=== PATIENT | female | born 1945 | race African-American/Black ===

== ENCOUNTER 2016-07-04 15:44 | Observation (INO) | payer OTHER ==
[2016-07-04] MEDS ORDERED: ASPIRIN 81 MG CHEWABLE TABLETS PO ONE (16:09)
--- NOTE | 2016-07-04 16:09 | PDOC ---
History of Present Illness <Maria Teresa Gimenez - Last Filed: 07/04/16 18:14> - History of Present Illness Beta Marian Contraindications (Core Measure): Yes: Not Prescribed <Valarie Rocha - Last Filed: 07/04/16 19:57> - General Stated Complaint: Irregular Heart Beat Time Seen by Provider: 07/04/16 16:08 - History of Present Illness Initial Comments: 07/04/16 17:26 Patient is a 70 year old female with significant medical hx of early Parkinson s with resting tremor, factor VII blood deficiency, HTN, IDDM, hypothyroidism, chronic renal disease (not on dialysis) who is presenting to the ED with complaint of racing heart rate since yesterday. Patient was in [place] over the past three days and returned yesterday. Last night the patient began having palpitations and went to sleep. This morning the patient woke up and had a return of her symptoms around 11AM. She endorses some mild shortness of breath but denies any chest pain. Patient dialed 911 to come to the ED. Denies lightheadedness, dizziness, diaphoresis, chest pain, LOC, nausea, vomiting, or abdominal pain. The patient received a stress test one year ago that was WNL. Thread Winder: Leeroy Silvestre MD Surgical Hx: cholecystectomy, appendectomy, hernia surgery x4, hysterectomy Social Hx: Denies tobacco, alcohol, or recreational drug use. (Maria Teresa Gimenez) Past History <Maria Teresa Gimenez - Last Filed: 07/04/16 18:14> - Past Medical History Anemia: No Asthma: No Cancer: No Cardiac Disorders: Yes (RAPID HEART BEAT AT TIMES) CVA: No COPD: No CHF: No Dementia: No Diabetes: Yes GI Disorders: Yes (ACID REFLUX) Disorders: No HTN: Yes Hypercholesterolemia: Yes Liver Disease: (fatty liver) Seizures: No Thyroid Disease: Yes (HYPOACTIVE) - Surgical History Abdominal Surgery: Yes (ventral HERNIA 2009, 2013) Appendectomy: Yes (2006) Cardiac Surgery: No Cholecystectomy: Yes Lung Surgery: No Neurologic Surgery: No Orthopedic Surgery: No - Immunization History Immunization Up to Date: No - Psycho/Social/Smoking Cessation Hx Anxiety: No Suicidal Ideation: No Smoking Status: Yes Smoking History: Former smoker Have you smoked in the past 12 months: No Number of Cigarettes Smoked Daily: 0 If you are a former smoker, when did you quit?: 1982 Hx Alcohol Use: No Drug/Substance Use Hx: No Substance Use Type: Alcohol Hx Substance Use Treatment: No <Valarie Rocha - Last Filed: 07/04/16 19:57> - Past Medical History Allergies/Adverse Reactions: Allergies Allergy/AdvReac Type Severity Reaction Status Date / Time No Known Drug Allergies Allergy Verified 07/04/16 16:14 Home Medications: Ambulatory Orders Amlodipine Besylate [Norvasc -] 5 mg PO DAILY 07/26/15 Hydrochlorothiazide [Hctz -] 25 mg PO DAILY 07/26/15 Insulin Glargine,Hum.rec.anlog [Lantus (10mL VIAL) -] 50 units SQ HS 07/26/15 Insulin Lispro [Humalog] 20 unit SQ AC 07/26/15 Levothyroxine [Synthroid -] 75 mcg PO DAILY 07/26/15 Losartan Potassium 50 mg PO DAILY 07/26/15 Metoprolol Succinate [Toprol XL -] 50 mg PO DAILY 07/26/15 Omeprazole [Prilosec] 40 mg PO DAILY 07/26/15 Carbidopa/Levodopa [Carbidopa-Levodopa 25-100 Tab] 1 each PO DAILY 05/15/16 Hydralazine HCl 50 mg PO DAILY 05/15/16 Linagliptin [Tradjenta] 5 mg PO DAILY 05/15/16 Cardiac Specific PMH - Complaint Specific PMHX GERD: No Pacemaker: No <Valarie Rocha - Last Filed: 07/04/16 19:57> Review of Systems <Maria Teresa Gimenez - Last Filed: 07/04/16 18:14> <Valarie Rocha - Last Filed: 07/04/16 19:57> - Review of Systems Comments:: 07/04/16 17:38 CONSTITUTIONAL: Absent: fever, chills, diaphoresis, generalized weakness, malaise, loss of appetite HEENT: Absent: rhinorrhea, nasal congestion, throat pain, throat swelling, difficulty swallowing, mouth swelling, ear pain, eye pain, visual changes CARDIOVASCULAR: Present: irregular heart rate, palpitations Absent: chest pain, syncope, lightheadedness, peripheral edema RESPIRATORY: Present: shortness of breath Absent: cough, dyspnea with exertion, orthopnea, wheezing, stridor, hemoptysis GASTROINTESTINAL: Absent: abdominal pain, abdominal distension, nausea, vomiting, diarrhea, constipation, melena, hematochezia GENITOURINARY: Absent: dysuria, frequency, urgency, hesitancy, hematuria, flank pain, genital pain MUSCULOSKELETAL: Absent: myalgia, arthralgia, joint swelling SKIN: Absent: rash, itching, pallor HEMATOLOGIC/IMMUNOLOGIC: Absent: easy bleeding, easy bruising, lymphadenopathy, frequent infections ENDOCRINE: Absent: unexplained weight gain, unexplained weight loss, heat intolerance, cold intolerance NEUROLOGIC: Absent: headache, focal weakness or paresthesia, dizziness, unsteady gait, seizure, mental status changes, bladder or bowel incontinence. PSYCHIATRIC: Absent: anxiety, depression, suicidal or homicidal ideation, hallucinations (Maria Teresa Gimenez) *Physical Exam <Maria Teresa Gimenez - Last Filed: 07/04/16 18:14> <Valarie Rocha - Last Filed: 07/04/16 19:57> - Vital Signs Last Vital Signs Temp Pulse Resp BP Pulse Ox 97.9 F 71 18 162/69 99 07/04/16 16:10 07/04/16 18:15 07/04/16 18:15 07/04/16 16:10 07/04/16 18:15 - Physical Exam Comments: 07/04/16 17:38 GENERAL: Well developed, well nourished. Awake and alert. No acute distress. HEENT: Normocephalic, atraumatic. PERRLA, EOMI. No conjunctival pallor. Sclera are non- icteric. Moist mucous membranes. Oropharynx is clear. NECK: Supple. Full ROM. Mild JVD. Carotid pulses 2+ and symmetric, without bruits. No thyromegaly. No lymphadenopathy. CARDIOVASCULAR: Regular rate and rhythm. No bruits. No murmurs, rubs, or gallops. Distal pulses are 2+ and symmetric. PULMONARY: No evidence of respiratory distress. Lungs clear to auscultation bilaterally. No wheezing, rales or rhonchi. ABDOMINAL: Soft. Non-tender. Non-distended. No rebound or guarding. No organomegaly. Normoactive bowel sounds. MUSCULOSKELETAL: Normal range of motion at all joints. No bony deformities or tenderness. No CVA tenderness. EXTREMITIES: 2+ pitting edema lower extremities bilaterally. No cyanosis. No clubbing. No calf tenderness. SKIN: Warm and dry. Normal capillary refill. No rashes. No jaundice. NEUROLOGICAL: Alert, awake, appropriate. Cranial nerves 2-12 intact. Normal speech. Gait is normal without ataxia. PSYCHIATRIC: Cooperative. Good eye contact. Appropriate mood and affect. (Maria Teresa Gimenez) Heart Score/ECG Review <Maria Teresa Gimenez - Last Filed: 07/04/16 18:14> <Valarie Rocha - Last Filed: 07/04/16 19:57> #1 07/04/16 17:40 Normal sinus rhythm at 92 bpm Minimal voltage criteria for LVH, may be normal variant Nonspecific T wave abnormality Abnormal ECG (Maria Teresa Gimenez) ED Treatment Course - LABORATORY CBC & Chemistry Diagram: 07/04/16 16:32 07/04/16 16:17 <Maria Teresa Gimenez - Last Filed: 07/04/16 18:14> - LABORATORY CBC & Chemistry Diagram: 07/04/16 16:32 07/04/16 16:17 <Valarie Rocha - Last Filed: 07/04/16 19:57> - ADDITIONAL ORDERS Additional order review: Laboratory Results 07/04/16 07/04/16 07/04/16 16:32 16:32 16:17 INR 1.57 H Sodium 139 Potassium 4.4 Chloride 106 Carbon Dioxide 21 D Anion Gap 12 BUN 39 H Creatinine 2.1 H Creat Clearance w eGFR 23.35 Random Glucose 396 H* D Calcium 9.9 Magnesium 1.6 L Total Bilirubin 0.4 D AST 15 D ALT 11 L Alkaline Phosphatase 139 H Creatine Kinase 70 Troponin I < 0.02 B-Natriuretic Peptide 151.27 H Total Protein 7.3 Albumin 3.4 07/04/16 16:32 RBC 3.76 MCV 89.7 MCHC 32.1 RDW 14.0 MPV 9.2 D Neutrophils % 77.2 D Lymphocytes % 17.0 D Monocytes % 5.3 Eosinophils % 0.3 Basophils % 0.2 - RADIOLOGY Radiology Studies Ordered: Category Date Time Status CHEST X-RAY PORTABLE* [RAD] Stat Radiology 07/04/16 16:10 Completed Radiograph Interpretation: 07/04/16 18:14 Chest X-Ray Impression: No acute pathology or significant change since 05/15/2016. Reported By: Norberto Haney MD (Maria Teresa Gimenez) - Medications Given in the ED: ED Medications Discontinued Medications Generic Name Dose Route Start Last Admin Trade Name Samuel PRN Reason Stop Dose Admin Aspirin 162 mg 07/04/16 16:09 07/04/16 17:06 Asa - PO 07/04/16 16:10 Not Given ONCE ONE *DC/Admit/Observation/Transfer <Maria Teresa Gimenez - Last Filed: 07/04/16 18:14> - Discharge Dispostion Admit: Yes <Valarie Rocha - Last Filed: 07/04/16 19:57> Diagnosis at time of Disposition: Palpitations HTN (hypertension) Qualifiers: Hypertension type: essential hypertension Qualified Code(s): I10 - Essential ( primary) hypertension Chest pain Qualifiers: Chest pain type: other chest pain Qualified Code(s): R07.89 - Other chest pain ; R07.8 - Other chest pain DM2 (diabetes mellitus, type 2) Qualifiers: Diabetes mellitus complication status: with hyperglycemia 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 (Maria Teresa Gimenez)
[2016-07-04 16:14] VITALS: BMI 39.4
[2016-07-04] MEDS ORDERED: ASPIRIN 81 MG CHEWABLE TABLETS ONE (16:18)
[2016-07-04 17:01] LABS: EOSINOPHIL 0.3 % (0-4.5)
[2016-07-04 17:19] LABS: ALBUMIN 3.4 g/dl (3.4-5.0); ANION GAP 12 (8-16); BILIRUBIN,TOTAL 0.4 mg/dL (0.2-1.0); CALCIUM 9.9 mg/dL (8.5-10.1); CO2 21 mmol/L (21-32); CREATININE 2.1 mg/dL (0.55-1.02); MAGNESIUM 1.6 mg/dL (1.8-2.4); SGOT/AST 15 U/L (15-37); SGPT/ALT 11 U/L (12-78)
[2016-07-04 17:20] LABS: BASOPHIL 0.2 % (0-2.0); MCH 28.7 pg (25.7-33.7); MCHC 32.1 g/dl (32.0-36.0); MEAN CELL VOLUME 89.7 fl (80-96); MEAN PLT VOLUME 9.2 fl (7.5-11.1); NEUTROPHILS 77.2 % (42.8-82.8); PLATELET COUNT 208 K/MM3 (134-434); WHITE BLOOD COUNT 6.7 K/mm3 (4.0-10.0)
[2016-07-04 17:22] LABS: ALK PHOS 139 U/L (45-117); TOT PROT 7.3 g/dl (6.4-8.2); TROPONIN I < 0.02 ng/ml (0.00-0.05)
[2016-07-04 17:37] LABS: INR 1.57 (0.82-1.09); PROTHROMBIN TIME (PATIENT) 17.4 SEC (9.98-11.88)
[2016-07-04 18:01] LABS: GLUCOSE,RANDOM 396 mg/dL (74-106)
--- NOTE | 2016-07-04 20:03 | HP ---
CHIEF COMPLAINT: palpitations PCP: Isaac Murguia Cardio: Dr. Hernandez HISTORY OF PRESENT ILLNESS: 70 yr old woman with IDDM, HTN, hypothyroidism, GERD, CKD, BIBEMS for continuous palpitations and intemittent chest pain since 2pm this afternoon. She woke up feeling well, did not have breakfast, did not take her anti-htn meds in the morning, took omeprazole, thyroid and parkinson's meds. She was walking around when the palpitations began and did not resolve with rest or laying down so she called 911. She started feel better once she received an IV medication from the EMS, doesn't recall what it was. Chest pain is located lower mid-sternum, 2/10, nonradiating nonpositional, starting after the palpitations. Denies fever, sob, headache, n/v, hematochezia, visual changes, diarrhea, bug bites. full physical last year, no recent pcp visit, no changes in medications. Was evaluated by Dr. Hernandez with holter monitor last year, found not have arrhythmia. ER course was notable for: (1) ASA 162mg (2) EKG Recent Travel: [place] on Monday for outdoor wedding, drive with frequent rest stops. PAST MEDICAL HISTORY: GERD uncontrolled IDDM II HTN Hypothyroidism CKD stage 4 (GFR 23%) hx of SBO 07/2015 PAST SURGICAL HISTORY: Ventral hernia repairs 2009, 2013, 2016 Appendectomy 2007 Cholecystectomy 2004 Hysterectomy 2004 Social History: lives with sone Smoking: former, quit 1981, 1pk/day for 5 yrs Alcohol: rare Drugs: denies Family History: [place] Allergies No Known Drug Allergies Allergy (Verified 07/04/16 16:14) HOME MEDICATIONS: Home Medications Medication Instructions Recorded Amlodipine Besylate [Norvasc -] 5 mg PO DAILY 07/26/15 Hydrochlorothiazide [Hctz -] 25 mg PO DAILY 07/26/15 Insulin Glargine,Hum.rec.anlog 50 units SQ HS 07/26/15 [Lantus (10mL VIAL) -] Insulin Lispro [Humalog] 20 unit SQ AC 07/26/15 Levothyroxine [Synthroid -] 75 mcg PO DAILY 07/26/15 Losartan Potassium 50 mg PO DAILY 07/26/15 Metoprolol Succinate [Toprol XL -] 50 mg PO DAILY 07/26/15 Omeprazole [Prilosec] 40 mg PO DAILY 07/26/15 Carbidopa/Levodopa 1 each PO DAILY 05/15/16 [Carbidopa-Levodopa 25-100 Tab] Hydralazine HCl 50 mg PO DAILY 05/15/16 Linagliptin [Tradjenta] 5 mg PO DAILY 05/15/16 REVIEW OF SYSTEMS CONSTITUTIONAL: Absent: fever, chills, diaphoresis, generalized weakness, malaise, loss of appetite, weight change HEENT: Absent: rhinorrhea, nasal congestion, throat pain, throat swelling, difficulty swallowing, mouth swelling, ear pain, eye pain, visual changes CARDIOVASCULAR: Present: chest pain, palpitations Absent: syncope, irregular heart rate, lightheadedness, peripheral edema RESPIRATORY: Absent: cough, shortness of breath, dyspnea with exertion, orthopnea, wheezing, stridor, hemoptysis GASTROINTESTINAL: Present: occasional constipation Absent: abdominal pain, abdominal distension, nausea, vomiting, diarrhea, melena , hematochezia GENITOURINARY: Absent: dysuria, frequency, urgency, hesitancy, hematuria, flank pain, genital pain MUSCULOSKELETAL: Absent: myalgia, arthralgia, joint swelling, back pain, neck pain SKIN: Absent: rash, itching, pallor HEMATOLOGIC/IMMUNOLOGIC: Absent: easy bleeding, easy bruising, lymphadenopathy, frequent infections ENDOCRINE: Absent: unexplained weight gain, unexplained weight loss, heat intolerance, cold intolerance NEUROLOGIC: Absent: headache, focal weakness or paresthesias, dizziness, unsteady gait, seizure, mental status changes, bladder or bowel incontinence PHYSICAL EXAMINATION Vital Signs - 24 hr 07/04/16 07/04/16 16:10 18:15 Temperature 97.9 F Pulse Rate 105 H Pulse Rate [ 71 Radial] Respiratory 18 18 Rate Blood Pressure 162/69 O2 Sat by Pulse 99 99 Oximetry (%) GENERAL: Awake, alert, and fully oriented, in no acute distress. HEAD: Normal with no signs of trauma. EYES: Pupils equal, round and reactive to light, extraocular movements intact, sclera anicteric, conjunctiva clear. No lid lag. EARS, NOSE, THROAT: Ears normal, nares patent, oropharynx clear without exudates /lesions. Moist mucous membranes. NECK: Normal range of motion, supple without lymphadenopathy, JVD, or masses. no thyromegaly. LUNGS: Breath sounds equal, clear to auscultation bilaterally. No wheezes, and no crackles. No accessory muscle use. chest non-tender to palpation. HEART: Regular rate and rhythm, normal S1 and S2 without murmur, rub or gallop. ABDOMEN: Soft, obese, well healed scars, nontender, not distended, normoactive bowel sounds, no guarding, no rebound, no masses. MUSCULOSKELETAL: Normal range of motion at all joints. No bony deformities or tenderness. No CVA tenderness. UPPER EXTREMITIES: 2+ pulses, warm, well-perfused. No cyanosis. No clubbing. No peripheral edema. LOWER EXTREMITIES: 2+ pulses, warm, well-perfused. No calf tenderness. No peripheral edema. NEUROLOGICAL: Cranial nerves II-XII intact. Normal speech. facial symmetry PSYCHIATRIC: Cooperative. Good eye contact. Appropriate mood and affect. SKIN: Warm, dry, normal turgor, no rashes or lesions noted, normal capillary refill. Laboratory Results - last 24 hr 07/04/16 07/04/16 07/04/16 16:17 16:32 16:32 WBC 6.7 RBC 3.76 Hgb 10.8 Hct 33.7 MCV 89.7 MCHC 32.1 RDW 14.0 Plt Count 208 MPV 9.2 D Neutrophils % 77.2 D Lymphocytes % 17.0 D Monocytes % 5.3 Eosinophils % 0.3 Basophils % 0.2 INR 1.57 H Sodium 139 Potassium 4.4 Chloride 106 Carbon Dioxide 21 D Anion Gap 12 BUN 39 H Creatinine 2.1 H Creat Clearance w eGFR 23.35 Random Glucose 396 H* D Calcium 9.9 Magnesium 1.6 L Total Bilirubin 0.4 D AST 15 D ALT 11 L Alkaline Phosphatase 139 H Creatine Kinase 70 Troponin I < 0.02 B-Natriuretic Peptide Total Protein 7.3 Albumin 3.4 07/04/16 16:32 WBC RBC Hgb Hct MCV MCHC RDW Plt Count MPV Neutrophils % Lymphocytes % Monocytes % Eosinophils % Basophils % INR Sodium Potassium Chloride Carbon Dioxide Anion Gap BUN Creatinine Creat Clearance w eGFR Random Glucose Calcium Magnesium Total Bilirubin AST ALT Alkaline Phosphatase Creatine Kinase Troponin I B-Natriuretic Peptide 151.27 H Total Protein Albumin Home Medications Medication Instructions Recorded Amlodipine Besylate [Norvasc -] 5 mg PO DAILY 07/26/15 Hydrochlorothiazide [Hctz -] 25 mg PO DAILY 05/22/16 Insulin Glargine,Hum.rec.anlog 50 units SQ HS 07/26/15 [Lantus (10mL VIAL) -] Insulin Lispro [Humalog] 20 unit SQ AC 07/26/15 Levothyroxine [Synthroid -] 75 mcg PO DAILY 07/26/15 Losartan Potassium 50 mg PO DAILY 07/26/15 Metoprolol Succinate [Toprol XL -] 50 mg PO DAILY 07/26/15 Omeprazole [Prilosec] 40 mg PO DAILY 07/26/15 Carbidopa/Levodopa 1 each PO DAILY 05/15/16 [Carbidopa-Levodopa 25-100 Tab] Hydralazine HCl 50 mg PO DAILY 05/15/16 Linagliptin [Tradjenta] 5 mg PO DAILY 05/15/16 ASSESSMENT/PLAN: 70 yr old woman with HTN, IDDM II, presents with atypical chest pain and palpitations, found to have elevated BP placed in observation to r/o ID. - Pt did not have medication list with, will need to verify medication list with pharmacy in the morning. #Atypical chest pain/palpitations, Heart Score 5 - Trend troponins x3 - echo in the morning - continuous cardiac monitoring to r/o arrhythmia - last echo 06/2011 - normal, last stress test 06/2011 clear - tachycardia and elevated BP in setting of medication non-compliance and poor po intake, will re-start anti-htn's and hydrate, r/o exacerbation of thyroid dysfunction, tsh and t4 - consider cardiology evaluation or outpt referral for further assessment, pt not on statin. #Uncontrolled HTN - Norvasc 5mg po daily - Toprol XL 50mg po daily - Hydralazine 50mg po daily - hold hctz 25mg po daily, losartan 50mg po daily due to YASIR - outpatient f/u with PCP for medication optimization(pt on multiple medications likely leading to poor medication compliance) #YASIR on CKD stage 4 -- corrected Na 144 - suspicious for pre-renal due to poor po intake, hydrate IVF 1/2 NS bolus, encourage po intake - urine electrolytes, urine creatine for further evaluation; UrNa >40, FENa 1.5% , RFI 2.1%, likely component of CKD - hold diuretics, avoid nephrotoxic medications - repeat BMP in the AM #IDDM 2, uncontrolled - HbA1c pending - NISS, BGM ACHS - levemir 50subq HS - hold oral hypoglycemics - tradjenta 5mg po 1 tablet daily #Hypothyroidism - levothyroxine 75mcg po daily - TSH and T4 wnl #Parkinson's disease - Sinemet 1 tablet po daily #HypoMg - Mag oxide 800mg po #DVT - SCD's - anticipate short stay #GI - prolisec 40mg po daily #Diet - diabetic, low sodium Visit type - Emergency Visit Emergency Visit: Yes ED Registration Date: 07/04/16 Care time: The patient presented to the Emergency Department on the above date and was hospitalized for further evaluation of their emergent condition. - New Patient This patient is new to me today: Yes Date on this admission: 07/04/16 - Critical Care Critical Care patient: No
[2016-07-04] MEDS ORDERED: SODIUM CHLORIDE 0.45% 500 ML IV SCH (21:00)
--- NOTE | 2016-07-04 21:10 | PN ---
<Todd Colin - Last Filed: 07/04/16 21:10> Teaching Attending Note Name of Resident: Madiha Guaman <Sony Rosales - Last Filed: 07/04/16 21:43> Teaching Attending Note ATTENDING PHYSICIAN STATEMENT I saw and evaluated the patient. I reviewed the resident's note and discussed the case with the resident. I agree with the resident's findings and plan as documented. SUBJECTIVE: Chief Complaint: Palpitations x1 days 70 yof one day hx of palpitations associated with epigastric pain that was 2/10 in intensity and resolved after arrival to ed. She reports prev epi of pal and was monitored with home holter monitor however, no arrhythmias were identified. PMH HTN, diabetes, dyslipidemia, hypothyroidism Surg appendectomy , cholecystectomy, abdominal hernia, hysterectomy Allergies: None Social: No drugs, Quit smoking 1981, No alcohol Family history: Noncontributory OBJECTIVE: Vital Signs: Last Vital Signs Temp Pulse Resp BP Pulse Ox 97.9 F 71 18 162/69 99 07/04/16 16:10 07/04/16 18:15 07/04/16 18:15 07/04/16 16:10 07/04/16 18:15 Physical Exam: GENERAL: Awake, alert, and fully oriented, in no acute distress HEENT: Atraumatic. PERRLA, EOMI. Moist mucosa. No JVD LUNGS: No distress, speaks full sentences, clear to auscultation bilaterally HEART: Regular rate and rhythm, normal S1 and S2, no murmurs, rubs or gallops, peripheral pulses normal and equal bilaterally. ABDOMEN: Soft, nontender, normoactive bowel sounds. No guarding, no rebound. No masses EXTREMITIES: Normal inspection, Normal range of motion, no edema. No clubbing or cyanosis. NEUROLOGICAL: Cranial nerves II through XII grossly intact. Normal speech, normal gait, no focal sensorimotor deficits SKIN: Warm, Dry, normal turgor, no rashes or lesions noted. Labs: CBCD WBC 6.7 K/mm3 (4.0-10.0) 07/04/16 16:32 RBC 3.76 M/mm3 (3.60-5.2) 07/04/16 16:32 Hgb 10.8 GM/dL (10.7-15.3) 07/04/16 16:32 Hct 33.7 % (32.4-45.2) 07/04/16 16:32 MCV 89.7 fl (80-96) 07/04/16 16:32 MCHC 32.1 g/dl (32.0-36.0) 07/04/16 16:32 RDW 14.0 % (11.6-15.6) 07/04/16 16:32 Plt Count 208 K/MM3 (134-434) 07/04/16 16:32 MPV 9.2 fl (7.5-11.1) D 07/04/16 16:32 CMP Sodium 139 mmol/L (136-145) 07/04/16 16:17 Potassium 4.4 mmol/L (3.5-5.1) 07/04/16 16:17 Chloride 106 mmol/L (98-107) 07/04/16 16:17 Carbon Dioxide 21 mmol/L (21-32) D 07/04/16 16:17 Anion Gap 12 (8-16) 07/04/16 16:17 BUN 39 mg/dL (7-18) H 07/04/16 16:17 Creatinine 2.1 mg/dL (0.55-1.02) H 07/04/16 16:17 Creat Clearance w eGFR 23.35 (>60) 07/04/16 16:17 Calcium 9.9 mg/dL (8.5-10.1) 07/04/16 16:17 Total Bilirubin 0.4 mg/dL (0.2-1.0) D 07/04/16 16:17 AST 15 U/L (15-37) D 07/04/16 16:17 ALT 11 U/L (12-78) L 07/04/16 16:17 Alkaline Phosphatase 139 U/L (45-117) H 07/04/16 16:17 Total Protein 7.3 g/dl (6.4-8.2) 07/04/16 16:17 Albumin 3.4 g/dl (3.4-5.0) 07/04/16 16:17 Imaging: EXAM#: TYPE/EXAM: RESULT: [id number] CT/ABDOMEN CT WITHOUT CONTRAST HISTORY PROVIDED: Abdominal pain. Sequential axial images were obtained from the domes of the diaphragm through the aortic bifurcation following administration of oral contrast material. The liver, spleen, pancreas, adrenal glands and kidneys demonstrate no significant abnormalities. Patient is S/P cholecystectomy. There is no evidence of biliary ductal dilatation. There is no evidence of intra- abdominal or retroperitoneal lymphadenopathy or fluid collections. The density is noted within the anterior abdominal wall at the site of an incisional scar. These changes may be postoperative in nature. No discrete abscess or hematoma is identified. Clinical correlation is advised. IMPRESSION: Postoperative changes of the anterior abdominal wall, otherwise essentially normal CT scan of the abdomen with no evidence of acute pathology. <> Reported By: Norberto Haney MD ASSESSMENT AND PLAN: 1.Palpitations and atypical chest pain in a patient with multiple risk factors for CAD - Serial cardiac enzymes - Echocardiogram - Telemetry monitoring - Cardiology evaluation - Update TSH 2 Uncontrolled HTN- noncompliant with meds today - Reinstate home medications. Monitor blood pressure and adjust medications accordingly - Hold diuretics 3.Acute renal failure - IVF - Hold diuretics - Repeat bmp in AM 4 Diabetes- uncontrolled - Stat dose short acting insulin - Hold oral hypo and cover with insulin sliding scale and basal insulin. 5 DVT PPX - SCDs Place under observation. Documentation prepared by Sony Rosales, acting as medical operations supervisor for Dr. Cristi MD.
[2016-07-04] MEDS ORDERED: MAGNESIUM OXIDE 400 MG TABLET (FP) PO ONE (21:18)
[2016-07-04] MEDS: amLODIPine BESYLATE 5 MG TABLET (FP) PO SCH (21:30)
[2016-07-04] MEDS ORDERED: INSULIN DETEMIR 100 UNITS/ML MDV SQ SCH (22:00)
[2016-07-04] MEDS ORDERED: METOPROLOL TARTRATE 25 MG TABLET (FP) PO ONE (22:41)
[2016-07-04] MEDS ORDERED: amLODIPine BESYLATE 5 MG TABLET (FP) ONE (22:58)
[2016-07-04] MEDS ORDERED: MAGNESIUM OXIDE 400 MG TABLET (FP) ONE (22:59)
[2016-07-04] MEDS ORDERED: METOPROLOL TARTRATE 25 MG TABLET (FP) ONE (22:59)
[2016-07-04] MEDS ORDERED: INSULIN DETEMIR 100 UNITS/ML MDV SQ ONE (23:01)
[2016-07-04] MEDS: INSULIN SLIDING SCALE (NOVOLOG) 1 VIAL SQ SCH (23:14)
[2016-07-05 00:56] LABS: URINE CREATININE 77.3 mg/dL (20-320)
[2016-07-05 01:01] LABS: TROPONIN I 0.05 ng/ml (0.00-0.05)
[2016-07-05 01:37] LABS: THYROID STIMULATING HORMONE 0.93 uIU/ml (0.358-3.74)
[2016-07-05] MEDS: INSULIN SLIDING SCALE (NOVOLOG) 1 VIAL SQ SCH ×3 (06:33→16:32)
[2016-07-05] MEDS ORDERED: INSULIN (NOVOLOG) ASPART 100 UNITS/ML 10ML VIAL SQ SCH (07:00)
[2016-07-05] MEDS ORDERED: LEVOTHYROXINE NA 75 MCG TABLET (FP) PO SCH (07:00)
[2016-07-05 07:50] LABS: CALCIUM 10.2 mg/dL (8.5-10.1)
[2016-07-05 07:53] LABS: COCKROFT - GAULT 46.019; CREATININE 1.9 mg/dL (0.55-1.02)
[2016-07-05 08:53] LABS: TROPONIN I 0.05 ng/ml (0.00-0.05)
[2016-07-05] MEDS: amLODIPine BESYLATE 5 MG TABLET (FP) PO SCH (09:24)
[2016-07-05] MEDS ORDERED: PANTOPRAZOLE 40 MG TABLET (FP) PO SCH (10:00)
[2016-07-05] MEDS ORDERED: CARBIDOPA/LEVODOPA 25/100 TABLET (FP) PO SCH (10:00)
[2016-07-05 10:24] LABS: URINE APPEARANCE CLOUDY; URINE BILIRUBIN NEGATIVE (NEGATIVE); URINE COLOR LTYELLOW; URINE GLUCOSE (UA) NEGATIVE (NEGATIVE); URINE KETONE NEGATIVE (NEGATIVE); URINE NITRITE NEGATIVE (NEGATIVE); URINE UROBILINOGEN NEGATIVE E.U./dl (0.2-1.0)
[2016-07-05 10:27] LABS: URINE BLOOD 1+ (NEGATIVE); URINE LEUK ESTERASE 3+ (NEGATIVE); URINE PROTEIN 2+ (NEGATIVE)
[2016-07-05 11:18] LABS: URINE MUCUS RARE; URINE RBC 3 /hpf (0-3); URINE WBC 587 /hpf (3-5); YEAST MANY
--- NOTE | 2016-07-05 11:35 | MSN ---
Progress Note (SOAP) - Subjective Chief Complaint: Chest palpitations and chest pain History of Present Illness: MEDICAL STUDENT NOTE The patient is a 70 year old female with past medical history significant for early Parkinson Disease with resting tremor, HTN, IDDM, hypothryoidism, CKD stage 4, and GERD who presented to the ED on 07/04/16 with a complaint of chest palpitations and chest pain. The patient experienced palpitations on 07/03 in the evening after returning from [place] via car. She went to bed and when she woke up the next morning she still had the palpitations but with chest pain. She called EMS and was brought to the ED. The patient was placed on observation for follow up with echocardiogram and to track toponins to r/o SD. Today the patient was resting comfortably in bed. She stated that she experienced palpitations when she was showering but they remitted once she was resting in bed. She stated that she does not usually eat breakfast and this morning she only had some milk and juice. She denied any nausea, changes in bowel movements, dysuria, headache, dizziness, shakiness, chest pain, dyspnea, dyspnea on exertion or orthopnea. - Current Medications Current Medications: Active Medications Amlodipine Besylate (Norvasc -) 5 mg PO DAILY [facility] Last Admin: 07/05/16 09:24 Dose: 5 mg Carbidopa/Levodopa (Sinemet 25/100 -) 1 each PO DAILY [facility] Last Admin: 07/05/16 09:24 Dose: 1 each Insulin Aspart (Novolog Vial Sliding Scale -) 1 vial SQ [facility] PRN Reason: Protocol Last Admin: 07/05/16 06:33 Dose: Not Given Insulin Detemir (Levemir Vial) 50 units SQ HS [facility] Last Admin: 07/04/16 22:30 Dose: 50 unit Levothyroxine Sodium (Synthroid -) 75 mcg PO DAILY@0700 [facility] Last Admin: 07/05/16 06:34 Dose: 75 mcg Pantoprazole Sodium (Protonix -) 40 mg PO DAILY [facility] Last Admin: 07/05/16 09:24 Dose: 40 mg - Objective Vital Signs: Vital Signs Temperature 99.2 F 07/05/16 05:00 Pulse Rate 71 07/05/16 05:00 Respiratory Rate 18 07/05/16 05:00 Blood Pressure 130/58 07/05/16 05:00 O2 Sat by Pulse Oximetry (%) 99 07/05/16 01:05 Constitutional: Yes: Well Nourished, No Distress, Calm Eyes: Yes: WNL, Conjunctiva Clear HENT: Yes: WNL, Atraumatic, Normocephalic. No: Nasal Congestion, Pharyngeal Erythema, Tonsillar Exudate Neck: Yes: WNL, Supple, Trachea Midline Cardiovascular: Yes: WNL, Regular Rate and Rhythm, S1, S2. No: Pulse Irregular , S3, S4 Respiratory: Yes: WNL, Regular, CTA Bilaterally. No: Rhonchi, SOB, SOB on Exertion, Wheezes Gastrointestinal: Yes: WNL, Normal Bowel Sounds, Soft. No: Splenomegaly, Tenderness, Epigastrium, Tenderness, Rebound Peripheral Pulses WNL: Yes Peripheral Pulses: Left Radial: 2+, Right Radial: 2+, Left Doralis Pedis: 2+, Right Dorsalis Pedis: 2+ Edema: (bilateral UE and LE) Integumentary: Yes: WNL Neurological: Yes: WNL, Alert, Oriented Psychiatric: Yes: WNL, Alert, Oriented Labs Lab Results: CBC, BMP 07/05/16 05:35 Assessment/Plan MEDICAL STUDENT ASSESSMENT AND PLAN Daiana Pinky is a 70 year old female who presented to the ED with chest palpitations and chest pain of one day duration. #Atypical chest pain/palpitations - Troponins x3 <0.02, 0.05, 0.05 - Echo: awaiting results #HTN controlled - Most recently 136/50 - Continue norvasc 5mg PO qD #YASIR on CKD - BUN: 36, Cr: 1.9 - Follow up with primary care physician as out patient #IDDM, uncontrolled - HgbA1C: 7.2 - Random glucose: 89 - Follow up with primary care physician as out patient #Hypomagnesmia - Magnesium oxide 800mg PO given - Consider repeat Mg level #Hypothyroidism - Continue levothyroxine 75 mcg PO qD at 0700 #Parkinson Disease - Continue Sinemet 25/100 PO qD #DVT prophylaxis - SCDs #Fluids - Not needed #Electrolytes - Consider repeat measurement of Mg level #Nutrition - Diabetic diet Disposition: Patient can be discharged after review of echo results.
[2016-07-05] MEDS ORDERED: MAGNESIUM OXIDE 400 MG TABLET (FP) PO ONE (14:14)
[2016-07-05] MEDS ORDERED: METOPROLOL SUCCINATE 50 MG TAB.SR.24H (FP) PO SCH (14:15)
--- NOTE | 2016-07-05 14:15 | PN ---
Teaching Attending Note Name of Resident: Liz Mcknight ATTENDING PHYSICIAN STATEMENT I saw and evaluated the patient. I reviewed the resident's note and discussed the case with the resident. I agree with the resident's findings and plan as documented. SUBJECTIVE:states she felt palpitations while in the shower. can not relate symptoms to time of day or related to food consumption or no assoc CP. states she has symptoms once a week which self resolve quickly. had 24H holter monitor in the past which was negative. denies CP, SOB,fever, chills, cough, dysuria, urinary frequency. had stress test last year and reports as negative. never had cardiac cath OBJECTIVE: Last Vital Signs Temp Pulse Resp BP Pulse Ox 99.1 F 78 18 136/50 99 07/05/16 10:00 07/05/16 10:00 07/05/16 10:00 07/05/16 10:00 07/05/16 01:05 General NAD CV S1 S2 RRR no murmur/rub/gallop Lungs CTA B/L no wheezing/rales/rhonchi abdomen soft NT/ND no suprapubic tenderness ASSESSMENT AND PLAN: 70yo F with PMH HTN, DM, CKD, hypothyroid, parkinsons disease presented to the ER and was admitted for further evaluation of their emergent condition 1. palpititations- unknown etiology. possible dehydration as reported as dehydrated on presentation. symptoms this am likely due to hypoglycemia. cardiac markers neg x2. echo pending. would likely benefit from ziopatch or similar entity for monitoring. will reach out to community affairs director if can be ordered and placed prior to discharge. TSH wnl. 2. +UA- asymptomatic. will hold treatment at this time 3. Acute on CKD- FeNa 1.34.unknown baseline. improved. hold ARB. will need kidney function to be monitored for improved 4. hypomagnesemia- mg 800mg 5. HTN- controlled. hydralazine and HCTZ held. will re-start betablocker as should not be abruptly stopped. will hold hydralazine and HCTZ on discharge 6. d/c planning pending results of echo
[2016-07-05 14:43] VITALS: BP 152/61; PULSE 79; TEMP 98.2
--- NOTE | 2016-07-05 15:08 | PN ---
Physical Exam: SUBJECTIVE: Patient seen and examined OBJECTIVE: Vital Signs Period Temp Pulse Resp BP Sys/Navas Pulse Ox Last 24 Hr 98.1 F-99.2 F 71-91 16-18 130-175/50-85 99-99 GENERAL: The patient is awake, alert, and fully oriented, in no acute distress. HEAD: Normal with no signs of trauma. EYES: PERRL, extraocular movements intact, sclera anicteric, conjunctiva clear. No ptosis. ENT: Ears normal, nares patent, oropharynx clear without exudates, moist mucous membranes. NECK: Trachea midline, full range of motion, supple. LUNGS: Breath sounds equal, clear to auscultation bilaterally, no wheezes, no crackles, no accessory muscle use. HEART: Regular rate and rhythm, S1, S2 without murmur, rub or gallop. ABDOMEN: Soft, nontender, nondistended, normoactive bowel sounds, no guarding, no rebound, no hepatosplenomegaly, no masses. EXTREMITIES: 2+ pulses, warm, well-perfused, no edema. NEUROLOGICAL: Cranial nerves II through XII grossly intact. Normal speech, gait not observed. PSYCH: Normal mood, normal affect. SKIN: Warm, dry, normal turgor, no rashes or lesions noted Laboratory Results - last 24 hr 07/04/16 07/05/16 07/05/16 23:09 00:14 00:14 Sodium Potassium Chloride Carbon Dioxide Anion Gap BUN Creatinine POC Glucometer [phone] Random Glucose Calcium Troponin I 0.05 TSH 0.93 Free T4 1.33 Urine Color Urine Appearance Urine pH Ur Specific [place] Urine Protein Urine Glucose (UA) Urine Ketones Urine Blood Urine Nitrite Urine Bilirubin Urine Urobilinogen Ur Leukocyte Esterase Urine RBC Urine WBC Ur Epithelial Cells Urine Mucus Urine Yeast Urine Osmolality Ur Random Sodium Ur Random Potassium Ur Random Chloride Urine Creatinine 07/05/16 07/05/16 07/05/16 00:36 05:13 05:35 Sodium 145 Potassium 3.8 Chloride 111 H Carbon Dioxide 25 Anion Gap 9 BUN 36 H Creatinine 1.9 H POC Glucometer 47 Random Glucose 64 L D Calcium 10.2 H Troponin I 0.05 TSH Free T4 Urine Color Urine Appearance Urine pH Ur Specific [place] Urine Protein Urine Glucose (UA) Urine Ketones Urine Blood Urine Nitrite Urine Bilirubin Urine Urobilinogen Ur Leukocyte Esterase Urine RBC Urine WBC Ur Epithelial Cells Urine Mucus Urine Yeast Urine Osmolality Ur Random Sodium 79 Ur Random Potassium 17.4 Ur Random Chloride 72 Urine Creatinine 77.3 07/05/16 07/05/16 07/05/16 05:35 06:02 09:55 Sodium Potassium Chloride Carbon Dioxide Anion Gap BUN Creatinine POC Glucometer 64 Random Glucose Calcium Troponin I Cancelled TSH Free T4 Urine Color Urine Appearance Urine pH Ur Specific [place] Urine Protein Urine Glucose (UA) Urine Ketones Urine Blood Urine Nitrite Urine Bilirubin Urine Urobilinogen Ur Leukocyte Esterase Urine RBC Urine WBC Ur Epithelial Cells Urine Mucus Urine Yeast Urine Osmolality 484 Ur Random Sodium Ur Random Potassium Ur Random Chloride Urine Creatinine 07/05/16 07/05/16 09:55 12:27 Sodium Potassium Chloride Carbon Dioxide Anion Gap BUN Creatinine POC Glucometer 89 Random Glucose Calcium Troponin I TSH Free T4 Urine Color Ltyellow Urine Appearance Cloudy Urine pH 5.0 Ur Specific [place] 1.013 Urine Protein 2+ H Urine Glucose (UA) Negative Urine Ketones Negative Urine Blood 1+ H Urine Nitrite Negative Urine Bilirubin Negative Urine Urobilinogen Negative Ur Leukocyte Esterase 3+ H Urine RBC 3 Urine WBC 587 Ur Epithelial Cells Rare Urine Mucus Rare Urine Yeast Many Urine Osmolality Ur Random Sodium Ur Random Potassium Ur Random Chloride Urine Creatinine Active Medications Generic Name Dose Route Start Last Admin Trade Name Freq PRN Reason Stop Dose Admin Amlodipine Besylate 5 mg 07/04/16 21:00 07/05/16 09:24 Norvasc - PO 5 mg DAILY [facility] Administration Carbidopa/Levodopa 1 each 07/05/16 10:00 07/05/16 09:24 Sinemet 25/100 - PO 1 each DAILY [facility] Administration Insulin Aspart 1 vial 07/04/16 22:00 07/05/16 12:57 Novolog Vial Sliding Scale - SQ Not Given [facility] Protocol Insulin Detemir 50 units 07/04/16 22:00 07/04/16 22:30 Levemir Vial SQ 50 unit HS [facility] Administration Levothyroxine Sodium 75 mcg 07/05/16 07:00 07/05/16 06:34 Synthroid - PO 75 mcg DAILY@0700 [facility] Administration Metoprolol Succinate 50 mg 07/05/16 14:15 Toprol Xl - PO DAILY [facility] Pantoprazole Sodium 40 mg 07/05/16 10:00 07/05/16 09:24 Protonix - PO 40 mg DAILY [facility] Administration ASSESSMENT/PLAN: patient being discharged, please review DC summary Visit type - Emergency Visit Emergency Visit: Yes ED Registration Date: 07/04/16 Care time: The patient presented to the Emergency Department on the above date and was hospitalized for further evaluation of their emergent condition. - New Patient This patient is new to me today: Yes Date on this admission: 07/05/16 - Critical Care Critical Care patient: No - Discharge Referral Referred to [facility] Med P.C.: No
--- NOTE | 2016-07-05 17:02 | DS ---
Physical Exam: SUBJECTIVE: Patient seen and examined, denies chest pain, shortness of breath, palpitations. OBJECTIVE: Vital Signs Period Temp Pulse Resp BP Sys/Navas Pulse Ox Last 24 Hr 98.1 F-99.2 F 71-91 16-18 130-175/50-85 99-99 PHYSICAL EXAM GENERAL: The patient is awake, alert, and fully oriented, in no acute distress. HEAD: Normal with no signs of trauma. EYES: PERRL, extraocular movements intact, sclera anicteric, conjunctiva clear. ENT: Ears normal, nares patent, oropharynx clear without exudates, moist mucous membranes. NECK: Trachea midline, full range of motion, supple. LUNGS: Breath sounds equal, clear to auscultation bilaterally, no wheezes, no crackles, no accessory muscle use. HEART: Regular rate and rhythm, S1, S2, systolic murmur, rub or gallop. ABDOMEN: Soft, nontender, nondistended, normoactive bowel sounds, no guarding, no rebound, no hepatosplenomegaly, no masses. EXTREMITIES: 2+ pulses, warm, well-perfused, no edema. NEUROLOGICAL: Cranial nerves II through XII grossly intact. Normal speech, gait not observed. PSYCH: Normal mood, normal affect. SKIN: Warm, dry, normal turgor, no rashes or lesions noted. LABS Laboratory Results - last 24 hr 07/04/16 07/05/16 07/05/16 23:09 00:14 00:14 Sodium Potassium Chloride Carbon Dioxide Anion Gap BUN Creatinine POC Glucometer [phone] Random Glucose Calcium Troponin I 0.05 TSH 0.93 Free T4 1.33 Urine Color Urine Appearance Urine pH Ur Specific [place] Urine Protein Urine Glucose (UA) Urine Ketones Urine Blood Urine Nitrite Urine Bilirubin Urine Urobilinogen Ur Leukocyte Esterase Urine RBC Urine WBC Ur Epithelial Cells Urine Mucus Urine Yeast Urine Osmolality Ur Random Sodium Ur Random Potassium Ur Random Chloride Urine Creatinine 07/05/16 07/05/16 07/05/16 00:36 05:13 05:35 Sodium 145 Potassium 3.8 Chloride 111 H Carbon Dioxide 25 Anion Gap 9 BUN 36 H Creatinine 1.9 H POC Glucometer 47 Random Glucose 64 L D Calcium 10.2 H Troponin I 0.05 TSH Free T4 Urine Color Urine Appearance Urine pH Ur Specific [place] Urine Protein Urine Glucose (UA) Urine Ketones Urine Blood Urine Nitrite Urine Bilirubin Urine Urobilinogen Ur Leukocyte Esterase Urine RBC Urine WBC Ur Epithelial Cells Urine Mucus Urine Yeast Urine Osmolality Ur Random Sodium 79 Ur Random Potassium 17.4 Ur Random Chloride 72 Urine Creatinine 77.3 07/05/16 07/05/16 07/05/16 05:35 06:02 09:55 Sodium Potassium Chloride Carbon Dioxide Anion Gap BUN Creatinine POC Glucometer 64 Random Glucose Calcium Troponin I Cancelled TSH Free T4 Urine Color Urine Appearance Urine pH Ur Specific [place] Urine Protein Urine Glucose (UA) Urine Ketones Urine Blood Urine Nitrite Urine Bilirubin Urine Urobilinogen Ur Leukocyte Esterase Urine RBC Urine WBC Ur Epithelial Cells Urine Mucus Urine Yeast Urine Osmolality 484 Ur Random Sodium Ur Random Potassium Ur Random Chloride Urine Creatinine 07/05/16 07/05/16 07/05/16 09:55 12:27 15:36 Sodium Potassium Chloride Carbon Dioxide Anion Gap BUN Creatinine POC Glucometer 89 163 Random Glucose Calcium Troponin I TSH Free T4 Urine Color Ltyellow Urine Appearance Cloudy Urine pH 5.0 Ur Specific [place] 1.013 Urine Protein 2+ H Urine Glucose (UA) Negative Urine Ketones Negative Urine Blood 1+ H Urine Nitrite Negative Urine Bilirubin Negative Urine Urobilinogen Negative Ur Leukocyte Esterase 3+ H Urine RBC 3 Urine WBC 587 Ur Epithelial Cells Rare Urine Mucus Rare Urine Yeast Many Urine Osmolality Ur Random Sodium Ur Random Potassium Ur Random Chloride Urine Creatinine HOSPITAL COURSE: Date of Admission:07/04/16 Date of Discharge: 07/05/16 This is a 70 year old female with PMHx HTN, DM, CKD, hypothyroid, Parkinson disease presented to the emergency room with palpitations and was admitted for further evaluation of their emergent condition Palpitations of unknown etiology possibly due to dehydration, reported as dehydrated on presentation. Cardiac markers neg x3. Echocardiogram showing mild left ventricle relaxation impairment, normal left ventricle function, RSVP 30- 40mmhg, mild MR, TR, AR. Instructed to follow up with cardiology with in one week for further evaluation and possible holter monitor. TSH wnl. acute on chronic kidney disease, ARB held and Cr improved. hypertension controlled. Minutes to complete discharge: 35 Discharge Summary Reason For Visit: TYPE 2 DIABETES MELLITUS/CHEST PAIN/HYPERTENSION Current Active Problems Chest pain (Acute) DM2 (diabetes mellitus, type 2) (Acute) HTN (hypertension) (Acute) Palpitations (Acute) Condition: Improved - Instructions Diet, Activity, Other Instructions: Ms. Vance, you have been evaluated for your recent episode of heart palpitations. You have not experienced an acute heart event. Your palpitations may have been related to multiple causes including stress or medications. We would like you to follow up with your automation manager with in one week for further evaluation of your condition. You may need a holter monitor for assess your cardiac rhythm, please discuss with your automation manager. Please follow up with your primary physician for further evaluation and review of your medications with in one week. For now continue all home medications. IF you experience any worsening of symptoms including chest pain, shortness of breath, or increased palpitations, please return to the emergency room. Referrals: Isaac Cole [Primary Care Provider] - Leeroy Silvestre MD [Staff Physician] - Disposition: HOME - Home Medications Comprehensive Discharge Medication List: Ambulatory Orders Amlodipine Besylate [Norvasc -] 5 mg PO DAILY 07/26/15 Hydrochlorothiazide [Hctz -] 25 mg PO DAILY 07/26/15 Insulin Glargine,Hum.rec.anlog [Lantus (10mL VIAL) -] 50 units SQ HS 07/26/15 Insulin Lispro [Humalog] 20 unit SQ AC 07/26/15 Levothyroxine [Synthroid -] 75 mcg PO DAILY 07/26/15 Losartan Potassium 50 mg PO DAILY 07/26/15 Metoprolol Succinate [Toprol XL -] 50 mg PO DAILY 07/26/15 Omeprazole [Prilosec] 40 mg PO DAILY 07/26/15 Carbidopa/Levodopa [Carbidopa-Levodopa 25-100 Tab] 1 each PO TID 05/15/16 Hydralazine HCl 50 mg PO DAILY 05/15/16 Linagliptin [Tradjenta] 5 mg PO DAILY 05/15/16 This patient is new to me today: Yes Date on this admission: 07/05/16 Emergency Visit: Yes ED Registration Date: 07/04/16 Care time: The patient presented to the Emergency Department on the above date and was hospitalized for further evaluation of their emergent condition. Critical Care patient: No - Discharge Referral Referred to [facility] No
--- NOTE | 2016-07-05 22:57 | EKG ---
Test Reason : Blood Pressure : / mmHG Vent. Rate : 092 BPM Atrial Rate : 092 BPM P-R Int : 132 ms QRS Dur : 072 ms QT Int : 360 ms P-R-T Axes : 046 -18 053 degrees QTc Int : 445 ms NORMAL SINUS RHYTHM MINIMAL VOLTAGE CRITERIA FOR LVH, MAY BE NORMAL VARIANT NONSPECIFIC T WAVE ABNORMALITY ABNORMAL ECG WHEN COMPARED WITH ECG OF 15-MAY-2016 17:05, T WAVE VARIATION Confirmed by JONATAN MORALES, CHERIE ([id number]) on 07/05/2016 10:57:30 PM Referred By: Confirmed By:CHERIE CHEUNG MD
== END 2016-07-05 18:59 | disposition home or self-care (01) ==
LOC: JER 15:44 → JERBED 19:59 → J4W 07-05 00:59
PROVIDERS: ADMIT Internal Medicine; ATTEND Internal Medicine
PROC: 3E0337Z Introduction of Electrolytic and Water Balance Substance into Peripheral Vein, Percutaneous Approach (ICD-10-PCS; principal; 2016-07-04)
PROC: 3E013VG Introduction of Insulin into Subcutaneous Tissue, Percutaneous Approach (ICD-10-PCS; 2016-07-04)
DX: R00.2 Palpitations (principal); E11.65 Type 2 diabetes mellitus with hyperglycemia; E03.9 Hypothyroidism, unspecified; I12.9 Hypertensive chronic kidney disease with stage 1 through stage 4 chronic kidney disease, or unspecified chronic kidney disease; N18.4 Chronic kidney disease, stage 4 (severe); Z79.4 Long term (current) use of insulin; K21.9 Gastro-esophageal reflux disease without esophagitis; K76.0 Fatty (change of) liver, not elsewhere classified; Z87.891 Personal history of nicotine dependence; R07.89 Other chest pain; G20 Parkinson's disease; D68.2 Hereditary deficiency of other clotting factors; N17.9 Acute kidney failure, unspecified; E83.42 Hypomagnesemia
CPT/HCPCS: 36415; 71010-TC; 80048; 80053; 81003; 81015; 82436; 82550; 82570; 83036; 83735; 83880; 83935; 84133; 84300; 84439; 84443; 84484; 85025; 85610; 93005; 93010; 93306-TC; 99285-25; G0378

== ENCOUNTER 2016-12-15 13:05 | Emergency (ER) | payer OTHER ==
[2016-12-15 13:17] VITALS: BP 144/84; PULSE 71; TEMP 98.5; BMI 31.9
[2016-12-15 14:16] LABS: BASOPHIL 0.3 % (0-2.0); EOSINOPHIL 0.6 % (0-4.5); MCH 27.6 pg (25.7-33.7); MCHC 32.8 g/dl (32.0-36.0); MEAN CELL VOLUME 84.1 fl (80-96); MEAN PLT VOLUME 7.3 fl (7.5-11.1); NEUTROPHILS 66.8 % (42.8-82.8); PLATELET COUNT 227 K/MM3 (134-434); WHITE BLOOD COUNT 6.7 K/mm3 (4.0-10.0)
[2016-12-15 14:43] LABS: ANION GAP 8 (8-16); CALCIUM 9.7 mg/dL (8.5-10.1); CO2 25 mmol/L (21-32); CREATININE 2.2 mg/dL (0.55-1.02); GLUCOSE,RANDOM 87 mg/dL (74-106); SGOT/AST 13 U/L (15-37); SGPT/ALT 11 U/L (12-78)
[2016-12-15 14:48] LABS: ALK PHOS 159 U/L (45-117); BILIRUBIN,TOTAL 0.2 mg/dL (0.2-1.0)
--- NOTE | 2016-12-15 15:27 | PDOC ---
History of Present Illness - General History Source: Patient Exam Limitations: No Limitations - History of Present Illness Initial Comments: 12/15/16 15:36 The patient is a 70 year old female, with a significant past medical history of resting tremors, HTN, factor VII blood deficiency, HTN, DM, hypothyroidism, early onset of Parkinson's disease, and chronic renal disease (not on dialysis) , who presents to the emergency department with swollen RLE and redness for about a week. She notes having chronic swelling in her RLE with more leg swelling this past week. She also notes having some mild dry nonproductive cough with a runny nose. She denies any recent long travel. She denies any recent trauma or injury to her RLE. She denies recent fevers, chills, headache or dizziness. She denies recent nausea, vomit, diarrhea or constipation. She denies recent dysuria, frequency, urgency or hematuria. She denies recent chest pain or shortness of breath. Allergies: NKA Past surgical history: Cholecystectomy, appendectomy , hernia repair x4, hysterectomy Social history: Nonsmoker. Denies EtOH use and recreational drug use. Family History: DVT(sisters) <Guille Mosquera - Last Filed: 12/15/16 15:36> <Doir Weber - Last Filed: 12/15/16 16:19> - General Chief Complaint: Edema Stated Complaint: SWOLLEN RT LEG Time Seen by Provider: 12/15/16 13:33 Past History <Guille Mosquera - Last Filed: 12/15/16 15:36> - Past Medical History Anemia: No Asthma: No Cancer: No Cardiac Disorders: Yes (RAPID HEART BEAT AT TIMES) CVA: No COPD: No CHF: No Dementia: No Diabetes: Yes GI Disorders: Yes (ACID REFLUX) Disorders: No HTN: Yes Hypercholesterolemia: Yes Liver Disease: Yes (fatty liver) Seizures: No Thyroid Disease: Yes (HYPOACTIVE) - Surgical History Abdominal Surgery: Yes (ventral HERNIA 2009, 2013) Appendectomy: Yes (2006) Cardiac Surgery: No Cholecystectomy: Yes Lung Surgery: No Neurologic Surgery: No Orthopedic Surgery: No - Immunization History Immunization Up to Date: Yes - Suicide/Smoking/Psychosocial Hx Smoking Status: Yes Smoking History: Never smoked Have you smoked in the past 12 months: No Number of Cigarettes Smoked Daily: 0 If you are a former smoker, when did you quit?: 1981 Information on smoking cessation initiated: No Hx Alcohol Use: No Drug/Substance Use Hx: No Substance Use Type: Alcohol Hx Substance Use Treatment: No <Dior Weber - Last Filed: 12/15/16 16:19> - Past Medical History Allergies/Adverse Reactions: Allergies Allergy/AdvReac Type Severity Reaction Status Date / Time No Known Drug Allergies Allergy Verified 12/15/16 13:09 Home Medications: Ambulatory Orders Amlodipine Besylate [Norvasc -] 5 mg PO DAILY 07/26/15 Insulin Glargine,Hum.rec.anlog [Lantus (10mL VIAL) -] 50 units SQ HS 07/26/15 Insulin Lispro [Humalog] 20 unit SQ AC 07/26/15 Levothyroxine [Synthroid -] 75 mcg PO DAILY 07/26/15 Metoprolol Succinate [Toprol XL -] 50 mg PO DAILY 07/26/15 Omeprazole [Prilosec] 40 mg PO DAILY 07/26/15 Carbidopa/Levodopa [Carbidopa-Levodopa 25-100 Tab] 1 each PO TID 05/15/16 Linagliptin [Tradjenta] 5 mg PO DAILY 05/15/16 Review of Systems - Review of Systems Able to Perform ROS?: Yes Comments:: 12/15/16 15:36 GENERAL/CONSTITUTIONAL: No fever or chills. No weakness. HEAD, EYES, EARS, NOSE AND THROAT: No change in vision. No ear pain or discharge. No sore throat. CARDIOVASCULAR: No chest pain or shortness of breath. RESPIRATORY: +cough. No wheezing, or hemoptysis. GASTROINTESTINAL: No nausea, vomiting, diarrhea or constipation. GENITOURINARY: No dysuria, frequency, or change in urination. MUSCULOSKELETAL: +RLE swelling/redness. No joint or muscle swelling or pain. No neck or back pain. SKIN: No rash NEUROLOGIC: No headache, vertigo, loss of consciousness, or change in strength/ sensation. ENDOCRINE: No increased thirst. No abnormal weight change. HEMATOLOGIC/LYMPHATIC: No anemia, easy bleeding, or history of blood clots. ALLERGIC/IMMUNOLOGIC: No hives or skin allergy. <Guille Mosquera - Last Filed: 12/15/16 15:36> *Physical Exam - Vital Signs Last Vital Signs Temp Pulse Resp BP Pulse Ox 98.5 F 71 16 144/84 98 12/15/16 13:09 12/15/16 13:09 12/15/16 13:09 12/15/16 13:09 12/15/16 13:09 - Physical Exam Comments: 12/15/16 15:36 GENERAL: Awake, alert, and fully oriented, in no acute distress HEAD: No signs of trauma EYES: PERRLA, EOMI, sclera anicteric, conjunctiva clear ENT: Auricles normal inspection, hearing grossly normal, nares patent, Moist mucosa NECK: Normal ROM, supple, JVD, or masses LUNGS: Breath sounds equal, clear to auscultation bilaterally. No wheezes, and no crackles HEART: Regular rate and rhythm, normal S1 and S2, no murmurs, rubs or gallops ABDOMEN: Soft, nontender, normoactive bowel sounds. No guarding, no rebound. No masses EXTREMITIES: 1+ pitting edema to mid [place] bilaterally( right is slight greater than the left.) Normal range of motion. No clubbing or cyanosis. No cords, erythema, or tenderness. 2+DP/PT pulses. NEUROLOGICAL: Normal speech, normal gait, moves all extremities equally. Speech clear. Resting tremor right hand. SKIN: Warm, Dry, normal turgor, no rashes or lesions noted. <Guille Mosquera - Last Filed: 12/15/16 15:36> - Vital Signs Last Vital Signs Temp Pulse Resp BP Pulse Ox 98.5 F 71 16 144/84 98 12/15/16 13:09 12/15/16 13:09 12/15/16 13:09 12/15/16 13:09 12/15/16 13:09 <Dior Weber - Last Filed: 12/15/16 16:19> ED Treatment Course - LABORATORY CBC & Chemistry Diagram: 12/15/16 14:10 12/15/16 14:10 - ADDITIONAL ORDERS Additional order review: Laboratory Results 12/15/16 14:10 Sodium 139 Potassium 5.0 D Chloride 106 Carbon Dioxide 25 Anion Gap 8 BUN 37 H Creatinine 2.2 H Creat Clearance w eGFR 22.13 Random Glucose 87 D Calcium 9.7 Total Bilirubin 0.2 D AST 13 L ALT 11 L Alkaline Phosphatase 159 H B-Natriuretic Peptide 154.74 H Total Protein 7.0 Albumin 3.0 L 12/15/16 14:10 RBC 3.96 MCV 84.1 MCHC 32.8 RDW 16.0 H D MPV 7.3 L D Neutrophils % 66.8 Lymphocytes % 25.3 D Monocytes % 7.0 Eosinophils % 0.6 D Basophils % 0.3 <EvelineGuille - Last Filed: 12/15/16 15:36> - LABORATORY CBC & Chemistry Diagram: 12/15/16 14:10 12/15/16 14:10 - ADDITIONAL ORDERS Additional order review: Laboratory Results 12/15/16 14:10 Sodium 139 Potassium 5.0 D Chloride 106 Carbon Dioxide 25 Anion Gap 8 BUN 37 H Creatinine 2.2 H Creat Clearance w eGFR 22.13 Random Glucose 87 D Calcium 9.7 Total Bilirubin 0.2 D AST 13 L ALT 11 L Alkaline Phosphatase 159 H B-Natriuretic Peptide 154.74 H Total Protein 7.0 Albumin 3.0 L 12/15/16 14:10 RBC 3.96 MCV 84.1 MCHC 32.8 RDW 16.0 H D MPV 7.3 L D Neutrophils % 66.8 Lymphocytes % 25.3 D Monocytes % 7.0 Eosinophils % 0.6 D Basophils % 0.3 - RADIOLOGY Radiology Studies Ordered: Category Date Time Status DUPLEX VASCUL US-1 LEG [US] Stat Ultrasound 12/15/16 13:57 Completed <Dior Weber - Last Filed: 12/15/16 16:19> Medical Decision Making - Medical Decision Making 12/15/16 15:26 70 yo h/o CKD stage, [address] scott[address] htn, hypothyroid and parkinsons, here with c/o right leg swelling. . no cp no sob. no f/c no trauma. has had swelling in that leg in the past. does have mild cough recently. nonproductive. and nasal congestion. no fever. no change to medications. on exam . awake alert lungs clear bilat. heart rrr no mrg. abd soft nt nd. skin warm and dry. nuero awake alert oriented. resting tremor hand. legs pitting edema bilaterally, right greater than left. 12/15/16 15:[address] Douglas Vásquez, states baseline creatinine is 2.0 follows by animal care specialist. will see pt tomorrow. she can call office anytime or show up between 9 an 5 pm. <Dior Weber - Last Filed: 12/15/16 16:19> *DC/Admit/Observation/Transfer - Attestations Scribe Attestion: 12/15/16 15:36 Documentation prepared by Guille Mosquera, acting as medical office secretary for Dior Weber MD. <Guille Mosquera - Last Filed: 12/15/16 15:36> - Discharge Dispostion Admit: No <Dior Weber - Last Filed: 12/15/16 16:19> Diagnosis at time of Disposition: Edema, CKD (chronic kidney disease) - Discharge Dispostion Disposition: HOME Condition at time of disposition: Improved - Referrals Referrals: Isaac Cole [Primary Care Provider] - - Patient Instructions Printed Discharge Instructions: Edema (Alternative Therapy) Additional Instructions: follow up with your primary doctor tomorrow between 9 - 5. return for any problems or concerns. elevate legs to help with swelling. follow up with dr. scott regarding your kidney disease.
--- NOTE | 2016-12-16 09:11 | EKG ---
Test Reason : Blood Pressure : / mmHG Vent. Rate : 074 BPM Atrial Rate : 074 BPM P-R Int : 128 ms QRS Dur : 080 ms QT Int : 380 ms P-R-T Axes : -14 -26 010 degrees QTc Int : 421 ms NORMAL SINUS RHYTHM MINIMAL VOLTAGE CRITERIA FOR LVH, MAY BE NORMAL VARIANT ANTEROSEPTAL INFARCT , AGE UNDETERMINED ABNORMAL ECG Confirmed by COURTNEY OATES MD ([id number]) on 12/16/2016 9:11:02 AM Referred By: Confirmed By:COURTNEY OATES MD
== END 2016-12-15 16:35 | disposition home or self-care (01) ==
LOC: JER 13:05
DX: R60.9 Edema, unspecified (principal); I12.9 Hypertensive chronic kidney disease with stage 1 through stage 4 chronic kidney disease, or unspecified chronic kidney disease; E11.22 Type 2 diabetes mellitus with diabetic chronic kidney disease; N18.9 Chronic kidney disease, unspecified; Z79.84 Long term (current) use of oral hypoglycemic drugs; D68.2 Hereditary deficiency of other clotting factors; E03.9 Hypothyroidism, unspecified; E78.00 Pure hypercholesterolemia, unspecified; G20 Parkinson's disease; K21.9 Gastro-esophageal reflux disease without esophagitis; K76.0 Fatty (change of) liver, not elsewhere classified
CPT/HCPCS: 36415; 71020-TC; 80053; 83880; 85025; 93005; 93010; 93971-TC; 99282-25

== ENCOUNTER 2017-05-16 00:26 | Observation (INO) | payer OTHER ==
[2017-05-16 01:08] VITALS: BMI 29.8
[2017-05-16] MEDS ORDERED: ASPIRIN 81 MG CHEWABLE TABLETS PO ONE (01:23)
--- NOTE | 2017-05-16 01:23 | PDOC ---
History of Present Illness - General History Source: Patient Exam Limitations: No Limitations <Anabel Martínez - Last Filed: 05/16/17 02:15> - General History Source: Patient Exam Limitations: No Limitations - History of Present Illness Presenting Symptoms: Chest Pain Timing/Duration: reports: resolved prior to arrival Severity/Quality: reports: pressure Chest Pain Radiation: reports: other (left chest) Activities at Onset: reports: other (the cp woke her from sleep) Prior Chest Pain/Cardiac Workup: reports: No prior chest pain Modifying Factors: improves with: nitroglycerin Nitro Today/Relief: Yes: 0.4 mg x 2 ASA Contraindications (Core Measure): Yes: Allergy (pt REFUSED asprin) Beta Marian taken at Home (Core Measure): Yes Beta Marian Contraindications (Core Measure): Yes: Not Prescribed Beta Marian indicated at this time? (Core Measure): Yes Associated Symptoms: Yes: Shortness of Breath <Valarie Rocha - Last Filed: 05/16/17 02:50> - General Stated Complaint: CHEST PAIN Time Seen by Provider: 05/16/17 00:37 - History of Present Illness Initial Comments: 05/16/17 01:47 The patient is a 71 year old female, with a significant past medical history of resting tremors, , factor VII blood deficiency,HTN DM, hypothyroidism, chronic renal disease (not on dialysis) early onset of Parkinson's disease who presents to the emergency department with sudden onset chest pain. Patient reports going to bed in her usual state of health until chest pain woke her up from sleep. Patient reports pain radiates to L shoulder which she describes is pressure like , radiating to L shoulder. Patient reports pain is accompanied with SOB, palpitations, and irregular heart beat. EMS arrived to scene and administered 2 nitroglycerin tablets. Upon arrival, patients pain subsided and presents for further evaluation. Patient also notes recent dyspnea on exertion for the past 2 months that is relieved at rest. Patient is followed up by [facility] In[facility] and is scheduled for a stress test on 05/25. Patient denies headache or dizziness. Patient denies fever, chills, abdominal pain, nausea, vomit, diarrhea or constipation. Patient denies dysuria, frequency, urgency or hematuria. Patient denies sick contacts or recent travel. Allergies: NKA Past surgical history: Abdominal surgeries, Complete hysterectomy, Cholecystectomy Social history: Hx of smoking PCP: [facility] (Anabel Martínez) Past History <Anabel Martínez - Last Filed: 05/16/17 02:15> - Past Medical History Anemia: No Asthma: No Cancer: No Cardiac Disorders: Yes (RAPID HEART BEAT AT TIMES) CVA: No COPD: No CHF: No Dementia: No Diabetes: Yes GI Disorders: Yes (ACID REFLUX) Disorders: No HTN: Yes Hypercholesterolemia: Yes Liver Disease: Yes (fatty liver) Seizures: No Thyroid Disease: Yes (HYPOACTIVE) - Surgical History Abdominal Surgery: Yes (ventral HERNIA 2009, 2013) Appendectomy: Yes (2006) Cardiac Surgery: No Cholecystectomy: Yes Lung Surgery: No Neurologic Surgery: No Orthopedic Surgery: No - Immunization History Immunization Up to Date: Yes - Suicide/Smoking/Psychosocial Hx Smoking Status: Yes Smoking History: Smoker current status UNK Have you smoked in the past 12 months: No Number of Cigarettes Smoked Daily: 0 If you are a former smoker, when did you quit?: 1981 Information on smoking cessation initiated: No Hx Alcohol Use: No Drug/Substance Use Hx: No Substance Use Type: Alcohol Hx Substance Use Treatment: No <Valarie Rocha - Last Filed: 05/16/17 02:50> - Past Medical History Allergies/Adverse Reactions: Allergies Allergy/AdvReac Type Severity Reaction Status Date / Time No Known Drug Allergies Allergy Verified 12/15/16 13:09 Home Medications: Ambulatory Orders Amlodipine Besylate [Norvasc -] 5 mg PO DAILY 07/26/15 Insulin Glargine,Hum.rec.anlog [Lantus (10mL VIAL) -] 50 units SQ HS 07/26/15 Insulin Lispro [Humalog] 20 unit SQ AC 07/26/15 Levothyroxine [Synthroid -] 75 mcg PO DAILY 07/26/15 Metoprolol Succinate [Toprol XL -] 50 mg PO DAILY 07/26/15 Omeprazole [Prilosec] 40 mg PO DAILY 07/26/15 Carbidopa/Levodopa [Carbidopa-Levodopa 25-100 Tab] 1 each PO TID 05/15/16 Linagliptin [Tradjenta] 5 mg PO DAILY 05/15/16 Cardiac Specific PMH - Complaint Specific PMHX GERD: No Pacemaker: No <Valarie Rocha - Last Filed: 05/16/17 02:50> Review of Systems - Review of Systems Able to Perform ROS?: Yes <Anabel Martínez - Last Filed: 05/16/17 02:15> <Valarie Rocha - Last Filed: 05/16/17 02:50> - Review of Systems Comments:: 05/16/17 01:47 CONSTITUTIONAL: Absent: fever, chills, diaphoresis, generalized weakness, malaise, loss of appetite HEENT: Absent: rhinorrhea, nasal congestion, throat pain, throat swelling, difficulty swallowing, mouth swelling, ear pain, eye pain, visual changes CARDIOVASCULAR: +chest pain, palpitations, irregular heart rate Absent: chest pain, syncope, lightheadedness, peripheral edema RESPIRATORY: Absent: cough, shortness of breath, dyspnea with exertion, orthopnea, wheezing, stridor, hemoptysis GASTROINTESTINAL: Absent: abdominal pain, abdominal distension, nausea, vomiting, diarrhea, constipation, melena, hematochezia GENITOURINARY: Absent: dysuria, frequency, urgency, hesitancy, hematuria, flank pain, genital pain MUSCULOSKELETAL: Absent: myalgia, arthralgia, joint swelling SKIN: Absent: rash, itching, pallor HEMATOLOGIC/IMMUNOLOGIC: Absent: easy bleeding, easy bruising, lymphadenopathy, frequent infections ENDOCRINE: Absent: unexplained weight gain, unexplained weight loss, heat intolerance, cold intolerance NEUROLOGIC: Absent: headache, focal weakness or paresthesias, dizziness, unsteady gait, seizure, mental status changes, bladder or bowel incontinence PSYCHIATRIC: Absent: anxiety, depression, suicidal or homicidal ideation, hallucinations. (Anabel Martínez) *Physical Exam <Anabel Martínez - Last Filed: 05/16/17 02:15> <Valarie Rocha - Last Filed: 05/16/17 02:50> - Vital Signs Last Vital Signs Temp Pulse Resp BP Pulse Ox 98.7 F 96 H 18 163/92 98 05/16/17 00:55 05/16/17 00:55 05/16/17 00:55 05/16/17 00:55 05/16/17 00:55 - Physical Exam Comments: 05/16/17 01:47 GENERAL: Well developed, well nourished. Awake and alert. No acute distress. HEENT: Normocephalic, atraumatic. PERRLA, EOMI. No conjunctival pallor. Sclera are non- icteric. Moist mucous membranes. Oropharynx is clear. NECK: Supple. Full ROM. No JVD. Carotid pulses 2+ and symmetric, without bruits. No thyromegaly. No lymphadenopathy. CARDIOVASCULAR: Regular rate and rhythm. No murmurs, rubs, or gallops. Distal pulses are 2+ and symmetric. PULMONARY: No evidence of respiratory distress. Lungs clear to auscultation bilaterally. No wheezing, rales or rhonchi. ABDOMINAL: +Protuberant. Soft. Non-tender. Non-distended. No rebound or guarding. No organomegaly. Normoactive bowel sounds. MUSCULOSKELETAL Normal range of motion at all joints. No bony deformities or tenderness. No CVA tenderness. EXTREMITIES: No cyanosis. No clubbing. No edema. No calf tenderness. SKIN: Warm and dry. Normal capillary refill. No rashes. No jaundice. NEUROLOGICAL: Alert, awake, appropriate. Cranial nerves 2-12 intact. No deficits to light touch and temperature in face, upper extremities and lower extremities. No motor deficits in the in face, upper extremities and lower extremities. Normoreflexic in the upper and lower extremities. Normal speech. Toes are down-going bilaterally. Gait is normal without ataxia. PSYCHIATRIC: Cooperative. Good eye contact. Appropriate mood and affect. (Anabel Martínez) ED Treatment Course - LABORATORY CBC & Chemistry Diagram: 05/16/17 01:25 05/16/17 01:25 <Anabel Martínez - Last Filed: 05/16/17 02:15> - LABORATORY CBC & Chemistry Diagram: 05/16/17 01:25 05/16/17 01:25 <Valarie Rocha - Last Filed: 05/16/17 02:50> - ADDITIONAL ORDERS Additional order review: Laboratory Results 05/16/17 05/16/17 01:25 01:25 PT with INR 15.80 H INR 1.40 H Sodium 137 Potassium 3.8 Chloride 102 Carbon Dioxide 21 Anion Gap 14 BUN 25 H Creatinine 2.4 H Creat Clearance w eGFR 19.96 Random Glucose 445 H* Calcium 9.0 Magnesium 2.1 Total Bilirubin 0.3 D AST 13 L ALT 11 L Alkaline Phosphatase 154 H Creatine Kinase 122 Troponin I 0.03 Total Protein 6.7 Albumin 2.8 L 05/16/17 01:25 RBC 3.83 MCV 85.7 MCHC 33.7 RDW 15.1 MPV 8.0 Neutrophils % 68.0 Lymphocytes % 24.4 Monocytes % 6.8 Eosinophils % 0.5 Basophils % 0.3 - RADIOLOGY Radiology Studies Ordered: Category Date Time Status CHEST X-RAY PORTABLE* [RAD] Stat Radiology 05/16/17 01:24 Taken - Medications Given in the ED: ED Medications Discontinued Medications Generic Name Dose Route Start Last Admin Trade Name Samuel PRN Reason Stop Dose Admin Aspirin 162 mg 05/16/17 01:23 05/16/17 01:39 Asa - PO 05/16/17 01:24 162 mg ONCE ONE Administration Metoprolol Tartrate 25 mg 05/16/17 01:28 05/16/17 01:39 Lopressor - PO 05/16/17 01:29 25 mg ONCE ONE Administration Medical Decision Making <Anabel Martínez - Last Filed: 05/16/17 02:15> <Valarie Rocha - Last Filed: 05/16/17 02:50> - Medical Decision Making 05/16/17 02:48 71-year-old female brought in by ambulance after she awoke this evening with chest pain radiating to her shoulder. Chest pain resolved after receiving several nitroglycerin ROS positive for increasing exertional dyspnea with walking over the past several months. She actually did see a psychology clinician in th e past [address] [place] [address] [address] and was seen by either admitted Dr. Allred or Dr. Peña and had an echo done She does have a stress test already scheduled with a psychology clinician. She says she did take transfer this evening before going to bed, but her serum glucose is about 400 and she was given subcutaneous insolent for this She does have chronic renal insufficiency with her creatinine normally pain between 1.9 and 2.1 She is followed at [facility] and will be a hospitalist admission ( Valarie Rocha) *DC/Admit/Observation/Transfer <Anabel Martínez - Last Filed: 05/16/17 02:15> - Discharge Dispostion Admit: Yes <Valarie Rocha - Last Filed: 05/16/17 02:50> Diagnosis at time of Disposition: CKD (chronic kidney disease) DM2 (diabetes mellitus, type 2) Qualifiers: Diabetes mellitus longwall foreman insulin use: with longwall foreman use Diabetes mellitus complication status: with hyperglycemia Qualified Code(s): E11.65 - Type 2 diabetes mellitus with hyperglycemia HTN (hypertension) Qualifiers: Hypertension type: essential hypertension Qualified Code(s): I10 - Essential ( primary) hypertension Chest pain Qualifiers: Chest pain type: other chest pain Qualified Code(s): R07.89 - Other chest pain - Discharge Dispostion Decision to Admit order Date/Time: Decision to Admit Order Category Date Time Status Decision to Admit to Hospital Routine Admission 05/16/17 02:21 Active - Attestations Scribe Attestion: 05/16/17 01:47 Documentation prepared by Anabel Martínez, acting as medical record librarian for Valarie Rocha MD (Anabel Martínez)
[2017-05-16] MEDS ORDERED: METOPROLOL TARTRATE 25 MG TABLET (FP) PO ONE (01:28)
[2017-05-16 01:34] LABS: BASO % 0.3 % (0-2.0); EOS % 0.5 % (0-4.5); HEMATOCRIT 32.8 % (32.4-45.2); HEMOGLOBIN 11.1 GM/dL (10.7-15.3); LYMPH % 24.4 % (8-40); MCH 28.9 pg (25.7-33.7); MCHC 33.7 g/dl (32.0-36.0); MEAN CELL VOLUME 85.7 fl (80-96); MONO % 6.8 % (3.8-10.2); PLATELET COUNT 210 K/MM3 (134-434); RBC 3.83 M/mm3 (3.60-5.2); RDW 15.1 % (11.6-15.6)
[2017-05-16 01:46] LABS: INR 1.4 (0.82-1.09); PROTHROMBIN TIME (PATIENT) 15.8 SEC (9.98-11.88)
[2017-05-16] MEDS ORDERED: ASPIRIN COATED 81 MG TABLET.EC ONE (01:46)
[2017-05-16 01:58] LABS: ALBUMIN 2.8 g/dl (3.4-5.0); ANION GAP 14 (8-16); BILIRUBIN,TOTAL 0.3 mg/dL (0.2-1.0); BLOOD UREA NITROGEN 25 mg/dL (7-18); CHLORIDE 102 mmol/L (98-107); CO2 21 mmol/L (21-32); CREATININE 2.4 mg/dL (0.55-1.02); MAGNESIUM 2.1 mg/dL (1.8-2.4); POTASSIUM 3.8 mmol/L (3.5-5.1); SGOT/AST 13 U/L (15-37); SGPT/ALT 11 U/L (12-78); SODIUM 137 mmol/L (136-145); TOT PROT 6.7 g/dl (6.4-8.2)
[2017-05-16 02:00] LABS: ALK PHOS 154 U/L (45-117)
[2017-05-16 02:06] LABS: GLUCOSE,RANDOM 445 mg/dL (74-106)
--- NOTE | 2017-05-16 02:17 | PN ---
Teaching Attending Note Name of Resident: Hui Gayle ATTENDING PHYSICIAN STATEMENT I saw and evaluated the patient. I reviewed the resident's note and discussed the case with the resident. I agree with the resident's findings and plan as documented. SUBJECTIVE: 71 F with Pmhx of DM, ckd, HLD, hypohyriodism who presents with left sided chest pain, that awoke her from sleep. She recieved 0.4mg of NItro 2 times. States she had factor VII def. so she refused asa. Her chest pain radiated to her left shoulder. States she is scheduled for a stress test on 05/25. States her chest pain has now resolved. Also, states she had associated palpitations. Notes chest pain resolved after nitro. OBJECTIVE: Physical: VS: Vital Signs Period Temp Pulse Resp BP Sys/Navas Pulse Ox Last 24 Hr 98.7 F 96 18 163/92 98 GEN: NAD, resting in bed, AA0X3 HEENT: NCAT, PERRL, Throat without erythema or exudates CARD: RRR S1, S2 RESP: CTAB ABD: BSx4, NTD to palpation EXT:-C/C/E CBCD WBC 6.0 K/mm3 (4.0-10.0) 05/16/17 01:25 RBC 3.83 M/mm3 (3.60-5.2) 05/16/17 01:25 Hgb 11.1 GM/dL (10.7-15.3) 05/16/17 01:25 Hct 32.8 % (32.4-45.2) 05/16/17 01:25 MCV 85.7 fl (80-96) 05/16/17 01:25 MCHC 33.7 g/dl (32.0-36.0) 05/16/17 01:25 RDW 15.1 % (11.6-15.6) 05/16/17 01:25 Plt Count 210 K/MM3 (134-434) 05/16/17 01:25 MPV 8.0 fl (7.5-11.1) 05/16/17 01:25 CMP Sodium 137 mmol/L (136-145) 05/16/17 01:25 Potassium 3.8 mmol/L (3.5-5.1) 05/16/17 01:25 Chloride 102 mmol/L (98-107) 05/16/17 01:25 Carbon Dioxide 21 mmol/L (21-32) 05/16/17 01:25 Anion Gap 14 (8-16) 05/16/17 01:25 BUN 25 mg/dL (7-18) H 05/16/17 01:25 Creatinine 2.4 mg/dL (0.55-1.02) H 05/16/17 01:25 Creat Clearance w eGFR 19.96 (>60) 05/16/17 01:25 Random Glucose 445 mg/dL (74-106) H* 05/16/17 01:25 Calcium 9.0 mg/dL (8.5-10.1) 05/16/17 01:25 Total Bilirubin 0.3 mg/dL (0.2-1.0) D 05/16/17 01:25 AST 13 U/L (15-37) L 05/16/17 01:25 ALT 11 U/L (12-78) L 05/16/17 01:25 Alkaline Phosphatase 154 U/L (45-117) H 05/16/17 01:25 Total Protein 6.7 g/dl (6.4-8.2) 05/16/17 01:25 Albumin 2.8 g/dl (3.4-5.0) L 05/16/17 01:25 CARDIAC ENZYMES Creatine Kinase 122 IU/L (26-192) 05/16/17 01:25 Troponin I 0.03 ng/ml (0.00-0.05) 05/16/17 01:25 Home Medications Medication Instructions Recorded Amlodipine Besylate [Norvasc -] 5 mg PO DAILY 07/26/15 Insulin Glargine,Hum.rec.anlog 50 units SQ HS 07/26/15 [Lantus (10mL VIAL) -] Insulin Lispro [Humalog] 20 unit SQ AC 07/26/15 Levothyroxine [Synthroid -] 75 mcg PO DAILY 07/26/15 Metoprolol Succinate [Toprol XL -] 50 mg PO DAILY 07/26/15 Omeprazole [Prilosec] 40 mg PO DAILY 07/26/15 Carbidopa/Levodopa 1 each PO TID 05/15/16 [Carbidopa-Levodopa 25-100 Tab] Linagliptin [Tradjenta] 5 mg PO DAILY 05/15/16 EKG: NSR QtC 459 ECHO 07/20 - EF 72, impaired relaxation GRADE 1 Diastolic dysfxn, Mild TR, MR, CXR- No Acute Process (my read) HEART: 5 ASSESSMENT AND PLAN: 71 F with Pmhx of DM, ckd, factor VII def, HLD, hypohyriodism who presents with left sided chest pain, 1.) Chest Pain/Palpitations - RO ACS - Trend Trop/EKG - Refusing ASA due to factor VII def - BB, 02, Nitro/Morphine prn pain - Cardio Consult - Lipid Panel/1c if not already done - TSH 2.) DM - Uncontrolled - IVF gentle - Hold PO meds - FS - RAISS - A1c - Restart Lantus Tomorrow night, if not NPO 3.) HTN Uncontrolled - C/W Amodipine 4.) Hypothyriodiism] - C/ W Synthriod - Checl TSH 5) YASIR on CKD - Base CR 1.8 - U lytes - Gentle hydration - Renally dose meds - Trend Cr 6.) Dvt Ppx - Scds Place in Obs-Tele
[2017-05-16] MEDS ORDERED: INSULIN REGULAR HUMAN 100 UNITS/ML *VIAL SQ STA (02:20)
[2017-05-16] MEDS ORDERED: INSULIN REGULAR HUMAN 100 UNITS/ML *VIAL ONE (02:46)
[2017-05-16] MEDS ORDERED: SODIUM CHLORIDE 1,000 ML IV SCH (03:15)
[2017-05-16] MEDS ORDERED: MORPHINE SULFATE 10 MG/1 ML *VIAL IVPUSH PRN (03:21)
--- NOTE | 2017-05-16 03:29 | HP ---
CHIEF COMPLAINT: palpitations, chest pressure PCP: HISTORY OF PRESENT ILLNESS: 71 y/o F with PMH resting tremor, factor 7 deficiency, HTN, DM, hypothyroidism, CKD (not on dialysis), early onset Parkinson's dz, who presents to the ED c/o palpitations and chest pressure for an hour. As per pt, she was sleeping this evening at 9pm when she developed sudden palpitations, and L sided chest pressure, which woke her up from sleep. Pt states that the pain was 8/10, constant, with radiation to her L shoulder, a/w SOB. It was not positional and had no exacerbating fx. She became worried, so she alerted her son to call the ambulance. When pt was brought in by EMS, she was given two nitroglycerin tablets which alleviated her pain. Pt denies MARKHAM, fever, chills, N/V/D, or changes in urinary or bowel function. Pt states that she had a similar pain a year ago and came to [facility]. She underwent a full cardiac work-up and was told she had angina. She follows with Dr. Allred and has never had a cath. Scheduled to have a stress test on 05/25. Concerning her DM, pt states that her diabetes is "well controlled." At home she takes humalog in the AM (usually 4 units) and lantus at night (between 38- 40 units). 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 Smoking: Quit smoking in her early 30's, had smoked 1 ppd for 2 yrs prior. Alcohol: social drinker Drugs: denies Family History: father- massive AL (age 79), mother - AL (age 60), sisters- AL, CABG, DM, cardiac issues Allergies No Known Drug Allergies Allergy (Verified 12/15/16 13:09) HOME MEDICATIONS: Home Medications Medication Instructions Recorded Amlodipine Besylate [Norvasc -] 5 mg PO DAILY 07/26/15 Insulin Glargine,Hum.rec.anlog 50 units SQ HS 07/26/15 [Lantus (10mL VIAL) -] Insulin Lispro [Humalog] 20 unit SQ AC 07/26/15 Levothyroxine [Synthroid -] 75 mcg PO DAILY 07/26/15 Metoprolol Succinate [Toprol XL -] 50 mg PO DAILY 07/26/15 Omeprazole [Prilosec] 40 mg PO DAILY 07/26/15 Carbidopa/Levodopa 1 each PO TID 05/15/16 [Carbidopa-Levodopa 25-100 Tab] Linagliptin [Tradjenta] 5 mg PO DAILY 05/15/16 REVIEW OF SYSTEMS CONSTITUTIONAL: Absent: fever, chills, diaphoresis, generalized weakness, malaise, loss of appetite, weight change HEENT: Absent: rhinorrhea, nasal congestion, throat pain, throat swelling, difficulty swallowing, mouth swelling, ear pain, eye pain, visual changes CARDIOVASCULAR: +palpitations, chest pressure Absent: chest pain, syncope, palpitations, irregular heart rate, lightheadedness , peripheral edema RESPIRATORY: +SOB Absent: cough, shortness of breath, dyspnea with exertion, orthopnea, wheezing, stridor, hemoptysis GASTROINTESTINAL: Absent: abdominal pain, abdominal distension, nausea, vomiting, diarrhea, constipation, melena, hematochezia GENITOURINARY: Absent: dysuria, frequency, urgency, hesitancy, hematuria, flank pain, genital pain MUSCULOSKELETAL: Absent: myalgia, arthralgia, joint swelling, back pain, neck pain SKIN: Absent: rash, itching, pallor HEMATOLOGIC/IMMUNOLOGIC: Absent: easy bleeding, easy bruising, lymphadenopathy, frequent infections ENDOCRINE: Absent: unexplained weight gain, unexplained weight loss, heat intolerance, cold intolerance NEUROLOGIC: Absent: headache, focal weakness or paresthesias, dizziness, unsteady gait, seizure, mental status changes, bladder or bowel incontinence PSYCHIATRIC: Absent: anxiety, depression, suicidal or homicidal ideation, hallucinations. PHYSICAL EXAMINATION Vital Signs 05/16/17 00:55 Temperature 98.7 F Pulse Rate 96 H Respiratory 18 Rate Blood Pressure 163/92 O2 Sat by Pulse 98 Oximetry (%) GENERAL: Pleasant woman, lying comfortably in bed. Awake, alert, and fully oriented, in no acute distress. HEAD: Normal with no signs of trauma. EYES: Pupils equal, round and reactive to light, extraocular movements intact, sclera anicteric, conjunctiva clear. EARS, NOSE, THROAT: Ears normal, nares patent, oropharynx clear without exudates. NECK: Normal range of motion, supple LUNGS: Breath sounds equal, clear to auscultation bilaterally. No wheezes, and no crackles. No accessory muscle use. HEART: Tachycardic rate and rhythm, normal S1 and S2 without murmur, rub or gallop. ABDOMEN: Soft, nontender, not distended, normoactive bowel sounds, no guarding, no rebound LOWER EXTREMITIES: 2+ posterior tibial pulses, warm, well-perfused. No calf tenderness. No peripheral edema. NEUROLOGICAL: Cranial nerves II-XII intact. Laboratory Results 05/16/17 05/16/17 05/16/17 01:25 01:25 01:25 WBC 6.0 RBC 3.83 Hgb 11.1 Hct 32.8 MCV 85.7 MCH 28.9 MCHC 33.7 RDW 15.1 Plt Count 210 MPV 8.0 Neutrophils % 68.0 Lymphocytes % 24.4 Monocytes % 6.8 Eosinophils % 0.5 Basophils % 0.3 PT with INR 15.80 H INR 1.40 H Sodium 137 Potassium 3.8 Chloride 102 Carbon Dioxide 21 Anion Gap 14 BUN 25 H Creatinine 2.4 H Creat Clearance w eGFR 19.96 Random Glucose 445 H* Calcium 9.0 Magnesium 2.1 Total Bilirubin 0.3 D AST 13 L ALT 11 L Alkaline Phosphatase 154 H Creatine Kinase 122 Troponin I 0.03 Total Protein 6.7 Albumin 2.8 L TESTS -ECHO 07/2016: grade 1 diastolic dysfnc, mild TR, MR. EF 72% -EKG: normal sinus, rate 96bpm, W[place] 142ms, QRS 80ms, Qtc 459ms ASSESSMENT/PLAN: 71 y/o F with PMH resting tremor, factor 7 deficiency, HTN, DM, hypothyroidism, CKD (not on dialysis), early onset Parkinson's dz, who presents to the ED c/o palpitations and chest pressure for an hour. Pt admitted to tele obs for chest pressure r/o ACS. #Chest pressure, r/o ACS -C/o L sided chest pressure, with radiation to L shoulder. Similar episode in past -HEART score 4- moderate -First trop (-), will continue to trend. Next at 6AM -Refusing aspirin d/t factor 7 def -Telemetry monitoring -Continue metoprolol 25mg PO qd, adjust as needed. -Morphine 2mg IVP q6h PRN for pain, may also use SL nitro -Continue 2L NC -Cardio consult- Dr. Allred -F/u lipid panel #Hyperglycemia 2/2 poorly controlled DM -ISS -BGM ACHS -Can add lantus in PM if eating -F/u A1c #HTN- currently controlled -Continue metoprolol 25mg PO qd -Continue amlodipine 5mg PO qd #Hypothyroidism -Continue levothyroxine 75 mcg PO qd -F/u TSH #YASIR superimposed on CKD -Pt baseline ~1.7 -F/u urine lytes -gentle hydration #F/E/N IV NS 100 cc/hr Continue to monitor electrolytes Can add diet once sugar better controlled #PPX DVT: SCD's #Dispo Continued monitoring on tele obs Visit type - Emergency Visit Emergency Visit: Yes ED Registration Date: 05/16/17 Care time: The patient presented to the Emergency Department on the above date and was hospitalized for further evaluation of their emergent condition. - New Patient This patient is new to me today: Yes Date on this admission: 05/16/17 - Critical Care Critical Care patient: No Hospitalist Screening - Colonoscopy Questionnaire Colonoscopy Questionnaire: Colonoscopy Questionnaire - Patient: 50 - 75 years old and never had a screening colonoscopy: Unknown History of colon or rectal polyps, or CA: Unknown History of IBD, Crohn's disease or UC: Unknown History of abdominal radiation therapy as a child: Unknown - Relative: 1 with colon or rectal CA, or polyps at age 60 or younger: Unknown Colon or rectal CA diagnosed at age 45 or younger: Unknown Multiple relatives with colon or rectal CA: Unknown - Outcome: Screening Result: Negative Screen
[2017-05-16] MEDS ORDERED: INSULIN (NOVOLOG) ASPART 100 UNITS/ML 10ML VIAL SQ ONE (04:49)
[2017-05-16] MEDS: INSULIN SLIDING SCALE (NOVOLOG) 1 VIAL SQ SCH ×4 (06:37→22:30)
[2017-05-16] MEDS: LEVOTHYROXINE NA 75 MCG TABLET (FP) PO SCH (06:37)
[2017-05-16] MEDS: CARBIDOPA/LEVODOPA 25/100 TABLET (FP) PO SCH ×3 (06:37→22:31)
[2017-05-16 07:18] LABS: BASO % 0.3 % (0-2.0); EOS % 0.7 % (0-4.5); HEMATOCRIT 31.5 % (32.4-45.2); HEMOGLOBIN 10.6 GM/dL (10.7-15.3); LYMPH % 27.8 % (8-40); MCH 28.7 pg (25.7-33.7); MCHC 33.7 g/dl (32.0-36.0); MEAN CELL VOLUME 85.2 fl (80-96); MEAN PLT VOLUME 7.6 fl (7.5-11.1); MONO % 7.2 % (3.8-10.2); PLATELET COUNT 201 K/MM3 (134-434); RDW 14.9 % (11.6-15.6); WHITE BLOOD COUNT 5.5 K/mm3 (4.0-10.0)
[2017-05-16 08:11] LABS: CHLORIDE 106 mmol/L (98-107); POTASSIUM 3.8 mmol/L (3.5-5.1); SODIUM 142 mmol/L (136-145)
[2017-05-16 08:18] LABS: ANION GAP 11 (8-16); BLOOD UREA NITROGEN 25 mg/dL (7-18); CALCIUM 8.6 mg/dL (8.5-10.1); CHOLESTEROL 195 mg/dL (50-200); CO2 25 mmol/L (21-32); CREATININE 2.2 mg/dL (0.55-1.02); GLUCOSE,RANDOM 182 mg/dL (74-106); HDL CHOLESTEROL 41 mg/dL (40-60); LDL CHOLESTEROL (ONLY SJRH) 127 mg/dL (5-100); TRIGLYCERIDES 178 mg/dL (35-160)
[2017-05-16 08:28] LABS: PHOSPHOROUS 2.9 mg/dL (2.5-4.9)
--- NOTE | 2017-05-16 08:51 | CON.CARD ---
Consult Consult Specialty:: cardiology Reason for Consultation:: palpitations; chest pain - History of Present Illness History of Present Illness: The patient is a 71 year old black female, with a significant past medical history of resting tremors, , factor VII blood deficiency,HTN DM, hypothyroidism , chronic renal disease (not on dialysis) early onset of Parkinson's disease, gout (right foot), moderate aortic regurgitation (2017 ECHO), who presents to the emergency department with sudden onset palpitations.. Patient reports going to bed in her usual state of health until palpitations woke her up from sleep. She got up to go to the bathroom, and the palpitations increased in rapidity, with mild shortness of breath. She had mild left shoulder kinfe-like pain as well. The discomfort lasted for about 20 minutes; it stopped about 5 miutews after receiving sl NTG and IV fluids. Patient also notes recent dyspnea on exertion for the past 2 months that is relieved at rest. Patient is followed up by Auditing Specialist (Dr. Osorio), and is scheduled for a stress test on 05/25. \\ She is sedentary; denies chest pain on exertion, but is easily short of breath. Denies personal hx of [place], but her sister had an [place] in her 60s, and paretns had heart problems in their 70s. 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 Cardio/Vascular: Yes: HTN Pulmonary: Yes: Asthma (denies attacks, but ?has pumps at home) Gastrointestinal: Yes: GERD Hepatobiliary: Yes: Cholecystitis (s/p cholecystectomy) Renal/: Yes: Renal Inusuff Reproductive: Yes: Postmenopausal ...: No Heme/Onc: Yes: Other (Factrof 5 deficiency) Psych: Yes: Anxiety Rheumatology: Yes: Gout Endocrine: Yes: Diabetes Mellitus - Alcohol/Substance Use Hx Alcohol Use: No History of Substance Use: reports: None - Smoking History Smoking history: Smoker current status UNK Have you smoked in the past 12 months: No Aproximately how many cigarettes per day: 0 If you are a former smoker, when did you quit?: 1981 - Social History ADL: Independent Home Medications - Allergies Allergies/Adverse Reactions: Allergies Allergy/AdvReac Type Severity Reaction Status Date / Time No Known Drug Allergies Allergy Verified 12/15/16 13:09 - Home Medications Home Medications: Ambulatory Orders Amlodipine Besylate [Norvasc -] 5 mg PO DAILY 07/26/15 Insulin Glargine,Hum.rec.anlog [Lantus (10mL VIAL) -] 50 units SQ HS 07/26/15 Insulin Lispro [Humalog] 20 unit SQ AC 07/26/15 Levothyroxine [Synthroid -] 75 mcg PO DAILY 07/26/15 Metoprolol Succinate [Toprol XL -] 50 mg PO DAILY 07/26/15 Omeprazole [Prilosec] 40 mg PO DAILY 07/26/15 Carbidopa/Levodopa [Carbidopa-Levodopa 25-100 Tab] 1 each PO TID 05/15/16 Linagliptin [Tradjenta] 5 mg PO DAILY 05/15/16 Family Disease History - Family Disease History Family Disease History: Heart Disease: Father ([place] in his 70s), Mother (?[place] in her 70s), Sister ([place] inher 60s) Review of Systems - Review of Systems Cardiovascular: reports: Chest Pain, Palpitations Respiratory: reports: SOB Musculoskeletal: reports: Joint Pain (right foot/ankle/toes: hx "gout") Neurological: reports: Tremors Psychiatric: reports: Anxiety - Risk Factors Known Risk Factors: Yes: Age, Diabetes Mellitus, Family History, Gender, Hypercholesterolemia, Hypertension, Physical Inactivity, Race Vital Signs: Vital Signs Temperature 97.9 F 05/16/17 03:00 Pulse Rate 84 05/16/17 03:00 Respiratory Rate 16 05/16/17 03:00 Blood Pressure 137/64 05/16/17 03:00 O2 Sat by Pulse Oximetry (%) 96 05/16/17 03:00 Constitutional: Yes: Well Nourished Eyes: Yes: WNL HENT: Yes: WNL Neck: Yes: WNL Respiratory: Yes: Regular Gastrointestinal: Yes: Soft Renal/: No: Anuria Cardiovascular: Yes: Regular Rate and Rhythm JVD: No Carotid Bruit: No PMI: Non-Displaced Heart Sounds: Yes: S1, S2 Murmur: Yes: Diastolic Murmur (2/4 diastolic, RSB-->base) Musculoskeletal: Yes: Joint Stiffness, Muscle Weakness Extremities: Yes: Cool Edema: No Peripheral Pulses WNL: Yes Neurological: Yes: Alert Psychiatric: Yes: Other (anxiety) - Other Data Labs, Other Data: CBC, BMP 05/16/17 06:27 05/16/17 06:27 INR, PTT INR 1.40 (0.82-1.09) H 05/16/17 01:25 Troponin, BNP 05/16/17 05/16/17 01:25 06:27 Troponin I 0.03 0.04 Troponin, BNP 05/16/17 05/16/17 01:25 06:27 Troponin I 0.03 0.04 Abnormal Lab Results 05/16/17 05/16/17 05/16/17 01:25 01:25 06:27 Hgb Hct PT with INR 15.80 H INR 1.40 H BUN 25 H 25 H Creatinine 2.4 H 2.2 H Random Glucose 445 H* 182 H Hemoglobin A1c % AST 13 L ALT 11 L Alkaline Phosphatase 154 H Albumin 2.8 L Triglycerides 178 H Total LDL Cholesterol 127 H TSH 05/16/17 05/16/17 05/16/17 06:27 06:27 06:27 Hgb 10.6 L Hct 31.5 L PT with INR INR BUN Creatinine Random Glucose Hemoglobin A1c % 8.4 H AST ALT Alkaline Phosphatase Albumin Triglycerides Total LDL Cholesterol TSH 27.90 H Echo: Report Reviewed (2017: normal LVEF; moderate AR) Imaging - Results EKG: Image Reviewed (NSR; LVH) Problem List - Problems (1) Aortic regurgitation Assessment/Plan: moderate by 11/2016 ECHO. Code(s): I35.1 - NONRHEUMATIC AORTIC (VALVE) INSUFFICIENCY (2) CKD (chronic kidney disease) Assessment/Plan: never on hemodialysis; f/u with cane cutter. Code(s): N18.9 - CHRONIC KIDNEY DISEASE, UNSPECIFIED (3) DM2 (diabetes mellitus, type 2) Assessment/Plan: the need to increase exercise, modify diet, and decrease weight was emphasized to her. 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 Code(s): I10 - ESSENTIAL (PRIMARY) HYPERTENSION Qualifiers: Hypertension type: essential hypertension Qualified Code(s): I10 - Essential (primary) hypertension (7) Palpitations Assessment/Plan: Being workup up for palpiations since last year, when she had an episode similar to the one that brought her to ER now. TNI 0.0--.0.03. EKG: no acute ST-T changes; telemetry: NSR: rare isolated PVCs. Pt is scheduled for stress MIBI in office next week; the chest pain is atypical , vague, and chronic, but now elicited ER visit. For stress MIBI today. Code(s): R00.2 - PALPITATIONS (8) Hyperlipidemia Assessment/Plan: Start atorvastatin; keep LDL < 70 mg/dL. Code(s): E78.5 - HYPERLIPIDEMIA, UNSPECIFIED (9) Overweight Code(s): E66.3 - OVERWEIGHT
[2017-05-16] MEDS ORDERED: amLODIPine BESYLATE 5 MG TABLET (FP) PO SCH (10:00)
[2017-05-16] MEDS ORDERED: ATORVASTATIN CA 20 MG TABLET (FP) PO ONE (10:10)
--- NOTE | 2017-05-16 12:17 | EKG ---
Test Reason : Blood Pressure : / mmHG Vent. Rate : 096 BPM Atrial Rate : 096 BPM P-R Int : 142 ms QRS Dur : 080 ms QT Int : 364 ms P-R-T Axes : 051 -26 075 degrees QTc Int : 459 ms NORMAL SINUS RHYTHM MINIMAL VOLTAGE CRITERIA FOR LVH, MAY BE NORMAL VARIANT BORDERLINE ECG WHEN COMPARED WITH ECG OF 15-DEC-2016 14:26, CRITERIA FOR ANTEROSEPTAL INFARCT ARE NO LONGER PRESENT NONSPECIFIC T WAVE ABNORMALITY NO LONGER EVIDENT IN INFERIOR LEADS Confirmed by MD ROD, LISA ([id number]) on 05/16/2017 12:16:45 PM Referred By: Confirmed By:LISA VELASCO MD
[2017-05-16] MEDS ORDERED: PT OWN MED DRAWER 7, Y5N ONE (12:21)
[2017-05-16] MEDS ORDERED: amLODIPine BESYLATE 5 MG TABLET (FP) ONE (13:23)
[2017-05-16] MEDS ORDERED: REGADENOSON 0.4 MG/5 ML PRE-FILLED SYRINGE IVPUSH ONE ×2 (13:29→14:30)
[2017-05-16] MEDS: metoPROLOL SUCCINATE 25 MG TAB.SR.24H (FP) PO SCH (14:59)
[2017-05-16] MEDS: PANTOPRAZOLE 40 MG TABLET (FP) PO SCH (14:59)
[2017-05-16] MEDS ORDERED: METOPROLOL TARTRATE 5 MG/5 ML VIAL ONE (16:50)
[2017-05-16] MEDS ORDERED: LABETALOL HCL 5 MG/1 ML (100MG/20 ML VIAL) IVPUSH ONE ×2 (17:17→20:45)
[2017-05-16] MEDS ORDERED: LABETALOL HCL 5 MG/1 ML (100MG/20 ML VIAL) ONE (17:18)
--- NOTE | 2017-05-16 17:46 | PN ---
Physical Exam: SUBJECTIVE: Patient seen and examined No acute events overnight. Patient's chest pain resolved after nitro in the EMS. Patient states she had a stress test many years ago, which was normal. Currently asymptomatic. Patient has a severe family history of [place] including sister's at the age of 40. Patient was originally scheduled for stress test on and was being worked up outpt by Dr. Osorio for palpitations. No prior caths. OBJECTIVE: Vital Signs Period Temp Pulse Resp BP Sys/Navas Pulse Ox Last 24 Hr 97.9 F-98.7 F 80-96 16-18 132-195/64-108 96-98 GENERAL: The patient is awake, alert, and fully oriented, in no acute distress. HEAD: Normal with no signs of trauma. EYES: PERRL, extraocular movements intact, sclera anicteric, conjunctiva clear. No ptosis. ENT: Oropharynx clear without exudates, moist mucous membranes. NECK: Trachea midline, full range of motion, supple. LUNGS: Breath sounds equal, clear to auscultation bilaterally, no wheezes, no crackles, no accessory muscle use. HEART: Regular rate and rhythm, S1, S2 without murmur, rub or gallop. ABDOMEN: Soft, nontender, nondistended, normoactive bowel sounds, no guarding, no rebound, no hepatosplenomegaly, no masses. EXTREMITIES: 2+ pulses, warm, well-perfused, no edema. NEUROLOGICAL: Cranial nerves II through XII grossly intact. Normal speech, gait not observed. 5/5 strength in b/l upper and lower extremities flexion and extension. Sensation intact b/l. 2+ reflexes b/l. PSYCH: Normal mood, normal affect. SKIN: Warm, dry, normal turgor, no rashes or lesions noted Laboratory Results - last 24 hr 05/16/17 05/16/17 05/16/17 01:25 01:25 01:25 WBC 6.0 RBC 3.83 Hgb 11.1 Hct 32.8 MCV 85.7 MCH 28.9 MCHC 33.7 RDW 15.1 Plt Count 210 MPV 8.0 Neutrophils % 68.0 Lymphocytes % 24.4 Monocytes % 6.8 Eosinophils % 0.5 Basophils % 0.3 PT with INR 15.80 H INR 1.40 H Sodium 137 Potassium 3.8 Chloride 102 Carbon Dioxide 21 Anion Gap 14 BUN 25 H Creatinine 2.4 H Creat Clearance w eGFR 19.96 POC Glucometer Random Glucose 445 H* Hemoglobin A1c % Calcium 9.0 Phosphorus Magnesium 2.1 Total Bilirubin 0.3 D AST 13 L ALT 11 L Alkaline Phosphatase 154 H Creatine Kinase 122 Troponin I 0.03 Total Protein 6.7 Albumin 2.8 L Triglycerides Cholesterol Total LDL Cholesterol HDL Cholesterol TSH 05/16/17 05/16/17 05/16/17 04:45 06:27 06:27 WBC RBC Hgb Hct MCV MCH MCHC RDW Plt Count MPV Neutrophils % Lymphocytes % Monocytes % Eosinophils % Basophils % PT with INR INR Sodium 142 Potassium 3.8 Chloride 106 Carbon Dioxide 25 Anion Gap 11 BUN 25 H Creatinine 2.2 H Creat Clearance w eGFR POC Glucometer 334 Random Glucose 182 H Hemoglobin A1c % Calcium 8.6 Phosphorus 2.9 Magnesium 2.0 Total Bilirubin AST ALT Alkaline Phosphatase Creatine Kinase 98 Troponin I 0.04 Total Protein Albumin Triglycerides 178 H Cholesterol 195 Total LDL Cholesterol 127 H HDL Cholesterol 41 TSH 27.90 H 05/16/17 05/16/17 05/16/17 06:27 06:27 06:36 WBC 5.5 RBC 3.70 Hgb 10.6 L Hct 31.5 L MCV 85.2 MCH 28.7 MCHC 33.7 RDW 14.9 Plt Count 201 MPV 7.6 Neutrophils % 64.0 Lymphocytes % 27.8 Monocytes % 7.2 Eosinophils % 0.7 Basophils % 0.3 PT with INR INR Sodium Potassium Chloride Carbon Dioxide Anion Gap BUN Creatinine Creat Clearance w eGFR POC Glucometer 137 Random Glucose Hemoglobin A1c % 8.4 H Calcium Phosphorus Magnesium Total Bilirubin AST ALT Alkaline Phosphatase Creatine Kinase Troponin I Total Protein Albumin Triglycerides Cholesterol Total LDL Cholesterol HDL Cholesterol TSH 05/16/17 05/16/17 08:48 17:28 WBC RBC Hgb Hct MCV MCH MCHC RDW Plt Count MPV Neutrophils % Lymphocytes % Monocytes % Eosinophils % Basophils % PT with INR INR Sodium Potassium Chloride Carbon Dioxide Anion Gap BUN Creatinine Creat Clearance w eGFR POC Glucometer 41 140 Random Glucose Hemoglobin A1c % Calcium Phosphorus Magnesium Total Bilirubin AST ALT Alkaline Phosphatase Creatine Kinase Troponin I Total Protein Albumin Triglycerides Cholesterol Total LDL Cholesterol HDL Cholesterol TSH Active Medications Generic Name Dose Route Start Last Admin Trade Name Freq PRN Reason Stop Dose Admin Amlodipine Besylate 5 mg 05/16/17 10:00 05/16/17 13:25 Norvasc - PO 5 mg DAILY RUBEN Administration Atorvastatin Calcium 20 mg 05/17/17 22:00 Lipitor - PO HS [facility] Carbidopa/Levodopa 1 each 05/16/17 06:00 05/16/17 14:59 Sinemet 25/100 - PO 1 each TID RUBEN Administration Insulin Aspart 1 vial 05/16/17 07:00 05/16/17 17:28 Novolog Vial Sliding Scale - SQ Not Given [facility] Protocol Levothyroxine Sodium 75 mcg 05/16/17 07:00 05/16/17 06:37 Synthroid - PO 75 mcg DAILY@0700 RUBEN Administration Metoprolol Succinate 25 mg 05/16/17 10:00 05/16/17 14:59 Toprol Xl - PO 25 mg DAILY RUBEN Administration Morphine Sulfate 2 mg 05/16/17 03:21 Morphine Injection - IVPUSH Q6H PRN PAIN LEVEL 6-10 Pantoprazole Sodium 40 mg 05/16/17 10:00 05/16/17 14:59 Protonix - PO 40 mg DAILY RUBEN Administration ASSESSMENT/PLAN: 71 year old F with pmh of resting tremor, factor 7 deficiency, HTN, DM, hypothyroidism, CKD (not on dialysis), early onset Parkinson's dz, who presented with palpitations and chest pressure #Chest pressure, r/o ACS. Likely unstable angina - Troponins negative x 2 - Asa refused given hemophilia - Metoprolol 25 mg po daily - Morphine 2 mg q6h prn - Stress test negative - Lipitor 20 mg po hs - Cardio consult- Dr. Allred #Hyperglycemia 2/2 poorly controlled DM -ISS -BGM ACHS -A1c-8.4 #Parkinsons -Controlled -continue carbidopa/levodopa 1 each TID #HTN- uncontrolled -Continue metoprolol 25mg PO qd -Continue amlodipine 5mg PO qd -1 dose labetolol 10 mg iv given. -monitor BP overnight #Hypothyroidism -Continue levothyroxine 75 mcg PO qd -TSH elevated, will f/u outpt #CKD -stable since last admission -monitor cr, avoid nephrotoxic medications #F/E/N -No IVF -Continue to monitor electrolytes -Diabetic/sodium diet #PPX DVT: SCD's GI: protonix 40 mg po daily #Dispo Continued montioring, if bp is stable in AM, can be d/c Visit type - Emergency Visit Emergency Visit: Yes ED Registration Date: 05/16/17 Care time: The patient presented to the Emergency Department on the above date and was hospitalized for further evaluation of their emergent condition. - New Patient This patient is new to me today: Yes Date on this admission: 05/16/17 - Critical Care Critical Care patient: No
--- NOTE | 2017-05-16 19:15 | PN ---
Teaching Attending Note Name of Resident: Houston Murguia ATTENDING PHYSICIAN STATEMENT I saw and evaluated the patient. I reviewed the resident's note and discussed the case with the resident. I agree with the resident's findings and plan as documented. SUBJECTIVE:seen this am no fever or chills , no cp at time of evaluation OBJECTIVE: NAd Cv : RRr, no JVD , + hepaojugular reflux Lungs ; CTAB abd: soft, NT, NL B S Ext: no edema ASSESSMENT AND PLAN: 71 y/o lady with h/o CKD , DM, factor VII def, HLD, hypohyriodism and other medical problems who presented with cp andpalpitaitons 1- CP: withher all risk factors, and family hx and dexcription of pain, and due to concern for Unstable angina , stress test ws don e results showed no ischemia cont tele for palpitations , had holter before f/u with dr. black as out pt 2- HTN urgency: reported not taking BB and norvasc as otu pt as her doctor took her ff them. will resume and repeat bp 3- HLP. LDL above goal . 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 dc IVf exp with+ hepatojugular reflux dispo : home when BP is controlled
[2017-05-17] MEDS: INSULIN SLIDING SCALE (NOVOLOG) 1 VIAL SQ SCH ×2 (06:32→11:41)
[2017-05-17] MEDS: LEVOTHYROXINE NA 75 MCG TABLET (FP) PO SCH (06:32)
[2017-05-17] MEDS: CARBIDOPA/LEVODOPA 25/100 TABLET (FP) PO SCH ×2 (06:32→13:42)
--- NOTE | 2017-05-17 08:37 | DS ---
Physical Exam: Selected Entries 05/16/17 05/16/17 05/16/17 15:04 17:00 21:00 Temperature Pulse Rate Blood Pressure 195/93 198/90 O2 Sat by Pulse 98 Oximetry (%) Oxygen Delivery Room Air Method 05/16/17 05/17/17 05/17/17 22:15 01:46 06:00 Temperature Pulse Rate Blood Pressure 193/88 161/66 156/51 O2 Sat by Pulse Oximetry (%) Oxygen Delivery Method 05/17/17 14:00 Temperature 97.3 F L Pulse Rate 71 Blood Pressure 137/73 O2 Sat by Pulse Oximetry (%) Oxygen Delivery Method Laboratory Tests 05/16/17 05/16/17 05/16/17 01:25 06:27 06:27 WBC Hgb Hct Plt Count BUN 25 H 25 H Creatinine 2.4 H 2.2 H Hemoglobin A1c % Troponin I 0.03 0.04 Triglycerides 178 H Cholesterol 195 Total LDL Cholesterol 127 H HDL Cholesterol 41 TSH 27.90 H Free T3 05/16/17 05/16/17 05/16/17 06:27 06:27 10:50 WBC 5.5 Hgb 10.6 L Hct 31.5 L Plt Count 201 BUN Creatinine Hemoglobin A1c % 8.4 H Troponin I Triglycerides Cholesterol Total LDL Cholesterol HDL Cholesterol TSH Free T3 2.1 05/16/17 19:00 WBC Hgb Hct Plt Count BUN Creatinine Hemoglobin A1c % Troponin I 0.03 Triglycerides Cholesterol Total LDL Cholesterol HDL Cholesterol TSH Free T3 CXR- No evidence of active pulmonary disease. Nuclear stress test- EXERCISE RESULTS: No stress-induced chest pain or ECG changes of ischemia during Regadenoson infusion NUCLEAR RESULTS: 1. Normal myocardial perfusion 2. Normal wall motion with low normal calculated left ventricular ejection fraction. HOSPITAL COURSE: Date of Admission:05/16/17 Date of Discharge: 05/17/17 71 year old F with pmh of DM, Parkinsons, CKD, HLD, Hypthyroidism, and factor 7 deficiency presented with palpitations and left sided chest pain. She received 0.4 mg of nitro x2 in the ER and relieved her pain. Patient underwent stress test during admission, which was normal. EF was 50% -- low normal. Patient also found to have a high TSH, which needs to be followed outpatient. In addition, she had hypertensive urgency with BP ~200/80. She was started on valsartan 160 mg daily, her norvasc was increased to 10 mg, and she will continue her toprol xl 25. Furthermore, Patient's Hba1c is 8.4. She takes Lantus 50 at night and short acting insulin before meals. Patient's lipid panel was performed (results above) and she was started on lipitor 20 mg po hs. She will need repeat lipid panel in 8 weeks. Minutes to complete discharge: 45 Discharge Summary Reason For Visit: CHEST PAIN CHRONIC KIDNEY DISEASE HTN Current Active Problems Chest pain (Acute) Palpitations (Acute) CKD (chronic kidney disease) (Chronic) DM2 (diabetes mellitus, type 2) (Chronic) HTN (hypertension) (Chronic) Hyperlipidemia (Chronic) Hypothyroidism (Chronic) Condition: Improved - Instructions Diet, Activity, Other Instructions: You were in the hospital for chest pain and palpitations. Your work up was negative for an acute cardiac event. You underwent a stress test, which was unremarkable. Medical Recommendations: 1. Continue your home medications 2. We have started you on atorvastatin 20 mg at night. Please continue this medication for high cholesterol. 3. Your thyroid function levels were low, please continue your thyroid medication and discuss with your primary care provider these findings, they may want more blood work to further investigate your thyroid levels. This is safe for you to do as an outpatient. 4- you need repeat Lipid panel in 8 weeks 5- We have increased your Norvasc to 10 mg daily. Take this for your blood pressure. Referrals: 1. Please follow up with your primary care provider within 1 week 2. Please follow up with cardiology within 1 week. *If you have chest pain, shortness of breath, or any new/worsening symptoms, please come back to the hospital immediately. Referrals: Isaac Cole [Primary Care Provider] - Montrell Osorio MD [Staff Physician] - 1 Week Padmini Womack MD [Staff Physician] - 1 Week Disposition: HOME - Home Medications Comprehensive Discharge Medication List: Ambulatory Orders Insulin Glargine,Hum.rec.anlog [Lantus (10mL VIAL) -] 50 units SQ HS 07/26/15 Insulin Lispro [Humalog] 10 unit SQ TID 07/26/15 Levothyroxine [Synthroid -] 100 mcg PO DAILY 07/26/15 Metoprolol Succinate [Toprol XL -] 50 mg PO DAILY 07/26/15 Omeprazole [Prilosec] 40 mg PO DAILY 07/26/15 Carbidopa/Levodopa [Carbidopa-Levodopa 25-100 Tab] 1 each PO TID 05/15/16 Linagliptin [Tradjenta] 5 mg PO DAILY 05/15/16 Atorvastatin Ca [Lipitor] 20 mg PO HS #30 tablet 05/16/17 Colchicine 0.6 mg PO DAILY 05/16/17 Furosemide 20 mg PO DAILY 05/16/17 Rivastigmine Tartrate [Exelon (Nf) -] 1.5 mg PO BID 05/16/17 Amlodipine Besylate [Norvasc -] 10 mg PO DAILY #30 tablet 05/17/17 This patient is new to me today: No Emergency Visit: Yes ED Registration Date: 05/16/17 Care time: The patient presented to the Emergency Department on the above date and was hospitalized for further evaluation of their emergent condition. Critical Care patient: No - Discharge Referral Referred to [facility] No
[2017-05-17] MEDS: metoPROLOL SUCCINATE 25 MG TAB.SR.24H (FP) PO SCH ×3 (08:52→10:42)
[2017-05-17] MEDS: PANTOPRAZOLE 40 MG TABLET (FP) PO SCH ×2 (08:52→09:35)
[2017-05-17] MEDS: amLODIPine BESYLATE 10 MG TABLET (FP) PO SCH ×2 (08:53→09:35)
[2017-05-17] MEDS ORDERED: metoPROLOL SUCCINATE 25 MG TAB.SR.24H (FP) PO SCH ×2 (10:39→10:58)
[2017-05-17] MEDS ORDERED: VALSARTAN 160 MG TABLET (UD) PO SCH (11:00)
--- NOTE | 2017-05-17 11:26 | PN ---
Progress Note, Physician History of Present Illness: The patient is a 71 year old black female, with a significant past medical history of resting tremors, , factor VII blood deficiency,HTN DM, hypothyroidism , chronic renal disease (not on dialysis) early onset of Parkinson's disease, gout (right foot), moderate aortic regurgitation (2017 ECHO), who presents to the emergency department with sudden onset palpitations.. Patient reports going to bed in her usual state of health until palpitations woke her up from sleep. She got up to go to the bathroom, and the palpitations increased in rapidity, with mild shortness of breath. She had mild left shoulder kinfe-like pain as well. The discomfort lasted for about 20 minutes; it stopped about 5 miutews after receiving sl NTG and IV fluids. Patient also notes recent dyspnea on exertion for the past 2 months that is relieved at rest. Patient is followed up by [employer] (Dr. Osorio), and is scheduled for a stress test on 05/25. \ She is sedentary; denies chest pain on exertion, but is easily short of breath. Denies personal hx of [place], but her sister had an [place] in her 60s, and paretns had heart problems in their 70s. - Current Medication List Current Medications: Active Medications Amlodipine Besylate (Norvasc -) 10 mg PO DAILY REPLACED BY [facility] Last Admin: 05/17/17 09:35 Dose: Not Given Atorvastatin Calcium (Lipitor -) 20 mg PO HS REPLACED BY [facility] Carbidopa/Levodopa (Sinemet 25/100 -) 1 each PO TID REPLACED BY [facility] Last Admin: 05/17/17 06:32 Dose: 1 each Insulin Aspart (Novolog Vial Sliding Scale -) 1 vial SQ ACHS REPLACED BY [facility] PRN Reason: Protocol Last Admin: 05/17/17 06:32 Dose: Not Given Levothyroxine Sodium (Synthroid -) 75 mcg PO DAILY@0700 REPLACED BY [facility] Last Admin: 05/17/17 06:32 Dose: 75 mcg Metoprolol Succinate (Toprol Xl -) 25 mg PO DAILY REPLACED BY [facility] Morphine Sulfate (Morphine Injection -) 2 mg IVPUSH Q6H PRN PRN Reason: PAIN LEVEL 6-10 Pantoprazole Sodium (Protonix -) 40 mg PO DAILY REPLACED BY [facility] Last Admin: 05/17/17 09:35 Dose: Not Given Valsartan (Diovan -) 160 mg PO DAILY RUBEN - Objective Vital Signs: Vital Signs Temperature 98.6 F 05/17/17 06:00 Pulse Rate 68 05/17/17 06:00 Respiratory Rate 20 05/17/17 06:00 Blood Pressure 156/51 05/17/17 06:00 O2 Sat by Pulse Oximetry (%) 98 05/16/17 21:00 Eyes: Yes: WNL, Conjunctiva Clear, EOM Intact HENT: Yes: WNL, Atraumatic, Normocephalic Neck: Yes: WNL, Supple, Trachea Midline Cardiovascular: Yes: WNL, Regular Rate and Rhythm Respiratory: Yes: WNL, Regular, CTA Bilaterally Gastrointestinal: Yes: WNL, Normal Bowel Sounds Genitourinary: Yes: WNL Musculoskeletal: Yes: WNL Extremities: Yes: WNL Edema: No Integumentary: Yes: WNL Neurological: Yes: WNL, Alert, Oriented ...Motor Strength: WNL Psychiatric: Yes: WNL Labs: CBC, BMP 05/16/17 06:27 05/16/17 06:27 INR, PTT INR 1.40 (0.82-1.09) H 05/16/17 01:25 Assessment/Plan - Problems (1) Aortic regurgitation Assessment/Plan: moderate by 11/2016 ECHO. 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 Code(s): N18.9 - CHRONIC KIDNEY DISEASE, UNSPECIFIED (3) DM2 (diabetes mellitus, type 2) Assessment/Plan: the need to increase exercise, modify diet, and decrease weight was emphasized to her. 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 Code(s): I10 - ESSENTIAL (PRIMARY) HYPERTENSION Qualifiers: Hypertension type: essential hypertension Qualified Code(s): I10 - Essential (primary) hypertension (7) Palpitations Assessment/Plan: Being workup up for palpiations since last year, when she had an episode similar to the one that brought her to ER now. TNI 0.0--.0.03. EKG: no acute ST-T changes; telemetry: NSR: rare isolated PVCs. Pt is scheduled for stress MIBI in office next week; the chest pain is atypical , vague, and chronic, but now elicited ER visit. For stress MIBI today. Code(s): R00.2 - PALPITATIONS (8) Hyperlipidemia Assessment/Plan: Start atorvastatin; keep LDL < 70 mg/dL. Code(s): E78.5 - HYPERLIPIDEMIA, UNSPECIFIED (9) Overweight Code(s): E66.3 - OVERWEIGHT
--- NOTE | 2017-05-17 15:32 | PN ---
Teaching Attending Note Name of Resident: Esteban Malik ATTENDING PHYSICIAN STATEMENT I saw and evaluated the patient. I reviewed the resident's note and discussed the case with the resident. I agree with the resident's findings and plan as documented. SUBJECTIVE: Patient is comfortable with no acute distress, No nausea or vomiting, no diarrhea , has no new complains. No Abdominal or chest pain. Continues to have elevated Blood pressure. No fever or chills. OBJECTIVE: Vital Signs Temperature 97.3 F L 05/17/17 14:00 Pulse Rate 71 05/17/17 14:00 Respiratory Rate 20 05/17/17 06:00 Blood Pressure 137/73 05/17/17 14:00 O2 Sat by Pulse Oximetry (%) 98 05/16/17 21:00 CBCD WBC 5.5 K/mm3 (4.0-10.0) 05/16/17 06:27 RBC 3.70 M/mm3 (3.60-5.2) 05/16/17 06:27 Hgb 10.6 GM/dL (10.7-15.3) L 05/16/17 06:27 Hct 31.5 % (32.4-45.2) L 05/16/17 06:27 MCV 85.2 fl (80-96) 05/16/17 06:27 MCHC 33.7 g/dl (32.0-36.0) 05/16/17 06:27 RDW 14.9 % (11.6-15.6) 05/16/17 06:27 Plt Count 201 K/MM3 (134-434) 05/16/17 06:27 MPV 7.6 fl (7.5-11.1) 05/16/17 06:27 CMP Sodium 142 mmol/L (136-145) 05/16/17 06:27 Potassium 3.8 mmol/L (3.5-5.1) 05/16/17 06:27 Chloride 106 mmol/L (98-107) 05/16/17 06:27 Carbon Dioxide 25 mmol/L (21-32) 05/16/17 06:27 Anion Gap 11 (8-16) 05/16/17 06:27 BUN 25 mg/dL (7-18) H 05/16/17 06:27 Creatinine 2.2 mg/dL (0.55-1.02) H 05/16/17 06:27 Creat Clearance w eGFR 19.96 (>60) 05/16/17 01:25 Random Glucose 182 mg/dL (74-106) H 05/16/17 06:27 Calcium 8.6 mg/dL (8.5-10.1) 05/16/17 06:27 Total Bilirubin 0.3 mg/dL (0.2-1.0) D 05/16/17 01:25 AST 13 U/L (15-37) L 05/16/17 01:25 ALT 11 U/L (12-78) L 05/16/17 01:25 Alkaline Phosphatase 154 U/L (45-117) H 05/16/17 01:25 Total Protein 6.7 g/dl (6.4-8.2) 05/16/17 01:25 Albumin 2.8 g/dl (3.4-5.0) L 05/16/17 01:25 CARDIAC ENZYMES Creatine Kinase 98 IU/L (26-192) 05/16/17 06:27 Troponin I 0.03 ng/ml (0.00-0.05) 05/16/17 19:00 Current Medications Generic Name Dose Route Start Last Admin Trade Name Freq PRN Reason Stop Dose Admin Amlodipine Besylate 10 mg 05/17/17 10:00 05/17/17 09:35 Norvasc - PO Not Given DAILY [facility] Atorvastatin Calcium 20 mg 05/17/17 22:00 Lipitor - PO HS [facility] Carbidopa/Levodopa 1 each 05/16/17 06:00 05/17/17 13:42 Sinemet 25/100 - PO 1 each TID [facility] Administration Insulin Aspart 1 vial 05/16/17 07:00 05/17/17 11:41 Novolog Vial Sliding Scale - SQ Not Given ACHS [facility] Protocol Levothyroxine Sodium 75 mcg 05/16/17 07:00 05/17/17 06:32 Synthroid - PO 75 mcg DAILY@0700 [facility] Administration Metoprolol Succinate 25 mg 05/17/17 10:58 Toprol Xl - PO DAILY [facility] Morphine Sulfate 2 mg 05/16/17 03:21 Morphine Injection - IVPUSH Q6H PRN PAIN LEVEL 6-10 Pantoprazole Sodium 40 mg 05/16/17 10:00 05/17/17 09:35 Protonix - PO Not Given DAILY [facility] Valsartan 160 mg 05/17/17 11:00 05/17/17 13:41 Diovan - PO 160 mg DAILY [facility] Administration Home Medications Medication Instructions Recorded Insulin Glargine,Hum.rec.anlog 50 units SQ HS 07/26/15 [Lantus (10mL VIAL) -] Insulin Lispro [Humalog] 10 unit SQ TID 07/26/15 Levothyroxine [Synthroid -] 100 mcg PO DAILY 07/26/15 Metoprolol Succinate [Toprol XL -] 50 mg PO DAILY 07/26/15 Omeprazole [Prilosec] 40 mg PO DAILY 07/26/15 Carbidopa/Levodopa 1 each PO TID 05/15/16 [Carbidopa-Levodopa 25-100 Tab] Linagliptin [Tradjenta] 5 mg PO DAILY 05/15/16 Atorvastatin Ca [Lipitor] 20 mg PO HS #30 tablet 05/16/17 Colchicine 0.6 mg PO DAILY 05/16/17 Furosemide 20 mg PO DAILY 05/16/17 Rivastigmine Tartrate [Exelon (Nf) 1.5 mg PO BID 05/16/17 -] Amlodipine Besylate [Norvasc -] 10 mg PO DAILY #30 tablet 05/17/17 Valsartan 160 mg PO DAILY #30 tablet 05/17/17 PE: Nice female, lying in bed with no acute distress, pleasant lady CHEST: CTA bl Heart: S1S2 positive , RRR. No murmur is appreciated. LE: No edema Neuro: AAOx3, NFD ASSESSMENT AND PLAN: Patient is a 71 y/o lady with h/o CKD , DM, factor VII def, HLD, hypothyriodism presented to ED. for having chest pain and palpitation. # Acute CP resolved , monitored on tele. stress test was negative for having no ischemia, had holter before f/u with dr. black as out pt. # HTN urgency:Patient's BP is better controlled today , added VALSARTAN TODAY 160MG PO DAILY AND HER RECHECK bp 148/70. continue her current regimen and will discharge the patient on Valsartan and norvasc that was added as inpatient stay. 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 # HLP. 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 Today 2.2 Discharge patient home today.
[2017-05-17 18:36] VITALS: PULSE 80
[2017-05-17 20:37] VITALS: BP 126/65; TEMP 98.3
[2017-05-17] MEDS ORDERED: ATORVASTATIN CA 20 MG TABLET (FP) PO SCH (22:00)
== END 2017-05-17 20:44 | disposition home or self-care (01) ==
LOC: JER 00:26 → JERBED 02:32 → J4W 03:39
PROVIDERS: ADMIT Internal Medicine; ATTEND Internal Medicine
PROC: 3E033GC Introduction of Other Therapeutic Substance into Peripheral Vein, Percutaneous Approach (ICD-10-PCS; principal; 2017-05-16)
PROC: 3E0337Z Introduction of Electrolytic and Water Balance Substance into Peripheral Vein, Percutaneous Approach (ICD-10-PCS; 2017-05-16)
PROC: 3E013VG Introduction of Insulin into Subcutaneous Tissue, Percutaneous Approach (ICD-10-PCS; 2017-05-16)
DX: R07.9 Chest pain, unspecified (principal); R00.2 Palpitations; I12.9 Hypertensive chronic kidney disease with stage 1 through stage 4 chronic kidney disease, or unspecified chronic kidney disease; I35.1 Nonrheumatic aortic (valve) insufficiency; E11.22 Type 2 diabetes mellitus with diabetic chronic kidney disease; E11.65 Type 2 diabetes mellitus with hyperglycemia; N18.9 Chronic kidney disease, unspecified; N17.9 Acute kidney failure, unspecified; D68.2 Hereditary deficiency of other clotting factors; G20 Parkinson's disease; K21.9 Gastro-esophageal reflux disease without esophagitis; K76.0 Fatty (change of) liver, not elsewhere classified; R25.1 Tremor, unspecified; E78.5 Hyperlipidemia, unspecified; E66.3 Overweight; Z68.30 Body mass index [BMI] 30.0-30.9, adult; Z79.4 Long term (current) use of insulin
CPT/HCPCS: 36415; 71045-TC-FY; 78452-TC; 80048; 80053; 80061; 82550; 82962; 83036; 83721; 83735; 84100; 84436; 84443; 84481; 84484; 85025; 85610; 93005; 93010; 93017; 96372; 96374; 96375; 96376; 99284-25; A9502; G0378; J2785; J7030

== ENCOUNTER 2017-08-19 23:31 | Inpatient (IN) | payer OTHER ==
--- NOTE | 2017-08-19 23:36 | PDOC ---
History of Present Illness - General Chief Complaint: Chest Pain Stated Complaint: CHEST PAIN Time Seen by Provider: 08/19/17 23:35 - History of Present Illness Initial Comments: 08/20/17 00:02 The patient is a 71 year old female with a history of HTN, HLD, DM who presents for evaluation of chest pain and palpitations. The patient reports onset of palpitation with associated chest tightness this evening prompting her presentation to the ED for further evaluation. She notes that her symptoms have greatly improved since presentation to the ED. She reports similar symptoms in the past with a negative stress test 3 months ago. She otherwise denies fevers, chills, SOB, cough, nausea, vomiting, abdominal pain, or changes with urination or bowel movements. Past History - Past Medical History Allergies/Adverse Reactions: Allergies Allergy/AdvReac Type Severity Reaction Status Date / Time No Known Drug Allergies Allergy Verified 08/19/17 23:34 Home Medications: Ambulatory Orders Insulin Glargine,Hum.rec.anlog [Lantus (10mL VIAL) -] 50 units SQ HS 07/26/15 Insulin Lispro [Humalog] 10 unit SQ TID 07/26/15 Levothyroxine [Synthroid -] 100 mcg PO DAILY 07/26/15 Metoprolol Succinate [Toprol XL -] 50 mg PO DAILY 07/26/15 Omeprazole [Prilosec] 40 mg PO DAILY 07/26/15 Carbidopa/Levodopa [Carbidopa-Levodopa 25-100 Tab] 1 each PO TID 05/15/16 Linagliptin [Tradjenta] 5 mg PO DAILY 05/15/16 Atorvastatin Ca [Lipitor] 20 mg PO HS #30 tablet 05/16/17 Colchicine 0.6 mg PO DAILY 05/16/17 Furosemide 20 mg PO DAILY 05/16/17 Rivastigmine Tartrate [Exelon (Nf) -] 1.5 mg PO BID 05/16/17 Amlodipine Besylate [Norvasc -] 10 mg PO DAILY #30 tablet 05/17/17 Valsartan 160 mg PO DAILY #30 tablet 05/17/17 Anemia: No Asthma: No Cancer: No Cardiac Disorders: Yes (RAPID HEART BEAT AT TIMES) CVA: No COPD: No CHF: No Dementia: No Diabetes: Yes GI Disorders: Yes (ACID REFLUX) Disorders: No HTN: Yes Hypercholesterolemia: Yes Liver Disease: Yes (fatty liver) Seizures: No Thyroid Disease: Yes (HYPOACTIVE) - Surgical History Abdominal Surgery: Yes (ventral HERNIA 2009, 2013) Appendectomy: Yes (2006) Cardiac Surgery: No Cholecystectomy: Yes Lung Surgery: No Neurologic Surgery: No Orthopedic Surgery: No - Immunization History Immunization Up to Date: Yes - Suicide/Smoking/Psychosocial Hx Smoking Status: Yes Smoking History: Never smoked Have you smoked in the past 12 months: No Number of Cigarettes Smoked Daily: 0 If you are a former smoker, when did you quit?: 1982 Information on smoking cessation initiated: No Hx Alcohol Use: No Drug/Substance Use Hx: No Substance Use Type: Alcohol Hx Substance Use Treatment: No Review of Systems - Review of Systems Comments:: 08/20/17 00:04 Constitutional: No fevers, chills, fatigue, malaise HEENT: No Rhinorrhea, nasal congestion, visual changes Cardiovascular: Chest tightness, Palpitations. No syncope, lightheadedness Respiratory: No Cough, SOB, Hemoptysis, Gastrointestinal: No Abdominal pain, Nausea, Vomiting, Constipation, Diarrhea, Melena Genitourinary: No Dysuria, Frequency, Urgency, Hesitancy, Hematuria, Flank pain Musculoskeletal: No Myalgia, arthralgia Skin: No rashes, itching, bruising, pallor Neurologic: No Headache, Dizziness, Numbness, Weakness, or Tingling Psychiatric: No Hallucinations. No SI or HI *Physical Exam - Vital Signs Last Vital Signs Temp Pulse Resp BP Pulse Ox 98.2 F 92 H 18 213/92 98 08/19/17 23:34 08/19/17 23:34 08/19/17 23:34 08/19/17 23:34 08/19/17 23:34 - Physical Exam Comments: 08/20/17 00:05 General Appearance: Nourished. No Apparent Distress HEENT: EOMI, SUMA. No Pharyngeal Erythema, Tonsillar Exudate, Tonsillar Erythema Neck: No Cervical Lymphadenopathy Respiratory/Chest: Lungs Clear, Normal Breath Sounds. No Crackles, Rales, Rhonchi, Wheezing Cardiovascular: Regular Rhythm, Regular Rate. No Murmur, Gallops, Rubs Gastrointestinal/Abdominal: Normal Bowel Sounds, Soft. No Guarding, Rebound, Tenderness Musculoskeletal: No CVA Tenderness Extremity: Normal Capillary Refill Integumentary: Normal Color, Dry, Warm Neurologic: Fully Oriented, Alert, Normal Mood/Affect, Normal Response, ED Treatment Course - LABORATORY CBC & Chemistry Diagram: 08/20/17 02:02 08/20/17 02:02 Medical Decision Making - Medical Decision Making 08/20/17 00:05 The patient is a 71 year old female with a history of HTN, HLD, DM who presents for evaluation of chest pain and palpitations. Differential includes but is not limited to: ACS, Arrhythmia, Pneumonia, Infectious, Metabolic Derangement. Given the patient's history and physical exam, we will obtain a cbc, cmp, troponin, tsh, EKG, chest plain film to evaluate further for possible etiologies. We will continue to monitor and reassess while here in the ED. 08/20/17 04:18 CBC is unremarkable. CMP demonstrates an elevated creatinine to 2.6. Troponin is elevated to 0.12. The patient is comfortable on exam, but continues to remain hypertension. The patient received 20mg of labetolol here in the ED. We discussed the case with Dr. Pratt with the hospitalist team who request ICU admission and for the patient to be placed on a labetolol drip. We have contacted the ICU and are awaiting call back. *DC/Admit/Observation/Transfer Diagnosis at time of Disposition: Elevated troponin, Hypertensive urgency Chest pain Qualifiers: Chest pain type: unspecified Qualified Code(s): R07.9 - Chest pain, unspecified - Discharge Dispostion Condition at time of disposition: Stable Decision to Admit order: Yes - Referrals Referrals: Isaac Cole [Primary Care Provider] - - Patient Instructions - Post Discharge Activity
--- NOTE | 2017-08-19 23:36 | PDOC ---
Attending Attestation - HPI HPI: 08/20/17 01:25 Pt is a 71 yo F with a PMHx of HTN, HLD, DM who presents to the ED with chest pain today. Patient reports sudden onset of chest tightness when laying in bed tonight. Patient describes pain as tightness across her chest, 6/10 in severity , radiating in to L shoulder associated with palpitations. Patient reports pain lasted for 5 minutes and later resolved. Patient denies any pain in the ED and presents for further evaluation. PCP: Dr. Isaac Cole - Physicial Exam PE: 08/20/17 01:25 GENERAL: The patient is in no acute distress. HEAD: Normal with no signs of trauma. EYES: PERRLA, EOMI, sclera anicteric, conjunctiva clear. ENT: Ears normal, nares patent, oropharynx clear without exudates. Moist mucous membranes. NECK: Normal range of motion, supple without lymphadenopathy, JVD, or masses. LUNGS: Breath sounds equal, clear to auscultation bilaterally. No wheezes, and no crackles. HEART:Regular rate and rhythm, normal S1 and S2 without murmur, rub or gallop. ABDOMEN: Soft, nontender, normoactive bowel sounds. No guarding, no rebound. EXTREMITIES: Normal range of motion, no edema. No clubbing or cyanosis. No erythema, or tenderness. NEUROLOGICAL: Cranial nerves II through XII grossly intact. Normal speech. No focal neurological deficits. MUSCULOSKELETAL: Back nontender to palpation, no CVA tenderness SKIN: Warm, Dry, normal turgor, no rashes or lesions noted. - Medical Decision Making 08/20/17 01:25 Documentation prepared by Anabel Martínez, acting as biomedical repair technician for Sheila Levin MD <Anabel Martínez - Last Filed: 08/20/17 01:25> - Resident Resident Name: Mauricio Marrero - ED Attending Attestation I have performed the following: I have examined & evaluated the patient, The case was reviewed & discussed with the resident, I agree w/resident's findings & plan, Exceptions are as noted - Physicial Exam PE: - Medical Decision Making 08/21/17 00:31 Ms Vance presents with a complaint of angina at rest which self resolved after approximately 30 minutes Laboratory Tests 08/20/17 08/20/17 02:02 02:02 WBC 6.4 Hgb 11.3 Hct 34.1 Plt Count 216 BUN 35 H Creatinine 2.6 H Troponin I 0.12 H Pt noted to be quite hypertensive Labetolol ordered Pt admitted to hospitalist service Clinical Impression: hypertension, initial presentation ACS, initial presentation <Sheila Levin - Last Filed: 08/21/17 00:33>
[2017-08-20 02:37] LABS: BASO % 1.1 % (0-2.0); EOS % 0.5 % (0-4.5); HEMATOCRIT 34.1 % (32.4-45.2); HEMOGLOBIN 11.3 GM/dL (10.7-15.3); LYMPH % 25.6 % (8-40); MCHC 33.2 g/dl (32.0-36.0); MEAN CELL VOLUME 84.2 fl (80-96); MEAN PLT VOLUME 7.7 fl (7.5-11.1); MONO % 8.4 % (3.8-10.2); NEUT % 64.4 % (42.8-82.8); PLATELET COUNT 216 K/MM3 (134-434); RBC 4.06 M/mm3 (3.60-5.2); RDW 15.5 % (11.6-15.6); WHITE BLOOD COUNT 6.4 K/mm3 (4.0-10.0)
[2017-08-20] MEDS ORDERED: LABETALOL HCL 5 MG/1 ML (100MG/20 ML VIAL) IVPUSH ONE (02:59)
[2017-08-20 03:17] LABS: ANION GAP 7 (8-16); BLOOD UREA NITROGEN 35 mg/dL (7-18); CALCIUM 9.2 mg/dL (8.5-10.1); CHLORIDE 107 mmol/L (98-107); CO2 26 mmol/L (21-32); CREATININE 2.6 mg/dL (0.55-1.02); SGOT/AST 17 U/L (15-37); SGPT/ALT 17 U/L (12-78); SODIUM 140 mmol/L (136-145)
[2017-08-20 03:27] LABS: ALK PHOS 183 U/L (45-117); BILIRUBIN,TOTAL 0.2 mg/dL (0.2-1.0); TOT PROT 6.9 g/dl (6.4-8.2)
[2017-08-20 03:28] LABS: GLUCOSE,RANDOM 308 mg/dL (74-106)
[2017-08-20] MEDS ORDERED: LABETALOL HCL 5 MG/1 ML (200MG/40ML VIAL) IVPB ONE (04:09)
[2017-08-20] MEDS ORDERED: LABETALOL HCL INJECTION 1,000 MG in SODIUM CHLORIDE 800 ML IV SCH (04:15)
--- NOTE | 2017-08-20 05:00 | HP ---
CHIEF COMPLAINT: chest pain PCP: none HISTORY OF PRESENT ILLNESS: 71 yo F with a PMHx of HTN, HLD, DM who presents to the ED with chest pain today. Pain was in her L side of chest, sudden in onset, lasted for 10min , got better itself, radiated to l shoulder, Not associated with sob, palpitations, dizziness, change in vision, headache. Denies nausea, vomiting and diaphoresis. 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 Smoking: no Alcohol: social drinker Drugs: denies Family History: not relevent Allergies No Known Drug Allergies Allergy (Verified 08/19/17 23:34) HOME MEDICATIONS: Home Medications Medication Instructions Recorded Insulin Glargine,Hum.rec.anlog 50 units SQ HS 07/26/15 [Lantus (10mL VIAL) -] Insulin Lispro [Humalog] 10 unit SQ TID 07/26/15 Levothyroxine [Synthroid -] 100 mcg PO DAILY 07/26/15 Metoprolol Succinate [Toprol XL -] 50 mg PO DAILY 07/26/15 Omeprazole [Prilosec] 40 mg PO DAILY 07/26/15 Carbidopa/Levodopa 1 each PO TID 05/15/16 [Carbidopa-Levodopa 25-100 Tab] Linagliptin [Tradjenta] 5 mg PO DAILY 05/15/16 Atorvastatin Ca [Lipitor] 20 mg PO HS #30 tablet 05/16/17 Colchicine 0.6 mg PO DAILY 05/16/17 Furosemide 20 mg PO DAILY 05/16/17 Rivastigmine Tartrate [Exelon (Nf) 1.5 mg PO BID 05/16/17 -] Amlodipine Besylate [Norvasc -] 10 mg PO DAILY #30 tablet 05/17/17 Valsartan 160 mg PO DAILY #30 tablet 05/17/17 REVIEW OF SYSTEMS CONSTITUTIONAL: Absent: fever, chills, diaphoresis, generalized weakness, malaise, loss of appetite, weight change HEENT: Absent: rhinorrhea, nasal congestion, CARDIOVASCULAR: chest pain RESPIRATORY: Absent: cough, shortness of breath, dyspnea with exertion, orthopnea, wheezing, stridor, hemoptysis GASTROINTESTINAL: Absent: abdominal pain, abdominal distension, nausea, vomiting, diarrhea, constipation, GENITOURINARY: Absent: dysuria, frequency, urgency, hesitancy, MUSCULOSKELETAL: Absent: myalgia, arthralgia, joint swelling, back pain, neck pain SKIN: Absent: rash, itching, pallor HEMATOLOGIC/IMMUNOLOGIC: Absent: easy bleeding, easy bruising, l ENDOCRINE: Absent: unexplained weight gain, unexplained weight loss, NEUROLOGIC: Absent: headache, focal weakness or paresthesias PSYCHIATRIC: Absent: anxiety, depression, PHYSICAL EXAMINATION Vital Signs - 24 hr 08/19/17 08/20/17 08/20/17 23:34 02:41 04:58 Temperature 98.2 F 97.8 F Pulse Rate 92 H Pulse Rate [ 84 71 Apical] Respiratory Rate Blood Pressure 213/92 Blood Pressure 227/84 182/75 [Left Arm] O2 Sat by Pulse 98 100 99 Oximetry (%) GENERAL: Awake, alert, and fully oriented, in no acute distress. HEAD: Normal with no signs of trauma. EYES: b/l pappilodema + EARS, NOSE, THROAT: moist mucous membranes. NECK: Normal range of motion, supple without lymphadenopathy, JVD, or masses. LUNGS: Breath sounds equal, clear to auscultation bilaterally. No wheezes, and no crackles. No accessory muscle use. HEART: Regular rate and rhythm, normal S1 and S2 without murmur, rub or gallop. ABDOMEN: Soft, nontender, not distended, normoactive bowel sounds, no guarding, no rebound, no masses. MUSCULOSKELETAL: Normal range of motion at all joints. No bony deformities or tenderness. UPPER EXTREMITIES: 2+ pulses, warm, well-perfused. No cyanosis. No clubbing. No peripheral edema. LOWER EXTREMITIES: 2+ pulses, warm, well-perfused. No calf tenderness. peripheral edema 1+ NEUROLOGICAL: Cranial nerves II-XII intact. Normal speech. PSYCHIATRIC: Cooperative. Good eye contact. SKIN: Warm, dry, Laboratory Results - last 24 hr 08/20/17 08/20/17 02:02 02:02 WBC 6.4 RBC 4.06 Hgb 11.3 Hct 34.1 MCV 84.2 MCH 28.0 MCHC 33.2 RDW 15.5 Plt Count 216 MPV 7.7 Absolute Neuts (auto) 4.1 Neutrophils % 64.4 Lymphocytes % 25.6 Monocytes % 8.4 Eosinophils % 0.5 Basophils % 1.1 D Nucleated RBC % 0 Sodium 140 Potassium 4.0 Chloride 107 Carbon Dioxide 26 Anion Gap 7 L BUN 35 H Creatinine 2.6 H Creat Clearance w eGFR 18.20 Random Glucose 308 H* Calcium 9.2 Total Bilirubin 0.2 D AST 17 ALT 17 Alkaline Phosphatase 183 H Creatine Kinase 143 Troponin I 0.12 H Total Protein 6.9 Albumin 3.0 L TSH 7.72 H ASSESSMENT/PLAN: #Hypertension emergency with troponemia with L side chest pain r/o acs -HEART score 4- moderate -First trop 0.12, follow second -started on aspirin 81mg - continue with atorvastatin - cardiac monitoring - repeat ekg in am - on labetalol drip - echo -Cardio consult- Dr. Allred # DM -ISS -BGM ACHS -add lantus in PM if eating -follow A1c #Hypothyroidism -Continue levothyroxine 100 mcg PO qd -TSH 7.72 #YASIR superimposed on CKD -Pt baseline ~2.2 -F/u urine lytes -renal and bladder scan # HLd continue home meds #F/E/N orally allowed Continue to monitor electrolytes salt controlled diet #PPX DVT: SCD's #Dispo icu. Visit type - Emergency Visit Emergency Visit: Yes ED Registration Date: 08/20/17 Care time: The patient presented to the Emergency Department on the above date and was hospitalized for further evaluation of their emergent condition. - New Patient This patient is new to me today: Yes Date on this admission: 08/20/17 - Critical Care Critical Care patient: Yes Total Critical Care Time (in minutes): 45 Critical Care Statement: The care of this patient involved high complexity decision making to prevent further life threatening deterioration of the patient 's condition and/or to evaluate & treat vital organ system(s) failure or risk of failure.
[2017-08-20] MEDS: CARBIDOPA/LEVODOPA 25/100 TABLET (FP) PO SCH ×3 (06:09→21:50)
[2017-08-20] MEDS: INSULIN SLIDING SCALE (NOVOLOG) 1 VIAL SQ SCH ×4 (06:10→21:51)
[2017-08-20] MEDS ORDERED: LEVOTHYROXINE NA 25 MCG TABLET (FP) ONE (06:15)
[2017-08-20] MEDS ORDERED: CARBIDOPA/LEVODOPA 25/100 TABLET (FP) ONE (06:16)
[2017-08-20] MEDS ORDERED: INSULIN (NOVOLOG) ASPART 100 UNITS/ML 10ML VIAL ONE ×2 (06:18→06:47)
[2017-08-20] MEDS ORDERED: LEVOTHYROXINE NA 100 MCG TABLET (FP) PO SCH (07:00)
--- NOTE | 2017-08-20 08:04 | PN ---
Teaching Attending Note Name of Resident: Edgardo Zapata ATTENDING PHYSICIAN STATEMENT I saw and evaluated the patient. Chart , data, reviewed. I reviewed the resident's note and discussed the case with the resident. I agree with the resident's findings and plan as documented. SUBJECTIVE: 71 yo F with a PMHx of HTN, HLD, DM c/o chest tightness x1 day Patient reports sudden onset of chest tightness when laying in bed. Patient describes pain as tightness across her chest, 6/10 in severity, radiating in to L shoulder associated with palpitations. FOund to have elevated BP in ER, + trop and creatinine. No EKG ischemic changes. Given IV labetolol IVP in ER and started on labetolol drip. OBJECTIVE: Last Vital Signs Temp Pulse Resp BP Pulse Ox 98.7 F 75 17 164/79 98 08/20/17 07:15 08/20/17 07:15 08/20/17 07:15 08/20/17 07:15 08/20/17 07:15 general -nad, comfortable heent - moist oral mucosa neck -supple cv -s1+s2+rrr chest - clear abdomen -soft , bs+ ext - 2+ pedal edema b/l Abnormal Lab Results 08/20/17 02:02 Anion Gap 7 L BUN 35 H Creatinine 2.6 H Random Glucose 308 H* Alkaline Phosphatase 183 H Troponin I 0.12 H Albumin 3.0 L TSH 7.72 H EKG -no ischemic changes CXR- reviewed ASSESSMENT AND PLAN: #Hypertensive emergency with signs of end organ damage - william on ckd and tropinemia. Doubt actual acs. -admit to ICU -labtolol drip -titrate according to BP change -trend trop -repeat ekg -cardiology consult -no head ct at this time as normal neuro exam and no headaches -bp med optimization -2g na diet -transthoracic echo -ASA -statin #WILLIAM on ckd -due to severe htn -decrease bp -renal u/s -avoid nephrotoxins heparin sc for dvt ppx -see resident note for details
--- NOTE | 2017-08-20 08:55 | EKG ---
Test Reason : Blood Pressure : / mmHG Vent. Rate : 082 BPM Atrial Rate : 082 BPM P-R Int : 138 ms QRS Dur : 086 ms QT Int : 398 ms P-R-T Axes : 011 -16 069 degrees QTc Int : 464 ms NORMAL SINUS RHYTHM MODERATE VOLTAGE CRITERIA FOR LVH, MAY BE NORMAL VARIANT BORDERLINE ECG WHEN COMPARED WITH ECG OF 16-MAY-2017 00:41, NO SIGNIFICANT CHANGE WAS FOUND Confirmed by AMILCAR MORALES, ROSELINE ([id number]) on 08/20/2017 8:55:06 AM Referred By: Confirmed By:ROSELINE FITZGERALD MD
--- NOTE | 2017-08-20 09:16 | PN ---
Progress Note (short form) - Note Progress Note: Subjective: No fever or chills, no Abd pain , NO SOB no CP . Objective: Vital Signs: Last Vital Signs Temp Pulse Resp BP Pulse Ox 98.7 F 88 22 160/81 98 08/20/17 07:15 08/20/17 09:08 08/20/17 09:08 08/20/17 09:08 08/20/17 07:15 Last Vital Signs Temp Pulse Resp BP Pulse Ox 98.7 F 88 22 160/81 98 08/20/17 07:15 08/20/17 09:08 08/20/17 09:08 08/20/17 09:08 08/20/17 07:15 Laboratory Results - last 24 hr 08/20/17 08/20/17 08/20/17 02:02 02:02 05:55 WBC 6.4 RBC 4.06 Hgb 11.3 Hct 34.1 MCV 84.2 MCH 28.0 MCHC 33.2 RDW 15.5 Plt Count 216 MPV 7.7 Absolute Neuts (auto) 4.1 Neutrophils % 64.4 Lymphocytes % 25.6 Monocytes % 8.4 Eosinophils % 0.5 Basophils % 1.1 D Nucleated RBC % 0 Sodium 140 Potassium 4.0 Chloride 107 Carbon Dioxide 26 Anion Gap 7 L BUN 35 H Creatinine 2.6 H Creat Clearance w eGFR 18.20 POC Glucometer [phone] Random Glucose 308 H* Calcium 9.2 Total Bilirubin 0.2 D AST 17 ALT 17 Alkaline Phosphatase 183 H Creatine Kinase 143 Troponin I 0.12 H Total Protein 6.9 Albumin 3.0 L TSH 7.72 H Ur Random Sodium Ur Random Potassium Ur Random Chloride 08/20/17 08/20/17 06:06 08:40 WBC RBC Hgb Hct MCV MCH MCHC RDW Plt Count MPV Absolute Neuts (auto) Neutrophils % Lymphocytes % Monocytes % Eosinophils % Basophils % Nucleated RBC % Sodium Potassium Chloride Carbon Dioxide Anion Gap BUN Creatinine Creat Clearance w eGFR POC Glucometer [phone] Random Glucose Calcium Total Bilirubin AST ALT Alkaline Phosphatase Creatine Kinase Troponin I Total Protein Albumin TSH Ur Random Sodium 58 Ur Random Potassium 22.5 Ur Random Chloride 53 Physical Exam: NAd , mmm, no facial droop. CV: RRR, no MRG , no jvd Lungs: CTAB ext: 1+ edema abd : soft, NT, ND , NL BS, no hepato jugular reflux Assessment/Plan: 71 y/o lady with h/o DM , hypothyroidism, HTn, CKD , HLP, factor VII def, and other medical problems who presented with CP and was found to have Hypertensive emergency 1- Hypertensive emergency ) YASIR , and demand ischemia . due to non compliance .BP improved 20 % in 6 hours. SBP 161 now. - stop labetalol gtt. - start valsartan and norvasc ( not on BB any more ) - if renal function worsens will hold ARB - monitor closley 2- Demand iaschemia : EKG with no ischemic changes . No cp now - follow trop 3- YASIR o n CKD : BL cr 2.2 . - hold lasix for today - monitor renal function while on ARB 4-DM: takes 30-50 unit of LAntus in HS depending on her sugar. and SSI AC - start levemir 30 u HS - SSI AC 5- hypothyroidism . synthroid . TSH 7.4 , but will repeat in 2 weeks ICU level of care. if BP remains stable , can transfer out Visit type - Emergency Visit Emergency Visit: Yes ED Registration Date: 08/20/17 Care time: The patient presented to the Emergency Department on the above date and was hospitalized for further evaluation of their emergent condition. - New Patient This patient is new to me today: Yes Date on this admission: 08/20/17 - Critical Care Critical Care patient: Yes Total Critical Care Time (in minutes): 35 Critical Care Statement: The care of this patient involved high complexity decision making to prevent further life threatening deterioration of the patient 's condition and/or to evaluate & treat vital organ system(s) failure or risk of failure.
--- NOTE | 2017-08-20 09:25 | CON.CARD ---
Consult Consult Specialty:: Cardiology - History of Present Illness Chief Complaint: cp History of Present Illness: 71 yo F with a PMHx of HTN, HLD, DM who presents to the ED with chest pain today. Pain was in her L side of chest, sudden in onset, lasted for 10min , got better itself, radiated to l shoulder, Not associated with sob, palpitations, dizziness, change in vision, headache. Denies nausea, vomiting and diaphoresis. In ED bryn was found to have HTN emergancy with troponemia and william bp 227/84 PMH parkinson's disease chronic renal insufficiency. baseline creatinine level 2 chest pain palpitations diabetes hypertension factor 7 deficiency - no DAPT as per recent hem consult / RED heart murmur mild left carotid bruit morbid obesity Non-compliance with medical treatment. positive MIBI ST for lateral ischemia - awaiting. c. 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 Cardio/Vascular: Yes: HTN Pulmonary: Yes: Asthma (denies attacks, but ?has pumps at home) Gastrointestinal: Yes: GERD Hepatobiliary: Yes: Cholecystitis (s/p cholecystectomy) Renal/: Yes: Renal Inusuff Psych: Yes: Anxiety Rheumatology: Yes: Gout Endocrine: Yes: Diabetes Mellitus - Alcohol/Substance Use Hx Alcohol Use: No History of Substance Use: reports: None - Smoking History Smoking history: Never smoked Have you smoked in the past 12 months: No Aproximately how many cigarettes per day: 0 If you are a former smoker, when did you quit?: 1981 - Social History ADL: Independent Home Medications - Allergies Allergies/Adverse Reactions: Allergies Allergy/AdvReac Type Severity Reaction Status Date / Time No Known Drug Allergies Allergy Verified 08/19/17 23:34 - Home Medications Home Medications: Ambulatory Orders Insulin Glargine,Hum.rec.anlog [Lantus (10mL VIAL) -] 50 units SQ HS 07/26/15 Insulin Lispro [Humalog] 10 unit SQ TID 07/26/15 Levothyroxine [Synthroid -] 100 mcg PO DAILY 07/26/15 Metoprolol Succinate [Toprol XL -] 50 mg PO DAILY 07/26/15 Omeprazole [Prilosec] 40 mg PO DAILY 07/26/15 Carbidopa/Levodopa [Carbidopa-Levodopa 25-100 Tab] 1 each PO TID 05/15/16 Linagliptin [Tradjenta] 5 mg PO DAILY 05/15/16 Atorvastatin Ca [Lipitor] 20 mg PO HS #30 tablet 05/16/17 Colchicine 0.6 mg PO DAILY 05/16/17 Furosemide 20 mg PO DAILY 05/16/17 Rivastigmine Tartrate [Exelon (Nf) -] 1.5 mg PO BID 05/16/17 Amlodipine Besylate [Norvasc -] 10 mg PO DAILY #30 tablet 05/17/17 Valsartan 160 mg PO DAILY #30 tablet 05/17/17 Family Disease History - Family Disease History Family Disease History: Heart Disease: Father ([place] in his 70s), Mother (?[place] in her 70s), Sister ([place] inher 60s) Review of Systems - Review of Systems Constitutional: reports: No Symptoms Eyes: reports: No Symptoms HENT: reports: No Symptoms Neck: reports: No Symptoms Cardiovascular: reports: Chest Pain Respiratory: reports: No Symptoms Gastrointestinal: reports: No Symptoms Genitourinary: reports: No Symptoms Breasts: reports: No Symptoms Reported Musculoskeletal: reports: No Symptoms Integumentary: reports: No Symptoms Neurological: reports: No Symptoms Endocrine: reports: No Symptoms Hematology/Lymphatic: reports: No Symptoms Psychiatric: reports: No Symptoms Vital Signs: Vital Signs Temperature 98.7 F 08/20/17 07:15 Pulse Rate 88 08/20/17 09:08 Respiratory Rate 22 08/20/17 09:08 Blood Pressure 160/81 08/20/17 09:08 O2 Sat by Pulse Oximetry (%) 98 08/20/17 07:15 Constitutional: Yes: Well Nourished, No Distress, Calm Eyes: Yes: WNL, Conjunctiva Clear, EOM Intact HENT: Yes: WNL, Atraumatic, Normocephalic Neck: Yes: WNL, Supple, Trachea Midline Respiratory: Yes: WNL, Regular, CTA Bilaterally Gastrointestinal: Yes: WNL, Normal Bowel Sounds Renal/: Yes: WNL Cardiovascular: Yes: WNL, Regular Rate and Rhythm Heart Sounds: Yes: S1, S2 Murmur: Yes: Systolic Murmur Musculoskeletal: Yes: WNL Extremities: Yes: WNL Integumentary: Yes: WNL Neurological: Yes: WNL, Alert, Oriented ...Motor Strength: WNL Psychiatric: Yes: WNL, Alert, Oriented - Other Data Labs, Other Data: Troponin, BNP 08/20/17 02:02 Troponin I 0.12 H Troponin, BNP 08/20/17 02:02 Troponin I 0.12 H Imaging - Results Chest X-ray: Image Reviewed (no i/e) EKG: Image Reviewed (sr wnl) Problem List - Problems (1) Chest pain Code(s): R07.9 - CHEST PAIN, UNSPECIFIED Qualifiers: Chest pain type: unspecified Qualified Code(s): R07.9 - Chest pain, unspecified (2) Elevated troponin Code(s): R74.8 - ABNORMAL LEVELS OF OTHER SERUM ENZYMES (3) Hypertensive urgency Code(s): I16.0 - HYPERTENSIVE URGENCY (4) Chronic GERD Code(s): K21.9 - GASTRO-ESOPHAGEAL REFLUX DISEASE WITHOUT ESOPHAGITIS (5) DVT prophylaxis Code(s): [id number] - (6) Edema Code(s): R60.9 - EDEMA, UNSPECIFIED (7) GERD (gastroesophageal reflux disease) Code(s): K21.9 - GASTRO-ESOPHAGEAL REFLUX DISEASE WITHOUT ESOPHAGITIS (8) H/O hernia repair Code(s): Z98.89 - OTHER SPECIFIED POSTPROCEDURAL STATES * DO NOT USE * (9) Incisional hernia, incarcerated Code(s): K43.0 - INCISIONAL HERNIA WITH OBSTRUCTION, WITHOUT GANGRENE (10) Palpitations Code(s): R00.2 - PALPITATIONS (11) S/P hernia repair Code(s): Z98.89 - OTHER SPECIFIED POSTPROCEDURAL STATES * DO NOT USE *; Z87.19 - PERSONAL HISTORY OF OTHER DISEASES OF THE DIGESTIVE SYSTEM (12) Ventral hernia with obstruction Code(s): K43.6 - OTHER AND UNSP VENTRAL HERNIA WITH OBSTRUCTION, W/O GANGRENE (13) CKD (chronic kidney disease) Code(s): N18.9 - CHRONIC KIDNEY DISEASE, UNSPECIFIED (14) DM2 (diabetes mellitus, type 2) Code(s): E11.9 - TYPE 2 DIABETES MELLITUS WITHOUT COMPLICATIONS Qualifiers: Diabetes mellitus longterm insulin use: with termite control service representative use Diabetes mellitus complication status: with hyperglycemia Qualified Code(s): E11.65 - Type 2 diabetes mellitus with hyperglycemia (15) HTN (hypertension) Code(s): I10 - ESSENTIAL (PRIMARY) HYPERTENSION Qualifiers: Hypertension type: essential hypertension Qualified Code(s): I10 - Essential (primary) hypertension (16) Hyperlipidemia Code(s): E78.5 - HYPERLIPIDEMIA, UNSPECIFIED (17) Hypothyroidism Code(s): E03.9 - HYPOTHYROIDISM, UNSPECIFIED Assessment/Plan 71 yo F with a PMHx of HTN, HLD, DM who presents to the ED with chest pain today. Pain was in her L side of chest, sudden in onset, lasted for 10min , got better itself, radiated to l shoulder, Not associated with sob, palpitations, dizziness, change in vision, headache. Denies nausea, vomiting and diaphoresis. In ED patinet was found to have HTN emergancy with troponemia and william parkinson's disease chronic renal insufficiency. baseline creatinine level 2 chest pain palpitations diabetes hypertension factor 7 deficiency 2/6 RED heart murmur mild left carotid bruit morbid obesity Non-compliance with medical treatment. Plan restart meds icu monitoring asa 81 qd when bp stable c. cath when stable cc time 70 min
[2017-08-20 09:31] LABS: BASO % 0.2 % (0-2.0); EOS % 0.5 % (0-4.5); LYMPH % 18.3 % (8-40); MCH 28.4 pg (25.7-33.7); MCHC 33.4 g/dl (32.0-36.0); MEAN PLT VOLUME 7.6 fl (7.5-11.1); MONO % 7.9 % (3.8-10.2); NEUT % 73.1 % (42.8-82.8); PLATELET COUNT 180 K/MM3 (134-434); RBC 3.53 M/mm3 (3.60-5.2); RDW 15.5 % (11.6-15.6); WHITE BLOOD COUNT 5.5 K/mm3 (4.0-10.0)
[2017-08-20 09:57] LABS: CHLORIDE 109 mmol/L (98-107); POTASSIUM 3.4 mmol/L (3.5-5.1); SODIUM 142 mmol/L (136-145)
[2017-08-20] MEDS ORDERED: amLODIPine BESYLATE 10 MG TABLET (FP) PO SCH (10:00)
[2017-08-20] MEDS ORDERED: MUPIROCIN 2% TOPICAL OINTMENT FOR DECOLONIZATION NS SCH ×2 (10:00→22:00)
[2017-08-20] MEDS ORDERED: VALSARTAN 160 MG TABLET (UD) PO SCH (10:00)
[2017-08-20] MEDS ORDERED: COLCHICINE 0.6 MG TABLET (FP) PO SCH (10:00)
[2017-08-20] MEDS ORDERED: PANTOPRAZOLE 40 MG TABLET (FP) PO SCH (10:00)
[2017-08-20] MEDS ORDERED: FUROSEMIDE 20 MG TABLET (FP) PO SCH (10:00)
[2017-08-20] MEDS ORDERED: RIVASTIGMINE TARTRATE 1.5 MG CAPSULE PO SCH (10:00)
[2017-08-20 10:35] LABS: ALBUMIN 2.8 g/dl (3.4-5.0); ALK PHOS 153 U/L (45-117); ANION GAP 9 (8-16); BILIRUBIN,TOTAL 0.2 mg/dL (0.2-1.0); BLOOD UREA NITROGEN 35 mg/dL (7-18); CALCIUM 9.3 mg/dL (8.5-10.1); CO2 24 mmol/L (21-32); CREATININE 2.5 mg/dL (0.55-1.02); GLUCOSE,RANDOM 239 mg/dL (74-106); MAGNESIUM 1.8 mg/dL (1.8-2.4); PHOSPHOROUS 2.9 mg/dL (2.5-4.9); SGOT/AST 12 U/L (15-37); SGPT/ALT 9 U/L (12-78); TOT PROT 6.3 g/dl (6.4-8.2)
--- NOTE | 2017-08-20 19:40 | EKG ---
Test Reason : Blood Pressure : / mmHG Vent. Rate : 067 BPM Atrial Rate : 067 BPM P-R Int : 158 ms QRS Dur : 080 ms QT Int : 436 ms P-R-T Axes : 020 -13 028 degrees QTc Int : 460 ms NORMAL SINUS RHYTHM MODERATE VOLTAGE CRITERIA FOR LVH, MAY BE NORMAL VARIANT NONSPECIFIC T WAVE ABNORMALITY ABNORMAL ECG WHEN COMPARED WITH ECG OF 19-AUG-2017 23:35, NO SIGNIFICANT CHANGE WAS FOUND Confirmed by AMILCAR MORALES, ROSELINE ([id number]) on 08/20/2017 7:40:10 PM Referred By: Markel WESLEY Confirmed By:ROSELINE FITZGERALD MD
[2017-08-20] MEDS: RIVASTIGMINE TARTRATE 1.5 MG CAPSULE PO SCH (21:49)
[2017-08-20] MEDS: INSULIN (LEVEMIR) 100 UNITS/ML UNITS SQ SCH (21:49)
[2017-08-20] MEDS: ATORVASTATIN CA 20 MG TABLET (FP) PO SCH (21:50)
[2017-08-20] MEDS ORDERED: CHLORHEXIDINE GLUCONATE 4% CLEANSER FOR DECOLONIZATION TP SCH ×2 (22:00)
[2017-08-20] MEDS ORDERED: INSULIN (LEVEMIR) 100 UNITS/ML UNITS SQ SCH (22:00)
[2017-08-20] MEDS ORDERED: ATORVASTATIN CA 20 MG TABLET (FP) PO SCH (22:00)
[2017-08-21] MEDS: INSULIN SLIDING SCALE (NOVOLOG) 1 VIAL SQ SCH ×4 (06:00→23:21)
[2017-08-21] MEDS: LEVOTHYROXINE NA 100 MCG TABLET (FP) PO SCH (06:01)
[2017-08-21] MEDS: CARBIDOPA/LEVODOPA 25/100 TABLET (FP) PO SCH ×3 (06:02→22:06)
[2017-08-21 07:33] LABS: ANION GAP 7 (8-16); BLOOD UREA NITROGEN 32 mg/dL (7-18); CALCIUM 9.3 mg/dL (8.5-10.1); CHLORIDE 113 mmol/L (98-107); CO2 25 mmol/L (21-32); CREATININE 2.3 mg/dL (0.55-1.02); GLUCOSE,RANDOM 121 mg/dL (74-106); POTASSIUM 3.9 mmol/L (3.5-5.1); SODIUM 145 mmol/L (136-145)
[2017-08-21] MEDS ORDERED: PT OWN MED DRAWER 7, Y5N ONE ×2 (09:36→21:04)
[2017-08-21] MEDS: RIVASTIGMINE TARTRATE 1.5 MG CAPSULE PO SCH ×2 (09:53→22:06)
[2017-08-21] MEDS: VALSARTAN 160 MG TABLET (UD) PO SCH (09:53)
[2017-08-21] MEDS: COLCHICINE 0.6 MG TABLET (FP) PO SCH (09:53)
[2017-08-21] MEDS: PANTOPRAZOLE 40 MG TABLET (FP) PO SCH (09:54)
[2017-08-21] MEDS: amLODIPine BESYLATE 10 MG TABLET (FP) PO SCH (09:54)
--- NOTE | 2017-08-21 10:21 | PN ---
Progress Note, Physician History of Present Illness: 71 yo F with a PMHx of HTN, HLD, DM who presents to the ED with chest pain today. Pain was in her L side of chest, sudden in onset, lasted for 10min , got better itself, radiated to l shoulder, Not associated with sob, palpitations, dizziness, change in vision, headache. Denies nausea, vomiting and diaphoresis. In ED bryn was found to have HTN emergancy with troponemia and william bp 227/84 PMH parkinson's disease chronic renal insufficiency. baseline creatinine level 2 chest pain palpitations diabetes hypertension factor 7 deficiency - no DAPT as per recent hem consult / RED heart murmur mild left carotid bruit morbid obesity Non-compliance with medical treatment. positive MIBI ST for lateral ischemia - awaiting. c. cath - Current Medication List Current Medications: Active Medications Amlodipine Besylate (Norvasc -) 10 mg PO DAILY [facility] Last Admin: 08/21/17 09:54 Dose: 10 mg Atorvastatin Calcium (Lipitor -) [address] [facility] Last Admin: 08/20/17 21:50 Dose: 20 mg Carbidopa/Levodopa (Sinemet 25/100 -) 1 each PO TID [facility] Last Admin: 08/21/17 06:02 Dose: 1 each Colchicine (Colcrys -) 0.3 mg PO DAILY [facility] Last Admin: 08/21/17 09:53 Dose: 0.3 mg Insulin Aspart (Novolog Vial Sliding Scale -) 1 vial SQ [facility]; Protocol Last Admin: 08/21/17 06:00 Dose: Not Given Insulin Detemir (Levemir Vial) [address] [facility] Last Admin: 08/20/17 21:49 Dose: 30 units Levothyroxine Sodium (Synthroid -) 100 mcg PO DAILY@0700 [facility] Last Admin: 08/21/17 06:01 Dose: 100 mcg Pantoprazole Sodium (Protonix -) 40 mg PO DAILY [facility] Last Admin: 08/21/17 09:54 Dose: 40 mg Rivastigmine Tartrate (Exelon (Nf) -) 1.5 mg PO BID [facility] Last Admin: 08/21/17 09:53 Dose: 1.5 mg Valsartan (Diovan -) 160 mg PO DAILY [facility] Last Admin: 08/21/17 09:53 Dose: 160 mg - Objective Vital Signs: Vital Signs Temperature 98.4 F 08/21/17 09:50 Pulse Rate 72 08/21/17 09:50 Respiratory Rate 20 08/21/17 09:50 Blood Pressure 150/78 08/21/17 09:50 O2 Sat by Pulse Oximetry (%) 98 08/20/17 22:00 Eyes: Yes: WNL, Conjunctiva Clear, EOM Intact HENT: Yes: WNL, Atraumatic, Normocephalic Neck: Yes: WNL, Supple, Trachea Midline Cardiovascular: Yes: WNL, Regular Rate and Rhythm Respiratory: Yes: WNL, Regular, CTA Bilaterally Gastrointestinal: Yes: WNL, Normal Bowel Sounds Genitourinary: Yes: WNL Musculoskeletal: Yes: WNL Extremities: Yes: WNL Edema: No Integumentary: Yes: WNL Neurological: Yes: WNL, Alert, Oriented ...Motor Strength: WNL Psychiatric: Yes: WNL Labs: CBC, BMP 08/20/17 09:10 08/21/17 06:45 Problem List - Problems (1) Chest pain Code(s): R07.9 - CHEST PAIN, UNSPECIFIED Qualifiers: Chest pain type: unspecified Qualified Code(s): R07.9 - Chest pain, unspecified (2) Elevated troponin Code(s): R74.8 - ABNORMAL LEVELS OF OTHER SERUM ENZYMES (3) Hypertensive urgency Code(s): I16.0 - HYPERTENSIVE URGENCY (4) Chronic GERD Code(s): K21.9 - GASTRO-ESOPHAGEAL REFLUX DISEASE WITHOUT ESOPHAGITIS (5) DVT prophylaxis Code(s): [id number] - (6) Edema Code(s): R60.9 - EDEMA, UNSPECIFIED (7) GERD (gastroesophageal reflux disease) Code(s): K21.9 - GASTRO-ESOPHAGEAL REFLUX DISEASE WITHOUT ESOPHAGITIS (8) H/O hernia repair Code(s): Z98.89 - OTHER SPECIFIED POSTPROCEDURAL STATES * DO NOT USE * (9) Incisional hernia, incarcerated Code(s): K43.0 - INCISIONAL HERNIA WITH OBSTRUCTION, WITHOUT GANGRENE (10) Palpitations Code(s): R00.2 - PALPITATIONS (11) S/P hernia repair Code(s): Z98.89 - OTHER SPECIFIED POSTPROCEDURAL STATES * DO NOT USE *; Z87.19 - PERSONAL HISTORY OF OTHER DISEASES OF THE DIGESTIVE SYSTEM (12) Ventral hernia with obstruction Code(s): K43.6 - OTHER AND UNSP VENTRAL HERNIA WITH OBSTRUCTION, W/O GANGRENE (13) CKD (chronic kidney disease) Code(s): N18.9 - CHRONIC KIDNEY DISEASE, UNSPECIFIED (14) DM2 (diabetes mellitus, type 2) Code(s): E11.9 - TYPE 2 DIABETES MELLITUS WITHOUT COMPLICATIONS Qualifiers: Diabetes mellitus senior care insulin use: with long term care administrator use Diabetes mellitus complication status: with hyperglycemia Qualified Code(s): E11.65 - Type 2 diabetes mellitus with hyperglycemia (15) HTN (hypertension) Code(s): I10 - ESSENTIAL (PRIMARY) HYPERTENSION Qualifiers: Hypertension type: essential hypertension Qualified Code(s): I10 - Essential (primary) hypertension (16) Hyperlipidemia Code(s): E78.5 - HYPERLIPIDEMIA, UNSPECIFIED (17) Hypothyroidism Code(s): E03.9 - HYPOTHYROIDISM, UNSPECIFIED Assessment/Plan 71 yo F with a PMHx of HTN, HLD, DM who presents to the ED with chest pain today. Pain was in her L side of chest, sudden in onset, lasted for 10min , got better itself, radiated to l shoulder, Not associated with sob, palpitations, dizziness, change in vision, headache. Denies nausea, vomiting and diaphoresis. In ED bryn was found to have HTN emergancy with troponemia and william parkinson's disease chronic renal insufficiency. baseline creatinine level 2 chest pain palpitations diabetes hypertension factor 7 deficiency 2/6 RED heart murmur mild left carotid bruit morbid obesity Non-compliance with medical treatment. Plan monitor BUN/cr hem consult re safety of DAPT asa 81 qd for now c. cath when stable
--- NOTE | 2017-08-21 11:24 | PN ---
Progress Note (short form) - Note Progress Note: PULMONARY CONSULTATION DICTATED 08/21/17 IMP CHEST PAIN SYNDROME LIKELY ACS HYPERTENSIVE URGENCY +TROPONINS FACTOR V11 DEFICIENCY PARKINSONS CKD GOUT DM PLAN TREND TROPONINS TITRATE BP MEDS ARDIAC MED PER CARDIOLOGY CARDIAC W/U CARDIAC CATH DVT PROPHYLAXIS MONITOR LYTES/RENAL FUNCTION DR FERRIS Problem List - Problems (1) Parkinsons Code(s): G20 - PARKINSON'S DISEASE (2) Chest pain Code(s): R07.9 - CHEST PAIN, UNSPECIFIED Qualifiers: Chest pain type: unspecified Qualified Code(s): R07.9 - Chest pain, unspecified (3) Elevated troponin Code(s): R74.8 - ABNORMAL LEVELS OF OTHER SERUM ENZYMES (4) Hypertensive urgency Code(s): I16.0 - HYPERTENSIVE URGENCY (5) DVT prophylaxis Code(s): [id number] - (6) Edema Code(s): R60.9 - EDEMA, UNSPECIFIED (7) CKD (chronic kidney disease) Code(s): N18.9 - CHRONIC KIDNEY DISEASE, UNSPECIFIED (8) DM2 (diabetes mellitus, type 2) Code(s): E11.9 - TYPE 2 DIABETES MELLITUS WITHOUT COMPLICATIONS Qualifiers: Diabetes mellitus terminal operator insulin use: with fdc use Diabetes mellitus complication status: with hyperglycemia Qualified Code(s): E11.65 - Type 2 diabetes mellitus with hyperglycemia (9) HTN (hypertension) Code(s): I10 - ESSENTIAL (PRIMARY) HYPERTENSION Qualifiers: Hypertension type: essential hypertension Qualified Code(s): I10 - Essential (primary) hypertension (10) Hyperlipidemia Code(s): E78.5 - HYPERLIPIDEMIA, UNSPECIFIED
--- NOTE | 2017-08-21 11:37 | PN ---
Physical Exam: SUBJECTIVE: Patient seen and examined at bed side this morning. Patient reports her chest pain and palpitation has resolved. Denies any sob, cough, abdominal pain, nausea or vomiting. Has h/o constipation. Last BM 2 days ago. No acute overnight events. OBJECTIVE: Vital Signs Period Temp Pulse Resp BP Sys/Navas Pulse Ox Last 24 Hr 97.6 F-98.8 F 65-88 16-20 127-166/58-83 98 GENERAL: Patient is lying comfortably in bed, is awake, alert, and fully oriented, in no acute distress. HEAD: Normal with no signs of trauma. EYES: EOM intact, no pallor or icterus. ENT: Ears normal, moist mucous membranes. NECK: Supple, Left carotid bruit +. LUNGS: Breath sounds equal, clear to auscultation bilaterally, no wheezes, no crackles, no accessory muscle use. HEART: Regular rate and rhythm, S1, S2 with systolic murmur in Left second ICS. ABDOMEN: Soft, nontender, nondistended, normoactive bowel sounds, no guarding, no rebound, no hepatosplenomegaly, no masses. EXTREMITIES: 2+ pulses, warm, well-perfused, no edema. NEUROLOGICAL: No facial droop. Normal speech, gait not observed. PSYCH: Normal mood, normal affect. SKIN: Warm, dry, normal turgor, no rashes or lesions noted Laboratory Results - last 24 hr 08/20/17 08/20/17 08/20/17 15:25 17:05 21:48 Sodium Potassium Chloride Carbon Dioxide Anion Gap BUN Creatinine Creat Clearance w eGFR POC Glucometer 273 253 Random Glucose Calcium Creatine Kinase 81 Troponin I 0.06 H 08/21/17 08/21/17 05:52 06:45 Sodium 145 Potassium 3.9 Chloride 113 H Carbon Dioxide 25 Anion Gap 7 L BUN 32 H Creatinine 2.3 H Creat Clearance w eGFR 20.96 POC Glucometer 126 Random Glucose 121 H Calcium 9.3 Creatine Kinase Troponin I Active Medications Generic Name Dose Route Start Last Admin Trade Name Freq PRN Reason Stop Dose Admin Amlodipine Besylate 10 mg 08/21/17 10:00 08/21/17 09:54 Norvasc - PO 10 mg DAILY RUBEN Administration Atorvastatin Calcium 20 mg 08/20/17 22:00 08/20/17 21:50 Lipitor - PO 20 mg HS RUBEN Administration Carbidopa/Levodopa 1 each 08/20/17 22:00 08/21/17 06:02 Sinemet 25/100 - PO 1 each TID RUBEN Administration Colchicine 0.3 mg 08/21/17 10:00 08/21/17 09:53 Colcrys - PO 0.3 mg DAILY RUBEN Administration Insulin Aspart 1 vial 08/20/17 16:30 08/21/17 06:00 Novolog Vial Sliding Scale - SQ Not Given ACHS [facility] Protocol Insulin Detemir 30 units 08/20/17 22:00 08/20/17 21:49 Levemir Vial SQ 30 units HS RUBEN Administration Levothyroxine Sodium 100 mcg 08/21/17 07:00 08/21/17 06:01 Synthroid - PO 100 mcg DAILY@0700 RUBEN Administration Pantoprazole Sodium 40 mg 08/21/17 10:00 08/21/17 09:54 Protonix - PO 40 mg DAILY RUBEN Administration Rivastigmine Tartrate 1.5 mg 08/20/17 22:00 08/21/17 09:53 Exelon (Nf) - PO 1.5 mg BID RUBEN Administration Valsartan 160 mg 08/21/17 10:00 08/21/17 09:53 Diovan - PO 160 mg DAILY RUBEN Administration ASSESSMENT/PLAN: Patient is 71 year old female with significant past medical history of HTN, DM, HLD, Gout, Parkinsons Disease, Factor 7 deficiency presented to the ED with Hypertensive Emergency (Increased troponin and YASIR) # Hypertension emergency with troponemia with L side chest pain r/o acs Was on Labetolol drip which was stopped yesterday, Blood pressure controlled Admitted in Tele/Inpatient Continuous cardiac monitoring Chest pain, sob has resolved Continue Amlodipine 10mg and Valsartan 160 mg PO daily ECHO report pending Appreciate Dr. Burroughs consult No Heparin drip or Aspirin as patient has Factor 7 def. # Diabetes Mellitus A1c- 7 ISS Watch for hypoglycemic episodes Diabetic diet # Hypothyroidism Continue levothyroxine 100 mcg PO daily TSH 7.72 # YASIR superimposed on CKD Pt baseline ~2.2, creatinine today is 2.3 from 2.8 Awaiting renal and bladder scan Encourage PO fluids Avoid nephrotoxic drugs # Hyperlipidemia Continue lipitor 20mg PO HS # Parkinson's disease Continue Sinemet # Gout-not in flare Continue colchicine # FEN Not on any IV fluids, encourage PO intake Continue to monitor electrolytes Salt controlled diet # Prophylaxis For DVT: SCDs, no heparin For GI: On Protonix # Code Status: Full Code # Dispo: Admitted in Tele/Inpatient. Likely can be discharged tomorrow Illness, Investigation and plan of care explained to the patient. She verbalized understanding. Case discussed with Dr. Herzog. Visit type - Emergency Visit Emergency Visit: Yes ED Registration Date: 08/20/17 Care time: The patient presented to the Emergency Department on the above date and was hospitalized for further evaluation of their emergent condition. - New Patient This patient is new to me today: Yes Date on this admission: 08/21/17 - Critical Care Critical Care patient: No - Discharge Referral Referred to [facility] No
[2017-08-21] MEDS ORDERED: INSULIN (NOVOLOG) ASPART 100 UNITS/ML 10ML VIAL ONE ×2 (11:49→21:03)
--- NOTE | 2017-08-21 12:19 | CONS ---
DATE OF CONSULTATION: 08/21/2017 REFERRING PHYSICIAN: Kevan Herzog MD HISTORY: The patient is a 71-year-old black female with past medical history of Parkinson's, diabetes, hypertension, chronic kidney disease, hypothyroidism, resting tremors, factor 7 deficiency, moderate aortic regurgitation admitted to [facility] on August 19 with complaint of chest pain and palpitations. The patient states she was getting ready for bed on the date of admission at which time she started developing some chest palpitations. She also felt chest tightness. She denied any nausea, vomiting, or diaphoresis. She denied any hemoptysis. She presented to the emergency room as above. On admission, troponins were drawn and transferred to the medical floor for further management. Of note, she had workup of previous hospitalization in May for similar symptoms. At the time, she had a stress test, which was within normal limits. The patient was evaluated by Dr. Osorio for Cardiology consultation on current admission who recommended continue nitrates as well as probable cardiac catheterization. The patient has a history of smoking. Quit many years ago. There is no history of occupational exposure to chemicals or fumes. She denies any COPD or asthma in the past. There is no history of recent travel. There is no history of DVT or PE in the past. PAST MEDICAL HISTORY: Again, includes Parkinson's, chronic kidney disease, hypertension, factor 7 deficiency. No DAPTS per recent hematology consult. History of aortic regurgitation. Left carotid bruits. REVIEW OF SYSTEMS: No orthopnea. No PND. Positive chest pain. Positive palpitations. No nausea, no vomiting, no diaphoresis, no abdominal pain. Positive mild lower extremity edema. CURRENT MEDICATIONS: Include Diovan, colchicine, Norvasc, Sinemet, Lipitor, NovoLog, Levemir, Exelon, Protonix, and Synthroid. PHYSICAL EXAMINATION: General: The patient is a well-developed, well-nourished female awake and alert in no acute distress. Vital Signs: She is currently afebrile. Heart rate 72, blood pressure 150/78, respiratory rate 20, O2 saturation 99% on room air. HEENT: Normocephalic and atraumatic. Neck: Supple. Heart: Regular with S1, S2. Chest: Clear. Abdomen: Soft. Bowel sounds positive. Extremities: No clubbing or edema. LABORATORIES: WBC 5.5, hemoglobin 10, hematocrit 30, platelet count 180,000. INR 1.4, BUN 32, creatinine 2.3. Troponin 0.06. Chest x-ray: No infiltrates and no effusions. IMPRESSION: 1. Chest pain syndrome, likely acute coronary syndrome. 2. Chronic kidney disease. 3. Parkinson's. 4. Diabetes. 5. Hyperlipidemia. 6. Hypertensive Urgency 7. Positive troponins. PLAN: Trend troponins. Continue cardiac workup as per Cardiology. Cardiac catheterization. Monitor renal function. Monitor BPs.Titrate bp meds Thank you. We will follow closely with you. NATALIIA FERRIS M.D. [id number] MTDD
--- NOTE | 2017-08-21 15:40 | PN ---
Teaching Attending Note Name of Resident: Swapna Corrales ATTENDING PHYSICIAN STATEMENT I saw and evaluated the patient. I reviewed the resident's note and discussed the case with the resident. I agree with the resident's findings and plan as documented. SUBJECTIVE: Patient denies CP, palpitations, SOB. OBJECTIVE: Vital Signs Period Temp Pulse Resp BP Sys/Navas Pulse Ox Last 24 Hr 97.6 F-98.8 F 70-75 18-20 127-166/61-78 97-98 HEART: S1S2, RRR LUNGS: Clear ABDOMEN: Obese, soft, non-tender, non-distended, normal BS EXTREMITIES: Trace edema Laboratory Results - last 24 hr 08/20/17 08/20/17 08/20/17 11:19 15:25 17:05 Sodium Potassium Chloride Carbon Dioxide Anion Gap BUN Creatinine Creat Clearance w eGFR POC Glucometer [phone] Random Glucose Calcium Creatine Kinase 81 Troponin I 0.06 H 08/20/17 08/21/17 08/21/17 21:48 05:52 06:45 Sodium 145 Potassium 3.9 Chloride 113 H Carbon Dioxide 25 Anion Gap 7 L BUN 32 H Creatinine 2.3 H Creat Clearance w eGFR 20.96 POC Glucometer 253 126 Random Glucose 121 H Calcium 9.3 Creatine Kinase Troponin I 08/21/17 11:40 Sodium Potassium Chloride Carbon Dioxide Anion Gap BUN Creatinine Creat Clearance w eGFR POC Glucometer 155 Random Glucose Calcium Creatine Kinase Troponin I Current Medications Generic Name Dose Route Start Last Admin Trade Name Freq PRN Reason Stop Dose Admin Amlodipine Besylate 10 mg 08/21/17 10:00 08/21/17 09:54 Norvasc - PO 10 mg DAILY RUBEN Administration Atorvastatin Calcium 20 mg 08/20/17 22:00 08/20/17 21:50 Lipitor - PO 20 mg HS RUBEN Administration Carbidopa/Levodopa 1 each 08/20/17 22:00 08/21/17 14:56 Sinemet 25/100 - PO 1 each TID RUBEN Administration Colchicine 0.3 mg 08/21/17 10:00 08/21/17 09:53 Colcrys - PO 0.3 mg DAILY RUBEN Administration Insulin Aspart 1 vial 08/20/17 16:30 08/21/17 11:41 Novolog Vial Sliding Scale - SQ 2 units ACHS RUBEN Administration Protocol Insulin Detemir 30 units 08/20/17 22:00 08/20/17 21:49 Levemir Vial SQ 30 units HS RUBEN Administration Levothyroxine Sodium 100 mcg 08/21/17 07:00 08/21/17 06:01 Synthroid - PO 100 mcg DAILY@0700 RUBEN Administration Pantoprazole Sodium 40 mg 08/21/17 10:00 08/21/17 09:54 Protonix - PO 40 mg DAILY RUBEN Administration Rivastigmine Tartrate 1.5 mg 08/20/17 22:00 08/21/17 09:53 Exelon (Nf) - PO 1.5 mg BID RUBEN Administration Valsartan 160 mg 08/21/17 10:00 08/21/17 09:53 Diovan - PO 160 mg DAILY RUBEN Administration ASSESSMENT AND PLAN: This is a 71 year old woman with a history of HTN, hyperlipidemia, type 2 DM, hypothyroidism, stage 4 CKD, gout, Parkinson disease, factor VII deficiency who presented to the ED with chest pain. 1. Hypertensive emergency - Resolved 2. HTN - Continue Norvasc, Diovan - Echo pending 3. Chest pain - Resolved 4. Elevated troponin - Possibly secondary to hypertensive emergency and YASIR/CKD - Echo pending - Plan for cardiac cath 5. Acute kidney injury - Improved 6. Stage 4 CKD 7. Type 2 diabetes mellitus - Continue Levemir, Novolog sliding scale 8. Hypothyroidism - Continue Synthroid 9. Hyperlipidemia - Continue Lipitor 10. Parkinson disease - Continue Sinemet, Exelon 11. History of gout - Continue Colchicine 12. Obesity with BMI 33.4
[2017-08-21] MEDS: ATORVASTATIN CA 20 MG TABLET (FP) PO SCH (22:06)
[2017-08-21 23:08] LABS: ALBUMIN 2.7 g/dl (3.4-5.0); ALK PHOS 150 U/L (45-117); ANION GAP 7 (8-16); BILIRUBIN,TOTAL 0.2 mg/dL (0.2-1.0); BLOOD UREA NITROGEN 34 mg/dL (7-18); CALCIUM 9.2 mg/dL (8.5-10.1); CHLORIDE 106 mmol/L (98-107); CO2 25 mmol/L (21-32); CREATININE 2.6 mg/dL (0.55-1.02); POTASSIUM 4.5 mmol/L (3.5-5.1); SGOT/AST 13 U/L (15-37); SGPT/ALT 10 U/L (12-78); SODIUM 138 mmol/L (136-145); TOT PROT 6.4 g/dl (6.4-8.2)
[2017-08-21 23:11] LABS: GLUCOSE,RANDOM 367 mg/dL (74-106)
[2017-08-21] MEDS: INSULIN (LEVEMIR) 100 UNITS/ML UNITS SQ SCH (23:20)
--- NOTE | 2017-08-22 00:10 | CONSULT ---
Consult - text type - Consultation Consultation Note: 71 yo F with a PMHx of HTN, HLD, DM who presents with chest pain today. Pain was in her L side of chest, sudden in onset, lasted for 10min , got better itself, radiated to l shoulder, not associated with sob, palpitations, dizziness , change in vision, headache. Denies nausea, vomiting and diaphoresis. In ED bryn was found to have HTN emergancy with troponemia and william Currently she is asymptomatic and is feeling well PMH parkinson's disease chronic renal insufficiency. baseline creatinine level 2 chest pain palpitations diabetes hypertension factor 7 deficiency --- h/o factor VII deficiency, diagnosed as an adult , few yrs. ago. No h/o spontaneous bleeding. h/o several surgeries without any special products. But did receive blood transfusion after hysterectomy and cholecystectomy. Most recent surgery was hernia repair 2 yrs. ago and did not have any bleeding complications post op. 2/6 RED heart murmur mild left carotid bruit morbid obesity Non-compliance with medical treatment. positive MIBI ST for lateral ischemia - awaiting. c. 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 Cardio/Vascular: Yes: HTN Pulmonary: Yes: Asthma (denies attacks, but ?has pumps at home) Gastrointestinal: Yes: GERD Hepatobiliary: Yes: Cholecystitis (s/p cholecystectomy) Renal/: Yes: Renal Inusuff Psych: Yes: Anxiety Rheumatology: Yes: Gout Endocrine: Yes: Diabetes Mellitus - Alcohol/Substance Use Hx Alcohol Use: No History of Substance Use: reports: None - Smoking History Smoking history: Never smoked - Social History ADL: Independent Home Medications - Allergies Allergies/Adverse Reactions: Allergies Allergy/AdvReac Type Severity Reaction Status Date / Time No Known Drug Allergies Allergy Verified 08/19/17 23:34 - Home Medications Home Medications: Ambulatory Orders Insulin Glargine,Hum.rec.anlog [Lantus (10mL VIAL) -] 50 units SQ HS 07/26/15 Insulin Lispro [Humalog] 10 unit SQ TID 07/26/15 Levothyroxine [Synthroid -] 100 mcg PO DAILY 07/26/15 Metoprolol Succinate [Toprol XL -] 50 mg PO DAILY 07/26/15 Omeprazole [Prilosec] 40 mg PO DAILY 07/26/15 Carbidopa/Levodopa [Carbidopa-Levodopa 25-100 Tab] 1 each PO TID 05/15/16 Linagliptin [Tradjenta] 5 mg PO DAILY 05/15/16 Atorvastatin Ca [Lipitor] 20 mg PO HS #30 tablet 05/16/17 Colchicine 0.6 mg PO DAILY 05/16/17 Furosemide 20 mg PO DAILY 05/16/17 Rivastigmine Tartrate [Exelon (Nf) -] 1.5 mg PO BID 05/16/17 Amlodipine Besylate [Norvasc -] 10 mg PO DAILY #30 tablet 05/17/17 Valsartan 160 mg PO DAILY #30 tablet 05/17/17 Family Disease History - Family Disease History Family Disease History: Heart Disease: Father (PR in his 70s), Mother (?PR in her 70s), Sister (PR inher 60s) Vital Signs: Vital Signs Temperature 98.7 F 08/20/17 07:15 Pulse Rate 88 08/20/17 09:08 Respiratory Rate 22 08/20/17 09:08 Blood Pressure 160/81 08/20/17 09:08 O2 Sat by Pulse Oximetry (%) 98 08/20/17 07:15 Constitutional: Yes: Well Nourished, No Distress, Calm Eyes: Yes: WNL, Conjunctiva Clear, EOM Intact HENT: Yes: WNL, Atraumatic, Normocephalic Neck: Yes: WNL, Supple, Trachea Midline Respiratory: Yes: WNL, Regular, CTA Bilaterally Gastrointestinal: Yes: WNL, Normal Bowel Sounds Cardiovascular: Yes: WNL, Regular Rate and Rhythm Heart Sounds: Yes: S1, S2 Murmur: Yes: Systolic Murmur Musculoskeletal: Yes: WNL Extremities: Yes: WNL Integumentary: Yes: WNL Neurological: Yes: WNL, Alert, Oriented ...Motor Strength: WNL Imaging - Results Chest X-ray: Image Reviewed (no i/e) EKG: Image Reviewed (sr wnl) Problem List - Problems (1) Chest pain Code(s): R07.9 - CHEST PAIN, UNSPECIFIED Qualifiers: Chest pain type: unspecified Qualified Code(s): R07.9 - Chest pain, unspecified (2) Elevated troponin Code(s): R74.8 - ABNORMAL LEVELS OF OTHER SERUM ENZYMES (3) Hypertensive urgency Code(s): I16.0 - HYPERTENSIVE URGENCY (4) Chronic GERD Code(s): K21.9 - GASTRO-ESOPHAGEAL REFLUX DISEASE WITHOUT ESOPHAGITIS (5) DVT prophylaxis Code(s): [id number] - (6) Edema Code(s): R60.9 - EDEMA, UNSPECIFIED (7) GERD (gastroesophageal reflux disease) Code(s): K21.9 - GASTRO-ESOPHAGEAL REFLUX DISEASE WITHOUT ESOPHAGITIS (8) H/O hernia repair Code(s): Z98.89 - OTHER SPECIFIED POSTPROCEDURAL STATES * DO NOT USE * (9) Incisional hernia, incarcerated Code(s): K43.0 - INCISIONAL HERNIA WITH OBSTRUCTION, WITHOUT GANGRENE (10) Palpitations Code(s): R00.2 - PALPITATIONS (11) S/P hernia repair Code(s): Z98.89 - OTHER SPECIFIED POSTPROCEDURAL STATES * DO NOT USE *; Z87.19 - PERSONAL HISTORY OF OTHER DISEASES OF THE DIGESTIVE SYSTEM (12) Ventral hernia with obstruction Code(s): K43.6 - OTHER AND UNSP VENTRAL HERNIA WITH OBSTRUCTION, W/O GANGRENE (13) CKD (chronic kidney disease) Code(s): N18.9 - CHRONIC KIDNEY DISEASE, UNSPECIFIED (14) DM2 (diabetes mellitus, type 2) Code(s): E11.9 - TYPE 2 DIABETES MELLITUS WITHOUT COMPLICATIONS Qualifiers: Diabetes mellitus shelter insulin use: with shelter use Diabetes mellitus complication status: with hyperglycemia Qualified Code(s): E11.65 - Type 2 diabetes mellitus with hyperglycemia (15) HTN (hypertension) Code(s): I10 - ESSENTIAL (PRIMARY) HYPERTENSION Qualifiers: Hypertension type: essential hypertension Qualified Code(s): I10 - Essential (primary) hypertension (16) Hyperlipidemia Code(s): E78.5 - HYPERLIPIDEMIA, UNSPECIFIED (17) Hypothyroidism Code(s): E03.9 - HYPOTHYROIDISM, UNSPECIFIED Assessment/Plan 71 yo F with a PMHx of HTN, HLD, DM who presents to the ED with chest pain. parkinson's disease chronic renal insufficiency. baseline creatinine level 2 chest pain palpitations diabetes hypertension factor 7 deficiency 2/6 RED heart murmur mild left carotid bruit morbid obesity Non-compliance with medical treatment. h/o factor 7 deficiency---elevated PT --- h/o factor VII deficiency, diagnosed as an adult , few yrs. ago. No h/o spontaneous bleeding. h/o several surgeries without any special products. But did receive blood transfusion after hysterectomy and cholecystectomy. Most recent surgery was hernia repair 2 yrs. ago and did not have any bleeding complications post op. She is followed by Carrington Frederick at [facility] and saw him 3 weeks ago. will recheck factor VII Level will discuss with cardiology about DAPT. currently on aspirin
[2017-08-22] MEDS: CARBIDOPA/LEVODOPA 25/100 TABLET (FP) PO SCH ×3 (05:40→21:44)
[2017-08-22] MEDS: INSULIN SLIDING SCALE (NOVOLOG) 1 VIAL SQ SCH ×4 (06:07→21:45)
[2017-08-22] MEDS: LEVOTHYROXINE NA 100 MCG TABLET (FP) PO SCH (06:08)
[2017-08-22 07:03] LABS: INR 1.5 (0.82-1.09); PROTHROMBIN TIME (PATIENT) 16.9 SEC (9.7-13.0)
[2017-08-22 07:05] LABS: ACTIVATED PTT 31.6 SECONDS (25.2-36.5)
[2017-08-22 07:20] LABS: CALCIUM 9.5 mg/dL (8.5-10.1); CHLORIDE 110 mmol/L (98-107); POTASSIUM 4.6 mmol/L (3.5-5.1); SODIUM 142 mmol/L (136-145)
[2017-08-22] MEDS ORDERED: INSULIN (NOVOLOG) ASPART 100 UNITS/ML 10ML VIAL ONE (07:22)
[2017-08-22 07:23] LABS: ANION GAP 6 (8-16); BLOOD UREA NITROGEN 35 mg/dL (7-18); CO2 26 mmol/L (21-32); CREATININE 2.4 mg/dL (0.55-1.02); GLUCOSE,RANDOM 145 mg/dL (74-106)
--- NOTE | 2017-08-22 08:58 | PN ---
Physical Exam: SUBJECTIVE: Patient seen and examined at the bedside. Feels well, in no distress. No chest pain, not short of breath. Ambulates to bathroom without discomfort. OBJECTIVE: irregular heart rate 80s on monitoring analyst Patient originally here for chest pain and hypertensive urgency Possible tfr to [place] for cardiac cath Vital Signs Period Temp Pulse Resp BP Sys/Navas Pulse Ox Last 24 Hr 97.8 F-98.5 F 71-78 16-20 138-166/58-86 97-97 GENERAL: The patient is awake, alert, and fully oriented, in no acute distress. HEAD: Normal with no signs of trauma. EYES: PERRL, extraocular movements intact, sclera anicteric, conjunctiva clear. No ptosis. ENT: Ears normal, nares patent, oropharynx clear without exudates, moist mucous membranes. NECK: Trachea midline, full range of motion, supple. LUNGS: Breath sounds equal, clear to auscultation bilaterally HEART: irregular heart rate ABDOMEN: Soft, nontender, nondistended, normoactive bowel sounds, no guarding, no rebound, no hepatosplenomegaly, no masses. NEUROLOGICAL: Normal speech, gait not observed. PSYCH: Normal mood, normal affect. SKIN: Warm, dry, normal turgor, no rashes or lesions noted Laboratory Results - last 24 hr 08/20/17 08/21/17 08/21/17 11:19 11:40 17:26 PT with INR INR PTT (Actin FS) Sodium Potassium Chloride Carbon Dioxide Anion Gap BUN Creatinine Creat Clearance w eGFR POC Glucometer [phone] 149 Random Glucose Calcium Total Bilirubin AST ALT Alkaline Phosphatase Total Protein Albumin 08/21/17 08/21/17 08/22/17 21:30 21:43 05:38 PT with INR INR PTT (Actin FS) Sodium 138 Potassium 4.5 Chloride 106 Carbon Dioxide 25 Anion Gap 7 L BUN 34 H Creatinine 2.6 H Creat Clearance w eGFR 18.20 POC Glucometer 401 155 Random Glucose 367 H* Calcium 9.2 Total Bilirubin 0.2 AST 13 L ALT 10 L Alkaline Phosphatase 150 H Total Protein 6.4 Albumin 2.7 L 08/22/17 08/22/17 06:00 06:00 PT with INR 16.90 H INR 1.50 H PTT (Actin FS) 31.6 Sodium 142 Potassium 4.6 Chloride 110 H Carbon Dioxide 26 Anion Gap 6 L BUN 35 H Creatinine 2.4 H Creat Clearance w eGFR 19.96 POC Glucometer Random Glucose 145 H Calcium 9.5 Total Bilirubin AST ALT Alkaline Phosphatase Total Protein Albumin Active Medications Generic Name Dose Route Start Last Admin Trade Name Samuel PRN Reason Stop Dose Admin Amlodipine Besylate 10 mg 08/21/17 10:00 08/21/17 09:54 Norvasc - PO 10 mg DAILY RUBEN Administration Atorvastatin Calcium 20 mg 08/20/17 22:00 08/21/17 22:06 Lipitor - PO 20 mg HS RUBEN Administration Carbidopa/Levodopa 1 each 08/20/17 22:00 08/22/17 05:40 Sinemet 25/100 - PO 1 each TID RUBEN Administration Colchicine 0.3 mg 08/21/17 10:00 08/21/17 09:53 Colcrys - PO 0.3 mg DAILY RUBEN Administration Insulin Aspart 1 vial 08/20/17 16:30 08/22/17 06:07 Novolog Vial Sliding Scale - SQ 2 units ACHS RUBEN Administration Protocol Insulin Detemir 30 units 08/20/17 22:00 08/21/17 23:20 Levemir Vial SQ 30 units HS RUBEN Administration Levothyroxine Sodium 100 mcg 08/21/17 07:00 08/22/17 06:08 Synthroid - PO 100 mcg DAILY@0700 RUBEN Administration Pantoprazole Sodium 40 mg 08/21/17 10:00 08/21/17 09:54 Protonix - PO 40 mg DAILY RUBEN Administration Rivastigmine Tartrate 1.5 mg 08/20/17 22:00 08/21/17 22:06 Exelon (Nf) - PO 1.5 mg BID RUBEN Administration Valsartan 160 mg 08/21/17 10:00 08/21/17 09:53 Diovan - PO 160 mg DAILY RUBEN Administration ASSESSMENT/PLAN: Patient is 71 year old female with significant past medical history of HTN, diabetes, HLD, gout, parkinsons Disease and Factor 7 deficiency. She comes to the ED on 08/20/17 with hypertensive emergency and chest pain. Card: Hypertensive urgency, resolved BP stable, on diovan, Norvasc Elevated trops Chest pain, rule out ACS Denies chest pain, no shortness of breath s/p labetolol drip Echo shows moderate TR, pulmonic valvular regurg. trace MR, mild aortic regurg, Cardiology following Has factor 5 def, unable to anticoagulate or give ASA On monitoring analyst, monitor Possible transfer for cardiac cath HLD, chronic On Lipitor Endocrine Diabetes mellitus Control blood sugars, BGMs On Levemir Hypothyrodism, chronic on Synthroid Renal CKD Renal and bladder scan Renal consult Neuro Parkinsons, chronic On Sinemet FEN tolerating PO monitor labs low salt diet No anticoag secondary to factor 5 def.
[2017-08-22] MEDS: PANTOPRAZOLE 40 MG TABLET (FP) PO SCH (09:25)
[2017-08-22] MEDS: amLODIPine BESYLATE 10 MG TABLET (FP) PO SCH (09:26)
[2017-08-22] MEDS: COLCHICINE 0.6 MG TABLET (FP) PO SCH (09:26)
[2017-08-22] MEDS: VALSARTAN 160 MG TABLET (UD) PO SCH (09:26)
[2017-08-22] MEDS: RIVASTIGMINE TARTRATE 1.5 MG CAPSULE PO SCH ×2 (09:30→21:44)
--- NOTE | 2017-08-22 12:02 | PN ---
Progress Note, Physician Chief Complaint: Pt OOB in chair, eating lunch. Asymtomatic History of Present Illness: The patient is a 71 year old black female with a history of HTN, HLD, DM, diastolic CHF, who presents for evaluation of chest pain and palpitations. The patient reports onset of palpitation with associated chest tightness this evening prompting her presentation to the ED for further evaluation. She notes that her symptoms have greatly improved since presentation to the ED. She reports similar symptoms in the past with a negative stress test 3 months ago. She otherwise denies fevers, chills, SOB, cough, nausea, vomiting, abdominal pain, or changes with urination or bowel movements. - Current Medication List Current Medications: Active Medications Amlodipine Besylate (Norvasc -) 10 mg PO DAILY [facility] Last Admin: 08/22/17 09:26 Dose: 10 mg Atorvastatin Calcium (Lipitor -) 20 mg PO [facility] Last Admin: 08/21/17 22:06 Dose: 20 mg Carbidopa/Levodopa (Sinemet 25/100 -) 1 each PO TID [facility] Last Admin: 08/22/17 05:40 Dose: 1 each Colchicine (Colcrys -) 0.3 mg PO DAILY [facility] Last Admin: 08/22/17 09:26 Dose: 0.3 mg Insulin Aspart (Novolog Vial Sliding Scale -) 1 vial SQ [facility]; Protocol Last Admin: 08/22/17 06:07 Dose: 2 units Insulin Detemir (Levemir Vial) 30 units SQ [facility] Last Admin: 08/21/17 23:20 Dose: 30 units Levothyroxine Sodium (Synthroid -) 100 mcg PO DAILY@0700 [facility] Last Admin: 08/22/17 06:08 Dose: 100 mcg Pantoprazole Sodium (Protonix -) 40 mg PO DAILY [facility] Last Admin: 08/22/17 09:25 Dose: 40 mg Rivastigmine Tartrate (Exelon (Nf) -) 1.5 mg PO BID [facility] Last Admin: 08/22/17 09:30 Dose: 1.5 mg Valsartan (Diovan -) 160 mg PO DAILY [facility] Last Admin: 08/22/17 09:26 Dose: 160 mg - Objective Vital Signs: Vital Signs Temperature 98.1 F 08/22/17 06:00 Pulse Rate 71 08/22/17 06:00 Respiratory Rate 16 08/22/17 06:00 Blood Pressure 151/74 08/22/17 06:00 O2 Sat by Pulse Oximetry (%) 97 08/21/17 22:00 Constitutional: Yes: No Distress Eyes: Yes: WNL HENT: Yes: WNL Neck: Yes: WNL Labs: CBC, BMP 08/20/17 09:10 08/22/17 06:00 INR, PTT INR 1.50 (0.82-1.09) H 08/22/17 06:00 Problem List - Problems (1) Elevated troponin Assessment/Plan: + stress MIBI; awaits clearance from hematology (regarding Factor 7 deficiency and abiliity to be on dual platelets for at least one month if bare-metal coronary stent required). Code(s): R74.8 - ABNORMAL LEVELS OF OTHER SERUM ENZYMES (2) Hypertensive urgency Assessment/Plan: on Diovan and amlodipine; f/u BP serially. Code(s): I16.0 - HYPERTENSIVE URGENCY (3) GERD (gastroesophageal reflux disease) Code(s): K21.9 - GASTRO-ESOPHAGEAL REFLUX DISEASE WITHOUT ESOPHAGITIS (4) Palpitations Code(s): R00.2 - PALPITATIONS (5) DM2 (diabetes mellitus, type 2) Code(s): E11.9 - TYPE 2 DIABETES MELLITUS WITHOUT COMPLICATIONS Qualifiers: Diabetes mellitus senior care insulin use: with keno terminal operator use Diabetes mellitus complication status: with hyperglycemia Qualified Code(s): E11.65 - Type 2 diabetes mellitus with hyperglycemia (6) Hyperlipidemia Assessment/Plan: on statin; modify diet; increase exercise (once coronary artery status is known) . Code(s): E78.5 - HYPERLIPIDEMIA, UNSPECIFIED (7) Hypothyroidism Assessment/Plan: TSH 7.7; f/u TFTs. On synthroid. Code(s): E03.9 - HYPOTHYROIDISM, UNSPECIFIED (8) Factor VII deficiency Assessment/Plan: f/u with inclusion special educator. Code(s): D68.2 - HEREDITARY DEFICIENCY OF OTHER CLOTTING FACTORS (9) Gout Code(s): M10.9 - GOUT, UNSPECIFIED
--- NOTE | 2017-08-22 12:28 | PN ---
Progress Note (short form) - Note Progress Note: PULMONARY States chest pain has resolved. No shortness of breath. Vital Signs Period Temp Pulse Resp BP Sys/Navas Pulse Ox Last 24 Hr 97.8 F-98.5 F 71-78 16-18 138-166/58-86 97 Gen: NAD in chair Heart: RRR Lung: decreased breath sounds at the bases Abd: soft, nontender Ext: no edema CBC, BMP 08/20/17 09:10 08/22/17 06:00 Active Medications Amlodipine Besylate (Norvasc -) 10 mg PO DAILY [facility] Last Admin: 08/22/17 09:26 Dose: 10 mg Atorvastatin Calcium (Lipitor -) 20 mg PO HS [facility] Last Admin: 08/21/17 22:06 Dose: 20 mg Carbidopa/Levodopa (Sinemet 25/100 -) 1 each PO TID [facility] Last Admin: 08/22/17 05:40 Dose: 1 each Colchicine (Colcrys -) 0.3 mg PO DAILY [facility] Last Admin: 08/22/17 09:26 Dose: 0.3 mg Insulin Aspart (Novolog Vial Sliding Scale -) 1 vial SQ [facility]; Protocol Last Admin: 08/22/17 12:11 Dose: Not Given Insulin Detemir (Levemir Vial) 30 units SQ [facility] Last Admin: 08/21/17 23:20 Dose: 30 units Levothyroxine Sodium (Synthroid -) 100 mcg PO DAILY@0700 [facility] Last Admin: 08/22/17 06:08 Dose: 100 mcg Pantoprazole Sodium (Protonix -) 40 mg PO DAILY [facility] Last Admin: 08/22/17 09:25 Dose: 40 mg Rivastigmine Tartrate (Exelon (Nf) -) 1.5 mg PO BID [facility] Last Admin: 08/22/17 09:30 Dose: 1.5 mg Valsartan (Diovan -) 160 mg PO DAILY [facility] Last Admin: 08/22/17 09:26 Dose: 160 mg A/P Chest Pain resolved Hypertensive Urgency +Troponins CKD DM Parkinsons - cardiac work up in progress - BP control - O2 as needed - DVT prophylaxis
--- NOTE | 2017-08-22 15:04 | PN ---
Progress Note (short form) - Note Progress Note: Pt seen and examined she says, she feels OK. Constitutional: Yes: Well Nourished, No Distress, Calm Eyes: Yes: WNL, Conjunctiva Clear, EOM Intact HENT: Yes: WNL, Atraumatic, Normocephalic Neck: Yes: WNL, Supple, Trachea Midline Respiratory: Yes: WNL, Regular, CTA Bilaterally Gastrointestinal: Yes: WNL, Normal Bowel Sounds Cardiovascular: Yes: WNL, Regular Rate and Rhythm Heart Sounds: Yes: S1, S2 Murmur: Yes: Systolic Murmur Musculoskeletal: Yes: WNL Extremities: Yes: WNL Integumentary: Yes: WNL Neurological: Yes: WNL, Alert, Oriented Temp Pulse Resp BP Pulse Ox 98.2 F 69 16 163/66 98 08/22/17 10:00 08/22/17 10:00 08/22/17 10:00 08/22/17 10:00 08/22/17 10:00 CBC, BMP 08/20/17 09:10 08/22/17 06:00 Current Medications Generic Name Dose Route Start Last Admin Trade Name Pedroq PRN Reason Stop Dose Admin Amlodipine Besylate 10 mg 08/21/17 10:00 08/22/17 09:26 Norvasc - PO 10 mg DAILY RUBEN Administration Atorvastatin Calcium 20 mg 08/20/17 22:00 08/21/17 22:06 Lipitor - PO 20 mg HS RUBEN Administration Carbidopa/Levodopa 1 each 08/20/17 22:00 08/22/17 05:40 Sinemet 25/100 - PO 1 each TID RUBEN Administration Colchicine 0.3 mg 08/21/17 10:00 08/22/17 09:26 Colcrys - PO 0.3 mg DAILY RUBEN Administration Insulin Aspart 1 vial 08/20/17 16:30 08/22/17 12:11 Novolog Vial Sliding Scale - SQ Not Given ACHS [facility] Protocol Insulin Detemir 30 units 08/20/17 22:00 08/21/17 23:20 Levemir Vial SQ 30 units HS RUBEN Administration Levothyroxine Sodium 100 mcg 08/21/17 07:00 08/22/17 06:08 Synthroid - PO 100 mcg DAILY@0700 RUBEN Administration Pantoprazole Sodium 40 mg 08/21/17 10:00 08/22/17 09:25 Protonix - PO 40 mg DAILY RUBEN Administration Rivastigmine Tartrate 1.5 mg 08/20/17 22:00 08/22/17 09:30 Exelon (Nf) - PO 1.5 mg BID RUBEN Administration Valsartan 160 mg 08/21/17 10:00 08/22/17 09:26 Diovan - PO 160 mg DAILY RUBEN Administration h/o factor 7 deficiency---elevated PT --- h/o factor VII deficiency, diagnosed as an adult , few yrs. ago. No h/o spontaneous bleeding. She is followed by Carrington Frederick at [facility] and saw him 3 weeks ago, will d/w him repeat factor VII Level--pending--determines the symptoms most of the time per cardiology-- DAPT---plavix duration depending on the stent--?can do BMS CKD: per primary
[2017-08-22] MEDS: ATORVASTATIN CA 20 MG TABLET (FP) PO SCH (21:44)
[2017-08-22] MEDS: INSULIN (LEVEMIR) 100 UNITS/ML UNITS SQ SCH (21:44)
[2017-08-22] MEDS ORDERED: INSULIN (NOVOLOG) ASPART 100 UNITS/ML 10ML VIAL SQ ONE (22:01)
[2017-08-23] MEDS: CARBIDOPA/LEVODOPA 25/100 TABLET (FP) PO SCH ×3 (05:44→21:29)
[2017-08-23] MEDS: LEVOTHYROXINE NA 100 MCG TABLET (FP) PO SCH (06:13)
[2017-08-23] MEDS: INSULIN SLIDING SCALE (NOVOLOG) 1 VIAL SQ SCH ×4 (06:13→21:29)
[2017-08-23] MEDS: PANTOPRAZOLE 40 MG TABLET (FP) PO SCH (09:05)
[2017-08-23] MEDS: amLODIPine BESYLATE 10 MG TABLET (FP) PO SCH (09:05)
[2017-08-23] MEDS: RIVASTIGMINE TARTRATE 1.5 MG CAPSULE PO SCH ×2 (09:05→21:29)
[2017-08-23] MEDS: VALSARTAN 160 MG TABLET (UD) PO SCH (09:05)
[2017-08-23 09:07] LABS: URINE APPEARANCE CLEAR; URINE BILIRUBIN NEGATIVE (<2.0 mg/dL); URINE COLOR STRAW; URINE GLUCOSE (UA) 1+ (NEGATIVE); URINE KETONE NEGATIVE (NEGATIVE); URINE LEUK ESTERASE NEGATIVE (NEGATIVE); URINE NITRITE NEGATIVE (NEGATIVE); URINE UROBILINOGEN NEGATIVE mg/dL (0.2-1.0)
[2017-08-23 09:17] LABS: URINE PROTEIN 3+ (NEGATIVE)
[2017-08-23 09:18] LABS: EPI CELLS RARE /HPF (FEW); URINE HYALINE CAST 3 /lpf; URINE MUCUS RARE
[2017-08-23] MEDS: COLCHICINE 0.6 MG TABLET (FP) PO SCH (10:15)
--- NOTE | 2017-08-23 10:56 | PN ---
Progress Note, Physician History of Present Illness: 71 yo F with a PMHx of HTN, HLD, DM who presents to the ED with chest pain today. Pain was in her L side of chest, sudden in onset, lasted for 10min , got better itself, radiated to l shoulder, Not associated with sob, palpitations, dizziness, change in vision, headache. Denies nausea, vomiting and diaphoresis. In ED bryn was found to have HTN emergancy with troponemia and william bp 227/84 PMH parkinson's disease chronic renal insufficiency. baseline creatinine level 2 chest pain palpitations diabetes hypertension factor 7 deficiency - no DAPT as per recent hem consult / RED heart murmur mild left carotid bruit morbid obesity Non-compliance with medical treatment. positive MIBI ST for lateral ischemia - awaiting. c. cath - Current Medication List Current Medications: Active Medications Amlodipine Besylate (Norvasc -) 10 mg PO DAILY [facility] Last Admin: 08/23/17 09:05 Dose: 10 mg Atorvastatin Calcium (Lipitor -) 20 mg PO [facility] Last Admin: 08/22/17 21:44 Dose: 20 mg Carbidopa/Levodopa (Sinemet 25/100 -) 1 each PO TID [facility] Last Admin: 08/23/17 05:44 Dose: 1 each Colchicine (Colcrys -) 0.3 mg PO DAILY [facility] Last Admin: 08/23/17 10:15 Dose: 0.3 mg Insulin Aspart (Novolog Vial Sliding Scale -) 1 vial SQ [facility]; Protocol Last Admin: 08/23/17 06:13 Dose: Not Given Insulin Detemir (Levemir Vial) 30 units SQ [facility] Last Admin: 08/22/17 21:44 Dose: 30 units Levothyroxine Sodium (Synthroid -) 100 mcg PO DAILY@0700 [facility] Last Admin: 08/23/17 06:13 Dose: 100 mcg Pantoprazole Sodium (Protonix -) 40 mg PO DAILY [facility] Last Admin: 08/23/17 09:05 Dose: 40 mg Rivastigmine Tartrate (Exelon (Nf) -) 1.5 mg PO BID [facility] Last Admin: 08/23/17 09:05 Dose: 1.5 mg Valsartan (Diovan -) 160 mg PO DAILY [facility] Last Admin: 08/23/17 09:05 Dose: 160 mg - Objective Vital Signs: Vital Signs Temperature 98 F 06/20/18 09:00 Pulse Rate 80 08/23/17 09:00 Respiratory Rate 80 H 08/23/17 09:00 Blood Pressure 167/78 08/23/17 09:00 O2 Sat by Pulse Oximetry (%) 97 08/23/17 10:00 Eyes: Yes: WNL, Conjunctiva Clear, EOM Intact HENT: Yes: WNL, Atraumatic, Normocephalic Neck: Yes: WNL, Supple, Trachea Midline Cardiovascular: Yes: WNL, Regular Rate and Rhythm Respiratory: Yes: WNL, Regular, CTA Bilaterally Gastrointestinal: Yes: WNL, Normal Bowel Sounds Genitourinary: Yes: WNL Musculoskeletal: Yes: WNL Extremities: Yes: WNL Edema: No Integumentary: Yes: WNL Neurological: Yes: WNL, Alert, Oriented ...Motor Strength: WNL Psychiatric: Yes: WNL Labs: CBC, BMP 08/20/17 09:10 08/22/17 06:00 INR, PTT INR 1.50 (0.82-1.09) H 08/22/17 06:00 Problem List - Problems (1) Chest pain Code(s): R07.9 - CHEST PAIN, UNSPECIFIED Qualifiers: Chest pain type: unspecified Qualified Code(s): R07.9 - Chest pain, unspecified (2) Elevated troponin Code(s): R74.8 - ABNORMAL LEVELS OF OTHER SERUM ENZYMES (3) Hypertensive urgency Code(s): I16.0 - HYPERTENSIVE URGENCY (4) Chronic GERD Code(s): K21.9 - GASTRO-ESOPHAGEAL REFLUX DISEASE WITHOUT ESOPHAGITIS (5) DVT prophylaxis Code(s): [id number] - (6) Edema Code(s): R60.9 - EDEMA, UNSPECIFIED (7) GERD (gastroesophageal reflux disease) Code(s): K21.9 - GASTRO-ESOPHAGEAL REFLUX DISEASE WITHOUT ESOPHAGITIS (8) H/O hernia repair Code(s): Z98.89 - OTHER SPECIFIED POSTPROCEDURAL STATES * DO NOT USE * (9) Incisional hernia, incarcerated Code(s): K43.0 - INCISIONAL HERNIA WITH OBSTRUCTION, WITHOUT GANGRENE (10) Palpitations Code(s): R00.2 - PALPITATIONS (11) S/P hernia repair Code(s): Z98.89 - OTHER SPECIFIED POSTPROCEDURAL STATES * DO NOT USE *; Z87.19 - PERSONAL HISTORY OF OTHER DISEASES OF THE DIGESTIVE SYSTEM (12) Ventral hernia with obstruction Code(s): K43.6 - OTHER AND UNSP VENTRAL HERNIA WITH OBSTRUCTION, W/O GANGRENE (13) CKD (chronic kidney disease) Code(s): N18.9 - CHRONIC KIDNEY DISEASE, UNSPECIFIED (14) DM2 (diabetes mellitus, type 2) Code(s): E11.9 - TYPE 2 DIABETES MELLITUS WITHOUT COMPLICATIONS Qualifiers: Diabetes mellitus shot core drill operator insulin use: with shot core drill operator use Diabetes mellitus complication status: with hyperglycemia Qualified Code(s): E11.65 - Type 2 diabetes mellitus with hyperglycemia (15) HTN (hypertension) Code(s): I10 - ESSENTIAL (PRIMARY) HYPERTENSION Qualifiers: Hypertension type: essential hypertension Qualified Code(s): I10 - Essential (primary) hypertension (16) Hyperlipidemia Code(s): E78.5 - HYPERLIPIDEMIA, UNSPECIFIED (17) Hypothyroidism Code(s): E03.9 - HYPOTHYROIDISM, UNSPECIFIED Assessment/Plan - Problems (1) Elevated troponin Assessment/Plan: + stress MIBI; awaits clearance from hematology (regarding Factor 7 deficiency and abiliity to be on dual platelets for at least one month if bare-metal coronary stent required). c. cath /BMS planned for tomorrow at [facility] Code(s): R74.8 - ABNORMAL LEVELS OF OTHER SERUM ENZYMES (2) Hypertensive urgency Assessment/Plan: on Diovan and amlodipine; f/u BP serially. Code(s): I16.0 - HYPERTENSIVE URGENCY (3) GERD (gastroesophageal reflux disease) Code(s): K21.9 - GASTRO-ESOPHAGEAL REFLUX DISEASE WITHOUT ESOPHAGITIS (4) Palpitations Code(s): R00.2 - PALPITATIONS (5) DM2 (diabetes mellitus, type 2) Code(s): E11.9 - TYPE 2 DIABETES MELLITUS WITHOUT COMPLICATIONS Qualifiers: Diabetes mellitus [facility] insulin use: with shot core drill operator use Diabetes mellitus complication status: with hyperglycemia Qualified Code(s): E11.65 - Type 2 diabetes mellitus with hyperglycemia (6) Hyperlipidemia Assessment/Plan: on statin; modify diet; increase exercise (once coronary artery status is known) . Code(s): E78.5 - HYPERLIPIDEMIA, UNSPECIFIED (7) Hypothyroidism Assessment/Plan: TSH 7.7; f/u TFTs. On synthroid. Code(s): E03.9 - HYPOTHYROIDISM, UNSPECIFIED (8) Factor VII deficiency Assessment/Plan: f/u with staff sonographer. Code(s): D68.2 - HEREDITARY DEFICIENCY OF OTHER CLOTTING FACTORS (9) Gout Code(s): M10.9 - GOUT, UNSPECIFIED
--- NOTE | 2017-08-23 11:02 | PN ---
Progress Note, Physician History of Present Illness: pulmonary alert,feeling better,-sob,-cp - Current Medication List Current Medications: Active Medications Amlodipine Besylate (Norvasc -) 10 mg PO DAILY [facility] Last Admin: 08/23/17 09:05 Dose: 10 mg Atorvastatin Calcium (Lipitor -) 20 mg PO HS [facility] Last Admin: 08/22/17 21:44 Dose: 20 mg Carbidopa/Levodopa (Sinemet 25/100 -) 1 each PO TID [facility] Last Admin: 08/23/17 05:44 Dose: 1 each Colchicine (Colcrys -) 0.3 mg PO DAILY [facility] Last Admin: 08/23/17 10:15 Dose: 0.3 mg Insulin Aspart (Novolog Vial Sliding Scale -) 1 vial SQ [facility]; Protocol Last Admin: 08/23/17 06:13 Dose: Not Given Insulin Detemir (Levemir Vial) 30 units SQ [facility] Last Admin: 08/22/17 21:44 Dose: 30 units Levothyroxine Sodium (Synthroid -) 100 mcg PO DAILY@0700 [facility] Last Admin: 08/23/17 06:13 Dose: 100 mcg Pantoprazole Sodium (Protonix -) 40 mg PO DAILY [facility] Last Admin: 08/23/17 09:05 Dose: 40 mg Rivastigmine Tartrate (Exelon (Nf) -) 1.5 mg PO BID [facility] Last Admin: 08/23/17 09:05 Dose: 1.5 mg Valsartan (Diovan -) 160 mg PO DAILY [facility] Last Admin: 08/23/17 09:05 Dose: 160 mg - Objective Vital Signs: Vital Signs Temperature 98 F 08/23/17 09:00 Pulse Rate 80 08/23/17 09:00 Respiratory Rate 80 H 08/23/17 09:00 Blood Pressure 167/78 08/23/17 09:00 O2 Sat by Pulse Oximetry (%) 97 08/23/17 10:00 Constitutional: Yes: Well Nourished, Calm Eyes: Yes: WNL HENT: Yes: WNL Neck: Yes: WNL Cardiovascular: Yes: Regular Rate and Rhythm, S1, S2 Respiratory: Yes: CTA Bilaterally Gastrointestinal: Yes: Normal Bowel Sounds, Soft Extremities: Yes: WNL Edema: No Labs: CBC, BMP 08/20/17 09:10 Problem List - Problems (1) Parkinsons Code(s): G20 - PARKINSON'S DISEASE (2) Chest pain Code(s): R07.9 - CHEST PAIN, UNSPECIFIED Qualifiers: Chest pain type: unspecified Qualified Code(s): R07.9 - Chest pain, unspecified (3) Elevated troponin Code(s): R74.8 - ABNORMAL LEVELS OF OTHER SERUM ENZYMES (4) Hypertensive urgency Code(s): I16.0 - HYPERTENSIVE URGENCY (5) DVT prophylaxis Code(s): [id number] - (6) Edema Code(s): R60.9 - EDEMA, UNSPECIFIED (7) CKD (chronic kidney disease) Code(s): N18.9 - CHRONIC KIDNEY DISEASE, UNSPECIFIED (8) DM2 (diabetes mellitus, type 2) Code(s): E11.9 - TYPE 2 DIABETES MELLITUS WITHOUT COMPLICATIONS Qualifiers: Diabetes mellitus [employer] insulin use: with cash[employer] runners use Diabetes mellitus complication status: with hyperglycemia Qualified Code(s): E11.65 - Type 2 diabetes mellitus with hyperglycemia (9) HTN (hypertension) Code(s): I10 - ESSENTIAL (PRIMARY) HYPERTENSION Qualifiers: Hypertension type: essential hypertension Qualified Code(s): I10 - Essential (primary) hypertension (10) Hyperlipidemia Code(s): E78.5 - HYPERLIPIDEMIA, UNSPECIFIED Assessment/Plan IMP CHEST PAIN SYNDROME LIKELY ACS improved HYPERTENSIVE URGENCY IMPROVED +TROPONINS FACTOR 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 DEFICIENCY PARKINSONS CKD GOUT DM PLAN TITRATE BP MEDS CARDIAC CATH TOMORROW DVT PROPHYLAXIS MONITOR LYTES/RENAL FUNCTION DR FERRIS Problem List - Problems (1) Parkinsons Code(s): G20 - PARKINSON'S DISEASE (2) Chest pain Code(s): R07.9 - CHEST PAIN, UNSPECIFIED Qualifiers: Chest pain type: unspecified Qualified Code(s): R07.9 - Chest pain, unspecified (3) Elevated troponin Code(s): R74.8 - ABNORMAL LEVELS OF OTHER SERUM ENZYMES (4) Hypertensive urgency Code(s): I16.0 - HYPERTENSIVE URGENCY (5) DVT prophylaxis Code(s): [id number] - (6) Edema Code(s): R60.9 - EDEMA, UNSPECIFIED (7) CKD (chronic kidney disease) Code(s): N18.9 - CHRONIC KIDNEY DISEASE, UNSPECIFIED (8) DM2 (diabetes mellitus, type 2) Code(s): E11.9 - TYPE 2 DIABETES MELLITUS WITHOUT COMPLICATIONS Qualifiers: Diabetes mellitus [employer] insulin use: with prison use Diabetes mellitus complication status: with hyperglycemia Qualified Code(s): E11.65 - Type 2 diabetes mellitus with hyperglycemia (9) HTN (hypertension) Code(s): I10 - ESSENTIAL (PRIMARY) HYPERTENSION Qualifiers: Hypertension type: essential hypertension Qualified Code(s): I10 - Essential (primary) hypertension (10) Hyperlipidemia Code(s): E78.5 - HYPERLIPIDEMIA, UNSPECIFIED
--- NOTE | 2017-08-23 15:49 | PN ---
Progress Note (short form) - Note Progress Note: Pt seen and examined factor 7 is 29 Constitutional: Yes: Well Nourished, No Distress, Calm Eyes: Yes: WNL, Conjunctiva Clear, EOM Intact HENT: Yes: WNL, Atraumatic, Normocephalic Neck: Yes: WNL, Supple, Trachea Midline Respiratory: Yes: WNL, Regular, CTA Bilaterally Gastrointestinal: Yes: WNL, Normal Bowel Sounds Cardiovascular: Yes: WNL, Regular Rate and Rhythm Heart Sounds: Yes: S1, S2 Murmur: Yes: Systolic Murmur Musculoskeletal: Yes: WNL Extremities: Yes: WNL Integumentary: Yes: WNL Neurological: Yes: WNL, Alert, Oriented Temp Pulse Resp BP Pulse Ox 98.2 F 69 16 163/66 98 08/22/17 10:00 08/22/17 10:00 08/22/17 10:00 08/22/17 10:00 08/22/17 10:00 CBC, BMP 08/20/17 09:10 08/22/17 06:00 Current Medications Generic Name Dose Route Start Last Admin Trade Name Samuel PRN Reason Stop Dose Admin Amlodipine Besylate 10 mg 08/21/17 10:00 08/22/17 09:26 Norvasc - PO 10 mg DAILY [facility] Administration Atorvastatin Calcium 20 mg 08/20/17 22:00 08/21/17 22:06 Lipitor - PO 20 mg HS RUBEN Administration Carbidopa/Levodopa 1 each 08/20/17 22:00 08/22/17 05:40 Sinemet 25/100 - PO 1 each TID [facility] Administration Colchicine 0.3 mg 08/21/17 10:00 08/22/17 09:26 Colcrys - PO 0.3 mg DAILY [facility] Administration Insulin Aspart 1 vial 08/20/17 16:30 08/22/17 12:11 Novolog Vial Sliding Scale - SQ Not Given [facility] Protocol Insulin Detemir 30 units 08/20/17 22:00 08/21/17 23:20 Levemir Vial SQ 30 units HS [facility] Administration Levothyroxine Sodium 100 mcg 08/21/17 07:00 08/22/17 06:08 Synthroid - PO 100 mcg DAILY@0700 [facility] Administration Pantoprazole Sodium 40 mg 08/21/17 10:00 06/19/18 09:25 Protonix - PO 40 mg DAILY [facility] Administration Rivastigmine Tartrate 1.5 mg 08/20/17 22:00 08/22/17 09:30 Exelon (Nf) - PO 1.5 mg BID [facility] Administration Valsartan 160 mg 08/21/17 10:00 08/22/17 09:26 Diovan - PO 160 mg DAILY [facility] Administration h/o factor 7 deficiency---elevated PT --- h/o factor VII deficiency, diagnosed as an adult , few yrs. ago. No h/o spontaneous bleeding. She is followed by Carrington Frederick at [facility] and saw him 3 weeks ago, will d/w him factor VII Level--29 (>20). cardiology note reviewed. DAPT Tx noted. recommend that pt should be seen by [employer] to follow through the hospitalization whichever center she goes to (need to monitor PT/FVII levels) monitor closely for bleeding D/w (pts primary community center director too) CKD: per primary
[2017-08-23] MEDS ORDERED: SODIUM CHLORIDE 0.45% 1,000 ML IV SCH (16:30)
--- NOTE | 2017-08-23 16:49 | PN ---
Physical Exam: SUBJECTIVE: Patient seen and examined, feels well, in no acute distress. OBJECTIVE: cardiac cath likely tomorrow Vital Signs Period Temp Pulse Resp BP Sys/Navas Pulse Ox Last 24 Hr 97.9 F-98.3 F 70-85 16-80 155-175/63-86 97-97 GENERAL: The patient is awake, alert, and fully oriented, in no acute distress. HEAD: Normal with no signs of trauma. EYES: PERRL, extraocular movements intact, sclera anicteric, conjunctiva clear. No ptosis. ENT: Ears normal, nares patent, oropharynx clear without exudates, moist mucous membranes. NECK: Trachea midline, full range of motion, supple. LUNGS: Breath sounds equal, clear to auscultation bilaterally HEART: irregular heart rate ABDOMEN: Soft, nontender, nondistended, normoactive bowel sounds, no guarding, no rebound, no hepatosplenomegaly, no masses. NEUROLOGICAL: Normal speech, gait not observed. PSYCH: Normal mood, normal affect. SKIN: Warm, dry, normal turgor, no rashes or lesions noted Laboratory Results - last 24 hr 08/22/17 08/22/17 08/22/17 06:00 16:39 21:31 Factor VII 29 L POC Glucometer 252 177 Urine Color Urine Appearance Urine pH Ur Specific [place] Urine Protein Urine Glucose (UA) Urine Ketones Urine Blood Urine Nitrite Urine Bilirubin Urine Urobilinogen Ur Leukocyte Esterase Urine WBC (Auto) Urine RBC (Auto) Ur Epithelial Cells Hyaline Casts Urine Mucus 08/23/17 08/23/17 08/23/17 02:35 05:42 06:12 Factor VII POC Glucometer 60 101 Urine Color Straw Urine Appearance Clear Urine pH 6.0 Ur Specific [place] 1.008 Urine Protein 3+ H Urine Glucose (UA) 1+ H Urine Ketones Negative Urine Blood Negative Urine Nitrite Negative Urine Bilirubin Negative Urine Urobilinogen Negative Ur Leukocyte Esterase Negative Urine WBC (Auto) 17 Urine RBC (Auto) 1 Ur Epithelial Cells Rare Hyaline Casts 3 Urine Mucus Rare 08/23/17 12:00 Factor VII POC Glucometer 72 Urine Color Urine Appearance Urine pH Ur Specific [place] Urine Protein Urine Glucose (UA) Urine Ketones Urine Blood Urine Nitrite Urine Bilirubin Urine Urobilinogen Ur Leukocyte Esterase Urine WBC (Auto) Urine RBC (Auto) Ur Epithelial Cells Hyaline Casts Urine Mucus Active Medications Generic Name Dose Route Start Last Admin Trade Name Pedroq PRN Reason Stop Dose Admin Amlodipine Besylate 10 mg 08/21/17 10:00 08/23/17 09:05 Norvasc - PO 10 mg DAILY [facility] Administration Atorvastatin Calcium 20 mg 08/20/17 22:00 08/22/17 21:44 Lipitor - PO 20 mg HS [facility]UBEN Administration Carbidopa/Levodopa 1 each 08/20/17 22:00 08/23/17 13:50 Sinemet 25/100 - PO 1 each TID [facility] Administration Colchicine 0.3 mg 08/21/17 10:00 08/23/17 10:15 Colcrys - PO 0.3 mg DAILY [facility] Administration Sodium Chloride 1,000 mls @ 100 mls/hr 08/23/17 16:30 1/2 Normal Saline IV ASDIR [facility] Insulin Aspart 1 vial 08/20/17 16:30 08/23/17 12:01 Novolog Vial Sliding Scale - SQ Not Given [facility] Protocol Insulin Detemir 30 units 08/20/17 22:00 08/22/17 21:44 Levemir Vial SQ 30 units HS [facility] Administration Levothyroxine Sodium 100 mcg 08/21/17 07:00 08/23/17 06:13 Synthroid - PO 100 mcg DAILY@0700 [facility] Administration Pantoprazole Sodium 40 mg 08/21/17 10:00 08/23/17 09:05 Protonix - PO 40 mg DAILY [facility] Administration Rivastigmine Tartrate 1.5 mg 08/20/17 22:00 08/23/17 09:05 Exelon (Nf) - PO 1.5 mg BID [facility] Administration Valsartan 160 mg 08/21/17 10:00 08/23/17 09:05 Diovan - PO 160 mg DAILY [facility] Administration ASSESSMENT/PLAN: Patient is 71 year old female with significant past medical history of HTN, diabetes, HLD, gout, parkinsons Disease and Factor 7 deficiency. She comes to the ED on 08/20/17 with hypertensive emergency and chest pain. Card: Hypertensive urgency, resolved BP stable, on diovan, Norvasc. Continue to monitor. Elevated trops Chest pain, rule out ACS Denies chest pain, no shortness of breath. s/p labetolol drip. Echo shows moderate TR, pulmonic valvular regurg. trace MR, mild aortic regurg, Has factor 5 def, unable to anticoagulate or give ASA at this time. Hematology following. For possible transfer tomorrow to [place] for cardiac cath. HLD, chronic On Lipitor Endocrine Diabetes mellitus Control blood sugars, BGMs. 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 Renal consult Neuro Parkinsons, chronic On Sinemet FEN tolerating PO monitor labs low salt diet No anticoag secondary to factor 5 def. full code
[2017-08-23] MEDS ORDERED: PT OWN MED DRAWER 7, Y5N ONE (21:09)
[2017-08-23] MEDS: INSULIN (LEVEMIR) 100 UNITS/ML UNITS SQ SCH (21:29)
[2017-08-23] MEDS: ATORVASTATIN CA 20 MG TABLET (FP) PO SCH (21:29)
[2017-08-24] MEDS: INSULIN SLIDING SCALE (NOVOLOG) 1 VIAL SQ SCH ×2 (06:25→11:51)
[2017-08-24] MEDS: LEVOTHYROXINE NA 100 MCG TABLET (FP) PO SCH (06:36)
[2017-08-24] MEDS: CARBIDOPA/LEVODOPA 25/100 TABLET (FP) PO SCH ×3 (06:36→14:25)
--- NOTE | 2017-08-24 08:30 | PN ---
Physical Exam: SUBJECTIVE: Patient seen and examined at the bedside. Awake alert, denies chest pain or shortness of breath. No acute events overnight. OBJECTIVE: Last recorded BP 156/88, morning meds not yet due to be given Awaiting decision regarding potential cardiac cath from cardiology Factor VII def, followed by hematology here Vital Signs Period Temp Pulse Resp BP Sys/Navas Pulse Ox Last 24 Hr 98 F-98.5 F 76-87 18-80 143-167/58-88 97-99 GENERAL: The patient is awake, alert, and fully oriented, in no acute distress. HEAD: Normal with no signs of trauma. EYES: PERRL, extraocular movements intact, sclera anicteric, conjunctiva clear. No ptosis. ENT: Ears normal, nares patent, oropharynx clear without exudates, moist mucous membranes. NECK: Trachea midline, full range of motion, supple. HEART: SR on shelter monitor ABDOMEN: Soft, nontender, nondistended, normoactive bowel sounds, no guarding, no rebound, no hepatosplenomegaly, no masses. EXTREMITIES: no edema. NEUROLOGICAL: Normal speech, gait not observed. PSYCH: Normal mood, normal affect. SKIN: Warm, dry, normal turgor, no rashes or lesions noted Laboratory Results - last 24 hr 08/22/17 08/23/17 08/23/17 06:00 06:12 12:00 Factor VII 29 L POC Glucometer 72 Urine Color Straw Urine Appearance Clear Urine pH 6.0 Ur Specific [place] 1.008 Urine Protein 3+ H Urine Glucose (UA) 1+ H Urine Ketones Negative Urine Blood Negative Urine Nitrite Negative Urine Bilirubin Negative Urine Urobilinogen Negative Ur Leukocyte Esterase Negative Urine WBC (Auto) 17 Urine RBC (Auto) 1 Ur Epithelial Cells Rare Hyaline Casts 3 Urine Mucus Rare 08/23/17 08/23/17 08/24/17 17:12 21:27 06:19 Factor VII POC Glucometer 293 215 139 Urine Color Urine Appearance Urine pH Ur Specific [place] Urine Protein Urine Glucose (UA) Urine Ketones Urine Blood Urine Nitrite Urine Bilirubin Urine Urobilinogen Ur Leukocyte Esterase Urine WBC (Auto) Urine RBC (Auto) Ur Epithelial Cells Hyaline Casts Urine Mucus Active Medications Generic Name Dose Route Start Last Admin Trade Name Freq PRN Reason Stop Dose Admin Amlodipine Besylate 10 mg 08/21/17 10:00 08/23/17 09:05 Norvasc - PO 10 mg DAILY RUBEN Administration Atorvastatin Calcium 20 mg 08/20/17 22:00 08/23/17 21:29 Lipitor - PO 20 mg HS RUBEN Administration Carbidopa/Levodopa 1 each 08/20/17 22:00 08/24/17 06:36 Sinemet 25/100 - PO 1 each TID RUBEN Administration Colchicine 0.3 mg 08/21/17 10:00 08/23/17 10:15 Colcrys - PO 0.3 mg DAILY RUB[facility] Administration Sodium Chloride 1,000 mls @ 100 mls/hr 08/23/17 16:30 08/23/17 17:09 1/2 Normal Saline IV 100 mls/hr ASDIR RUBEN Administration Insulin Aspart 1 vial 08/20/17 16:30 08/24/17 06:25 Novolog Vial Sliding Scale - SQ Not Given [facility] Protocol Insulin Detemir 30 units 08/20/17 22:00 08/23/17 21:29 Levemir Vial SQ 30 units HS RUBEN Administration Levothyroxine Sodium 100 mcg 08/21/17 07:00 08/24/17 06:36 Synthroid - PO 100 mcg DAILY@0700 RUBEN Administration Pantoprazole Sodium 40 mg 08/21/17 10:00 08/23/17 09:05 Protonix - PO 40 mg DAILY RUBEN Administration Rivastigmine Tartrate 1.5 mg 08/20/17 22:00 08/23/17 21:29 Exelon (Nf) - PO 1.5 mg BID RUBEN Administration Valsartan 160 mg 08/21/17 10:00 08/23/17 09:05 Diovan - PO 160 mg DAILY RUBEN Administration ASSESSMENT/PLAN:
[2017-08-24] MEDS: COLCHICINE 0.6 MG TABLET (FP) PO SCH (09:17)
[2017-08-24] MEDS: PANTOPRAZOLE 40 MG TABLET (FP) PO SCH (09:17)
[2017-08-24] MEDS: amLODIPine BESYLATE 10 MG TABLET (FP) PO SCH (09:17)
[2017-08-24] MEDS: VALSARTAN 160 MG TABLET (UD) PO SCH (09:17)
[2017-08-24] MEDS: RIVASTIGMINE TARTRATE 1.5 MG CAPSULE PO SCH (09:18)
[2017-08-24 10:16] LABS: BASO % 0.3 % (0-2.0); EOS % 0.8 % (0-4.5); HEMATOCRIT 31.2 % (32.4-45.2); HEMOGLOBIN 10.5 GM/dL (10.7-15.3); LYMPH % 26.3 % (8-40); MCH 28.3 pg (25.7-33.7); MCHC 33.7 g/dl (32.0-36.0); MEAN CELL VOLUME 84.1 fl (80-96); MEAN PLT VOLUME 7.3 fl (7.5-11.1); MONO % 7.2 % (3.8-10.2); NEUT % 65.4 % (42.8-82.8); PLATELET COUNT 205 K/MM3 (134-434); RBC 3.71 M/mm3 (3.60-5.2); RDW 16.2 % (11.6-15.6); WHITE BLOOD COUNT 5.5 K/mm3 (4.0-10.0)
[2017-08-24 10:42] LABS: CHLORIDE 104 mmol/L (98-107); POTASSIUM 4.7 mmol/L (3.5-5.1); SODIUM 137 mmol/L (136-145)
[2017-08-24 11:00] LABS: ALBUMIN 2.6 g/dl (3.4-5.0); ALK PHOS 149 U/L (45-117); ANION GAP 9 (8-16); BILIRUBIN,TOTAL 0.2 mg/dL (0.2-1.0); BLOOD UREA NITROGEN 38 mg/dL (7-18); CALCIUM 9.2 mg/dL (8.5-10.1); CO2 24 mmol/L (21-32); CREATININE 2.3 mg/dL (0.55-1.02); GLUCOSE,RANDOM 186 mg/dL (74-106); MAGNESIUM 1.7 mg/dL (1.8-2.4); SGOT/AST 13 U/L (15-37); SGPT/ALT 8 U/L (12-78); TOT PROT 6.4 g/dl (6.4-8.2)
--- NOTE | 2017-08-24 11:06 | PN ---
Progress Note, Physician History of Present Illness: The patient is a 71 year old black female with a history of CAD, HTN, HLD, DM, diastolic CHF, who presents for evaluation of chest pain and palpitations. The patient reports onset of palpitation with associated chest tightness this evening prompting her presentation to the ED for further evaluation. She notes that her symptoms have greatly improved since presentation to the ED. She reports similar symptoms in the past with a negative stress test 3 months ago. She otherwise denies fevers, chills, SOB, cough, nausea, vomiting, abdominal pain, or changes with urination or bowel movements. - Current Medication List Current Medications: Active Medications Amlodipine Besylate (Norvasc -) 10 mg PO DAILY [facility] Last Admin: 08/24/17 09:17 Dose: 10 mg Atorvastatin Calcium (Lipitor -) 20 mg PO HS [facility] Last Admin: 08/23/17 21:29 Dose: 20 mg Carbidopa/Levodopa (Sinemet 25/100 -) 1 each PO TID [facility] Last Admin: 08/24/17 06:36 Dose: 1 each Colchicine (Colcrys -) 0.3 mg PO DAILY [facility] Last Admin: 08/24/17 09:17 Dose: 0.3 mg Sodium Chloride (1/2 Normal Saline) 1,000 mls @ 100 mls/hr IV ASDIR [facility] Last Admin: 08/23/17 17:09 Dose: 100 mls/hr Insulin Aspart (Novolog Vial Sliding Scale -) 1 vial SQ [facility]; Protocol Last Admin: 08/24/17 06:25 Dose: Not Given Insulin Detemir (Levemir Vial) 30 units SQ [facility] Last Admin: 08/23/17 21:29 Dose: 30 units Levothyroxine Sodium (Synthroid -) 100 mcg PO DAILY@0700 [facility] Last Admin: 08/24/17 06:36 Dose: 100 mcg Pantoprazole Sodium (Protonix -) 40 mg PO DAILY [facility] Last Admin: 08/24/17 09:17 Dose: 40 mg Rivastigmine Tartrate (Exelon (Nf) -) 1.5 mg PO BID [facility] Last Admin: 08/24/17 09:18 Dose: 1.5 mg Valsartan (Diovan -) 160 mg PO DAILY [facility] Last Admin: 08/24/17 09:17 Dose: 160 mg - Objective Vital Signs: Vital Signs Temperature 98.5 F 06/21/18 05:55 Pulse Rate 76 08/24/17 05:55 Respiratory Rate 20 08/24/17 05:55 Blood Pressure 156/88 08/24/17 05:55 O2 Sat by Pulse Oximetry (%) 99 08/23/17 21:05 Labs: CBC, BMP 08/24/17 09:50 08/24/17 09:50 INR, PTT INR 1.50 (0.82-1.09) H 08/22/17 06:00 Problem List - Problems (1) Elevated troponin Assessment/Plan: + stress MIBI; cleared from hematologic standpoint (Factor 7 deficienty) to take dual antiplatelet therapy, if necessary for stent. Will transer to [facility] today for coronary angiogram by Dr. Vikash Ibarra. Code(s): R74.8 - ABNORMAL LEVELS OF OTHER SERUM ENZYMES (2) Hypertensive urgency Assessment/Plan: on Diovan and amlodipine; f/u BP serially. Code(s): I16.0 - HYPERTENSIVE URGENCY (3) GERD (gastroesophageal reflux disease) Code(s): K21.9 - GASTRO-ESOPHAGEAL REFLUX DISEASE WITHOUT ESOPHAGITIS (4) Palpitations Code(s): R00.2 - PALPITATIONS (5) DM2 (diabetes mellitus, type 2) Code(s): E11.9 - TYPE 2 DIABETES MELLITUS WITHOUT COMPLICATIONS Qualifiers: Diabetes mellitus supervisor intermediates insulin use: with usp use Diabetes mellitus complication status: with hyperglycemia Qualified Code(s): E11.65 - Type 2 diabetes mellitus with hyperglycemia (6) Hyperlipidemia Code(s): E78.5 - HYPERLIPIDEMIA, UNSPECIFIED (7) Hypothyroidism Code(s): E03.9 - HYPOTHYROIDISM, UNSPECIFIED (8) Factor VII deficiency Code(s): D68.2 - HEREDITARY DEFICIENCY OF OTHER CLOTTING FACTORS (9) Gout Code(s): M10.9 - GOUT, UNSPECIFIED
[2017-08-24 11:07] VITALS: BP 164/84; PULSE 77; TEMP 98
[2017-08-24] MEDS ORDERED: MAGNESIUM 1GM/D5W - 1 GM/100 ML IVPB IVPB ONE (12:00)
[2017-08-24] MEDS ORDERED: MAGNESIUM OXIDE 400 MG TABLET (FP) PO ONE (12:30)
--- NOTE | 2017-08-24 12:54 | PN ---
Progress Note (short form) - Note Progress Note: PULMONARY Denies shortness of breath or chest pain. For cardiac cath. Vital Signs Period Temp Pulse Resp BP Sys/Navas Pulse Ox Last 24 Hr 98 F-98.5 F 76-87 18-20 143-164/58-88 99 Gen: NAD in chair Heart: RRR Lung: decreased breath sounds at the bases Abd: soft, nontender Ext: no edema CBC, BMP 08/24/17 09:50 08/24/17 09:50 Active Medications Amlodipine Besylate (Norvasc -) 10 mg PO DAILY [facility] Last Admin: 08/24/17 09:17 Dose: 10 mg Atorvastatin Calcium (Lipitor -) 20 mg PO [facility] Last Admin: 08/23/17 21:29 Dose: 20 mg Carbidopa/Levodopa (Sinemet 25/100 -) 1 each PO TID [facility] Last Admin: 08/24/17 12:21 Dose: 1 each Colchicine (Colcrys -) 0.3 mg PO DAILY [facility] Last Admin: 08/24/17 09:17 Dose: 0.3 mg Sodium Chloride (1/2 Normal Saline) 1,000 mls @ 100 mls/hr IV ASDIR [facility] Last Admin: 08/23/17 17:09 Dose: 100 mls/hr Magnesium Sulfate/Dextrose (Magnesium 1gm/D5w -) 1 gm in 100 mls @ 100 mls/hr IVPB ONCE ONE Stop: 08/24/17 12:59 Last Admin: 08/24/17 12:20 Dose: 100 mls/hr Insulin Aspart (Novolog Vial Sliding Scale -) 1 vial SQ [facility]; Protocol Last Admin: 08/24/17 11:51 Dose: Not Given Insulin Detemir (Levemir Vial) 30 units SQ [facility] Last Admin: 08/23/17 21:29 Dose: 30 units Levothyroxine Sodium (Synthroid -) 100 mcg PO DAILY@0700 [facility] Last Admin: 08/24/17 06:36 Dose: 100 mcg Pantoprazole Sodium (Protonix -) 40 mg PO DAILY [facility] Last Admin: 08/24/17 09:17 Dose: 40 mg Rivastigmine Tartrate (Exelon (Nf) -) 1.5 mg PO BID [facility] Last Admin: 08/24/17 09:18 Dose: 1.5 mg Valsartan (Diovan -) 160 mg PO DAILY [facility] Last Admin: 08/24/17 09:17 Dose: 160 mg A/P Chest Pain resolved Hypertensive Urgency +Troponins CKD DM Parkinsons - for cardiac catheterization - BP control - O2 as needed - DVT prophylaxis
--- NOTE | 2017-08-24 14:30 | CONSULT ---
Consult Consult Specialty:: Nephrology ( Eleazar/ uSraj) Reason for Consultation:: Abnormal kidney functions - History of Present Illness Chief Complaint: The patient is a 71 year old AA female with a history of CAD, HTN, HLD, DM, diastolic CHF, who presented for evaluation of chest pain and palpitations. 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 Cardio/Vascular: Yes: HTN Pulmonary: Yes: Asthma (denies attacks, but ?has pumps at home) Gastrointestinal: Yes: GERD Hepatobiliary: Yes: Cholecystitis (s/p cholecystectomy) Renal/: Yes: Renal Inusuff Psych: Yes: Anxiety Rheumatology: Yes: Gout Endocrine: Yes: Diabetes Mellitus - Alcohol/Substance Use Hx Alcohol Use: No History of Substance Use: reports: None - Smoking History Smoking history: Former smoker Have you smoked in the past 12 months: No Aproximately how many cigarettes per day: 0 If you are a former smoker, when did you quit?: 1981 - Social History ADL: Independent Home Medications - Allergies Allergies/Adverse Reactions: Allergies Allergy/AdvReac Type Severity Reaction Status Date / Time No Known Drug Allergies Allergy Verified 08/19/17 23:34 - Home Medications Home Medications: Ambulatory Orders Insulin Glargine,Hum.rec.anlog [Lantus (10mL VIAL) -] 50 units SQ HS 07/26/15 Insulin Lispro [Humalog] 10 unit SQ TID 07/26/15 Levothyroxine [Synthroid -] 100 mcg PO DAILY 07/26/15 Metoprolol Succinate [Toprol XL -] 50 mg PO DAILY 07/26/15 Omeprazole [Prilosec] 40 mg PO DAILY 07/26/15 Carbidopa/Levodopa [Carbidopa-Levodopa 25-100 Tab] 1 each PO TID 05/15/16 Linagliptin [Tradjenta] 5 mg PO DAILY 05/15/16 Atorvastatin Ca [Lipitor] 20 mg PO HS #30 tablet 05/16/17 Colchicine 0.6 mg PO DAILY 05/16/17 Furosemide 20 mg PO DAILY 05/16/17 Rivastigmine Tartrate [Exelon (Nf) -] 1.5 mg PO BID 05/16/17 Amlodipine Besylate [Norvasc -] 10 mg PO DAILY #30 tablet 05/17/17 Valsartan 160 mg PO DAILY #30 tablet 05/17/17 Ramipril [Altace] 2.5 mg PO DAILY 08/21/17 Valsartan [Diovan] 160 mg PO DAILY 08/21/17 Family Disease History - Family Disease History Family History: Denies Family Disease History: Heart Disease: Father (NE in his 70s), Mother (?NE in her 70s), Sister (NE inher 60s) Review of Systems - Review of Systems Constitutional: reports: No Symptoms, Chills HENT: denies: Difficult Swallowing Neck: denies: Pain on Movement Cardiovascular: reports: Chest Pain, Palpitations, Shortness of Breath Respiratory: reports: SOB Gastrointestinal: denies: Abdominal Pain, Constipation, Vomiting Genitourinary: denies: Burning, Frequency Musculoskeletal: reports: Back Pain, Joint Swelling Integumentary: denies: Bruising Endocrine: denies: Excessive Sweating Physical Exam Vital Signs: Vital Signs Temperature 98 F 08/24/17 09:00 Pulse Rate 77 08/24/17 09:00 Respiratory Rate 18 08/24/17 09:00 Blood Pressure 164/84 08/24/17 09:00 O2 Sat by Pulse Oximetry (%) 99 08/23/17 21:05 Constitutional: Yes: Well Nourished, Calm Eyes: Yes: Conjunctiva Clear HENT: Yes: Normocephalic Neck: Yes: Trachea Midline Cardiovascular: Yes: Regular Rate and Rhythm, S1, S2 Respiratory: Yes: CTA Bilaterally, Diminished Gastrointestinal: Yes: Normal Bowel Sounds, Soft, Abdomen, Obese Renal/: No: Bladder Distention, CVA Tenderness - Left, CVA Tenderness - Right Extremities: No: Calf Tenderness Neurological: Yes: Alert, Oriented Labs: CBC, BMP 08/24/17 09:50 08/24/17 09:50 Problem List - Problems (1) Acute kidney failure Code(s): N17.9 - ACUTE KIDNEY FAILURE, UNSPECIFIED (2) Chest pain Code(s): R07.9 - CHEST PAIN, UNSPECIFIED Qualifiers: Chest pain type: unspecified Qualified Code(s): R07.9 - Chest pain, unspecified (3) Elevated troponin Code(s): R74.8 - ABNORMAL LEVELS OF OTHER SERUM ENZYMES (4) CKD (chronic kidney disease) Code(s): N18.9 - CHRONIC KIDNEY DISEASE, UNSPECIFIED (5) DM2 (diabetes mellitus, type 2) Code(s): E11.9 - TYPE 2 DIABETES MELLITUS WITHOUT COMPLICATIONS Qualifiers: Diabetes mellitus mcc insulin use: with terminal computer operator use Diabetes mellitus complication status: with hyperglycemia Qualified Code(s): E11.65 - Type 2 diabetes mellitus with hyperglycemia (6) HTN (hypertension) Code(s): I10 - ESSENTIAL (PRIMARY) HYPERTENSION Qualifiers: Hypertension type: essential hypertension Qualified Code(s): I10 - Essential (primary) hypertension (7) Hyperlipidemia Code(s): E78.5 - HYPERLIPIDEMIA, UNSPECIFIED (8) Hypothyroidism Code(s): E03.9 - HYPOTHYROIDISM, UNSPECIFIED Assessment/Plan 71 y/o female with h/o Hypertension, DM2, Coronary artery disease, HLD, admitted with chest pain and palpitai\tion. The patient has some underlying CKD, with acute azotemia, which most likely is Hemodynamic. Patient scheduled for transfer to [facility] [place] fro cardiac cath. Will follow as outpatient when she is released. Thanks again. Sandi yee MD
--- NOTE | 2017-08-24 14:38 | DS ---
Physical Exam: SUBJECTIVE: Patient seen and examined OBJECTIVE: Vital Signs Period Temp Pulse Resp BP Sys/Navas Pulse Ox Last 24 Hr 98 F-98.5 F 76-87 18-20 143-164/58-88 99 PHYSICAL EXAM GENERAL: The patient is awake, alert, and fully oriented, in no acute distress. HEAD: Normal with no signs of trauma. EYES: PERRL, extraocular movements intact, sclera anicteric, conjunctiva clear. ENT: Ears normal, nares patent, oropharynx clear without exudates, moist mucous membranes. NECK: Trachea midline, full range of motion, supple. LUNGS: Breath sounds equal, clear to auscultation bilaterally, no wheezes, no crackles, no accessory muscle use. HEART: Regular rate and rhythm, S1, S2 without murmur, rub or gallop. ABDOMEN: Soft, nontender, nondistended, normoactive bowel sounds, no guarding, no rebound, no hepatosplenomegaly, no masses. EXTREMITIES: 2+ pulses, warm, well-perfused, no edema. NEUROLOGICAL: Cranial nerves II through XII grossly intact. Normal speech, gait not observed. PSYCH: Normal mood, normal affect. SKIN: Warm, dry, normal turgor, no rashes or lesions noted. LABS Laboratory Results - last 24 hr 08/23/17 08/23/17 08/24/17 17:12 21:27 06:19 WBC RBC Hgb Hct MCV MCH MCHC RDW Plt Count MPV Absolute Neuts (auto) Neutrophils % Lymphocytes % Monocytes % Eosinophils % Basophils % Nucleated RBC % Sodium Potassium Chloride Carbon Dioxide Anion Gap BUN Creatinine Creat Clearance w eGFR POC Glucometer 293 215 139 Random Glucose Calcium Magnesium Total Bilirubin AST ALT Alkaline Phosphatase Total Protein Albumin 08/24/17 08/24/17 08/24/17 09:50 09:50 11:50 WBC 5.5 RBC 3.71 Hgb 10.5 L Hct 31.2 L MCV 84.1 MCH 28.3 MCHC 33.7 RDW 16.2 H Plt Count 205 MPV 7.3 L Absolute Neuts (auto) 3.6 Neutrophils % 65.4 Lymphocytes % 26.3 D Monocytes % 7.2 Eosinophils % 0.8 Basophils % 0.3 Nucleated RBC % 0 Sodium 137 Potassium 4.7 Chloride 104 Carbon Dioxide 24 Anion Gap 9 BUN 38 H Creatinine 2.3 H Creat Clearance w eGFR 20.96 POC Glucometer 165 Random Glucose 186 H Calcium 9.2 Magnesium 1.7 L Total Bilirubin 0.2 AST 13 L ALT 8 L Alkaline Phosphatase 149 H Total Protein 6.4 Albumin 2.6 L HOSPITAL COURSE: Date of Admission:08/20/17 Date of Discharge: 08/24/17 Discharge Summary Reason For Visit: CHEST PAIN, HYPERTENSIVE URGENCY Current Active Problems Acute kidney failure (Acute) Chest pain (Acute) Elevated troponin (Acute) Factor VII deficiency (Acute) Gout (Acute) Hypertensive urgency (Acute) Parkinsons (Acute) Condition: Stable - Instructions Referrals: Isaac Cole [Primary Care Provider] - - Home Medications Comprehensive Discharge Medication List: Ambulatory Orders Insulin Glargine,Hum.rec.anlog [Lantus (10mL VIAL) -] 50 units SQ HS 07/26/15 Insulin Lispro [Humalog] 10 unit SQ TID 07/26/15 Levothyroxine [Synthroid -] 100 mcg PO DAILY 07/26/15 Metoprolol Succinate [Toprol XL -] 50 mg PO DAILY 07/26/15 Omeprazole [Prilosec] 40 mg PO DAILY 07/26/15 Carbidopa/Levodopa [Carbidopa-Levodopa 25-100 Tab] 1 each PO TID 05/15/16 Linagliptin [Tradjenta] 5 mg PO DAILY 05/15/16 Atorvastatin Ca [Lipitor] 20 mg PO HS #30 tablet 05/16/17 Colchicine 0.6 mg PO DAILY 05/16/17 Furosemide 20 mg PO DAILY 05/16/17 Rivastigmine Tartrate [Exelon (Nf) -] 1.5 mg PO BID 05/16/17 Amlodipine Besylate [Norvasc -] 10 mg PO DAILY #30 tablet 05/17/17 Valsartan 160 mg PO DAILY #30 tablet 05/17/17 Ramipril [Altace] 2.5 mg PO DAILY 08/21/17 Valsartan [Diovan] 160 mg PO DAILY 08/21/17 - Discharge Referral Referred to [facility] No
[2017-08-26 00:42] VITALS: BMI 34.7
== END 2017-08-24 14:58 | disposition short-term general hospital (02) | DRG 311 ==
LOC: JER 23:31 → JERBED 08-20 04:57 → UNDOADMIN 08-20 05:36 → JICU 08-20 08:47 → J4W 08-20 15:57
PROVIDERS: ADMIT Internal Medicine; ATTEND Nurse Practitioner Family
DX: I24.8 Other forms of acute ischemic heart disease (principal); N17.9 Acute kidney failure, unspecified; D68.2 Hereditary deficiency of other clotting factors; N18.4 Chronic kidney disease, stage 4 (severe); E11.65 Type 2 diabetes mellitus with hyperglycemia; E11.22 Type 2 diabetes mellitus with diabetic chronic kidney disease; I12.9 Hypertensive chronic kidney disease with stage 1 through stage 4 chronic kidney disease, or unspecified chronic kidney disease; I16.0 Hypertensive urgency; K76.0 Fatty (change of) liver, not elsewhere classified; Z91.14 Patient's other noncompliance with medication regimen; Z79.4 Long term (current) use of insulin; E03.9 Hypothyroidism, unspecified; E66.01 Morbid (severe) obesity due to excess calories; Z68.34 Body mass index [BMI] 34.0-34.9, adult; G20 Parkinson's disease; M10.9 Gout, unspecified; I36.1 Nonrheumatic tricuspid (valve) insufficiency
CPT/HCPCS: 36415; 71045-TC-FY; 76775-TC; 80048; 80053; 81003; 81015; 82436; 82550; 82962; 83036; 83735; 84100; 84133; 84300; 84439; 84443; 84484; 85025; 85230; 85610; 85730; 93005; 93010; 93306-TC; 99284-25; J7030

== ENCOUNTER 2017-09-15 13:09 | Emergency (ER) | payer OTHER ==
--- NOTE | 2017-09-15 13:14 | PDOC ---
Attending Attestation - HPI HPI: 09/15/17 14:54 The patient is a 71 year old female with a significant PMH of hypertension, hyperlipidemia, diabetes, CABG(2 weeks ago), and DM who presents to the emergency department with worsening left sided neck pain and bilateral shoulder pain for 1 week. The patient reports that she recently had a CABG(2 weeks ago). She states that after her procedure she was told to take her given medications and told to follow up. The patient reports that 1 week after her operation she began to feel a stretching pain in her left neck and bilateral shoulders(left greater than right). The patient reports that she feels her pain with movement of her chest. She denies any medicated relief. The patient denies any other symptoms. She denies any fever, chills, nausea, vomit, diarrhea, constipation or urinary symptoms. She denies chest pain, shortness of breath,palpitation, headache, dizziness or lightheadedness. The patient denies any other complaints. PCP: Dr. Cole Documentation prepared by Rupert Espinosa, acting as medical support assistant for Chana Jordan MD. <Rupert Espinosa - Last Filed: 09/15/17 14:54> - Resident Resident Name: Kevan Maldonado - ED Attending Attestation I have performed the following: I have examined & evaluated the patient, The case was reviewed & discussed with the resident, I agree w/resident's findings & plan, Exceptions are as noted - Physicial Exam PE: GENERAL: Awake, alert, and fully oriented, in no acute distress HEAD: No signs of trauma EYES: PERRLA, EOMI, sclera anicteric, conjunctiva clear ENT: Auricles normal inspection, hearing grossly normal, nares patent, oropharynx clear without exudates. Moist mucosa NECK: Normal ROM, supple, no lymphadenopathy, JVD, or masses LUNGS: Breath sounds equal, clear to auscultation bilaterally. No wheezes, and no crackles HEART: Regular rate and rhythm, normal S1 and S2, no murmurs, rubs or gallops ABDOMEN: Soft, nontender, normoactive bowel sounds. No guarding, no rebound. No masses EXTREMITIES: Normal range of motion, no edema. No clubbing or cyanosis. No cords, erythema, or tenderness NEUROLOGICAL: Cranial nerves II through XII grossly intact. Normal speech. Motor and sensation intact. SKIN: Warm, Dry, normal turgor, no rashes. Midline sternotomy incision intact, no drainage. +Mod swelling beneath the superior portion of the incision. No drainage, no overlying skin changes. +Healing incision to L inner thigh. + Induration to the inner thigh incision, no erythema, no drainage. - Medical Decision Making Pt with neck pain since her CABG surgery. She has reproducible pain on her exam , indicating a likely muscular strain. Will obtain XR of c-spine in light of intubation during surgery, however, muscular strain is more likely. Also, will obtain soft tissue sono of her incisions. There is no erythema, warmth, or drainage, however, the inner thigh incision is indurated and the chest incision appears to have a fluid collection beneath. <Chana Jordan - Last Filed: 09/15/17 15:49>
[2017-09-15 13:31] VITALS: BMI 30.2
--- NOTE | 2017-09-15 13:59 | PDOC ---
History of Present Illness - General Chief Complaint: Pain Stated Complaint: SHOULDER PAIN Time Seen by Provider: 09/15/17 13:13 History Source: Patient Exam Limitations: No Limitations - History of Present Illness Initial Comments: 09/15/17 13:51 The patient is a 71F with a PMH of DM, CKD, HLD, hypothyroidism who presents to the ER with shoulder and neck pain. The patient states that she had a CABG 2 weeks ago and has had worsening L neck and b/l shoulder pain. The patient states that she had this "stretching pain" since her operation, but for the past week, the pain has been worse. She describes constant, stretching pain which is present in her L neck and b/l shoulders, without any exacerbating or alleviating factors including extra strength tylenol which was given to her post -op. She denies fever, chills, CP, SOB, nausea, vomiting, numbness, tingling, or weakness. Past History - Past Medical History Allergies/Adverse Reactions: Allergies Allergy/AdvReac Type Severity Reaction Status Date / Time No Known Drug Allergies Allergy Verified 09/15/17 13:31 Home Medications: Ambulatory Orders Levothyroxine [Synthroid -] 100 mcg PO DAILY 07/26/15 Omeprazole [Prilosec] 40 mg PO DAILY 07/26/15 Carbidopa/Levodopa [Carbidopa-Levodopa 25-100 Tab] 1 each PO TID 05/15/16 Atorvastatin Ca [Lipitor] 20 mg PO HS #30 tablet 05/16/17 Colchicine 0.6 mg PO DAILY 05/16/17 Rivastigmine Tartrate [Exelon (Nf) -] 1.5 mg PO BID 05/16/17 Amlodipine Besylate [Norvasc -] 10 mg PO DAILY tablet 08/24/17 Insulin (Levemir) [Levemir Vial] 30 units SQ HS units 08/24/17 Insulin Sliding Scale [Novolog Vial Sliding Scale -] 1 vial SQ ACHS units 08/24 Valsartan [Diovan] 160 mg PO DAILY tablet 08/24/17 Aspirin 81 mg PO DAILY 09/15/17 Anemia: No Asthma: No Cancer: No Cardiac Disorders: Yes (RAPID HEART BEAT AT TIMES) CVA: No COPD: No CHF: No Dementia: No Diabetes: Yes GI Disorders: Yes (ACID REFLUX) Disorders: No HTN: Yes Hypercholesterolemia: Yes Liver Disease: Yes (fatty liver) Seizures: No Thyroid Disease: Yes (HYPOACTIVE) - Surgical History Abdominal Surgery: Yes (ventral HERNIA 2009, 2013) Appendectomy: Yes (2006) Cardiac Surgery: Yes (tripple bypass 08/2017) Cholecystectomy: Yes Lung Surgery: No Neurologic Surgery: No Orthopedic Surgery: No - Immunization History Immunization Up to Date: Yes - Suicide/Smoking/Psychosocial Hx Smoking Status: Yes Smoking History: Former smoker Have you smoked in the past 12 months: No Number of Cigarettes Smoked Daily: 0 If you are a former smoker, when did you quit?: 1982 Information on smoking cessation initiated: No Hx Alcohol Use: No Drug/Substance Use Hx: No Substance Use Type: None Hx Substance Use Treatment: No Review of Systems - Review of Systems Able to Perform ROS?: Yes Comments:: 09/15/17 14:00 GENERAL/CONSTITUTIONAL: No fever or chills. No weakness. HEAD, EYES, EARS, NOSE AND THROAT: No change in vision. No ear pain or discharge. No sore throat. CARDIOVASCULAR: No chest pain, palpitations, or lightheadedness. RESPIRATORY: No cough, wheezing, shortness of breath, or hemoptysis. GASTROINTESTINAL: No nausea, vomiting, diarrhea, constipation, or abdominal pain. GENITOURINARY: No dysuria, frequency, hematuria, or change in urination. MUSCULOSKELETAL: Positive for pain on lateral neck and b/l shoulders. No joint or muscle swelling or pain. No back pain. SKIN: No rash or lesions. NEUROLOGIC: No headache, numbness, tingling, weakness, loss of consciousness, or change in strength/sensation. ENDOCRINE: No increased thirst. No abnormal weight change. HEMATOLOGIC/LYMPHATIC: No anemia, easy bleeding, or history of blood clots. ALLERGIC/IMMUNOLOGIC: No hives or skin allergy. Is the patient limited Cameroonian proficient: No *Physical Exam - Vital Signs Last Vital Signs Temp Pulse Resp BP Pulse Ox 98.7 F 81 16 149/65 100 09/15/17 13:10 09/15/17 13:10 09/15/17 13:10 09/15/17 13:10 09/15/17 13:10 - Physical Exam Comments: 09/15/17 14:22 GENERAL: Well developed, well nourished. Awake and alert. No acute distress. HEENT: Normocephalic, atraumatic. Hearing grossly normal. Moist mucous membranes. PERRLA, EOMI. No conjunctival pallor. Sclera are non-icteric. NECK: Supple. Full ROM. No JVD. CARDIOVASCULAR: Sternotomy scar present. Regular rate and rhythm. No murmurs, rubs, or gallops. PULMONARY: No evidence of respiratory distress. Lungs clear to auscultation bilaterally. No wheezing, rales or rhonchi. ABDOMINAL: Soft. Non-tender. Non-distended. No rebound or guarding. GENITOURINARY: No CVA tenderness bilaterally. MUSCULOSKELETAL: Normal range of motion at all joints. No bony deformities or tenderness. EXTREMITIES: No cyanosis. No clubbing. No edema. No calf tenderness or swelling. SKIN: Warm and dry. Normal capillary refill. No rashes. No jaundice. NEUROLOGICAL: Alert, awake, appropriate. Cranial nerves 2-12 intact. Normal speech. Gait is normal without ataxia. PSYCHIATRIC: Cooperative. Good eye contact. Appropriate mood and affect. Heart Score/ECG Review #1 ECG reviewed & interpreted by me at: 13:56 General ECG Interpretation: Sinus Rhythm, Normal Rate, Normal Intervals, No acute ischemic changes Compared to previous ECG there are: Other (S/p CABG) 09/15/17 14:25 NSR vent rate 80 VA 140 QRS 82 QTc 446 No STD or CARLENE No signs of acute ischemia ED Treatment Course - LABORATORY CBC & Chemistry Diagram: 09/15/17 14:30 09/15/17 15:50 - RADIOLOGY Radiology Studies Ordered: Category Date Time Status CHEST X-RAY PORTABLE* [RAD] Stat Radiology 09/15/17 13:49 Ordered Medical Decision Making - Medical Decision Making 09/15/17 14:25 The patient is a 71F s/p CABG 2 weeks ago who presents to the ER with L lateral neck pain and b/l shoulder pain that is worsening over the past week. I am concerned for repeat ACS vs MSK pain. Pending labs and imaging. 09/15/17 17:53 U/S of pt's L thigh scar reveals [id number] fluid collection. Paging Dr. Osorio, pt's church supervisor, to find out who her surgeon was for referral. 09/15/17 18:34 Dr. Allred has informed me that her troponin is likely 2/2 to her recent CABG which was dictated by the surgeon, Dr. Marinelli ([phone]) [address] page [address] Marinelli to discuss seroma in L thigh and likely d/c pt with f/u. *DC/Admit/Observation/Transfer - Referrals Referrals: Isaac Cole [Primary Care Provider] - - Patient Instructions - Post Discharge Activity
[2017-09-15 14:39] LABS: BASO % 1.3 % (0-2.0); EOS % 5.8 % (0-4.5); HEMATOCRIT 31.1 % (32.4-45.2); HEMOGLOBIN 10.3 GM/dL (10.7-15.3); LYMPH % 16.2 % (8-40); MCH 28.2 pg (25.7-33.7); MCHC 32.9 g/dl (32.0-36.0); MEAN CELL VOLUME 85.6 fl (80-96); MEAN PLT VOLUME 7.2 fl (7.5-11.1); MONO % 7.7 % (3.8-10.2); PLATELET COUNT 428 K/MM3 (134-434); RBC 3.64 M/mm3 (3.60-5.2); WHITE BLOOD COUNT 7.5 K/mm3 (4.0-10.0)
[2017-09-15 16:32] LABS: ALBUMIN 3.1 g/dl (3.4-5.0); ANION GAP 13 (8-16); BILIRUBIN,TOTAL 0.6 mg/dL (0.2-1.0); BLOOD UREA NITROGEN 31 mg/dL (7-18); CALCIUM 9.9 mg/dL (8.5-10.1); CHLORIDE 105 mmol/L (98-107); CO2 23 mmol/L (21-32); CREATININE 2.6 mg/dL (0.55-1.02); GLUCOSE,RANDOM 110 mg/dL (74-106); POTASSIUM 4.1 mmol/L (3.5-5.1); SGOT/AST 13 U/L (15-37); SGPT/ALT 16 U/L (12-78); SODIUM 141 mmol/L (136-145); TOT PROT 7.4 g/dl (6.4-8.2)
[2017-09-15 16:33] LABS: ALK PHOS 108 U/L (45-117)
--- NOTE | 2017-09-15 19:17 | PDOC ---
*Physical Exam - Vital Signs Last Vital Signs Temp Pulse Resp BP Pulse Ox 98.2 F 89 18 140/71 100 09/15/17 18:25 09/15/17 18:25 09/15/17 18:25 09/15/17 18:25 09/15/17 18:25 ED Treatment Course - LABORATORY CBC & Chemistry Diagram: 09/15/17 14:30 09/15/17 15:50 - ADDITIONAL ORDERS Additional order review: Laboratory Results 09/15/17 09/15/17 09/15/17 15:50 15:50 14:30 Sodium 141 Cancelled Potassium 4.1 Cancelled Chloride 105 Cancelled Carbon Dioxide 23 Cancelled Anion Gap 13 Cancelled BUN 31 H Cancelled Creatinine 2.6 H Cancelled Creat Clearance w eGFR 18.20 Cancelled Random Glucose 110 H Cancelled Calcium 9.9 Cancelled Total Bilirubin 0.6 Cancelled AST 13 L Cancelled ALT 16 Cancelled Alkaline Phosphatase 108 D Cancelled Creatine Kinase 52 Cancelled Troponin I 0.07 H Cancelled Total Protein 7.4 Cancelled Albumin 3.1 L Cancelled 09/15/17 14:30 RBC 3.64 MCV 85.6 MCHC 32.9 RDW 18.0 H MPV 7.2 L Neutrophils % 69.0 Lymphocytes % 16.2 D Monocytes % 7.7 Eosinophils % 5.8 H D Basophils % 1.3 D Medical Decision Making - Medical Decision Making 09/15/17 19:[address] Maldonado. 09/15/17 19:18 Ms. Vance is a 71 yo female w/ pmh of DM, CKD, HLD, and hypothyroidism who had CABG 2 weeks ago and presents for evaluation of worsening L neck and b/l shoulder pain. She has had this since her recent CABG but describes constant L neck and alan shoulder pain since. Patient's exam significant for L thigh scar w / US revealing [id number] fluid collection. Prior team discussed with Brigida ( covering party plan sales unit advisor for [employer]) patient's elevated troponin as below who describes this as expected post recent procedure. Patient's surgeon (Dr. Marinelli; [phone]) likewise paged for discussion of thigh seroma. Plan to d/c patient w/ outpatient follow-up if surgeon agrees. 09/15/17 20:37 Discussed patient w/ Dr. Marinelli who will follow-up outpatient. Patient reporting relief from symptoms w/ Robaxin. Discharging to home w/ outpatient proscription for pain relief. Patient will f/u as discussed. *DC/Admit/Observation/Transfer Diagnosis at time of Disposition: Neck pain, S/P CABG x 1 - Discharge Dispostion Disposition: HOME - Prescriptions Prescriptions: Methocarbamol [Robaxin -] 500 mg PO TID PRN 4 Days #12 tablet PRN Reason: Back Pain - Referrals Referrals: Isaac Cole [Primary Care Provider] - - Patient Instructions Printed Discharge Instructions: DI for Coronary Artery Bypass Grafting Additional Instructions: Please follow-up next week with party plan sales unit advisor and surgeon as discussed. Take all medications as proscribed. Return to ER immediately if any difficulty walking, fever, chills, loss of sensation, or any other concerning symptoms. - Post Discharge Activity
[2017-09-15 19:40] VITALS: BP 140/70; PULSE 83; TEMP 97.9
[2017-09-15] MEDS ORDERED: METHOCARBAMOL 500 MG TABLET PO ONE (19:46)
[2017-09-15] MEDS ORDERED: METHOCARBAMOL 500 MG TABLET ONE (19:51)
--- NOTE | 2017-09-18 20:27 | EKG ---
Test Reason : Blood Pressure : / mmHG Vent. Rate : 081 BPM Atrial Rate : 081 BPM P-R Int : 140 ms QRS Dur : 082 ms QT Int : 384 ms P-R-T Axes : 040 -17 120 degrees QTc Int : 446 ms NORMAL SINUS RHYTHM LEFT VENTRICULAR HYPERTROPHY WITH REPOLARIZATION ABNORMALITY ABNORMAL ECG WHEN COMPARED WITH ECG OF 20-AUG-2017 09:49, NON-SPECIFIC CHANGE IN ST SEGMENT IN INFERIOR LEADS NON-SPECIFIC CHANGE IN ST SEGMENT IN LATERAL LEADS T WAVE INVERSION NOW EVIDENT IN ANTERIOR LEADS Confirmed by MD ROD, LISA ([id number]) on 09/18/2017 8:26:44 PM Referred By: Confirmed By:LISA VELASCO MD
== END 2017-09-15 21:14 | disposition home or self-care (01) ==
LOC: JER 13:09
DX: I97.641 Postprocedural seroma of a circulatory system organ or structure following cardiac bypass (principal); M54.2 Cervicalgia; Z95.1 Presence of aortocoronary bypass graft; I25.810 Atherosclerosis of coronary artery bypass graft(s) without angina pectoris; I13.10 Hypertensive heart and chronic kidney disease without heart failure, with stage 1 through stage 4 chronic kidney disease, or unspecified chronic kidney disease; N18.9 Chronic kidney disease, unspecified; Z87.891 Personal history of nicotine dependence; E11.9 Type 2 diabetes mellitus without complications; Z79.4 Long term (current) use of insulin; E03.9 Hypothyroidism, unspecified; E78.5 Hyperlipidemia, unspecified
CPT/HCPCS: 36415; 71045-TC-FY; 72050-TC-FY; 76604; 76882; 80053; 82550; 84484; 85025; 93005; 93010; 99284-25

== ENCOUNTER 2020-01-21 18:46 | Inpatient (IN) | payer OTHER ==
[2020-01-21 21:58] LABS: BASO % 0.5 % (0-2.0); EOS % 0.6 % (0-4.5); HEMATOCRIT 34.9 % (32.4-45.2); HEMOGLOBIN 11.4 GM/dL (10.7-15.3); LYMPH % 20.3 % (8-40); MCH 28.4 pg (25.7-33.7); MCHC 32.8 g/dl (32.0-36.0); MEAN CELL VOLUME 86.6 fl (80-96); MEAN PLT VOLUME 7.4 fl (7.5-11.1); MONO % 7.7 % (3.8-10.2); NEUT % 70.9 % (42.8-82.8); PLATELET COUNT 307 K/MM3 (134-434); RBC 4.03 M/mm3 (3.60-5.2); RDW 16.1 % (11.6-15.6); WHITE BLOOD COUNT 6.6 K/mm3 (4.0-10.0)
[2020-01-21 22:19] LABS: POTASSIUM 5.3 mmol/L (3.5-5.1)
[2020-01-21 22:21] LABS: CALCIUM 10.6 mg/dL (8.5-10.1)
[2020-01-21 22:22] LABS: ALBUMIN 3.4 g/dl (3.4-5.0); BLOOD UREA NITROGEN 34.4 mg/dL (7-18)
[2020-01-21 22:25] LABS: CREATININE 3.9 mg/dL (0.55-1.3)
[2020-01-21 22:27] LABS: BILIRUBIN,TOTAL 0.3 mg/dL (0.2-1); TOT PROT 7.2 g/dl (6.4-8.2)
[2020-01-21 22:29] LABS: INR 1.52 (0.83-1.09); PROTHROMBIN TIME (PATIENT) 18.2 SEC (9.7-13.0)
[2020-01-21] MEDS ORDERED: LABETALOL HCL 100 MG TABLET (FP) PO ONE (23:58)
[2020-01-22] MEDS ORDERED: LABETALOL HCL 100 MG TABLET (FP) ONE (00:18)
[2020-01-22 00:20] LABS: EPI CELLS 26 /uL (0-25.1); HYALINE CASTS 0 /uL (0-3.1); PH,URINE 5.5 (5.0-8.0); URINE APPEARANCE CLEAR; URINE BACTERIA 219 /uL (0-1359); URINE BILIRUBIN NEGATIVE (NEGATIVE); URINE COLOR YELLOW; URINE GLUCOSE (UA) NEGATIVE (NEGATIVE); URINE KETONE NEGATIVE (NEGATIVE); URINE LEUK ESTERASE NEGATIVE (NEGATIVE); URINE NITRITE NEGATIVE (NEGATIVE); URINE PROTEIN 2+ (NEGATIVE); URINE RBC 10 /uL (0-23.9); URINE UROBILINOGEN 0.2 mg/dL (0.2-1.0); URINE WBC 11 /uL (0-25.8)
[2020-01-22] MEDS: INSULIN SLIDING SCALE (NOVOLOG) 1 VIAL SQ SCH ×6 (01:51→21:21)
[2020-01-22] MEDS ORDERED: ONDANSETRON 4 MG/2 ML VIAL IVPUSH ONE ×2 (06:23→11:57)
[2020-01-22 06:30] VITALS: BMI 28.9
[2020-01-22] MEDS ORDERED: INSULIN (NOVOLOG) ASPART 100 UNITS/ML 10ML VIAL ONE (06:34)
[2020-01-22 08:05] LABS: INR 1.64 (0.83-1.09); PROTHROMBIN TIME (PATIENT) 19.6 SEC (9.7-13.0)
[2020-01-22 08:06] LABS: HEMATOCRIT 30.5 % (32.4-45.2); HEMOGLOBIN 10.2 GM/dL (10.7-15.3); MCHC 33.5 g/dl (32.0-36.0); MEAN CELL VOLUME 86.8 fl (80-96); MEAN PLT VOLUME 7.8 fl (7.5-11.1); PLATELET COUNT 249 K/MM3 (134-434); RBC 3.51 M/mm3 (3.60-5.2); RDW 16.4 % (11.6-15.6); WHITE BLOOD COUNT 4.3 K/mm3 (4.0-10.0)
[2020-01-22 08:27] LABS: BLOOD UREA NITROGEN 33.8 mg/dL (7-18); CALCIUM 9.7 mg/dL (8.5-10.1); CREATININE 3.6 mg/dL (0.55-1.3)
[2020-01-22 08:31] LABS: PHOSPHOROUS 3.6 mg/dL (2.5-4.9)
[2020-01-22 08:33] LABS: BILIRUBIN,TOTAL 1.2 mg/dL (0.2-1); TOT PROT 6.3 g/dl (6.4-8.2)
[2020-01-22] MEDS ORDERED: LABETALOL HCL 200 MG TABLET (FP) PO SCH (10:00)
[2020-01-22] MEDS: ASPIRIN 81 MG CHEWABLE TABLETS PO SCH (11:14)
[2020-01-22] MEDS: POLYETHYLENE GLYCOL 3350 119 GM BTL PO SCH (11:15)
[2020-01-22] MEDS: amLODIPine BESYLATE 10 MG TABLET (FP) PO SCH (11:15)
[2020-01-22] MEDS: DOCUSATE SODIUM 100 MG CAPSULE (FP) PO SCH (11:15)
[2020-01-22] MEDS: SODIUM CHLORIDE 1,000 ML IV SCH (11:15)
[2020-01-22] MEDS: INSULIN (LEVEMIR) 100 UNITS/ML UNITS SQ SCH ×2 (11:21→21:18)
[2020-01-22] MEDS ORDERED: METOCLOPRAMIDE HCL 10 MG TABLET (FP) PO ONE (12:35)
[2020-01-22] MEDS ORDERED: GLYCERIN 1 RECTAL SUPPOSITORY, ADULT PR ONE (13:55)
[2020-01-22] MEDS: LABETALOL HCL 200 MG TABLET (FP) PO SCH ×2 (16:03→21:14)
[2020-01-22] MEDS ORDERED: SENNOSIDES 8.6MG TABLET (FP) PO SCH (22:00)
[2020-01-23] MEDS: INSULIN SLIDING SCALE (NOVOLOG) 1 VIAL SQ SCH ×4 (01:59→14:58)
[2020-01-23] MEDS: LABETALOL HCL 200 MG TABLET (FP) PO SCH ×2 (06:19→14:59)
[2020-01-23] MEDS ORDERED: LEVOTHYROXINE NA 100 MCG TABLET (FP) PO SCH (07:00)
[2020-01-23 09:47] LABS: HEMOGLOBIN 9.9 GM/dL (10.7-15.3); MCH 27.8 pg (25.7-33.7); MCHC 31.8 g/dl (32.0-36.0); MEAN CELL VOLUME 87.2 fl (80-96); MEAN PLT VOLUME 7.5 fl (7.5-11.1); PLATELET COUNT 253 K/MM3 (134-434); RBC 3.55 M/mm3 (3.60-5.2); RDW 16.4 % (11.6-15.6); WHITE BLOOD COUNT 4.5 K/mm3 (4.0-10.0)
[2020-01-23] MEDS: DOCUSATE SODIUM 100 MG CAPSULE (FP) PO SCH (09:48)
[2020-01-23] MEDS: amLODIPine BESYLATE 10 MG TABLET (FP) PO SCH (09:48)
[2020-01-23] MEDS: SODIUM CHLORIDE 1,000 ML IV SCH (09:48)
[2020-01-23] MEDS: ASPIRIN 81 MG CHEWABLE TABLETS PO SCH (09:49)
[2020-01-23] MEDS: POLYETHYLENE GLYCOL 3350 119 GM BTL PO SCH (09:50)
[2020-01-23 09:54] VITALS: TEMP 97.9
[2020-01-23 10:01] LABS: CHLORIDE 108 mmol/L (98-107); POTASSIUM 4.6 mmol/L (3.5-5.1); SODIUM 139 mmol/L (136-145)
[2020-01-23] MEDS: INSULIN (LEVEMIR) 100 UNITS/ML UNITS SQ SCH (10:02)
[2020-01-23 10:03] LABS: ALBUMIN 2.8 g/dl (3.4-5.0); CALCIUM 9.6 mg/dL (8.5-10.1)
[2020-01-23 10:05] LABS: ANION GAP 6 MMOL/L (8-16); BLOOD UREA NITROGEN 29.7 mg/dL (7-18); CO2 26 mmol/L (21-32); GLUCOSE,RANDOM 120 mg/dL (74-106)
[2020-01-23 10:08] LABS: CREATININE 3.6 mg/dL (0.55-1.3); SGOT/AST 6 U/L (15-37); SGPT/ALT 9 U/L (13-61)
[2020-01-23 10:09] LABS: BILIRUBIN,TOTAL 0.4 mg/dL (0.2-1)
[2020-01-23 10:10] LABS: ALK PHOS 137 U/L (45-117)
[2020-01-23 14:32] LABS: CHOLESTEROL 170 mg/dL (50-200)
[2020-01-23 14:33] LABS: LDL CHOLESTEROL (ONLY SJRH) 101 mg/dL (5-100); TRIGLYCERIDES 126 mg/dL (0-150)
[2020-01-23 14:36] LABS: HDL CHOLESTEROL 41 mg/dL (40-60)
[2020-01-23 15:22] VITALS: BP 134/73; PULSE 69
== END 2020-01-23 17:44 | disposition home or self-care (01) | DRG 638 ==
LOC: JER 18:46 → JERBED 23:19 → OBSVTOIN 01-22 01:39 → J5S 01-22 05:43
PROVIDERS: ADMIT Hospitalist; ATTEND Internal Medicine
DX: E11.649 Type 2 diabetes mellitus with hypoglycemia without coma (principal); D68.2 Hereditary deficiency of other clotting factors; E78.5 Hyperlipidemia, unspecified; I25.10 Atherosclerotic heart disease of native coronary artery without angina pectoris; Z95.1 Presence of aortocoronary bypass graft; E03.9 Hypothyroidism, unspecified; I12.9 Hypertensive chronic kidney disease with stage 1 through stage 4 chronic kidney disease, or unspecified chronic kidney disease; K59.00 Constipation, unspecified; I16.0 Hypertensive urgency; N18.4 Chronic kidney disease, stage 4 (severe); N17.9 Acute kidney failure, unspecified; G20 Parkinson's disease; Z91.14 Patient's other noncompliance with medication regimen; K21.9 Gastro-esophageal reflux disease without esophagitis
CPT/HCPCS: 36415; 70450-TC; 71045-TC-FY; 72125-TC; 74176-TC; 80053; 80061; 81003; 82550; 82962; 83721; 83735; 84100; 84439; 84443; 84484; 85025; 85027; 85610; 87086; 93005; 93010; 97116-GP; 97162-GP; 99285-25; C9803; G0378; U0003

== ENCOUNTER 2020-05-14 23:48 | Emergency (ER) | payer OTHER ==
[2020-05-15 00:29] VITALS: BP 158/69; PULSE 81; TEMP 98.3; BMI 29.2
== END 2020-05-15 01:48 | disposition home or self-care (01) ==
LOC: JER 23:48
DX: M62.838 Other muscle spasm (principal)
CPT/HCPCS: 99283-25

== ENCOUNTER 2020-06-13 03:39 | Inpatient (IN) | payer OTHER ==
[2020-06-13 03:58] VITALS: BMI 26.5
[2020-06-13] MEDS ORDERED: ONDANSETRON 4 MG/2 ML VIAL IVPUSH ONE (04:43)
[2020-06-13] MEDS ORDERED: SODIUM CHLORIDE 0.9% 500 ML INFUS.BAG IV ONE (04:43)
[2020-06-13] MEDS ORDERED: ONDANSETRON 4 MG/2 ML VIAL ONE (04:53)
[2020-06-13 04:54] LABS: BASO % 0.5 % (0-2.0); HEMOGLOBIN 12.1 GM/dL (10.7-15.3); LYMPH % 8.7 % (8-40); MCH 29.2 pg (25.7-33.7); MCHC 31.8 g/dl (32.0-36.0); MEAN CELL VOLUME 91.9 fl (80-96); MEAN PLT VOLUME 8.9 fl (7.5-11.1); MONO % 4.3 % (3.8-10.2); NEUT % 86.5 % (42.8-82.8); PLATELET COUNT 288 K/MM3 (134-434); RBC 4.14 M/mm3 (3.60-5.2); RDW 16.4 % (11.6-15.6); WHITE BLOOD COUNT 7.8 K/mm3 (4.0-10.0)
[2020-06-13 05:01] LABS: INR 1.36 (0.83-1.09); PROTHROMBIN TIME (PATIENT) 16.3 SEC (9.7-13.0)
[2020-06-13 05:02] LABS: VENOUS BASE EXCESS -2.5 mmol/L (-2-2); VENOUS O2 SATURATION 64.1 % (70-80); VENOUS PCO2 50.5 mmHg (38-52); VENOUS PH 7.301 (7.310-7.410)
[2020-06-13 05:04] LABS: ACTIVATED PTT 25.8 SECONDS (25.2-36.5)
[2020-06-13 05:07] LABS: CHLORIDE 89 mmol/L (98-107); SODIUM 132 mmol/L (136-145)
[2020-06-13 05:10] LABS: ALBUMIN 3.9 g/dl (3.4-5.0); ANION GAP 19 MMOL/L (8-16); BLOOD UREA NITROGEN 67.8 mg/dL (7-18); CALCIUM 10.9 mg/dL (8.5-10.1); CO2 24 mmol/L (21-32); LIPASE 137 U/L (73-393)
[2020-06-13 05:13] LABS: CREATININE 4.2 mg/dL (0.55-1.3); SGOT/AST 17 U/L (15-37); SGPT/ALT 12 U/L (13-61)
[2020-06-13 05:16] LABS: ALK PHOS 165 U/L (45-117); BILIRUBIN,TOTAL 0.5 mg/dL (0.2-1); TOT PROT 8.4 g/dl (6.4-8.2)
[2020-06-13 05:24] LABS: GLUCOSE,RANDOM 939 mg/dL (74-106)
[2020-06-13] MEDS ORDERED: INSULIN REGULAR HUMAN 100 UNITS/ML *VIAL* (FOR IVP) IVPUSH ONE (05:43)
[2020-06-13] MEDS ORDERED: INSULIN REGULAR 100 UNITS in SODIUM CHLORIDE 99 ML IVPB SCH (05:45)
[2020-06-13] MEDS ORDERED: INSULIN REGULAR HUMAN 100 UNITS/ML *VIAL ONE ×2 (05:52→06:11)
[2020-06-13] MEDS ORDERED: morphine CARPU-JECT 2 MG/1 ML DISP.SYRIN IVPUSH ONE (06:19)
[2020-06-13] MEDS ORDERED: MORPHINE SULFATE 2 MG/ML VIAL ONE ×3 (06:27→08:19)
[2020-06-13] MEDS ORDERED: ASPIRIN 325 MG TABLET PO ONE (06:36)
[2020-06-13] MEDS ORDERED: ASPIRIN 325 MG ENTERIC COATED TABLET (FP) ONE (06:57)
[2020-06-13] MEDS ORDERED: LACTATED RINGERS SOLUTION 1000 ML INFUS.BAG IV STA (07:23)
[2020-06-13] MEDS ORDERED: LACTATED RINGERS SOLUTION 1,000 ML with POTASSIUM CHLORIDE 20 MEQ IV ONE ×2 (07:25→12:14)
[2020-06-13] MEDS ORDERED: morphine CARPU-JECT 4 MG/1 ML DISP.SYRIN IVPUSH ONE ×2 (08:12→12:01)
[2020-06-13] MEDS ORDERED: ACETAMINOPHEN 1000 MG/100 ML VIAL (NON FORMULARY) IVPB ONE (08:13)
[2020-06-13 08:30] LABS: VENOUS BASE EXCESS -3.9 mmol/L (-2-2); VENOUS O2 SATURATION 39.4 % (70-80); VENOUS PCO2 49.1 mmHg (38-52); VENOUS PH 7.288 (7.310-7.410)
[2020-06-13 08:44] LABS: CHLORIDE 95 mmol/L (98-107); SODIUM 135 mmol/L (136-145)
[2020-06-13 08:45] LABS: CALCIUM 10.8 mg/dL (8.5-10.1)
[2020-06-13 08:46] LABS: ANION GAP 15 MMOL/L (8-16); BLOOD UREA NITROGEN 71.3 mg/dL (7-18); CO2 25 mmol/L (21-32)
[2020-06-13 08:59] LABS: LACTIC ACID 3.1 mmol/L (0.4-2.0)
[2020-06-13 09:00] LABS: GLUCOSE,RANDOM 926 mg/dL (74-106)
[2020-06-13] MEDS ORDERED: SODIUM CHLORIDE 1,000 ML IV STA (10:54)
[2020-06-13] MEDS ORDERED: SODIUM CHLORIDE 1,000 ML IV SCH (11:54)
[2020-06-13] MEDS ORDERED: LORazepam 1 MG TABLET PO ONE (12:06)
[2020-06-13] MEDS ORDERED: MAG HYDROX/AL HYDROX/SIMETH 30 ML UNIT-DOSE CUP PO ONE (12:08)
[2020-06-13] MEDS ORDERED: LIDOCAINE VISCOUS 2% ORAL/TOP 20 ML UNIT-DOSE CUP MM ONE (12:08)
[2020-06-13] MEDS ORDERED: morphine SULFATE 4 MG/ML VIAL ONE (12:15)
[2020-06-13] MEDS ORDERED: ACETAMINOPHEN INJECTION 100 ML IVPB ONE (12:15)
[2020-06-13 12:59] LABS: CHLORIDE 96 mmol/L (98-107); SODIUM 137 mmol/L (136-145)
[2020-06-13 13:02] LABS: ANION GAP 12 MMOL/L (8-16); BLOOD UREA NITROGEN 69.6 mg/dL (7-18); CALCIUM 11.3 mg/dL (8.5-10.1); CO2 29 mmol/L (21-32)
[2020-06-13 13:04] LABS: MAGNESIUM 2.8 mg/dL (1.8-2.4)
[2020-06-13 13:06] LABS: CREATININE 4.3 mg/dL (0.55-1.3)
[2020-06-13 13:21] LABS: GLUCOSE,RANDOM 744 mg/dL (74-106); LACTIC ACID 3.8 mmol/L (0.4-2.0)
[2020-06-13] MEDS ORDERED: METOPROLOL TARTRATE 5 MG/5 ML VIAL IVPUSH ONE (13:21)
[2020-06-13] MEDS ORDERED: LIDOCAINE VISCOUS 2% ORAL/TOP 20 ML UNIT-DOSE CUP ONE (13:24)
[2020-06-13] MEDS ORDERED: METOPROLOL TARTRATE 5 MG/5 ML VIAL ONE (13:25)
[2020-06-13] MEDS ORDERED: LORazepam 2 MG/ML SDV VIAL ONE (13:25)
[2020-06-13] MEDS ORDERED: MAG HYDROX/AL HYDROX/SIMETH 30 ML UNIT-DOSE CUP ONE (13:25)
[2020-06-13] MEDS ORDERED: POTASSIUM CHLORIDE 20 MEQ in LACTATED RINGERS SOLUTION 1,000 ML IV ONE (13:56)
[2020-06-13] MEDS ORDERED: ACETAMINOPHEN 1000 MG/100 ML VIAL (NON FORMULARY) IVPB PRN (14:32)
[2020-06-13] MEDS ORDERED: LACTATED RINGERS IV SCH ×2 (15:00→15:15)
[2020-06-13] MEDS ORDERED: POTASSIUM CHLORIDE IV SCH ×2 (15:00→15:15)
[2020-06-13] MEDS ORDERED: INFUS IV SCH (15:15)
[2020-06-13 16:38] LABS: VENOUS PCO2 22.1 mmHg (38-52); VENOUS PH 7.278 (7.310-7.410)
[2020-06-13 16:55] LABS: CHLORIDE 112 mmol/L (98-107); SODIUM 140 mmol/L (136-145)
[2020-06-13 16:56] LABS: CO2 22 mmol/L (21-32)
[2020-06-13 16:57] LABS: GLUCOSE,RANDOM 283 mg/dL (74-106)
[2020-06-13 17:01] LABS: CREATININE 2.4 mg/dL (0.55-1.3)
[2020-06-13 17:12] LABS: ANION GAP 6 MMOL/L (8-16); BLOOD UREA NITROGEN 44.6 mg/dL (7-18); CALCIUM 9.1 mg/dL (8.5-10.1)
[2020-06-13 17:19] LABS: LACTIC ACID 14.8 mmol/L (0.4-2.0)
[2020-06-13 18:48] LABS: ARTERIAL BLD GAS O2 SATURATION 95.3 mmHg (95-98); ARTERIAL BLOOD GAS PO2 79.9 mmHg (80-100)
[2020-06-13 19:42] LABS: ALBUMIN 3.2 g/dl (3.4-5.0)
[2020-06-13 19:43] LABS: BLOOD UREA NITROGEN 69.2 mg/dL (7-18)
[2020-06-13 19:46] LABS: CREATININE 4.1 mg/dL (0.55-1.3)
[2020-06-13 19:47] LABS: PHOSPHOROUS 2.9 mg/dL (2.5-4.9)
[2020-06-13 19:48] LABS: BILIRUBIN,TOTAL 0.3 mg/dL (0.2-1)
[2020-06-13 19:50] LABS: CALCIUM 10.8 mg/dL (8.5-10.1)
[2020-06-13] MEDS ORDERED: PIPERACILLIN/TAZOB 3.375 GM 3.375 GM in DEXTROSE 5%-WATER - 50 ML IVPB ONE (19:55)
[2020-06-13] MEDS ORDERED: VANCOMYCIN 1,000 MG in DEXTROSE 5%-WATER - 250 ML IVPB ONE (19:56)
[2020-06-13 21:03] LABS: EPI CELLS 35 /uL (0-25.1); HYALINE CASTS 12 /uL (0-3.1); URINE APPEARANCE CLOUDY; URINE BACTERIA 15 /uL (0-1359); URINE BILIRUBIN NEGATIVE (NEGATIVE); URINE COLOR YELLOW; URINE GLUCOSE (UA) 2+ (NEGATIVE); URINE KETONE NEGATIVE (NEGATIVE); URINE LEUK ESTERASE TRACE (NEGATIVE); URINE NITRITE NEGATIVE (NEGATIVE); URINE PROTEIN 4+ (NEGATIVE); URINE WBC 649 /uL (0-25.8)
[2020-06-13] MEDS ORDERED: HEPARIN NA (PORCINE) 5,000 UNITS/ML 1ML VIAL ONE (21:04)
[2020-06-13] MEDS ORDERED: PIPERACILLIN/TAZOB 3.375 GM 3.375 GM/50 ML BAG IVPB ONE (21:05)
[2020-06-13] MEDS ORDERED: VANCOMYCIN 1 GRAM (PRE-DOCKED) 1,000 MG/250 ML BAG IVPB ONE (21:05)
[2020-06-13 21:06] LABS: URINE RBC 488.2 /uL (0-23.9); YEAST FEW (NEGATIVE)
[2020-06-13] MEDS: HEPARIN NA (PORCINE) 5,000 UNITS/ML 1ML VIAL SQ SCH (21:25)
[2020-06-13] MEDS ORDERED: ASPIRIN 81 MG CHEWABLE TABLETS ONE (21:52)
[2020-06-13] MEDS: DEXTROSE 5%-0.45% SALINE 1,000 ML IV SCH (22:01)
[2020-06-13] MEDS: INSULIN SLIDING SCALE (NOVOLOG) 1 VIAL SQ SCH (22:01)
[2020-06-13] MEDS: ASPIRIN 81 MG CHEWABLE TABLETS PO SCH (22:01)
[2020-06-14 02:01] LABS: CHLORIDE 104 mmol/L (98-107); SODIUM 140 mmol/L (136-145)
[2020-06-14 02:03] LABS: ANION GAP 3 MMOL/L (8-16); BLOOD UREA NITROGEN 64.3 mg/dL (7-18); CALCIUM 10.2 mg/dL (8.5-10.1); CO2 33 mmol/L (21-32); GLUCOSE,RANDOM 335 mg/dL (74-106)
[2020-06-14 02:05] LABS: CREATININE 3.7 mg/dL (0.55-1.3)
[2020-06-14] MEDS ORDERED: METOPROLOL TARTRATE 5 MG/5 ML VIAL IVPUSH ONE (02:09)
[2020-06-14] MEDS ORDERED: METOPROLOL TARTRATE 5 MG/5 ML VIAL ONE (02:12)
[2020-06-14] MEDS: CHLORHEXIDINE GLUCONATE 4% CLEANSER FOR DECOLONIZATION TP SCH ×2 (04:36→21:23)
[2020-06-14] MEDS: MUPIROCIN 2% TOPICAL OINTMENT FOR DECOLONIZATION NS SCH ×3 (04:36→21:23)
[2020-06-14 07:06] LABS: BASO % 0.1 % (0-2.0); EOS % 0.3 % (0-4.5); HEMATOCRIT 34.9 % (32.4-45.2); HEMOGLOBIN 11.4 GM/dL (10.7-15.3); LYMPH % 11.9 % (8-40); MCH 28.5 pg (25.7-33.7); MCHC 32.6 g/dl (32.0-36.0); MEAN CELL VOLUME 87.3 fl (80-96); MONO % 8.6 % (3.8-10.2); NEUT % 79.1 % (42.8-82.8); PLATELET COUNT 254 K/MM3 (134-434); RBC 3.99 M/mm3 (3.60-5.2); RDW 16.9 % (11.6-15.6)
[2020-06-14] MEDS: INSULIN SLIDING SCALE (NOVOLOG) 1 VIAL SQ SCH ×4 (07:25→22:32)
[2020-06-14] MEDS: HEPARIN NA (PORCINE) 5,000 UNITS/ML 1ML VIAL SQ SCH ×3 (07:25→21:23)
[2020-06-14 07:30] LABS: CHLORIDE 108 mmol/L (98-107); SODIUM 143 mmol/L (136-145)
[2020-06-14 07:33] LABS: CALCIUM 10.6 mg/dL (8.5-10.1)
[2020-06-14 07:35] LABS: ANION GAP 7 MMOL/L (8-16); BLOOD UREA NITROGEN 63.9 mg/dL (7-18); CO2 27 mmol/L (21-32); GLUCOSE,RANDOM 74 mg/dL (74-106); MAGNESIUM 2.3 mg/dL (1.8-2.4)
[2020-06-14 07:37] LABS: CREATININE 3.8 mg/dL (0.55-1.3); PHOSPHOROUS 3.9 mg/dL (2.5-4.9); SGOT/AST 33 U/L (15-37); SGPT/ALT 14 U/L (13-61)
[2020-06-14 07:39] LABS: BILIRUBIN,TOTAL 0.4 mg/dL (0.2-1); TOT PROT 6.8 g/dl (6.4-8.2)
[2020-06-14 07:40] LABS: ALK PHOS 111 U/L (45-117)
[2020-06-14] MEDS ORDERED: FUROSEMIDE 40 MG TABLET (FP) PO SCH (10:15)
[2020-06-14] MEDS: NIFEdipine E.R. 30 MG TABLET PO SCH (10:37)
[2020-06-14] MEDS: ASPIRIN 81 MG CHEWABLE TABLETS PO SCH (10:37)
[2020-06-14] MEDS ORDERED: hydrALAZINE HCL 20 MG/ML VIAL IVPUSH ONE (13:02)
[2020-06-14] MEDS: BENZOCAINE/MENTH/CETYLPYRD CL 1 EACH LOZENGE MM PRN (20:11)
[2020-06-14] MEDS: hydrALAZINE HCL 25 MG TABLET (FP) PO SCH (21:23)
[2020-06-14] MEDS: DEXTROSE 5%-0.45% SALINE 1,000 ML IV SCH (21:23)
[2020-06-14] MEDS: GABAPENTIN 100 MG CAPSULE PO SCH (21:23)
[2020-06-15] MEDS: INSULIN SLIDING SCALE (NOVOLOG) 1 VIAL SQ SCH ×6 (01:45→21:42)
[2020-06-15] MEDS: HEPARIN NA (PORCINE) 5,000 UNITS/ML 1ML VIAL SQ SCH ×3 (06:46→21:30)
[2020-06-15 07:56] LABS: BLOOD UREA NITROGEN 51.7 mg/dL (7-18); CALCIUM 9.6 mg/dL (8.5-10.1)
[2020-06-15 07:58] LABS: CREATININE 3.6 mg/dL (0.55-1.3)
[2020-06-15 08:00] LABS: BILIRUBIN,TOTAL 0.2 mg/dL (0.2-1); TOT PROT 5.8 g/dl (6.4-8.2)
[2020-06-15 08:06] LABS: MAGNESIUM 2.2 mg/dL (1.8-2.4)
[2020-06-15 08:09] LABS: ALBUMIN 2.3 g/dl (3.4-5.0)
[2020-06-15 09:36] LABS: BASO % 0.4 % (0-2.0); EOS % 0.9 % (0-4.5); HEMATOCRIT 32.1 % (32.4-45.2); HEMOGLOBIN 10.6 GM/dL (10.7-15.3); MCH 29.2 pg (25.7-33.7); MCHC 32.9 g/dl (32.0-36.0); MEAN CELL VOLUME 88.8 fl (80-96); MEAN PLT VOLUME 8.4 fl (7.5-11.1); MONO % 7.8 % (3.8-10.2); NEUT % 74.9 % (42.8-82.8); PLATELET COUNT 228 K/MM3 (134-434); RBC 3.61 M/mm3 (3.60-5.2); RDW 17.1 % (11.6-15.6); WHITE BLOOD COUNT 7.8 K/mm3 (4.0-10.0)
[2020-06-15] MEDS: NIFEdipine E.R. 30 MG TABLET PO SCH (09:48)
[2020-06-15] MEDS: ASPIRIN 81 MG CHEWABLE TABLETS PO SCH (09:48)
[2020-06-15] MEDS: hydrALAZINE HCL 25 MG TABLET (FP) PO SCH ×2 (09:48→21:31)
[2020-06-15] MEDS: INSULIN (LEVEMIR) 100 UNITS/ML UNITS SQ SCH (10:00)
[2020-06-15] MEDS: MUPIROCIN 2% TOPICAL OINTMENT FOR DECOLONIZATION NS SCH ×2 (10:41→21:31)
[2020-06-15] MEDS ORDERED: PT OWN MED DRAWER 7, Y5N ONE (11:31)
[2020-06-15] MEDS ORDERED: PHENOL 177 ML SPRAY BOTTLE MM PRN (12:15)
[2020-06-15] MEDS: BENZOCAINE/MENTH/CETYLPYRD CL 1 EACH LOZENGE MM PRN (12:59)
[2020-06-15] MEDS: SODIUM CHLORIDE 0.45% 1,000 ML IV SCH (13:02)
[2020-06-15] MEDS ORDERED: ACETAMINOPHEN 325 MG TABLET (FP) PO PRN (13:15)
[2020-06-15] MEDS ORDERED: PANTOPRAZOLE 40 MG TABLET PO ONE (14:00)
[2020-06-15] MEDS: GABAPENTIN 100 MG CAPSULE PO SCH (21:31)
[2020-06-15] MEDS: CHLORHEXIDINE GLUCONATE 4% CLEANSER FOR DECOLONIZATION TP SCH (21:31)
[2020-06-16] MEDS: INSULIN SLIDING SCALE (NOVOLOG) 1 VIAL SQ SCH ×6 (02:00→21:56)
[2020-06-16] MEDS: HEPARIN NA (PORCINE) 5,000 UNITS/ML 1ML VIAL SQ SCH ×3 (06:06→21:53)
[2020-06-16] MEDS: SODIUM CHLORIDE 0.45% 1,000 ML IV SCH ×3 (07:27→17:46)
[2020-06-16] MEDS ORDERED: PT OWN MED DRAWER 7, Y5N ONE (09:31)
[2020-06-16] MEDS: ASPIRIN 81 MG CHEWABLE TABLETS PO SCH (09:34)
[2020-06-16] MEDS: NIFEdipine E.R. 30 MG TABLET PO SCH (09:34)
[2020-06-16] MEDS: hydrALAZINE HCL 25 MG TABLET (FP) PO SCH (09:34)
[2020-06-16] MEDS: MUPIROCIN 2% TOPICAL OINTMENT FOR DECOLONIZATION NS SCH ×2 (09:35→22:11)
[2020-06-16] MEDS: PANTOPRAZOLE 40 MG TABLET PO SCH (09:35)
[2020-06-16] MEDS: INSULIN (LEVEMIR) 100 UNITS/ML UNITS SQ SCH (09:36)
[2020-06-16] MEDS ORDERED: INSULIN (NOVOLOG) ASPART 100 UNITS/ML 10ML VIAL ONE ×2 (09:37→20:33)
[2020-06-16] MEDS: SUCRALFATE 1 GM/10 ML UNIT DOSE CUPS PO SCH ×2 (17:44→21:44)
[2020-06-16] MEDS ORDERED: hydrALAZINE HCL 25 MG TABLET (FP) PO ONE (18:21)
[2020-06-16] MEDS ORDERED: MORPHINE SULFATE 2 MG/ML VIAL IVPB PRN ×2 (18:26→19:09)
[2020-06-16] MEDS: LEVOTHYROXINE SODIUM 100 MCG VIAL IVPUSH SCH (20:10)
[2020-06-16] MEDS ORDERED: INSULIN (LEVEMIR) 100 UNITS/ML UNITS SQ ONE (21:04)
[2020-06-16] MEDS: ATORVASTATIN CA 40 MG TABLET (FP) PO SCH (21:43)
[2020-06-16] MEDS: hydrALAZINE HCL 50 MG TABLET (FP) PO SCH (21:43)
[2020-06-16] MEDS: GABAPENTIN 100 MG CAPSULE PO SCH (21:43)
[2020-06-16] MEDS: CHLORHEXIDINE GLUCONATE 4% CLEANSER FOR DECOLONIZATION TP SCH (21:58)
[2020-06-16] MEDS ORDERED: hydrALAZINE HCL 25 MG TABLET (FP) PO SCH (22:00)
[2020-06-17] MEDS: SODIUM CHLORIDE 0.45% 1,000 ML IV SCH ×4 (01:39→18:51)
[2020-06-17] MEDS: HEPARIN NA (PORCINE) 5,000 UNITS/ML 1ML VIAL SQ SCH ×3 (05:42→21:18)
[2020-06-17] MEDS: INSULIN SLIDING SCALE (NOVOLOG) 1 VIAL SQ SCH ×4 (06:06→21:20)
[2020-06-17] MEDS: INSULIN (LEVEMIR) 100 UNITS/ML UNITS SQ SCH (08:34)
[2020-06-17 08:48] LABS: BASO % 0.4 % (0-2.0); HEMOGLOBIN 10.1 GM/dL (10.7-15.3); MCH 29.4 pg (25.7-33.7); MCHC 33.7 g/dl (32.0-36.0); MEAN CELL VOLUME 87.4 fl (80-96); MEAN PLT VOLUME 8.1 fl (7.5-11.1); MONO % 8.7 % (3.8-10.2); NEUT % 67.9 % (42.8-82.8); PLATELET COUNT 201 K/MM3 (134-434); RBC 3.44 M/mm3 (3.60-5.2); RDW 16.6 % (11.6-15.6); WHITE BLOOD COUNT 5.2 K/mm3 (4.0-10.0)
[2020-06-17 09:46] LABS: ALBUMIN 2.4 g/dl (3.4-5.0); BILIRUBIN,TOTAL 0.2 mg/dL (0.2-1); BLOOD UREA NITROGEN 48.2 mg/dL (7-18); CALCIUM 9.7 mg/dL (8.5-10.1); CREATININE 3.9 mg/dL (0.55-1.3); MAGNESIUM 2.2 mg/dL (1.8-2.4); TOT PROT 5.7 g/dl (6.4-8.2)
[2020-06-17] MEDS ORDERED: PT OWN MED DRAWER 7, Y5N ONE ×3 (10:24→14:02)
[2020-06-17] MEDS: SUCRALFATE 1 GM/10 ML UNIT DOSE CUPS PO SCH ×4 (10:46→21:20)
[2020-06-17] MEDS: PANTOPRAZOLE 40 MG TABLET PO SCH (10:47)
[2020-06-17] MEDS: hydrALAZINE HCL 50 MG TABLET (FP) PO SCH ×2 (10:48→21:17)
[2020-06-17] MEDS: ASPIRIN 81 MG CHEWABLE TABLETS PO SCH (10:48)
[2020-06-17] MEDS: MUPIROCIN 2% TOPICAL OINTMENT FOR DECOLONIZATION NS SCH ×2 (10:49→21:22)
[2020-06-17] MEDS: NIFEdipine E.R. 30 MG TABLET PO SCH (10:49)
[2020-06-17] MEDS: LEVOTHYROXINE SODIUM 100 MCG VIAL IVPUSH SCH (10:53)
[2020-06-17] MEDS ORDERED: ACETAMINOPHEN 1000 MG/100 ML VIAL (NON FORMULARY) IVPB PRN (12:51)
[2020-06-17] MEDS: MAG HYDROX/ALH/SMC/DPHA/LIDO 240 ML MOUTHWASH MM SCH ×2 (14:04→17:34)
[2020-06-17] MEDS: GABAPENTIN 100 MG CAPSULE PO SCH (21:17)
[2020-06-17] MEDS: ATORVASTATIN CA 40 MG TABLET (FP) PO SCH (21:17)
[2020-06-17] MEDS: CHLORHEXIDINE GLUCONATE 4% CLEANSER FOR DECOLONIZATION TP SCH (21:24)
[2020-06-18] MEDS: MAG HYDROX/ALH/SMC/DPHA/LIDO 240 ML MOUTHWASH MM SCH ×4 (00:11→17:00)
[2020-06-18] MEDS: SODIUM CHLORIDE 0.45% 1,000 ML IV SCH ×2 (02:57→12:42)
[2020-06-18] MEDS: HEPARIN NA (PORCINE) 5,000 UNITS/ML 1ML VIAL SQ SCH ×3 (05:49→22:04)
[2020-06-18] MEDS: INSULIN (LEVEMIR) 100 UNITS/ML UNITS SQ SCH (06:29)
[2020-06-18] MEDS: INSULIN SLIDING SCALE (NOVOLOG) 1 VIAL SQ SCH ×4 (06:29→22:04)
[2020-06-18 07:42] LABS: BASO % 0.4 % (0-2.0); HEMATOCRIT 27.7 % (32.4-45.2); HEMOGLOBIN 9.1 GM/dL (10.7-15.3); LYMPH % 25.7 % (8-40); MCHC 32.9 g/dl (32.0-36.0); MEAN CELL VOLUME 88.3 fl (80-96); MEAN PLT VOLUME 8.8 fl (7.5-11.1); MONO % 10.4 % (3.8-10.2); NEUT % 62.5 % (42.8-82.8); PLATELET COUNT 197 K/MM3 (134-434); RBC 3.14 M/mm3 (3.60-5.2); RDW 16.4 % (11.6-15.6)
[2020-06-18 08:23] LABS: ALBUMIN 2.3 g/dl (3.4-5.0); BLOOD UREA NITROGEN 43.7 mg/dL (7-18)
[2020-06-18 08:25] LABS: CALCIUM 9.2 mg/dL (8.5-10.1)
[2020-06-18 08:26] LABS: CREATININE 3.6 mg/dL (0.55-1.3)
[2020-06-18 08:28] LABS: BILIRUBIN,TOTAL 0.3 mg/dL (0.2-1); TOT PROT 5.1 g/dl (6.4-8.2)
[2020-06-18] MEDS: ASPIRIN 81 MG CHEWABLE TABLETS PO SCH (11:21)
[2020-06-18] MEDS: hydrALAZINE HCL 50 MG TABLET (FP) PO SCH ×2 (11:21→22:04)
[2020-06-18] MEDS: PANTOPRAZOLE 40 MG TABLET PO SCH (11:21)
[2020-06-18] MEDS: NIFEdipine E.R. 30 MG TABLET PO SCH (11:22)
[2020-06-18] MEDS: FLUCONAZOLE 100 MG/NS 50 ML IVPB SCH (12:28)
[2020-06-18] MEDS ORDERED: INSULIN (NOVOLOG) ASPART 100 UNITS/ML 10ML VIAL ONE ×2 (12:34→21:10)
[2020-06-18] MEDS: LEVOTHYROXINE SODIUM 100 MCG VIAL IVPUSH SCH (12:41)
[2020-06-18] MEDS: GABAPENTIN 100 MG CAPSULE PO SCH (22:04)
[2020-06-19] MEDS: MAG HYDROX/ALH/SMC/DPHA/LIDO 240 ML MOUTHWASH MM SCH ×4 (00:10→17:20)
[2020-06-19] MEDS ORDERED: PT OWN MED DRAWER 7, Y5N ONE ×4 (00:20→14:51)
[2020-06-19] MEDS: HEPARIN NA (PORCINE) 5,000 UNITS/ML 1ML VIAL SQ SCH ×2 (06:01→22:10)
[2020-06-19] MEDS: INSULIN (LEVEMIR) 100 UNITS/ML UNITS SQ SCH (07:01)
[2020-06-19] MEDS: INSULIN SLIDING SCALE (NOVOLOG) 1 VIAL SQ SCH ×4 (07:02→22:04)
[2020-06-19 08:05] LABS: BASO % 0.4 % (0-2.0); EOS % 1.3 % (0-4.5); HEMATOCRIT 27.8 % (32.4-45.2); HEMOGLOBIN 9.4 GM/dL (10.7-15.3); LYMPH % 36.3 % (8-40); MCH 29.5 pg (25.7-33.7); MCHC 33.8 g/dl (32.0-36.0); MEAN CELL VOLUME 87.1 fl (80-96); MEAN PLT VOLUME 8.6 fl (7.5-11.1); MONO % 9.8 % (3.8-10.2); NEUT % 52.2 % (42.8-82.8); PLATELET COUNT 207 K/MM3 (134-434); RDW 16.4 % (11.6-15.6); WHITE BLOOD COUNT 4.1 K/mm3 (4.0-10.0)
[2020-06-19 08:27] LABS: BLOOD UREA NITROGEN 38.3 mg/dL (7-18); CALCIUM 9.3 mg/dL (8.5-10.1); MAGNESIUM 2.1 mg/dL (1.8-2.4)
[2020-06-19 08:30] LABS: ALBUMIN 2.1 g/dl (3.4-5.0); CREATININE 3.6 mg/dL (0.55-1.3)
[2020-06-19 08:32] LABS: BILIRUBIN,TOTAL 0.2 mg/dL (0.2-1)
[2020-06-19 08:53] LABS: INR 1.45 (0.83-1.09); PROTHROMBIN TIME (PATIENT) 17.7 SEC (9.7-13.0)
[2020-06-19] MEDS: hydrALAZINE HCL 50 MG TABLET (FP) PO SCH ×2 (09:39→22:10)
[2020-06-19] MEDS: ASPIRIN 81 MG CHEWABLE TABLETS PO SCH (09:39)
[2020-06-19] MEDS: NIFEdipine E.R. 30 MG TABLET PO SCH (09:40)
[2020-06-19] MEDS: FLUCONAZOLE 100 MG/NS 50 ML IVPB SCH (09:56)
[2020-06-19] MEDS: PANTOPRAZOLE 40 MG TABLET PO SCH (09:56)
[2020-06-19] MEDS: SODIUM CHLORIDE 0.45% 1,000 ML IV SCH (13:02)
[2020-06-19] MEDS: PANTOPRAZOLE SODIUM 80 MG in SODIUM CHLORIDE 100 ML IVPB SCH (15:11)
[2020-06-19] MEDS: LEVOTHYROXINE SODIUM 100 MCG VIAL IVPUSH SCH (15:12)
[2020-06-19] MEDS ORDERED: INSULIN (NOVOLOG) ASPART 100 UNITS/ML 10ML VIAL ONE (20:45)
[2020-06-19] MEDS ORDERED: PANTOPRAZOLE 40 MG TABLET PO SCH (22:00)
[2020-06-19] MEDS: GABAPENTIN 100 MG CAPSULE PO SCH (22:10)
[2020-06-20] MEDS: MAG HYDROX/ALH/SMC/DPHA/LIDO 240 ML MOUTHWASH MM SCH ×5 (00:54→23:58)
[2020-06-20] MEDS: PANTOPRAZOLE SODIUM 80 MG in SODIUM CHLORIDE 100 ML IVPB SCH ×3 (03:52→19:20)
[2020-06-20] MEDS ORDERED: INSULIN (NOVOLOG) ASPART 100 UNITS/ML 10ML VIAL ONE (05:13)
[2020-06-20] MEDS ORDERED: INSULIN (LEVEMIR) 100 UNITS/ML UNITS SQ ONE (05:13)
[2020-06-20] MEDS: HEPARIN NA (PORCINE) 5,000 UNITS/ML 1ML VIAL SQ SCH ×3 (06:03→22:06)
[2020-06-20] MEDS: INSULIN (LEVEMIR) 100 UNITS/ML UNITS SQ SCH (06:04)
[2020-06-20] MEDS: INSULIN SLIDING SCALE (NOVOLOG) 1 VIAL SQ SCH ×4 (06:04→22:07)
[2020-06-20 07:51] LABS: BASO % 0.6 % (0-2.0); EOS % 1.2 % (0-4.5); HEMATOCRIT 26.8 % (32.4-45.2); LYMPH % 24.4 % (8-40); MCH 29.3 pg (25.7-33.7); MCHC 33.4 g/dl (32.0-36.0); MEAN CELL VOLUME 87.7 fl (80-96); MEAN PLT VOLUME 8.6 fl (7.5-11.1); NEUT % 62.8 % (42.8-82.8); PLATELET COUNT 207 K/MM3 (134-434); RBC 3.06 M/mm3 (3.60-5.2); RDW 16.4 % (11.6-15.6); WHITE BLOOD COUNT 3.8 K/mm3 (4.0-10.0)
[2020-06-20 08:10] LABS: BLOOD UREA NITROGEN 34.2 mg/dL (7-18); CALCIUM 9.2 mg/dL (8.5-10.1)
[2020-06-20 08:11] LABS: ALBUMIN 2.2 g/dl (3.4-5.0); MAGNESIUM 2.1 mg/dL (1.8-2.4)
[2020-06-20 08:14] LABS: CREATININE 3.6 mg/dL (0.55-1.3)
[2020-06-20 08:15] LABS: BILIRUBIN,TOTAL 0.2 mg/dL (0.2-1); TOT PROT 5.1 g/dl (6.4-8.2)
[2020-06-20] MEDS ORDERED: PT OWN MED DRAWER 7, Y5N ONE (10:14)
[2020-06-20] MEDS: FLUCONAZOLE 100 MG/NS 50 ML IVPB SCH (10:20)
[2020-06-20] MEDS: hydrALAZINE HCL 50 MG TABLET (FP) PO SCH ×2 (10:20→22:06)
[2020-06-20] MEDS: ASPIRIN 81 MG CHEWABLE TABLETS PO SCH (10:20)
[2020-06-20] MEDS: LEVOTHYROXINE SODIUM 100 MCG VIAL IVPUSH SCH (10:21)
[2020-06-20] MEDS: NIFEdipine E.R. 30 MG TABLET PO SCH (10:21)
[2020-06-20] MEDS: SODIUM CHLORIDE 0.45% 1,000 ML IV SCH (14:19)
[2020-06-20] MEDS: GABAPENTIN 100 MG CAPSULE PO SCH (22:06)
[2020-06-21] MEDS: PANTOPRAZOLE SODIUM 80 MG in SODIUM CHLORIDE 100 ML IVPB SCH ×3 (03:24→16:00)
[2020-06-21] MEDS: HEPARIN NA (PORCINE) 5,000 UNITS/ML 1ML VIAL SQ SCH ×3 (05:56→22:06)
[2020-06-21] MEDS: MAG HYDROX/ALH/SMC/DPHA/LIDO 240 ML MOUTHWASH MM SCH ×4 (05:56→23:43)
[2020-06-21] MEDS: INSULIN SLIDING SCALE (NOVOLOG) 1 VIAL SQ SCH ×4 (06:04→22:07)
[2020-06-21] MEDS: INSULIN (LEVEMIR) 100 UNITS/ML UNITS SQ SCH (06:04)
[2020-06-21] MEDS ORDERED: PT OWN MED DRAWER 7, Y5N ONE (09:50)
[2020-06-21] MEDS: NIFEdipine E.R. 30 MG TABLET PO SCH (09:54)
[2020-06-21] MEDS: LEVOTHYROXINE SODIUM 100 MCG VIAL IVPUSH SCH (09:54)
[2020-06-21] MEDS: MULTIVIT-MINERALS ORAL LIQUID PO SCH (09:54)
[2020-06-21] MEDS: FLUCONAZOLE 100 MG/NS 50 ML IVPB SCH (09:54)
[2020-06-21] MEDS: hydrALAZINE HCL 50 MG TABLET (FP) PO SCH ×2 (09:54→22:07)
[2020-06-21] MEDS: ASPIRIN 81 MG CHEWABLE TABLETS PO SCH (09:54)
[2020-06-21 11:01] LABS: BASO % 0.5 % (0-2.0); EOS % 1.3 % (0-4.5); HEMATOCRIT 28.2 % (32.4-45.2); HEMOGLOBIN 9.3 GM/dL (10.7-15.3); LYMPH % 34.6 % (8-40); MCH 29.2 pg (25.7-33.7); MCHC 32.8 g/dl (32.0-36.0); MEAN CELL VOLUME 89.2 fl (80-96); MONO % 13.4 % (3.8-10.2); NEUT % 50.2 % (42.8-82.8); PLATELET COUNT 217 K/MM3 (134-434); RBC 3.17 M/mm3 (3.60-5.2); RDW 16.6 % (11.6-15.6); WHITE BLOOD COUNT 4.6 K/mm3 (4.0-10.0)
[2020-06-21 11:21] LABS: CALCIUM 9.2 mg/dL (8.5-10.1)
[2020-06-21 11:22] LABS: ALBUMIN 2.3 g/dl (3.4-5.0); BLOOD UREA NITROGEN 28.4 mg/dL (7-18)
[2020-06-21 11:25] LABS: CREATININE 3.6 mg/dL (0.55-1.3)
[2020-06-21 11:26] LABS: BILIRUBIN,TOTAL 0.2 mg/dL (0.2-1)
[2020-06-21] MEDS: SODIUM CHLORIDE 0.45% 1,000 ML IV SCH ×2 (14:25→18:00)
[2020-06-21] MEDS: GABAPENTIN 100 MG CAPSULE PO SCH (22:07)
[2020-06-22] MEDS: PANTOPRAZOLE SODIUM 80 MG in SODIUM CHLORIDE 100 ML IVPB SCH (01:49)
[2020-06-22] MEDS: HEPARIN NA (PORCINE) 5,000 UNITS/ML 1ML VIAL SQ SCH ×2 (06:54→16:02)
[2020-06-22] MEDS: INSULIN (LEVEMIR) 100 UNITS/ML UNITS SQ SCH (06:54)
[2020-06-22] MEDS: MAG HYDROX/ALH/SMC/DPHA/LIDO 240 ML MOUTHWASH MM SCH ×2 (06:54→15:55)
[2020-06-22] MEDS: INSULIN SLIDING SCALE (NOVOLOG) 1 VIAL SQ SCH ×2 (06:55→15:55)
[2020-06-22] MEDS ORDERED: PANTOPRAZOLE 40 MG TABLET PO SCH (10:00)
[2020-06-22] MEDS ORDERED: PT OWN MED DRAWER 7, Y5N ONE ×3 (10:21→16:09)
[2020-06-22] MEDS: ASPIRIN 81 MG CHEWABLE TABLETS PO SCH (10:23)
[2020-06-22] MEDS: MULTIVIT-MINERALS ORAL LIQUID PO SCH (10:24)
[2020-06-22] MEDS: hydrALAZINE HCL 50 MG TABLET (FP) PO SCH (10:24)
[2020-06-22] MEDS: SUCRALFATE 1 GM/10 ML UNIT DOSE CUPS PO SCH ×2 (10:24→10:27)
[2020-06-22] MEDS: NIFEdipine E.R. 30 MG TABLET PO SCH (10:25)
[2020-06-22] MEDS: LEVOTHYROXINE SODIUM 100 MCG VIAL IVPUSH SCH (10:25)
[2020-06-22 12:03] LABS: BASO % 0.4 % (0-2.0); EOS % 0.8 % (0-4.5); HEMATOCRIT 30.2 % (32.4-45.2); HEMOGLOBIN 9.7 GM/dL (10.7-15.3); LYMPH % 29.8 % (8-40); MCH 28.9 pg (25.7-33.7); MCHC 32.2 g/dl (32.0-36.0); MEAN CELL VOLUME 89.6 fl (80-96); MONO % 11.6 % (3.8-10.2); NEUT % 57.4 % (42.8-82.8); PLATELET COUNT 231 K/MM3 (134-434); RBC 3.37 M/mm3 (3.60-5.2); RDW 16.9 % (11.6-15.6); WHITE BLOOD COUNT 4.4 K/mm3 (4.0-10.0)
[2020-06-22 12:43] LABS: ALBUMIN 2.2 g/dl (3.4-5.0); BILIRUBIN,TOTAL 0.2 mg/dL (0.2-1); BLOOD UREA NITROGEN 25.5 mg/dL (7-18); CALCIUM 9.3 mg/dL (8.5-10.1); CREATININE 3.6 mg/dL (0.55-1.3); TOT PROT 5.4 g/dl (6.4-8.2)
[2020-06-22] MEDS ORDERED: ERGOCALCIFEROL 8,000 UNITS/ML DROPSBTL PO ONE (13:00)
[2020-06-22 15:56] VITALS: BP 92/54; PULSE 77; TEMP 98
== END 2020-06-22 18:07 | disposition home health service (06) | DRG 638 ==
LOC: JER 03:39 → JERBED 08:55 → JICU 06-14 01:45 → J8W 06-16 06:30
PROVIDERS: ADMIT Internal Medicine Pulmonary Disease; ATTEND Nurse Practitioner Family
PROC: 0DB58ZX Excision of Esophagus, Via Natural or Artificial Opening Endoscopic, Diagnostic (ICD-10-PCS; 2020-06-19)
PROC: 0DB68ZX Excision of Stomach, Via Natural or Artificial Opening Endoscopic, Diagnostic (ICD-10-PCS; 2020-06-19)
PROC: 0DB98ZX Excision of Duodenum, Via Natural or Artificial Opening Endoscopic, Diagnostic (ICD-10-PCS; principal; 2020-06-19 12:50)
DX: E11.00 Type 2 diabetes mellitus with hyperosmolarity without nonketotic hyperglycemic-hyperosmolar coma (NKHHC) (principal); N18.4 Chronic kidney disease, stage 4 (severe); N17.9 Acute kidney failure, unspecified; E87.2 Acidosis; I24.8 Other forms of acute ischemic heart disease; D68.2 Hereditary deficiency of other clotting factors; E11.10 Type 2 diabetes mellitus with ketoacidosis without coma; I25.10 Atherosclerotic heart disease of native coronary artery without angina pectoris; I10 Essential (primary) hypertension; E78.5 Hyperlipidemia, unspecified; G20 Parkinson's disease; D63.1 Anemia in chronic kidney disease; E03.9 Hypothyroidism, unspecified; E83.52 Hypercalcemia; K20.90 Esophagitis, unspecified without bleeding; Z95.1 Presence of aortocoronary bypass graft; K21.9 Gastro-esophageal reflux disease without esophagitis; K29.50 Unspecified chronic gastritis without bleeding
CPT/HCPCS: 36415; 36600; 71045-TC-FY; 74174-TC; 74176-TC; 80048; 80053; 81003; 82010; 82272; 82306; 82310; 82550; 82803; 82962; 83605; 83690; 83735; 83970; 84100; 84439; 84443; 84484; 85025; 85610; 85730; 87077; 87086; 88305-TC; 93005; 93010; 93306-TC; 97116-GP; 97161-GP; 99285-25; C9803; J0131; J1644; U0003; U0005

== ENCOUNTER 2020-07-15 17:43 | Inpatient (IN) | payer OTHER ==
[2020-07-15] MEDS ORDERED: LACTATED RINGERS SOLUTION 1000 ML INFUS.BAG IV ONE (18:27)
[2020-07-15 19:04] LABS: VENOUS BASE EXCESS -13.1 mmol/L (-2-2); VENOUS PCO2 37.3 mmHg (38-52)
[2020-07-15 19:05] LABS: BASO % 0.5 % (0-2.0); EOS % 0.1 % (0-4.5); HEMOGLOBIN 10.9 GM/dL (10.7-15.3); LYMPH % 13.8 % (8-40); MCH 29.4 pg (25.7-33.7); MCHC 32.1 g/dl (32.0-36.0); MEAN CELL VOLUME 91.4 fl (80-96); MEAN PLT VOLUME 9.4 fl (7.5-11.1); MONO % 5.8 % (3.8-10.2); NEUT % 79.8 % (42.8-82.8); PLATELET COUNT 296 K/MM3 (134-434); RBC 3.72 M/mm3 (3.60-5.2); RDW 17.1 % (11.6-15.6); VENOUS PH 7.195 (7.310-7.410); WHITE BLOOD COUNT 5.6 K/mm3 (4.0-10.0)
[2020-07-15] MEDS ORDERED: SODIUM CHLORIDE 1,000 ML IV STA (19:12)
[2020-07-15] MEDS ORDERED: ACETAMINOPHEN 1000 MG/100 ML BAG IVPB ONE (19:17)
[2020-07-15 19:29] LABS: CHLORIDE 94 mmol/L (98-107); SODIUM 132 mmol/L (136-145)
[2020-07-15 19:31] LABS: CALCIUM 10.3 mg/dL (8.5-10.1)
[2020-07-15 19:32] LABS: ALBUMIN 3.4 g/dl (3.4-5.0); ANION GAP 22 MMOL/L (8-16); BLOOD UREA NITROGEN 42.2 mg/dL (7-18); CO2 16 mmol/L (21-32); MAGNESIUM 2.3 mg/dL (1.8-2.4)
[2020-07-15 19:35] LABS: CREATININE 4.1 mg/dL (0.55-1.3); SGOT/AST 12 U/L (15-37); SGPT/ALT 13 U/L (13-61)
[2020-07-15] MEDS ORDERED: ACETAMINOPHEN INJECTION 100 ML IVPB ONE (19:35)
[2020-07-15 19:36] LABS: BILIRUBIN,TOTAL 0.5 mg/dL (0.2-1); TOT PROT 7.4 g/dl (6.4-8.2)
[2020-07-15 19:37] LABS: ALK PHOS 105 U/L (45-117)
[2020-07-15 19:45] LABS: GLUCOSE,RANDOM 612 mg/dL (74-106)
[2020-07-15] MEDS ORDERED: morphine CARPU-JECT 2 MG/1 ML DISP.SYRIN IVPUSH ONE (19:56)
[2020-07-15] MEDS ORDERED: INSULIN REGULAR HUMAN 100 UNITS/ML *VIAL* (FOR IVP) IVPUSH ONE (21:14)
[2020-07-15] MEDS ORDERED: INSULIN REGULAR 100 UNITS in SODIUM CHLORIDE 99 ML IVPB SCH (21:15)
[2020-07-15] MEDS ORDERED: SODIUM CHLORIDE 0.9%/KCL 20 MEQ/1,000 ML INFUS.BAG IV SCH (21:15)
[2020-07-15 22:30] LABS: EPI CELLS 11 /uL (0-25.1); HYALINE CASTS 1 /uL (0-3.1); URINE APPEARANCE CLOUDY; URINE BACTERIA 259 /uL (0-1359); URINE BILIRUBIN NEGATIVE (NEGATIVE); URINE COLOR YELLOW; URINE GLUCOSE (UA) 3+ (NEGATIVE); URINE KETONE 3+ (NEGATIVE); URINE LEUK ESTERASE NEGATIVE (NEGATIVE); URINE NITRITE NEGATIVE (NEGATIVE); URINE PROTEIN 4+ (NEGATIVE); URINE RBC 14 /uL (0-23.9); URINE UROBILINOGEN 0.2 mg/dL (0.2-1.0)
[2020-07-15] MEDS ORDERED: SODIUM CHLORIDE 1,000 ML IV SCH (22:45)
[2020-07-16] MEDS ORDERED: METOCLOPRAMIDE HCL INJECTION 10 MG/2 ML VIAL IVPUSH ONE (00:33)
[2020-07-16] MEDS: HEPARIN NA (PORCINE) 5,000 UNITS/ML 1ML VIAL SQ SCH ×5 (00:37→21:16)
[2020-07-16] MEDS: MUPIROCIN 2% TOPICAL OINTMENT FOR DECOLONIZATION NS SCH ×3 (00:51→21:15)
[2020-07-16 01:00] LABS: CHLORIDE 100 mmol/L (98-107); SODIUM 138 mmol/L (136-145)
[2020-07-16 01:01] LABS: CALCIUM 9.8 mg/dL (8.5-10.1)
[2020-07-16 01:02] LABS: ANION GAP 19 MMOL/L (8-16); CO2 20 mmol/L (21-32); MAGNESIUM 2.1 mg/dL (1.8-2.4)
[2020-07-16 01:05] LABS: CREATININE 3.7 mg/dL (0.55-1.3); PHOSPHOROUS 3.2 mg/dL (2.5-4.9)
[2020-07-16 01:12] LABS: LACTIC ACID 2.9 mmol/L (0.4-2.0)
[2020-07-16 01:12] LABS: GLUCOSE,RANDOM 411 mg/dL (74-106); LIPASE 1806 U/L (73-393)
[2020-07-16] MEDS ORDERED: SODIUM CHLORIDE 1,000 ML with POTASSIUM CHLORIDE 20 MEQ IV SCH (01:16)
[2020-07-16 03:36] LABS: YEAST NONE SEEN (NEGATIVE)
[2020-07-16 04:27] LABS: CALCIUM 9.7 mg/dL (8.5-10.1)
[2020-07-16 04:28] LABS: BLOOD UREA NITROGEN 44.3 mg/dL (7-18)
[2020-07-16] MEDS ORDERED: D5-NS + 20 MEQ KCL - 20 MEQ/1,000 ML INFUS.BAG IV SCH (04:30)
[2020-07-16] MEDS ORDERED: D5-1/2NS+20 MEQ KCL - 20 MEQ/1,000 ML INFUS.BAG IV SCH (04:30)
[2020-07-16 04:31] LABS: CREATININE 3.5 mg/dL (0.55-1.3)
[2020-07-16] MEDS ORDERED: SODIUM CHLORIDE 0.9%/KCL 20 MEQ/1,000 ML INFUS.BAG IV SCH (04:45)
[2020-07-16] MEDS: INSULIN (LEVEMIR) 100 UNITS/ML UNITS SQ SCH ×2 (05:44→21:16)
[2020-07-16 06:01] LABS: BASO % 0.3 % (0-2.0); EOS % 0.1 % (0-4.5); HEMATOCRIT 28.4 % (32.4-45.2); HEMOGLOBIN 9.7 GM/dL (10.7-15.3); MCH 29.6 pg (25.7-33.7); MEAN CELL VOLUME 86.9 fl (80-96); MEAN PLT VOLUME 8.5 fl (7.5-11.1); MONO % 9.5 % (3.8-10.2); NEUT % 79.1 % (42.8-82.8); PLATELET COUNT 282 K/MM3 (134-434); RBC 3.26 M/mm3 (3.60-5.2); RDW 16.8 % (11.6-15.6)
[2020-07-16 06:11] LABS: VENOUS BASE EXCESS -3.2 mmol/L (-2-2); VENOUS O2 SATURATION 51.7 % (70-80); VENOUS PCO2 49.5 mmHg (38-52); VENOUS PH 7.293 (7.310-7.410)
[2020-07-16] MEDS: INSULIN SLIDING SCALE (NOVOLOG) 1 VIAL SQ SCH ×4 (06:15→21:16)
[2020-07-16 06:39] LABS: CALCIUM 9.2 mg/dL (8.5-10.1)
[2020-07-16 06:40] LABS: ALBUMIN 2.9 g/dl (3.4-5.0); BLOOD UREA NITROGEN 42.6 mg/dL (7-18)
[2020-07-16 06:42] LABS: CREATININE 3.3 mg/dL (0.55-1.3)
[2020-07-16 06:43] LABS: PHOSPHOROUS 2.6 mg/dL (2.5-4.9)
[2020-07-16 06:44] LABS: BILIRUBIN,TOTAL 0.5 mg/dL (0.2-1); TOT PROT 6.1 g/dl (6.4-8.2)
[2020-07-16] MEDS ORDERED: PT OWN MED DRAWER 7, Y5N ONE (09:41)
[2020-07-16] MEDS: CARVEDILOL 6.25 MG TABLET (FP) PO SCH ×2 (09:42→21:16)
[2020-07-16] MEDS ORDERED: ASPIRIN 81 MG CHEWABLE TABLETS PO SCH (10:00)
[2020-07-16] MEDS ORDERED: SODIUM CHLORIDE 1,000 ML IV SCH ×2 (10:00→11:00)
[2020-07-16] MEDS ORDERED: PANTOPRAZOLE SODIUM 40 MG VIAL IVPUSH SCH (10:00)
[2020-07-16] MEDS ORDERED: INSULIN (LEVEMIR) 100 UNITS/ML UNITS SQ SCH (10:00)
[2020-07-16 16:28] VITALS: BMI 24.0
[2020-07-16] MEDS ORDERED: ACETAMINOPHEN 325 MG TABLET (FP) PO ONE (19:05)
[2020-07-16] MEDS ORDERED: ACETAMINOPHEN 1000 MG/100 ML BAG IVPB ONE (19:09)
[2020-07-16] MEDS: HYDROmorphone HCL 2 MG TABLET PO PRN (20:35)
[2020-07-16] MEDS: DOCUSATE SODIUM 100 MG CAPSULE (FP) PO PRN (20:38)
[2020-07-16] MEDS ORDERED: HYDROmorphone HCL 2 MG TABLET PO PRN (22:00)
[2020-07-16] MEDS ORDERED: CHLORHEXIDINE GLUCONATE 4% CLEANSER FOR DECOLONIZATION TP SCH (22:00)
[2020-07-16] MEDS: SODIUM CHLORIDE 1,000 ML IV SCH (22:30)
[2020-07-17] MEDS ORDERED: ATORVASTATIN CA 20 MG TABLET (FP) PO ONE (06:15)
[2020-07-17] MEDS: INSULIN SLIDING SCALE (NOVOLOG) 1 VIAL SQ SCH ×4 (06:44→21:21)
[2020-07-17] MEDS ORDERED: DEXTROSE 50%-WATER - 25 GM/50 ML VIAL IVPUSH ONE (06:54)
[2020-07-17] MEDS ORDERED: DEXTROSE 50%-WATER 25 GM/50 ML DISP.SYRIN ONE (06:59)
[2020-07-17] MEDS ORDERED: INSULIN (LEVEMIR) 100 UNITS/ML UNITS SQ SCH (07:00)
[2020-07-17] MEDS ORDERED: INSULIN SLIDING SCALE (NOVOLOG) 1 VIAL SQ SCH (07:00)
[2020-07-17] MEDS: HEPARIN NA (PORCINE) 5,000 UNITS/ML 1ML VIAL SQ SCH ×3 (07:02→21:21)
[2020-07-17] MEDS ORDERED: PT OWN MED DRAWER 7, Y5N ONE (09:26)
[2020-07-17] MEDS: PANTOPRAZOLE SODIUM 40 MG VIAL IVPUSH SCH (09:36)
[2020-07-17] MEDS: CARVEDILOL 6.25 MG TABLET (FP) PO SCH ×2 (09:36→21:18)
[2020-07-17] MEDS: LEVOTHYROXINE SODIUM 100 MCG VIAL IVPUSH SCH (09:37)
[2020-07-17] MEDS ORDERED: MUPIROCIN 2% TOPICAL OINTMENT FOR DECOLONIZATION NS SCH (10:00)
[2020-07-17] MEDS ORDERED: ASPIRIN 81 MG CHEWABLE TABLETS PO SCH (10:00)
[2020-07-17] MEDS: HYDROmorphone HCL 2 MG TABLET PO PRN (18:56)
[2020-07-17] MEDS: DOCUSATE SODIUM 100 MG CAPSULE (FP) PO PRN (21:18)
[2020-07-17] MEDS: SODIUM CHLORIDE 1,000 ML IV SCH (21:22)
[2020-07-17] MEDS ORDERED: CHLORHEXIDINE GLUCONATE 4% CLEANSER FOR DECOLONIZATION TP SCH (22:00)
[2020-07-18] MEDS: HEPARIN NA (PORCINE) 5,000 UNITS/ML 1ML VIAL SQ SCH ×3 (06:42→21:30)
[2020-07-18] MEDS: INSULIN SLIDING SCALE (NOVOLOG) 1 VIAL SQ SCH ×4 (06:43→21:31)
[2020-07-18 06:56] LABS: BASO % 0.6 % (0-2.0); EOS % 1.2 % (0-4.5); HEMATOCRIT 25.7 % (32.4-45.2); HEMOGLOBIN 8.6 GM/dL (10.7-15.3); LYMPH % 38.1 % (8-40); MCH 29.7 pg (25.7-33.7); MCHC 33.4 g/dl (32.0-36.0); MEAN CELL VOLUME 88.9 fl (80-96); MONO % 8.6 % (3.8-10.2); NEUT % 51.5 % (42.8-82.8); PLATELET COUNT 183 K/MM3 (134-434); RBC 2.89 M/mm3 (3.60-5.2); RDW 17.5 % (11.6-15.6); WHITE BLOOD COUNT 4.1 K/mm3 (4.0-10.0)
[2020-07-18] MEDS ORDERED: INSULIN (LEVEMIR) 100 UNITS/ML UNITS SQ SCH ×2 (07:00→07:34)
[2020-07-18 07:25] LABS: BLOOD UREA NITROGEN 32.9 mg/dL (7-18); MAGNESIUM 1.8 mg/dL (1.8-2.4)
[2020-07-18 07:28] LABS: BILIRUBIN,TOTAL 0.2 mg/dL (0.2-1); CREATININE 2.8 mg/dL (0.55-1.3); TOT PROT 4.8 g/dl (6.4-8.2)
[2020-07-18 07:31] LABS: ALBUMIN 2.2 g/dl (3.4-5.0)
[2020-07-18] MEDS ORDERED: PT OWN MED DRAWER 7, Y5N ONE ×2 (08:31→09:50)
[2020-07-18] MEDS: PANTOPRAZOLE SODIUM 40 MG VIAL IVPUSH SCH (09:14)
[2020-07-18] MEDS: DOCUSATE SODIUM 100 MG CAPSULE (FP) PO PRN (09:14)
[2020-07-18] MEDS: CARVEDILOL 6.25 MG TABLET (FP) PO SCH ×2 (09:14→21:30)
[2020-07-18] MEDS: HYDROmorphone HCL 2 MG TABLET PO PRN (09:14)
[2020-07-18] MEDS: LEVOTHYROXINE SODIUM 100 MCG VIAL IVPUSH SCH (10:07)
[2020-07-18] MEDS ORDERED: SODIUM CHLORIDE 1,000 ML IV SCH (15:15)
[2020-07-18] MEDS: SUCRALFATE 1 GM/10 ML UNIT DOSE CUPS PO SCH ×2 (17:09→21:30)
[2020-07-18] MEDS: PANTOPRAZOLE 40 MG TABLET PO SCH (21:30)
[2020-07-18] MEDS: ATORVASTATIN CA 20 MG TABLET (FP) PO SCH (21:30)
[2020-07-19] MEDS: SUCRALFATE 1 GM/10 ML UNIT DOSE CUPS PO SCH ×4 (06:19→21:55)
[2020-07-19] MEDS: INSULIN SLIDING SCALE (NOVOLOG) 1 VIAL SQ SCH ×4 (06:20→21:57)
[2020-07-19] MEDS: HEPARIN NA (PORCINE) 5,000 UNITS/ML 1ML VIAL SQ SCH ×3 (06:20→21:56)
[2020-07-19] MEDS: INSULIN (LEVEMIR) 100 UNITS/ML UNITS SQ SCH (06:20)
[2020-07-19 06:26] LABS: BASO % 0.6 % (0-2.0); EOS % 1.2 % (0-4.5); HEMOGLOBIN 7.9 GM/dL (10.7-15.3); LYMPH % 45.3 % (8-40); MCH 29.6 pg (25.7-33.7); MCHC 33.1 g/dl (32.0-36.0); MEAN CELL VOLUME 89.3 fl (80-96); MEAN PLT VOLUME 9.5 fl (7.5-11.1); MONO % 6.9 % (3.8-10.2); PLATELET COUNT 170 K/MM3 (134-434); RBC 2.68 M/mm3 (3.60-5.2); RDW 17.9 % (11.6-15.6); WHITE BLOOD COUNT 4.2 K/mm3 (4.0-10.0)
[2020-07-19 06:57] LABS: ALBUMIN 2.1 g/dl (3.4-5.0); CALCIUM 8.9 mg/dL (8.5-10.1)
[2020-07-19 06:58] LABS: BLOOD UREA NITROGEN 31.5 mg/dL (7-18); MAGNESIUM 1.7 mg/dL (1.8-2.4)
[2020-07-19 07:01] LABS: CREATININE 2.8 mg/dL (0.55-1.3)
[2020-07-19 07:02] LABS: BILIRUBIN,TOTAL 0.2 mg/dL (0.2-1); TOT PROT 4.5 g/dl (6.4-8.2)
[2020-07-19] MEDS: PANTOPRAZOLE 40 MG TABLET PO SCH ×2 (09:16→21:56)
[2020-07-19] MEDS: LEVOTHYROXINE SODIUM 100 MCG VIAL IVPUSH SCH (09:16)
[2020-07-19] MEDS: CARVEDILOL 6.25 MG TABLET (FP) PO SCH ×2 (09:16→21:56)
[2020-07-19] MEDS ORDERED: MULTIVITAMINS (DAILY MVI) TABLET (FP) PO ONE ×2 (14:18→16:00)
[2020-07-19] MEDS ORDERED: MAGNESIUM OXIDE 400 MG TABLET (FP) PO ONE ×2 (14:19→16:00)
[2020-07-19] MEDS: ATORVASTATIN CA 20 MG TABLET (FP) PO SCH (21:56)
[2020-07-20] MEDS: HEPARIN NA (PORCINE) 5,000 UNITS/ML 1ML VIAL SQ SCH (05:50)
[2020-07-20] MEDS: SUCRALFATE 1 GM/10 ML UNIT DOSE CUPS PO SCH ×2 (06:00→11:35)
[2020-07-20] MEDS: INSULIN SLIDING SCALE (NOVOLOG) 1 VIAL SQ SCH ×2 (06:00→11:55)
[2020-07-20] MEDS: INSULIN (LEVEMIR) 100 UNITS/ML UNITS SQ SCH (06:00)
[2020-07-20 07:08] LABS: BASO % 0.8 % (0-2.0); EOS % 0.8 % (0-4.5); HEMATOCRIT 25.7 % (32.4-45.2); HEMOGLOBIN 8.6 GM/dL (10.7-15.3); LYMPH % 40.5 % (8-40); MCH 29.8 pg (25.7-33.7); MCHC 33.3 g/dl (32.0-36.0); MEAN CELL VOLUME 89.4 fl (80-96); MEAN PLT VOLUME 9.9 fl (7.5-11.1); MONO % 8.8 % (3.8-10.2); NEUT % 49.1 % (42.8-82.8); PLATELET COUNT 191 K/MM3 (134-434); RBC 2.88 M/mm3 (3.60-5.2); RDW 17.9 % (11.6-15.6); WHITE BLOOD COUNT 4.3 K/mm3 (4.0-10.0)
[2020-07-20 07:48] LABS: ALBUMIN 2.2 g/dl (3.4-5.0); BLOOD UREA NITROGEN 30.3 mg/dL (7-18); CALCIUM 9.5 mg/dL (8.5-10.1); MAGNESIUM 1.8 mg/dL (1.8-2.4)
[2020-07-20 07:52] LABS: CREATININE 2.9 mg/dL (0.55-1.3)
[2020-07-20 07:53] LABS: BILIRUBIN,TOTAL 0.2 mg/dL (0.2-1)
[2020-07-20] MEDS ORDERED: PT OWN MED DRAWER 7, Y5N ONE (08:47)
[2020-07-20] MEDS: PANTOPRAZOLE 40 MG TABLET PO SCH (09:02)
[2020-07-20] MEDS: CARVEDILOL 6.25 MG TABLET (FP) PO SCH (09:02)
[2020-07-20] MEDS: LEVOTHYROXINE SODIUM 100 MCG VIAL IVPUSH SCH (09:02)
[2020-07-20] MEDS ORDERED: MULTIVITAMINS (DAILY MVI) TABLET (FP) PO SCH (10:00)
[2020-07-20 14:46] VITALS: BP 150/76; PULSE 73; TEMP 97.7
[2020-07-20] MEDS ORDERED: SODIUM BICARBONATE 650 MG TABLET PO SCH (22:00)
[2020-07-21] MEDS ORDERED: PANTOPRAZOLE 40 MG TABLET PO SCH (10:00)
[2020-07-22 18:07] LABS: FREE KAPPA,SERUM 80.3 mg/L (3.3-19.4)
== END 2020-07-20 15:49 | disposition home or self-care (01) | DRG 638 ==
LOC: JER 17:43 → JERBED 18:50 → JICU 23:52 → J4S 07-16 22:10
PROVIDERS: ADMIT Internal Medicine Pulmonary Disease; ATTEND Nurse Practitioner Family
DX: E11.10 Type 2 diabetes mellitus with ketoacidosis without coma (principal); D68.2 Hereditary deficiency of other clotting factors; N17.9 Acute kidney failure, unspecified; N18.4 Chronic kidney disease, stage 4 (severe); E87.2 Acidosis; I13.0 Hypertensive heart and chronic kidney disease with heart failure and stage 1 through stage 4 chronic kidney disease, or unspecified chronic kidney disease; I50.32 Chronic diastolic (congestive) heart failure; R10.84 Generalized abdominal pain; I25.10 Atherosclerotic heart disease of native coronary artery without angina pectoris; E03.9 Hypothyroidism, unspecified; K44.9 Diaphragmatic hernia without obstruction or gangrene; G20 Parkinson's disease; D63.8 Anemia in other chronic diseases classified elsewhere; E11.22 Type 2 diabetes mellitus with diabetic chronic kidney disease; K21.00 Gastro-esophageal reflux disease with esophagitis, without bleeding; E78.5 Hyperlipidemia, unspecified; M10.9 Gout, unspecified; E87.5 Hyperkalemia; F41.9 Anxiety disorder, unspecified; I44.7 Left bundle-branch block, unspecified; R77.8 Other specified abnormalities of plasma proteins; Z95.1 Presence of aortocoronary bypass graft; Z91.19 Patient's noncompliance with other medical treatment and regimen
CPT/HCPCS: 36415; 71045-TC-FY; 71046-TC-FY; 74176-TC; 76705-TC; 80048; 80053; 81003; 82010; 82272; 82550; 82570; 82607; 82728; 82746; 82784; 82803; 82962; 83036; 83540; 83550; 83605; 83690; 83735; 83883; 84100; 84132; 84156; 84300; 84439; 84443; 84478; 84484; 85025; 85045; 87040; 87086; 93005; 93010; 94010; 97116-GP; 97161-GP; 99291; 99292; C9803; J0131; J1644; U0003; U0005

== ENCOUNTER 2020-08-04 10:24 | Inpatient (IN) | payer OTHER ==
[2020-08-04 10:37] VITALS: BMI 25.7
[2020-08-04] MEDS ORDERED: SODIUM CHLORIDE 1,000 ML IV SCH ×3 (11:45→13:15)
[2020-08-04] MEDS ORDERED: ACETAMINOPHEN 1000 MG/100 ML VIAL (NON FORMULARY) IVPB ONE (11:54)
[2020-08-04] MEDS ORDERED: ACETAMINOPHEN INJECTION 100 ML IVPB ONE (12:07)
[2020-08-04 12:17] LABS: VENOUS PCO2 44.3 mmHg (38-52)
[2020-08-04 12:21] LABS: BASO % 0.2 % (0-2.0); HEMATOCRIT 32.2 % (32.4-45.2); HEMOGLOBIN 9.9 GM/dL (10.7-15.3); LYMPH % 13.4 % (8-40); MCH 30.3 pg (25.7-33.7); MCHC 30.7 g/dl (32.0-36.0); MEAN CELL VOLUME 98.8 fl (80-96); MEAN PLT VOLUME 10.5 fl (7.5-11.1); MONO % 7.9 % (3.8-10.2); NEUT % 78.5 % (42.8-82.8); PLATELET COUNT 172 K/MM3 (134-434); RBC 3.26 M/mm3 (3.60-5.2); RDW 19.9 % (11.6-15.6); VENOUS PH 7.185 (7.310-7.410); WHITE BLOOD COUNT 3.5 K/mm3 (4.0-10.0)
[2020-08-04] MEDS ORDERED: morphine SULFATE 4 MG/ML VIAL IVPUSH ONE (12:32)
[2020-08-04] MEDS ORDERED: PANTOPRAZOLE SODIUM 40 MG VIAL IVPUSH ONE (12:38)
[2020-08-04 12:41] LABS: CHLORIDE 105 mmol/L (98-107); SODIUM 139 mmol/L (136-145)
[2020-08-04 12:43] LABS: ALBUMIN 3.1 g/dl (3.4-5.0)
[2020-08-04 12:44] LABS: BLOOD UREA NITROGEN 44.8 mg/dL (7-18); CO2 19 mmol/L (21-32); LIPASE 1108 U/L (73-393)
[2020-08-04 12:46] LABS: CREATININE 3.7 mg/dL (0.55-1.3); SGOT/AST 19 U/L (15-37); SGPT/ALT 14 U/L (13-61)
[2020-08-04] MEDS ORDERED: MORPHINE SULFATE 2 MG/ML VIAL ONE (12:47)
[2020-08-04] MEDS ORDERED: PANTOPRAZOLE SODIUM 40 MG VIAL ONE (12:47)
[2020-08-04 12:48] LABS: BILIRUBIN,TOTAL 0.5 mg/dL (0.2-1); TOT PROT 6.5 g/dl (6.4-8.2)
[2020-08-04 12:49] LABS: ALK PHOS 98 U/L (45-117)
[2020-08-04 12:53] LABS: ANION GAP 16 MMOL/L (8-16); GLUCOSE,RANDOM 706 mg/dL (74-106)
[2020-08-04] MEDS ORDERED: ASPIRIN 81 MG CHEWABLE TABLETS PO ONE (13:09)
[2020-08-04] MEDS ORDERED: ASPIRIN 81 MG CHEWABLE TABLETS ONE (13:17)
[2020-08-04] MEDS ORDERED: INSULIN REGULAR HUMAN 100 UNITS/ML *VIAL IVPUSH ONE ×2 (13:56→15:45)
[2020-08-04 15:14] LABS: VENOUS BASE EXCESS -15.9 mmol/L (-2-2); VENOUS O2 SATURATION 27.9 % (70-80); VENOUS PCO2 41.6 mmHg (38-52)
[2020-08-04 15:16] LABS: VENOUS PH 7.11 (7.310-7.410)
[2020-08-04 15:34] LABS: CHLORIDE 110 mmol/L (98-107); SODIUM 141 mmol/L (136-145)
[2020-08-04 15:35] LABS: CALCIUM 9.2 mg/dL (8.5-10.1)
[2020-08-04 15:36] LABS: BLOOD UREA NITROGEN 44.5 mg/dL (7-18); CO2 15 mmol/L (21-32)
[2020-08-04 15:39] LABS: CREATININE 3.5 mg/dL (0.55-1.3)
[2020-08-04] MEDS ORDERED: INSULIN DRIP - PLEASE ORDER UNDER SETS NR ONE (15:40)
[2020-08-04] MEDS ORDERED: DEXTROSE 50%-WATER - 25 GM/50 ML VIAL IVPUSH PRN (15:43)
[2020-08-04] MEDS ORDERED: INSULIN REGULAR HUMAN 100 UNITS/ML *VIAL* (FOR IVP) IVPUSH ONE (15:43)
[2020-08-04 15:44] LABS: ANION GAP 16 MMOL/L (8-16); GLUCOSE,RANDOM 648 mg/dL (74-106)
[2020-08-04] MEDS ORDERED: ALBUTEROL SO4 2.5/IPRATROPIUM 0.5 INH SOL 3 ML VIAL.NEB. NEB ONE ×2 (15:45→15:53)
[2020-08-04] MEDS ORDERED: CALCIUM GLUCONATE 10% - 1,000 MG/10 ML VIAL IVPUSH ONE (15:45)
[2020-08-04] MEDS ORDERED: SODIUM POLYSTYRENE SULFONATE 15 GM/60 ML BOTTLE PO ONE (15:45)
[2020-08-04] MEDS ORDERED: SODIUM POLYSTYRENE SULFONATE 15 GM/60 ML BOTTLE ONE (15:54)
[2020-08-04] MEDS ORDERED: CALCIUM GLUCONATE 10% - 1,000 MG/10 ML VIAL ONE (15:54)
[2020-08-04] MEDS: INSULIN REGULAR 100 UNITS in SODIUM CHLORIDE 99 ML IVPB SCH ×2 (16:53→19:06)
[2020-08-04] MEDS ORDERED: SODIUM CHLORIDE 0.45% 1,000 ML IV SCH (17:00)
[2020-08-04] MEDS ORDERED: CHLORHEXIDINE GLUCONATE 4% CLEANSER FOR DECOLONIZATION TP SCH (22:00)
[2020-08-04 22:03] LABS: CALCIUM 9.5 mg/dL (8.5-10.1)
[2020-08-04 22:04] LABS: BLOOD UREA NITROGEN 45.4 mg/dL (7-18)
[2020-08-04] MEDS ORDERED: INSULIN (NOVOLOG) ASPART 100 UNITS/ML 10ML VIAL ONE (22:05)
[2020-08-04 22:08] LABS: CREATININE 3.6 mg/dL (0.55-1.3)
[2020-08-04] MEDS: HEPARIN NA (PORCINE) 5,000 UNITS/ML 1ML VIAL SQ SCH (23:00)
[2020-08-04] MEDS: MUPIROCIN 2% TOPICAL OINTMENT FOR DECOLONIZATION NS SCH (23:00)
[2020-08-05] MEDS: INSULIN (LEVEMIR) 100 UNITS/ML UNITS SQ SCH ×3 (00:12→22:02)
[2020-08-05] MEDS: KCL 10 MEQ IVPB 10 MEQ/100 ML INFUS.BAG IVPB SCH ×2 (00:12→02:13)
[2020-08-05 05:53] LABS: BASO % 0.2 % (0-2.0); EOS % 1.2 % (0-4.5); HEMATOCRIT 28.1 % (32.4-45.2); HEMOGLOBIN 9.2 GM/dL (10.7-15.3); LYMPH % 23.2 % (8-40); MCH 30.3 pg (25.7-33.7); MCHC 32.8 g/dl (32.0-36.0); MEAN CELL VOLUME 92.4 fl (80-96); NEUT % 60.4 % (42.8-82.8); PLATELET COUNT 167 K/MM3 (134-434); RBC 3.04 M/mm3 (3.60-5.2); RDW 19.3 % (11.6-15.6); WHITE BLOOD COUNT 4.1 K/mm3 (4.0-10.0)
[2020-08-05 06:13] LABS: CHLORIDE 115 mmol/L (98-107); SODIUM 145 mmol/L (136-145)
[2020-08-05 06:15] LABS: ALBUMIN 2.5 g/dl (3.4-5.0); CALCIUM 9.3 mg/dL (8.5-10.1)
[2020-08-05 06:16] LABS: ANION GAP 4 MMOL/L (8-16); BLOOD UREA NITROGEN 45.3 mg/dL (7-18); CO2 26 mmol/L (21-32); GLUCOSE,RANDOM 130 mg/dL (74-106)
[2020-08-05 06:18] LABS: SGPT/ALT 11 U/L (13-61)
[2020-08-05 06:19] LABS: PHOSPHOROUS 3.3 mg/dL (2.5-4.9); SGOT/AST 9 U/L (15-37)
[2020-08-05 06:20] LABS: BILIRUBIN,TOTAL 0.2 mg/dL (0.2-1); TOT PROT 5.5 g/dl (6.4-8.2)
[2020-08-05 06:21] LABS: ALK PHOS 88 U/L (45-117)
[2020-08-05 06:27] LABS: CREATININE 3.4 mg/dL (0.55-1.3)
[2020-08-05] MEDS: HEPARIN NA (PORCINE) 5,000 UNITS/ML 1ML VIAL SQ SCH ×3 (06:54→23:21)
[2020-08-05] MEDS: MUPIROCIN 2% TOPICAL OINTMENT FOR DECOLONIZATION NS SCH (11:00)
[2020-08-05] MEDS: VANCOMYCIN 250 MG/5 ML ORAL SOLUTION PO SCH ×3 (12:37→23:00)
[2020-08-05 14:49] LABS: CALCIUM 9.8 mg/dL (8.5-10.1)
[2020-08-05 14:50] LABS: BLOOD UREA NITROGEN 42.8 mg/dL (7-18)
[2020-08-05 14:53] LABS: CREATININE 3.3 mg/dL (0.55-1.3)
[2020-08-05] MEDS: INSULIN REGULAR 100 UNITS in SODIUM CHLORIDE 99 ML IVPB SCH (16:32)
[2020-08-05 21:08] LABS: EPI CELLS 17 /uL (0-25.1); HYALINE CASTS 16 /uL (0-3.1); URINE APPEARANCE TURBID; URINE BACTERIA >9,000 /uL (0-1359); URINE BILIRUBIN NEGATIVE (NEGATIVE); URINE COLOR YELLOW; URINE GLUCOSE (UA) NEGATIVE (NEGATIVE); URINE KETONE NEGATIVE (NEGATIVE); URINE LEUK ESTERASE 3+ (NEGATIVE); URINE NITRITE NEGATIVE (NEGATIVE); URINE PROTEIN 3+ (NEGATIVE); URINE UROBILINOGEN 0.2 mg/dL (0.2-1.0); URINE WBC 16434 /uL (0-25.8)
[2020-08-05] MEDS ORDERED: INSULIN (LEVEMIR) 100 UNITS/ML UNITS SQ ONE (21:51)
[2020-08-05] MEDS: ATORVASTATIN CA 40 MG TABLET (FP) PO SCH (22:01)
[2020-08-05 22:29] LABS: URINE RBC 6740 /uL (0-23.9); YEAST NONE SEEN (NEGATIVE)
[2020-08-06] MEDS: INSULIN (LEVEMIR) 100 UNITS/ML UNITS SQ SCH (06:33)
[2020-08-06] MEDS: VANCOMYCIN 250 MG/5 ML ORAL SOLUTION PO SCH ×4 (06:42→23:01)
[2020-08-06] MEDS: HEPARIN NA (PORCINE) 5,000 UNITS/ML 1ML VIAL SQ SCH ×3 (06:46→21:18)
[2020-08-06] MEDS: INSULIN SLIDING SCALE (NOVOLOG) 1 VIAL SQ SCH ×3 (06:49→16:34)
[2020-08-06 07:19] LABS: BASO % 0.3 % (0-2.0); EOS % 0.9 % (0-4.5); HEMATOCRIT 31.9 % (32.4-45.2); HEMOGLOBIN 10.2 GM/dL (10.7-15.3); LYMPH % 30.5 % (8-40); MCH 29.7 pg (25.7-33.7); MCHC 31.9 g/dl (32.0-36.0); MEAN CELL VOLUME 93.3 fl (80-96); MEAN PLT VOLUME 9.9 fl (7.5-11.1); NEUT % 53.3 % (42.8-82.8); PLATELET COUNT 196 K/MM3 (134-434); RBC 3.42 M/mm3 (3.60-5.2); RDW 19.4 % (11.6-15.6); WHITE BLOOD COUNT 4.7 K/mm3 (4.0-10.0)
[2020-08-06 07:46] LABS: ALBUMIN 2.6 g/dl (3.4-5.0); BLOOD UREA NITROGEN 39.2 mg/dL (7-18); CALCIUM 9.6 mg/dL (8.5-10.1)
[2020-08-06 07:49] LABS: CREATININE 3.1 mg/dL (0.55-1.3)
[2020-08-06 07:50] LABS: BILIRUBIN,TOTAL 0.8 mg/dL (0.2-1)
[2020-08-06] MEDS ORDERED: DEXTROSE 5%-WATER - 50 ML IVPB ONE (09:14)
[2020-08-06] MEDS ORDERED: cefTRIAXone SODIUM 1 GM VIAL ONE (09:14)
[2020-08-06] MEDS: CEFTRIAXONE 1 GM in DEXTROSE 5%-WATER - 50 ML IVPB SCH ×2 (09:27→09:54)
[2020-08-06] MEDS: ASPIRIN 81 MG CHEWABLE TABLETS PO SCH (09:27)
[2020-08-06] MEDS: ATORVASTATIN CA 40 MG TABLET (FP) PO SCH (21:18)
[2020-08-06] MEDS ORDERED: INSULIN (NOVOLOG) ASPART 100 UNITS/ML 10ML VIAL SQ ONE ×2 (22:29→22:50)
[2020-08-07] MEDS: HEPARIN NA (PORCINE) 5,000 UNITS/ML 1ML VIAL SQ SCH ×3 (06:16→21:17)
[2020-08-07] MEDS: INSULIN SLIDING SCALE (NOVOLOG) 1 VIAL SQ SCH ×3 (06:17→17:34)
[2020-08-07] MEDS: VANCOMYCIN 250 MG/5 ML ORAL SOLUTION PO SCH ×4 (06:17→23:12)
[2020-08-07] MEDS: INSULIN (LEVEMIR) 100 UNITS/ML UNITS SQ SCH (06:19)
[2020-08-07 06:56] LABS: HEMATOCRIT 28.1 % (32.4-45.2); HEMOGLOBIN 9.1 GM/dL (10.7-15.3); MCH 30.2 pg (25.7-33.7); MCHC 32.3 g/dl (32.0-36.0); MEAN CELL VOLUME 93.3 fl (80-96); MEAN PLT VOLUME 9.6 fl (7.5-11.1); PLATELET COUNT 157 K/MM3 (134-434); RBC 3.01 M/mm3 (3.60-5.2); RDW 18.8 % (11.6-15.6); WHITE BLOOD COUNT 3.9 K/mm3 (4.0-10.0)
[2020-08-07 07:30] LABS: ALBUMIN 2.4 g/dl (3.4-5.0); BLOOD UREA NITROGEN 41.5 mg/dL (7-18); CALCIUM 9.4 mg/dL (8.5-10.1); MAGNESIUM 1.8 mg/dL (1.8-2.4)
[2020-08-07 07:33] LABS: PHOSPHOROUS 2.8 mg/dL (2.5-4.9)
[2020-08-07 07:34] LABS: BILIRUBIN,TOTAL 0.4 mg/dL (0.2-1); TOT PROT 5.4 g/dl (6.4-8.2)
[2020-08-07] MEDS: hydrALAZINE HCL 50 MG TABLET (FP) PO SCH ×2 (09:04→21:17)
[2020-08-07] MEDS: ASPIRIN 81 MG CHEWABLE TABLETS PO SCH (09:04)
[2020-08-07] MEDS ORDERED: cefTRIAXone SODIUM 1 GM VIAL ONE (09:08)
[2020-08-07] MEDS ORDERED: DEXTROSE 5%-WATER - 50 ML IVPB ONE (09:08)
[2020-08-07] MEDS: CEFTRIAXONE 1 GM in DEXTROSE 5%-WATER - 50 ML IVPB SCH (09:13)
[2020-08-07] MEDS ORDERED: amLODIPine BESYLATE 5 MG TABLET (FP) PO ONE (10:04)
[2020-08-07] MEDS ORDERED: REGADENOSON 0.4 MG/5 ML PRE-FILLED SYRINGE IVPUSH ONE ×2 (10:07→10:30)
[2020-08-07] MEDS ORDERED: LOSARTAN POTASSIUM 25 MG TABLET PO ONE (10:09)
[2020-08-07] MEDS: CARVEDILOL 6.25 MG TABLET (FP) PO SCH ×2 (10:16→21:17)
[2020-08-07] MEDS ORDERED: PT OWN MED DRAWER 7, Y5N ONE (10:17)
[2020-08-07] MEDS: LEVOTHYROXINE NA 150 MCG TABLET PO SCH (10:18)
[2020-08-07] MEDS: ATORVASTATIN CA 20 MG TABLET (FP) PO SCH (21:17)
[2020-08-07] MEDS ORDERED: INSULIN (NOVOLOG) ASPART 100 UNITS/ML 10ML VIAL SQ ONE (22:04)
[2020-08-08] MEDS: VANCOMYCIN 250 MG/5 ML ORAL SOLUTION PO SCH ×4 (06:01→23:01)
[2020-08-08] MEDS ORDERED: PT OWN MED DRAWER 7, Y5N ONE ×2 (06:43→21:17)
[2020-08-08 06:44] LABS: HEMATOCRIT 28.7 % (32.4-45.2); HEMOGLOBIN 9.1 GM/dL (10.7-15.3); MCH 29.7 pg (25.7-33.7); MCHC 31.8 g/dl (32.0-36.0); MEAN CELL VOLUME 93.3 fl (80-96); MEAN PLT VOLUME 9.9 fl (7.5-11.1); PLATELET COUNT 149 K/MM3 (134-434); RBC 3.07 M/mm3 (3.60-5.2); WHITE BLOOD COUNT 3.5 K/mm3 (4.0-10.0)
[2020-08-08] MEDS: HEPARIN NA (PORCINE) 5,000 UNITS/ML 1ML VIAL SQ SCH ×3 (06:46→21:23)
[2020-08-08] MEDS: INSULIN (LEVEMIR) 100 UNITS/ML UNITS SQ SCH ×2 (06:46→21:24)
[2020-08-08] MEDS: INSULIN SLIDING SCALE (NOVOLOG) 1 VIAL SQ SCH ×3 (06:47→16:54)
[2020-08-08] MEDS: LEVOTHYROXINE NA 150 MCG TABLET PO SCH (06:47)
[2020-08-08 07:01] LABS: CALCIUM 9.2 mg/dL (8.5-10.1)
[2020-08-08 07:03] LABS: ALBUMIN 2.2 g/dl (3.4-5.0); BLOOD UREA NITROGEN 36.4 mg/dL (7-18); MAGNESIUM 1.8 mg/dL (1.8-2.4)
[2020-08-08 07:06] LABS: CREATININE 2.7 mg/dL (0.55-1.3); PHOSPHOROUS 2.5 mg/dL (2.5-4.9)
[2020-08-08 07:07] LABS: BILIRUBIN,TOTAL 0.4 mg/dL (0.2-1); TOT PROT 5.2 g/dl (6.4-8.2)
[2020-08-08] MEDS ORDERED: DEXTROSE 5%-WATER - 50 ML IVPB ONE (08:57)
[2020-08-08] MEDS ORDERED: cefTRIAXone SODIUM 1 GM VIAL ONE (08:57)
[2020-08-08] MEDS: CEFTRIAXONE 1 GM in DEXTROSE 5%-WATER - 50 ML IVPB SCH (09:12)
[2020-08-08] MEDS: ASPIRIN 81 MG CHEWABLE TABLETS PO SCH (09:13)
[2020-08-08] MEDS: CARVEDILOL 6.25 MG TABLET (FP) PO SCH ×2 (09:13→21:23)
[2020-08-08] MEDS: hydrALAZINE HCL 50 MG TABLET (FP) PO SCH ×2 (09:13→21:23)
[2020-08-08] MEDS: ATORVASTATIN CA 20 MG TABLET (FP) PO SCH (21:23)
[2020-08-09 06:27] LABS: BASO % 0.4 % (0-2.0); EOS % 1.5 % (0-4.5); HEMATOCRIT 28.3 % (32.4-45.2); HEMOGLOBIN 9.3 GM/dL (10.7-15.3); LYMPH % 30.7 % (8-40); MCH 30.1 pg (25.7-33.7); MEAN CELL VOLUME 91.3 fl (80-96); MEAN PLT VOLUME 9.8 fl (7.5-11.1); MONO % 12.4 % (3.8-10.2); PLATELET COUNT 188 K/MM3 (134-434); RDW 18.4 % (11.6-15.6); WHITE BLOOD COUNT 4.2 K/mm3 (4.0-10.0)
[2020-08-09] MEDS ORDERED: PT OWN MED DRAWER 7, Y5N ONE (06:39)
[2020-08-09 06:43] LABS: ALBUMIN 2.1 g/dl (3.4-5.0); CALCIUM 9.1 mg/dL (8.5-10.1)
[2020-08-09 06:45] LABS: BLOOD UREA NITROGEN 38.3 mg/dL (7-18); MAGNESIUM 1.8 mg/dL (1.8-2.4)
[2020-08-09] MEDS: LEVOTHYROXINE NA 150 MCG TABLET PO SCH (06:47)
[2020-08-09 06:48] LABS: BILIRUBIN,TOTAL 0.2 mg/dL (0.2-1); CREATININE 2.7 mg/dL (0.55-1.3); TOT PROT 5.2 g/dl (6.4-8.2)
[2020-08-09] MEDS: HEPARIN NA (PORCINE) 5,000 UNITS/ML 1ML VIAL SQ SCH ×3 (06:48→21:29)
[2020-08-09] MEDS: INSULIN SLIDING SCALE (NOVOLOG) 1 VIAL SQ SCH ×3 (06:48→17:10)
[2020-08-09] MEDS: VANCOMYCIN 250 MG/5 ML ORAL SOLUTION PO SCH (06:48)
[2020-08-09] MEDS: INSULIN (LEVEMIR) 100 UNITS/ML UNITS SQ SCH ×2 (06:48→21:29)
[2020-08-09] MEDS ORDERED: INSULIN (LEVEMIR) 100 UNITS/ML UNITS SQ SCH (08:10)
[2020-08-09] MEDS ORDERED: cefTRIAXone SODIUM 1 GM VIAL ONE (09:45)
[2020-08-09] MEDS ORDERED: DEXTROSE 5%-WATER - 50 ML IVPB ONE (09:45)
[2020-08-09] MEDS: CEFTRIAXONE 1 GM in DEXTROSE 5%-WATER - 50 ML IVPB SCH (09:54)
[2020-08-09] MEDS: CARVEDILOL 6.25 MG TABLET (FP) PO SCH ×2 (09:55→21:29)
[2020-08-09] MEDS: ASPIRIN 81 MG CHEWABLE TABLETS PO SCH (09:55)
[2020-08-09] MEDS: hydrALAZINE HCL 50 MG TABLET (FP) PO SCH ×2 (09:55→21:29)
[2020-08-09] MEDS ORDERED: DEXTROSE 50%-WATER - 25 GM/50 ML VIAL IVPUSH PRN ×2 (19:36→21:25)
[2020-08-09] MEDS: ATORVASTATIN CA 20 MG TABLET (FP) PO SCH (21:29)
[2020-08-10] MEDS ORDERED: PT OWN MED DRAWER 7, Y5N ONE (05:34)
[2020-08-10] MEDS: HEPARIN NA (PORCINE) 5,000 UNITS/ML 1ML VIAL SQ SCH ×2 (05:57→14:02)
[2020-08-10] MEDS: INSULIN SLIDING SCALE (NOVOLOG) 1 VIAL SQ SCH ×3 (06:00→17:36)
[2020-08-10] MEDS: LEVOTHYROXINE NA 150 MCG TABLET PO SCH (06:00)
[2020-08-10 06:43] LABS: HEMATOCRIT 30.9 % (32.4-45.2); HEMOGLOBIN 10.1 GM/dL (10.7-15.3); MCH 30.3 pg (25.7-33.7); MCHC 32.7 g/dl (32.0-36.0); MEAN CELL VOLUME 92.8 fl (80-96); MEAN PLT VOLUME 9.2 fl (7.5-11.1); PLATELET COUNT 185 K/MM3 (134-434); RBC 3.33 M/mm3 (3.60-5.2); RDW 18.9 % (11.6-15.6); WHITE BLOOD COUNT 3.6 K/mm3 (4.0-10.0)
[2020-08-10 07:15] LABS: CALCIUM 9.5 mg/dL (8.5-10.1)
[2020-08-10 07:17] LABS: ALBUMIN 2.2 g/dl (3.4-5.0); BLOOD UREA NITROGEN 32.2 mg/dL (7-18); MAGNESIUM 1.9 mg/dL (1.8-2.4)
[2020-08-10 07:20] LABS: BILIRUBIN,TOTAL 0.5 mg/dL (0.2-1); CREATININE 2.6 mg/dL (0.55-1.3); PHOSPHOROUS 2.7 mg/dL (2.5-4.9); TOT PROT 5.3 g/dl (6.4-8.2)
[2020-08-10] MEDS ORDERED: hydrALAZINE HCL 50 MG TABLET (FP) PO SCH (07:56)
[2020-08-10] MEDS ORDERED: DEXTROSE 5%-WATER - 50 ML IVPB ONE (09:20)
[2020-08-10] MEDS ORDERED: cefTRIAXone SODIUM 1 GM VIAL ONE (09:20)
[2020-08-10] MEDS: CEFTRIAXONE 1 GM in DEXTROSE 5%-WATER - 50 ML IVPB SCH (09:42)
[2020-08-10] MEDS: CARVEDILOL 6.25 MG TABLET (FP) PO SCH (09:43)
[2020-08-10] MEDS: ASPIRIN 81 MG CHEWABLE TABLETS PO SCH (09:43)
[2020-08-10] MEDS ORDERED: CHOLECALCIFEROL (VIT D3) 400 UNIT (10 MCG) TABLET PO SCH (10:00)
[2020-08-10] MEDS ORDERED: REGADENOSON 0.4 MG/5 ML PRE-FILLED SYRINGE IVPUSH ONE (10:15)
[2020-08-10 14:11] VITALS: PULSE 83
[2020-08-10] MEDS ORDERED: PANTOPRAZOLE SODIUM 40 MG VIAL IVPUSH ONE (14:46)
[2020-08-10] MEDS ORDERED: FAMOTIDINE 20 MG/50 ML IVPB 20 MG/50 ML MG IVPB ONE (14:47)
[2020-08-10] MEDS ORDERED: TRIMETHOBENZAMIDE HCL 300 MG CAPSULE PO ONE ×2 (15:10→16:30)
[2020-08-10 18:30] VITALS: BP 155/67; TEMP 97.7
== END 2020-08-10 18:31 | disposition home or self-care (01) | DRG 638 ==
LOC: JER 10:24 → JICU 16:09 → J4S 08-05 16:36
PROVIDERS: ADMIT Internal Medicine Pulmonary Disease; ATTEND Internal Medicine
DX: E11.10 Type 2 diabetes mellitus with ketoacidosis without coma (principal); I24.8 Other forms of acute ischemic heart disease; D68.2 Hereditary deficiency of other clotting factors; N18.4 Chronic kidney disease, stage 4 (severe); A04.72 Enterocolitis due to Clostridium difficile, not specified as recurrent; N39.0 Urinary tract infection, site not specified; I10 Essential (primary) hypertension; G20 Parkinson's disease; I25.10 Atherosclerotic heart disease of native coronary artery without angina pectoris; Z95.1 Presence of aortocoronary bypass graft; E78.5 Hyperlipidemia, unspecified; E03.9 Hypothyroidism, unspecified; Z91.14 Patient's other noncompliance with medication regimen; I16.0 Hypertensive urgency; K21.9 Gastro-esophageal reflux disease without esophagitis; E11.21 Type 2 diabetes mellitus with diabetic nephropathy; Z79.4 Long term (current) use of insulin
CPT/HCPCS: 36415; 71046-TC-FY; 78452-TC; 80048; 80053; 80061; 81003; 82010; 82550; 82803; 82962; 83036; 83690; 83721; 83735; 84100; 84132; 84484; 85025; 85027; 87086; 87186; 87324; 87449; 93005; 93010; 93017; 99291; A9502; C9803; J0131; J1644; J2785; U0003; U0005

== ENCOUNTER 2020-08-11 04:11 | Inpatient (IN) | payer OTHER ==
[2020-08-11 05:12] LABS: BASO % 0.8 % (0-2.0); EOS % 0.2 % (0-4.5); HEMATOCRIT 35.4 % (32.4-45.2); HEMOGLOBIN 11.5 GM/dL (10.7-15.3); LYMPH % 24.4 % (8-40); MCH 30.2 pg (25.7-33.7); MCHC 32.5 g/dl (32.0-36.0); MEAN CELL VOLUME 92.8 fl (80-96); MEAN PLT VOLUME 9.2 fl (7.5-11.1); MONO % 12.7 % (3.8-10.2); NEUT % 61.9 % (42.8-82.8); PLATELET COUNT 252 K/MM3 (134-434); RBC 3.82 M/mm3 (3.60-5.2); RDW 18.4 % (11.6-15.6); WHITE BLOOD COUNT 5.1 K/mm3 (4.0-10.0)
[2020-08-11 05:18] LABS: INR 1.46 (0.83-1.09); PROTHROMBIN TIME (PATIENT) 17.8 SEC (9.7-13.0)
[2020-08-11 05:21] LABS: ACTIVATED PTT 31.5 SECONDS (25.2-36.5)
[2020-08-11 05:34] LABS: BLOOD UREA NITROGEN 35.1 mg/dL (7-18); CALCIUM 10.3 mg/dL (8.5-10.1)
[2020-08-11 05:35] LABS: MAGNESIUM 2.2 mg/dL (1.8-2.4)
[2020-08-11 05:39] LABS: BILIRUBIN,TOTAL 0.4 mg/dL (0.2-1); TOT PROT 6.9 g/dl (6.4-8.2)
[2020-08-11 05:44] LABS: ALBUMIN 3.1 g/dl (3.4-5.0)
[2020-08-11] MEDS ORDERED: ENOXAPARIN NA (PORCINE) 40 MG/0.4 ML DISP.SYRIN SQ SCH (10:00)
[2020-08-11] MEDS: INSULIN (LEVEMIR) 100 UNITS/ML UNITS SQ SCH ×2 (10:00→21:37)
[2020-08-11] MEDS ORDERED: CHOLECALCIFEROL (VIT D3) 1,000 UNIT (25 MCG) TABLET ONE (10:25)
[2020-08-11] MEDS ORDERED: CARVEDILOL 3.125 MG TABLET (FP) ONE (10:25)
[2020-08-11] MEDS ORDERED: LEVOTHYROXINE NA 25 MCG TABLET (FP) ONE (10:26)
[2020-08-11] MEDS ORDERED: ENOXAPARIN NA (PORCINE) 40 MG/0.4 ML DISP.SYRIN SQ ONE (10:26)
[2020-08-11 10:39] LABS: HEMATOCRIT 31.9 % (32.4-45.2); HEMOGLOBIN 10.4 GM/dL (10.7-15.3); MCH 30.3 pg (25.7-33.7); MCHC 32.7 g/dl (32.0-36.0); MEAN CELL VOLUME 92.6 fl (80-96); MEAN PLT VOLUME 9.3 fl (7.5-11.1); PLATELET COUNT 266 K/MM3 (134-434); RBC 3.45 M/mm3 (3.60-5.2); RDW 18.5 % (11.6-15.6); WHITE BLOOD COUNT 6.6 K/mm3 (4.0-10.0)
[2020-08-11] MEDS ORDERED: TRIMETHOBENZAMIDE HCL 200MG/2ML INJ IM ONE (10:45)
[2020-08-11] MEDS ORDERED: ENOXAPARIN NA (PORCINE) 30 MG/0.3 ML DISP.SYRIN SQ SCH (10:45)
[2020-08-11 10:59] LABS: ALBUMIN 2.8 g/dl (3.4-5.0); CALCIUM 10.1 mg/dL (8.5-10.1)
[2020-08-11 11:00] LABS: BLOOD UREA NITROGEN 35.2 mg/dL (7-18)
[2020-08-11 11:04] LABS: BILIRUBIN,TOTAL 0.3 mg/dL (0.2-1); TOT PROT 6.3 g/dl (6.4-8.2)
[2020-08-11 11:08] LABS: N-TERMINAL BNP 30052.6 pg/ml (5-125)
[2020-08-11] MEDS ORDERED: LIDOCAINE VISCOUS 2% ORAL/TOP 100 ML BOTTLE MM ONE (12:28)
[2020-08-11] MEDS ORDERED: ACETAMINOPHEN 1000 MG/100 ML VIAL (NON FORMULARY) IVPB ONE (12:28)
[2020-08-11] MEDS ORDERED: FAMOTIDINE 20 MG TABLET PO ONE (12:28)
[2020-08-11] MEDS ORDERED: ACETAMINOPHEN INJECTION 100 ML IVPB ONE (12:36)
[2020-08-11] MEDS: CHOLECALCIFEROL (VIT D3) 400 UNIT (10 MCG) TABLET PO SCH (12:47)
[2020-08-11] MEDS: CARVEDILOL 6.25 MG TABLET (FP) PO SCH ×2 (12:47→21:35)
[2020-08-11] MEDS: hydrALAZINE HCL 50 MG TABLET (FP) PO SCH ×2 (12:48→21:35)
[2020-08-11] MEDS: CEPHALEXIN MONOHYDRATE 500 MG CAPSULE (UD) PO SCH ×2 (12:48→21:35)
[2020-08-11] MEDS: LEVOTHYROXINE NA 150 MCG TABLET PO SCH (12:48)
[2020-08-11] MEDS ORDERED: MORPHINE SULFATE 2 MG/ML VIAL IVPUSH ONE (12:59)
[2020-08-11] MEDS ORDERED: MORPHINE SULFATE 2 MG/ML VIAL ONE (13:14)
[2020-08-11] MEDS ORDERED: INSULIN SLIDING SCALE (NOVOLOG) 1 VIAL SQ ONE (13:16)
[2020-08-11] MEDS ORDERED: SIMETHICONE 80 MG TAB.CHEW (FP) PO ONE (13:19)
[2020-08-11] MEDS: INSULIN SLIDING SCALE (NOVOLOG) 1 VIAL SQ SCH ×3 (13:24→21:36)
[2020-08-11] MEDS ORDERED: TRIMETHOBENZAMIDE HCL 200MG/2ML INJ IM PRN (14:00)
[2020-08-11] MEDS ORDERED: ACETAMINOPHEN 325 MG TABLET (FP) PO PRN (15:31)
[2020-08-11] MEDS ORDERED: MAG HYDROX/AL HYDROX/SIMETH 30 ML UNIT-DOSE CUP PO ONE (15:37)
[2020-08-11] MEDS: HEPARIN NA (PORCINE) 5,000 UNITS/ML 1ML VIAL SQ SCH ×2 (16:12→21:36)
[2020-08-11] MEDS ORDERED: SIMETHICONE 80 MG TAB.CHEW (FP) PO PRN (18:00)
[2020-08-11 18:53] VITALS: BMI 29.9
[2020-08-11] MEDS: ATORVASTATIN CA 20 MG TABLET (FP) PO SCH (21:34)
[2020-08-11] MEDS: SODIUM BICARBONATE 650 MG TABLET PO SCH (21:34)
[2020-08-12] MEDS: INSULIN (LEVEMIR) 100 UNITS/ML UNITS SQ SCH ×2 (06:08→21:32)
[2020-08-12] MEDS: HEPARIN NA (PORCINE) 5,000 UNITS/ML 1ML VIAL SQ SCH ×3 (06:08→21:32)
[2020-08-12] MEDS: INSULIN SLIDING SCALE (NOVOLOG) 1 VIAL SQ SCH ×4 (06:08→21:32)
[2020-08-12] MEDS: LEVOTHYROXINE NA 150 MCG TABLET PO SCH (06:09)
[2020-08-12] MEDS: hydrALAZINE HCL 50 MG TABLET (FP) PO SCH ×2 (09:04→21:32)
[2020-08-12] MEDS: CARVEDILOL 6.25 MG TABLET (FP) PO SCH ×2 (09:04→21:32)
[2020-08-12] MEDS: SODIUM BICARBONATE 650 MG TABLET PO SCH ×2 (09:04→21:32)
[2020-08-12] MEDS: CHOLECALCIFEROL (VIT D3) 400 UNIT (10 MCG) TABLET PO SCH (09:05)
[2020-08-12] MEDS: CEPHALEXIN MONOHYDRATE 500 MG CAPSULE (UD) PO SCH ×2 (09:05→21:31)
[2020-08-12] MEDS: PANTOPRAZOLE 40 MG TABLET PO SCH (09:05)
[2020-08-12] MEDS ORDERED: INSULIN (NOVOLOG) ASPART 100 UNITS/ML 10ML VIAL ONE ×3 (11:28→17:03)
[2020-08-12] MEDS ORDERED: FUROSEMIDE 40 MG/4 ML INJECTABLE VIAL IVPUSH ONE (13:14)
[2020-08-12] MEDS ORDERED: CEFTRIAXONE 1 GM in DEXTROSE 5%-WATER - 50 ML IVPB SCH (13:45)
[2020-08-12] MEDS: ATORVASTATIN CA 20 MG TABLET (FP) PO SCH (21:31)
[2020-08-13] MEDS: INSULIN SLIDING SCALE (NOVOLOG) 1 VIAL SQ SCH ×3 (06:11→17:15)
[2020-08-13] MEDS: HEPARIN NA (PORCINE) 5,000 UNITS/ML 1ML VIAL SQ SCH ×2 (06:11→14:06)
[2020-08-13] MEDS: INSULIN (LEVEMIR) 100 UNITS/ML UNITS SQ SCH (06:11)
[2020-08-13] MEDS: LEVOTHYROXINE NA 150 MCG TABLET PO SCH (06:12)
[2020-08-13 08:38] LABS: HEMATOCRIT 26.5 % (32.4-45.2); HEMOGLOBIN 8.7 GM/dL (10.7-15.3); MCHC 32.8 g/dl (32.0-36.0); MEAN CELL VOLUME 91.4 fl (80-96); MEAN PLT VOLUME 8.9 fl (7.5-11.1); PLATELET COUNT 223 K/MM3 (134-434); WHITE BLOOD COUNT 3.8 K/mm3 (4.0-10.0)
[2020-08-13 08:59] LABS: BLOOD UREA NITROGEN 32.5 mg/dL (7-18); CALCIUM 9.7 mg/dL (8.5-10.1)
[2020-08-13 09:00] LABS: ALBUMIN 2.4 g/dl (3.4-5.0)
[2020-08-13 09:02] LABS: CREATININE 3.2 mg/dL (0.55-1.3)
[2020-08-13 09:03] LABS: PHOSPHOROUS 2.7 mg/dL (2.5-4.9)
[2020-08-13 09:04] LABS: BILIRUBIN,TOTAL 0.2 mg/dL (0.2-1); TOT PROT 5.2 g/dl (6.4-8.2)
[2020-08-13] MEDS: CEPHALEXIN MONOHYDRATE 500 MG CAPSULE (UD) PO SCH ×2 (10:20→23:33)
[2020-08-13] MEDS: CHOLECALCIFEROL (VIT D3) 400 UNIT (10 MCG) TABLET PO SCH (10:20)
[2020-08-13] MEDS: CARVEDILOL 6.25 MG TABLET (FP) PO SCH ×2 (10:20→23:33)
[2020-08-13] MEDS: SODIUM BICARBONATE 650 MG TABLET PO SCH ×2 (10:20→23:33)
[2020-08-13] MEDS: PANTOPRAZOLE 40 MG TABLET PO SCH (10:20)
[2020-08-13] MEDS: hydrALAZINE HCL 50 MG TABLET (FP) PO SCH ×2 (10:20→23:33)
[2020-08-13] MEDS ORDERED: FUROSEMIDE 40 MG/4 ML INJECTABLE VIAL IVPUSH ONE (11:00)
[2020-08-13] MEDS ORDERED: INSULIN (NOVOLOG) ASPART 100 UNITS/ML 10ML VIAL ONE ×2 (11:45→16:24)
[2020-08-13] MEDS ORDERED: ASPIRIN 325 MG TABLET PO ONE (16:00)
[2020-08-13] MEDS ORDERED: HEPARIN NA (PORCINE) 5,000 UNITS/ML 1ML VIAL IVPUSH PRN ×2 (16:22)
[2020-08-13] MEDS ORDERED: CLOPIDOGREL BISULFATE 300 MG TABLET PO ONE (16:22)
[2020-08-13] MEDS ORDERED: HEPARIN NA (PORCINE) 5,000 UNITS/ML 1ML VIAL IVPUSH ONE (16:28)
[2020-08-13] MEDS ORDERED: HEPARIN - 25,000 UNIT in SODIUM CHLORIDE 495 ML IV SCH (16:30)
[2020-08-13] MEDS: HEPARIN SOD,PORK IN 0.45% NACL 25,000 UNITS/500 ML INFUS.BAG IVPB SCH (17:45)
[2020-08-13] MEDS: ISOSORBIDE MONONITRATE 30 MG TAB.SR.24H (FP) PO SCH (18:05)
[2020-08-13] MEDS: ATORVASTATIN CA 20 MG TABLET (FP) PO SCH (23:33)
[2020-08-14] MEDS: HEPARIN SOD,PORK IN 0.45% NACL 25,000 UNITS/500 ML INFUS.BAG IVPB SCH ×2 (03:02→13:30)
[2020-08-14] MEDS ORDERED: CARVEDILOL 6.25 MG TABLET (FP) PO ONE (06:17)
[2020-08-14] MEDS ORDERED: INSULIN (NOVOLOG) ASPART 100 UNITS/ML 10ML VIAL ONE (06:21)
[2020-08-14] MEDS: LEVOTHYROXINE NA 150 MCG TABLET PO SCH ×2 (08:25→08:33)
[2020-08-14] MEDS: INSULIN (LEVEMIR) 100 UNITS/ML UNITS SQ SCH (08:25)
[2020-08-14] MEDS: INSULIN SLIDING SCALE (NOVOLOG) 1 VIAL SQ SCH ×3 (08:25→17:32)
[2020-08-14 08:44] LABS: BASO % 0.5 % (0-2.0); EOS % 0.6 % (0-4.5); HEMATOCRIT 27.7 % (32.4-45.2); HEMOGLOBIN 8.9 GM/dL (10.7-15.3); LYMPH % 24.3 % (8-40); MCHC 32.3 g/dl (32.0-36.0); MEAN CELL VOLUME 92.9 fl (80-96); MONO % 9.6 % (3.8-10.2); PLATELET COUNT 248 K/MM3 (134-434); RBC 2.98 M/mm3 (3.60-5.2); RDW 17.9 % (11.6-15.6); WHITE BLOOD COUNT 4.8 K/mm3 (4.0-10.0)
[2020-08-14 09:02] LABS: CHLORIDE 107 mmol/L (98-107); SODIUM 139 mmol/L (136-145)
[2020-08-14 09:06] LABS: ANION GAP 9 MMOL/L (8-16); BLOOD UREA NITROGEN 36.3 mg/dL (7-18); CALCIUM 9.3 mg/dL (8.5-10.1); CO2 23 mmol/L (21-32)
[2020-08-14 09:07] LABS: GLUCOSE,RANDOM 286 mg/dL (74-106)
[2020-08-14 09:10] LABS: CREATININE 3.4 mg/dL (0.55-1.3)
[2020-08-14] MEDS ORDERED: FUROSEMIDE 40 MG/4 ML INJECTABLE VIAL IVPUSH SCH (10:00)
[2020-08-14] MEDS: CHOLECALCIFEROL (VIT D3) 400 UNIT (10 MCG) TABLET PO SCH (10:26)
[2020-08-14] MEDS: ISOSORBIDE MONONITRATE 30 MG TAB.SR.24H (FP) PO SCH (10:26)
[2020-08-14] MEDS: SODIUM BICARBONATE 650 MG TABLET PO SCH ×2 (10:26→21:21)
[2020-08-14] MEDS: CEPHALEXIN MONOHYDRATE 500 MG CAPSULE (UD) PO SCH ×2 (10:26→21:21)
[2020-08-14] MEDS: hydrALAZINE HCL 50 MG TABLET (FP) PO SCH ×2 (10:26→21:21)
[2020-08-14] MEDS: PANTOPRAZOLE 40 MG TABLET PO SCH (10:26)
[2020-08-14] MEDS: CARVEDILOL 6.25 MG TABLET (FP) PO SCH ×2 (10:27→21:21)
[2020-08-14] MEDS: CLOPIDOGREL BISULFATE 75 MG TABLET (FP) PO SCH (15:52)
[2020-08-14] MEDS: ASPIRIN COATED 81 MG TABLET.EC PO SCH (15:52)
[2020-08-14] MEDS: ATORVASTATIN CA 20 MG TABLET (FP) PO SCH (21:21)
[2020-08-15] MEDS: INSULIN SLIDING SCALE (NOVOLOG) 1 VIAL SQ SCH (06:05)
[2020-08-15] MEDS: INSULIN (LEVEMIR) 100 UNITS/ML UNITS SQ SCH (06:05)
[2020-08-15] MEDS: LEVOTHYROXINE NA 150 MCG TABLET PO SCH (06:07)
[2020-08-15 06:58] LABS: HEMATOCRIT 27.2 % (32.4-45.2); HEMOGLOBIN 8.5 GM/dL (10.7-15.3); MCH 29.5 pg (25.7-33.7); MCHC 31.4 g/dl (32.0-36.0); MEAN CELL VOLUME 94.2 fl (80-96); MEAN PLT VOLUME 9.4 fl (7.5-11.1); PLATELET COUNT 240 K/MM3 (134-434); RBC 2.88 M/mm3 (3.60-5.2); RDW 17.6 % (11.6-15.6); WHITE BLOOD COUNT 4.2 K/mm3 (4.0-10.0)
[2020-08-15 07:24] LABS: ACTIVATED PTT 124.3 SECONDS (25.2-36.5)
[2020-08-15] MEDS: HEPARIN SOD,PORK IN 0.45% NACL 25,000 UNITS/500 ML INFUS.BAG IVPB SCH (08:28)
[2020-08-15 08:49] LABS: INR 1.61 (0.83-1.09); PROTHROMBIN TIME (PATIENT) 19.2 SEC (9.7-13.0)
[2020-08-15] MEDS ORDERED: FUROSEMIDE 40 MG TABLET (FP) PO SCH (10:00)
[2020-08-15] MEDS: PANTOPRAZOLE 40 MG TABLET PO SCH (10:13)
[2020-08-15] MEDS: CHOLECALCIFEROL (VIT D3) 400 UNIT (10 MCG) TABLET PO SCH (10:13)
[2020-08-15] MEDS: ASPIRIN COATED 81 MG TABLET.EC PO SCH (10:13)
[2020-08-15] MEDS: CLOPIDOGREL BISULFATE 75 MG TABLET (FP) PO SCH (10:13)
[2020-08-15] MEDS: hydrALAZINE HCL 50 MG TABLET (FP) PO SCH (10:13)
[2020-08-15] MEDS: SODIUM BICARBONATE 650 MG TABLET PO SCH (10:13)
[2020-08-15] MEDS: CEPHALEXIN MONOHYDRATE 500 MG CAPSULE (UD) PO SCH (10:13)
[2020-08-15] MEDS: ISOSORBIDE MONONITRATE 30 MG TAB.SR.24H (FP) PO SCH (10:14)
[2020-08-15] MEDS: CARVEDILOL 6.25 MG TABLET (FP) PO SCH (10:14)
[2020-08-15] MEDS ORDERED: ACETAMINOPHEN 325 MG TABLET (FP) PO PRN (11:03)
[2020-08-15] MEDS ORDERED: TRIMETHOBENZAMIDE HCL 200MG/2ML INJ IM PRN (11:03)
[2020-08-15] MEDS ORDERED: SIMETHICONE 80 MG TAB.CHEW (FP) PO PRN (11:03)
[2020-08-15] MEDS ORDERED: INSULIN (NOVOLOG) ASPART 100 UNITS/ML 10ML VIAL ONE (11:20)
[2020-08-15 11:42] VITALS: BP 142/70; PULSE 84; TEMP 98
[2020-08-15] MEDS ORDERED: INSULIN SLIDING SCALE (NOVOLOG) 1 VIAL SQ SCH (16:30)
[2020-08-15] MEDS ORDERED: hydrALAZINE HCL 50 MG TABLET (FP) PO SCH (22:00)
[2020-08-15] MEDS ORDERED: SODIUM BICARBONATE 650 MG TABLET PO SCH (22:00)
[2020-08-15] MEDS ORDERED: ATORVASTATIN CA 20 MG TABLET (FP) PO SCH (22:00)
[2020-08-15] MEDS ORDERED: CARVEDILOL 6.25 MG TABLET (FP) PO SCH (22:00)
[2020-08-15] MEDS ORDERED: CEPHALEXIN MONOHYDRATE 500 MG CAPSULE (UD) PO SCH (22:00)
[2020-08-16] MEDS ORDERED: INSULIN (LEVEMIR) 100 UNITS/ML UNITS SQ SCH (07:00)
[2020-08-16] MEDS ORDERED: LEVOTHYROXINE NA 150 MCG TABLET PO SCH (07:00)
[2020-08-16] MEDS ORDERED: PANTOPRAZOLE 40 MG TABLET PO SCH (10:00)
[2020-08-16] MEDS ORDERED: CHOLECALCIFEROL (VIT D3) 400 UNIT (10 MCG) TABLET PO SCH (10:00)
== END 2020-08-15 11:56 | disposition short-term general hospital (02) | DRG 280 ==
LOC: JER 04:11 → JERBED 06:19 → INTOOBSV 06:19 → UNDOADMOB 06:19 → JERBED 08:13 → J6S 14:55 → OBSVTOIN 08-13 13:30 → J4W 08-13 21:24
PROVIDERS: ATTEND Internal Medicine
DX: I13.2 Hypertensive heart and chronic kidney disease with heart failure and with stage 5 chronic kidney disease, or end stage renal disease (principal); I50.23 Acute on chronic systolic (congestive) heart failure; I21.4 Non-ST elevation (NSTEMI) myocardial infarction; D68.2 Hereditary deficiency of other clotting factors; N39.0 Urinary tract infection, site not specified; N17.9 Acute kidney failure, unspecified; N18.5 Chronic kidney disease, stage 5; I44.7 Left bundle-branch block, unspecified; E03.9 Hypothyroidism, unspecified; E78.5 Hyperlipidemia, unspecified; G20 Parkinson's disease; I25.10 Atherosclerotic heart disease of native coronary artery without angina pectoris; E11.22 Type 2 diabetes mellitus with diabetic chronic kidney disease; R94.31 Abnormal electrocardiogram [ECG] [EKG]; R00.0 Tachycardia, unspecified; D64.9 Anemia, unspecified; I25.119 Atherosclerotic heart disease of native coronary artery with unspecified angina pectoris; E11.21 Type 2 diabetes mellitus with diabetic nephropathy; E11.65 Type 2 diabetes mellitus with hyperglycemia; K44.9 Diaphragmatic hernia without obstruction or gangrene; F41.9 Anxiety disorder, unspecified; M10.9 Gout, unspecified; K21.00 Gastro-esophageal reflux disease with esophagitis, without bleeding; W18.30XA Fall on same level, unspecified, initial encounter; Y92.098 Other place in other non-institutional residence as the place of occurrence of the external cause; Z95.5 Presence of coronary angioplasty implant and graft; Z91.14 Patient's other noncompliance with medication regimen
CPT/HCPCS: 36415; 70450-TC; 71045-TC-FY; 72125-TC; 74176-TC; 80048; 80053; 82272; 82550; 82962; 83735; 83880; 84100; 84436; 84443; 84484; 85025; 85027; 85610; 85730; 93005; 93010; 93306-TC; 93880-TC; 97116-GP; 97162-GP; 99285-25; C9803; G0378; J0131; J1644; U0003; U0005

== ENCOUNTER 2020-11-24 15:24 | Inpatient (IN) | payer OTHER ==
[2020-11-24 21:21] LABS: BASO % 0.6 % (0-2.0); HEMATOCRIT 37.7 % (32.4-45.2); HEMOGLOBIN 11.9 GM/dL (10.7-15.3); LYMPH % 24.8 % (8-40); MCHC 31.7 g/dl (32.0-36.0); MEAN CELL VOLUME 88.2 fl (80-96); MEAN PLT VOLUME 7.9 fl (7.5-11.1); MONO % 11.9 % (3.8-10.2); NEUT % 61.7 % (42.8-82.8); PLATELET COUNT 253 10^3/uL (134-434); RBC 4.27 M/mm3 (3.60-5.2); RDW 16.5 % (11.6-15.6); WHITE BLOOD COUNT 4.6 K/mm3 (4.0-10.0)
[2020-11-24] MEDS ORDERED: ACETAMINOPHEN 1000 MG/100 ML VIAL (NON FORMULARY) IVPB ONE (21:36)
[2020-11-24 21:42] LABS: ALBUMIN 3.2 g/dl (3.4-5.0); BLOOD UREA NITROGEN 75.6 mg/dL (7-18); CALCIUM 9.9 mg/dL (8.5-10.1)
[2020-11-24] MEDS ORDERED: LIDOCAINE 5% TOPICAL PATCH TP ONE (21:42)
[2020-11-24] MEDS ORDERED: ACETAMINOPHEN INJECTION 100 ML IVPB ONE (21:44)
[2020-11-24] MEDS ORDERED: LIDOCAINE 5% TOPICAL PATCH ONE (21:44)
[2020-11-24 21:46] LABS: CREATININE 4.2 mg/dL (0.55-1.3)
[2020-11-24 21:47] LABS: BILIRUBIN,TOTAL 0.6 mg/dL (0.2-1); TOT PROT 7.2 g/dl (6.4-8.2)
[2020-11-24 22:37] LABS: N-TERMINAL BNP 72370.3 pg/ml (5-125)
[2020-11-24 22:41] LABS: EPI CELLS 12 /uL (0-25.1); HYALINE CASTS 1 /uL (0-3.1); URINE APPEARANCE TURBID; URINE BACTERIA 4494 /uL (0-1359); URINE BILIRUBIN NEGATIVE (NEGATIVE); URINE COLOR YELLOW; URINE GLUCOSE (UA) NEGATIVE (NEGATIVE); URINE KETONE NEGATIVE (NEGATIVE); URINE LEUK ESTERASE 3+ (NEGATIVE); URINE NITRITE POSITIVE (NEGATIVE); URINE PROTEIN 2+ (NEGATIVE); URINE UROBILINOGEN 0.2 mg/dL (0.2-1.0); URINE WBC 3197 /uL (0-25.8)
[2020-11-24] MEDS ORDERED: CEFTRIAXONE 1,000 MG in DEXTROSE 5%-WATER - 50 ML IVPB ONE (22:47)
[2020-11-24] MEDS ORDERED: SODIUM CHLORIDE 0.9% 500 ML INFUS.BAG IV ONE (22:48)
[2020-11-24] MEDS ORDERED: CEFTRIAXONE 1 GM/50 ML BAG ONE (23:07)
[2020-11-24 23:55] LABS: URINE RBC 57.5 /uL (0-23.9); YEAST NONE SEEN (NEGATIVE)
[2020-11-25] MEDS ORDERED: FUROSEMIDE 40 MG/4 ML INJECTABLE VIAL IVPUSH ONE (00:12)
[2020-11-25] MEDS ORDERED: FUROSEMIDE 40 MG/4 ML INJECTABLE VIAL ONE ×3 (00:30→17:24)
[2020-11-25] MEDS ORDERED: morphine CARPU-JECT 2 MG/1 ML DISP.SYRIN IVPUSH ONE (01:16)
[2020-11-25] MEDS ORDERED: MORPHINE SULFATE 2 MG/ML VIAL ONE ×2 (01:31→17:24)
[2020-11-25] MEDS ORDERED: ACETAMINOPHEN 325 MG TABLET (FP) ONE ×3 (05:19→17:18)
[2020-11-25] MEDS: ACETAMINOPHEN 325 MG TABLET (FP) PO PRN ×2 (05:35→12:51)
[2020-11-25] MEDS ORDERED: FUROSEMIDE 40 MG/4 ML INJECTABLE VIAL IVPUSH SCH (06:00)
[2020-11-25] MEDS ORDERED: HEPARIN NA (PORCINE) 5,000 UNITS/ML 1ML VIAL ONE ×3 (06:08→17:29)
[2020-11-25 06:16] LABS: HEMATOCRIT 35.7 % (32.4-45.2); HEMOGLOBIN 11.5 GM/dL (10.7-15.3); MCH 28.4 pg (25.7-33.7); MCHC 32.1 g/dl (32.0-36.0); MEAN CELL VOLUME 88.6 fl (80-96); MEAN PLT VOLUME 7.9 fl (7.5-11.1); PLATELET COUNT 232 10^3/uL (134-434); RBC 4.03 M/mm3 (3.60-5.2); RDW 16.8 % (11.6-15.6)
[2020-11-25] MEDS: HEPARIN NA (PORCINE) 5,000 UNITS/ML 1ML VIAL SQ SCH ×3 (06:22→22:32)
[2020-11-25 06:38] LABS: CALCIUM 8.9 mg/dL (8.5-10.1)
[2020-11-25 06:39] LABS: BLOOD UREA NITROGEN 74.7 mg/dL (7-18); MAGNESIUM 2.1 mg/dL (1.8-2.4)
[2020-11-25 06:42] LABS: CREATININE 4.1 mg/dL (0.55-1.3); PHOSPHOROUS 5.2 mg/dL (2.5-4.9)
[2020-11-25] MEDS: INSULIN SLIDING SCALE (NOVOLOG) 1 VIAL SQ SCH ×4 (07:07→22:32)
[2020-11-25] MEDS ORDERED: GLYCERIN 1 RECTAL SUPPOSITORY, ADULT RC ONE (11:15)
[2020-11-25] MEDS ORDERED: metoPROLOL SUCCINATE 25 MG TAB.SR.24H (FP) ONE (11:32)
[2020-11-25] MEDS ORDERED: ASPIRIN COATED 81 MG TABLET.EC ONE (11:32)
[2020-11-25] MEDS ORDERED: CLOPIDOGREL BISULFATE 75 MG TABLET (FP) ONE (11:32)
[2020-11-25] MEDS ORDERED: SPIRONOLACTONE 25 MG TABLET ONE (11:33)
[2020-11-25] MEDS ORDERED: CEFTRIAXONE 1 GM/50 ML BAG ONE (11:33)
[2020-11-25] MEDS ORDERED: LIDOCAINE 5% TOPICAL PATCH ONE (11:36)
[2020-11-25] MEDS: LIDOCAINE 5% TOPICAL PATCH TP SCH (12:17)
[2020-11-25] MEDS: SPIRONOLACTONE 25 MG TABLET PO SCH (12:17)
[2020-11-25] MEDS: ASPIRIN COATED 81 MG TABLET.EC PO SCH (12:17)
[2020-11-25] MEDS: CLOPIDOGREL BISULFATE 75 MG TABLET (FP) PO SCH (12:17)
[2020-11-25] MEDS: CEFTRIAXONE 1 GM in DEXTROSE 5%-WATER - 50 ML IVPB SCH (12:18)
[2020-11-25] MEDS: metoPROLOL SUCCINATE 25 MG TAB.SR.24H (FP) PO SCH (12:18)
[2020-11-25] MEDS ORDERED: MORPHINE SULFATE 2 MG/ML VIAL IVPUSH ONE (17:03)
[2020-11-25] MEDS ORDERED: hydrALAZINE HCL 25 MG TABLET (FP) ONE (17:18)
[2020-11-25] MEDS: FUROSEMIDE 40 MG/4 ML INJECTABLE VIAL IVPUSH SCH (17:45)
[2020-11-25] MEDS: ATORVASTATIN CA 80 MG TABLET (FP) PO SCH (22:32)
[2020-11-25] MEDS: LIDOCAINE PATCH REMOVAL MC SCH (22:40)
[2020-11-25 23:01] VITALS: BMI 25.9
[2020-11-26] MEDS: HEPARIN NA (PORCINE) 5,000 UNITS/ML 1ML VIAL SQ SCH ×3 (05:53→22:19)
[2020-11-26] MEDS: FUROSEMIDE 40 MG/4 ML INJECTABLE VIAL IVPUSH SCH ×2 (05:53→13:16)
[2020-11-26] MEDS: INSULIN SLIDING SCALE (NOVOLOG) 1 VIAL SQ SCH ×4 (06:45→22:28)
[2020-11-26] MEDS ORDERED: DEXTROSE 5%-WATER - 50 ML IVPB ONE (08:59)
[2020-11-26] MEDS ORDERED: cefTRIAXone SODIUM 1 GM VIAL ONE (08:59)
[2020-11-26] MEDS: CLOPIDOGREL BISULFATE 75 MG TABLET (FP) PO SCH (09:29)
[2020-11-26] MEDS: SPIRONOLACTONE 25 MG TABLET PO SCH (09:29)
[2020-11-26] MEDS: metoPROLOL SUCCINATE 25 MG TAB.SR.24H (FP) PO SCH (09:30)
[2020-11-26] MEDS: CEFTRIAXONE 1 GM in DEXTROSE 5%-WATER - 50 ML IVPB SCH (09:31)
[2020-11-26] MEDS: ASPIRIN COATED 81 MG TABLET.EC PO SCH (09:42)
[2020-11-26] MEDS: LIDOCAINE 5% TOPICAL PATCH TP SCH (09:43)
[2020-11-26] MEDS: ACETAMINOPHEN 325 MG TABLET (FP) PO PRN (09:52)
[2020-11-26] MEDS ORDERED: amLODIPine BESYLATE 5 MG TABLET (FP) PO SCH (10:45)
[2020-11-26] MEDS: GABAPENTIN 100 MG CAPSULE PO SCH ×2 (11:36→22:20)
[2020-11-26 16:12] LABS: BASO % 0.9 % (0-2.0); EOS % 1.4 % (0-4.5); LYMPH % 36.3 % (8-40); MCH 28.2 pg (25.7-33.7); MCHC 31.7 g/dl (32.0-36.0); MEAN CELL VOLUME 89.1 fl (80-96); MEAN PLT VOLUME 8.2 fl (7.5-11.1); MONO % 13.5 % (3.8-10.2); NEUT % 47.9 % (42.8-82.8); PLATELET COUNT 266 10^3/uL (134-434); RDW 16.8 % (11.6-15.6); WHITE BLOOD COUNT 3.9 K/mm3 (4.0-10.0)
[2020-11-26 16:31] LABS: ALBUMIN 3.2 g/dl (3.4-5.0); BLOOD UREA NITROGEN 75.1 mg/dL (7-18); CALCIUM 9.8 mg/dL (8.5-10.1); MAGNESIUM 2.3 mg/dL (1.8-2.4)
[2020-11-26 16:34] LABS: CREATININE 4.3 mg/dL (0.55-1.3)
[2020-11-26 16:35] LABS: PHOSPHOROUS 4.7 mg/dL (2.5-4.9)
[2020-11-26 16:36] LABS: BILIRUBIN,TOTAL 0.4 mg/dL (0.2-1); TOT PROT 7.2 g/dl (6.4-8.2)
[2020-11-26] MEDS: oxyCODONE HCL 5 MG TABLET PO PRN ×2 (16:40→22:20)
[2020-11-26] MEDS: ATORVASTATIN CA 80 MG TABLET (FP) PO SCH (22:19)
[2020-11-26] MEDS: LIDOCAINE PATCH REMOVAL MC SCH (22:30)
[2020-11-27] MEDS: HEPARIN NA (PORCINE) 5,000 UNITS/ML 1ML VIAL SQ SCH ×3 (05:40→21:51)
[2020-11-27] MEDS: FUROSEMIDE 40 MG/4 ML INJECTABLE VIAL IVPUSH SCH ×2 (05:40→15:08)
[2020-11-27] MEDS: INSULIN SLIDING SCALE (NOVOLOG) 1 VIAL SQ SCH ×4 (06:18→21:50)
[2020-11-27] MEDS: oxyCODONE HCL 5 MG TABLET PO PRN ×3 (06:23→20:26)
[2020-11-27 07:58] LABS: BASO % 0.7 % (0-2.0); EOS % 2.4 % (0-4.5); HEMOGLOBIN 12.8 GM/dL (10.7-15.3); MCH 28.3 pg (25.7-33.7); MCHC 31.9 g/dl (32.0-36.0); MEAN CELL VOLUME 88.9 fl (80-96); MEAN PLT VOLUME 8.3 fl (7.5-11.1); MONO % 10.1 % (3.8-10.2); NEUT % 53.8 % (42.8-82.8); PLATELET COUNT 272 10^3/uL (134-434); WHITE BLOOD COUNT 3.5 K/mm3 (4.0-10.0)
[2020-11-27 08:20] LABS: BLOOD UREA NITROGEN 74.7 mg/dL (7-18); CALCIUM 9.6 mg/dL (8.5-10.1); MAGNESIUM 2.3 mg/dL (1.8-2.4)
[2020-11-27 08:23] LABS: CREATININE 4.1 mg/dL (0.55-1.3)
[2020-11-27 08:24] LABS: BILIRUBIN,TOTAL 0.5 mg/dL (0.2-1)
[2020-11-27] MEDS ORDERED: DEXTROSE 5%-WATER - 50 ML IVPB ONE (10:22)
[2020-11-27] MEDS ORDERED: cefTRIAXone SODIUM 1 GM VIAL ONE (10:22)
[2020-11-27] MEDS: CEFTRIAXONE 1 GM in DEXTROSE 5%-WATER - 50 ML IVPB SCH (10:29)
[2020-11-27] MEDS: amLODIPine BESYLATE 5 MG TABLET (FP) PO SCH (10:30)
[2020-11-27] MEDS: ASPIRIN COATED 81 MG TABLET.EC PO SCH (10:30)
[2020-11-27] MEDS: SPIRONOLACTONE 25 MG TABLET PO SCH (10:30)
[2020-11-27] MEDS: CLOPIDOGREL BISULFATE 75 MG TABLET (FP) PO SCH (10:30)
[2020-11-27] MEDS: GABAPENTIN 100 MG CAPSULE PO SCH ×2 (10:30→21:51)
[2020-11-27] MEDS: LIDOCAINE 5% TOPICAL PATCH TP SCH (10:31)
[2020-11-27] MEDS ORDERED: METOLAZONE 2.5 MG TABLET (FP) PO ONE (15:42)
[2020-11-27] MEDS: ACETAMINOPHEN 325 MG TABLET (FP) PO PRN (20:27)
[2020-11-27] MEDS: ATORVASTATIN CA 80 MG TABLET (FP) PO SCH (21:50)
[2020-11-27] MEDS: LIDOCAINE PATCH REMOVAL MC SCH (21:53)
[2020-11-28] MEDS: FUROSEMIDE 40 MG/4 ML INJECTABLE VIAL IVPUSH SCH ×2 (06:32→15:25)
[2020-11-28] MEDS: HEPARIN NA (PORCINE) 5,000 UNITS/ML 1ML VIAL SQ SCH ×3 (06:33→22:25)
[2020-11-28] MEDS: INSULIN SLIDING SCALE (NOVOLOG) 1 VIAL SQ SCH ×4 (06:33→22:26)
[2020-11-28 08:10] LABS: ALBUMIN 2.7 g/dl (3.4-5.0); BLOOD UREA NITROGEN 74.3 mg/dL (7-18); CALCIUM 8.6 mg/dL (8.5-10.1); MAGNESIUM 2.2 mg/dL (1.8-2.4)
[2020-11-28 08:14] LABS: CREATININE 4.2 mg/dL (0.55-1.3); PHOSPHOROUS 4.7 mg/dL (2.5-4.9)
[2020-11-28 08:15] LABS: BILIRUBIN,TOTAL 0.3 mg/dL (0.2-1); TOT PROT 6.3 g/dl (6.4-8.2)
[2020-11-28] MEDS ORDERED: cefTRIAXone SODIUM 1 GM VIAL ONE (10:14)
[2020-11-28] MEDS ORDERED: DEXTROSE 5%-WATER - 50 ML IVPB ONE ×2 (10:15→21:53)
[2020-11-28] MEDS: SPIRONOLACTONE 25 MG TABLET PO SCH (10:49)
[2020-11-28] MEDS: ASPIRIN COATED 81 MG TABLET.EC PO SCH (10:49)
[2020-11-28] MEDS: CLOPIDOGREL BISULFATE 75 MG TABLET (FP) PO SCH (10:50)
[2020-11-28] MEDS: LIDOCAINE 5% TOPICAL PATCH TP SCH (10:50)
[2020-11-28] MEDS: amLODIPine BESYLATE 5 MG TABLET (FP) PO SCH (10:50)
[2020-11-28] MEDS: GABAPENTIN 100 MG CAPSULE PO SCH ×2 (10:50→22:26)
[2020-11-28] MEDS: CEFTRIAXONE 1 GM in DEXTROSE 5%-WATER - 50 ML IVPB SCH (10:50)
[2020-11-28 12:00] LABS: BASO % 0.7 % (0-2.0); EOS % 0.9 % (0-4.5); HEMATOCRIT 37.1 % (32.4-45.2); HEMOGLOBIN 11.7 GM/dL (10.7-15.3); LYMPH % 26.2 % (8-40); MCH 28.1 pg (25.7-33.7); MCHC 31.6 g/dl (32.0-36.0); MEAN PLT VOLUME 8.3 fl (7.5-11.1); NEUT % 60.2 % (42.8-82.8); PLATELET COUNT 223 10^3/uL (134-434); RBC 4.17 M/mm3 (3.60-5.2); RDW 16.9 % (11.6-15.6); WHITE BLOOD COUNT 3.7 K/mm3 (4.0-10.0)
[2020-11-28] MEDS ORDERED: METOLAZONE 2.5 MG TABLET (FP) PO SCH (15:45)
[2020-11-28] MEDS ORDERED: PIPERACILLIN/TAZOB 2.25 GM 2.25 GM in DEXTROSE 5%-WATER - 50 ML IVPB SCH (19:00)
[2020-11-28] MEDS ORDERED: PIPERACILLIN/TAZOBACTAM 2.25 GM VIAL IVPB ONE (21:52)
[2020-11-28] MEDS: PIPERACILLIN/TAZOB 2.25 GM 2.25 GM in DEXTROSE 5%-WATER - 50 ML IVPB SCH (22:25)
[2020-11-28] MEDS: LIDOCAINE PATCH REMOVAL MC SCH (22:25)
[2020-11-28] MEDS: ATORVASTATIN CA 80 MG TABLET (FP) PO SCH (22:25)
[2020-11-28] MEDS: ACETAMINOPHEN 325 MG TABLET (FP) PO PRN (22:33)
[2020-11-29] MEDS: PIPERACILLIN/TAZOB 2.25 GM 2.25 GM in DEXTROSE 5%-WATER - 50 ML IVPB SCH ×2 (03:00→10:23)
[2020-11-29] MEDS ORDERED: PIPERACILLIN/TAZOBACTAM 2.25 GM VIAL IVPB ONE ×2 (05:14→10:12)
[2020-11-29] MEDS ORDERED: DEXTROSE 5%-WATER - 50 ML IVPB ONE ×2 (05:14→10:12)
[2020-11-29] MEDS: HEPARIN NA (PORCINE) 5,000 UNITS/ML 1ML VIAL SQ SCH ×3 (06:31→21:54)
[2020-11-29] MEDS: FUROSEMIDE 40 MG/4 ML INJECTABLE VIAL IVPUSH SCH ×2 (06:31→13:45)
[2020-11-29] MEDS: INSULIN SLIDING SCALE (NOVOLOG) 1 VIAL SQ SCH ×4 (06:32→21:55)
[2020-11-29] MEDS ORDERED: PT OWN MED DRAWER 7, Y5N ONE (09:23)
[2020-11-29] MEDS: SPIRONOLACTONE 25 MG TABLET PO SCH (09:58)
[2020-11-29] MEDS: ASPIRIN COATED 81 MG TABLET.EC PO SCH (09:58)
[2020-11-29] MEDS: LIDOCAINE 5% TOPICAL PATCH TP SCH (09:58)
[2020-11-29] MEDS: GABAPENTIN 100 MG CAPSULE PO SCH ×2 (09:58→21:55)
[2020-11-29] MEDS: amLODIPine BESYLATE 5 MG TABLET (FP) PO SCH (09:59)
[2020-11-29] MEDS ORDERED: METOLAZONE 2.5 MG TABLET (FP) PO SCH (10:00)
[2020-11-29] MEDS: CLOPIDOGREL BISULFATE 75 MG TABLET (FP) PO SCH (10:00)
[2020-11-29] MEDS: LEVOTHYROXINE NA 100 MCG TABLET (FP) PO SCH (10:01)
[2020-11-29] MEDS: ACETAMINOPHEN 325 MG TABLET (FP) PO PRN ×2 (10:17→22:30)
[2020-11-29 12:00] LABS: BASO % 0.5 % (0-2.0); HEMATOCRIT 36.4 % (32.4-45.2); HEMOGLOBIN 11.6 GM/dL (10.7-15.3); LYMPH % 21.9 % (8-40); MCH 28.3 pg (25.7-33.7); MCHC 31.9 g/dl (32.0-36.0); MEAN CELL VOLUME 88.9 fl (80-96); MEAN PLT VOLUME 8.4 fl (7.5-11.1); NEUT % 64.6 % (42.8-82.8); PLATELET COUNT 222 10^3/uL (134-434); RBC 4.09 M/mm3 (3.60-5.2); RDW 17.2 % (11.6-15.6); WHITE BLOOD COUNT 3.8 K/mm3 (4.0-10.0)
[2020-11-29 12:19] LABS: ALBUMIN 2.6 g/dl (3.4-5.0); CALCIUM 8.3 mg/dL (8.5-10.1)
[2020-11-29 12:20] LABS: BLOOD UREA NITROGEN 71.5 mg/dL (7-18); MAGNESIUM 2.3 mg/dL (1.8-2.4)
[2020-11-29 12:23] LABS: CREATININE 4.3 mg/dL (0.55-1.3); PHOSPHOROUS 4.4 mg/dL (2.5-4.9)
[2020-11-29 12:24] LABS: BILIRUBIN,TOTAL 0.3 mg/dL (0.2-1); TOT PROT 6.2 g/dl (6.4-8.2)
[2020-11-29] MEDS: METOLAZONE 2.5 MG TABLET (FP) PO SCH (13:12)
[2020-11-29] MEDS: LIDOCAINE PATCH REMOVAL MC SCH (21:55)
[2020-11-29] MEDS: ATORVASTATIN CA 80 MG TABLET (FP) PO SCH (21:55)
[2020-11-30] MEDS: METOLAZONE 2.5 MG TABLET (FP) PO SCH (06:00)
[2020-11-30] MEDS ORDERED: PT OWN MED DRAWER 7, Y5N ONE (06:36)
[2020-11-30] MEDS: HEPARIN NA (PORCINE) 5,000 UNITS/ML 1ML VIAL SQ SCH ×3 (06:38→21:56)
[2020-11-30] MEDS: FUROSEMIDE 40 MG/4 ML INJECTABLE VIAL IVPUSH SCH ×2 (06:57→15:09)
[2020-11-30] MEDS: INSULIN SLIDING SCALE (NOVOLOG) 1 VIAL SQ SCH ×4 (06:57→21:55)
[2020-11-30] MEDS: LEVOTHYROXINE NA 100 MCG TABLET (FP) PO SCH (06:57)
[2020-11-30] MEDS: LIDOCAINE 5% TOPICAL PATCH TP SCH (10:14)
[2020-11-30] MEDS: GABAPENTIN 100 MG CAPSULE PO SCH ×2 (10:14→21:56)
[2020-11-30] MEDS: amLODIPine BESYLATE 5 MG TABLET (FP) PO SCH (10:14)
[2020-11-30] MEDS: ASPIRIN COATED 81 MG TABLET.EC PO SCH (10:15)
[2020-11-30] MEDS: SPIRONOLACTONE 25 MG TABLET PO SCH (10:15)
[2020-11-30] MEDS: CLOPIDOGREL BISULFATE 75 MG TABLET (FP) PO SCH (10:15)
[2020-11-30 11:13] LABS: HEMATOCRIT 40.5 % (32.4-45.2); HEMOGLOBIN 12.9 GM/dL (10.7-15.3); MCHC 31.8 g/dl (32.0-36.0); MEAN CELL VOLUME 88.2 fl (80-96); MEAN PLT VOLUME 8.1 fl (7.5-11.1); PLATELET COUNT 214 10^3/uL (134-434); RBC 4.59 M/mm3 (3.60-5.2); RDW 17.3 % (11.6-15.6); WHITE BLOOD COUNT 4.8 K/mm3 (4.0-10.0)
[2020-11-30 11:38] LABS: ALBUMIN 2.9 g/dl (3.4-5.0); BLOOD UREA NITROGEN 74.2 mg/dL (7-18); CALCIUM 8.8 mg/dL (8.5-10.1); MAGNESIUM 2.2 mg/dL (1.8-2.4)
[2020-11-30 11:42] LABS: CREATININE 4.4 mg/dL (0.55-1.3); PHOSPHOROUS 4.4 mg/dL (2.5-4.9)
[2020-11-30 11:43] LABS: BILIRUBIN,TOTAL 0.4 mg/dL (0.2-1); TOT PROT 6.8 g/dl (6.4-8.2)
[2020-11-30] MEDS: ACETAMINOPHEN 325 MG TABLET (FP) PO PRN (12:34)
[2020-11-30] MEDS: LIDOCAINE PATCH REMOVAL MC SCH (21:50)
[2020-11-30] MEDS: ATORVASTATIN CA 80 MG TABLET (FP) PO SCH (21:56)
[2020-12-01] MEDS ORDERED: PT OWN MED DRAWER 7, Y5N ONE (05:20)
[2020-12-01] MEDS: METOLAZONE 2.5 MG TABLET (FP) PO SCH (05:23)
[2020-12-01] MEDS: INSULIN SLIDING SCALE (NOVOLOG) 1 VIAL SQ SCH ×4 (06:24→21:31)
[2020-12-01] MEDS: HEPARIN NA (PORCINE) 5,000 UNITS/ML 1ML VIAL SQ SCH ×3 (06:24→21:32)
[2020-12-01] MEDS: LEVOTHYROXINE NA 100 MCG TABLET (FP) PO SCH (06:25)
[2020-12-01] MEDS: FUROSEMIDE 40 MG/4 ML INJECTABLE VIAL IVPUSH SCH ×2 (06:25→15:09)
[2020-12-01 08:36] LABS: BASO % 0.6 % (0-2.0); EOS % 1.3 % (0-4.5); HEMATOCRIT 38.4 % (32.4-45.2); HEMOGLOBIN 12.3 GM/dL (10.7-15.3); LYMPH % 32.5 % (8-40); MCH 28.4 pg (25.7-33.7); MEAN CELL VOLUME 88.7 fl (80-96); MEAN PLT VOLUME 8.5 fl (7.5-11.1); MONO % 9.3 % (3.8-10.2); NEUT % 56.3 % (42.8-82.8); PLATELET COUNT 247 10^3/uL (134-434); RBC 4.33 M/mm3 (3.60-5.2); RDW 17.1 % (11.6-15.6); WHITE BLOOD COUNT 3.6 K/mm3 (4.0-10.0)
[2020-12-01 09:07] LABS: ALBUMIN 2.7 g/dl (3.4-5.0); BLOOD UREA NITROGEN 70.5 mg/dL (7-18); CALCIUM 8.9 mg/dL (8.5-10.1); MAGNESIUM 2.4 mg/dL (1.8-2.4)
[2020-12-01 09:09] LABS: PHOSPHOROUS 4.6 mg/dL (2.5-4.9)
[2020-12-01 09:10] LABS: BILIRUBIN,TOTAL 0.5 mg/dL (0.2-1); TOT PROT 6.3 g/dl (6.4-8.2)
[2020-12-01] MEDS: amLODIPine BESYLATE 5 MG TABLET (FP) PO SCH (10:22)
[2020-12-01] MEDS: SPIRONOLACTONE 25 MG TABLET PO SCH (10:22)
[2020-12-01] MEDS: GABAPENTIN 100 MG CAPSULE PO SCH ×2 (10:22→21:32)
[2020-12-01] MEDS: ASPIRIN COATED 81 MG TABLET.EC PO SCH (10:22)
[2020-12-01] MEDS: CLOPIDOGREL BISULFATE 75 MG TABLET (FP) PO SCH (10:22)
[2020-12-01] MEDS: LIDOCAINE 5% TOPICAL PATCH TP SCH (10:23)
[2020-12-01] MEDS: ACETAMINOPHEN 325 MG TABLET (FP) PO PRN ×2 (12:32→20:12)
[2020-12-01] MEDS ORDERED: DOCUSATE SODIUM 100 MG CAPSULE (FP) PO PRN (16:23)
[2020-12-01] MEDS: POLYETHYLENE GLYCOL (HEALTHYLAX) 3350 17 GM PACKET PO SCH (17:57)
[2020-12-01] MEDS ORDERED: INSULIN (NOVOLOG) ASPART 100 UNITS/ML 10ML VIAL ONE (21:18)
[2020-12-01] MEDS ORDERED: INSULIN (LEVEMIR) 100 UNITS/ML UNITS SQ ONE (21:18)
[2020-12-01] MEDS: ATORVASTATIN CA 80 MG TABLET (FP) PO SCH (21:32)
[2020-12-01] MEDS: LIDOCAINE PATCH REMOVAL MC SCH (21:32)
[2020-12-01] MEDS ORDERED: ACETAMINOPHEN 1000 MG/100 ML VIAL (NON FORMULARY) IVPB ONE (22:54)
[2020-12-02] MEDS ORDERED: PT OWN MED DRAWER 7, Y5N ONE (05:35)
[2020-12-02] MEDS: ACETAMINOPHEN 325 MG TABLET (FP) PO PRN (05:37)
[2020-12-02] MEDS: METOLAZONE 2.5 MG TABLET (FP) PO SCH (05:37)
[2020-12-02] MEDS: INSULIN SLIDING SCALE (NOVOLOG) 1 VIAL SQ SCH ×2 (06:46→12:20)
[2020-12-02] MEDS: HEPARIN NA (PORCINE) 5,000 UNITS/ML 1ML VIAL SQ SCH ×2 (06:46→14:05)
[2020-12-02] MEDS: FUROSEMIDE 40 MG/4 ML INJECTABLE VIAL IVPUSH SCH ×2 (06:47→14:05)
[2020-12-02] MEDS: LEVOTHYROXINE NA 100 MCG TABLET (FP) PO SCH (06:47)
[2020-12-02 08:11] LABS: BASO % 0.6 % (0-2.0); EOS % 1.1 % (0-4.5); LYMPH % 42.1 % (8-40); MCH 28.2 pg (25.7-33.7); MCHC 32.6 g/dl (32.0-36.0); MEAN CELL VOLUME 86.7 fl (80-96); MEAN PLT VOLUME 8.3 fl (7.5-11.1); MONO % 10.5 % (3.8-10.2); NEUT % 45.7 % (42.8-82.8); PLATELET COUNT 237 10^3/uL (134-434); RBC 4.26 M/mm3 (3.60-5.2); RDW 16.8 % (11.6-15.6)
[2020-12-02 08:39] LABS: ALBUMIN 2.7 g/dl (3.4-5.0); BLOOD UREA NITROGEN 74.9 mg/dL (7-18); CALCIUM 8.8 mg/dL (8.5-10.1)
[2020-12-02 08:42] LABS: CREATININE 4.2 mg/dL (0.55-1.3); PHOSPHOROUS 4.8 mg/dL (2.5-4.9)
[2020-12-02 08:43] LABS: MAGNESIUM 1.9 mg/dL (1.8-2.4)
[2020-12-02 08:44] LABS: BILIRUBIN,TOTAL 0.4 mg/dL (0.2-1); TOT PROT 6.3 g/dl (6.4-8.2)
[2020-12-02] MEDS ORDERED: PANTOPRAZOLE 40 MG TABLET PO SCH (10:00)
[2020-12-02] MEDS: amLODIPine BESYLATE 5 MG TABLET (FP) PO SCH (11:01)
[2020-12-02] MEDS: GABAPENTIN 100 MG CAPSULE PO SCH (11:01)
[2020-12-02] MEDS: LIDOCAINE 5% TOPICAL PATCH TP SCH (11:02)
[2020-12-02] MEDS: SPIRONOLACTONE 25 MG TABLET PO SCH (11:02)
[2020-12-02] MEDS: ASPIRIN COATED 81 MG TABLET.EC PO SCH (11:02)
[2020-12-02] MEDS: CLOPIDOGREL BISULFATE 75 MG TABLET (FP) PO SCH (11:02)
[2020-12-02] MEDS: POLYETHYLENE GLYCOL (HEALTHYLAX) 3350 17 GM PACKET PO SCH (11:06)
[2020-12-02 11:55] VITALS: PULSE 88
[2020-12-02] MEDS ORDERED: traMADol HCL 50 MG TABLET PO PRN (14:24)
[2020-12-02 15:26] VITALS: BP 140/76; TEMP 97.5
== END 2020-12-02 16:59 | disposition home health service (06) | DRG 291 ==
LOC: JER 15:24 → JERBED 11-25 00:13 → J4W 11-25 21:49
PROVIDERS: ADMIT Internal Medicine; ATTEND Internal Medicine
DX: I13.2 Hypertensive heart and chronic kidney disease with heart failure and with stage 5 chronic kidney disease, or end stage renal disease (principal); I50.23 Acute on chronic systolic (congestive) heart failure; D68.2 Hereditary deficiency of other clotting factors; N39.0 Urinary tract infection, site not specified; J98.11 Atelectasis; N17.9 Acute kidney failure, unspecified; N18.5 Chronic kidney disease, stage 5; I25.10 Atherosclerotic heart disease of native coronary artery without angina pectoris; E11.22 Type 2 diabetes mellitus with diabetic chronic kidney disease; E03.9 Hypothyroidism, unspecified; Z95.1 Presence of aortocoronary bypass graft; Z79.4 Long term (current) use of insulin; G20 Parkinson's disease; M48.061 Spinal stenosis, lumbar region without neurogenic claudication; K43.9 Ventral hernia without obstruction or gangrene; I44.7 Left bundle-branch block, unspecified; M54.32 Sciatica, left side
CPT/HCPCS: 36415; 71046-TC-FY; 72131-TC; 74018-TC-FY; 74176-TC; 76775-TC; 80048; 80053; 81003; 82550; 82962; 83735; 83880; 84100; 84484; 85025; 85027; 87086; 87186; 93005; 93010; 93970-TC; 97116-GP; 97161-GP; 99285-25; C9803; J0131; J1644; U0003; U0005

== ENCOUNTER 2020-12-05 07:03 | Inpatient (IN) | payer OTHER ==
[2020-12-05] MEDS ORDERED: DEXTROSE 50%-WATER - 25 GM/50 ML VIAL IVPUSH ONE (08:17)
[2020-12-05] MEDS ORDERED: DEXTROSE 50%-WATER 25 GM/50 ML DISP.SYRIN ONE (08:17)
[2020-12-05 08:30] LABS: BASO % 0.6 % (0-2.0); EOS % 0.3 % (0-4.5); HEMATOCRIT 37.6 % (32.4-45.2); HEMOGLOBIN 12.2 GM/dL (10.7-15.3); LYMPH % 12.1 % (8-40); MCH 28.1 pg (25.7-33.7); MCHC 32.4 g/dl (32.0-36.0); MEAN CELL VOLUME 86.6 fl (80-96); MEAN PLT VOLUME 8.3 fl (7.5-11.1); MONO % 10.7 % (3.8-10.2); NEUT % 76.3 % (42.8-82.8); PLATELET COUNT 245 10^3/uL (134-434); RBC 4.34 M/mm3 (3.60-5.2); RDW 16.9 % (11.6-15.6); WHITE BLOOD COUNT 5.8 K/mm3 (4.0-10.0)
[2020-12-05 09:41] LABS: EPI CELLS 6 /uL (0-25.1); HYALINE CASTS 1 /uL (0-3.1); PH,URINE 5.5 (5.0-8.0); URINE APPEARANCE CLEAR; URINE BACTERIA 4075 /uL (0-1359); URINE BILIRUBIN NEGATIVE (NEGATIVE); URINE COLOR YELLOW; URINE GLUCOSE (UA) 1+ (NEGATIVE); URINE KETONE NEGATIVE (NEGATIVE); URINE LEUK ESTERASE 1+ (NEGATIVE); URINE NITRITE NEGATIVE (NEGATIVE); URINE PROTEIN 2+ (NEGATIVE); URINE RBC 12 /uL (0-23.9); URINE UROBILINOGEN 0.2 mg/dL (0.2-1.0); URINE WBC 289 /uL (0-25.8)
[2020-12-05] MEDS ORDERED: PIPERACILLIN/TAZOB 2.25 GM 2.25 GM in DEXTROSE 5%-WATER - 50 ML IVPB ONE (10:17)
[2020-12-05] MEDS ORDERED: PIPERACILLIN/TAZOB 2.25 GM 2.25 GM/50 ML BAG IVPB ONE (10:18)
[2020-12-05 10:45] LABS: BLOOD UREA NITROGEN 79.5 mg/dL (7-18)
[2020-12-05 10:46] LABS: CHLORIDE 102 mmol/L (98-107); CO2 31 mmol/L (21-32); CREATININE 4.4 mg/dL (0.55-1.3); SODIUM 141 mmol/L (136-145)
[2020-12-05 10:47] LABS: CALCIUM 8.6 mg/dL (8.5-10.1); TOT PROT 6.8 g/dl (6.4-8.2)
[2020-12-05 10:48] LABS: BILIRUBIN,TOTAL 0.4 mg/dL (0.2-1)
[2020-12-05 10:49] LABS: ALK PHOS 82 U/L (45-117)
[2020-12-05 10:50] LABS: GLUCOSE,RANDOM 33 mg/dL (74-106); SGOT/AST 26 U/L (15-37); SGPT/ALT 16 U/L (13-61)
[2020-12-05 11:02] LABS: LACTIC ACID 2.6 mmol/L (0.4-2.0)
[2020-12-05] MEDS ORDERED: amLODIPine BESYLATE 2.5 MG TABLET (FP) PO ONE (17:21)
[2020-12-05] MEDS: PANTOPRAZOLE 40 MG TABLET PO SCH (17:58)
[2020-12-05] MEDS: INSULIN SLIDING SCALE (NOVOLOG) 1 VIAL SQ SCH ×2 (17:59→22:45)
[2020-12-05] MEDS ORDERED: GABAPENTIN 100 MG CAPSULE PO ONE (18:51)
[2020-12-05 19:11] LABS: LACTIC ACID 3.1 mmol/L (0.4-2.0)
[2020-12-05] MEDS: FUROSEMIDE 40 MG TABLET (FP) PO SCH (22:19)
[2020-12-05] MEDS: ATORVASTATIN CA 80 MG TABLET (FP) PO SCH (22:20)
[2020-12-05] MEDS: HEPARIN NA (PORCINE) 5,000 UNITS/ML 1ML VIAL SQ SCH (22:27)
[2020-12-05] MEDS: ACETAMINOPHEN 1000 MG/100 ML VIAL (NON FORMULARY) IVPB PRN (23:33)
[2020-12-06] MEDS: HEPARIN NA (PORCINE) 5,000 UNITS/ML 1ML VIAL SQ SCH ×3 (05:06→21:45)
[2020-12-06] MEDS: FUROSEMIDE 40 MG TABLET (FP) PO SCH ×2 (05:07→14:02)
[2020-12-06] MEDS: LEVOTHYROXINE NA 100 MCG TABLET (FP) PO SCH (06:47)
[2020-12-06] MEDS: INSULIN SLIDING SCALE (NOVOLOG) 1 VIAL SQ SCH ×4 (06:47→21:45)
[2020-12-06 08:24] LABS: BLOOD UREA NITROGEN 78.6 mg/dL (7-18); CALCIUM 8.8 mg/dL (8.5-10.1); CHLORIDE 99 mmol/L (98-107); CO2 32 mmol/L (21-32); CREATININE 4.7 mg/dL (0.55-1.3); GLUCOSE,RANDOM 157 mg/dL (74-106); PHOSPHOROUS 4.7 mg/dL (2.5-4.9); SODIUM 140 mmol/L (136-145)
[2020-12-06 08:25] LABS: ALBUMIN 2.6 g/dl (3.4-5.0); ALK PHOS 75 U/L (45-117); BILIRUBIN,TOTAL 0.3 mg/dL (0.2-1); MAGNESIUM 1.8 mg/dL (1.8-2.4); SGOT/AST 12 U/L (15-37); SGPT/ALT 14 U/L (13-61)
[2020-12-06 08:41] LABS: BASO % 0.4 % (0-2.0); EOS % 1.2 % (0-4.5); HEMATOCRIT 35.1 % (32.4-45.2); HEMOGLOBIN 11.2 GM/dL (10.7-15.3); MCH 28.1 pg (25.7-33.7); MEAN CELL VOLUME 87.9 fl (80-96); MEAN PLT VOLUME 8.3 fl (7.5-11.1); MONO % 12.9 % (3.8-10.2); NEUT % 53.5 % (42.8-82.8); PLATELET COUNT 210 10^3/uL (134-434); RBC 3.99 M/mm3 (3.60-5.2); RDW 17.2 % (11.6-15.6)
[2020-12-06] MEDS ORDERED: SODIUM ZIRCONIUM CYCLOSILICATE (LOKELMA) 5 GM PACKET PO ONE (09:30)
[2020-12-06] MEDS ORDERED: SPIRONOLACTONE 25 MG TABLET PO SCH (10:00)
[2020-12-06] MEDS ORDERED: amLODIPine BESYLATE 2.5 MG TABLET (FP) PO SCH (10:00)
[2020-12-06] MEDS ORDERED: SODIUM ZIRCONIUM CYCLOSILICATE (LOKELMA) 5 GM PACKET PO SCH (10:00)
[2020-12-06] MEDS ORDERED: INSULIN (NOVOLOG) ASPART 100 UNITS/ML 10ML VIAL ONE (10:52)
[2020-12-06] MEDS: PANTOPRAZOLE 40 MG TABLET PO SCH (10:56)
[2020-12-06] MEDS: ASPIRIN COATED 81 MG TABLET.EC PO SCH (10:57)
[2020-12-06] MEDS: CLOPIDOGREL BISULFATE 75 MG TABLET (FP) PO SCH (10:58)
[2020-12-06] MEDS: ACETAMINOPHEN 1000 MG/100 ML VIAL (NON FORMULARY) IVPB PRN ×2 (11:00→18:45)
[2020-12-06 13:10] VITALS: BMI 25.3
[2020-12-06] MEDS ORDERED: SODIUM CHLORIDE 1,000 ML IV SCH (13:15)
[2020-12-06 19:39] LABS: CALCIUM 8.5 mg/dL (8.5-10.1)
[2020-12-06 19:40] LABS: BLOOD UREA NITROGEN 78.6 mg/dL (7-18)
[2020-12-06 19:43] LABS: CREATININE 4.7 mg/dL (0.55-1.3)
[2020-12-06] MEDS: ATORVASTATIN CA 80 MG TABLET (FP) PO SCH (21:46)
[2020-12-07] MEDS: oxyCODONE HCL 5 MG TABLET PO PRN ×3 (00:45→18:38)
[2020-12-07] MEDS: FUROSEMIDE 40 MG TABLET (FP) PO SCH (06:02)
[2020-12-07] MEDS: HEPARIN NA (PORCINE) 5,000 UNITS/ML 1ML VIAL SQ SCH ×3 (06:03→21:52)
[2020-12-07] MEDS: INSULIN SLIDING SCALE (NOVOLOG) 1 VIAL SQ SCH ×4 (06:03→21:52)
[2020-12-07] MEDS: LEVOTHYROXINE NA 100 MCG TABLET (FP) PO SCH (06:03)
[2020-12-07 07:52] LABS: BASO % 0.4 % (0-2.0); EOS % 1.2 % (0-4.5); HEMATOCRIT 34.9 % (32.4-45.2); HEMOGLOBIN 11.1 GM/dL (10.7-15.3); LYMPH % 32.8 % (8-40); MCH 28.1 pg (25.7-33.7); MCHC 31.8 g/dl (32.0-36.0); MEAN CELL VOLUME 88.2 fl (80-96); MEAN PLT VOLUME 8.5 fl (7.5-11.1); MONO % 8.9 % (3.8-10.2); NEUT % 56.7 % (42.8-82.8); PLATELET COUNT 202 10^3/uL (134-434); RBC 3.95 M/mm3 (3.60-5.2); RDW 17.2 % (11.6-15.6); WHITE BLOOD COUNT 4.1 K/mm3 (4.0-10.0)
[2020-12-07 08:12] LABS: CALCIUM 8.7 mg/dL (8.5-10.1)
[2020-12-07 08:13] LABS: ALBUMIN 2.8 g/dl (3.4-5.0); BLOOD UREA NITROGEN 80.9 mg/dL (7-18); MAGNESIUM 1.8 mg/dL (1.8-2.4)
[2020-12-07 08:17] LABS: BILIRUBIN,TOTAL 0.3 mg/dL (0.2-1)
[2020-12-07 08:19] LABS: TOT PROT 6.4 g/dl (6.4-8.2)
[2020-12-07] MEDS: CLOPIDOGREL BISULFATE 75 MG TABLET (FP) PO SCH (09:12)
[2020-12-07] MEDS: PANTOPRAZOLE 40 MG TABLET PO SCH (09:13)
[2020-12-07] MEDS: ASPIRIN COATED 81 MG TABLET.EC PO SCH (09:13)
[2020-12-07 10:57] LABS: PHOSPHOROUS 4.9 mg/dL (2.5-4.9)
[2020-12-07] MEDS: ATORVASTATIN CA 80 MG TABLET (FP) PO SCH (21:52)
[2020-12-08] MEDS: oxyCODONE HCL 5 MG TABLET PO PRN ×3 (02:38→17:35)
[2020-12-08] MEDS: INSULIN SLIDING SCALE (NOVOLOG) 1 VIAL SQ SCH ×4 (06:43→22:25)
[2020-12-08] MEDS: HEPARIN NA (PORCINE) 5,000 UNITS/ML 1ML VIAL SQ SCH ×3 (06:43→22:16)
[2020-12-08] MEDS: LEVOTHYROXINE NA 100 MCG TABLET (FP) PO SCH (06:44)
[2020-12-08 09:26] LABS: BASO % 0.4 % (0-2.0); HEMATOCRIT 36.9 % (32.4-45.2); HEMOGLOBIN 11.8 GM/dL (10.7-15.3); LYMPH % 27.1 % (8-40); MCHC 31.9 g/dl (32.0-36.0); MEAN CELL VOLUME 87.7 fl (80-96); MEAN PLT VOLUME 8.7 fl (7.5-11.1); MONO % 9.5 % (3.8-10.2); PLATELET COUNT 220 10^3/uL (134-434); RDW 17.3 % (11.6-15.6); WHITE BLOOD COUNT 4.7 K/mm3 (4.0-10.0)
[2020-12-08] MEDS: CLOPIDOGREL BISULFATE 75 MG TABLET (FP) PO SCH (09:41)
[2020-12-08] MEDS: PANTOPRAZOLE 40 MG TABLET PO SCH (09:41)
[2020-12-08] MEDS: ASPIRIN COATED 81 MG TABLET.EC PO SCH (09:41)
[2020-12-08 09:57] LABS: MAGNESIUM 1.8 mg/dL (1.8-2.4)
[2020-12-08 10:00] LABS: CREATININE 4.5 mg/dL (0.55-1.3); PHOSPHOROUS 4.1 mg/dL (2.5-4.9)
[2020-12-08 10:01] LABS: BILIRUBIN,TOTAL 0.4 mg/dL (0.2-1)
[2020-12-08 10:05] LABS: BLOOD UREA NITROGEN 77.7 mg/dL (7-18)
[2020-12-08] MEDS: INSULIN (LEVEMIR) 100 UNITS/ML UNITS SQ SCH (22:18)
[2020-12-08] MEDS: ATORVASTATIN CA 80 MG TABLET (FP) PO SCH (22:19)
[2020-12-09] MEDS: LEVOTHYROXINE NA 100 MCG TABLET (FP) PO SCH (06:44)
[2020-12-09] MEDS: HEPARIN NA (PORCINE) 5,000 UNITS/ML 1ML VIAL SQ SCH ×3 (06:44→21:39)
[2020-12-09] MEDS: INSULIN SLIDING SCALE (NOVOLOG) 1 VIAL SQ SCH ×4 (06:50→21:44)
[2020-12-09] MEDS: INSULIN (LEVEMIR) 100 UNITS/ML UNITS SQ SCH ×2 (06:50→21:43)
[2020-12-09 08:19] LABS: BASO % 0.3 % (0-2.0); EOS % 0.7 % (0-4.5); HEMATOCRIT 35.7 % (32.4-45.2); HEMOGLOBIN 11.6 GM/dL (10.7-15.3); LYMPH % 23.6 % (8-40); MCH 28.4 pg (25.7-33.7); MCHC 32.3 g/dl (32.0-36.0); MEAN CELL VOLUME 87.7 fl (80-96); MEAN PLT VOLUME 8.8 fl (7.5-11.1); MONO % 7.8 % (3.8-10.2); NEUT % 67.6 % (42.8-82.8); PLATELET COUNT 231 10^3/uL (134-434); RBC 4.07 M/mm3 (3.60-5.2); RDW 17.2 % (11.6-15.6); WHITE BLOOD COUNT 5.3 K/mm3 (4.0-10.0)
[2020-12-09 08:32] LABS: BLOOD UREA NITROGEN 75.9 mg/dL (7-18); CALCIUM 8.8 mg/dL (8.5-10.1); MAGNESIUM 1.6 mg/dL (1.8-2.4)
[2020-12-09 08:35] LABS: BILIRUBIN,TOTAL 0.4 mg/dL (0.2-1); CREATININE 4.3 mg/dL (0.55-1.3)
[2020-12-09 08:36] LABS: PHOSPHOROUS 3.9 mg/dL (2.5-4.9); TOT PROT 7.1 g/dl (6.4-8.2)
[2020-12-09] MEDS: ASPIRIN COATED 81 MG TABLET.EC PO SCH (09:41)
[2020-12-09] MEDS: CLOPIDOGREL BISULFATE 75 MG TABLET (FP) PO SCH (09:41)
[2020-12-09] MEDS: PANTOPRAZOLE 40 MG TABLET PO SCH (09:42)
[2020-12-09] MEDS ORDERED: ARTIFICIAL TEARS (POLYVINYL ALCOHOL) OPTH DROPS OU PRN (10:39)
[2020-12-09] MEDS ORDERED: INSULIN (NOVOLOG) ASPART 100 UNITS/ML 10ML VIAL ONE ×2 (12:03→20:44)
[2020-12-09] MEDS: oxyCODONE HCL 5 MG TABLET PO PRN (12:08)
[2020-12-09] MEDS: ATORVASTATIN CA 80 MG TABLET (FP) PO SCH (21:39)
[2020-12-10] MEDS: LEVOTHYROXINE NA 100 MCG TABLET (FP) PO SCH (06:28)
[2020-12-10] MEDS: HEPARIN NA (PORCINE) 5,000 UNITS/ML 1ML VIAL SQ SCH ×3 (06:29→21:36)
[2020-12-10] MEDS: INSULIN (LEVEMIR) 100 UNITS/ML UNITS SQ SCH ×2 (06:31→21:37)
[2020-12-10] MEDS: INSULIN SLIDING SCALE (NOVOLOG) 1 VIAL SQ SCH ×4 (06:31→21:39)
[2020-12-10 07:55] LABS: BASO % 0.7 % (0-2.0); EOS % 0.7 % (0-4.5); HEMATOCRIT 35.9 % (32.4-45.2); HEMOGLOBIN 11.3 GM/dL (10.7-15.3); LYMPH % 21.4 % (8-40); MCH 27.6 pg (25.7-33.7); MCHC 31.5 g/dl (32.0-36.0); MEAN CELL VOLUME 87.5 fl (80-96); MEAN PLT VOLUME 8.8 fl (7.5-11.1); MONO % 11.1 % (3.8-10.2); NEUT % 66.1 % (42.8-82.8); PLATELET COUNT 210 10^3/uL (134-434); RDW 17.5 % (11.6-15.6); WHITE BLOOD COUNT 4.9 K/mm3 (4.0-10.0)
[2020-12-10 08:04] LABS: CALCIUM 8.7 mg/dL (8.5-10.1)
[2020-12-10 08:05] LABS: ALBUMIN 2.6 g/dl (3.4-5.0); BLOOD UREA NITROGEN 79.4 mg/dL (7-18); MAGNESIUM 1.7 mg/dL (1.8-2.4)
[2020-12-10 08:08] LABS: BILIRUBIN,TOTAL 0.3 mg/dL (0.2-1); PHOSPHOROUS 3.5 mg/dL (2.5-4.9)
[2020-12-10 08:09] LABS: TOT PROT 6.4 g/dl (6.4-8.2)
[2020-12-10] MEDS ORDERED: PT OWN MED DRAWER 7, Y5N ONE ×2 (09:27→13:37)
[2020-12-10] MEDS: CLOPIDOGREL BISULFATE 75 MG TABLET (FP) PO SCH (09:32)
[2020-12-10] MEDS: PANTOPRAZOLE 40 MG TABLET PO SCH (09:32)
[2020-12-10] MEDS: ASPIRIN COATED 81 MG TABLET.EC PO SCH (09:32)
[2020-12-10] MEDS: oxyCODONE HCL 5 MG TABLET PO PRN (09:37)
[2020-12-10] MEDS ORDERED: INSULIN (NOVOLOG) ASPART 100 UNITS/ML 10ML VIAL ONE (11:34)
[2020-12-10] MEDS: BACITRACIN 15 GM TUBE TOPICAL OINTMENT TP SCH (12:03)
[2020-12-10] MEDS: ARTIFICIAL TEARS (POLYVINYL ALCOHOL) OPTH DROPS OU SCH ×4 (12:03→21:38)
[2020-12-10] MEDS: FUROSEMIDE 40 MG TABLET (FP) PO SCH (13:39)
[2020-12-10] MEDS: ACETAMINOPHEN 325 MG TABLET (FP) PO ONE ×2 (15:22→17:20)
[2020-12-10] MEDS: ATORVASTATIN CA 80 MG TABLET (FP) PO SCH (21:36)
[2020-12-11] MEDS ORDERED: ACETAMINOPHEN 325 MG TABLET (FP) PO ONE (04:58)
[2020-12-11] MEDS: HEPARIN NA (PORCINE) 5,000 UNITS/ML 1ML VIAL SQ SCH ×2 (05:34→13:00)
[2020-12-11] MEDS: FUROSEMIDE 40 MG TABLET (FP) PO SCH ×2 (05:34→13:00)
[2020-12-11] MEDS: INSULIN (LEVEMIR) 100 UNITS/ML UNITS SQ SCH (05:59)
[2020-12-11] MEDS: INSULIN SLIDING SCALE (NOVOLOG) 1 VIAL SQ SCH ×3 (05:59→16:32)
[2020-12-11] MEDS: LEVOTHYROXINE NA 100 MCG TABLET (FP) PO SCH (05:59)
[2020-12-11] MEDS: BACITRACIN 15 GM TUBE TOPICAL OINTMENT TP SCH (09:24)
[2020-12-11] MEDS: ARTIFICIAL TEARS (POLYVINYL ALCOHOL) OPTH DROPS OU SCH ×2 (09:24→13:00)
[2020-12-11] MEDS: PANTOPRAZOLE 40 MG TABLET PO SCH (09:25)
[2020-12-11] MEDS: CLOPIDOGREL BISULFATE 75 MG TABLET (FP) PO SCH (09:25)
[2020-12-11] MEDS: ASPIRIN COATED 81 MG TABLET.EC PO SCH (09:25)
[2020-12-11 15:09] VITALS: BP 143/77; PULSE 88; TEMP 98.5
== END 2020-12-11 18:25 | disposition home health service (06) | DRG 638 ==
LOC: JER 07:03 → JERBED 11:03 → J7W 15:58
PROVIDERS: ADMIT Internal Medicine; ATTEND Internal Medicine
DX: E10.649 Type 1 diabetes mellitus with hypoglycemia without coma (principal); D68.2 Hereditary deficiency of other clotting factors; I50.22 Chronic systolic (congestive) heart failure; I13.2 Hypertensive heart and chronic kidney disease with heart failure and with stage 5 chronic kidney disease, or end stage renal disease; N39.0 Urinary tract infection, site not specified; N18.5 Chronic kidney disease, stage 5; E10.22 Type 1 diabetes mellitus with diabetic chronic kidney disease; G20 Parkinson's disease; S00.83XA Contusion of other part of head, initial encounter; N17.9 Acute kidney failure, unspecified; K21.9 Gastro-esophageal reflux disease without esophagitis; I25.10 Atherosclerotic heart disease of native coronary artery without angina pectoris; Z95.1 Presence of aortocoronary bypass graft; D72.819 Decreased white blood cell count, unspecified; W19.XXXA Unspecified fall, initial encounter; Y93.9 Activity, unspecified; Y92.89 Other specified places as the place of occurrence of the external cause; Y99.9 Unspecified external cause status; E03.9 Hypothyroidism, unspecified
CPT/HCPCS: 36415; 70450-TC; 71045-TC-FY; 72125-TC; 72170-TC-FY; 80048; 80053; 81003; 82550; 82962; 83605; 83735; 84100; 84132; 84484; 85025; 87086; 87804; 93005; 93010; 97116-GP; 97161-GP; 99285-25; C9803; J0131; J1644; U0003; U0005

== ENCOUNTER 2020-12-17 11:20 | Inpatient (IN) | payer OTHER ==
[2020-12-17] MEDS ORDERED: LACTATED RINGERS SOLUTION 1000 ML INFUS.BAG IV ONE ×2 (12:49→13:31)
[2020-12-17] MEDS ORDERED: ONDANSETRON 4 MG/2 ML VIAL IVPUSH ONE (12:49)
[2020-12-17 12:58] LABS: VENOUS O2 SATURATION 30.9 % (70-80); VENOUS PCO2 44.3 mmHg (38-52); VENOUS PH 7.232 (7.310-7.410)
[2020-12-17 13:01] LABS: BASO % 0.7 % (0-2.0); HEMATOCRIT 37.9 % (32.4-45.2); HEMOGLOBIN 11.9 GM/dL (10.7-15.3); LYMPH % 11.1 % (8-40); MCH 28.1 pg (25.7-33.7); MCHC 31.4 g/dl (32.0-36.0); MEAN CELL VOLUME 89.4 fl (80-96); MEAN PLT VOLUME 8.4 fl (7.5-11.1); MONO % 5.8 % (3.8-10.2); NEUT % 82.4 % (42.8-82.8); PLATELET COUNT 349 10^3/uL (134-434); RBC 4.24 M/mm3 (3.60-5.2); RDW 19.1 % (11.6-15.6); WHITE BLOOD COUNT 5.9 K/mm3 (4.0-10.0)
[2020-12-17 13:22] LABS: CHLORIDE 100 mmol/L (98-107); SODIUM 141 mmol/L (136-145)
[2020-12-17 13:26] LABS: CALCIUM 9.9 mg/dL (8.5-10.1)
[2020-12-17 13:27] LABS: ALBUMIN 3.7 g/dl (3.4-5.0); ANION GAP 22 MMOL/L (8-16); CO2 19 mmol/L (21-32); GLUCOSE,RANDOM 493 mg/dL (74-106)
[2020-12-17 13:30] LABS: CREATININE 5.6 mg/dL (0.55-1.3); SGOT/AST 20 U/L (15-37); SGPT/ALT 20 U/L (13-61)
[2020-12-17 13:31] LABS: BILIRUBIN,TOTAL 1.1 mg/dL (0.2-1); TOT PROT 8.1 g/dl (6.4-8.2)
[2020-12-17 13:33] LABS: ALK PHOS 92 U/L (45-117)
[2020-12-17] MEDS ORDERED: ONDANSETRON 4 MG/2 ML VIAL ONE (13:40)
[2020-12-17] MEDS ORDERED: INSULIN REGULAR 100 UNITS in SODIUM CHLORIDE 99 ML IVPB SCH (14:00)
[2020-12-17] MEDS ORDERED: ACETAMINOPHEN 1000 MG/100 ML VIAL IVPB ONE (15:54)
[2020-12-17] MEDS ORDERED: FAMOTIDINE 20 MG/50 ML IVPB 20 MG/50 ML MG IVPB ONE ×2 (15:54→16:00)
[2020-12-17] MEDS ORDERED: ACETAMINOPHEN INJECTION 100 ML IVPB ONE (15:59)
[2020-12-17 16:47] LABS: CALCIUM 8.9 mg/dL (8.5-10.1)
[2020-12-17 16:48] LABS: BLOOD UREA NITROGEN 100.4 mg/dL (7-18); CO2 16 mmol/L (21-32)
[2020-12-17 16:51] LABS: CREATININE 5.2 mg/dL (0.55-1.3)
[2020-12-17 17:03] LABS: ANION GAP 23 MMOL/L (8-16); CHLORIDE 101 mmol/L (98-107); GLUCOSE,RANDOM 431 mg/dL (74-106); SODIUM 141 mmol/L (136-145)
[2020-12-17] MEDS ORDERED: LACTATED RINGERS SOLUTION 1,000 ML/1,000 ML INFUS.BAG IV SCH (21:30)
[2020-12-17] MEDS: CHLORHEXIDINE GLUCONATE 4% CLEANSER FOR DECOLONIZATION TP SCH (23:31)
[2020-12-17] MEDS: HEPARIN NA (PORCINE) 5,000 UNITS/ML 1ML VIAL SQ SCH (23:31)
[2020-12-17 23:47] LABS: CALCIUM 9.7 mg/dL (8.5-10.1)
[2020-12-17 23:48] LABS: BLOOD UREA NITROGEN 102.1 mg/dL (7-18)
[2020-12-17 23:51] LABS: CREATININE 5.5 mg/dL (0.55-1.3)
[2020-12-17] MEDS ORDERED: PROCHLORPERAZINE INJECTION 10 MG/2 ML VIAL IM ONE (23:54)
[2020-12-18] MEDS ORDERED: DEXTROSE 5%-NORMAL SALINE 1,000 ML IV SCH (01:30)
[2020-12-18 04:19] LABS: CHLORIDE 105 mmol/L (98-107); SODIUM 144 mmol/L (136-145)
[2020-12-18 04:20] LABS: ANION GAP 14 MMOL/L (8-16); CALCIUM 9.4 mg/dL (8.5-10.1); CO2 25 mmol/L (21-32)
[2020-12-18 04:23] LABS: GLUCOSE,RANDOM 169 mg/dL (74-106)
[2020-12-18 04:24] LABS: CREATININE 5.3 mg/dL (0.55-1.3)
[2020-12-18 04:38] LABS: BLOOD UREA NITROGEN 107.8 mg/dL (7-18)
[2020-12-18] MEDS: HEPARIN NA (PORCINE) 5,000 UNITS/ML 1ML VIAL SQ SCH ×3 (06:32→21:12)
[2020-12-18] MEDS ORDERED: PT OWN MED DRAWER 7, Y5N ONE (08:16)
[2020-12-18] MEDS ORDERED: DEXTROSE 5%-0.45% SALINE 1,000 ML IV SCH (08:45)
[2020-12-18 09:06] LABS: CHLORIDE 108 mmol/L (98-107); SODIUM 145 mmol/L (136-145)
[2020-12-18 09:11] LABS: GLUCOSE,RANDOM 109 mg/dL (74-106)
[2020-12-18 09:12] LABS: CALCIUM 9.5 mg/dL (8.5-10.1)
[2020-12-18 09:13] LABS: ANION GAP 11 MMOL/L (8-16); CO2 26 mmol/L (21-32); MAGNESIUM 1.9 mg/dL (1.8-2.4)
[2020-12-18] MEDS ORDERED: INSULIN (LEVEMIR) 100 UNITS/ML UNITS SQ ONE (09:14)
[2020-12-18 09:16] LABS: CREATININE 5.1 mg/dL (0.55-1.3)
[2020-12-18] MEDS ORDERED: ONDANSETRON 4 MG/2 ML VIAL IVPUSH ONE (10:03)
[2020-12-18] MEDS: PANTOPRAZOLE SODIUM 40 MG VIAL IVPUSH SCH (10:38)
[2020-12-18] MEDS: ISOSORBIDE MONONITRATE 30 MG TAB.SR.24H (FP) PO SCH (10:38)
[2020-12-18] MEDS: ASPIRIN COATED 81 MG TABLET.EC PO SCH (10:38)
[2020-12-18] MEDS: CLOPIDOGREL BISULFATE 75 MG TABLET (FP) PO SCH (10:38)
[2020-12-18] MEDS: LEVOTHYROXINE NA 100 MCG TABLET (FP) PO SCH (10:55)
[2020-12-18] MEDS ORDERED: SODIUM CHLORIDE 250 ML IV PRN (10:56)
[2020-12-18] MEDS: MUPIROCIN 2% TOPICAL OINTMENT FOR DECOLONIZATION NS SCH ×2 (10:56→22:55)
[2020-12-18] MEDS: FUROSEMIDE 40 MG TABLET (FP) PO SCH (10:57)
[2020-12-18 11:05] LABS: BASO % 0.4 % (0-2.0); HEMATOCRIT 36.4 % (32.4-45.2); HEMOGLOBIN 11.4 GM/dL (10.7-15.3); LYMPH % 12.3 % (8-40); MCHC 31.4 g/dl (32.0-36.0); MEAN CELL VOLUME 89.4 fl (80-96); MEAN PLT VOLUME 8.5 fl (7.5-11.1); NEUT % 75.3 % (42.8-82.8); PLATELET COUNT 268 10^3/uL (134-434); RBC 4.08 M/mm3 (3.60-5.2); RDW 18.7 % (11.6-15.6); WHITE BLOOD COUNT 5.9 K/mm3 (4.0-10.0)
[2020-12-18] MEDS ORDERED: ONDANSETRON 4 MG/2 ML VIAL IVPB PRN (11:15)
[2020-12-18] MEDS ORDERED: NITROGLYCERIN SUBLINGUAL 1/150 0.4 MG TAB SL PRN (11:18)
[2020-12-18] MEDS ORDERED: PATIENT'S OWN MEDICATION (NON-FORMULARY) (Omeprazole [Omeprazole] 20 MG Tablet.Dr) PO SCH (11:30)
[2020-12-18] MEDS: INSULIN SLIDING SCALE (NOVOLOG) 1 VIAL SQ SCH ×3 (12:37→21:12)
[2020-12-18] MEDS: amLODIPine BESYLATE 5 MG TABLET (FP) PO SCH (14:36)
[2020-12-18] MEDS: hydrALAZINE HCL 10 MG TABLET PO SCH ×2 (14:37→21:12)
[2020-12-18] MEDS ORDERED: FUROSEMIDE 40 MG TABLET (FP) PO ONE (16:00)
[2020-12-18] MEDS ORDERED: FUROSEMIDE 100 MG/10 ML INJECTABLE VIAL IVPB ONE (17:00)
[2020-12-18 17:18] LABS: BLOOD UREA NITROGEN 100.5 mg/dL (7-18); CALCIUM 9.3 mg/dL (8.5-10.1)
[2020-12-18] MEDS: CHLORHEXIDINE GLUCONATE 4% CLEANSER FOR DECOLONIZATION TP SCH (21:12)
[2020-12-18] MEDS: ATORVASTATIN CA 80 MG TABLET (FP) PO SCH (21:12)
[2020-12-18 21:36] LABS: EPI CELLS 3 /uL (0-25.1); HYALINE CASTS 0 /uL (0-3.1); PH,URINE 5.5 (5.0-8.0); URINE APPEARANCE CLOUDY; URINE BACTERIA 2364 /uL (0-1359); URINE BILIRUBIN NEGATIVE (NEGATIVE); URINE COLOR YELLOW; URINE GLUCOSE (UA) TRACE (NEGATIVE); URINE KETONE NEGATIVE (NEGATIVE); URINE LEUK ESTERASE 3+ (NEGATIVE); URINE NITRITE POSITIVE (NEGATIVE); URINE PROTEIN 3+ (NEGATIVE); URINE WBC 884 /uL (0-25.8)
[2020-12-18 22:43] LABS: URINE RBC 42 /uL (0-23.9); YEAST MODERATE (NEGATIVE)
[2020-12-19] MEDS: HEPARIN NA (PORCINE) 5,000 UNITS/ML 1ML VIAL SQ SCH ×3 (05:32→21:47)
[2020-12-19] MEDS ORDERED: INSULIN (LEVEMIR) 100 UNITS/ML UNITS SQ ONE ×2 (06:00→10:00)
[2020-12-19] MEDS: INSULIN SLIDING SCALE (NOVOLOG) 1 VIAL SQ SCH ×4 (06:16→21:48)
[2020-12-19] MEDS: FUROSEMIDE 40 MG TABLET (FP) PO SCH ×2 (06:16→18:29)
[2020-12-19 10:25] LABS: BASO % 0.1 % (0-2.0); EOS % 0.3 % (0-4.5); HEMATOCRIT 34.8 % (32.4-45.2); HEMOGLOBIN 11.2 GM/dL (10.7-15.3); LYMPH % 18.2 % (8-40); MCH 27.9 pg (25.7-33.7); MCHC 32.2 g/dl (32.0-36.0); MEAN CELL VOLUME 86.8 fl (80-96); MEAN PLT VOLUME 7.8 fl (7.5-11.1); MONO % 11.6 % (3.8-10.2); NEUT % 69.8 % (42.8-82.8); PLATELET COUNT 276 10^3/uL (134-434); RBC 4.01 M/mm3 (3.60-5.2); RDW 18.6 % (11.6-15.6); WHITE BLOOD COUNT 4.6 K/mm3 (4.0-10.0)
[2020-12-19 10:38] LABS: CHLORIDE 108 mmol/L (98-107); SODIUM 145 mmol/L (136-145)
[2020-12-19 10:41] LABS: ANION GAP 11 MMOL/L (8-16); CO2 26 mmol/L (21-32); GLUCOSE,RANDOM 174 mg/dL (74-106); MAGNESIUM 1.9 mg/dL (1.8-2.4)
[2020-12-19 10:43] LABS: CREATININE 5.1 mg/dL (0.55-1.3); SGOT/AST 51 U/L (15-37); SGPT/ALT 39 U/L (13-61)
[2020-12-19 10:45] LABS: PHOSPHOROUS 4.8 mg/dL (2.5-4.9)
[2020-12-19 10:46] LABS: TOT PROT 6.5 g/dl (6.4-8.2)
[2020-12-19 10:47] LABS: ALK PHOS 79 U/L (45-117)
[2020-12-19 10:50] LABS: BILIRUBIN,TOTAL 0.7 mg/dL (0.2-1)
[2020-12-19 11:15] LABS: ALBUMIN 2.8 g/dl (3.4-5.0); BLOOD UREA NITROGEN 106.1 mg/dL (7-18)
[2020-12-19] MEDS: MUPIROCIN 2% TOPICAL OINTMENT FOR DECOLONIZATION NS SCH ×2 (11:16→21:47)
[2020-12-19] MEDS: ASPIRIN COATED 81 MG TABLET.EC PO SCH (11:18)
[2020-12-19] MEDS: LEVOTHYROXINE NA 100 MCG TABLET (FP) PO SCH (11:18)
[2020-12-19] MEDS: PANTOPRAZOLE SODIUM 40 MG VIAL IVPUSH SCH (11:19)
[2020-12-19] MEDS: CLOPIDOGREL BISULFATE 75 MG TABLET (FP) PO SCH (11:26)
[2020-12-19] MEDS: hydrALAZINE HCL 10 MG TABLET PO SCH ×2 (16:20→21:47)
[2020-12-19] MEDS: ISOSORBIDE MONONITRATE 30 MG TAB.SR.24H (FP) PO SCH (16:20)
[2020-12-19] MEDS: amLODIPine BESYLATE 5 MG TABLET (FP) PO SCH (16:21)
[2020-12-19] MEDS: TRIPLE LUMEN FLUSH 4 ML ML IVPUSH SCH ×2 (16:34→21:48)
[2020-12-19] MEDS: ACETAMINOPHEN 1000 MG/100 ML VIAL IVPB PRN (20:20)
[2020-12-19] MEDS: CHLORHEXIDINE GLUCONATE 4% CLEANSER FOR DECOLONIZATION TP SCH (21:47)
[2020-12-19] MEDS: ATORVASTATIN CA 80 MG TABLET (FP) PO SCH (21:48)
[2020-12-19] MEDS ORDERED: SODIUM CHLORIDE 250 ML IV PRN (23:26)
[2020-12-19] MEDS ORDERED: ONDANSETRON 4 MG/2 ML VIAL IVPB PRN (23:26)
[2020-12-19] MEDS ORDERED: NITROGLYCERIN SUBLINGUAL 1/150 0.4 MG TAB SL PRN (23:26)
[2020-12-19] MEDS ORDERED: PROCHLORPERAZINE INJECTION 10 MG/2 ML VIAL IM ONE (23:26)
[2020-12-20] MEDS ORDERED: HEPARIN NA (PORCINE) 5,000 UNITS/ML 1ML VIAL SQ SCH (06:00)
[2020-12-20] MEDS: INSULIN SLIDING SCALE (NOVOLOG) 1 VIAL SQ SCH ×4 (06:11→21:35)
[2020-12-20] MEDS: FUROSEMIDE 40 MG TABLET (FP) PO SCH ×2 (06:12→17:28)
[2020-12-20] MEDS: LEVOTHYROXINE NA 100 MCG TABLET (FP) PO SCH (06:12)
[2020-12-20] MEDS: ISOSORBIDE MONONITRATE 30 MG TAB.SR.24H (FP) PO SCH (09:45)
[2020-12-20] MEDS: hydrALAZINE HCL 10 MG TABLET PO SCH ×2 (09:46→21:34)
[2020-12-20] MEDS: PANTOPRAZOLE 40 MG TABLET PO SCH ×3 (09:46→13:56)
[2020-12-20] MEDS: amLODIPine BESYLATE 5 MG TABLET (FP) PO SCH (09:46)
[2020-12-20] MEDS: CLOPIDOGREL BISULFATE 75 MG TABLET (FP) PO SCH (09:46)
[2020-12-20] MEDS: ASPIRIN COATED 81 MG TABLET.EC PO SCH (09:46)
[2020-12-20] MEDS: INSULIN (LEVEMIR) 100 UNITS/ML UNITS SQ SCH ×2 (09:47→21:34)
[2020-12-20] MEDS: HEPARIN NA (PORCINE) 5,000 UNITS/ML 1ML VIAL SQ SCH ×2 (09:47→21:33)
[2020-12-20] MEDS ORDERED: INSULIN (LEVEMIR) 100 UNITS/ML UNITS SQ SCH (10:00)
[2020-12-20] MEDS ORDERED: PANTOPRAZOLE SODIUM 40 MG VIAL IVPUSH SCH (10:00)
[2020-12-20] MEDS: NYSTATIN 500,000 UNITS/5 ML SUSPENSION PO SCH ×2 (11:42→17:28)
[2020-12-20] MEDS: TRIPLE LUMEN FLUSH 4 ML ML IVPUSH SCH ×2 (11:43→21:51)
[2020-12-20] MEDS: ACETAMINOPHEN 1000 MG/100 ML VIAL IVPB PRN (13:56)
[2020-12-20] MEDS ORDERED: SODIUM CHLORIDE 250 ML IV PRN (14:19)
[2020-12-20] MEDS ORDERED: BENZOCAINE/MENTHOL 1 EACH LOZENGE MM PRN (15:50)
[2020-12-20] MEDS ORDERED: ACETAMINOPHEN 325 MG TABLET (FP) PO PRN (15:51)
[2020-12-20] MEDS: LIDOCAINE VISCOUS 2% ORAL/TOP 15 ML UNIT-DOSE CUP MM PRN (20:57)
[2020-12-20] MEDS: ATORVASTATIN CA 80 MG TABLET (FP) PO SCH (21:33)
[2020-12-21] MEDS: NYSTATIN 500,000 UNITS/5 ML SUSPENSION PO SCH ×5 (00:37→23:54)
[2020-12-21] MEDS ORDERED: PT OWN MED DRAWER 7, Y5N ONE ×2 (06:30→13:26)
[2020-12-21] MEDS: INSULIN SLIDING SCALE (NOVOLOG) 1 VIAL SQ SCH ×4 (06:40→21:25)
[2020-12-21] MEDS: LEVOTHYROXINE NA 100 MCG TABLET (FP) PO SCH (06:40)
[2020-12-21] MEDS: FUROSEMIDE 40 MG TABLET (FP) PO SCH ×2 (06:40→18:04)
[2020-12-21] MEDS: INSULIN (LEVEMIR) 100 UNITS/ML UNITS SQ SCH ×2 (06:43→21:24)
[2020-12-21] MEDS: MUPIROCIN 2% TOPICAL OINTMENT FOR DECOLONIZATION NS SCH (09:32)
[2020-12-21 10:46] LABS: INR 1.7 (0.83-1.09)
[2020-12-21 10:48] LABS: ACTIVATED PTT 28.8 SECONDS (25.2-36.5)
[2020-12-21 10:58] LABS: ALBUMIN 2.6 g/dl (3.4-5.0); CALCIUM 7.9 mg/dL (8.5-10.1)
[2020-12-21 11:03] LABS: BILIRUBIN,TOTAL 0.6 mg/dL (0.2-1); TOT PROT 6.1 g/dl (6.4-8.2)
[2020-12-21 11:09] LABS: BLOOD UREA NITROGEN 66.8 mg/dL (7-18)
[2020-12-21] MEDS: PANTOPRAZOLE 40 MG TABLET PO SCH (13:29)
[2020-12-21] MEDS: amLODIPine BESYLATE 5 MG TABLET (FP) PO SCH (13:29)
[2020-12-21] MEDS: ASPIRIN COATED 81 MG TABLET.EC PO SCH (13:30)
[2020-12-21] MEDS: ISOSORBIDE MONONITRATE 30 MG TAB.SR.24H (FP) PO SCH (13:30)
[2020-12-21] MEDS: CLOPIDOGREL BISULFATE 75 MG TABLET (FP) PO SCH (13:30)
[2020-12-21] MEDS: hydrALAZINE HCL 10 MG TABLET PO SCH ×2 (13:31→21:24)
[2020-12-21] MEDS: HEPARIN NA (PORCINE) 5,000 UNITS/ML 1ML VIAL SQ SCH ×2 (14:50→21:24)
[2020-12-21] MEDS: TRIPLE LUMEN FLUSH 4 ML ML IVPUSH SCH ×2 (16:50→21:25)
[2020-12-21] MEDS: ATORVASTATIN CA 80 MG TABLET (FP) PO SCH (21:24)
[2020-12-22] MEDS: FUROSEMIDE 40 MG TABLET (FP) PO SCH ×2 (06:29→19:01)
[2020-12-22] MEDS: LEVOTHYROXINE NA 100 MCG TABLET (FP) PO SCH (06:29)
[2020-12-22] MEDS: NYSTATIN 500,000 UNITS/5 ML SUSPENSION PO SCH ×3 (06:29→19:02)
[2020-12-22] MEDS: INSULIN (LEVEMIR) 100 UNITS/ML UNITS SQ SCH (07:15)
[2020-12-22] MEDS: INSULIN SLIDING SCALE (NOVOLOG) 1 VIAL SQ SCH ×4 (07:16→21:21)
[2020-12-22] MEDS ORDERED: PT OWN MED DRAWER 7, Y5N ONE (10:54)
[2020-12-22] MEDS: hydrALAZINE HCL 10 MG TABLET PO SCH ×2 (11:11→21:19)
[2020-12-22] MEDS: ISOSORBIDE MONONITRATE 30 MG TAB.SR.24H (FP) PO SCH (11:12)
[2020-12-22] MEDS: PANTOPRAZOLE 40 MG TABLET PO SCH (11:12)
[2020-12-22] MEDS: amLODIPine BESYLATE 5 MG TABLET (FP) PO SCH (11:12)
[2020-12-22] MEDS: HEPARIN NA (PORCINE) 5,000 UNITS/ML 1ML VIAL SQ SCH ×2 (11:13→21:19)
[2020-12-22] MEDS: TRIPLE LUMEN FLUSH 4 ML ML IVPUSH SCH ×2 (11:18→21:21)
[2020-12-22 12:12] LABS: HEMATOCRIT 37.8 % (32.4-45.2); HEMOGLOBIN 12.3 GM/dL (10.7-15.3); MCH 28.3 pg (25.7-33.7); MCHC 32.4 g/dl (32.0-36.0); MEAN CELL VOLUME 87.2 fl (80-96); PLATELET COUNT 211 10^3/uL (134-434); RBC 4.34 M/mm3 (3.60-5.2); RDW 19.3 % (11.6-15.6); WHITE BLOOD COUNT 4.5 K/mm3 (4.0-10.0)
[2020-12-22 12:32] LABS: ALBUMIN 2.6 g/dl (3.4-5.0); CALCIUM 8.4 mg/dL (8.5-10.1)
[2020-12-22 12:33] LABS: MAGNESIUM 1.6 mg/dL (1.8-2.4)
[2020-12-22 12:36] LABS: CREATININE 3.1 mg/dL (0.55-1.3); PHOSPHOROUS 2.2 mg/dL (2.5-4.9)
[2020-12-22 12:37] LABS: BILIRUBIN,TOTAL 0.6 mg/dL (0.2-1); TOT PROT 6.3 g/dl (6.4-8.2)
[2020-12-22] MEDS ORDERED: LINEZOLID 600 MG PREMIX BAG 600 MG in PREMIX 300 IVPB SCH (14:30)
[2020-12-22] MEDS ORDERED: MEROPENEM 1 GM in DEXTROSE 5%-WATER 100 ML IVPB ONE (15:00)
[2020-12-22] MEDS ORDERED: LINEZOLID 600 MG PREMIX BAG 600 MG/300 ML BAG IVPB SCH (15:15)
[2020-12-22 17:06] VITALS: BMI 26.4
[2020-12-22] MEDS: NAPH,MB-DB/K PH,MBDB POWDER PACKET PO SCH (21:18)
[2020-12-22] MEDS: ATORVASTATIN CA 80 MG TABLET (FP) PO SCH (21:19)
[2020-12-22] MEDS ORDERED: INSULIN (LEVEMIR) 100 UNITS/ML UNITS SQ SCH (22:00)
[2020-12-23] MEDS: NYSTATIN 500,000 UNITS/5 ML SUSPENSION PO SCH ×4 (00:14→17:20)
[2020-12-23] MEDS: LEVOTHYROXINE NA 100 MCG TABLET (FP) PO SCH (06:02)
[2020-12-23] MEDS: FUROSEMIDE 40 MG TABLET (FP) PO SCH ×2 (06:02→17:20)
[2020-12-23] MEDS: INSULIN SLIDING SCALE (NOVOLOG) 1 VIAL SQ SCH ×4 (06:03→21:11)
[2020-12-23] MEDS: INSULIN (LEVEMIR) 100 UNITS/ML UNITS SQ SCH (06:03)
[2020-12-23] MEDS ORDERED: PT OWN MED DRAWER 7, Y5N ONE ×2 (07:44→14:02)
[2020-12-23] MEDS: LIDOCAINE VISCOUS 2% ORAL/TOP 15 ML UNIT-DOSE CUP MM PRN (07:45)
[2020-12-23 08:25] LABS: HEMATOCRIT 36.7 % (32.4-45.2); HEMOGLOBIN 11.9 GM/dL (10.7-15.3); MCH 28.1 pg (25.7-33.7); MCHC 32.3 g/dl (32.0-36.0); MEAN CELL VOLUME 86.9 fl (80-96); MEAN PLT VOLUME 7.9 fl (7.5-11.1); PLATELET COUNT 205 10^3/uL (134-434); RBC 4.22 M/mm3 (3.60-5.2); RDW 19.7 % (11.6-15.6); WHITE BLOOD COUNT 4.2 K/mm3 (4.0-10.0)
[2020-12-23] MEDS ORDERED: SODIUM CHLORIDE 250 ML IV PRN (09:05)
[2020-12-23 09:11] LABS: ALBUMIN 2.6 g/dl (3.4-5.0); CALCIUM 8.8 mg/dL (8.5-10.1); MAGNESIUM 1.6 mg/dL (1.8-2.4)
[2020-12-23 09:14] LABS: CREATININE 3.4 mg/dL (0.55-1.3); PHOSPHOROUS 2.5 mg/dL (2.5-4.9)
[2020-12-23 09:15] LABS: BILIRUBIN,TOTAL 0.7 mg/dL (0.2-1); TOT PROT 6.2 g/dl (6.4-8.2)
[2020-12-23] MEDS ORDERED: MAGNESIUM SULF 50% (8.12 MEQ/2 ML-1 GM VIAL) IVPB ONE (09:34)
[2020-12-23] MEDS: hydrALAZINE HCL 10 MG TABLET PO SCH ×3 (09:45→21:11)
[2020-12-23] MEDS: HEPARIN NA (PORCINE) 5,000 UNITS/ML 1ML VIAL SQ SCH ×2 (09:45→21:12)
[2020-12-23] MEDS: amLODIPine BESYLATE 5 MG TABLET (FP) PO SCH (09:46)
[2020-12-23] MEDS: ISOSORBIDE MONONITRATE 30 MG TAB.SR.24H (FP) PO SCH ×2 (09:46→13:36)
[2020-12-23] MEDS: NAPH,MB-DB/K PH,MBDB POWDER PACKET PO SCH (09:46)
[2020-12-23] MEDS: PANTOPRAZOLE 40 MG TABLET PO SCH ×2 (09:47→13:36)
[2020-12-23] MEDS: PHYTONADIONE 10 MG/1 ML AMP SQ SCH (14:10)
[2020-12-23] MEDS: TRIPLE LUMEN FLUSH 4 ML ML IVPUSH SCH ×2 (14:10→21:17)
[2020-12-23] MEDS ORDERED: MAGNESIUM OXIDE 400 MG TABLET (FP) PO ONE (14:16)
[2020-12-23] MEDS: ATORVASTATIN CA 80 MG TABLET (FP) PO SCH (21:11)
[2020-12-23] MEDS ORDERED: INSULIN (LEVEMIR) 100 UNITS/ML UNITS SQ SCH (22:00)
[2020-12-24] MEDS: NYSTATIN 500,000 UNITS/5 ML SUSPENSION PO SCH ×4 (00:17→18:36)
[2020-12-24] MEDS: INSULIN SLIDING SCALE (NOVOLOG) 1 VIAL SQ SCH ×4 (06:03→21:59)
[2020-12-24] MEDS: LEVOTHYROXINE NA 100 MCG TABLET (FP) PO SCH (06:03)
[2020-12-24] MEDS: FUROSEMIDE 40 MG TABLET (FP) PO SCH ×2 (06:03→18:36)
[2020-12-24] MEDS: INSULIN (LEVEMIR) 100 UNITS/ML UNITS SQ SCH ×2 (06:04→21:59)
[2020-12-24] MEDS ORDERED: INSULIN (LEVEMIR) 100 UNITS/ML UNITS SQ SCH ×2 (06:53→22:00)
[2020-12-24 08:45] LABS: HEMOGLOBIN 11.2 GM/dL (10.7-15.3); MCHC 32.1 g/dl (32.0-36.0); MEAN CELL VOLUME 87.4 fl (80-96); MEAN PLT VOLUME 8.4 fl (7.5-11.1); PLATELET COUNT 199 10^3/uL (134-434); RBC 4.01 M/mm3 (3.60-5.2); RDW 19.7 % (11.6-15.6); WHITE BLOOD COUNT 3.9 K/mm3 (4.0-10.0)
[2020-12-24 09:04] LABS: CALCIUM 8.5 mg/dL (8.5-10.1)
[2020-12-24 09:05] LABS: ALBUMIN 2.5 g/dl (3.4-5.0); BLOOD UREA NITROGEN 18.4 mg/dL (7-18); MAGNESIUM 1.6 mg/dL (1.8-2.4)
[2020-12-24 09:08] LABS: CREATININE 2.6 mg/dL (0.55-1.3)
[2020-12-24 09:09] LABS: BILIRUBIN,TOTAL 0.6 mg/dL (0.2-1); TOT PROT 6.2 g/dl (6.4-8.2)
[2020-12-24 09:11] LABS: PHOSPHOROUS 2.1 mg/dL (2.5-4.9)
[2020-12-24] MEDS ORDERED: PT OWN MED DRAWER 7, Y5N ONE (10:21)
[2020-12-24] MEDS: hydrALAZINE HCL 10 MG TABLET PO SCH ×2 (10:23→21:58)
[2020-12-24] MEDS: PANTOPRAZOLE 40 MG TABLET PO SCH (10:23)
[2020-12-24] MEDS: amLODIPine BESYLATE 5 MG TABLET (FP) PO SCH (10:23)
[2020-12-24] MEDS: ISOSORBIDE MONONITRATE 30 MG TAB.SR.24H (FP) PO SCH (10:23)
[2020-12-24] MEDS ORDERED: PHYTONADIONE 10 MG/1 ML AMP SQ SCH (10:30)
[2020-12-24] MEDS: HEPARIN NA (PORCINE) 5,000 UNITS/ML 1ML VIAL SQ SCH ×2 (11:05→21:58)
[2020-12-24] MEDS: TRIPLE LUMEN FLUSH 4 ML ML IVPUSH SCH (11:06)
[2020-12-24] MEDS ORDERED: MAGNESIUM SULF 50% (8.12 MEQ/2 ML-1 GM VIAL) IVPB ONE (13:03)
[2020-12-24] MEDS ORDERED: SODIUM PHOSPHATE - 15 MM in SODIUM CHLORIDE 250 ML IVPB ONE (13:03)
[2020-12-24] MEDS ORDERED: HEPARIN NA (PORCINE) 5,000 UNITS/ML 1ML VIAL ONE (16:17)
[2020-12-24] MEDS ORDERED: LIDOCAINE HCL 1%, 10 MG/ML (20ML VIAL) ONE (16:17)
[2020-12-24] MEDS ORDERED: SODIUM CHLORIDE 250 ML IV PRN ×2 (18:31→21:22)
[2020-12-24] MEDS ORDERED: MIDAZOLAM HCL 2 MG/2 ML SINGLE DOSE VIAL ONE (18:38)
[2020-12-24] MEDS ORDERED: ceFAZolin SODIUM 1 GM VIAL IVPB ONE (19:17)
[2020-12-24] MEDS ORDERED: LIDOCAINE HCL 1%, 10 MG/ML (20ML VIAL) INF ONE (19:23)
[2020-12-24] MEDS: PHYTONADIONE 10 MG/1 ML AMP SQ SCH (19:56)
[2020-12-24] MEDS ORDERED: ONDANSETRON 4 MG/2 ML VIAL IVPB PRN (21:22)
[2020-12-24] MEDS ORDERED: NITROGLYCERIN SUBLINGUAL 1/150 0.4 MG TAB SL PRN (21:22)
[2020-12-24] MEDS ORDERED: BENZOCAINE/MENTHOL 1 EACH LOZENGE MM PRN (21:22)
[2020-12-24] MEDS ORDERED: ACETAMINOPHEN 325 MG TABLET (FP) PO PRN (21:22)
[2020-12-24] MEDS: ATORVASTATIN CA 80 MG TABLET (FP) PO SCH (21:58)
[2020-12-25] MEDS: NYSTATIN 500,000 UNITS/5 ML SUSPENSION PO SCH ×4 (00:10→17:07)
[2020-12-25] MEDS: FUROSEMIDE 40 MG TABLET (FP) PO SCH ×2 (06:07→17:07)
[2020-12-25] MEDS: LEVOTHYROXINE NA 100 MCG TABLET (FP) PO SCH (06:07)
[2020-12-25] MEDS: INSULIN SLIDING SCALE (NOVOLOG) 1 VIAL SQ SCH ×4 (06:07→22:42)
[2020-12-25] MEDS: INSULIN (LEVEMIR) 100 UNITS/ML UNITS SQ SCH ×2 (06:08→22:41)
[2020-12-25] MEDS ORDERED: PT OWN MED DRAWER 7, Y5N ONE ×2 (09:25→14:28)
[2020-12-25] MEDS: PANTOPRAZOLE 40 MG TABLET PO SCH (09:42)
[2020-12-25] MEDS: ISOSORBIDE MONONITRATE 30 MG TAB.SR.24H (FP) PO SCH (09:42)
[2020-12-25] MEDS: HEPARIN NA (PORCINE) 5,000 UNITS/ML 1ML VIAL SQ SCH ×2 (09:42→22:41)
[2020-12-25 10:59] LABS: HEMATOCRIT 34.8 % (32.4-45.2); HEMOGLOBIN 11.1 GM/dL (10.7-15.3); MCHC 31.9 g/dl (32.0-36.0); MEAN CELL VOLUME 87.8 fl (80-96); MEAN PLT VOLUME 8.6 fl (7.5-11.1); PLATELET COUNT 214 10^3/uL (134-434); RBC 3.96 M/mm3 (3.60-5.2); RDW 19.8 % (11.6-15.6); WHITE BLOOD COUNT 4.6 K/mm3 (4.0-10.0)
[2020-12-25 11:06] LABS: INR 1.56 (0.83-1.09); PROTHROMBIN TIME (PATIENT) 18.3 SEC (9.7-13.0)
[2020-12-25 11:21] LABS: CALCIUM 8.4 mg/dL (8.5-10.1)
[2020-12-25 11:22] LABS: BLOOD UREA NITROGEN 23.8 mg/dL (7-18); MAGNESIUM 1.9 mg/dL (1.8-2.4)
[2020-12-25 11:25] LABS: CREATININE 3.2 mg/dL (0.55-1.3); PHOSPHOROUS 2.4 mg/dL (2.5-4.9)
[2020-12-25] MEDS: PHYTONADIONE 10 MG/1 ML AMP SQ SCH (14:12)
[2020-12-25] MEDS: SPIRONOLACTONE 25 MG TABLET PO SCH (14:12)
[2020-12-25] MEDS: hydrALAZINE HCL 10 MG TABLET PO SCH ×2 (14:12→22:41)
[2020-12-25] MEDS: amLODIPine BESYLATE 2.5 MG TABLET (FP) PO SCH (14:12)
[2020-12-25] MEDS: LIDOCAINE VISCOUS 2% ORAL/TOP 15 ML UNIT-DOSE CUP MM PRN (14:39)
[2020-12-25] MEDS ORDERED: POTASSIUM CHLORIDE ORAL LIQUID 20 MEQ/15 ML PO ONE (16:14)
[2020-12-25] MEDS: ATORVASTATIN CA 80 MG TABLET (FP) PO SCH (22:42)
[2020-12-26] MEDS: NYSTATIN 500,000 UNITS/5 ML SUSPENSION PO SCH ×4 (00:36→17:25)
[2020-12-26] MEDS: INSULIN SLIDING SCALE (NOVOLOG) 1 VIAL SQ SCH ×4 (06:37→22:02)
[2020-12-26] MEDS: LEVOTHYROXINE NA 100 MCG TABLET (FP) PO SCH (06:37)
[2020-12-26] MEDS: FUROSEMIDE 40 MG TABLET (FP) PO SCH ×2 (06:38→17:25)
[2020-12-26] MEDS: INSULIN (LEVEMIR) 100 UNITS/ML UNITS SQ SCH ×2 (06:40→21:58)
[2020-12-26] MEDS ORDERED: PT OWN MED DRAWER 7, Y5N ONE ×2 (08:21→10:29)
[2020-12-26] MEDS: LIDOCAINE VISCOUS 2% ORAL/TOP 15 ML UNIT-DOSE CUP MM PRN (08:22)
[2020-12-26 09:28] LABS: HEMATOCRIT 34.8 % (32.4-45.2); HEMOGLOBIN 11.1 GM/dL (10.7-15.3); MCH 27.8 pg (25.7-33.7); MCHC 31.9 g/dl (32.0-36.0); MEAN CELL VOLUME 87.4 fl (80-96); MEAN PLT VOLUME 8.6 fl (7.5-11.1); PLATELET COUNT 203 10^3/uL (134-434); RBC 3.98 M/mm3 (3.60-5.2); RDW 19.4 % (11.6-15.6); WHITE BLOOD COUNT 5.2 K/mm3 (4.0-10.0)
[2020-12-26] MEDS: ISOSORBIDE MONONITRATE 30 MG TAB.SR.24H (FP) PO SCH (10:31)
[2020-12-26] MEDS: hydrALAZINE HCL 10 MG TABLET PO SCH ×2 (10:32→21:58)
[2020-12-26] MEDS: PANTOPRAZOLE 40 MG TABLET PO SCH (10:32)
[2020-12-26] MEDS: ASPIRIN 81 MG CHEWABLE TABLETS PO SCH (10:32)
[2020-12-26] MEDS: SPIRONOLACTONE 25 MG TABLET PO SCH (10:32)
[2020-12-26] MEDS: HEPARIN NA (PORCINE) 5,000 UNITS/ML 1ML VIAL SQ SCH ×2 (10:33→21:58)
[2020-12-26] MEDS: amLODIPine BESYLATE 2.5 MG TABLET (FP) PO SCH (10:33)
[2020-12-26] MEDS: PHYTONADIONE 10 MG/1 ML AMP SQ SCH (10:33)
[2020-12-26 11:17] LABS: BLOOD UREA NITROGEN 12.9 mg/dL (7-18); CALCIUM 8.6 mg/dL (8.5-10.1)
[2020-12-26 11:18] LABS: MAGNESIUM 1.5 mg/dL (1.8-2.4)
[2020-12-26 11:21] LABS: CREATININE 2.7 mg/dL (0.55-1.3)
[2020-12-26] MEDS ORDERED: MAGNESIUM SULF 50% (8.12 MEQ/2 ML-1 GM VIAL) IVPB ONE (15:31)
[2020-12-26] MEDS ORDERED: NAPH,MB-DB/K PH,MBDB POWDER PACKET PO ONE (15:33)
[2020-12-26] MEDS ORDERED: MAGNESIUM OXIDE 400 MG TABLET (FP) PO ONE (15:49)
[2020-12-26] MEDS: ATORVASTATIN CA 80 MG TABLET (FP) PO SCH (21:58)
[2020-12-27] MEDS: NYSTATIN 500,000 UNITS/5 ML SUSPENSION PO SCH ×4 (00:23→17:11)
[2020-12-27] MEDS: LEVOTHYROXINE NA 100 MCG TABLET (FP) PO SCH (06:51)
[2020-12-27] MEDS: FUROSEMIDE 40 MG TABLET (FP) PO SCH ×2 (06:51→17:11)
[2020-12-27] MEDS: INSULIN SLIDING SCALE (NOVOLOG) 1 VIAL SQ SCH ×4 (06:52→21:31)
[2020-12-27] MEDS: INSULIN (LEVEMIR) 100 UNITS/ML UNITS SQ SCH ×2 (06:52→21:23)
[2020-12-27] MEDS: ASPIRIN 81 MG CHEWABLE TABLETS PO SCH (10:47)
[2020-12-27] MEDS: SPIRONOLACTONE 25 MG TABLET PO SCH (10:47)
[2020-12-27] MEDS: ISOSORBIDE MONONITRATE 30 MG TAB.SR.24H (FP) PO SCH (10:47)
[2020-12-27] MEDS: hydrALAZINE HCL 10 MG TABLET PO SCH ×2 (10:47→21:22)
[2020-12-27] MEDS: HEPARIN NA (PORCINE) 5,000 UNITS/ML 1ML VIAL SQ SCH ×2 (10:48→21:21)
[2020-12-27] MEDS: PANTOPRAZOLE 40 MG TABLET PO SCH (10:48)
[2020-12-27] MEDS: amLODIPine BESYLATE 2.5 MG TABLET (FP) PO SCH (10:48)
[2020-12-27 12:52] LABS: HEMATOCRIT 32.6 % (32.4-45.2); HEMOGLOBIN 10.6 GM/dL (10.7-15.3); MCH 28.7 pg (25.7-33.7); MCHC 32.7 g/dl (32.0-36.0); MEAN CELL VOLUME 87.7 fl (80-96); MEAN PLT VOLUME 8.9 fl (7.5-11.1); PLATELET COUNT 203 10^3/uL (134-434); RBC 3.71 M/mm3 (3.60-5.2); RDW 19.6 % (11.6-15.6); WHITE BLOOD COUNT 6.7 K/mm3 (4.0-10.0)
[2020-12-27 13:17] LABS: BLOOD UREA NITROGEN 22.2 mg/dL (7-18); CALCIUM 8.7 mg/dL (8.5-10.1)
[2020-12-27 13:21] LABS: CREATININE 3.2 mg/dL (0.55-1.3)
[2020-12-27] MEDS ORDERED: SODIUM CHLORIDE 250 ML IV PRN (14:42)
[2020-12-27] MEDS: ATORVASTATIN CA 80 MG TABLET (FP) PO SCH (21:21)
[2020-12-28] MEDS: NYSTATIN 500,000 UNITS/5 ML SUSPENSION PO SCH ×4 (00:10→17:13)
[2020-12-28] MEDS: LEVOTHYROXINE NA 100 MCG TABLET (FP) PO SCH (06:32)
[2020-12-28] MEDS: FUROSEMIDE 40 MG TABLET (FP) PO SCH ×2 (06:32→17:13)
[2020-12-28] MEDS: INSULIN SLIDING SCALE (NOVOLOG) 1 VIAL SQ SCH ×4 (06:33→21:34)
[2020-12-28] MEDS: INSULIN (LEVEMIR) 100 UNITS/ML UNITS SQ SCH ×2 (06:33→21:30)
[2020-12-28 08:59] LABS: HEMATOCRIT 31.2 % (32.4-45.2); HEMOGLOBIN 10.1 GM/dL (10.7-15.3); MCHC 32.2 g/dl (32.0-36.0); MEAN PLT VOLUME 8.6 fl (7.5-11.1); PLATELET COUNT 186 10^3/uL (134-434); RBC 3.59 M/mm3 (3.60-5.2); RDW 19.9 % (11.6-15.6); WHITE BLOOD COUNT 5.1 K/mm3 (4.0-10.0)
[2020-12-28 09:07] LABS: CALCIUM 9.2 mg/dL (8.5-10.1)
[2020-12-28 09:08] LABS: BLOOD UREA NITROGEN 29.9 mg/dL (7-18); MAGNESIUM 1.7 mg/dL (1.8-2.4)
[2020-12-28 09:11] LABS: CREATININE 3.6 mg/dL (0.55-1.3); PHOSPHOROUS 2.5 mg/dL (2.5-4.9)
[2020-12-28] MEDS: hydrALAZINE HCL 10 MG TABLET PO SCH ×3 (09:46→21:26)
[2020-12-28] MEDS: SPIRONOLACTONE 25 MG TABLET PO SCH ×2 (09:46→11:58)
[2020-12-28] MEDS: ASPIRIN 81 MG CHEWABLE TABLETS PO SCH ×2 (09:46→11:59)
[2020-12-28] MEDS: PANTOPRAZOLE 40 MG TABLET PO SCH ×2 (09:47→11:59)
[2020-12-28] MEDS: amLODIPine BESYLATE 2.5 MG TABLET (FP) PO SCH ×2 (09:47→11:59)
[2020-12-28] MEDS: ISOSORBIDE MONONITRATE 30 MG TAB.SR.24H (FP) PO SCH ×2 (09:47→11:59)
[2020-12-28] MEDS ORDERED: MAGNESIUM 2GM/50ML STERILE WATER IVPB IVPB ONE (10:45)
[2020-12-28] MEDS: HEPARIN NA (PORCINE) 5,000 UNITS/ML 1ML VIAL SQ SCH ×3 (11:11→21:26)
[2020-12-28] MEDS ORDERED: MAGNESIUM OXIDE 400 MG TABLET (FP) PO ONE (13:00)
[2020-12-28] MEDS: ATORVASTATIN CA 80 MG TABLET (FP) PO SCH (21:26)
[2020-12-29] MEDS: NYSTATIN 500,000 UNITS/5 ML SUSPENSION PO SCH ×4 (01:00→17:17)
[2020-12-29] MEDS: LEVOTHYROXINE NA 100 MCG TABLET (FP) PO SCH (06:24)
[2020-12-29] MEDS: FUROSEMIDE 40 MG TABLET (FP) PO SCH ×2 (06:24→17:17)
[2020-12-29] MEDS: INSULIN (LEVEMIR) 100 UNITS/ML UNITS SQ SCH ×2 (06:28→21:33)
[2020-12-29] MEDS: INSULIN SLIDING SCALE (NOVOLOG) 1 VIAL SQ SCH ×4 (06:28→21:34)
[2020-12-29 08:43] LABS: HEMATOCRIT 29.9 % (32.4-45.2); HEMOGLOBIN 9.6 GM/dL (10.7-15.3); MCH 28.3 pg (25.7-33.7); MCHC 32.2 g/dl (32.0-36.0); MEAN CELL VOLUME 87.9 fl (80-96); MEAN PLT VOLUME 8.8 fl (7.5-11.1); PLATELET COUNT 191 10^3/uL (134-434); WHITE BLOOD COUNT 5.3 K/mm3 (4.0-10.0)
[2020-12-29 09:10] LABS: CALCIUM 9.4 mg/dL (8.5-10.1)
[2020-12-29 09:11] LABS: BLOOD UREA NITROGEN 17.9 mg/dL (7-18)
[2020-12-29 09:14] LABS: CREATININE 2.6 mg/dL (0.55-1.3)
[2020-12-29] MEDS: amLODIPine BESYLATE 2.5 MG TABLET (FP) PO SCH (10:46)
[2020-12-29] MEDS: ASPIRIN 81 MG CHEWABLE TABLETS PO SCH (10:46)
[2020-12-29] MEDS: PANTOPRAZOLE 40 MG TABLET PO SCH (10:46)
[2020-12-29] MEDS: HEPARIN NA (PORCINE) 5,000 UNITS/ML 1ML VIAL SQ SCH ×2 (10:46→21:32)
[2020-12-29] MEDS: hydrALAZINE HCL 10 MG TABLET PO SCH ×2 (10:46→21:32)
[2020-12-29] MEDS: SPIRONOLACTONE 25 MG TABLET PO SCH (10:46)
[2020-12-29] MEDS: ISOSORBIDE MONONITRATE 30 MG TAB.SR.24H (FP) PO SCH (10:46)
[2020-12-29] MEDS: DOCUSATE SODIUM 100 MG CAPSULE (FP) PO SCH ×2 (10:55→21:32)
[2020-12-29] MEDS: POLYETHYLENE GLYCOL (HEALTHYLAX) 3350 17 GM PACKET PO SCH (10:55)
[2020-12-29] MEDS ORDERED: INSULIN (NOVOLOG) ASPART 100 UNITS/ML 10ML VIAL ONE ×2 (11:51→21:14)
[2020-12-29] MEDS: ATORVASTATIN CA 80 MG TABLET (FP) PO SCH (21:32)
[2020-12-30] MEDS: NYSTATIN 500,000 UNITS/5 ML SUSPENSION PO SCH ×4 (01:07→17:04)
[2020-12-30] MEDS: LEVOTHYROXINE NA 100 MCG TABLET (FP) PO SCH (06:29)
[2020-12-30] MEDS: FUROSEMIDE 40 MG TABLET (FP) PO SCH ×2 (06:29→17:04)
[2020-12-30] MEDS: INSULIN (LEVEMIR) 100 UNITS/ML UNITS SQ SCH (06:30)
[2020-12-30] MEDS: INSULIN SLIDING SCALE (NOVOLOG) 1 VIAL SQ SCH ×3 (06:31→17:18)
[2020-12-30 08:47] LABS: HEMOGLOBIN 9.7 GM/dL (10.7-15.3); MCH 28.3 pg (25.7-33.7); MCHC 32.5 g/dl (32.0-36.0); MEAN CELL VOLUME 87.2 fl (80-96); MEAN PLT VOLUME 8.3 fl (7.5-11.1); PLATELET COUNT 195 10^3/uL (134-434); RBC 3.44 M/mm3 (3.60-5.2); WHITE BLOOD COUNT 4.7 K/mm3 (4.0-10.0)
[2020-12-30] MEDS ORDERED: SODIUM CHLORIDE 250 ML IV PRN (08:48)
[2020-12-30 09:06] LABS: CALCIUM 9.3 mg/dL (8.5-10.1)
[2020-12-30 09:07] LABS: BLOOD UREA NITROGEN 29.6 mg/dL (7-18)
[2020-12-30 09:10] LABS: CREATININE 3.3 mg/dL (0.55-1.3)
[2020-12-30] MEDS: ASPIRIN 81 MG CHEWABLE TABLETS PO SCH ×2 (09:34→12:06)
[2020-12-30] MEDS: SPIRONOLACTONE 25 MG TABLET PO SCH ×2 (09:34→12:05)
[2020-12-30] MEDS: hydrALAZINE HCL 10 MG TABLET PO SCH ×2 (09:34→12:06)
[2020-12-30] MEDS: DOCUSATE SODIUM 100 MG CAPSULE (FP) PO SCH ×2 (09:34→12:06)
[2020-12-30] MEDS: POLYETHYLENE GLYCOL (HEALTHYLAX) 3350 17 GM PACKET PO SCH ×2 (09:34→12:06)
[2020-12-30] MEDS: amLODIPine BESYLATE 2.5 MG TABLET (FP) PO SCH ×2 (09:39→12:05)
[2020-12-30] MEDS: ISOSORBIDE MONONITRATE 30 MG TAB.SR.24H (FP) PO SCH ×2 (09:39→12:05)
[2020-12-30] MEDS: HEPARIN NA (PORCINE) 5,000 UNITS/ML 1ML VIAL SQ SCH ×2 (09:39→12:06)
[2020-12-30] MEDS: PANTOPRAZOLE 40 MG TABLET PO SCH ×2 (09:39→12:06)
[2020-12-30] MEDS ORDERED: EPOETIN ALFA-EPBX 4,000 UNIT/ML VIAL IVPUSH ONE (10:00)
[2020-12-30] MEDS ORDERED: BISACODYL 10 MG SUPP.RECT PR ONE (10:03)
[2020-12-30 14:18] VITALS: BP 128/68; PULSE 92; TEMP 98.1
== END 2020-12-30 18:32 | disposition home or self-care (01) | DRG 637 ==
LOC: JER 11:20 → JERBED 17:56 → JICU 21:18 → J5S 12-19 22:44 → J6S 12-22 22:35
PROVIDERS: ADMIT Internal Medicine; ATTEND Internal Medicine
PROC: 5A1D70Z Performance of Urinary Filtration, Intermittent, Less than 6 Hours Per Day (ICD-10-PCS; 2020-12-18)
PROC: 02HV33Z Insertion of Infusion Device into Superior Vena Cava, Percutaneous Approach (ICD-10-PCS; principal; 2020-12-19)
PROC: B548ZZA Ultrasonography of Superior Vena Cava, Guidance (ICD-10-PCS; 2020-12-19)
PROC: 02HV33Z Insertion of Infusion Device into Superior Vena Cava, Percutaneous Approach (ICD-10-PCS; 2020-12-24)
PROC: B548ZZA Ultrasonography of Superior Vena Cava, Guidance (ICD-10-PCS; 2020-12-24)
DX: E11.10 Type 2 diabetes mellitus with ketoacidosis without coma (principal); N18.6 End stage renal disease; D68.2 Hereditary deficiency of other clotting factors; I50.22 Chronic systolic (congestive) heart failure; I13.2 Hypertensive heart and chronic kidney disease with heart failure and with stage 5 chronic kidney disease, or end stage renal disease; N39.0 Urinary tract infection, site not specified; N17.9 Acute kidney failure, unspecified; I25.10 Atherosclerotic heart disease of native coronary artery without angina pectoris; E78.5 Hyperlipidemia, unspecified; E11.51 Type 2 diabetes mellitus with diabetic peripheral angiopathy without gangrene; Z95.1 Presence of aortocoronary bypass graft; E03.9 Hypothyroidism, unspecified; G20 Parkinson's disease; H11.31 Conjunctival hemorrhage, right eye; Z79.4 Long term (current) use of insulin; E11.22 Type 2 diabetes mellitus with diabetic chronic kidney disease; Z91.14 Patient's other noncompliance with medication regimen
CPT/HCPCS: 36415; 70450-TC; 71045-TC-FY; 76000-TC-FY; 80048; 80053; 81003; 82010; 82550; 82803; 82962; 83036; 83735; 84100; 84436; 84443; 84479; 84484; 85025; 85027; 85230; 85610; 85730; 86705; 86706; 86707; 86708; 86803; 86850; 86900; 86901; 87086; 87186; 87340; 87350; 87517; 87522; 93005; 93010; 94760; 97116-GP; 97162-GP; 99285-25; C9803; J0131; J1644; Q5106; U0003; U0005

== ENCOUNTER 2021-02-20 11:55 | Emergency (ER) | payer OTHER ==
[2021-02-20 12:16] VITALS: BP 152/86; PULSE 114; TEMP 97.9; BMI 23.6
[2021-02-20 13:39] LABS: BASO % 0.6 % (0-2.0); EOS % 0.7 % (0-4.5); HEMATOCRIT 39.6 % (32.4-45.2); HEMOGLOBIN 13.2 GM/dL (10.7-15.3); LYMPH % 25.8 % (8-40); MCHC 33.4 g/dl (32.0-36.0); MEAN PLT VOLUME 8.3 fl (7.5-11.1); MONO % 7.7 % (3.8-10.2); NEUT % 65.2 % (42.8-82.8); PLATELET COUNT 220 10^3/uL (134-434); RBC 4.26 M/mm3 (3.60-5.2); RDW 18.7 % (11.6-15.6); WHITE BLOOD COUNT 4.8 K/mm3 (4.0-10.0)
[2021-02-20 13:58] LABS: CHLORIDE 99 mmol/L (98-107); SODIUM 137 mmol/L (136-145)
[2021-02-20 14:00] LABS: ANION GAP 9 MMOL/L (8-16); BLOOD UREA NITROGEN 30.1 mg/dL (7-18); CALCIUM 10.8 mg/dL (8.5-10.1); CO2 29 mmol/L (21-32); GLUCOSE,RANDOM 244 mg/dL (74-106)
[2021-02-20 14:03] LABS: CREATININE 3.3 mg/dL (0.55-1.3); SGOT/AST 13 U/L (15-37); SGPT/ALT 16 U/L (13-61)
[2021-02-20 14:05] LABS: BILIRUBIN,TOTAL 0.6 mg/dL (0.2-1); TOT PROT 8.2 g/dl (6.4-8.2)
[2021-02-20 14:06] LABS: ALK PHOS 113 U/L (45-117)
== END 2021-02-20 15:28 | disposition home or self-care (01) ==
LOC: JER 11:55
DX: S91.301A Unspecified open wound, right foot, initial encounter (principal); Y99.9 Unspecified external cause status
CPT/HCPCS: 36415; 73630-TC-RT-FY; 80053; 82962; 85025; 85651; 86140; 93005; 93010; 99285-25

== ENCOUNTER 2021-05-21 01:58 | Inpatient (IN) | payer OTHER ==
[2021-05-21] MEDS ORDERED: SODIUM CHLORIDE 0.9% 500 ML INFUS.BAG IV ONE (02:06)
[2021-05-21 03:24] LABS: HEMATOCRIT 42.1 % (32.4-45.2); HEMOGLOBIN 12.7 GM/dL (10.7-15.3); MCH 31.5 pg (25.7-33.7); MCHC 30.2 g/dl (32.0-36.0); MEAN PLT VOLUME 9.4 fl (7.5-11.1); PLATELET COUNT 205 10^3/uL (134-434); RBC 4.04 M/mm3 (3.60-5.2); RDW 17.9 % (11.6-15.6); WHITE BLOOD COUNT 9.2 K/mm3 (4.0-10.0)
[2021-05-21 03:33] LABS: VENOUS BASE EXCESS -16.4 mmol/L (-2-2); VENOUS O2 SATURATION 67.2 % (70-80); VENOUS PCO2 34.4 mmHg (38-52)
[2021-05-21 03:34] LABS: VENOUS PH 7.143 (7.310-7.410)
[2021-05-21 03:39] LABS: MAGNESIUM 2.6 mg/dL (1.8-2.4)
[2021-05-21 03:42] LABS: PHOSPHOROUS 8.8 mg/dL (2.5-4.9)
[2021-05-21 03:47] LABS: INR 2.39 (0.83-1.09); PROTHROMBIN TIME (PATIENT) 27.7 SEC (9.7-13.0)
[2021-05-21 03:49] LABS: ACTIVATED PTT 30.1 SECONDS (25.2-36.5)
[2021-05-21 04:19] LABS: CHLORIDE 93 mmol/L (98-107); SODIUM 130 mmol/L (136-145)
[2021-05-21 04:22] LABS: ALBUMIN 3.9 g/dl (3.4-5.0); ANION GAP 25 MMOL/L (8-16); BLOOD UREA NITROGEN 90.4 mg/dL (7-18); CO2 12 mmol/L (21-32)
[2021-05-21 04:24] LABS: SGPT/ALT 21 U/L (13-61)
[2021-05-21 04:25] LABS: CREATININE 5.6 mg/dL (0.55-1.3); SGOT/AST 15 U/L (15-37); TOT PROT 7.6 g/dl (6.4-8.2)
[2021-05-21 04:27] LABS: ALK PHOS 124 U/L (45-117); BILIRUBIN,TOTAL 0.8 mg/dL (0.2-1)
[2021-05-21] MEDS ORDERED: INSULIN REGULAR HUMAN 100 UNITS/ML *VIAL* (FOR IVP) IVPUSH ONE (04:28)
[2021-05-21] MEDS ORDERED: SODIUM CHLORIDE 0.45%/POT 20 MEQ/1,000 ML INFUS.BAG IV SCH ×2 (04:30→05:38)
[2021-05-21] MEDS ORDERED: INSULIN REGULAR 100 UNITS in SODIUM CHLORIDE 99 ML IVPB SCH (04:30)
[2021-05-21 04:56] LABS: GLUCOSE,RANDOM 1147 mg/dL (74-106)
[2021-05-21 05:30] LABS: EPI CELLS 4 /uL (0-25.1); HYALINE CASTS 0 /uL (0-3.1); URINE APPEARANCE CLEAR; URINE BACTERIA 0 /uL (0-1359); URINE BILIRUBIN NEGATIVE (NEGATIVE); URINE COLOR YELLOW; URINE GLUCOSE (UA) 3+ (NEGATIVE); URINE KETONE NEGATIVE (NEGATIVE); URINE LEUK ESTERASE NEGATIVE (NEGATIVE); URINE NITRITE NEGATIVE (NEGATIVE); URINE PROTEIN 2+ (NEGATIVE); URINE RBC 23 /uL (0-23.9); URINE UROBILINOGEN 0.2 mg/dL (0.2-1.0); URINE WBC 8 /uL (0-25.8)
[2021-05-21] MEDS ORDERED: SODIUM CHLORIDE 0.45% 1,000 ML IV SCH (05:45)
[2021-05-21 06:57] LABS: ANISOCYTOSIS 2+; MACROCYTOSIS 1+
[2021-05-21] MEDS ORDERED: HEPARIN NA (PORCINE) 5,000 UNITS/ML 1ML VIAL ONE (07:19)
[2021-05-21] MEDS: HEPARIN NA (PORCINE) 5,000 UNITS/ML 1ML VIAL SQ SCH ×3 (07:22→21:31)
[2021-05-21] MEDS ORDERED: SODIUM CHLORIDE 250 ML IV PRN (10:46)
[2021-05-21] MEDS: MUPIROCIN 2% TOPICAL OINTMENT FOR DECOLONIZATION NS SCH ×2 (12:00→21:26)
[2021-05-21] MEDS ORDERED: SODIUM CHLORIDE 1,000 ML IV SCH (12:00)
[2021-05-21 13:02] LABS: BASO % 0.1 % (0-2.0); HEMATOCRIT 38.4 % (32.4-45.2); HEMOGLOBIN 12.3 GM/dL (10.7-15.3); LYMPH % 3.2 % (8-40); MCH 31.4 pg (25.7-33.7); MCHC 32.1 g/dl (32.0-36.0); MEAN CELL VOLUME 97.8 fl (80-96); MONO % 9.5 % (3.8-10.2); NEUT % 87.2 % (42.8-82.8); PLATELET COUNT 183 10^3/uL (134-434); RBC 3.92 M/mm3 (3.60-5.2); RDW 16.4 % (11.6-15.6); WHITE BLOOD COUNT 7.3 K/mm3 (4.0-10.0)
[2021-05-21 13:17] LABS: CHLORIDE 101 mmol/L (98-107); SODIUM 138 mmol/L (136-145)
[2021-05-21 13:21] LABS: CALCIUM 9.3 mg/dL (8.5-10.1)
[2021-05-21 13:22] LABS: ANION GAP 18 MMOL/L (8-16); BLOOD UREA NITROGEN 91.9 mg/dL (7-18); CO2 19 mmol/L (21-32)
[2021-05-21 13:25] LABS: CREATININE 5.4 mg/dL (0.55-1.3)
[2021-05-21 13:29] LABS: GLUCOSE,RANDOM 861 mg/dL (74-106)
[2021-05-21] MEDS: INSULIN SLIDING SCALE (NOVOLOG) 1 VIAL SQ SCH (16:41)
[2021-05-21 19:57] LABS: CALCIUM 9.5 mg/dL (8.5-10.1)
[2021-05-21 20:01] LABS: CREATININE 3.6 mg/dL (0.55-1.3)
[2021-05-21 20:03] LABS: BLOOD UREA NITROGEN 46.7 mg/dL (7-18)
[2021-05-21] MEDS ORDERED: INSULIN REGULAR HUMAN 100 UNITS/ML *VIAL SQ ONE (20:04)
[2021-05-21] MEDS ORDERED: INSULIN (NOVOLOG) ASPART 100 UNITS/ML 10ML VIAL SQ ONE (20:17)
[2021-05-21] MEDS: CHLORHEXIDINE GLUCONATE 4% CLEANSER FOR DECOLONIZATION TP SCH (21:25)
[2021-05-21 23:26] LABS: BLOOD UREA NITROGEN 42.9 mg/dL (7-18)
[2021-05-22] MEDS ORDERED: DEXTROSE 50%-WATER 25 GM/50 ML DISP.SYRIN ONE (01:27)
[2021-05-22] MEDS ORDERED: DEXTROSE 50%-WATER - 25 GM/50 ML VIAL IVPUSH ONE (01:31)
[2021-05-22] MEDS ORDERED: DEXTROSE 5%-NORMAL SALINE 1,000 ML IV SCH ×2 (01:45→09:08)
[2021-05-22] MEDS: POTASSIUM CHLORIDE TABS 20 MEQ TABLET.ER (FP) PO ONE ×2 (03:34→03:42)
[2021-05-22] MEDS: KCL 10 MEQ IVPB 10 MEQ/100 ML INFUS.BAG IVPB SCH ×3 (04:04→08:06)
[2021-05-22] MEDS: HEPARIN NA (PORCINE) 5,000 UNITS/ML 1ML VIAL SQ SCH ×3 (06:14→21:18)
[2021-05-22] MEDS: INSULIN SLIDING SCALE (NOVOLOG) 1 VIAL SQ SCH ×3 (06:26→17:17)
[2021-05-22 08:01] LABS: CALCIUM 9.3 mg/dL (8.5-10.1)
[2021-05-22 08:05] LABS: CREATININE 3.3 mg/dL (0.55-1.3)
[2021-05-22 08:07] LABS: BLOOD UREA NITROGEN 45.3 mg/dL (7-18); CALCIUM 9.6 mg/dL (8.5-10.1)
[2021-05-22 08:11] LABS: CREATININE 3.3 mg/dL (0.55-1.3)
[2021-05-22] MEDS: MUPIROCIN 2% TOPICAL OINTMENT FOR DECOLONIZATION NS SCH ×2 (09:48→21:19)
[2021-05-22] MEDS: CLOPIDOGREL BISULFATE 75 MG TABLET (FP) PO SCH (13:40)
[2021-05-22] MEDS: ASPIRIN COATED 81 MG TABLET.EC PO SCH (13:40)
[2021-05-22 16:40] LABS: CHLORIDE 103 mmol/L (98-107); SODIUM 138 mmol/L (136-145)
[2021-05-22 16:43] LABS: ANION GAP 11 MMOL/L (8-16); BLOOD UREA NITROGEN 44.3 mg/dL (7-18); CALCIUM 9.3 mg/dL (8.5-10.1); CO2 24 mmol/L (21-32); GLUCOSE,RANDOM 221 mg/dL (74-106)
[2021-05-22 16:46] LABS: CREATININE 3.3 mg/dL (0.55-1.3)
[2021-05-22] MEDS: CHLORHEXIDINE GLUCONATE 4% CLEANSER FOR DECOLONIZATION TP SCH (21:19)
[2021-05-23] MEDS: HEPARIN NA (PORCINE) 5,000 UNITS/ML 1ML VIAL SQ SCH ×3 (05:28→21:52)
[2021-05-23] MEDS: INSULIN SLIDING SCALE (NOVOLOG) 1 VIAL SQ SCH ×4 (06:31→22:11)
[2021-05-23 06:50] LABS: BASO % 0.2 % (0-2.0); HEMATOCRIT 42.4 % (32.4-45.2); HEMOGLOBIN 13.5 GM/dL (10.7-15.3); LYMPH % 12.8 % (8-40); MEAN CELL VOLUME 96.9 fl (80-96); MEAN PLT VOLUME 8.9 fl (7.5-11.1); MONO % 8.9 % (3.8-10.2); NEUT % 78.1 % (42.8-82.8); PLATELET COUNT 176 10^3/uL (134-434); RBC 4.38 M/mm3 (3.60-5.2); RDW 17.3 % (11.6-15.6); WHITE BLOOD COUNT 5.9 K/mm3 (4.0-10.0)
[2021-05-23 07:16] LABS: ALBUMIN 3.1 g/dl (3.4-5.0)
[2021-05-23 07:17] LABS: CALCIUM 9.6 mg/dL (8.5-10.1); MAGNESIUM 2.2 mg/dL (1.8-2.4)
[2021-05-23 07:18] LABS: CREATININE 3.7 mg/dL (0.55-1.3); PHOSPHOROUS 4.2 mg/dL (2.5-4.9)
[2021-05-23 07:20] LABS: TOT PROT 6.2 g/dl (6.4-8.2)
[2021-05-23 07:21] LABS: BILIRUBIN,TOTAL 0.6 mg/dL (0.2-1)
[2021-05-23] MEDS: MUPIROCIN 2% TOPICAL OINTMENT FOR DECOLONIZATION NS SCH (09:58)
[2021-05-23] MEDS: CLOPIDOGREL BISULFATE 75 MG TABLET (FP) PO SCH (09:58)
[2021-05-23] MEDS: ASPIRIN COATED 81 MG TABLET.EC PO SCH (09:58)
[2021-05-23] MEDS ORDERED: INSULIN (NOVOLOG) ASPART 100 UNITS/ML 10ML VIAL ONE ×2 (17:20→21:26)
[2021-05-23] MEDS: ATORVASTATIN CA 80 MG TABLET (FP) PO SCH (21:52)
[2021-05-23] MEDS ORDERED: INSULIN (LEVEMIR) 100 UNITS/ML UNITS SQ SCH (22:00)
[2021-05-24] MEDS ORDERED: DEXTROSE 50%-WATER - 25 GM/50 ML VIAL IVPUSH ONE (06:15)
[2021-05-24] MEDS: LEVOTHYROXINE NA 100 MCG TABLET (FP) PO SCH (06:49)
[2021-05-24] MEDS: HEPARIN NA (PORCINE) 5,000 UNITS/ML 1ML VIAL SQ SCH ×3 (06:49→21:46)
[2021-05-24] MEDS: INSULIN SLIDING SCALE (NOVOLOG) 1 VIAL SQ SCH ×4 (06:49→21:46)
[2021-05-24] MEDS: ASPIRIN COATED 81 MG TABLET.EC PO SCH (10:35)
[2021-05-24] MEDS: CLOPIDOGREL BISULFATE 75 MG TABLET (FP) PO SCH (10:36)
[2021-05-24] MEDS: ISOSORBIDE MONONITRATE 30 MG TAB.SR.24H (FP) PO SCH (10:36)
[2021-05-24] MEDS ORDERED: INSULIN (NOVOLOG) ASPART 100 UNITS/ML 10ML VIAL ONE (11:07)
[2021-05-24] MEDS: NYSTATIN 500,000 UNITS/5 ML SUSPENSION PO SCH ×2 (19:39→21:51)
[2021-05-24] MEDS: ATORVASTATIN CA 80 MG TABLET (FP) PO SCH (21:46)
[2021-05-24] MEDS ORDERED: INSULIN (LEVEMIR) 100 UNITS/ML UNITS SQ SCH (22:00)
[2021-05-25] MEDS: NYSTATIN 500,000 UNITS/5 ML SUSPENSION PO SCH ×4 (00:30→17:09)
[2021-05-25] MEDS: HEPARIN NA (PORCINE) 5,000 UNITS/ML 1ML VIAL SQ SCH ×3 (05:58→22:17)
[2021-05-25] MEDS: LEVOTHYROXINE NA 100 MCG TABLET (FP) PO SCH (06:01)
[2021-05-25] MEDS: INSULIN SLIDING SCALE (NOVOLOG) 1 VIAL SQ SCH ×4 (06:01→22:18)
[2021-05-25 10:24] LABS: HEMATOCRIT 44.5 % (32.4-45.2); HEMOGLOBIN 14.6 GM/dL (10.7-15.3); MCH 31.6 pg (25.7-33.7); MCHC 32.7 g/dl (32.0-36.0); MEAN CELL VOLUME 96.5 fl (80-96); MEAN PLT VOLUME 8.5 fl (7.5-11.1); PLATELET COUNT 130 10^3/uL (134-434); RBC 4.61 M/mm3 (3.60-5.2); RDW 17.1 % (11.6-15.6); WHITE BLOOD COUNT 5.4 K/mm3 (4.0-10.0)
[2021-05-25] MEDS: CLOPIDOGREL BISULFATE 75 MG TABLET (FP) PO SCH (10:26)
[2021-05-25] MEDS: ISOSORBIDE MONONITRATE 30 MG TAB.SR.24H (FP) PO SCH (10:26)
[2021-05-25] MEDS: ASPIRIN COATED 81 MG TABLET.EC PO SCH (10:26)
[2021-05-25] MEDS: INSULIN (LEVEMIR) 100 UNITS/ML UNITS SQ SCH ×2 (10:35→22:18)
[2021-05-25] MEDS: PANTOPRAZOLE 40 MG TABLET PO SCH (11:24)
[2021-05-25 11:27] LABS: CALCIUM 9.4 mg/dL (8.5-10.1)
[2021-05-25 11:28] LABS: BLOOD UREA NITROGEN 40.6 mg/dL (7-18); MAGNESIUM 2.2 mg/dL (1.8-2.4)
[2021-05-25 11:30] LABS: PHOSPHOROUS 2.9 mg/dL (2.5-4.9)
[2021-05-25 11:31] LABS: BILIRUBIN,TOTAL 0.7 mg/dL (0.2-1); TOT PROT 6.4 g/dl (6.4-8.2)
[2021-05-25 11:38] LABS: ANISOCYTOSIS 0; MACROCYTOSIS 1+
[2021-05-25] MEDS ORDERED: EPOETIN ALFA-EPBX 4,000 UNIT/ML VIAL SQ ONE (11:55)
[2021-05-25] MEDS ORDERED: SODIUM CHLORIDE 250 ML IV PRN (11:55)
[2021-05-25] MEDS ORDERED: INSULIN (NOVOLOG) ASPART 100 UNITS/ML 10ML VIAL ONE (17:23)
[2021-05-25] MEDS: ATORVASTATIN CA 80 MG TABLET (FP) PO SCH (22:18)
[2021-05-26] MEDS: NYSTATIN 500,000 UNITS/5 ML SUSPENSION PO SCH ×5 (00:06→23:25)
[2021-05-26] MEDS: HEPARIN NA (PORCINE) 5,000 UNITS/ML 1ML VIAL SQ SCH ×3 (05:31→22:07)
[2021-05-26] MEDS: LEVOTHYROXINE NA 100 MCG TABLET (FP) PO SCH (06:23)
[2021-05-26] MEDS: INSULIN SLIDING SCALE (NOVOLOG) 1 VIAL SQ SCH ×5 (06:23→22:49)
[2021-05-26] MEDS: INSULIN (LEVEMIR) 100 UNITS/ML UNITS SQ SCH ×2 (06:23→22:07)
[2021-05-26 08:57] LABS: BLOOD UREA NITROGEN 44.6 mg/dL (7-18); CALCIUM 8.4 mg/dL (8.5-10.1)
[2021-05-26 09:01] LABS: CREATININE 3.3 mg/dL (0.55-1.3)
[2021-05-26] MEDS ORDERED: INSULIN (NOVOLOG) ASPART 100 UNITS/ML 10ML VIAL ONE (10:46)
[2021-05-26] MEDS: PANTOPRAZOLE 40 MG TABLET PO SCH (10:50)
[2021-05-26] MEDS: ASPIRIN COATED 81 MG TABLET.EC PO SCH (10:50)
[2021-05-26] MEDS: ISOSORBIDE MONONITRATE 30 MG TAB.SR.24H (FP) PO SCH (10:50)
[2021-05-26] MEDS: CLOPIDOGREL BISULFATE 75 MG TABLET (FP) PO SCH (10:50)
[2021-05-26] MEDS: BENZOCAINE/MENTH/CETYLPYRD CL 1 EACH LOZENGE MM PRN (10:50)
[2021-05-26] MEDS ORDERED: FLUCONAZOLE 150 MG TABLET PO ONE (13:00)
[2021-05-26 17:24] VITALS: BMI 23.3
[2021-05-26] MEDS: ATORVASTATIN CA 80 MG TABLET (FP) PO SCH (22:07)
[2021-05-27] MEDS: HEPARIN NA (PORCINE) 5,000 UNITS/ML 1ML VIAL SQ SCH ×3 (05:56→22:03)
[2021-05-27] MEDS: NYSTATIN 500,000 UNITS/5 ML SUSPENSION PO SCH ×2 (05:56→12:14)
[2021-05-27] MEDS: INSULIN SLIDING SCALE (NOVOLOG) 1 VIAL SQ SCH ×4 (06:02→22:04)
[2021-05-27] MEDS: LEVOTHYROXINE NA 100 MCG TABLET (FP) PO SCH (06:14)
[2021-05-27] MEDS: INSULIN (LEVEMIR) 100 UNITS/ML UNITS SQ SCH ×2 (07:04→22:03)
[2021-05-27 09:01] LABS: BLOOD UREA NITROGEN 24.6 mg/dL (7-18); CALCIUM 8.6 mg/dL (8.5-10.1)
[2021-05-27 09:04] LABS: CREATININE 2.6 mg/dL (0.55-1.3)
[2021-05-27] MEDS: ISOSORBIDE MONONITRATE 30 MG TAB.SR.24H (FP) PO SCH (10:50)
[2021-05-27] MEDS: PANTOPRAZOLE 40 MG TABLET PO SCH (10:51)
[2021-05-27] MEDS: ASPIRIN COATED 81 MG TABLET.EC PO SCH (10:51)
[2021-05-27] MEDS: BENZOCAINE/MENTH/CETYLPYRD CL 1 EACH LOZENGE MM PRN (10:51)
[2021-05-27] MEDS: CLOPIDOGREL BISULFATE 75 MG TABLET (FP) PO SCH (10:51)
[2021-05-27 11:03] LABS: HIV INTERPRETATION NEGATIVE (NEGATIVE)
[2021-05-27] MEDS ORDERED: SODIUM CHLORIDE 250 ML IV PRN (11:24)
[2021-05-27] MEDS ORDERED: MAG HYDROX/ALH/SMC/DPHA/LIDO 240 ML MOUTHWASH MM SCH (12:00)
[2021-05-27] MEDS ORDERED: MAG HYDROX/AL HYDROX/SIMETH 30 ML UNIT-DOSE CUP PO SCH (12:00)
[2021-05-27] MEDS: MAG HYDROX/AL HYDROX/SIMETH 30 ML UNIT-DOSE CUP PO SCH ×3 (12:14→23:18)
[2021-05-27] MEDS ORDERED: PHYTONADIONE 10 MG/1 ML AMP IVPB ONE (16:34)
[2021-05-27] MEDS: ATORVASTATIN CA 80 MG TABLET (FP) PO SCH (22:03)
[2021-05-28] MEDS: MAG HYDROX/AL HYDROX/SIMETH 30 ML UNIT-DOSE CUP PO SCH (06:21)
[2021-05-28] MEDS: LEVOTHYROXINE NA 100 MCG TABLET (FP) PO SCH (06:21)
[2021-05-28] MEDS: INSULIN SLIDING SCALE (NOVOLOG) 1 VIAL SQ SCH ×4 (06:28→22:57)
[2021-05-28] MEDS: INSULIN (LEVEMIR) 100 UNITS/ML UNITS SQ SCH ×2 (06:28→22:57)
[2021-05-28] MEDS: HEPARIN NA (PORCINE) 5,000 UNITS/ML 1ML VIAL SQ SCH (06:29)
[2021-05-28] MEDS: CLOPIDOGREL BISULFATE 75 MG TABLET (FP) PO SCH (09:52)
[2021-05-28] MEDS: ASPIRIN COATED 81 MG TABLET.EC PO SCH (09:52)
[2021-05-28] MEDS: ISOSORBIDE MONONITRATE 30 MG TAB.SR.24H (FP) PO SCH (09:52)
[2021-05-28] MEDS: PANTOPRAZOLE 40 MG TABLET PO SCH ×2 (09:53→22:48)
[2021-05-28 11:47] LABS: BASO % 0.4 % (0-2.0); EOS % 1.2 % (0-4.5); HEMATOCRIT 38.9 % (32.4-45.2); HEMOGLOBIN 12.8 GM/dL (10.7-15.3); LYMPH % 20.6 % (8-40); MCHC 32.8 g/dl (32.0-36.0); MEAN CELL VOLUME 97.5 fl (80-96); MEAN PLT VOLUME 8.8 fl (7.5-11.1); MONO % 14.9 % (3.8-10.2); NEUT % 62.9 % (42.8-82.8); PLATELET COUNT 140 10^3/uL (134-434); RBC 3.99 M/mm3 (3.60-5.2); RDW 17.7 % (11.6-15.6); WHITE BLOOD COUNT 3.6 K/mm3 (4.0-10.0)
[2021-05-28 11:51] LABS: INR 1.58 (0.83-1.09); PROTHROMBIN TIME (PATIENT) 18.3 SEC (9.7-13.0)
[2021-05-28 12:06] LABS: CALCIUM 8.7 mg/dL (8.5-10.1)
[2021-05-28 12:07] LABS: BLOOD UREA NITROGEN 31.2 mg/dL (7-18)
[2021-05-28 12:11] LABS: BILIRUBIN,TOTAL 0.6 mg/dL (0.2-1); TOT PROT 6.3 g/dl (6.4-8.2)
[2021-05-28] MEDS: MAG HYDROX/ALH/SMC/DPHA/LIDO 240 ML MOUTHWASH MM SCH (17:16)
[2021-05-28] MEDS: ATORVASTATIN CA 80 MG TABLET (FP) PO SCH (22:48)
[2021-05-29] MEDS: MAG HYDROX/ALH/SMC/DPHA/LIDO 240 ML MOUTHWASH MM SCH ×4 (00:36→17:35)
[2021-05-29] MEDS: INSULIN (LEVEMIR) 100 UNITS/ML UNITS SQ SCH ×2 (06:26→22:09)
[2021-05-29] MEDS: LEVOTHYROXINE NA 100 MCG TABLET (FP) PO SCH (06:28)
[2021-05-29] MEDS: INSULIN SLIDING SCALE (NOVOLOG) 1 VIAL SQ SCH ×4 (06:28→22:09)
[2021-05-29 08:12] LABS: BASO % 0.2 % (0-2.0); EOS % 0.8 % (0-4.5); HEMOGLOBIN 12.1 GM/dL (10.7-15.3); MCH 31.1 pg (25.7-33.7); MCHC 31.9 g/dl (32.0-36.0); MEAN CELL VOLUME 97.6 fl (80-96); MEAN PLT VOLUME 9.1 fl (7.5-11.1); MONO % 19.5 % (3.8-10.2); NEUT % 62.5 % (42.8-82.8); PLATELET COUNT 147 10^3/uL (134-434); RBC 3.89 M/mm3 (3.60-5.2); RDW 17.3 % (11.6-15.6); WHITE BLOOD COUNT 4.4 K/mm3 (4.0-10.0)
[2021-05-29 08:30] LABS: CALCIUM 8.7 mg/dL (8.5-10.1)
[2021-05-29 08:31] LABS: ALBUMIN 2.8 g/dl (3.4-5.0); BLOOD UREA NITROGEN 39.4 mg/dL (7-18); MAGNESIUM 2.2 mg/dL (1.8-2.4)
[2021-05-29 08:34] LABS: CREATININE 3.4 mg/dL (0.55-1.3); PHOSPHOROUS 1.4 mg/dL (2.5-4.9)
[2021-05-29 08:35] LABS: BILIRUBIN,TOTAL 0.5 mg/dL (0.2-1); TOT PROT 5.7 g/dl (6.4-8.2)
[2021-05-29] MEDS: ISOSORBIDE MONONITRATE 30 MG TAB.SR.24H (FP) PO SCH (14:35)
[2021-05-29] MEDS: ASPIRIN COATED 81 MG TABLET.EC PO SCH (14:35)
[2021-05-29] MEDS: PANTOPRAZOLE 40 MG TABLET PO SCH ×2 (14:35→22:10)
[2021-05-29] MEDS: CLOPIDOGREL BISULFATE 75 MG TABLET (FP) PO SCH (14:41)
[2021-05-29] MEDS ORDERED: INSULIN (NOVOLOG) ASPART 100 UNITS/ML 10ML VIAL ONE (21:59)
[2021-05-29] MEDS: HEPARIN NA (PORCINE) 5,000 UNITS/ML 1ML VIAL SQ SCH (22:08)
[2021-05-29] MEDS: ATORVASTATIN CA 80 MG TABLET (FP) PO SCH (22:10)
[2021-05-30] MEDS: MAG HYDROX/ALH/SMC/DPHA/LIDO 240 ML MOUTHWASH MM SCH ×5 (00:32→23:04)
[2021-05-30] MEDS: LEVOTHYROXINE NA 100 MCG TABLET (FP) PO SCH (06:36)
[2021-05-30] MEDS: HEPARIN NA (PORCINE) 5,000 UNITS/ML 1ML VIAL SQ SCH ×3 (06:36→22:53)
[2021-05-30] MEDS: INSULIN (LEVEMIR) 100 UNITS/ML UNITS SQ SCH (06:36)
[2021-05-30] MEDS: INSULIN SLIDING SCALE (NOVOLOG) 1 VIAL SQ SCH ×4 (06:37→22:54)
[2021-05-30] MEDS ORDERED: DEXTROSE 50%-WATER - 25 GM/50 ML VIAL IVPUSH ONE (06:48)
[2021-05-30] MEDS ORDERED: INSULIN (LEVEMIR) 100 UNITS/ML UNITS SQ SCH (10:03)
[2021-05-30] MEDS: CLOPIDOGREL BISULFATE 75 MG TABLET (FP) PO SCH (10:10)
[2021-05-30] MEDS: PANTOPRAZOLE 40 MG TABLET PO SCH ×2 (10:10→22:53)
[2021-05-30] MEDS: ASPIRIN COATED 81 MG TABLET.EC PO SCH (10:10)
[2021-05-30] MEDS: ISOSORBIDE MONONITRATE 30 MG TAB.SR.24H (FP) PO SCH (10:10)
[2021-05-30] MEDS: guaiFENesin/D-M SUGAR-FREE/ACLHOL-FREE 5 ML UNIT DOSE PO PRN (11:22)
[2021-05-30] MEDS: ATORVASTATIN CA 80 MG TABLET (FP) PO SCH (22:53)
[2021-05-31] MEDS: INSULIN SLIDING SCALE (NOVOLOG) 1 VIAL SQ SCH ×5 (06:20→21:43)
[2021-05-31] MEDS: LEVOTHYROXINE NA 100 MCG TABLET (FP) PO SCH (06:21)
[2021-05-31] MEDS: HEPARIN NA (PORCINE) 5,000 UNITS/ML 1ML VIAL SQ SCH ×3 (06:21→21:42)
[2021-05-31] MEDS: MAG HYDROX/ALH/SMC/DPHA/LIDO 240 ML MOUTHWASH MM SCH ×5 (06:21→23:12)
[2021-05-31] MEDS ORDERED: SODIUM CHLORIDE 250 ML IV PRN (07:28)
[2021-05-31 09:22] LABS: BASO % 0.7 % (0-2.0); EOS % 1.3 % (0-4.5); HEMATOCRIT 26.6 % (32.4-45.2); HEMOGLOBIN 8.5 GM/dL (10.7-15.3); LYMPH % 13.2 % (8-40); MCH 31.3 pg (25.7-33.7); MCHC 32.1 g/dl (32.0-36.0); MEAN CELL VOLUME 97.6 fl (80-96); MEAN PLT VOLUME 8.9 fl (7.5-11.1); MONO % 17.5 % (3.8-10.2); NEUT % 67.3 % (42.8-82.8); PLATELET COUNT 105 10^3/uL (134-434); RBC 2.73 M/mm3 (3.60-5.2); WHITE BLOOD COUNT 2.7 K/mm3 (4.0-10.0)
[2021-05-31 10:00] LABS: BLOOD UREA NITROGEN 16.9 mg/dL (7-18)
[2021-05-31 10:03] LABS: CREATININE 2.2 mg/dL (0.55-1.3)
[2021-05-31 10:05] LABS: BILIRUBIN,TOTAL 0.3 mg/dL (0.2-1)
[2021-05-31 10:07] LABS: ALBUMIN 1.7 g/dl (3.4-5.0); TOT PROT 3.7 g/dl (6.4-8.2)
[2021-05-31] MEDS: ISOSORBIDE MONONITRATE 30 MG TAB.SR.24H (FP) PO SCH ×2 (10:57→12:46)
[2021-05-31] MEDS: ASPIRIN COATED 81 MG TABLET.EC PO SCH ×2 (10:57→12:46)
[2021-05-31] MEDS: CLOPIDOGREL BISULFATE 75 MG TABLET (FP) PO SCH ×2 (10:57→12:46)
[2021-05-31] MEDS: PANTOPRAZOLE 40 MG TABLET PO SCH ×3 (10:57→21:42)
[2021-05-31] MEDS: guaiFENesin/D-M SUGAR-FREE/ACLHOL-FREE 5 ML UNIT DOSE PO PRN (12:48)
[2021-05-31 16:24] LABS: BASO % 0.9 % (0-2.0); EOS % 0.8 % (0-4.5); HEMATOCRIT 37.9 % (32.4-45.2); HEMOGLOBIN 12.3 GM/dL (10.7-15.3); LYMPH % 13.3 % (8-40); MCH 31.5 pg (25.7-33.7); MCHC 32.5 g/dl (32.0-36.0); MEAN PLT VOLUME 8.6 fl (7.5-11.1); MONO % 19.1 % (3.8-10.2); NEUT % 65.9 % (42.8-82.8); PLATELET COUNT 131 10^3/uL (134-434); RBC 3.91 M/mm3 (3.60-5.2); RDW 17.4 % (11.6-15.6); WHITE BLOOD COUNT 3.6 K/mm3 (4.0-10.0)
[2021-05-31] MEDS: ATORVASTATIN CA 80 MG TABLET (FP) PO SCH (21:42)
[2021-06-01] MEDS: LEVOTHYROXINE NA 100 MCG TABLET (FP) PO SCH (06:00)
[2021-06-01] MEDS: HEPARIN NA (PORCINE) 5,000 UNITS/ML 1ML VIAL SQ SCH (06:00)
[2021-06-01] MEDS: MAG HYDROX/ALH/SMC/DPHA/LIDO 240 ML MOUTHWASH MM SCH ×2 (06:01→11:58)
[2021-06-01] MEDS: INSULIN SLIDING SCALE (NOVOLOG) 1 VIAL SQ SCH ×4 (06:01→22:02)
[2021-06-01 08:42] LABS: BASO % 0.6 % (0-2.0); EOS % 0.6 % (0-4.5); HEMATOCRIT 33.8 % (32.4-45.2); LYMPH % 17.9 % (8-40); MCH 31.6 pg (25.7-33.7); MCHC 32.5 g/dl (32.0-36.0); MEAN CELL VOLUME 97.2 fl (80-96); MEAN PLT VOLUME 8.6 fl (7.5-11.1); MONO % 17.3 % (3.8-10.2); NEUT % 63.6 % (42.8-82.8); PLATELET COUNT 147 10^3/uL (134-434); RBC 3.48 M/mm3 (3.60-5.2); RDW 17.2 % (11.6-15.6); WHITE BLOOD COUNT 3.8 K/mm3 (4.0-10.0)
[2021-06-01] MEDS: guaiFENesin/D-M SUGAR-FREE/ACLHOL-FREE 5 ML UNIT DOSE PO PRN (09:08)
[2021-06-01] MEDS: ASPIRIN COATED 81 MG TABLET.EC PO SCH (09:08)
[2021-06-01] MEDS: PANTOPRAZOLE 40 MG TABLET PO SCH ×2 (09:08→22:50)
[2021-06-01] MEDS: CLOPIDOGREL BISULFATE 75 MG TABLET (FP) PO SCH (09:08)
[2021-06-01] MEDS: ISOSORBIDE MONONITRATE 30 MG TAB.SR.24H (FP) PO SCH (09:08)
[2021-06-01 09:10] LABS: BLOOD UREA NITROGEN 17.5 mg/dL (7-18)
[2021-06-01 09:12] LABS: CREATININE 2.8 mg/dL (0.55-1.3)
[2021-06-01 09:13] LABS: BILIRUBIN,TOTAL 0.4 mg/dL (0.2-1); TOT PROT 5.4 g/dl (6.4-8.2)
[2021-06-01 09:22] LABS: ALBUMIN 2.6 g/dl (3.4-5.0); CALCIUM 8.2 mg/dL (8.5-10.1)
[2021-06-01] MEDS: BENZOCAINE/MENTH/CETYLPYRD CL 1 EACH LOZENGE MM PRN (17:48)
[2021-06-01] MEDS: ATORVASTATIN CA 80 MG TABLET (FP) PO SCH (22:50)
[2021-06-02] MEDS: LEVOTHYROXINE NA 100 MCG TABLET (FP) PO SCH (06:26)
[2021-06-02] MEDS: INSULIN SLIDING SCALE (NOVOLOG) 1 VIAL SQ SCH ×4 (06:29→22:24)
[2021-06-02] MEDS ORDERED: EPOETIN ALFA-EPBX 2,000 UNIT/ML VIAL SQ ONE (07:00)
[2021-06-02] MEDS ORDERED: SODIUM CHLORIDE 250 ML IV PRN (07:00)
[2021-06-02] MEDS ORDERED: PEG 3350/NA SULF BICARB CL/KCL 4000 ML SOLN.RECON PO ONE (10:00)
[2021-06-02] MEDS: PANTOPRAZOLE 40 MG TABLET PO SCH ×2 (12:14→22:31)
[2021-06-02] MEDS: ISOSORBIDE MONONITRATE 30 MG TAB.SR.24H (FP) PO SCH (12:14)
[2021-06-02] MEDS: ASPIRIN COATED 81 MG TABLET.EC PO SCH (12:54)
[2021-06-02] MEDS: CLOPIDOGREL BISULFATE 75 MG TABLET (FP) PO SCH (12:54)
[2021-06-02] MEDS ORDERED: PHYTONADIONE 10 MG/1 ML AMP IVPB ONE (16:14)
[2021-06-02] MEDS: ATORVASTATIN CA 80 MG TABLET (FP) PO SCH (22:31)
[2021-06-03] MEDS: LEVOTHYROXINE NA 100 MCG TABLET (FP) PO SCH (06:52)
[2021-06-03] MEDS: INSULIN SLIDING SCALE (NOVOLOG) 1 VIAL SQ SCH ×4 (06:55→21:38)
[2021-06-03 08:43] LABS: INR 1.68 (0.83-1.09); PROTHROMBIN TIME (PATIENT) 19.4 SEC (9.7-13.0)
[2021-06-03 08:54] LABS: BASO % 0.6 % (0-2.0); HEMATOCRIT 35.6 % (32.4-45.2); HEMOGLOBIN 11.2 GM/dL (10.7-15.3); MCH 30.9 pg (25.7-33.7); MCHC 31.5 g/dl (32.0-36.0); MEAN CELL VOLUME 98.1 fl (80-96); MEAN PLT VOLUME 8.6 fl (7.5-11.1); MONO % 14.2 % (3.8-10.2); NEUT % 62.2 % (42.8-82.8); PLATELET COUNT 145 10^3/uL (134-434); RBC 3.63 M/mm3 (3.60-5.2); RDW 17.3 % (11.6-15.6)
[2021-06-03 09:04] LABS: BLOOD UREA NITROGEN 16.2 mg/dL (7-18)
[2021-06-03 09:05] LABS: ALBUMIN 2.4 g/dl (3.4-5.0)
[2021-06-03 09:07] LABS: CREATININE 2.6 mg/dL (0.55-1.3)
[2021-06-03 09:09] LABS: BILIRUBIN,TOTAL 0.6 mg/dL (0.2-1); TOT PROT 5.2 g/dl (6.4-8.2)
[2021-06-03] MEDS: PANTOPRAZOLE 40 MG TABLET PO SCH ×2 (10:10→21:38)
[2021-06-03] MEDS: ISOSORBIDE MONONITRATE 30 MG TAB.SR.24H (FP) PO SCH (10:10)
[2021-06-03] MEDS: ASPIRIN COATED 81 MG TABLET.EC PO SCH (10:10)
[2021-06-03] MEDS ORDERED: BISACODYL 5 MG TABLET.DR (FP) PO ONE (20:00)
[2021-06-03] MEDS: ATORVASTATIN CA 80 MG TABLET (FP) PO SCH (21:38)
[2021-06-04] MEDS: INSULIN SLIDING SCALE (NOVOLOG) 1 VIAL SQ SCH ×4 (06:03→21:50)
[2021-06-04] MEDS: LEVOTHYROXINE NA 100 MCG TABLET (FP) PO SCH (06:03)
[2021-06-04 09:19] LABS: BASO % 0.4 % (0-2.0); EOS % 0.4 % (0-4.5); HEMATOCRIT 36.2 % (32.4-45.2); HEMOGLOBIN 11.8 GM/dL (10.7-15.3); LYMPH % 27.3 % (8-40); MCH 31.4 pg (25.7-33.7); MCHC 32.6 g/dl (32.0-36.0); MEAN CELL VOLUME 96.4 fl (80-96); MEAN PLT VOLUME 8.3 fl (7.5-11.1); MONO % 11.4 % (3.8-10.2); NEUT % 60.5 % (42.8-82.8); PLATELET COUNT 147 10^3/uL (134-434); RBC 3.76 M/mm3 (3.60-5.2); WHITE BLOOD COUNT 3.1 K/mm3 (4.0-10.0)
[2021-06-04 09:42] LABS: CALCIUM 8.3 mg/dL (8.5-10.1)
[2021-06-04 09:43] LABS: ALBUMIN 2.5 g/dl (3.4-5.0); BLOOD UREA NITROGEN 25.9 mg/dL (7-18)
[2021-06-04 09:46] LABS: CREATININE 3.3 mg/dL (0.55-1.3)
[2021-06-04 09:48] LABS: BILIRUBIN,TOTAL 0.6 mg/dL (0.2-1); TOT PROT 5.6 g/dl (6.4-8.2)
[2021-06-04] MEDS ORDERED: SODIUM CHLORIDE 250 ML IV PRN (10:08)
[2021-06-04] MEDS ORDERED: EPOETIN ALFA-EPBX 3,000 UNIT/ML VIAL IVPUSH ONE (10:15)
[2021-06-04] MEDS: PANTOPRAZOLE 40 MG TABLET PO SCH ×2 (12:05→21:46)
[2021-06-04] MEDS: ISOSORBIDE MONONITRATE 30 MG TAB.SR.24H (FP) PO SCH (12:05)
[2021-06-04] MEDS: ASPIRIN COATED 81 MG TABLET.EC PO SCH (12:05)
[2021-06-04] MEDS ORDERED: INSULIN (NOVOLOG) ASPART 100 UNITS/ML 10ML VIAL ONE (17:02)
[2021-06-04] MEDS: ATORVASTATIN CA 80 MG TABLET (FP) PO SCH (21:46)
[2021-06-05] MEDS: LEVOTHYROXINE NA 100 MCG TABLET (FP) PO SCH (06:21)
[2021-06-05] MEDS: INSULIN SLIDING SCALE (NOVOLOG) 1 VIAL SQ SCH ×4 (06:21→21:24)
[2021-06-05] MEDS: BENZOCAINE/MENTH/CETYLPYRD CL 1 EACH LOZENGE MM PRN (07:50)
[2021-06-05 09:16] LABS: CALCIUM 8.9 mg/dL (8.5-10.1)
[2021-06-05 09:17] LABS: ALBUMIN 2.9 g/dl (3.4-5.0); BLOOD UREA NITROGEN 16.7 mg/dL (7-18)
[2021-06-05 09:20] LABS: CREATININE 2.7 mg/dL (0.55-1.3)
[2021-06-05 09:22] LABS: BILIRUBIN,TOTAL 0.6 mg/dL (0.2-1); TOT PROT 6.2 g/dl (6.4-8.2)
[2021-06-05] MEDS: ISOSORBIDE MONONITRATE 30 MG TAB.SR.24H (FP) PO SCH (10:52)
[2021-06-05] MEDS: ASPIRIN COATED 81 MG TABLET.EC PO SCH (10:52)
[2021-06-05] MEDS: PANTOPRAZOLE 40 MG TABLET PO SCH ×2 (10:52→21:24)
[2021-06-05 15:51] LABS: GLUCOSE,RANDOM 416 mg/dL (74-106)
[2021-06-05] MEDS: ATORVASTATIN CA 80 MG TABLET (FP) PO SCH (21:24)
[2021-06-06] MEDS: LEVOTHYROXINE NA 100 MCG TABLET (FP) PO SCH (06:00)
[2021-06-06] MEDS: INSULIN SLIDING SCALE (NOVOLOG) 1 VIAL SQ SCH ×4 (06:01→21:43)
[2021-06-06] MEDS ORDERED: INSULIN (NOVOLOG) ASPART 100 UNITS/ML 10ML VIAL ONE (07:39)
[2021-06-06] MEDS ORDERED: PEG 3350/NA SULF BICARB CL/KCL 4000 ML SOLN.RECON PO ONE (09:00)
[2021-06-06] MEDS: ISOSORBIDE MONONITRATE 30 MG TAB.SR.24H (FP) PO SCH (09:11)
[2021-06-06] MEDS: PANTOPRAZOLE 40 MG TABLET PO SCH ×2 (09:11→21:43)
[2021-06-06] MEDS: ASPIRIN COATED 81 MG TABLET.EC PO SCH (09:11)
[2021-06-06 10:41] LABS: BASO % 0.3 % (0-2.0); EOS % 0.4 % (0-4.5); HEMATOCRIT 40.1 % (32.4-45.2); HEMOGLOBIN 12.6 GM/dL (10.7-15.3); LYMPH % 20.4 % (8-40); MCH 30.6 pg (25.7-33.7); MCHC 31.6 g/dl (32.0-36.0); MEAN CELL VOLUME 96.9 fl (80-96); MEAN PLT VOLUME 8.6 fl (7.5-11.1); MONO % 10.1 % (3.8-10.2); NEUT % 68.8 % (42.8-82.8); PLATELET COUNT 176 10^3/uL (134-434); RBC 4.13 M/mm3 (3.60-5.2); RDW 16.8 % (11.6-15.6); WHITE BLOOD COUNT 4.4 K/mm3 (4.0-10.0)
[2021-06-06 11:01] LABS: INR 1.75 (0.83-1.09); PROTHROMBIN TIME (PATIENT) 20.2 SEC (9.7-13.0)
[2021-06-06 11:02] LABS: CALCIUM 8.4 mg/dL (8.5-10.1)
[2021-06-06 11:03] LABS: BLOOD UREA NITROGEN 26.1 mg/dL (7-18)
[2021-06-06 11:06] LABS: CREATININE 3.3 mg/dL (0.55-1.3)
[2021-06-06] MEDS ORDERED: SODIUM CHLORIDE 250 ML IV PRN (13:22)
[2021-06-06] MEDS ORDERED: BISACODYL 5 MG TABLET.DR (FP) PO ONE (20:00)
[2021-06-06] MEDS: ATORVASTATIN CA 80 MG TABLET (FP) PO SCH (21:43)
[2021-06-07] MEDS: LEVOTHYROXINE NA 100 MCG TABLET (FP) PO SCH (06:05)
[2021-06-07] MEDS: INSULIN SLIDING SCALE (NOVOLOG) 1 VIAL SQ SCH ×4 (06:06→21:30)
[2021-06-07] MEDS ORDERED: INSULIN (NOVOLOG) ASPART 100 UNITS/ML 10ML VIAL ONE (06:45)
[2021-06-07 08:51] LABS: INR 1.67 (0.83-1.09); PROTHROMBIN TIME (PATIENT) 19.3 SEC (9.7-13.0)
[2021-06-07 09:06] LABS: BASO % 0.4 % (0-2.0); EOS % 0.5 % (0-4.5); HEMATOCRIT 41.7 % (32.4-45.2); HEMOGLOBIN 13.4 GM/dL (10.7-15.3); LYMPH % 15.5 % (8-40); MCHC 32.3 g/dl (32.0-36.0); MEAN CELL VOLUME 96.1 fl (80-96); MEAN PLT VOLUME 8.6 fl (7.5-11.1); NEUT % 73.6 % (42.8-82.8); PLATELET COUNT 172 10^3/uL (134-434); RBC 4.34 M/mm3 (3.60-5.2); RDW 16.9 % (11.6-15.6); WHITE BLOOD COUNT 3.4 K/mm3 (4.0-10.0)
[2021-06-07 09:15] LABS: CREATININE 3.5 mg/dL (0.55-1.3)
[2021-06-07 09:21] LABS: BLOOD UREA NITROGEN 28.5 mg/dL (7-18); CALCIUM 8.6 mg/dL (8.5-10.1)
[2021-06-07] MEDS: ISOSORBIDE MONONITRATE 30 MG TAB.SR.24H (FP) PO SCH (09:59)
[2021-06-07] MEDS: ASPIRIN COATED 81 MG TABLET.EC PO SCH (09:59)
[2021-06-07] MEDS: PANTOPRAZOLE 40 MG TABLET PO SCH ×2 (10:00→21:22)
[2021-06-07] MEDS ORDERED: PHYTONADIONE 10 MG/1 ML AMP SQ ONE (10:30)
[2021-06-07] MEDS: ATORVASTATIN CA 80 MG TABLET (FP) PO SCH (21:22)
[2021-06-08] MEDS ORDERED: INSULIN (NOVOLOG) ASPART 100 UNITS/ML 10ML VIAL ONE ×2 (05:26→11:20)
[2021-06-08] MEDS: LEVOTHYROXINE NA 100 MCG TABLET (FP) PO SCH (06:05)
[2021-06-08] MEDS: INSULIN SLIDING SCALE (NOVOLOG) 1 VIAL SQ SCH ×3 (06:05→17:30)
[2021-06-08 08:57] LABS: BASO % 0.5 % (0-2.0); EOS % 0.7 % (0-4.5); HEMATOCRIT 36.1 % (32.4-45.2); LYMPH % 23.4 % (8-40); MCH 31.8 pg (25.7-33.7); MCHC 33.4 g/dl (32.0-36.0); MEAN CELL VOLUME 95.1 fl (80-96); MEAN PLT VOLUME 8.4 fl (7.5-11.1); MONO % 14.4 % (3.8-10.2); PLATELET COUNT 161 10^3/uL (134-434); RBC 3.79 M/mm3 (3.60-5.2); RDW 16.6 % (11.6-15.6); WHITE BLOOD COUNT 2.7 K/mm3 (4.0-10.0)
[2021-06-08 09:21] LABS: CALCIUM 7.5 mg/dL (8.5-10.1)
[2021-06-08 09:22] LABS: BILIRUBIN,TOTAL 0.6 mg/dL (0.2-1); BLOOD UREA NITROGEN 15.2 mg/dL (7-18); MAGNESIUM 1.8 mg/dL (1.8-2.4); TOT PROT 5.4 g/dl (6.4-8.2)
[2021-06-08 09:23] LABS: PHOSPHOROUS 1.7 mg/dL (2.5-4.9)
[2021-06-08 09:24] LABS: CREATININE 2.5 mg/dL (0.55-1.3)
[2021-06-08 09:30] LABS: ALBUMIN 2.1 g/dl (3.4-5.0)
[2021-06-08] MEDS ORDERED: SIMETHICONE 80 MG TAB.CHEW (FP) PO PRN (10:36)
[2021-06-08] MEDS: ASPIRIN COATED 81 MG TABLET.EC PO SCH (10:47)
[2021-06-08] MEDS: ISOSORBIDE MONONITRATE 30 MG TAB.SR.24H (FP) PO SCH (10:47)
[2021-06-08] MEDS: PANTOPRAZOLE 40 MG TABLET PO SCH (10:47)
[2021-06-08] MEDS ORDERED: SODIUM CHLORIDE 250 ML IV PRN (10:57)
[2021-06-08 15:39] VITALS: BP 117/64; PULSE 101; TEMP 98.2
[2021-06-09] MEDS ORDERED: LISINOPRIL 5 MG TABLET PO SCH (10:00)
== END 2021-06-08 18:21 | disposition home or self-care (01) | DRG 637 ==
LOC: JER 01:58 → JERBED 05:18 → JICU 10:23 → J8W 05-23 15:31
PROVIDERS: ADMIT Internal Medicine; ATTEND Internal Medicine
PROC: 0DJ08ZZ Inspection of Upper Intestinal Tract, Via Natural or Artificial Opening Endoscopic (ICD-10-PCS; 2021-05-28)
PROC: 5A1D70Z Performance of Urinary Filtration, Intermittent, Less than 6 Hours Per Day (ICD-10-PCS; 2021-06-07)
PROC: 0DBH8ZX Excision of Cecum, Via Natural or Artificial Opening Endoscopic, Diagnostic (ICD-10-PCS; principal; 2021-06-07 12:15)
DX: E11.00 Type 2 diabetes mellitus with hyperosmolarity without nonketotic hyperglycemic-hyperosmolar coma (NKHHC) (principal); N18.6 End stage renal disease; K29.71 Gastritis, unspecified, with bleeding; E87.0 Hyperosmolality and hypernatremia; D68.2 Hereditary deficiency of other clotting factors; I50.22 Chronic systolic (congestive) heart failure; I13.2 Hypertensive heart and chronic kidney disease with heart failure and with stage 5 chronic kidney disease, or end stage renal disease; N17.9 Acute kidney failure, unspecified; I24.8 Other forms of acute ischemic heart disease; J90 Pleural effusion, not elsewhere classified; E11.65 Type 2 diabetes mellitus with hyperglycemia; G20 Parkinson's disease; E03.9 Hypothyroidism, unspecified; I16.0 Hypertensive urgency; D63.1 Anemia in chronic kidney disease; E78.5 Hyperlipidemia, unspecified; E78.00 Pure hypercholesterolemia, unspecified; I25.10 Atherosclerotic heart disease of native coronary artery without angina pectoris; K21.00 Gastro-esophageal reflux disease with esophagitis, without bleeding; I27.20 Pulmonary hypertension, unspecified; I73.9 Peripheral vascular disease, unspecified; D69.6 Thrombocytopenia, unspecified; K57.90 Diverticulosis of intestine, part unspecified, without perforation or abscess without bleeding; K64.8 Other hemorrhoids; K55.20 Angiodysplasia of colon without hemorrhage; Z95.1 Presence of aortocoronary bypass graft; D12.0 Benign neoplasm of cecum
CPT/HCPCS: 36415; 70450-TC; 71045-TC-FY; 72125-TC; 80048; 80053; 80061; 81003; 82010; 82272; 82550; 82607; 82746; 82803; 82947; 82962; 83036; 83690; 83735; 84100; 84484; 85025; 85610; 85730; 86803; 86850; 86900; 86901; 87040; 87086; 87340; 87389; 87522; 88104; 88305-TC; 93005; 93010; 97116-GP; 97161-GP; 99285-25; C9803-CS; J1644; J3480; Q5106; U0003; U0005

== ENCOUNTER 2021-06-11 09:04 | Inpatient (IN) | payer OTHER ==
[2021-06-11] MEDS ORDERED: LACTATED RINGERS SOLUTION 1000 ML INFUS.BAG IV ONE (09:18)
[2021-06-11] MEDS ORDERED: SODIUM CHLORIDE 0.9% 500 ML INFUS.BAG IV ONE ×2 (09:18→14:14)
[2021-06-11 10:28] LABS: BASO % 0.2 % (0-2.0); EOS % 0.1 % (0-4.5); HEMATOCRIT 39.9 % (32.4-45.2); HEMOGLOBIN 12.7 GM/dL (10.7-15.3); LYMPH % 22.4 % (8-40); MCH 31.1 pg (25.7-33.7); MCHC 31.9 g/dl (32.0-36.0); MEAN CELL VOLUME 97.6 fl (80-96); MEAN PLT VOLUME 9.2 fl (7.5-11.1); MONO % 12.4 % (3.8-10.2); NEUT % 64.9 % (42.8-82.8); PLATELET COUNT 175 10^3/uL (134-434); RBC 4.09 M/mm3 (3.60-5.2); RDW 16.9 % (11.6-15.6)
[2021-06-11 10:34] LABS: EPI CELLS >36 /uL (0-25.1); HYALINE CASTS 3 /uL (0-3.1); URINE APPEARANCE CLOUDY; URINE BACTERIA >9,000 /uL (0-1359); URINE BILIRUBIN NEGATIVE (NEGATIVE); URINE COLOR YELLOW; URINE GLUCOSE (UA) 3+ (NEGATIVE); URINE KETONE TRACE (NEGATIVE); URINE LEUK ESTERASE NEGATIVE (NEGATIVE); URINE NITRITE NEGATIVE (NEGATIVE); URINE PROTEIN 3+ (NEGATIVE); URINE RBC 3153 /uL (0-23.9)
[2021-06-11 10:55] LABS: MAGNESIUM 2.3 mg/dL (1.8-2.4)
[2021-06-11 11:00] LABS: PHOSPHOROUS 4.7 mg/dL (2.5-4.9)
[2021-06-11 11:03] LABS: LACTIC ACID 6.1 mmol/L (0.4-2.0)
[2021-06-11 11:14] LABS: URINE WBC 45.6 /uL (0-25.8)
[2021-06-11] MEDS ORDERED: SODIUM CHLORIDE 250 ML IV PRN (12:15)
[2021-06-11 13:08] LABS: CHLORIDE 103 mmol/L (98-107); SODIUM 140 mmol/L (136-145)
[2021-06-11 13:09] LABS: CALCIUM 8.4 mg/dL (8.5-10.1)
[2021-06-11 13:11] LABS: ANION GAP 16 MMOL/L (8-16); CO2 22 mmol/L (21-32)
[2021-06-11 13:13] LABS: CREATININE 4.6 mg/dL (0.55-1.3); SGOT/AST 47 U/L (15-37); SGPT/ALT 33 U/L (13-61)
[2021-06-11 13:15] LABS: BILIRUBIN,TOTAL 1.4 mg/dL (0.2-1); TOT PROT 6.2 g/dl (6.4-8.2)
[2021-06-11 13:20] LABS: ALBUMIN 2.7 g/dl (3.4-5.0); ALK PHOS 125 U/L (45-117); GLUCOSE,RANDOM 556 mg/dL (74-106)
[2021-06-11] MEDS ORDERED: INSULIN DRIP - PLEASE ORDER UNDER SETS NR ONE (13:21)
[2021-06-11] MEDS ORDERED: DEXTROSE 50%-WATER - 25 GM/50 ML VIAL IVPUSH PRN (13:26)
[2021-06-11] MEDS ORDERED: INSULIN REGULAR HUMAN 100 UNITS/ML *VIAL* (FOR IVP) IVPUSH ONE (13:26)
[2021-06-11] MEDS ORDERED: INSULIN REGULAR 100 UNITS in SODIUM CHLORIDE 99 ML IVPB SCH (13:30)
[2021-06-11 13:50] LABS: CHLORIDE 103 mmol/L (98-107); SODIUM 139 mmol/L (136-145)
[2021-06-11 13:58] LABS: ALBUMIN 2.7 g/dl (3.4-5.0); ANION GAP 16 MMOL/L (8-16); BLOOD UREA NITROGEN 36.6 mg/dL (7-18); CALCIUM 8.5 mg/dL (8.5-10.1); CO2 21 mmol/L (21-32)
[2021-06-11 14:01] LABS: CREATININE 4.5 mg/dL (0.55-1.3); SGOT/AST 60 U/L (15-37); SGPT/ALT 37 U/L (13-61)
[2021-06-11 14:02] LABS: BILIRUBIN,TOTAL 1.4 mg/dL (0.2-1); TOT PROT 6.3 g/dl (6.4-8.2)
[2021-06-11 14:04] LABS: ALK PHOS 129 U/L (45-117)
[2021-06-11 14:16] LABS: GLUCOSE,RANDOM 532 mg/dL (74-106)
[2021-06-11 14:50] LABS: VENOUS BASE EXCESS -9.6 mmol/L (-2-2); VENOUS O2 SATURATION 98.6 % (70-80); VENOUS PCO2 17.5 mmHg (38-52); VENOUS PH 7.447 (7.310-7.410)
[2021-06-11 15:09] LABS: INR 2.52 (0.83-1.09); PROTHROMBIN TIME (PATIENT) 29.3 SEC (9.7-13.0)
[2021-06-11 15:12] LABS: ACTIVATED PTT 31.8 SECONDS (25.2-36.5)
[2021-06-11] MEDS ORDERED: INSULIN (LEVEMIR) 100 UNITS/ML UNITS SQ ONE (16:22)
[2021-06-11] MEDS ORDERED: SODIUM CHLORIDE 0.45% 1,000 ML IV SCH (16:45)
[2021-06-11 16:50] LABS: VENOUS BASE EXCESS -5.1 mmol/L (-2-2); VENOUS PCO2 43.3 mmHg (38-52); VENOUS PH 7.304 (7.310-7.410)
[2021-06-11 17:17] LABS: ALBUMIN 3.1 g/dl (3.4-5.0); BLOOD UREA NITROGEN 39.8 mg/dL (7-18); CALCIUM 8.5 mg/dL (8.5-10.1)
[2021-06-11 17:19] LABS: CREATININE 4.3 mg/dL (0.55-1.3)
[2021-06-11 17:22] LABS: BILIRUBIN,TOTAL 0.8 mg/dL (0.2-1); TOT PROT 6.5 g/dl (6.4-8.2)
[2021-06-11 17:25] LABS: LACTIC ACID 5.1 mmol/L (0.4-2.0)
[2021-06-11] MEDS ORDERED: SODIUM CHLORIDE 0.45%/POT 20 MEQ/1,000 ML INFUS.BAG IV SCH (19:25)
[2021-06-11 20:49] LABS: BLOOD UREA NITROGEN 41.1 mg/dL (7-18); CALCIUM 8.2 mg/dL (8.5-10.1); CREATININE 4.3 mg/dL (0.55-1.3)
[2021-06-11] MEDS ORDERED: CHLORHEXIDINE GLUCONATE 4% CLEANSER FOR DECOLONIZATION TP SCH (22:00)
[2021-06-11] MEDS ORDERED: MUPIROCIN 2% TOPICAL OINTMENT FOR DECOLONIZATION NS SCH (22:00)
[2021-06-11 23:44] VITALS: BMI 23.4
[2021-06-12] MEDS ORDERED: DEXTROSE 50%-WATER 25 GM/50 ML DISP.SYRIN ONE ×2 (00:35→03:50)
[2021-06-12] MEDS: hydrALAZINE HCL 10 MG TABLET PO SCH ×3 (00:42→21:24)
[2021-06-12] MEDS: HEPARIN NA (PORCINE) 5,000 UNITS/ML 1ML VIAL SQ SCH ×4 (00:42→21:24)
[2021-06-12] MEDS: ATORVASTATIN CA 80 MG TABLET (FP) PO SCH ×2 (00:42→21:24)
[2021-06-12] MEDS: MUPIROCIN 2% TOPICAL OINTMENT 22 GM TUBE TP SCH ×4 (01:03→21:24)
[2021-06-12] MEDS: CARBIDOPA/LEVODOPA 25/100 TABLET (FP) PO SCH ×4 (01:04→21:25)
[2021-06-12] MEDS ORDERED: DEXTROSE 50%-WATER - 25 GM/50 ML VIAL IVPUSH ONE ×2 (03:48→06:25)
[2021-06-12] MEDS: KCL 10 MEQ IVPB 10 MEQ/100 ML INFUS.BAG IVPB SCH ×2 (04:13→06:02)
[2021-06-12 06:04] LABS: EPI CELLS 35 /uL (0-25.1); HYALINE CASTS 3 /uL (0-3.1); URINE APPEARANCE TURBID; URINE BACTERIA >9,000 /uL (0-1359); URINE BILIRUBIN NEGATIVE (NEGATIVE); URINE COLOR DK YELLOW; URINE GLUCOSE (UA) 1+ (NEGATIVE); URINE KETONE TRACE (NEGATIVE); URINE LEUK ESTERASE 1+ (NEGATIVE); URINE NITRITE NEGATIVE (NEGATIVE); URINE PROTEIN 3+ (NEGATIVE); URINE RBC 938 /uL (0-23.9); URINE WBC 343 /uL (0-25.8)
[2021-06-12] MEDS: LEVOTHYROXINE NA 100 MCG TABLET (FP) PO SCH (06:09)
[2021-06-12] MEDS ORDERED: DEXTROSE 4 GM TAB.CHEW PO ONE (06:32)
[2021-06-12] MEDS ORDERED: DEXTROSE 4 GM TAB.CHEW PO PRN (06:34)
[2021-06-12 08:10] LABS: ANION GAP 10 MMOL/L (8-16); CALCIUM 8.2 mg/dL (8.5-10.1); CHLORIDE 107 mmol/L (98-107); CO2 24 mmol/L (21-32); SODIUM 141 mmol/L (136-145)
[2021-06-12 08:11] LABS: BLOOD UREA NITROGEN 42.1 mg/dL (7-18)
[2021-06-12 08:18] LABS: GLUCOSE,RANDOM 40 mg/dL (74-106)
[2021-06-12] MEDS: SEVELAMER CARBONATE 800 MG TAB (FP) PO SCH ×3 (09:56→18:03)
[2021-06-12] MEDS: RIVASTIGMINE TARTRATE 1.5 MG CAPSULE PO SCH ×2 (09:56→18:04)
[2021-06-12] MEDS: SPIRONOLACTONE 25 MG TABLET PO SCH (09:56)
[2021-06-12] MEDS: ASPIRIN COATED 81 MG TABLET.EC PO SCH (09:57)
[2021-06-12] MEDS: ISOSORBIDE MONONITRATE 30 MG TAB.SR.24H (FP) PO SCH (09:57)
[2021-06-12] MEDS: LISINOPRIL 5 MG TABLET PO SCH (09:58)
[2021-06-12] MEDS: amLODIPine BESYLATE 2.5 MG TABLET (FP) PO SCH (09:58)
[2021-06-12] MEDS ORDERED: INSULIN (LEVEMIR) 100 UNITS/ML UNITS SQ SCH (10:00)
[2021-06-12 10:53] LABS: BASO % 0.3 % (0-2.0); EOS % 0.8 % (0-4.5); HEMATOCRIT 39.4 % (32.4-45.2); HEMOGLOBIN 12.8 GM/dL (10.7-15.3); LYMPH % 17.9 % (8-40); MCH 30.8 pg (25.7-33.7); MCHC 32.4 g/dl (32.0-36.0); MEAN PLT VOLUME 8.8 fl (7.5-11.1); MONO % 13.4 % (3.8-10.2); NEUT % 67.6 % (42.8-82.8); PLATELET COUNT 224 10^3/uL (134-434); RBC 4.15 M/mm3 (3.60-5.2); RDW 16.7 % (11.6-15.6); WHITE BLOOD COUNT 4.2 K/mm3 (4.0-10.0)
[2021-06-12 11:18] LABS: CALCIUM 8.3 mg/dL (8.5-10.1)
[2021-06-12 11:19] LABS: MAGNESIUM 1.8 mg/dL (1.8-2.4)
[2021-06-12 11:21] LABS: BILIRUBIN,TOTAL 0.6 mg/dL (0.2-1); CREATININE 4.1 mg/dL (0.55-1.3); TOT PROT 5.5 g/dl (6.4-8.2)
[2021-06-12 11:26] LABS: ALBUMIN 2.2 g/dl (3.4-5.0)
[2021-06-13] MEDS: MUPIROCIN 2% TOPICAL OINTMENT 22 GM TUBE TP SCH ×3 (05:58→21:27)
[2021-06-13] MEDS: HEPARIN NA (PORCINE) 5,000 UNITS/ML 1ML VIAL SQ SCH ×3 (06:23→21:27)
[2021-06-13] MEDS: CARBIDOPA/LEVODOPA 25/100 TABLET (FP) PO SCH ×3 (06:23→21:27)
[2021-06-13] MEDS: LEVOTHYROXINE NA 100 MCG TABLET (FP) PO SCH (06:23)
[2021-06-13] MEDS: SEVELAMER CARBONATE 800 MG TAB (FP) PO SCH ×3 (09:43→17:48)
[2021-06-13] MEDS: LISINOPRIL 5 MG TABLET PO SCH (09:44)
[2021-06-13] MEDS: ISOSORBIDE MONONITRATE 30 MG TAB.SR.24H (FP) PO SCH (09:44)
[2021-06-13] MEDS: hydrALAZINE HCL 10 MG TABLET PO SCH ×2 (09:44→21:27)
[2021-06-13] MEDS: ASPIRIN COATED 81 MG TABLET.EC PO SCH (09:45)
[2021-06-13] MEDS: SPIRONOLACTONE 25 MG TABLET PO SCH (09:45)
[2021-06-13] MEDS: amLODIPine BESYLATE 2.5 MG TABLET (FP) PO SCH (09:45)
[2021-06-13] MEDS ORDERED: cefTRIAXone SODIUM 1 GM VIAL ONE (11:56)
[2021-06-13] MEDS ORDERED: DEXTROSE 5%-WATER - 50 ML IVPB ONE (11:56)
[2021-06-13] MEDS: CEFTRIAXONE 1 GM in DEXTROSE 5%-WATER - 50 ML IVPB SCH (11:58)
[2021-06-13] MEDS: RIVASTIGMINE TARTRATE 1.5 MG CAPSULE PO SCH ×2 (11:59→17:49)
[2021-06-13] MEDS: LACTOBACILLUS ACIDOPHILUS 1 TABLET PO SCH (21:27)
[2021-06-13] MEDS: ATORVASTATIN CA 80 MG TABLET (FP) PO SCH (21:27)
[2021-06-13] MEDS: INSULIN (LEVEMIR) 100 UNITS/ML UNITS SQ SCH (23:15)
[2021-06-14] MEDS: HEPARIN NA (PORCINE) 5,000 UNITS/ML 1ML VIAL SQ SCH ×3 (05:48→22:02)
[2021-06-14] MEDS: MUPIROCIN 2% TOPICAL OINTMENT 22 GM TUBE TP SCH ×3 (05:48→22:08)
[2021-06-14] MEDS: CARBIDOPA/LEVODOPA 25/100 TABLET (FP) PO SCH ×3 (05:49→22:02)
[2021-06-14] MEDS: LEVOTHYROXINE NA 100 MCG TABLET (FP) PO SCH (06:11)
[2021-06-14] MEDS: INSULIN (LEVEMIR) 100 UNITS/ML UNITS SQ SCH ×2 (06:11→22:07)
[2021-06-14] MEDS: INSULIN SLIDING SCALE (NOVOLOG) 1 VIAL SQ SCH ×3 (06:14→17:01)
[2021-06-14] MEDS ORDERED: INSULIN (LEVEMIR) 100 UNITS/ML UNITS SQ SCH ×2 (07:00→22:00)
[2021-06-14] MEDS ORDERED: INSULIN SLIDING SCALE (NOVOLOG) 1 VIAL SQ SCH (07:00)
[2021-06-14] MEDS ORDERED: DEXTROSE 5%-WATER - 50 ML IVPB ONE (09:36)
[2021-06-14] MEDS ORDERED: cefTRIAXone SODIUM 1 GM VIAL ONE (09:36)
[2021-06-14] MEDS: ISOSORBIDE MONONITRATE 30 MG TAB.SR.24H (FP) PO SCH (09:42)
[2021-06-14] MEDS: SPIRONOLACTONE 25 MG TABLET PO SCH (09:42)
[2021-06-14] MEDS: LISINOPRIL 5 MG TABLET PO SCH (09:42)
[2021-06-14] MEDS: hydrALAZINE HCL 10 MG TABLET PO SCH ×2 (09:42→22:02)
[2021-06-14] MEDS: ASPIRIN COATED 81 MG TABLET.EC PO SCH (09:42)
[2021-06-14] MEDS: LACTOBACILLUS ACIDOPHILUS 1 TABLET PO SCH (09:43)
[2021-06-14] MEDS: amLODIPine BESYLATE 2.5 MG TABLET (FP) PO SCH (09:43)
[2021-06-14] MEDS: SEVELAMER CARBONATE 800 MG TAB (FP) PO SCH ×3 (09:43→17:05)
[2021-06-14] MEDS: CEFTRIAXONE 1 GM in DEXTROSE 5%-WATER - 50 ML IVPB SCH (09:45)
[2021-06-14] MEDS ORDERED: SODIUM CHLORIDE 250 ML IV PRN (09:52)
[2021-06-14] MEDS: RIVASTIGMINE TARTRATE 1.5 MG CAPSULE PO SCH ×2 (10:00→17:05)
[2021-06-14 14:05] LABS: BASO % 0.5 % (0-2.0); EOS % 1.5 % (0-4.5); HEMATOCRIT 37.7 % (32.4-45.2); HEMOGLOBIN 12.4 GM/dL (10.7-15.3); LYMPH % 27.5 % (8-40); MCHC 32.8 g/dl (32.0-36.0); MEAN CELL VOLUME 94.5 fl (80-96); MEAN PLT VOLUME 8.5 fl (7.5-11.1); MONO % 13.6 % (3.8-10.2); NEUT % 56.9 % (42.8-82.8); PLATELET COUNT 228 10^3/uL (134-434); RBC 3.99 M/mm3 (3.60-5.2); RDW 16.2 % (11.6-15.6); WHITE BLOOD COUNT 3.5 K/mm3 (4.0-10.0)
[2021-06-14 14:34] LABS: ALBUMIN 2.2 g/dl (3.4-5.0); CALCIUM 8.3 mg/dL (8.5-10.1)
[2021-06-14 14:35] LABS: BLOOD UREA NITROGEN 18.1 mg/dL (7-18)
[2021-06-14 14:39] LABS: BILIRUBIN,TOTAL 0.6 mg/dL (0.2-1); TOT PROT 5.4 g/dl (6.4-8.2)
[2021-06-14 14:41] LABS: CREATININE 1.9 mg/dL (0.55-1.3)
[2021-06-14] MEDS: ATORVASTATIN CA 80 MG TABLET (FP) PO SCH (22:02)
[2021-06-15] MEDS: CARBIDOPA/LEVODOPA 25/100 TABLET (FP) PO SCH ×3 (06:32→21:25)
[2021-06-15] MEDS: HEPARIN NA (PORCINE) 5,000 UNITS/ML 1ML VIAL SQ SCH ×3 (06:32→21:25)
[2021-06-15] MEDS: LEVOTHYROXINE NA 100 MCG TABLET (FP) PO SCH (06:32)
[2021-06-15] MEDS: MUPIROCIN 2% TOPICAL OINTMENT 22 GM TUBE TP SCH ×3 (06:33→21:25)
[2021-06-15] MEDS: INSULIN SLIDING SCALE (NOVOLOG) 1 VIAL SQ SCH ×3 (06:48→17:44)
[2021-06-15] MEDS: INSULIN (LEVEMIR) 100 UNITS/ML UNITS SQ SCH ×2 (06:49→21:32)
[2021-06-15] MEDS ORDERED: DEXTROSE 5%-WATER - 50 ML IVPB ONE (09:21)
[2021-06-15] MEDS ORDERED: cefTRIAXone SODIUM 1 GM VIAL ONE (09:21)
[2021-06-15] MEDS: CEFTRIAXONE 1 GM in DEXTROSE 5%-WATER - 50 ML IVPB SCH (09:24)
[2021-06-15] MEDS: ASPIRIN COATED 81 MG TABLET.EC PO SCH (09:26)
[2021-06-15] MEDS: LACTOBACILLUS ACIDOPHILUS 1 TABLET PO SCH (09:26)
[2021-06-15] MEDS: SPIRONOLACTONE 25 MG TABLET PO SCH (09:26)
[2021-06-15] MEDS: hydrALAZINE HCL 10 MG TABLET PO SCH ×2 (09:26→21:25)
[2021-06-15] MEDS: SEVELAMER CARBONATE 800 MG TAB (FP) PO SCH ×3 (09:26→17:45)
[2021-06-15] MEDS: amLODIPine BESYLATE 2.5 MG TABLET (FP) PO SCH (09:27)
[2021-06-15] MEDS: ISOSORBIDE MONONITRATE 30 MG TAB.SR.24H (FP) PO SCH (09:27)
[2021-06-15] MEDS: LISINOPRIL 5 MG TABLET PO SCH (09:27)
[2021-06-15] MEDS: RIVASTIGMINE TARTRATE 1.5 MG CAPSULE PO SCH ×2 (09:35→17:44)
[2021-06-15] MEDS ORDERED: SODIUM CHLORIDE 250 ML IV PRN (16:50)
[2021-06-15] MEDS ORDERED: BISMUTH SUBSALICYLATE 524 MG/30 ML PO PRN (16:52)
[2021-06-15 18:19] LABS: ALBUMIN 2.1 g/dl (3.4-5.0); BLOOD UREA NITROGEN 22.4 mg/dL (7-18); CALCIUM 8.3 mg/dL (8.5-10.1)
[2021-06-15 18:22] LABS: CREATININE 2.7 mg/dL (0.55-1.3)
[2021-06-15 18:24] LABS: BILIRUBIN,TOTAL 0.4 mg/dL (0.2-1); TOT PROT 5.2 g/dl (6.4-8.2)
[2021-06-15] MEDS: ATORVASTATIN CA 80 MG TABLET (FP) PO SCH (21:25)
[2021-06-16] MEDS: CARBIDOPA/LEVODOPA 25/100 TABLET (FP) PO SCH ×2 (06:17→14:20)
[2021-06-16] MEDS: HEPARIN NA (PORCINE) 5,000 UNITS/ML 1ML VIAL SQ SCH ×2 (06:17→14:19)
[2021-06-16] MEDS: LEVOTHYROXINE NA 100 MCG TABLET (FP) PO SCH (06:17)
[2021-06-16] MEDS: INSULIN SLIDING SCALE (NOVOLOG) 1 VIAL SQ SCH ×3 (06:23→17:33)
[2021-06-16] MEDS: INSULIN (LEVEMIR) 100 UNITS/ML UNITS SQ SCH (06:23)
[2021-06-16] MEDS: SEVELAMER CARBONATE 800 MG TAB (FP) PO SCH ×3 (08:00→17:52)
[2021-06-16] MEDS: hydrALAZINE HCL 10 MG TABLET PO SCH (08:00)
[2021-06-16] MEDS: RIVASTIGMINE TARTRATE 1.5 MG CAPSULE PO SCH ×2 (08:00→17:53)
[2021-06-16 10:12] LABS: BASO % 0.5 % (0-2.0); HEMOGLOBIN 11.9 GM/dL (10.7-15.3); MCH 30.9 pg (25.7-33.7); MCHC 32.3 g/dl (32.0-36.0); MEAN CELL VOLUME 95.7 fl (80-96); MEAN PLT VOLUME 8.8 fl (7.5-11.1); NEUT % 58.5 % (42.8-82.8); PLATELET COUNT 207 10^3/uL (134-434); RBC 3.86 M/mm3 (3.60-5.2); RDW 16.2 % (11.6-15.6); WHITE BLOOD COUNT 4.3 K/mm3 (4.0-10.0)
[2021-06-16 10:36] LABS: CALCIUM 7.8 mg/dL (8.5-10.1)
[2021-06-16 10:37] LABS: BLOOD UREA NITROGEN 23.7 mg/dL (7-18)
[2021-06-16 10:41] LABS: CREATININE 2.8 mg/dL (0.55-1.3)
[2021-06-16] MEDS ORDERED: cefTRIAXone SODIUM 1 GM VIAL ONE (11:20)
[2021-06-16] MEDS ORDERED: DEXTROSE 5%-WATER - 50 ML IVPB ONE (11:20)
[2021-06-16] MEDS: CEFTRIAXONE 1 GM in DEXTROSE 5%-WATER - 50 ML IVPB SCH (11:55)
[2021-06-16] MEDS: ASPIRIN COATED 81 MG TABLET.EC PO SCH (11:56)
[2021-06-16] MEDS: SPIRONOLACTONE 25 MG TABLET PO SCH (11:56)
[2021-06-16] MEDS: LISINOPRIL 5 MG TABLET PO SCH (11:56)
[2021-06-16] MEDS: ISOSORBIDE MONONITRATE 30 MG TAB.SR.24H (FP) PO SCH (11:56)
[2021-06-16] MEDS: amLODIPine BESYLATE 2.5 MG TABLET (FP) PO SCH (11:57)
[2021-06-16] MEDS: LACTOBACILLUS ACIDOPHILUS 1 TABLET PO SCH (11:57)
[2021-06-16 13:44] VITALS: TEMP 97.8
[2021-06-16] MEDS: MUPIROCIN 2% TOPICAL OINTMENT 22 GM TUBE TP SCH (14:19)
[2021-06-16 18:44] VITALS: BP 114/59; PULSE 78
== END 2021-06-16 19:11 | disposition home or self-care (01) | DRG 637 ==
LOC: JER 09:04 → JERBED 16:03 → J4W 22:17
PROVIDERS: ADMIT Internal Medicine Pulmonary Disease
PROC: 5A1D70Z Performance of Urinary Filtration, Intermittent, Less than 6 Hours Per Day (ICD-10-PCS; principal; 2021-06-12)
PROC: 5A1D70Z Performance of Urinary Filtration, Intermittent, Less than 6 Hours Per Day (ICD-10-PCS; 2021-06-14)
PROC: 5A1D70Z Performance of Urinary Filtration, Intermittent, Less than 6 Hours Per Day (ICD-10-PCS; 2021-06-16)
DX: E11.10 Type 2 diabetes mellitus with ketoacidosis without coma (principal); N18.6 End stage renal disease; U07.1 COVID-19; I13.0 Hypertensive heart and chronic kidney disease with heart failure and stage 1 through stage 4 chronic kidney disease, or unspecified chronic kidney disease; I50.22 Chronic systolic (congestive) heart failure; E87.2 Acidosis; I24.8 Other forms of acute ischemic heart disease; D68.2 Hereditary deficiency of other clotting factors; N39.0 Urinary tract infection, site not specified; I25.10 Atherosclerotic heart disease of native coronary artery without angina pectoris; E11.65 Type 2 diabetes mellitus with hyperglycemia; E11.22 Type 2 diabetes mellitus with diabetic chronic kidney disease; K21.9 Gastro-esophageal reflux disease without esophagitis; K76.0 Fatty (change of) liver, not elsewhere classified; I27.20 Pulmonary hypertension, unspecified; G20 Parkinson's disease; K44.9 Diaphragmatic hernia without obstruction or gangrene; K21.00 Gastro-esophageal reflux disease with esophagitis, without bleeding; M10.9 Gout, unspecified; E86.0 Dehydration; M54.30 Sciatica, unspecified side; D63.1 Anemia in chronic kidney disease; E78.5 Hyperlipidemia, unspecified; R31.9 Hematuria, unspecified; Z91.14 Patient's other noncompliance with medication regimen; Z95.1 Presence of aortocoronary bypass graft
CPT/HCPCS: 36415; 70450-TC; 71045-TC-FY; 80048; 80053; 81003; 82010; 82803; 82962; 83036; 83605; 83735; 84100; 84484; 85025; 85610; 85730; 87040; 87086; 87186; 93005; 93010; 97116-GP; 97162-GP; 99291; C9803-CS; J1644; U0003; U0005

== ENCOUNTER 2021-07-04 21:01 | Inpatient (IN) | payer OTHER ==
[2021-07-04] MEDS ORDERED: ONDANSETRON 4 MG/2 ML VIAL IVPUSH ONE (21:18)
[2021-07-04] MEDS ORDERED: ACETAMINOPHEN 1000 MG/100 ML BAG IVPB ONE (21:18)
[2021-07-04] MEDS ORDERED: MAG HYDROX/AL HYDROX/SIMETH 30 ML UNIT-DOSE CUP PO ONE (21:19)
[2021-07-04] MEDS ORDERED: FAMOTIDINE 20 MG/50 ML IVPB 20 MG/50 ML MG IVPB ONE (21:19)
[2021-07-04] MEDS ORDERED: ONDANSETRON 4 MG/2 ML VIAL ONE (21:22)
[2021-07-04] MEDS ORDERED: ACETAMINOPHEN INJECTION 100 ML IVPB ONE (21:22)
[2021-07-04] MEDS ORDERED: MAG HYDROX/AL HYDROX/SIMETH 30 ML UNIT-DOSE CUP ONE (21:22)
[2021-07-04] MEDS ORDERED: morphine CARPU-JECT 4 MG/1 ML DISP.SYRIN IVPUSH ONE (21:39)
[2021-07-04] MEDS ORDERED: morphine SULFATE 4 MG/ML VIAL ONE (21:39)
[2021-07-04] MEDS ORDERED: FAMOTIDINE 10 MG/ML VIAL IVPB ONE (21:42)
[2021-07-04 21:50] LABS: BASO % 0.4 % (0-2.0); EOS % 0.9 % (0-4.5); HEMATOCRIT 37.3 % (32.4-45.2); HEMOGLOBIN 11.8 GM/dL (10.7-15.3); MCH 31.1 pg (25.7-33.7); MCHC 31.7 g/dl (32.0-36.0); MEAN CELL VOLUME 98.3 fl (80-96); MEAN PLT VOLUME 8.9 fl (7.5-11.1); NEUT % 65.7 % (42.8-82.8); PLATELET COUNT 177 10^3/uL (134-434); RBC 3.79 M/mm3 (3.60-5.2); RDW 16.4 % (11.6-15.6); VENOUS BASE EXCESS -0.2 mmol/L (-2-2); VENOUS PCO2 43.1 mmHg (38-52); VENOUS PH 7.382 (7.310-7.410); WHITE BLOOD COUNT 4.1 K/mm3 (4.0-10.0)
[2021-07-04 22:07] LABS: CHLORIDE 96 mmol/L (98-107); SODIUM 135 mmol/L (136-145)
[2021-07-04 22:09] LABS: CALCIUM 9.3 mg/dL (8.5-10.1)
[2021-07-04 22:10] LABS: ALBUMIN 3.7 g/dl (3.4-5.0); ANION GAP 10 MMOL/L (8-16); BLOOD UREA NITROGEN 27.5 mg/dL (7-18); CO2 29 mmol/L (21-32)
[2021-07-04 22:13] LABS: CREATININE 3.8 mg/dL (0.55-1.3); SGOT/AST 32 U/L (15-37); SGPT/ALT 35 U/L (13-61)
[2021-07-04 22:14] LABS: BILIRUBIN,TOTAL 0.4 mg/dL (0.2-1); TOT PROT 7.4 g/dl (6.4-8.2)
[2021-07-04 22:15] LABS: ALK PHOS 147 U/L (45-117)
[2021-07-04 22:16] LABS: GLUCOSE,RANDOM 532 mg/dL (74-106)
[2021-07-04] MEDS ORDERED: INSULIN REGULAR HUMAN 100 UNITS/ML *VIAL IVPUSH ONE (22:19)
[2021-07-04] MEDS ORDERED: SODIUM CHLORIDE 0.9% 500 ML INFUS.BAG IV ONE (22:19)
[2021-07-04] MEDS ORDERED: PROCHLORPERAZINE INJECTION 10 MG/2 ML VIAL IVPB ONE (22:32)
[2021-07-04] MEDS ORDERED: PROCHLORPERAZINE INJECTION 10 MG/2 ML VIAL ONE (22:39)
[2021-07-05] MEDS ORDERED: ASPIRIN 81 MG CHEWABLE TABLETS PO ONE (01:42)
[2021-07-05] MEDS ORDERED: ASPIRIN 81 MG CHEWABLE TABLETS ONE (01:42)
[2021-07-05] MEDS ORDERED: ACETAMINOPHEN 1000 MG/100 ML BAG IVPB PRN (03:16)
[2021-07-05] MEDS ORDERED: PROCHLORPERAZINE INJECTION 10 MG/2 ML VIAL IVPB PRN (03:18)
[2021-07-05] MEDS ORDERED: INSULIN (NOVOLOG) ASPART 100 UNITS/ML 10ML VIAL SQ ONE (03:47)
[2021-07-05] MEDS ORDERED: HEPARIN NA (PORCINE) 5,000 UNITS/ML 1ML VIAL IVPUSH PRN (04:33)
[2021-07-05 05:08] LABS: INR 1.57 (0.83-1.09); PROTHROMBIN TIME (PATIENT) 18.1 SEC (9.7-13.0)
[2021-07-05 05:10] LABS: ACTIVATED PTT 32.4 SECONDS (25.2-36.5)
[2021-07-05] MEDS: HEPARIN - 25,000 UNIT in SODIUM CHLORIDE 495 ML IV SCH (05:19)
[2021-07-05] MEDS ORDERED: HEPARIN NA (PORCINE) 5,000 UNITS/ML 1ML VIAL SQ SCH (06:00)
[2021-07-05] MEDS ORDERED: FUROSEMIDE 40 MG TABLET (FP) ONE ×2 (06:16→16:46)
[2021-07-05] MEDS ORDERED: LEVOTHYROXINE NA 50 MCG TABLET (FP) ONE (06:17)
[2021-07-05] MEDS ORDERED: CARBIDOPA/LEVODOPA 25/100 TABLET (FP) ONE ×2 (06:17→16:47)
[2021-07-05] MEDS: CARBIDOPA/LEVODOPA 25/100 TABLET (FP) PO SCH ×3 (06:20→23:02)
[2021-07-05] MEDS: LEVOTHYROXINE NA 100 MCG TABLET (FP) PO SCH (06:20)
[2021-07-05] MEDS: FUROSEMIDE 40 MG TABLET (FP) PO SCH ×2 (06:20→16:59)
[2021-07-05] MEDS: INSULIN SLIDING SCALE (NOVOLOG) 1 VIAL SQ SCH ×4 (07:58→23:01)
[2021-07-05 08:53] LABS: HEMATOCRIT 34.5 % (32.4-45.2); HEMOGLOBIN 11.3 GM/dL (10.7-15.3); MCH 31.4 pg (25.7-33.7); MCHC 32.7 g/dl (32.0-36.0); MEAN CELL VOLUME 96.3 fl (80-96); MEAN PLT VOLUME 8.4 fl (7.5-11.1); PLATELET COUNT 168 10^3/uL (134-434); RBC 3.58 M/mm3 (3.60-5.2); RDW 16.2 % (11.6-15.6); WHITE BLOOD COUNT 4.8 K/mm3 (4.0-10.0)
[2021-07-05 09:25] LABS: CALCIUM 8.8 mg/dL (8.5-10.1)
[2021-07-05 09:26] LABS: BLOOD UREA NITROGEN 31.6 mg/dL (7-18); MAGNESIUM 2.1 mg/dL (1.8-2.4); TOT PROT 6.3 g/dl (6.4-8.2)
[2021-07-05 09:29] LABS: CREATININE 3.8 mg/dL (0.55-1.3); PHOSPHOROUS 4.4 mg/dL (2.5-4.9)
[2021-07-05] MEDS ORDERED: ASPIRIN COATED 81 MG TABLET.EC ONE (09:55)
[2021-07-05] MEDS ORDERED: LISINOPRIL 5 MG TABLET ONE (09:55)
[2021-07-05] MEDS ORDERED: PANTOPRAZOLE SODIUM 40 MG/100 ML BAG IVPB ONE (09:56)
[2021-07-05] MEDS ORDERED: ISOSORBIDE MONONITRATE 60 MG TAB.SR.24H (FP) PO ONE (09:56)
[2021-07-05] MEDS ORDERED: amLODIPine BESYLATE 2.5 MG TABLET (FP) ONE (09:56)
[2021-07-05] MEDS: ASPIRIN COATED 81 MG TABLET.EC PO SCH (10:14)
[2021-07-05] MEDS: amLODIPine BESYLATE 2.5 MG TABLET (FP) PO SCH (10:14)
[2021-07-05] MEDS: RIVASTIGMINE TARTRATE 1.5 MG CAPSULE PO SCH ×2 (10:14→22:58)
[2021-07-05] MEDS: ISOSORBIDE MONONITRATE 30 MG TAB.SR.24H (FP) PO SCH (10:14)
[2021-07-05] MEDS: LISINOPRIL 5 MG TABLET PO SCH (10:15)
[2021-07-05] MEDS: PANTOPRAZOLE SODIUM 40 MG VIAL IVPUSH SCH (10:15)
[2021-07-05] MEDS: INSULIN (LEVEMIR) 100 UNITS/ML UNITS SQ SCH ×2 (10:22→23:02)
[2021-07-05] MEDS: hydrALAZINE HCL 10 MG TABLET PO SCH ×2 (11:17→22:58)
[2021-07-05 12:09] LABS: INR 1.52 (0.83-1.09); PROTHROMBIN TIME (PATIENT) 17.5 SEC (9.7-13.0)
[2021-07-05] MEDS ORDERED: HEPARIN NA (PORCINE) 5,000 UNITS/ML 1ML VIAL ONE (12:20)
[2021-07-05 13:28] LABS: EPI CELLS >36 /uL (0-25.1); HYALINE CASTS 1 /uL (0-3.1); URINE APPEARANCE CLOUDY; URINE BACTERIA 319 /uL (0-1359); URINE BILIRUBIN NEGATIVE (NEGATIVE); URINE COLOR YELLOW; URINE GLUCOSE (UA) 3+ (NEGATIVE); URINE KETONE NEGATIVE (NEGATIVE); URINE LEUK ESTERASE NEGATIVE (NEGATIVE); URINE NITRITE NEGATIVE (NEGATIVE); URINE PROTEIN 2+ (NEGATIVE); URINE RBC 9 /uL (0-23.9); URINE UROBILINOGEN 0.2 mg/dL (0.2-1.0)
[2021-07-05 15:59] LABS: URINE WBC 73.7 /uL (0-25.8); YEAST NONE SEEN (NEGATIVE)
[2021-07-05] MEDS: ATORVASTATIN CA 80 MG TABLET (FP) PO SCH (22:58)
[2021-07-06 01:09] VITALS: BMI 23.2
[2021-07-06] MEDS: LEVOTHYROXINE NA 100 MCG TABLET (FP) PO SCH (06:32)
[2021-07-06] MEDS: FUROSEMIDE 40 MG TABLET (FP) PO SCH ×2 (06:32→13:55)
[2021-07-06] MEDS: CARBIDOPA/LEVODOPA 25/100 TABLET (FP) PO SCH ×3 (06:33→22:21)
[2021-07-06] MEDS ORDERED: DEXTROSE 50%-WATER 25 GM/50 ML DISP.SYRIN IVPUSH ONE (06:42)
[2021-07-06] MEDS ORDERED: DEXTROSE 50%-WATER 25 GM/50 ML DISP.SYRIN ONE (06:44)
[2021-07-06] MEDS ORDERED: SODIUM CHLORIDE 250 ML IV PRN (07:16)
[2021-07-06] MEDS ORDERED: EPOETIN ALFA-EPBX 4,000 UNIT/ML VIAL SQ ONE (08:00)
[2021-07-06] MEDS: HEPARIN - 25,000 UNIT in SODIUM CHLORIDE 495 ML IV SCH ×2 (09:35→17:07)
[2021-07-06] MEDS: INSULIN SLIDING SCALE (NOVOLOG) 1 VIAL SQ SCH ×4 (09:36→22:24)
[2021-07-06 11:34] LABS: CALCIUM 8.3 mg/dL (8.5-10.1)
[2021-07-06 11:35] LABS: BLOOD UREA NITROGEN 38.6 mg/dL (7-18)
[2021-07-06 11:38] LABS: CREATININE 4.2 mg/dL (0.55-1.3); PHOSPHOROUS 4.6 mg/dL (2.5-4.9)
[2021-07-06] MEDS: PANTOPRAZOLE SODIUM 40 MG VIAL IVPUSH SCH (12:38)
[2021-07-06] MEDS: ASPIRIN COATED 81 MG TABLET.EC PO SCH (12:39)
[2021-07-06] MEDS: LISINOPRIL 5 MG TABLET PO SCH (12:39)
[2021-07-06] MEDS: amLODIPine BESYLATE 2.5 MG TABLET (FP) PO SCH (12:39)
[2021-07-06] MEDS: hydrALAZINE HCL 10 MG TABLET PO SCH ×2 (12:40→22:21)
[2021-07-06] MEDS: ISOSORBIDE MONONITRATE 30 MG TAB.SR.24H (FP) PO SCH (12:40)
[2021-07-06] MEDS: RIVASTIGMINE TARTRATE 1.5 MG CAPSULE PO SCH ×2 (12:41→22:21)
[2021-07-06] MEDS ORDERED: LEVOTHYROXINE NA 100 MCG TABLET (FP) PO SCH (20:49)
[2021-07-06] MEDS ORDERED: INSULIN (LEVEMIR) 100 UNITS/ML UNITS SQ SCH (22:00)
[2021-07-06] MEDS: ATORVASTATIN CA 80 MG TABLET (FP) PO SCH (22:21)
[2021-07-07] MEDS: FUROSEMIDE 40 MG TABLET (FP) PO SCH ×2 (06:19→13:56)
[2021-07-07] MEDS: LIOTHYRONINE SODIUM 5 MCG TABLET PO SCH (06:20)
[2021-07-07] MEDS: CARBIDOPA/LEVODOPA 25/100 TABLET (FP) PO SCH ×3 (06:20→21:16)
[2021-07-07] MEDS: HEPARIN - 25,000 UNIT in SODIUM CHLORIDE 495 ML IV SCH (06:21)
[2021-07-07] MEDS ORDERED: LEVOTHYROXINE NA 112 MCG TABLET (FP) ONE (06:23)
[2021-07-07] MEDS ORDERED: LEVOTHYROXINE NA 25 MCG TABLET (FP) ONE (06:23)
[2021-07-07] MEDS: LEVOTHYROXINE 112 MCG, LEVOTHYROXINE 25 MCG PO SCH (06:24)
[2021-07-07] MEDS: INSULIN SLIDING SCALE (NOVOLOG) 1 VIAL SQ SCH ×4 (06:26→21:21)
[2021-07-07] MEDS ORDERED: INSULIN (LEVEMIR) 100 UNITS/ML UNITS SQ SCH ×2 (07:00→10:11)
[2021-07-07 07:40] LABS: HEMATOCRIT 33.7 % (32.4-45.2); HEMOGLOBIN 11.1 GM/dL (10.7-15.3); MCH 31.9 pg (25.7-33.7); MEAN CELL VOLUME 96.7 fl (80-96); MEAN PLT VOLUME 8.4 fl (7.5-11.1); PLATELET COUNT 168 10^3/uL (134-434); RBC 3.49 M/mm3 (3.60-5.2); RDW 16.6 % (11.6-15.6); WHITE BLOOD COUNT 3.4 K/mm3 (4.0-10.0)
[2021-07-07 08:04] LABS: BLOOD UREA NITROGEN 26.1 mg/dL (7-18); CALCIUM 8.5 mg/dL (8.5-10.1); CREATININE 3.6 mg/dL (0.55-1.3); MAGNESIUM 2.1 mg/dL (1.8-2.4); PHOSPHOROUS 3.5 mg/dL (2.5-4.9)
[2021-07-07] MEDS: amLODIPine BESYLATE 2.5 MG TABLET (FP) PO SCH (10:28)
[2021-07-07] MEDS: ISOSORBIDE MONONITRATE 30 MG TAB.SR.24H (FP) PO SCH (10:28)
[2021-07-07] MEDS: hydrALAZINE HCL 10 MG TABLET PO SCH ×2 (10:28→21:16)
[2021-07-07] MEDS: RIVASTIGMINE TARTRATE 1.5 MG CAPSULE PO SCH ×2 (10:28→21:16)
[2021-07-07] MEDS: LISINOPRIL 5 MG TABLET PO SCH (10:28)
[2021-07-07] MEDS: PANTOPRAZOLE SODIUM 40 MG VIAL IVPUSH SCH (10:28)
[2021-07-07] MEDS: ASPIRIN COATED 81 MG TABLET.EC PO SCH (10:28)
[2021-07-07] MEDS ORDERED: SODIUM CHLORIDE 250 ML IV PRN (15:58)
[2021-07-07] MEDS: HEPARIN NA (PORCINE) 5,000 UNITS/ML 1ML VIAL SQ SCH (21:16)
[2021-07-07] MEDS: ATORVASTATIN CA 80 MG TABLET (FP) PO SCH (21:16)
[2021-07-08] MEDS: HEPARIN NA (PORCINE) 5,000 UNITS/ML 1ML VIAL SQ SCH ×2 (05:33→14:30)
[2021-07-08] MEDS: FUROSEMIDE 40 MG TABLET (FP) PO SCH ×2 (05:33→14:30)
[2021-07-08] MEDS ORDERED: LEVOTHYROXINE NA 25 MCG TABLET (FP) ONE (06:27)
[2021-07-08] MEDS ORDERED: LEVOTHYROXINE NA 112 MCG TABLET (FP) ONE (06:27)
[2021-07-08] MEDS: CARBIDOPA/LEVODOPA 25/100 TABLET (FP) PO SCH ×2 (06:32→14:30)
[2021-07-08] MEDS: INSULIN SLIDING SCALE (NOVOLOG) 1 VIAL SQ SCH ×2 (06:32→12:26)
[2021-07-08] MEDS: LEVOTHYROXINE 112 MCG, LEVOTHYROXINE 25 MCG PO SCH (06:32)
[2021-07-08] MEDS: LIOTHYRONINE SODIUM 5 MCG TABLET PO SCH (06:36)
[2021-07-08] MEDS ORDERED: EPOETIN ALFA-EPBX 4,000 UNIT/ML VIAL IVPUSH ONE ×2 (07:30→10:20)
[2021-07-08 08:02] LABS: HEMATOCRIT 31.8 % (32.4-45.2); HEMOGLOBIN 10.4 GM/dL (10.7-15.3); MCH 31.7 pg (25.7-33.7); MCHC 32.8 g/dl (32.0-36.0); MEAN CELL VOLUME 96.6 fl (80-96); PLATELET COUNT 197 10^3/uL (134-434); RBC 3.29 M/mm3 (3.60-5.2); RDW 16.4 % (11.6-15.6); WHITE BLOOD COUNT 3.2 K/mm3 (4.0-10.0)
[2021-07-08 08:23] LABS: BLOOD UREA NITROGEN 34.5 mg/dL (7-18); CALCIUM 8.7 mg/dL (8.5-10.1)
[2021-07-08 08:24] LABS: MAGNESIUM 2.1 mg/dL (1.8-2.4)
[2021-07-08 08:26] LABS: PHOSPHOROUS 4.2 mg/dL (2.5-4.9)
[2021-07-08 08:27] LABS: CREATININE 4.3 mg/dL (0.55-1.3)
[2021-07-08] MEDS ORDERED: SODIUM CHLORIDE 250 ML IV PRN (10:20)
[2021-07-08] MEDS: LISINOPRIL 5 MG TABLET PO SCH (10:42)
[2021-07-08] MEDS: ASPIRIN COATED 81 MG TABLET.EC PO SCH (10:42)
[2021-07-08] MEDS: PANTOPRAZOLE SODIUM 40 MG VIAL IVPUSH SCH (10:42)
[2021-07-08] MEDS: ISOSORBIDE MONONITRATE 30 MG TAB.SR.24H (FP) PO SCH (10:42)
[2021-07-08] MEDS: RIVASTIGMINE TARTRATE 1.5 MG CAPSULE PO SCH (10:42)
[2021-07-08] MEDS: amLODIPine BESYLATE 2.5 MG TABLET (FP) PO SCH (10:42)
[2021-07-08] MEDS: hydrALAZINE HCL 10 MG TABLET PO SCH (10:42)
[2021-07-08 15:28] VITALS: BP 126/70; PULSE 65; TEMP 98.2
== END 2021-07-08 17:46 | disposition home or self-care (01) | DRG 280 ==
LOC: JER 21:01 → JERBED 23:52 → J4W 07-05 21:21
PROVIDERS: ADMIT Hospitalist; ATTEND Internal Medicine
DX: I21.4 Non-ST elevation (NSTEMI) myocardial infarction (principal); N18.6 End stage renal disease; I50.23 Acute on chronic systolic (congestive) heart failure; D66 Hereditary factor VIII deficiency; J81.1 Chronic pulmonary edema; I13.2 Hypertensive heart and chronic kidney disease with heart failure and with stage 5 chronic kidney disease, or end stage renal disease; I25.10 Atherosclerotic heart disease of native coronary artery without angina pectoris; E78.5 Hyperlipidemia, unspecified; E03.9 Hypothyroidism, unspecified; K43.9 Ventral hernia without obstruction or gangrene; K21.00 Gastro-esophageal reflux disease with esophagitis, without bleeding; I44.7 Left bundle-branch block, unspecified; I27.20 Pulmonary hypertension, unspecified; M10.9 Gout, unspecified; G20 Parkinson's disease; I07.1 Rheumatic tricuspid insufficiency; E11.65 Type 2 diabetes mellitus with hyperglycemia; E11.22 Type 2 diabetes mellitus with diabetic chronic kidney disease; Z99.2 Dependence on renal dialysis; Z95.1 Presence of aortocoronary bypass graft; Z91.14 Patient's other noncompliance with medication regimen
CPT/HCPCS: 36415; 71045-TC-FY; 74177-TC; 76705-TC; 80048; 80053; 80061; 81003; 82010; 82803; 82962; 83605; 83690; 83735; 84100; 84436; 84439; 84443; 84479; 84481; 84484; 85025; 85027; 85610; 85730; 86803; 87086; 87340; 87522; 93005; 93010; 99291; 99292; C9803-CS; J1644; Q5106; U0003; U0005

== ENCOUNTER 2021-07-19 13:16 | Observation (INO) | payer OTHER ==
[2021-07-19] MEDS ORDERED: ACETAMINOPHEN 1000 MG/100 ML BAG IVPB ONE (15:41)
[2021-07-19] MEDS ORDERED: ACETAMINOPHEN INJECTION 100 ML IVPB ONE (17:58)
[2021-07-19 17:59] LABS: BASO % 0.4 % (0-2.0); EOS % 0.1 % (0-4.5); HEMATOCRIT 34.8 % (32.4-45.2); HEMOGLOBIN 11.3 GM/dL (10.7-15.3); LYMPH % 14.6 % (8-40); MCH 32.3 pg (25.7-33.7); MCHC 32.3 g/dl (32.0-36.0); MEAN CELL VOLUME 99.9 fl (80-96); MEAN PLT VOLUME 9.2 fl (7.5-11.1); MONO % 5.5 % (3.8-10.2); NEUT % 79.4 % (42.8-82.8); PLATELET COUNT 228 10^3/uL (134-434); RBC 3.48 M/mm3 (3.60-5.2); RDW 17.9 % (11.6-15.6); WHITE BLOOD COUNT 4.6 K/mm3 (4.0-10.0)
[2021-07-19 18:07] LABS: BLOOD UREA NITROGEN 53.1 mg/dL (7-18); CALCIUM 9.8 mg/dL (8.5-10.1)
[2021-07-19 18:08] LABS: ALBUMIN 3.8 g/dl (3.4-5.0); MAGNESIUM 2.5 mg/dL (1.8-2.4)
[2021-07-19 18:11] LABS: CREATININE 4.5 mg/dL (0.55-1.3)
[2021-07-19 18:12] LABS: TOT PROT 7.9 g/dl (6.4-8.2)
[2021-07-19 19:12] LABS: CHLORIDE 97 mmol/L (98-107); SODIUM 133 mmol/L (136-145)
[2021-07-19 19:15] LABS: ANION GAP 13 MMOL/L (8-16); BLOOD UREA NITROGEN 54.1 mg/dL (7-18); CALCIUM 9.1 mg/dL (8.5-10.1); CO2 23 mmol/L (21-32); GLUCOSE,RANDOM 383 mg/dL (74-106)
[2021-07-19 19:19] LABS: CREATININE 4.5 mg/dL (0.55-1.3)
[2021-07-19] MEDS ORDERED: morphine CARPU-JECT 4 MG/1 ML DISP.SYRIN IVPUSH ONE (22:38)
[2021-07-19] MEDS ORDERED: morphine SULFATE 4 MG/ML VIAL ONE (22:58)
[2021-07-19] MEDS ORDERED: ONDANSETRON 4 MG/2 ML VIAL IVPUSH ONE (23:46)
[2021-07-20 00:10] LABS: CHLORIDE 95 mmol/L (98-107); SODIUM 134 mmol/L (136-145)
[2021-07-20 00:12] LABS: BLOOD UREA NITROGEN 57.2 mg/dL (7-18); CALCIUM 9.5 mg/dL (8.5-10.1); CO2 25 mmol/L (21-32); GLUCOSE,RANDOM 392 mg/dL (74-106)
[2021-07-20 00:16] LABS: CREATININE 4.7 mg/dL (0.55-1.3)
[2021-07-20 00:32] LABS: ANION GAP 14 MMOL/L (8-16)
[2021-07-20 01:53] LABS: EPI CELLS >36 /uL (0-25.1); HYALINE CASTS 7 /uL (0-3.1); URINE APPEARANCE CLOUDY; URINE BACTERIA 11 /uL (0-1359); URINE BILIRUBIN NEGATIVE (NEGATIVE); URINE COLOR YELLOW; URINE GLUCOSE (UA) 2+ (NEGATIVE); URINE KETONE TRACE (NEGATIVE); URINE LEUK ESTERASE NEGATIVE (NEGATIVE); URINE NITRITE NEGATIVE (NEGATIVE); URINE PROTEIN 3+ (NEGATIVE); URINE RBC 5 /uL (0-23.9); URINE WBC 21 /uL (0-25.8)
[2021-07-20] MEDS ORDERED: ACETAMINOPHEN 1000 MG/100 ML BAG IVPB ONE (04:23)
[2021-07-20] MEDS ORDERED: morphine CARPU-JECT 2 MG/1 ML DISP.SYRIN IVPUSH ONE (05:15)
[2021-07-20 05:36] LABS: LACTIC ACID 2.8 mmol/L (0.4-2.0)
[2021-07-20] MEDS ORDERED: HEPARIN NA (PORCINE) 5,000 UNITS/ML 1ML VIAL ONE (05:42)
[2021-07-20] MEDS ORDERED: CARBIDOPA/LEVODOPA 25/100 TABLET (FP) ONE (05:42)
[2021-07-20] MEDS ORDERED: INSULIN (LEVEMIR) 100 UNITS/ML UNITS SQ ONE (05:43)
[2021-07-20] MEDS: CARBIDOPA/LEVODOPA 25/100 TABLET (FP) PO SCH ×3 (05:48→23:49)
[2021-07-20] MEDS: HEPARIN NA (PORCINE) 5,000 UNITS/ML 1ML VIAL SQ SCH ×3 (05:48→23:49)
[2021-07-20 05:49] LABS: HEMATOCRIT 32.7 % (32.4-45.2); HEMOGLOBIN 10.4 GM/dL (10.7-15.3); LYMPH % 17.4 % (8-40); MCHC 31.9 g/dl (32.0-36.0); MEAN CELL VOLUME 100.5 fl (80-96); MONO % 8.6 % (3.8-10.2); PLATELET COUNT 168 10^3/uL (134-434); RBC 3.25 M/mm3 (3.60-5.2); RDW 17.5 % (11.6-15.6); WHITE BLOOD COUNT 5.3 K/mm3 (4.0-10.0)
[2021-07-20] MEDS: INSULIN (LEVEMIR) 100 UNITS/ML UNITS SQ SCH (06:03)
[2021-07-20] MEDS: INSULIN SLIDING SCALE (NOVOLOG) 1 VIAL SQ SCH ×4 (06:03→23:54)
[2021-07-20] MEDS: LEVOTHYROXINE 112 MCG, LEVOTHYROXINE 25 MCG PO SCH (06:03)
[2021-07-20] MEDS: SEVELAMER CARBONATE 800 MG TAB (FP) PO SCH ×3 (06:03→23:49)
[2021-07-20 06:07] LABS: CHLORIDE 96 mmol/L (98-107); SODIUM 136 mmol/L (136-145)
[2021-07-20 06:09] LABS: ALBUMIN 3.4 g/dl (3.4-5.0)
[2021-07-20 06:10] LABS: ANION GAP 17 MMOL/L (8-16); BLOOD UREA NITROGEN 60.9 mg/dL (7-18); CO2 23 mmol/L (21-32); MAGNESIUM 2.3 mg/dL (1.8-2.4)
[2021-07-20 06:12] LABS: SGPT/ALT 23 U/L (13-61)
[2021-07-20 06:14] LABS: BILIRUBIN,TOTAL 0.8 mg/dL (0.2-1); CREATININE 4.7 mg/dL (0.55-1.3); PHOSPHOROUS 6.4 mg/dL (2.5-4.9); SGOT/AST 15 U/L (15-37); TOT PROT 6.7 g/dl (6.4-8.2)
[2021-07-20 06:15] LABS: ALK PHOS 112 U/L (45-117)
[2021-07-20 06:18] LABS: GLUCOSE,RANDOM 403 mg/dL (74-106)
[2021-07-20] MEDS ORDERED: LEVOTHYROXINE NA 100 MCG TABLET (FP) PO SCH (07:00)
[2021-07-20] MEDS ORDERED: INSULIN REGULAR HUMAN 100 UNITS/ML *VIAL IVPUSH ONE ×2 (07:29→09:02)
[2021-07-20] MEDS ORDERED: SODIUM CHLORIDE 250 ML IV STA (07:29)
[2021-07-20] MEDS ORDERED: FUROSEMIDE 40 MG TABLET (FP) ONE (08:51)
[2021-07-20] MEDS ORDERED: amLODIPine BESYLATE 2.5 MG TABLET (FP) ONE (08:51)
[2021-07-20] MEDS ORDERED: SPIRONOLACTONE 25 MG TABLET ONE (08:51)
[2021-07-20] MEDS ORDERED: ASPIRIN COATED 81 MG TABLET.EC ONE (08:51)
[2021-07-20] MEDS ORDERED: hydrALAZINE HCL 10 MG TABLET ONE (08:51)
[2021-07-20 09:58] LABS: LACTIC ACID 3.9 mmol/L (0.4-2.0)
[2021-07-20] MEDS: ISOSORBIDE MONONITRATE 30 MG TAB.SR.24H (FP) PO SCH (10:09)
[2021-07-20] MEDS: hydrALAZINE HCL 10 MG TABLET PO SCH (10:09)
[2021-07-20] MEDS: ASPIRIN COATED 81 MG TABLET.EC PO SCH (10:09)
[2021-07-20] MEDS: RIVASTIGMINE TARTRATE 1.5 MG CAPSULE PO SCH ×2 (10:09→23:49)
[2021-07-20] MEDS: SPIRONOLACTONE 25 MG TABLET PO SCH (10:09)
[2021-07-20] MEDS: FUROSEMIDE 40 MG TABLET (FP) PO SCH ×2 (10:10→23:50)
[2021-07-20] MEDS: amLODIPine BESYLATE 5 MG TABLET (FP) PO SCH (10:10)
[2021-07-20] MEDS: LISINOPRIL 5 MG TABLET PO SCH (10:10)
[2021-07-20] MEDS ORDERED: SODIUM CHLORIDE 250 ML IV PRN (10:18)
[2021-07-20] MEDS ORDERED: EPOETIN ALFA-EPBX 3,000 UNIT/ML VIAL IVPUSH ONE (12:00)
[2021-07-20] MEDS: ATORVASTATIN CA 80 MG TABLET (FP) PO SCH (23:49)
[2021-07-21] MEDS: hydrALAZINE HCL 10 MG TABLET PO SCH ×3 (00:14→23:38)
[2021-07-21] MEDS ORDERED: LEVOTHYROXINE NA 25 MCG TABLET (FP) ONE (05:59)
[2021-07-21] MEDS ORDERED: LEVOTHYROXINE NA 112 MCG TABLET (FP) ONE (05:59)
[2021-07-21] MEDS: HEPARIN NA (PORCINE) 5,000 UNITS/ML 1ML VIAL SQ SCH ×3 (06:18→23:39)
[2021-07-21] MEDS: LEVOTHYROXINE 112 MCG, LEVOTHYROXINE 25 MCG PO SCH (06:18)
[2021-07-21] MEDS: SEVELAMER CARBONATE 800 MG TAB (FP) PO SCH ×3 (06:18→23:38)
[2021-07-21] MEDS: CARBIDOPA/LEVODOPA 25/100 TABLET (FP) PO SCH ×3 (06:18→23:38)
[2021-07-21] MEDS: INSULIN (LEVEMIR) 100 UNITS/ML UNITS SQ SCH (06:19)
[2021-07-21] MEDS: INSULIN SLIDING SCALE (NOVOLOG) 1 VIAL SQ SCH ×4 (06:22→23:45)
[2021-07-21] MEDS: ASPIRIN COATED 81 MG TABLET.EC PO SCH (09:43)
[2021-07-21] MEDS: RIVASTIGMINE TARTRATE 1.5 MG CAPSULE PO SCH ×2 (09:43→23:39)
[2021-07-21] MEDS: FUROSEMIDE 40 MG TABLET (FP) PO SCH ×2 (09:43→23:38)
[2021-07-21] MEDS: LISINOPRIL 5 MG TABLET PO SCH (09:44)
[2021-07-21] MEDS: amLODIPine BESYLATE 5 MG TABLET (FP) PO SCH (09:44)
[2021-07-21] MEDS: ISOSORBIDE MONONITRATE 30 MG TAB.SR.24H (FP) PO SCH (09:44)
[2021-07-21] MEDS: SPIRONOLACTONE 25 MG TABLET PO SCH (09:44)
[2021-07-21 12:20] LABS: HEMATOCRIT 34.5 % (32.4-45.2); HEMOGLOBIN 11.3 GM/dL (10.7-15.3); MCH 32.3 pg (25.7-33.7); MCHC 32.7 g/dl (32.0-36.0); MEAN CELL VOLUME 98.6 fl (80-96); MEAN PLT VOLUME 8.5 fl (7.5-11.1); PLATELET COUNT 157 10^3/uL (134-434); RDW 17.8 % (11.6-15.6); WHITE BLOOD COUNT 3.8 K/mm3 (4.0-10.0)
[2021-07-21 12:54] LABS: CALCIUM 8.8 mg/dL (8.5-10.1)
[2021-07-21 12:55] LABS: MAGNESIUM 2.1 mg/dL (1.8-2.4)
[2021-07-21 12:58] LABS: CREATININE 3.3 mg/dL (0.55-1.3); PHOSPHOROUS 3.5 mg/dL (2.5-4.9)
[2021-07-21 13:01] LABS: BLOOD UREA NITROGEN 32.6 mg/dL (7-18)
[2021-07-21 15:06] VITALS: BMI 21.9
[2021-07-21] MEDS ORDERED: SODIUM CHLORIDE 250 ML IV PRN (15:34)
[2021-07-21] MEDS ORDERED: INSULIN (NOVOLOG) ASPART 100 UNITS/ML 10ML VIAL ONE (21:49)
[2021-07-21] MEDS ORDERED: INSULIN (LEVEMIR) 100 UNITS/ML UNITS SQ ONE (21:50)
[2021-07-21] MEDS: ATORVASTATIN CA 80 MG TABLET (FP) PO SCH (23:38)
[2021-07-22] MEDS ORDERED: LEVOTHYROXINE NA 112 MCG TABLET (FP) ONE (05:46)
[2021-07-22] MEDS ORDERED: LEVOTHYROXINE NA 25 MCG TABLET (FP) ONE (05:46)
[2021-07-22] MEDS: SEVELAMER CARBONATE 800 MG TAB (FP) PO SCH ×2 (06:44→13:10)
[2021-07-22] MEDS: LEVOTHYROXINE 112 MCG, LEVOTHYROXINE 25 MCG PO SCH (06:44)
[2021-07-22] MEDS: CARBIDOPA/LEVODOPA 25/100 TABLET (FP) PO SCH ×2 (06:44→13:09)
[2021-07-22] MEDS: INSULIN (LEVEMIR) 100 UNITS/ML UNITS SQ SCH (06:45)
[2021-07-22] MEDS: HEPARIN NA (PORCINE) 5,000 UNITS/ML 1ML VIAL SQ SCH ×2 (06:45→16:52)
[2021-07-22] MEDS: INSULIN SLIDING SCALE (NOVOLOG) 1 VIAL SQ SCH ×3 (06:49→17:00)
[2021-07-22] MEDS ORDERED: EPOETIN ALFA-EPBX 3,000 UNIT/ML VIAL IVPUSH ONE (08:30)
[2021-07-22] MEDS ORDERED: VITAMIN B COMP W-C 1 EA TABLET (NEPHRO-VITE) PO SCH (10:00)
[2021-07-22 11:48] VITALS: TEMP 97.4
[2021-07-22] MEDS: ISOSORBIDE MONONITRATE 30 MG TAB.SR.24H (FP) PO SCH (13:06)
[2021-07-22] MEDS: hydrALAZINE HCL 10 MG TABLET PO SCH (13:07)
[2021-07-22] MEDS: ASPIRIN COATED 81 MG TABLET.EC PO SCH (13:07)
[2021-07-22] MEDS: amLODIPine BESYLATE 5 MG TABLET (FP) PO SCH (13:07)
[2021-07-22] MEDS: LISINOPRIL 5 MG TABLET PO SCH (13:09)
[2021-07-22] MEDS: SPIRONOLACTONE 25 MG TABLET PO SCH (13:09)
[2021-07-22] MEDS: FUROSEMIDE 40 MG TABLET (FP) PO SCH (13:10)
[2021-07-22] MEDS: RIVASTIGMINE TARTRATE 1.5 MG CAPSULE PO SCH (13:14)
[2021-07-22 14:45] VITALS: BP 139/63; PULSE 73
== END 2021-07-22 18:30 | disposition home or self-care (01) ==
LOC: JER 13:16 → JERBED 20:11 → UNDOADMOB 20:11 → INTOOBSV 20:11 → J7W 07-20 15:20 → JERBED 07-20 15:20 → J7W 07-21 17:36 → JERBED 07-21 17:36
PROVIDERS: ADMIT Hospitalist; ATTEND Internal Medicine
PROC: 3E013VG Introduction of Insulin into Subcutaneous Tissue, Percutaneous Approach (ICD-10-PCS; principal; 2021-07-21)
PROC: 3E033VG Introduction of Insulin into Peripheral Vein, Percutaneous Approach (ICD-10-PCS; 2021-07-21)
PROC: 3E033NZ Introduction of Analgesics, Hypnotics, Sedatives into Peripheral Vein, Percutaneous Approach (ICD-10-PCS; 2021-07-21)
PROC: 3E033GC Introduction of Other Therapeutic Substance into Peripheral Vein, Percutaneous Approach (ICD-10-PCS; 2021-07-21)
PROC: 3E0337Z Introduction of Electrolytic and Water Balance Substance into Peripheral Vein, Percutaneous Approach (ICD-10-PCS; 2021-07-21)
DX: I25.10 Atherosclerotic heart disease of native coronary artery without angina pectoris (principal); K21.00 Gastro-esophageal reflux disease with esophagitis, without bleeding; I11.0 Hypertensive heart disease with heart failure; G20 Parkinson's disease; B19.20 Unspecified viral hepatitis C without hepatic coma; E11.22 Type 2 diabetes mellitus with diabetic chronic kidney disease; E11.65 Type 2 diabetes mellitus with hyperglycemia; N18.6 End stage renal disease; Z99.2 Dependence on renal dialysis; Z95.5 Presence of coronary angioplasty implant and graft; E03.9 Hypothyroidism, unspecified; R01.1 Cardiac murmur, unspecified; K21.9 Gastro-esophageal reflux disease without esophagitis; K29.70 Gastritis, unspecified, without bleeding; F41.9 Anxiety disorder, unspecified; M10.9 Gout, unspecified; K44.9 Diaphragmatic hernia without obstruction or gangrene; Z87.891 Personal history of nicotine dependence
CPT/HCPCS: 36415; 74174-TC; 74176-TC; 80048; 80053; 81003; 82962; 83605; 83690; 83735; 84100; 84484; 85025; 85027; 87086; 93005; 93010; 96372; 96374; 96375; 96376; 99285-25; C9803-CS; G0378; J1644; Q5106; Q9967; U0003; U0005

== ENCOUNTER 2021-09-15 09:32 | Inpatient (IN) | payer OTHER ==
[2021-09-15 09:57] VITALS: BMI 24.7
[2021-09-15 11:53] LABS: VENOUS BASE EXCESS -3.4 mmol/L (-2-2); VENOUS O2 SATURATION 70.8 % (70-80); VENOUS PCO2 45.7 mmHg (38-52); VENOUS PH 7.316 (7.310-7.410)
[2021-09-15 11:56] LABS: BASO % 0.5 % (0-2.0); EOS % 0.2 % (0-4.5); HEMOGLOBIN 13.5 GM/dL (10.7-15.3); LYMPH % 17.1 % (8-40); MCH 32.9 pg (25.7-33.7); MCHC 32.1 g/dl (32.0-36.0); MEAN CELL VOLUME 102.4 fl (80-96); MONO % 8.2 % (3.8-10.2); PLATELET COUNT 145 10^3/uL (134-434)
[2021-09-15 12:19] LABS: CHLORIDE 87 mmol/L (98-107)
[2021-09-15 12:23] LABS: CALCIUM 10.3 mg/dL (8.5-10.1)
[2021-09-15 12:24] LABS: ALBUMIN 3.8 g/dl (3.4-5.0); BLOOD UREA NITROGEN 42.1 mg/dL (7-18); CO2 25 mmol/L (21-32)
[2021-09-15 12:28] LABS: ALK PHOS 145 U/L (45-117); BILIRUBIN,TOTAL 0.9 mg/dL (0.2-1); TOT PROT 7.9 g/dl (6.4-8.2)
[2021-09-15 12:30] LABS: ANION GAP 7 MMOL/L (8-16); GLUCOSE,RANDOM 893 mg/dL (74-106); SGOT/AST 85 U/L (15-37); SGPT/ALT 26 U/L (13-61); SODIUM 119 mmol/L (136-145)
[2021-09-15] MEDS ORDERED: SODIUM CHLORIDE 0.9% 1000 ML INFUS.BAG IV ONE ×2 (12:36→14:05)
[2021-09-15] MEDS ORDERED: INSULIN REGULAR HUMAN 100 UNITS/ML *VIAL IVPUSH ONE (12:49)
[2021-09-15] MEDS ORDERED: INSULIN REGULAR 100 UNITS in SODIUM CHLORIDE 99 ML IVPB SCH (13:00)
[2021-09-15] MEDS ORDERED: INSULIN REGULAR HUMAN 100 UNITS/ML *VIAL ONE (13:35)
[2021-09-15] MEDS ORDERED: DEXTROSE 50%-WATER - 25 GM/50 ML VIAL IVPUSH PRN (14:20)
[2021-09-15] MEDS ORDERED: SODIUM CHLORIDE 250 ML IV PRN (15:08)
[2021-09-15 15:30] LABS: PHOSPHOROUS 6.1 mg/dL (2.5-4.9)
[2021-09-15] MEDS: HEPARIN NA (PORCINE) 5,000 UNITS/ML 1ML VIAL SQ SCH (18:11)
[2021-09-15 21:07] LABS: ALBUMIN 3.2 g/dl (3.4-5.0); MAGNESIUM 1.8 mg/dL (1.8-2.4)
[2021-09-15 21:10] LABS: CREATININE 1.5 mg/dL (0.55-1.3)
[2021-09-15 21:17] LABS: BILIRUBIN,TOTAL 0.5 mg/dL (0.2-1)
[2021-09-15 21:24] LABS: BLOOD UREA NITROGEN 12.4 mg/dL (7-18); CALCIUM 8.5 mg/dL (8.5-10.1)
[2021-09-15] MEDS: MUPIROCIN 2% TOPICAL OINTMENT FOR DECOLONIZATION NS SCH (22:22)
[2021-09-15] MEDS: RIVASTIGMINE TARTRATE 1.5 MG CAPSULE PO SCH (22:22)
[2021-09-15] MEDS: CARBIDOPA/LEVODOPA 25/100 TABLET (FP) PO SCH (22:22)
[2021-09-15] MEDS: CHLORHEXIDINE GLUCONATE 4% CLEANSER FOR DECOLONIZATION TP SCH (22:23)
[2021-09-15] MEDS ORDERED: DEXTROSE 5%-WATER - 1,000 ML IV SCH (22:45)
[2021-09-15] MEDS ORDERED: DEXTROSE 5%-WATER - 500 ML IV SCH (22:45)
[2021-09-15] MEDS: KCL 10 MEQ IVPB 10 MEQ/100 ML INFUS.BAG IVPB SCH ×2 (23:13→23:26)
[2021-09-15] MEDS ORDERED: DEXTROSE 5% IV ONE (23:45)
[2021-09-15] MEDS ORDERED: POTASSIUM CHLORIDE IV ONE (23:45)
[2021-09-15] MEDS ORDERED: WATER IV ONE (23:45)
[2021-09-16] MEDS: HEPARIN NA (PORCINE) 5,000 UNITS/ML 1ML VIAL SQ SCH ×3 (02:03→17:40)
[2021-09-16 04:44] LABS: PHOSPHOROUS 3.4 mg/dL (2.5-4.9)
[2021-09-16] MEDS ORDERED: LEVOTHYROXINE NA 25 MCG TABLET (FP) ONE (05:26)
[2021-09-16] MEDS ORDERED: LEVOTHYROXINE NA 112 MCG TABLET (FP) ONE (05:27)
[2021-09-16 05:56] LABS: BLOOD UREA NITROGEN 20.2 mg/dL (7-18); CALCIUM 9.2 mg/dL (8.5-10.1)
[2021-09-16 05:59] LABS: CREATININE 2.5 mg/dL (0.55-1.3)
[2021-09-16] MEDS ORDERED: INSULIN (LEVEMIR) 100 UNITS/ML UNITS SQ ONE (06:00)
[2021-09-16] MEDS: CARBIDOPA/LEVODOPA 25/100 TABLET (FP) PO SCH ×3 (06:07→21:20)
[2021-09-16] MEDS: INSULIN SLIDING SCALE (NOVOLOG) 1 VIAL SQ SCH ×4 (06:43→21:27)
[2021-09-16] MEDS ORDERED: LEVOTHYROXINE 112 MCG, LEVOTHYROXINE 25 MCG PO SCH (07:00)
[2021-09-16] MEDS ORDERED: LEVOTHYROXINE NA 100 MCG TABLET (FP) PO SCH (07:00)
[2021-09-16 07:35] LABS: BASO % 0.4 % (0-2.0); EOS % 0.4 % (0-4.5); HEMATOCRIT 39.3 % (32.4-45.2); HEMOGLOBIN 13.1 GM/dL (10.7-15.3); LYMPH % 19.3 % (8-40); MCHC 33.4 g/dl (32.0-36.0); MEAN CELL VOLUME 98.9 fl (80-96); MEAN PLT VOLUME 8.8 fl (7.5-11.1); MONO % 8.6 % (3.8-10.2); NEUT % 71.3 % (42.8-82.8); PLATELET COUNT 139 10^3/uL (134-434); RBC 3.97 M/mm3 (3.60-5.2); RDW 16.1 % (11.6-15.6); WHITE BLOOD COUNT 4.5 K/mm3 (4.0-10.0)
[2021-09-16] MEDS ORDERED: INSULIN (LEVEMIR) 100 UNITS/ML UNITS SQ SCH (09:00)
[2021-09-16] MEDS ORDERED: SODIUM CHLORIDE 250 ML IV PRN (09:31)
[2021-09-16] MEDS ORDERED: ASPIRIN COATED 81 MG TABLET.EC PO SCH (10:00)
[2021-09-16] MEDS ORDERED: CLOPIDOGREL BISULFATE 75 MG TABLET (FP) PO SCH (10:00)
[2021-09-16] MEDS: RIVASTIGMINE TARTRATE 1.5 MG CAPSULE PO SCH ×2 (10:03→21:19)
[2021-09-16] MEDS: MUPIROCIN 2% TOPICAL OINTMENT FOR DECOLONIZATION NS SCH ×2 (10:04→21:19)
[2021-09-16] MEDS: CHLORHEXIDINE GLUCONATE 4% CLEANSER FOR DECOLONIZATION TP SCH (21:19)
[2021-09-16] MEDS ORDERED: ATORVASTATIN CA 80 MG TABLET (FP) PO SCH ×2 (22:00→23:30)
[2021-09-17] MEDS: HEPARIN NA (PORCINE) 5,000 UNITS/ML 1ML VIAL SQ SCH ×4 (01:41→16:21)
[2021-09-17] MEDS ORDERED: SODIUM CHLORIDE 250 ML IV PRN (05:16)
[2021-09-17] MEDS ORDERED: LEVOTHYROXINE NA 112 MCG TABLET (FP) ONE (06:03)
[2021-09-17] MEDS ORDERED: LEVOTHYROXINE NA 25 MCG TABLET (FP) ONE (06:03)
[2021-09-17] MEDS: CARBIDOPA/LEVODOPA 25/100 TABLET (FP) PO SCH ×3 (06:17→16:21)
[2021-09-17] MEDS ORDERED: LEVOTHYROXINE 112 MCG, LEVOTHYROXINE 25 MCG PO SCH (07:00)
[2021-09-17] MEDS ORDERED: INSULIN SLIDING SCALE (NOVOLOG) 1 VIAL SQ SCH ×2 (07:00→22:00)
[2021-09-17] MEDS ORDERED: INSULIN (LEVEMIR) 100 UNITS/ML UNITS SQ SCH ×2 (08:00)
[2021-09-17] MEDS: ISOSORBIDE MONONITRATE 30 MG TAB.SR.24H (FP) PO SCH ×2 (09:53→16:21)
[2021-09-17] MEDS ORDERED: RIVASTIGMINE TARTRATE 1.5 MG CAPSULE PO SCH (10:00)
[2021-09-17] MEDS ORDERED: MUPIROCIN 2% TOPICAL OINTMENT FOR DECOLONIZATION NS SCH (10:00)
[2021-09-17] MEDS ORDERED: ASPIRIN COATED 81 MG TABLET.EC PO SCH (10:00)
[2021-09-17] MEDS ORDERED: CLOPIDOGREL BISULFATE 75 MG TABLET (FP) PO SCH (10:00)
[2021-09-17] MEDS: INSULIN SLIDING SCALE (NOVOLOG) 1 VIAL SQ SCH ×2 (11:36→17:32)
[2021-09-17 16:05] VITALS: BP 125/74; PULSE 86; TEMP 97.6
[2021-09-17] MEDS ORDERED: CHLORHEXIDINE GLUCONATE 4% CLEANSER FOR DECOLONIZATION TP SCH (22:00)
== END 2021-09-17 19:02 | disposition home or self-care (01) | DRG 637 ==
LOC: JER 09:32 → JERBED 14:30 → JICU 15:32 → J8W 09-17 01:49
PROVIDERS: ADMIT Internal Medicine Pulmonary Disease; ATTEND Internal Medicine
PROC: 5A1D70Z Performance of Urinary Filtration, Intermittent, Less than 6 Hours Per Day (ICD-10-PCS; principal; 2021-09-15)
DX: E11.00 Type 2 diabetes mellitus with hyperosmolarity without nonketotic hyperglycemic-hyperosmolar coma (NKHHC) (principal); N18.6 End stage renal disease; I13.2 Hypertensive heart and chronic kidney disease with heart failure and with stage 5 chronic kidney disease, or end stage renal disease; I50.22 Chronic systolic (congestive) heart failure; E87.1 Hypo-osmolality and hyponatremia; I25.10 Atherosclerotic heart disease of native coronary artery without angina pectoris; E11.22 Type 2 diabetes mellitus with diabetic chronic kidney disease; Z99.2 Dependence on renal dialysis; E03.9 Hypothyroidism, unspecified; D64.9 Anemia, unspecified; J45.909 Unspecified asthma, uncomplicated; Z91.14 Patient's other noncompliance with medication regimen; E87.5 Hyperkalemia; Z86.16 Personal history of COVID-19; Z95.1 Presence of aortocoronary bypass graft; I27.20 Pulmonary hypertension, unspecified; I44.7 Left bundle-branch block, unspecified
CPT/HCPCS: 36415; 71045-TC-FY; 80048; 80053; 82803; 82962; 83036; 83735; 84100; 84132; 84484; 85025; 86803; 86850; 86900; 86901; 87340; 87522; 93005; 93010; 99285-25; C9803-CS; J1644; U0003; U0005

== ENCOUNTER 2021-09-29 09:29 | Inpatient (IN) | payer OTHER ==
[2021-09-29 09:53] VITALS: BMI 22.3
[2021-09-29 10:17] LABS: BASO % 0.6 % (0-2.0); EOS % 0.6 % (0-4.5); HEMATOCRIT 39.4 % (32.4-45.2); HEMOGLOBIN 12.9 GM/dL (10.7-15.3); MCH 32.7 pg (25.7-33.7); MCHC 32.8 g/dl (32.0-36.0); MEAN CELL VOLUME 99.7 fl (80-96); MEAN PLT VOLUME 9.1 fl (7.5-11.1); MONO % 9.7 % (3.8-10.2); NEUT % 69.1 % (42.8-82.8); PLATELET COUNT 188 10^3/uL (134-434); RBC 3.95 M/mm3 (3.60-5.2); RDW 15.4 % (11.6-15.6); WHITE BLOOD COUNT 3.6 K/mm3 (4.0-10.0)
[2021-09-29 10:21] LABS: VENOUS BASE EXCESS 0.2 mmol/L (-2-2); VENOUS PH 7.349 (7.310-7.410)
[2021-09-29 10:39] LABS: CHLORIDE 93 mmol/L (98-107); SODIUM 133 mmol/L (136-145)
[2021-09-29 10:42] LABS: ALBUMIN 3.8 g/dl (3.4-5.0); ANION GAP 13 MMOL/L (8-16); BLOOD UREA NITROGEN 33.9 mg/dL (7-18); CALCIUM 9.5 mg/dL (8.5-10.1); CO2 27 mmol/L (21-32)
[2021-09-29 10:45] LABS: CREATININE 3.9 mg/dL (0.55-1.3); SGOT/AST 18 U/L (15-37); SGPT/ALT 18 U/L (13-61)
[2021-09-29 10:46] LABS: TOT PROT 7.2 g/dl (6.4-8.2)
[2021-09-29 10:47] LABS: ALK PHOS 120 U/L (45-117); BILIRUBIN,TOTAL 0.6 mg/dL (0.2-1); GLUCOSE,RANDOM 413 mg/dL (74-106)
[2021-09-29] MEDS ORDERED: INSULIN (NOVOLOG) ASPART 100 UNITS/ML 10ML VIAL SQ ONE (11:05)
[2021-09-29] MEDS ORDERED: POLYETHYLENE GLYCOL (HEALTHYLAX) 3350 17 GM PACKET PO PRN (13:08)
[2021-09-29] MEDS ORDERED: INSULIN (LEVEMIR) 100 UNITS/ML UNITS SQ ONE (13:10)
[2021-09-29] MEDS ORDERED: HEPARIN NA (PORCINE) 5,000 UNITS/ML 1ML VIAL ONE (14:27)
[2021-09-29] MEDS: HEPARIN NA (PORCINE) 5,000 UNITS/ML 1ML VIAL SQ SCH ×2 (14:43→22:44)
[2021-09-29] MEDS: INSULIN SLIDING SCALE (NOVOLOG) 1 VIAL SQ SCH ×2 (17:46→22:45)
[2021-09-29] MEDS ORDERED: ALBUTEROL SO4 HFA INHALER IH PRN (20:39)
[2021-09-29] MEDS ORDERED: SODIUM CHLORIDE 1,000 ML IV SCH (20:45)
[2021-09-29] MEDS: CARBIDOPA/LEVODOPA 25/100 TABLET (FP) PO SCH (22:44)
[2021-09-29] MEDS: hydrALAZINE HCL 10 MG TABLET PO SCH (22:44)
[2021-09-29] MEDS: ATORVASTATIN CA 80 MG TABLET (FP) PO SCH (22:44)
[2021-09-29] MEDS: RIVASTIGMINE TARTRATE 1.5 MG CAPSULE PO SCH (22:45)
[2021-09-30] MEDS ORDERED: ONDANSETRON 4 MG TABLET PO ONE (00:10)
[2021-09-30] MEDS: INSULIN SLIDING SCALE (NOVOLOG) 1 VIAL SQ SCH ×4 (06:32→21:36)
[2021-09-30] MEDS: LEVOTHYROXINE NA 100 MCG TABLET (FP) PO SCH (06:32)
[2021-09-30] MEDS: CARBIDOPA/LEVODOPA 25/100 TABLET (FP) PO SCH ×3 (06:32→21:36)
[2021-09-30] MEDS: HEPARIN NA (PORCINE) 5,000 UNITS/ML 1ML VIAL SQ SCH ×3 (06:32→21:36)
[2021-09-30] MEDS: FUROSEMIDE 40 MG TABLET (FP) PO SCH ×2 (06:32→15:18)
[2021-09-30] MEDS: SEVELAMER CARBONATE 800 MG TAB (FP) PO SCH ×3 (08:58→17:36)
[2021-09-30 10:07] LABS: HEMOGLOBIN 11.5 GM/dL (10.7-15.3); MCH 32.3 pg (25.7-33.7); MCHC 32.9 g/dl (32.0-36.0); MEAN CELL VOLUME 98.1 fl (80-96); MEAN PLT VOLUME 8.5 fl (7.5-11.1); PLATELET COUNT 136 10^3/uL (134-434); RBC 3.57 M/mm3 (3.60-5.2); RDW 15.2 % (11.6-15.6); WHITE BLOOD COUNT 3.5 K/mm3 (4.0-10.0)
[2021-09-30 10:25] LABS: CALCIUM 8.8 mg/dL (8.5-10.1)
[2021-09-30 10:26] LABS: BLOOD UREA NITROGEN 31.7 mg/dL (7-18)
[2021-09-30 10:29] LABS: CREATININE 3.6 mg/dL (0.55-1.3)
[2021-09-30] MEDS: INSULIN (LEVEMIR) 100 UNITS/ML UNITS SQ SCH (13:01)
[2021-09-30] MEDS: ASPIRIN COATED 81 MG TABLET.EC PO SCH (13:02)
[2021-09-30] MEDS: amLODIPine BESYLATE 2.5 MG TABLET (FP) PO SCH (13:02)
[2021-09-30] MEDS: RIVASTIGMINE TARTRATE 1.5 MG CAPSULE PO SCH ×2 (13:03→21:35)
[2021-09-30] MEDS: SPIRONOLACTONE 25 MG TABLET PO SCH (13:03)
[2021-09-30] MEDS: hydrALAZINE HCL 10 MG TABLET PO SCH ×2 (13:03→21:36)
[2021-09-30] MEDS: CLOPIDOGREL BISULFATE 75 MG TABLET (FP) PO SCH (13:03)
[2021-09-30] MEDS ORDERED: SODIUM CHLORIDE 250 ML IV PRN (14:33)
[2021-09-30 19:18] LABS: EPI CELLS >36 /uL (0-25.1); HYALINE CASTS 1 /uL (0-3.1); PH,URINE 5.5 (5.0-8.0); URINE APPEARANCE CLOUDY; URINE BACTERIA 1312 /uL (0-1359); URINE BILIRUBIN NEGATIVE (NEGATIVE); URINE COLOR YELLOW; URINE GLUCOSE (UA) 3+ (NEGATIVE); URINE KETONE NEGATIVE (NEGATIVE); URINE LEUK ESTERASE TRACE (NEGATIVE); URINE NITRITE NEGATIVE (NEGATIVE); URINE PROTEIN 3+ (NEGATIVE); URINE RBC 31 /uL (0-23.9); URINE UROBILINOGEN 0.2 mg/dL (0.2-1.0); URINE WBC 19 /uL (0-25.8)
[2021-09-30 19:23] VITALS: RESP 18
[2021-09-30] MEDS: DOCUSATE SODIUM 100 MG CAPSULE (FP) PO SCH (21:36)
[2021-09-30] MEDS: ATORVASTATIN CA 80 MG TABLET (FP) PO SCH (21:36)
[2021-10-01] MEDS ORDERED: ONDANSETRON 4 MG/2 ML VIAL IVPUSH ONE (02:41)
[2021-10-01] MEDS: LEVOTHYROXINE NA 100 MCG TABLET (FP) PO SCH (06:33)
[2021-10-01] MEDS: HEPARIN NA (PORCINE) 5,000 UNITS/ML 1ML VIAL SQ SCH ×3 (06:34→22:01)
[2021-10-01] MEDS: FUROSEMIDE 40 MG TABLET (FP) PO SCH ×2 (06:34→13:26)
[2021-10-01] MEDS: CARBIDOPA/LEVODOPA 25/100 TABLET (FP) PO SCH ×3 (06:34→22:01)
[2021-10-01] MEDS: INSULIN SLIDING SCALE (NOVOLOG) 1 VIAL SQ SCH ×4 (06:34→22:02)
[2021-10-01] MEDS ORDERED: NYSTATIN 500,000 UNITS/5 ML SUSPENSION PO SCH (10:00)
[2021-10-01] MEDS: SEVELAMER CARBONATE 800 MG TAB (FP) PO SCH ×3 (11:00→16:30)
[2021-10-01] MEDS: TRIMETHOBENZAMIDE HCL 200MG/2ML INJ IM ONE ×2 (11:06→11:32)
[2021-10-01] MEDS: SPIRONOLACTONE 25 MG TABLET PO SCH (11:07)
[2021-10-01] MEDS: amLODIPine BESYLATE 2.5 MG TABLET (FP) PO SCH (11:07)
[2021-10-01] MEDS: INSULIN (LEVEMIR) 100 UNITS/ML UNITS SQ SCH (11:07)
[2021-10-01] MEDS: hydrALAZINE HCL 10 MG TABLET PO SCH ×2 (11:08→22:01)
[2021-10-01] MEDS: RIVASTIGMINE TARTRATE 1.5 MG CAPSULE PO SCH ×2 (11:08→22:01)
[2021-10-01] MEDS: ASPIRIN COATED 81 MG TABLET.EC PO SCH (11:08)
[2021-10-01] MEDS: CLOPIDOGREL BISULFATE 75 MG TABLET (FP) PO SCH (11:08)
[2021-10-01 11:12] LABS: HEMATOCRIT 36.6 % (32.4-45.2); HEMOGLOBIN 11.9 GM/dL (10.7-15.3); MCH 32.1 pg (25.7-33.7); MCHC 32.4 g/dl (32.0-36.0); MEAN CELL VOLUME 99.1 fl (80-96); MEAN PLT VOLUME 8.5 fl (7.5-11.1); PLATELET COUNT 141 10^3/uL (134-434); RDW 15.1 % (11.6-15.6); WHITE BLOOD COUNT 4.6 K/mm3 (4.0-10.0)
[2021-10-01 11:40] LABS: CALCIUM 9.2 mg/dL (8.5-10.1)
[2021-10-01 11:41] LABS: BLOOD UREA NITROGEN 21.2 mg/dL (7-18)
[2021-10-01 11:44] LABS: CREATININE 3.2 mg/dL (0.55-1.3); PHOSPHOROUS 2.8 mg/dL (2.5-4.9)
[2021-10-01] MEDS: NYSTATIN 500,000 UNITS/5 ML SUSPENSION PO SCH ×3 (13:26→22:01)
[2021-10-01] MEDS ORDERED: POTASSIUM CHLORIDE TABS 20 MEQ TABLET.ER (FP) PO ONE (14:49)
[2021-10-01] MEDS: ONDANSETRON 4 MG/2 ML VIAL IVPUSH ONE ×2 (17:45→18:24)
[2021-10-01] MEDS: ATORVASTATIN CA 80 MG TABLET (FP) PO SCH (22:01)
[2021-10-01] MEDS: DOCUSATE SODIUM 100 MG CAPSULE (FP) PO SCH (22:01)
[2021-10-02] MEDS: FUROSEMIDE 40 MG TABLET (FP) PO SCH ×2 (03:00→06:29)
[2021-10-02] MEDS: CARBIDOPA/LEVODOPA 25/100 TABLET (FP) PO SCH ×3 (06:29→21:12)
[2021-10-02] MEDS: HEPARIN NA (PORCINE) 5,000 UNITS/ML 1ML VIAL SQ SCH ×3 (06:29→21:13)
[2021-10-02] MEDS: LEVOTHYROXINE NA 100 MCG TABLET (FP) PO SCH (06:29)
[2021-10-02] MEDS: INSULIN SLIDING SCALE (NOVOLOG) 1 VIAL SQ SCH ×4 (06:29→21:23)
[2021-10-02] MEDS ORDERED: SODIUM CHLORIDE 250 ML IV PRN (07:49)
[2021-10-02 09:52] LABS: HEMATOCRIT 36.3 % (32.4-45.2); HEMOGLOBIN 11.8 GM/dL (10.7-15.3); MCH 32.2 pg (25.7-33.7); MCHC 32.6 g/dl (32.0-36.0); MEAN CELL VOLUME 98.8 fl (80-96); MEAN PLT VOLUME 8.7 fl (7.5-11.1); PLATELET COUNT 138 10^3/uL (134-434); RBC 3.68 M/mm3 (3.60-5.2); RDW 15.3 % (11.6-15.6); WHITE BLOOD COUNT 3.2 K/mm3 (4.0-10.0)
[2021-10-02 10:55] LABS: BLOOD UREA NITROGEN 28.9 mg/dL (7-18); CALCIUM 9.4 mg/dL (8.5-10.1)
[2021-10-02 11:00] LABS: PHOSPHOROUS 2.9 mg/dL (2.5-4.9)
[2021-10-02 11:02] LABS: CREATININE 3.4 mg/dL (0.55-1.3)
[2021-10-02] MEDS: amLODIPine BESYLATE 2.5 MG TABLET (FP) PO SCH (15:10)
[2021-10-02] MEDS: SEVELAMER CARBONATE 800 MG TAB (FP) PO SCH ×3 (15:10→17:47)
[2021-10-02] MEDS: NYSTATIN 500,000 UNITS/5 ML SUSPENSION PO SCH ×4 (15:10→21:12)
[2021-10-02] MEDS: hydrALAZINE HCL 10 MG TABLET PO SCH ×2 (15:10→21:13)
[2021-10-02] MEDS: SPIRONOLACTONE 25 MG TABLET PO SCH (15:10)
[2021-10-02] MEDS: ASPIRIN COATED 81 MG TABLET.EC PO SCH (15:13)
[2021-10-02] MEDS: RIVASTIGMINE TARTRATE 1.5 MG CAPSULE PO SCH ×2 (15:14→21:12)
[2021-10-02] MEDS: INSULIN (LEVEMIR) 100 UNITS/ML UNITS SQ SCH (15:14)
[2021-10-02] MEDS: CLOPIDOGREL BISULFATE 75 MG TABLET (FP) PO SCH (16:38)
[2021-10-02] MEDS ORDERED: DEXTROSE 5%-WATER - 50 ML IVPB ONE (16:42)
[2021-10-02] MEDS ORDERED: cefTRIAXone SODIUM 1 GM VIAL ONE (16:42)
[2021-10-02] MEDS: CEFTRIAXONE 1 GM in DEXTROSE 5%-WATER - 50 ML IVPB SCH (16:45)
[2021-10-02] MEDS: ATORVASTATIN CA 40 MG TABLET (FP) PO SCH (21:12)
[2021-10-02] MEDS: DOCUSATE SODIUM 100 MG CAPSULE (FP) PO SCH (22:30)
[2021-10-03] MEDS: FUROSEMIDE 40 MG TABLET (FP) PO SCH ×2 (06:30→14:46)
[2021-10-03] MEDS: CARBIDOPA/LEVODOPA 25/100 TABLET (FP) PO SCH ×3 (06:30→21:38)
[2021-10-03] MEDS: HEPARIN NA (PORCINE) 5,000 UNITS/ML 1ML VIAL SQ SCH ×3 (06:30→21:38)
[2021-10-03] MEDS: INSULIN SLIDING SCALE (NOVOLOG) 1 VIAL SQ SCH ×4 (06:31→21:39)
[2021-10-03] MEDS: LEVOTHYROXINE NA 100 MCG TABLET (FP) PO SCH (06:32)
[2021-10-03] MEDS ORDERED: cefTRIAXone SODIUM 1 GM VIAL ONE (08:28)
[2021-10-03] MEDS ORDERED: DEXTROSE 5%-WATER - 50 ML IVPB ONE (08:29)
[2021-10-03] MEDS: SEVELAMER CARBONATE 800 MG TAB (FP) PO SCH ×3 (08:48→17:12)
[2021-10-03] MEDS: CLOPIDOGREL BISULFATE 75 MG TABLET (FP) PO SCH (09:01)
[2021-10-03] MEDS: ASPIRIN COATED 81 MG TABLET.EC PO SCH (09:01)
[2021-10-03] MEDS: hydrALAZINE HCL 10 MG TABLET PO SCH ×2 (09:01→21:38)
[2021-10-03] MEDS: INSULIN (LEVEMIR) 100 UNITS/ML UNITS SQ SCH (09:02)
[2021-10-03] MEDS: SPIRONOLACTONE 25 MG TABLET PO SCH (09:02)
[2021-10-03] MEDS: CEFTRIAXONE 1 GM in DEXTROSE 5%-WATER - 50 ML IVPB SCH (09:02)
[2021-10-03] MEDS: NYSTATIN 500,000 UNITS/5 ML SUSPENSION PO SCH ×4 (09:03→21:37)
[2021-10-03] MEDS: amLODIPine BESYLATE 2.5 MG TABLET (FP) PO SCH (09:03)
[2021-10-03] MEDS: RIVASTIGMINE TARTRATE 1.5 MG CAPSULE PO SCH ×2 (12:27→21:38)
[2021-10-03] MEDS ORDERED: SODIUM CHLORIDE 250 ML IV PRN (12:32)
[2021-10-03] MEDS ORDERED: FAMOTIDINE 10 MG TABLET PO PRN (17:15)
[2021-10-03] MEDS: ATORVASTATIN CA 40 MG TABLET (FP) PO SCH (21:38)
[2021-10-03] MEDS: DOCUSATE SODIUM 100 MG CAPSULE (FP) PO SCH (21:38)
[2021-10-03] MEDS ORDERED: LACTOBACILLUS ACIDOPHILUS 1 TABLET PO SCH (22:00)
[2021-10-04] MEDS: CARBIDOPA/LEVODOPA 25/100 TABLET (FP) PO SCH ×2 (06:51→16:43)
[2021-10-04] MEDS: LEVOTHYROXINE NA 100 MCG TABLET (FP) PO SCH (06:51)
[2021-10-04] MEDS: INSULIN SLIDING SCALE (NOVOLOG) 1 VIAL SQ SCH ×3 (06:51→17:03)
[2021-10-04] MEDS: HEPARIN NA (PORCINE) 5,000 UNITS/ML 1ML VIAL SQ SCH ×2 (06:51→16:43)
[2021-10-04] MEDS: FUROSEMIDE 40 MG TABLET (FP) PO SCH ×2 (06:51→16:42)
[2021-10-04] MEDS: SEVELAMER CARBONATE 800 MG TAB (FP) PO SCH ×3 (08:33→16:42)
[2021-10-04] MEDS ORDERED: cefTRIAXone SODIUM 1 GM VIAL ONE (10:06)
[2021-10-04] MEDS ORDERED: DEXTROSE 5%-WATER - 50 ML IVPB ONE (10:07)
[2021-10-04] MEDS: INSULIN (LEVEMIR) 100 UNITS/ML UNITS SQ SCH (10:14)
[2021-10-04] MEDS: amLODIPine BESYLATE 2.5 MG TABLET (FP) PO SCH (10:15)
[2021-10-04] MEDS: ASPIRIN COATED 81 MG TABLET.EC PO SCH (10:15)
[2021-10-04] MEDS: hydrALAZINE HCL 10 MG TABLET PO SCH (10:15)
[2021-10-04] MEDS: CLOPIDOGREL BISULFATE 75 MG TABLET (FP) PO SCH (10:15)
[2021-10-04] MEDS: CEFTRIAXONE 1 GM in DEXTROSE 5%-WATER - 50 ML IVPB SCH (10:15)
[2021-10-04] MEDS: SPIRONOLACTONE 25 MG TABLET PO SCH (10:15)
[2021-10-04] MEDS: NYSTATIN 500,000 UNITS/5 ML SUSPENSION PO SCH ×2 (10:15→16:42)
[2021-10-04] MEDS: RIVASTIGMINE TARTRATE 1.5 MG CAPSULE PO SCH (10:16)
[2021-10-04 13:32] VITALS: TEMP 98
[2021-10-04 14:19] LABS: HEMATOCRIT 37.8 % (32.4-45.2); HEMOGLOBIN 12.5 GM/dL (10.7-15.3); MCH 32.3 pg (25.7-33.7); MCHC 32.9 g/dl (32.0-36.0); MEAN PLT VOLUME 8.6 fl (7.5-11.1); PLATELET COUNT 156 10^3/uL (134-434); RBC 3.86 M/mm3 (3.60-5.2); WHITE BLOOD COUNT 3.6 K/mm3 (4.0-10.0)
[2021-10-04 14:36] LABS: CHLORIDE 96 mmol/L (98-107); SODIUM 137 mmol/L (136-145)
[2021-10-04 14:38] LABS: CALCIUM 9.4 mg/dL (8.5-10.1)
[2021-10-04 14:39] LABS: ALBUMIN 3.4 g/dl (3.4-5.0); ANION GAP 11 MMOL/L (8-16); BLOOD UREA NITROGEN 24.8 mg/dL (7-18); CO2 30 mmol/L (21-32); GLUCOSE,RANDOM 207 mg/dL (74-106)
[2021-10-04 14:42] LABS: CREATININE 3.3 mg/dL (0.55-1.3); SGOT/AST 11 U/L (15-37)
[2021-10-04 14:44] LABS: BILIRUBIN,TOTAL 0.4 mg/dL (0.2-1); TOT PROT 6.7 g/dl (6.4-8.2)
[2021-10-04 14:47] LABS: ALK PHOS 82 U/L (45-117); SGPT/ALT < 6 U/L (13-61)
[2021-10-04 15:25] VITALS: PULSE 82
[2021-10-04 16:24] VITALS: BP 142/72
[2021-10-05] MEDS ORDERED: CEFUROXIME AXETIL 500 MG TABLET PO SCH (10:00)
== END 2021-10-04 17:42 | disposition home or self-care (01) | DRG 637 ==
LOC: JER 09:29 → JERBED 12:08 → J5S 21:23 → OBSVTOIN 10-02 14:33
PROVIDERS: ADMIT Internal Medicine; ATTEND Internal Medicine
DX: E11.65 Type 2 diabetes mellitus with hyperglycemia (principal); N18.6 End stage renal disease; D68.2 Hereditary deficiency of other clotting factors; I13.2 Hypertensive heart and chronic kidney disease with heart failure and with stage 5 chronic kidney disease, or end stage renal disease; I50.22 Chronic systolic (congestive) heart failure; N39.0 Urinary tract infection, site not specified; E11.43 Type 2 diabetes mellitus with diabetic autonomic (poly)neuropathy; K31.84 Gastroparesis; G20 Parkinson's disease; E03.9 Hypothyroidism, unspecified; E87.70 Fluid overload, unspecified; I25.10 Atherosclerotic heart disease of native coronary artery without angina pectoris; Z95.1 Presence of aortocoronary bypass graft; Z91.19 Patient's noncompliance with other medical treatment and regimen; K21.9 Gastro-esophageal reflux disease without esophagitis
CPT/HCPCS: 36415; 71045-TC-FY; 80048; 80053; 81003; 82010; 82550; 82553; 82803; 82962; 83735; 84100; 84484; 85025; 85027; 86850; 86900; 86901; 87086; 87186; 93005; 93010; 93970-TC; 99285-25; C9803-CS; G0378; J1644; U0003; U0005

== ENCOUNTER 2021-10-09 07:51 | Inpatient (IN) | payer OTHER ==
[2021-10-09] MEDS ORDERED: SODIUM CHLORIDE 0.9% 500 ML INFUS.BAG IV ONE (08:32)
[2021-10-09 09:37] LABS: BASO % 0.4 % (0-2.0); EOS % 0.6 % (0-4.5); HEMATOCRIT 37.6 % (32.4-45.2); HEMOGLOBIN 12.2 GM/dL (10.7-15.3); LYMPH % 16.6 % (8-40); MCH 32.2 pg (25.7-33.7); MCHC 32.4 g/dl (32.0-36.0); MEAN CELL VOLUME 99.5 fl (80-96); MONO % 11.5 % (3.8-10.2); NEUT % 70.9 % (42.8-82.8); PLATELET COUNT 160 10^3/uL (134-434); RBC 3.78 M/mm3 (3.60-5.2); RDW 15.2 % (11.6-15.6); WHITE BLOOD COUNT 3.9 K/mm3 (4.0-10.0)
[2021-10-09 09:43] LABS: VENOUS BASE EXCESS -1.8 mmol/L (-2-2); VENOUS O2 SATURATION 42.3 % (70-80); VENOUS PCO2 48.4 mmHg (38-52); VENOUS PH 7.324 (7.310-7.410)
[2021-10-09 09:55] LABS: MAGNESIUM 2.3 mg/dL (1.8-2.4)
[2021-10-09 09:59] LABS: PHOSPHOROUS 3.6 mg/dL (2.5-4.9)
[2021-10-09 10:13] LABS: ALBUMIN 3.8 g/dl (3.4-5.0); ALK PHOS 158 U/L (45-117); ANION GAP 14 MMOL/L (8-16); BILIRUBIN,TOTAL 0.5 mg/dL (0.2-1); BLOOD UREA NITROGEN 59.2 mg/dL (7-18); CALCIUM 9.4 mg/dL (8.5-10.1); CHLORIDE 96 mmol/L (98-107); CO2 23 mmol/L (21-32); CREATININE 4.9 mg/dL (0.55-1.3); SGOT/AST 32 U/L (15-37); SGPT/ALT 15 U/L (13-61); SODIUM 132 mmol/L (136-145); TOT PROT 7.4 g/dl (6.4-8.2)
[2021-10-09] MEDS ORDERED: INSULIN REGULAR HUMAN 100 UNITS/ML *VIAL SQ ONE (10:23)
[2021-10-09 10:29] LABS: GLUCOSE,RANDOM 574 mg/dL (74-106)
[2021-10-09] MEDS ORDERED: INSULIN REGULAR HUMAN 100 UNITS/ML *VIAL ONE (10:29)
[2021-10-09 13:24] LABS: EPI CELLS 20 /uL (0-25.1); HYALINE CASTS 0 /uL (0-3.1); PH,URINE 6.5 (5.0-8.0); URINE APPEARANCE CLEAR; URINE BACTERIA 19 /uL (0-1359); URINE BILIRUBIN NEGATIVE (NEGATIVE); URINE COLOR YELLOW; URINE GLUCOSE (UA) 3+ (NEGATIVE); URINE KETONE NEGATIVE (NEGATIVE); URINE LEUK ESTERASE NEGATIVE (NEGATIVE); URINE NITRITE NEGATIVE (NEGATIVE); URINE PROTEIN 2+ (NEGATIVE); URINE RBC 20 /uL (0-23.9); URINE UROBILINOGEN 0.2 mg/dL (0.2-1.0); URINE WBC 9 /uL (0-25.8)
[2021-10-09 14:07] LABS: YEAST FEW PRESENT (NEGATIVE)
[2021-10-09] MEDS ORDERED: SODIUM CHLORIDE 250 ML IV PRN (15:50)
[2021-10-09 17:21] VITALS: RESP 18
[2021-10-09 20:58] VITALS: BMI 22.0
[2021-10-09] MEDS ORDERED: INSULIN (LEVEMIR) 100 UNITS/ML UNITS SQ ONE (23:29)
[2021-10-10] MEDS ORDERED: REMDESIVIR 200 MG in SODIUM CHLORIDE 250 ML IVPB ONE (01:11)
[2021-10-10] MEDS: INSULIN SLIDING SCALE (NOVOLOG) 1 VIAL SQ SCH ×4 (06:03→22:46)
[2021-10-10] MEDS: CARBIDOPA/LEVODOPA 25/100 TABLET (FP) PO SCH ×3 (06:04→22:46)
[2021-10-10] MEDS: FUROSEMIDE 40 MG TABLET (FP) PO SCH ×2 (06:04→15:29)
[2021-10-10] MEDS: HEPARIN NA (PORCINE) 5,000 UNITS/ML 1ML VIAL SQ SCH ×3 (06:06→22:48)
[2021-10-10] MEDS: LEVOTHYROXINE NA 100 MCG TABLET (FP) PO SCH (06:09)
[2021-10-10] MEDS ORDERED: ONDANSETRON 4 MG/2 ML VIAL IVPUSH ONE (06:24)
[2021-10-10] MEDS: SEVELAMER CARBONATE 800 MG TAB (FP) PO SCH ×3 (09:00→17:17)
[2021-10-10] MEDS ORDERED: INSULIN (LEVEMIR) 100 UNITS/ML UNITS SQ SCH (10:00)
[2021-10-10] MEDS: hydrALAZINE HCL 10 MG TABLET PO SCH ×2 (10:11→22:46)
[2021-10-10] MEDS: amLODIPine BESYLATE 2.5 MG TABLET (FP) PO SCH (10:11)
[2021-10-10] MEDS: ASPIRIN COATED 81 MG TABLET.EC PO SCH (10:11)
[2021-10-10] MEDS: CLOPIDOGREL BISULFATE 75 MG TABLET (FP) PO SCH (10:11)
[2021-10-10] MEDS: SPIRONOLACTONE 25 MG TABLET PO SCH (10:11)
[2021-10-10] MEDS: RIVASTIGMINE TARTRATE 1.5 MG CAPSULE PO SCH ×2 (12:21→22:46)
[2021-10-10] MEDS ORDERED: ATORVASTATIN CA 80 MG TABLET (FP) PO SCH (22:00)
[2021-10-11] MEDS ORDERED: SODIUM CHLORIDE 250 ML IV PRN (00:54)
[2021-10-11] MEDS: LEVOTHYROXINE NA 100 MCG TABLET (FP) PO SCH (06:33)
[2021-10-11] MEDS: FUROSEMIDE 40 MG TABLET (FP) PO SCH ×2 (06:33→13:53)
[2021-10-11] MEDS: CARBIDOPA/LEVODOPA 25/100 TABLET (FP) PO SCH ×3 (06:33→13:52)
[2021-10-11] MEDS: HEPARIN NA (PORCINE) 5,000 UNITS/ML 1ML VIAL SQ SCH ×2 (06:34→13:52)
[2021-10-11] MEDS: INSULIN SLIDING SCALE (NOVOLOG) 1 VIAL SQ SCH ×3 (06:35→17:29)
[2021-10-11] MEDS: SEVELAMER CARBONATE 800 MG TAB (FP) PO SCH ×3 (09:32→17:29)
[2021-10-11] MEDS ORDERED: INSULIN (LEVEMIR) 100 UNITS/ML UNITS SQ SCH (10:00)
[2021-10-11] MEDS: ASPIRIN COATED 81 MG TABLET.EC PO SCH (11:30)
[2021-10-11] MEDS: CLOPIDOGREL BISULFATE 75 MG TABLET (FP) PO SCH (11:30)
[2021-10-11] MEDS: RIVASTIGMINE TARTRATE 1.5 MG CAPSULE PO SCH (11:31)
[2021-10-11] MEDS: amLODIPine BESYLATE 2.5 MG TABLET (FP) PO SCH (11:41)
[2021-10-11] MEDS: hydrALAZINE HCL 10 MG TABLET PO SCH (11:44)
[2021-10-11] MEDS: SPIRONOLACTONE 25 MG TABLET PO SCH (11:57)
[2021-10-11 17:03] LABS: BLOOD UREA NITROGEN 40.3 mg/dL (7-18)
[2021-10-11 17:07] LABS: CREATININE 3.7 mg/dL (0.55-1.3)
[2021-10-11 19:45] VITALS: BP 148/70; PULSE 80; TEMP 98.2
== END 2021-10-11 20:10 | disposition home or self-care (01) | DRG 177 ==
LOC: JER 07:51 → JERBED 12:22 → J7W 20:45
PROVIDERS: ADMIT Internal Medicine; ATTEND Internal Medicine
PROC: 5A1D70Z Performance of Urinary Filtration, Intermittent, Less than 6 Hours Per Day (ICD-10-PCS; 2021-10-09)
PROC: XW033E5 Introduction of Remdesivir Anti-infective into Peripheral Vein, Percutaneous Approach, New Technology Group 5 (ICD-10-PCS; principal; 2021-10-10)
PROC: 5A1D70Z Performance of Urinary Filtration, Intermittent, Less than 6 Hours Per Day (ICD-10-PCS; 2021-10-11)
DX: U07.1 COVID-19 (principal); J12.82 Pneumonia due to coronavirus disease 2019; N18.6 End stage renal disease; I13.2 Hypertensive heart and chronic kidney disease with heart failure and with stage 5 chronic kidney disease, or end stage renal disease; I50.22 Chronic systolic (congestive) heart failure; N17.9 Acute kidney failure, unspecified; I25.10 Atherosclerotic heart disease of native coronary artery without angina pectoris; K21.9 Gastro-esophageal reflux disease without esophagitis; K76.0 Fatty (change of) liver, not elsewhere classified; G20 Parkinson's disease; I27.20 Pulmonary hypertension, unspecified; I07.1 Rheumatic tricuspid insufficiency; K44.9 Diaphragmatic hernia without obstruction or gangrene; M10.9 Gout, unspecified; F41.9 Anxiety disorder, unspecified; E11.65 Type 2 diabetes mellitus with hyperglycemia; K43.9 Ventral hernia without obstruction or gangrene; E03.9 Hypothyroidism, unspecified; E11.22 Type 2 diabetes mellitus with diabetic chronic kidney disease; Z99.2 Dependence on renal dialysis; Z95.1 Presence of aortocoronary bypass graft
CPT/HCPCS: 0241U-QW; 36415; 71045-TC-FY; 80048; 80053; 81003; 82010; 82803; 82962; 83735; 84100; 84484; 85025; 87086; 93005; 93010; 97116-GP; 97161-GP; 99285-25; C9399; J1644

== ENCOUNTER 2021-10-31 15:57 | Inpatient (IN) | payer OTHER ==
[2021-10-31 18:07] LABS: VENOUS BASE EXCESS -7.3 mmol/L (-2-2); VENOUS O2 SATURATION 52.5 % (70-80); VENOUS PCO2 36.6 mmHg (38-52); VENOUS PH 7.313 (7.310-7.410)
[2021-10-31 18:42] LABS: BASO % 0.1 % (0-2.0); HEMATOCRIT 43.7 % (32.4-45.2); HEMOGLOBIN 13.9 GM/dL (10.7-15.3); MCH 32.8 pg (25.7-33.7); MCHC 31.7 g/dl (32.0-36.0); MEAN CELL VOLUME 103.4 fl (80-96); MEAN PLT VOLUME 10.3 fl (7.5-11.1); MONO % 5.6 % (3.8-10.2); NEUT % 87.3 % (42.8-82.8); PLATELET COUNT 124 10^3/uL (134-434); RBC 4.23 M/mm3 (3.60-5.2); RDW 16.4 % (11.6-15.6)
[2021-10-31 19:02] LABS: CHLORIDE 84 mmol/L (98-107); SODIUM 124 mmol/L (136-145)
[2021-10-31 19:03] LABS: CALCIUM 9.9 mg/dL (8.5-10.1)
[2021-10-31 19:05] LABS: ALBUMIN 4.1 g/dl (3.4-5.0); ANION GAP 19 MMOL/L (8-16); BLOOD UREA NITROGEN 50.2 mg/dL (7-18); CO2 21 mmol/L (21-32)
[2021-10-31 19:06] LABS: LIPASE 113 U/L (73-393); MAGNESIUM 2.2 mg/dL (1.8-2.4)
[2021-10-31 19:07] LABS: CREATININE 4.9 mg/dL (0.55-1.3); PHOSPHOROUS 4.1 mg/dL (2.5-4.9); SGOT/AST 20 U/L (15-37); SGPT/ALT 19 U/L (13-61)
[2021-10-31 19:09] LABS: BILIRUBIN,TOTAL 1.3 mg/dL (0.2-1); TOT PROT 7.5 g/dl (6.4-8.2)
[2021-10-31 19:11] LABS: ALK PHOS 196 U/L (45-117)
[2021-10-31 19:12] LABS: GLUCOSE,RANDOM 1017 mg/dL (74-106)
[2021-10-31] MEDS ORDERED: ONDANSETRON 4 MG/2 ML VIAL ONE (19:19)
[2021-10-31] MEDS ORDERED: ONDANSETRON 4 MG/2 ML VIAL IVPUSH ONE (19:25)
[2021-10-31] MEDS ORDERED: SODIUM CHLORIDE 0.9% 500 ML INFUS.BAG IV ONE (19:45)
[2021-10-31] MEDS ORDERED: INSULIN REGULAR HUMAN 100 UNITS/ML *VIAL IVPUSH ONE (21:00)
[2021-10-31] MEDS: INSULIN REGULAR 100 UNITS in SODIUM CHLORIDE 99 ML IVPB SCH (21:10)
[2021-10-31] MEDS ORDERED: CHLORHEXIDINE GLUCONATE 4% CLEANSER FOR DECOLONIZATION TP SCH (22:00)
[2021-10-31] MEDS: MUPIROCIN 2% TOPICAL OINTMENT FOR DECOLONIZATION NS SCH (22:00)
[2021-10-31] MEDS: HEPARIN NA (PORCINE) 5,000 UNITS/ML 1ML VIAL SQ SCH (23:28)
[2021-10-31] MEDS: PANTOPRAZOLE SODIUM 40 MG VIAL IVPUSH SCH (23:28)
[2021-10-31 23:30] LABS: INR 2.31 (0.83-1.09); PROTHROMBIN TIME (PATIENT) 26.8 SEC (9.7-13.0)
[2021-10-31 23:33] LABS: ACTIVATED PTT 29.5 SECONDS (25.2-36.5)
[2021-10-31 23:44] LABS: CHLORIDE 87 mmol/L (98-107); SODIUM 125 mmol/L (136-145)
[2021-10-31 23:48] LABS: CALCIUM 9.2 mg/dL (8.5-10.1)
[2021-10-31 23:49] LABS: ANION GAP 14 MMOL/L (8-16); BLOOD UREA NITROGEN 54.3 mg/dL (7-18); CO2 24 mmol/L (21-32)
[2021-10-31 23:51] LABS: CREATININE 5.1 mg/dL (0.55-1.3)
[2021-10-31 23:55] LABS: GLUCOSE,RANDOM 986 mg/dL (74-106)
[2021-11-01] MEDS ORDERED: POTASSIUM CHLORIDE IV STA (00:15)
[2021-11-01] MEDS ORDERED: SODIUM CHLORIDE IV STA (00:15)
[2021-11-01 03:33] LABS: CHLORIDE 94 mmol/L (98-107); SODIUM 133 mmol/L (136-145)
[2021-11-01 03:34] LABS: CALCIUM 9.1 mg/dL (8.5-10.1)
[2021-11-01 03:36] LABS: ANION GAP 15 MMOL/L (8-16); BLOOD UREA NITROGEN 51.9 mg/dL (7-18); CO2 24 mmol/L (21-32)
[2021-11-01 03:42] LABS: GLUCOSE,RANDOM 678 mg/dL (74-106)
[2021-11-01] MEDS ORDERED: ONDANSETRON 4 MG/2 ML VIAL IVPUSH PRN (06:34)
[2021-11-01] MEDS ORDERED: SODIUM CHLORIDE 1,000 ML with POTASSIUM CHLORIDE 40 MEQ IV STA (06:34)
[2021-11-01] MEDS ORDERED: SODIUM CHLORIDE 500 ML IV STA (06:46)
[2021-11-01] MEDS ORDERED: POTASSIUM CHLORIDE 20 MEQ PREMIX IVPB 100 ML IVPB SCH (07:00)
[2021-11-01] MEDS: INSULIN REGULAR 100 UNITS in SODIUM CHLORIDE 99 ML IVPB SCH (07:03)
[2021-11-01 07:34] LABS: BASO % 0.1 % (0-2.0); EOS % 0.1 % (0-4.5); HEMATOCRIT 37.7 % (32.4-45.2); HEMOGLOBIN 12.6 GM/dL (10.7-15.3); LYMPH % 11.6 % (8-40); MCH 32.9 pg (25.7-33.7); MCHC 33.4 g/dl (32.0-36.0); MEAN CELL VOLUME 98.6 fl (80-96); MONO % 12.4 % (3.8-10.2); NEUT % 75.8 % (42.8-82.8); PLATELET COUNT 116 10^3/uL (134-434); RBC 3.82 M/mm3 (3.60-5.2); RDW 15.7 % (11.6-15.6); WHITE BLOOD COUNT 5.4 K/mm3 (4.0-10.0)
[2021-11-01 07:52] LABS: CHLORIDE 95 mmol/L (98-107); SODIUM 133 mmol/L (136-145)
[2021-11-01 07:56] LABS: ALBUMIN 3.4 g/dl (3.4-5.0); ANION GAP 13 MMOL/L (8-16); BLOOD UREA NITROGEN 53.2 mg/dL (7-18); CALCIUM 9.3 mg/dL (8.5-10.1); CO2 24 mmol/L (21-32)
[2021-11-01 07:59] LABS: CREATININE 4.8 mg/dL (0.55-1.3); PHOSPHOROUS 3.1 mg/dL (2.5-4.9); SGOT/AST 16 U/L (15-37); SGPT/ALT 17 U/L (13-61)
[2021-11-01] MEDS: KCL 10 MEQ IVPB 10 MEQ/100 ML INFUS.BAG IVPB SCH ×2 (08:00→09:15)
[2021-11-01 08:01] LABS: BILIRUBIN,TOTAL 0.9 mg/dL (0.2-1); TOT PROT 6.2 g/dl (6.4-8.2)
[2021-11-01 08:06] LABS: ALK PHOS 140 U/L (45-117); GLUCOSE,RANDOM 419 mg/dL (74-106)
[2021-11-01] MEDS: MUPIROCIN 2% TOPICAL OINTMENT FOR DECOLONIZATION NS SCH (09:12)
[2021-11-01] MEDS ORDERED: ACETAMINOPHEN 1000 MG/100 ML BAG IVPB PRN (09:24)
[2021-11-01] MEDS: HEPARIN NA (PORCINE) 5,000 UNITS/ML 1ML VIAL SQ SCH ×2 (09:26→22:10)
[2021-11-01] MEDS: PANTOPRAZOLE SODIUM 40 MG VIAL IVPUSH SCH (09:26)
[2021-11-01] MEDS ORDERED: SODIUM CHLORIDE 250 ML IV PRN (10:07)
[2021-11-01] MEDS ORDERED: INSULIN REGULAR 100 UNITS in SODIUM CHLORIDE 99 ML IVPB SCH (10:33)
[2021-11-01] MEDS ORDERED: DEXTROSE 5%-0.45% SALINE 1,000 ML IV SCH (12:45)
[2021-11-01 14:02] LABS: BLOOD UREA NITROGEN 51.6 mg/dL (7-18); CALCIUM 9.7 mg/dL (8.5-10.1)
[2021-11-01 14:07] LABS: CREATININE 4.4 mg/dL (0.55-1.3)
[2021-11-01] MEDS ORDERED: DEXTROSE 50%-WATER - 25 GM/50 ML VIAL IVPUSH PRN (14:07)
[2021-11-01] MEDS ORDERED: INSULIN (LEVEMIR) 100 UNITS/ML UNITS SQ ONE (15:58)
[2021-11-01] MEDS: INSULIN SLIDING SCALE (NOVOLOG) 1 VIAL SQ SCH ×2 (17:30→22:23)
[2021-11-01] MEDS: SEVELAMER CARBONATE 800 MG TAB (FP) PO SCH (18:30)
[2021-11-01] MEDS ORDERED: hydrALAZINE HCL 10 MG TABLET PO SCH (22:00)
[2021-11-01] MEDS: CARBIDOPA/LEVODOPA 25/100 TABLET (FP) PO SCH (22:10)
[2021-11-01] MEDS: ATORVASTATIN CA 80 MG TABLET (FP) PO SCH ×3 (22:10→22:58)
[2021-11-02] MEDS ORDERED: INSULIN (LEVEMIR) 100 UNITS/ML UNITS SQ SCH (06:00)
[2021-11-02] MEDS: CARBIDOPA/LEVODOPA 25/100 TABLET (FP) PO SCH ×3 (06:16→21:43)
[2021-11-02] MEDS: INSULIN SLIDING SCALE (NOVOLOG) 1 VIAL SQ SCH ×3 (06:37→15:51)
[2021-11-02] MEDS ORDERED: DEXTROSE 50%-WATER 25 GM/50 ML DISP.SYRIN ONE (06:40)
[2021-11-02 07:31] LABS: CHLORIDE 101 mmol/L (98-107); SODIUM 138 mmol/L (136-145)
[2021-11-02 07:35] LABS: ANION GAP 5 MMOL/L (8-16); CALCIUM 9.2 mg/dL (8.5-10.1); CO2 32 mmol/L (21-32)
[2021-11-02 07:39] LABS: CREATININE 2.9 mg/dL (0.55-1.3)
[2021-11-02 07:44] LABS: BLOOD UREA NITROGEN 25.8 mg/dL (7-18); GLUCOSE,RANDOM 49 mg/dL (74-106)
[2021-11-02] MEDS: SEVELAMER CARBONATE 800 MG TAB (FP) PO SCH ×3 (08:31→16:57)
[2021-11-02] MEDS: HEPARIN NA (PORCINE) 5,000 UNITS/ML 1ML VIAL SQ SCH ×2 (10:40→21:43)
[2021-11-02] MEDS: PANTOPRAZOLE 40 MG TABLET PO SCH (10:41)
[2021-11-02] MEDS: ASPIRIN COATED 81 MG TABLET.EC PO SCH (10:41)
[2021-11-02] MEDS: CLOPIDOGREL BISULFATE 75 MG TABLET (FP) PO SCH (10:41)
[2021-11-02] MEDS: amLODIPine BESYLATE 2.5 MG TABLET (FP) PO SCH (10:41)
[2021-11-02] MEDS ORDERED: SODIUM CHLORIDE 250 ML IV PRN (11:46)
[2021-11-02 14:56] VITALS: BMI 23.6
[2021-11-02] MEDS: ATORVASTATIN CA 80 MG TABLET (FP) PO SCH (21:43)
[2021-11-02] MEDS: hydrALAZINE HCL 10 MG TABLET PO SCH (21:51)
[2021-11-03] MEDS: LEVOTHYROXINE NA 100 MCG TABLET (FP) PO SCH (06:03)
[2021-11-03] MEDS: CARBIDOPA/LEVODOPA 25/100 TABLET (FP) PO SCH ×3 (06:03→21:37)
[2021-11-03] MEDS: INSULIN (NOVOLOG) ASPART 100 UNITS/ML 10ML VIAL SQ SCH ×2 (06:50→11:21)
[2021-11-03] MEDS ORDERED: INSULIN (LEVEMIR) 100 UNITS/ML UNITS SQ SCH (07:00)
[2021-11-03 07:39] LABS: HEMATOCRIT 40.8 % (32.4-45.2); HEMOGLOBIN 13.1 GM/dL (10.7-15.3); MCHC 32.1 g/dl (32.0-36.0); MEAN CELL VOLUME 99.6 fl (80-96); MEAN PLT VOLUME 10.2 fl (7.5-11.1); PLATELET COUNT 114 10^3/uL (134-434); RDW 16.2 % (11.6-15.6); WHITE BLOOD COUNT 3.6 K/mm3 (4.0-10.0)
[2021-11-03 07:50] LABS: ALBUMIN 2.9 g/dl (3.4-5.0); BLOOD UREA NITROGEN 33.2 mg/dL (7-18)
[2021-11-03 07:53] LABS: CREATININE 3.3 mg/dL (0.55-1.3)
[2021-11-03 07:55] LABS: BILIRUBIN,TOTAL 0.7 mg/dL (0.2-1); TOT PROT 5.6 g/dl (6.4-8.2)
[2021-11-03] MEDS ORDERED: INSULIN (NOVOLOG) ASPART 100 UNITS/ML 10ML VIAL SQ ONE (08:27)
[2021-11-03] MEDS: SEVELAMER CARBONATE 800 MG TAB (FP) PO SCH ×3 (08:36→17:09)
[2021-11-03] MEDS: ASPIRIN COATED 81 MG TABLET.EC PO SCH (09:03)
[2021-11-03] MEDS: HEPARIN NA (PORCINE) 5,000 UNITS/ML 1ML VIAL SQ SCH ×2 (09:03→21:37)
[2021-11-03] MEDS: PANTOPRAZOLE 40 MG TABLET PO SCH (09:05)
[2021-11-03] MEDS: CLOPIDOGREL BISULFATE 75 MG TABLET (FP) PO SCH (09:05)
[2021-11-03] MEDS: INSULIN SLIDING SCALE (NOVOLOG) 1 VIAL SQ SCH ×2 (11:20→17:08)
[2021-11-03] MEDS: amLODIPine BESYLATE 2.5 MG TABLET (FP) PO SCH (16:18)
[2021-11-03] MEDS: hydrALAZINE HCL 10 MG TABLET PO SCH ×2 (16:18→21:37)
[2021-11-03] MEDS: INSULIN (LEVEMIR) 100 UNITS/ML UNITS SQ SCH (21:37)
[2021-11-03] MEDS: ATORVASTATIN CA 80 MG TABLET (FP) PO SCH (21:37)
[2021-11-04] MEDS: INSULIN (LEVEMIR) 100 UNITS/ML UNITS SQ SCH (06:20)
[2021-11-04] MEDS: CARBIDOPA/LEVODOPA 25/100 TABLET (FP) PO SCH ×2 (06:20→13:01)
[2021-11-04] MEDS: LEVOTHYROXINE NA 100 MCG TABLET (FP) PO SCH (06:20)
[2021-11-04] MEDS: INSULIN SLIDING SCALE (NOVOLOG) 1 VIAL SQ SCH ×2 (06:21→12:55)
[2021-11-04 07:55] LABS: BASO % 0.4 % (0-2.0); EOS % 0.7 % (0-4.5); HEMATOCRIT 38.4 % (32.4-45.2); HEMOGLOBIN 12.6 GM/dL (10.7-15.3); LYMPH % 18.7 % (8-40); MCH 32.4 pg (25.7-33.7); MCHC 32.7 g/dl (32.0-36.0); MEAN CELL VOLUME 99.1 fl (80-96); MEAN PLT VOLUME 9.4 fl (7.5-11.1); MONO % 9.8 % (3.8-10.2); NEUT % 70.4 % (42.8-82.8); PLATELET COUNT 124 10^3/uL (134-434); RBC 3.88 M/mm3 (3.60-5.2); RDW 16.3 % (11.6-15.6); WHITE BLOOD COUNT 4.3 K/mm3 (4.0-10.0)
[2021-11-04 08:17] LABS: BLOOD UREA NITROGEN 20.2 mg/dL (7-18); CALCIUM 8.8 mg/dL (8.5-10.1); MAGNESIUM 1.9 mg/dL (1.8-2.4)
[2021-11-04 08:20] LABS: PHOSPHOROUS 1.7 mg/dL (2.5-4.9)
[2021-11-04 08:21] LABS: CREATININE 2.3 mg/dL (0.55-1.3)
[2021-11-04] MEDS: SEVELAMER CARBONATE 800 MG TAB (FP) PO SCH ×2 (09:42→12:55)
[2021-11-04] MEDS: ASPIRIN COATED 81 MG TABLET.EC PO SCH (09:42)
[2021-11-04] MEDS: amLODIPine BESYLATE 2.5 MG TABLET (FP) PO SCH (09:42)
[2021-11-04] MEDS: CLOPIDOGREL BISULFATE 75 MG TABLET (FP) PO SCH (09:43)
[2021-11-04] MEDS: PANTOPRAZOLE 40 MG TABLET PO SCH (09:43)
[2021-11-04] MEDS: HEPARIN NA (PORCINE) 5,000 UNITS/ML 1ML VIAL SQ SCH (09:43)
[2021-11-04] MEDS: hydrALAZINE HCL 10 MG TABLET PO SCH (09:43)
[2021-11-04] MEDS ORDERED: SODIUM CHLORIDE 250 ML IV PRN (10:22)
[2021-11-04 14:05] VITALS: BP 146/75; PULSE 90; RESP 18; TEMP 97.6
== END 2021-11-04 17:15 | disposition home or self-care (01) | DRG 637 ==
LOC: JER 15:57 → JERBED 18:10 → JICU 21:03
PROVIDERS: ADMIT Internal Medicine Pulmonary Disease; ATTEND Internal Medicine
PROC: 05HB33Z Insertion of Infusion Device into Right Basilic Vein, Percutaneous Approach (ICD-10-PCS; 2021-10-31)
PROC: 5A1D70Z Performance of Urinary Filtration, Intermittent, Less than 6 Hours Per Day (ICD-10-PCS; principal; 2021-11-03)
DX: E11.10 Type 2 diabetes mellitus with ketoacidosis without coma (principal); N18.6 End stage renal disease; U07.1 COVID-19; I13.2 Hypertensive heart and chronic kidney disease with heart failure and with stage 5 chronic kidney disease, or end stage renal disease; E87.1 Hypo-osmolality and hyponatremia; E87.0 Hyperosmolality and hypernatremia; I50.20 Unspecified systolic (congestive) heart failure; I27.20 Pulmonary hypertension, unspecified; E03.9 Hypothyroidism, unspecified; G20 Parkinson's disease; Z99.2 Dependence on renal dialysis; E11.22 Type 2 diabetes mellitus with diabetic chronic kidney disease; I25.10 Atherosclerotic heart disease of native coronary artery without angina pectoris; Z95.1 Presence of aortocoronary bypass graft; K21.9 Gastro-esophageal reflux disease without esophagitis; D69.6 Thrombocytopenia, unspecified; E78.5 Hyperlipidemia, unspecified
CPT/HCPCS: 36415; 71045-TC-FY; 80048; 80053; 82010; 82803; 82962; 83690; 83735; 83930; 84100; 84484; 85025; 85027; 85610; 85730; 86803; 87340; 87522; 93005; 93010; 97116-GP; 97161-GP; 99291; C9803-CS; J1644; U0003; U0005

== ENCOUNTER 2021-11-08 13:45 | Inpatient (IN) | payer OTHER ==
[2021-11-08] MEDS ORDERED: SODIUM CHLORIDE 0.9% 1000 ML INFUS.BAG IV ONE (15:10)
[2021-11-08 15:21] LABS: VENOUS O2 SATURATION 15.1 % (70-80); VENOUS PCO2 45.5 mmHg (38-52); VENOUS PH 7.323 (7.310-7.410)
[2021-11-08 15:27] LABS: BASO % 0.2 % (0-2.0); HEMATOCRIT 40.5 % (32.4-45.2); HEMOGLOBIN 12.6 GM/dL (10.7-15.3); LYMPH % 11.3 % (8-40); MCH 32.5 pg (25.7-33.7); MCHC 31.3 g/dl (32.0-36.0); MONO % 9.9 % (3.8-10.2); NEUT % 78.6 % (42.8-82.8); PLATELET COUNT 146 10^3/uL (134-434); RBC 3.89 M/mm3 (3.60-5.2); RDW 16.3 % (11.6-15.6)
[2021-11-08] MEDS ORDERED: FAMOTIDINE 20 MG/50 ML IVPB 20 MG/50 ML MG IVPB ONE ×2 (15:28→15:32)
[2021-11-08] MEDS ORDERED: ONDANSETRON 4 MG/2 ML VIAL IVPUSH ONE (15:28)
[2021-11-08 15:29] LABS: INR 1.8 (0.83-1.09); PROTHROMBIN TIME (PATIENT) 20.8 SEC (9.7-13.0)
[2021-11-08 15:32] LABS: ACTIVATED PTT 28.8 SECONDS (25.2-36.5); CHLORIDE 89 mmol/L (98-107); SODIUM 125 mmol/L (136-145)
[2021-11-08] MEDS ORDERED: ONDANSETRON 4 MG/2 ML VIAL ONE (15:32)
[2021-11-08 15:35] LABS: ANION GAP 11 MMOL/L (8-16); BLOOD UREA NITROGEN 29.3 mg/dL (7-18); CO2 25 mmol/L (21-32); MAGNESIUM 2.3 mg/dL (1.8-2.4)
[2021-11-08 15:38] LABS: CREATININE 3.8 mg/dL (0.55-1.3); SGOT/AST 32 U/L (15-37); SGPT/ALT 37 U/L (13-61)
[2021-11-08 15:40] LABS: BILIRUBIN,TOTAL 1.3 mg/dL (0.2-1)
[2021-11-08 15:45] LABS: ALBUMIN 4.2 g/dl (3.4-5.0); ALK PHOS 200 U/L (45-117); CALCIUM 10.2 mg/dL (8.5-10.1); GLUCOSE,RANDOM 1075 mg/dL (74-106); TOT PROT 7.7 g/dl (6.4-8.2)
[2021-11-08] MEDS ORDERED: LACTATED RINGERS SOLUTION 1000 ML INFUS.BAG IV ONE (15:55)
[2021-11-08] MEDS ORDERED: INSULIN (NOVOLOG) ASPART 100 UNITS/ML 10ML VIAL SQ ONE (15:56)
[2021-11-08 16:29] LABS: CHLORIDE 94 mmol/L (98-107); SODIUM 131 mmol/L (136-145)
[2021-11-08 16:32] LABS: ANION GAP 13 MMOL/L (8-16); BLOOD UREA NITROGEN 28.4 mg/dL (7-18); CO2 24 mmol/L (21-32)
[2021-11-08 16:35] LABS: CREATININE 3.4 mg/dL (0.55-1.3); SGOT/AST 19 U/L (15-37); SGPT/ALT 28 U/L (13-61)
[2021-11-08 16:37] LABS: BILIRUBIN,TOTAL 0.9 mg/dL (0.2-1); TOT PROT 5.8 g/dl (6.4-8.2)
[2021-11-08 16:47] LABS: ALBUMIN 3.1 g/dl (3.4-5.0); ALK PHOS 143 U/L (45-117); CALCIUM 8.4 mg/dL (8.5-10.1); GLUCOSE,RANDOM 966 mg/dL (74-106)
[2021-11-08] MEDS: Insulin (LOG) Aspart 100 UNITS/ML VIAL SQ SCH ×6 (18:33→23:55)
[2021-11-08] MEDS ORDERED: SODIUM CHLORIDE 250 ML IV PRN (18:48)
[2021-11-08] MEDS ORDERED: INSULIN REGULAR HUMAN 100 UNITS/ML *VIAL IVPUSH STA ×3 (19:24→22:59)
[2021-11-08 21:30] LABS: CHLORIDE 96 mmol/L (98-107); SODIUM 128 mmol/L (136-145)
[2021-11-08 21:31] LABS: CALCIUM 8.9 mg/dL (8.5-10.1)
[2021-11-08 21:32] LABS: ANION GAP 10 MMOL/L (8-16); BLOOD UREA NITROGEN 28.4 mg/dL (7-18); CO2 23 mmol/L (21-32); MAGNESIUM 2.1 mg/dL (1.8-2.4)
[2021-11-08 21:35] LABS: CREATININE 3.5 mg/dL (0.55-1.3); PHOSPHOROUS 3.4 mg/dL (2.5-4.9)
[2021-11-08 21:40] LABS: GLUCOSE,RANDOM 958 mg/dL (74-106)
[2021-11-08] MEDS: CARBIDOPA/LEVODOPA 25/100 TABLET (FP) PO SCH (21:59)
[2021-11-08] MEDS: hydrALAZINE HCL 10 MG TABLET PO SCH (21:59)
[2021-11-08] MEDS: RIVASTIGMINE TARTRATE 1.5 MG CAPSULE PO SCH (21:59)
[2021-11-08] MEDS: HEPARIN NA (PORCINE) 5,000 UNITS/ML 1ML VIAL SQ SCH (21:59)
[2021-11-08] MEDS: ATORVASTATIN CA 80 MG TABLET (FP) PO SCH (21:59)
[2021-11-08] MEDS: MUPIROCIN 2% TOPICAL OINTMENT FOR DECOLONIZATION NS SCH (22:00)
[2021-11-08] MEDS: CHLORHEXIDINE GLUCONATE 4% CLEANSER FOR DECOLONIZATION TP SCH (22:00)
[2021-11-09] MEDS: Insulin (LOG) Aspart 100 UNITS/ML VIAL SQ SCH ×12 (00:55→11:17)
[2021-11-09 01:16] LABS: CHLORIDE 96 mmol/L (98-107); SODIUM 131 mmol/L (136-145)
[2021-11-09 01:17] LABS: CALCIUM 9.4 mg/dL (8.5-10.1)
[2021-11-09 01:18] LABS: ANION GAP 11 MMOL/L (8-16); CO2 24 mmol/L (21-32)
[2021-11-09 01:21] LABS: CREATININE 3.6 mg/dL (0.55-1.3); PHOSPHOROUS 2.6 mg/dL (2.5-4.9)
[2021-11-09 01:35] LABS: GLUCOSE,RANDOM 717 mg/dL (74-106)
[2021-11-09] MEDS ORDERED: INSULIN REGULAR HUMAN 100 UNITS/ML *VIAL IVPUSH STA (01:39)
[2021-11-09] MEDS: HEPARIN NA (PORCINE) 5,000 UNITS/ML 1ML VIAL SQ SCH ×3 (05:16→21:49)
[2021-11-09] MEDS: FUROSEMIDE 40 MG TABLET (FP) PO SCH ×2 (05:17→13:43)
[2021-11-09] MEDS: CARBIDOPA/LEVODOPA 25/100 TABLET (FP) PO SCH ×3 (05:17→21:49)
[2021-11-09] MEDS: LEVOTHYROXINE NA 100 MCG TABLET (FP) PO SCH (06:46)
[2021-11-09 08:13] LABS: BASO % 0.3 % (0-2.0); EOS % 0.5 % (0-4.5); HEMATOCRIT 36.8 % (32.4-45.2); LYMPH % 16.9 % (8-40); MCH 31.9 pg (25.7-33.7); MCHC 32.6 g/dl (32.0-36.0); MEAN CELL VOLUME 97.8 fl (80-96); MEAN PLT VOLUME 10.2 fl (7.5-11.1); MONO % 15.4 % (3.8-10.2); NEUT % 66.9 % (42.8-82.8); PLATELET COUNT 147 10^3/uL (134-434); RBC 3.76 M/mm3 (3.60-5.2); RDW 15.4 % (11.6-15.6); WHITE BLOOD COUNT 5.2 K/mm3 (4.0-10.0)
[2021-11-09 08:31] LABS: ALBUMIN 3.2 g/dl (3.4-5.0); CALCIUM 9.5 mg/dL (8.5-10.1)
[2021-11-09 08:32] LABS: BLOOD UREA NITROGEN 30.9 mg/dL (7-18); MAGNESIUM 1.8 mg/dL (1.8-2.4)
[2021-11-09] MEDS: SEVELAMER CARBONATE 800 MG TAB (FP) PO SCH ×3 (08:32→17:11)
[2021-11-09 08:34] LABS: CREATININE 3.4 mg/dL (0.55-1.3)
[2021-11-09 08:35] LABS: PHOSPHOROUS 2.3 mg/dL (2.5-4.9)
[2021-11-09 08:36] LABS: TOT PROT 6.6 g/dl (6.4-8.2)
[2021-11-09] MEDS: SPIRONOLACTONE 25 MG TABLET PO SCH (11:10)
[2021-11-09] MEDS: hydrALAZINE HCL 10 MG TABLET PO SCH ×2 (11:10→21:49)
[2021-11-09] MEDS: RIVASTIGMINE TARTRATE 1.5 MG CAPSULE PO SCH ×2 (11:10→21:49)
[2021-11-09] MEDS: MUPIROCIN 2% TOPICAL OINTMENT FOR DECOLONIZATION NS SCH ×2 (11:10→21:49)
[2021-11-09] MEDS: ASPIRIN COATED 81 MG TABLET.EC PO SCH (11:10)
[2021-11-09] MEDS: amLODIPine BESYLATE 2.5 MG TABLET (FP) PO SCH (11:11)
[2021-11-09] MEDS: CLOPIDOGREL BISULFATE 75 MG TABLET (FP) PO SCH (11:11)
[2021-11-09] MEDS ORDERED: DEXTROSE 50%-WATER - 25 GM/50 ML VIAL IVPUSH PRN (11:19)
[2021-11-09 12:38] LABS: EPI CELLS >36 /uL (0-25.1); HYALINE CASTS 1 /uL (0-3.1); PH,URINE 6.5 (5.0-8.0); URINE APPEARANCE CLOUDY; URINE BACTERIA 309 /uL (0-1359); URINE BILIRUBIN NEGATIVE (NEGATIVE); URINE COLOR YELLOW; URINE GLUCOSE (UA) 3+ (NEGATIVE); URINE KETONE NEGATIVE (NEGATIVE); URINE LEUK ESTERASE 1+ (NEGATIVE); URINE NITRITE NEGATIVE (NEGATIVE); URINE PROTEIN 2+ (NEGATIVE); URINE RBC 23 /uL (0-23.9); URINE UROBILINOGEN 0.2 mg/dL (0.2-1.0); URINE WBC 230 /uL (0-25.8)
[2021-11-09 13:13] LABS: YEAST NEGATIVE (NEGATIVE)
[2021-11-09] MEDS ORDERED: INSULIN (LEVEMIR) 100 UNITS/ML UNITS SQ ONE ×2 (13:29→20:00)
[2021-11-09] MEDS: INSULIN SLIDING SCALE (NOVOLOG) 1 VIAL SQ SCH ×2 (16:11→22:45)
[2021-11-09] MEDS: ATORVASTATIN CA 80 MG TABLET (FP) PO SCH (21:49)
[2021-11-09] MEDS: CHLORHEXIDINE GLUCONATE 4% CLEANSER FOR DECOLONIZATION TP SCH (21:49)
[2021-11-10] MEDS: FUROSEMIDE 40 MG TABLET (FP) PO SCH ×2 (06:08→13:19)
[2021-11-10] MEDS: CARBIDOPA/LEVODOPA 25/100 TABLET (FP) PO SCH ×3 (06:08→21:55)
[2021-11-10] MEDS: LEVOTHYROXINE NA 100 MCG TABLET (FP) PO SCH (06:08)
[2021-11-10] MEDS: HEPARIN NA (PORCINE) 5,000 UNITS/ML 1ML VIAL SQ SCH ×3 (06:09→21:54)
[2021-11-10] MEDS: INSULIN SLIDING SCALE (NOVOLOG) 1 VIAL SQ SCH ×4 (06:11→21:54)
[2021-11-10] MEDS: INSULIN (LEVEMIR) 100 UNITS/ML UNITS SQ SCH (10:07)
[2021-11-10] MEDS: amLODIPine BESYLATE 2.5 MG TABLET (FP) PO SCH (10:09)
[2021-11-10] MEDS: CLOPIDOGREL BISULFATE 75 MG TABLET (FP) PO SCH (10:09)
[2021-11-10] MEDS: hydrALAZINE HCL 10 MG TABLET PO SCH ×2 (10:09→21:53)
[2021-11-10] MEDS: ASPIRIN COATED 81 MG TABLET.EC PO SCH (10:09)
[2021-11-10] MEDS: SPIRONOLACTONE 25 MG TABLET PO SCH (10:09)
[2021-11-10] MEDS: SEVELAMER CARBONATE 800 MG TAB (FP) PO SCH ×3 (10:09→18:20)
[2021-11-10] MEDS: RIVASTIGMINE TARTRATE 1.5 MG CAPSULE PO SCH ×2 (11:28→21:54)
[2021-11-10] MEDS: INSULIN (NOVOLOG) ASPART 100 UNITS/ML 10ML VIAL SQ SCH ×2 (11:53→18:21)
[2021-11-10 13:11] VITALS: RESP 18
[2021-11-10] MEDS: MUPIROCIN 2% TOPICAL OINTMENT FOR DECOLONIZATION NS SCH (13:18)
[2021-11-10 14:51] VITALS: BMI 23.2
[2021-11-10] MEDS ORDERED: DEXTROSE 50%-WATER 25 GM/50 ML DISP.SYRIN IVPUSH PRN (19:09)
[2021-11-10] MEDS ORDERED: ATORVASTATIN CA 80 MG TABLET (FP) PO SCH (22:00)
[2021-11-10] MEDS ORDERED: CHLORHEXIDINE GLUCONATE 4% CLEANSER FOR DECOLONIZATION TP SCH (22:00)
[2021-11-10] MEDS ORDERED: MUPIROCIN 2% TOPICAL OINTMENT FOR DECOLONIZATION NS SCH (22:00)
[2021-11-11] MEDS: INSULIN SLIDING SCALE (NOVOLOG) 1 VIAL SQ SCH ×2 (06:27→13:21)
[2021-11-11] MEDS: FUROSEMIDE 40 MG TABLET (FP) PO SCH ×2 (06:39→13:22)
[2021-11-11] MEDS: HEPARIN NA (PORCINE) 5,000 UNITS/ML 1ML VIAL SQ SCH ×2 (06:41→13:24)
[2021-11-11] MEDS: CARBIDOPA/LEVODOPA 25/100 TABLET (FP) PO SCH ×2 (06:41→13:24)
[2021-11-11] MEDS ORDERED: LEVOTHYROXINE NA 100 MCG TABLET (FP) PO SCH (07:00)
[2021-11-11] MEDS: INSULIN (LEVEMIR) 100 UNITS/ML UNITS SQ SCH (07:36)
[2021-11-11] MEDS: INSULIN (NOVOLOG) ASPART 100 UNITS/ML 10ML VIAL SQ SCH ×2 (07:37→13:22)
[2021-11-11] MEDS ORDERED: SPIRONOLACTONE 25 MG TABLET PO SCH (10:00)
[2021-11-11] MEDS ORDERED: CLOPIDOGREL BISULFATE 75 MG TABLET (FP) PO SCH (10:00)
[2021-11-11] MEDS ORDERED: amLODIPine BESYLATE 2.5 MG TABLET (FP) PO SCH (10:00)
[2021-11-11] MEDS ORDERED: ASPIRIN COATED 81 MG TABLET.EC PO SCH (10:00)
[2021-11-11] MEDS ORDERED: SODIUM CHLORIDE 250 ML IV PRN (10:37)
[2021-11-11 10:47] LABS: BASO % 0.4 % (0-2.0); EOS % 0.5 % (0-4.5); HEMATOCRIT 36.5 % (32.4-45.2); HEMOGLOBIN 12.3 GM/dL (10.7-15.3); LYMPH % 15.5 % (8-40); MCHC 33.8 g/dl (32.0-36.0); MEAN CELL VOLUME 97.7 fl (80-96); MONO % 10.4 % (3.8-10.2); NEUT % 73.2 % (42.8-82.8); PLATELET COUNT 171 10^3/uL (134-434); RBC 3.74 M/mm3 (3.60-5.2); RDW 16.2 % (11.6-15.6); WHITE BLOOD COUNT 3.9 K/mm3 (4.0-10.0)
[2021-11-11 10:58] LABS: BLOOD UREA NITROGEN 24.2 mg/dL (7-18)
[2021-11-11 11:01] LABS: CREATININE 2.9 mg/dL (0.55-1.3)
[2021-11-11] MEDS ORDERED: oxyCODONE HCL 5 MG TABLET PO PRN (11:40)
[2021-11-11] MEDS: SEVELAMER CARBONATE 800 MG TAB (FP) PO SCH ×2 (13:07→13:23)
[2021-11-11] MEDS: hydrALAZINE HCL 10 MG TABLET PO SCH (13:23)
[2021-11-11] MEDS: RIVASTIGMINE TARTRATE 1.5 MG CAPSULE PO SCH (13:33)
[2021-11-11 15:40] VITALS: BP 163/77; PULSE 78; TEMP 97.9
[2021-11-12] MEDS ORDERED: ISOSORBIDE DINITRATE 5 MG TABLET PO SCH (16:00)
== END 2021-11-11 18:22 | disposition home or self-care (01) | DRG 637 ==
LOC: JER 13:45 → JERBED 16:05 → JICU 18:37 → J5S 11-10 02:48
PROVIDERS: ADMIT Internal Medicine Pulmonary Disease; ATTEND Internal Medicine
PROC: 5A1D70Z Performance of Urinary Filtration, Intermittent, Less than 6 Hours Per Day (ICD-10-PCS; principal; 2021-11-11)
DX: E11.65 Type 2 diabetes mellitus with hyperglycemia (principal); N18.6 End stage renal disease; I13.2 Hypertensive heart and chronic kidney disease with heart failure and with stage 5 chronic kidney disease, or end stage renal disease; I50.22 Chronic systolic (congestive) heart failure; I25.10 Atherosclerotic heart disease of native coronary artery without angina pectoris; E78.5 Hyperlipidemia, unspecified; G20 Parkinson's disease; E03.9 Hypothyroidism, unspecified; J45.909 Unspecified asthma, uncomplicated; Z99.2 Dependence on renal dialysis; Z95.1 Presence of aortocoronary bypass graft; K21.9 Gastro-esophageal reflux disease without esophagitis
CPT/HCPCS: 36415; 71045-TC-FY; 80048; 80053; 81003; 82010; 82803; 82962; 83036; 83735; 83930; 84100; 84439; 84443; 84480; 84484; 85025; 85610; 85730; 87522; 93005; 93010; 93971-TC; 99291; C9803-CS; J1644; U0003; U0005

== ENCOUNTER 2021-11-21 15:04 | Observation (INO) | payer OTHER ==
[2021-11-21 15:50] VITALS: BMI 21.9
[2021-11-21 18:39] LABS: BASO % 0.3 % (0-2.0); EOS % 0.5 % (0-4.5); HEMOGLOBIN 13.4 GM/dL (10.7-15.3); LYMPH % 20.4 % (8-40); MCH 32.4 pg (25.7-33.7); MCHC 32.6 g/dl (32.0-36.0); MEAN CELL VOLUME 99.2 fl (80-96); MEAN PLT VOLUME 8.4 fl (7.5-11.1); MONO % 7.6 % (3.8-10.2); NEUT % 71.2 % (42.8-82.8); PLATELET COUNT 190 10^3/uL (134-434); RBC 4.13 M/mm3 (3.60-5.2); RDW 16.4 % (11.6-15.6); WHITE BLOOD COUNT 5.2 K/mm3 (4.0-10.0)
[2021-11-21 18:57] LABS: CHLORIDE 97 mmol/L (98-107); SODIUM 137 mmol/L (136-145)
[2021-11-21 18:59] LABS: ANION GAP 12 MMOL/L (8-16); BLOOD UREA NITROGEN 44.2 mg/dL (7-18); CALCIUM 9.6 mg/dL (8.5-10.1); CO2 28 mmol/L (21-32); GLUCOSE,RANDOM 364 mg/dL (74-106); MAGNESIUM 2.4 mg/dL (1.8-2.4)
[2021-11-21 19:02] LABS: CREATININE 3.9 mg/dL (0.55-1.3); SGOT/AST 23 U/L (15-37)
[2021-11-21 19:04] LABS: BILIRUBIN,TOTAL 0.8 mg/dL (0.2-1); SGPT/ALT 30 U/L (13-61); TOT PROT 7.9 g/dl (6.4-8.2)
[2021-11-21 19:10] LABS: ALBUMIN 4.1 g/dl (3.4-5.0); ALK PHOS 168 U/L (45-117); N-TERMINAL BNP > 35000.0 pg/ml (5-125)
[2021-11-21] MEDS ORDERED: SEVELAMER CARBONATE 800 MG TAB (FP) PO SCH (22:15)
[2021-11-21] MEDS ORDERED: CARBIDOPA/LEVODOPA 25/100 TABLET (FP) ONE (23:54)
[2021-11-21] MEDS ORDERED: HEPARIN NA (PORCINE) 5,000 UNITS/ML 1ML VIAL ONE (23:55)
[2021-11-22] MEDS: HEPARIN NA (PORCINE) 5,000 UNITS/ML 1ML VIAL SQ SCH ×4 (00:08→22:52)
[2021-11-22] MEDS: CARBIDOPA/LEVODOPA 25/100 TABLET (FP) PO SCH ×4 (00:08→22:49)
[2021-11-22] MEDS: RIVASTIGMINE TARTRATE 1.5 MG CAPSULE PO SCH ×3 (00:25→22:49)
[2021-11-22] MEDS ORDERED: ACETAMINOPHEN 1000 MG/100 ML BAG IVPB PRN (00:26)
[2021-11-22] MEDS ORDERED: ACETAMINOPHEN 325 MG TABLET (FP) ONE (00:30)
[2021-11-22] MEDS: INSULIN SLIDING SCALE (NOVOLOG) 1 VIAL SQ SCH ×4 (00:41→22:07)
[2021-11-22] MEDS ORDERED: CARBIDOPA/LEVODOPA 25/100 TABLET (FP) ONE (05:49)
[2021-11-22] MEDS ORDERED: HEPARIN NA (PORCINE) 5,000 UNITS/ML 1ML VIAL ONE (05:49)
[2021-11-22] MEDS ORDERED: LEVOTHYROXINE NA 50 MCG TABLET (FP) ONE (05:49)
[2021-11-22] MEDS ORDERED: FUROSEMIDE 40 MG TABLET (FP) ONE (05:50)
[2021-11-22] MEDS: FUROSEMIDE 40 MG TABLET (FP) PO SCH ×2 (05:59→14:33)
[2021-11-22] MEDS: LEVOTHYROXINE NA 100 MCG TABLET (FP) PO SCH (05:59)
[2021-11-22 10:29] LABS: HEMATOCRIT 35.9 % (32.4-45.2); HEMOGLOBIN 12.1 GM/dL (10.7-15.3); RBC 3.65 M/mm3 (3.60-5.2)
[2021-11-22 10:30] LABS: MCH 33.3 pg (25.7-33.7); MCHC 33.8 g/dl (32.0-36.0); MEAN CELL VOLUME 98.6 fl (80-96); MEAN PLT VOLUME 8.1 fl (7.5-11.1); PLATELET COUNT 160 10^3/uL (134-434); RDW 16.1 % (11.6-15.6)
[2021-11-22] MEDS ORDERED: SODIUM CHLORIDE 250 ML IV PRN (10:42)
[2021-11-22 10:50] LABS: CALCIUM 8.9 mg/dL (8.5-10.1); PHOSPHOROUS 3.8 mg/dL (2.5-4.9)
[2021-11-22 10:51] LABS: CREATININE 3.9 mg/dL (0.55-1.3); MAGNESIUM 2.1 mg/dL (1.8-2.4); TOT PROT 6.3 g/dl (6.4-8.2)
[2021-11-22 10:52] LABS: BILIRUBIN,TOTAL 0.7 mg/dL (0.2-1)
[2021-11-22 11:06] LABS: ALBUMIN 3.2 g/dl (3.4-5.0)
[2021-11-22] MEDS ORDERED: hydrALAZINE HCL 10 MG TABLET ONE (13:19)
[2021-11-22] MEDS ORDERED: CLOPIDOGREL BISULFATE 75 MG TABLET (FP) ONE (13:19)
[2021-11-22] MEDS ORDERED: ASPIRIN COATED 81 MG TABLET.EC ONE (13:19)
[2021-11-22] MEDS ORDERED: amLODIPine BESYLATE 2.5 MG TABLET (FP) ONE (13:20)
[2021-11-22] MEDS ORDERED: SPIRONOLACTONE 25 MG TABLET ONE (13:20)
[2021-11-22] MEDS: SEVELAMER CARBONATE 800 MG TAB (FP) PO SCH ×3 (14:30→18:43)
[2021-11-22] MEDS: SPIRONOLACTONE 25 MG TABLET PO SCH (14:31)
[2021-11-22] MEDS: hydrALAZINE HCL 10 MG TABLET PO SCH ×2 (14:31→22:52)
[2021-11-22] MEDS: amLODIPine BESYLATE 2.5 MG TABLET (FP) PO SCH (14:32)
[2021-11-22] MEDS: CLOPIDOGREL BISULFATE 75 MG TABLET (FP) PO SCH (14:32)
[2021-11-22] MEDS: ASPIRIN COATED 81 MG TABLET.EC PO SCH (14:32)
[2021-11-22] MEDS: ATORVASTATIN CA 80 MG TABLET (FP) PO SCH (22:52)
[2021-11-23] MEDS: LEVOTHYROXINE NA 100 MCG TABLET (FP) PO SCH (06:14)
[2021-11-23] MEDS: HEPARIN NA (PORCINE) 5,000 UNITS/ML 1ML VIAL SQ SCH ×3 (06:14→21:36)
[2021-11-23] MEDS: CARBIDOPA/LEVODOPA 25/100 TABLET (FP) PO SCH ×3 (06:14→21:36)
[2021-11-23] MEDS: FUROSEMIDE 40 MG TABLET (FP) PO SCH ×2 (06:14→15:06)
[2021-11-23] MEDS: INSULIN SLIDING SCALE (NOVOLOG) 1 VIAL SQ SCH ×3 (06:14→17:26)
[2021-11-23] MEDS: SEVELAMER CARBONATE 800 MG TAB (FP) PO SCH ×3 (08:54→17:25)
[2021-11-23] MEDS: CLOPIDOGREL BISULFATE 75 MG TABLET (FP) PO SCH (09:12)
[2021-11-23] MEDS: SPIRONOLACTONE 25 MG TABLET PO SCH (09:12)
[2021-11-23] MEDS: ASPIRIN COATED 81 MG TABLET.EC PO SCH (09:12)
[2021-11-23] MEDS: hydrALAZINE HCL 10 MG TABLET PO SCH ×2 (09:12→21:36)
[2021-11-23] MEDS: amLODIPine BESYLATE 2.5 MG TABLET (FP) PO SCH (09:13)
[2021-11-23] MEDS: RIVASTIGMINE TARTRATE 1.5 MG CAPSULE PO SCH ×2 (10:42→21:36)
[2021-11-23] MEDS: BENZOCAINE/MENTH/CETYLPYRD CL 1 EACH LOZENGE MM PRN (15:07)
[2021-11-23] MEDS: ATORVASTATIN CA 80 MG TABLET (FP) PO SCH (21:36)
[2021-11-24] MEDS: ACETAMINOPHEN 325 MG TABLET (FP) PO PRN ×2 (00:05→08:47)
[2021-11-24] MEDS: CARBIDOPA/LEVODOPA 25/100 TABLET (FP) PO SCH ×2 (06:29→14:39)
[2021-11-24] MEDS: FUROSEMIDE 40 MG TABLET (FP) PO SCH ×2 (06:29→14:39)
[2021-11-24] MEDS: INSULIN SLIDING SCALE (NOVOLOG) 1 VIAL SQ SCH ×3 (06:29→17:31)
[2021-11-24] MEDS: LEVOTHYROXINE NA 100 MCG TABLET (FP) PO SCH (06:29)
[2021-11-24] MEDS: HEPARIN NA (PORCINE) 5,000 UNITS/ML 1ML VIAL SQ SCH ×2 (06:29→14:39)
[2021-11-24 08:34] LABS: CHLORIDE 103 mmol/L (98-107); SODIUM 138 mmol/L (136-145)
[2021-11-24 08:36] LABS: CALCIUM 8.7 mg/dL (8.5-10.1)
[2021-11-24 08:37] LABS: ANION GAP 11 MMOL/L (8-16); BLOOD UREA NITROGEN 29.8 mg/dL (7-18); CO2 24 mmol/L (21-32); GLUCOSE,RANDOM 208 mg/dL (74-106); MAGNESIUM 1.8 mg/dL (1.8-2.4)
[2021-11-24 08:40] LABS: CREATININE 3.1 mg/dL (0.55-1.3); PHOSPHOROUS 2.8 mg/dL (2.5-4.9)
[2021-11-24] MEDS: SEVELAMER CARBONATE 800 MG TAB (FP) PO SCH ×3 (08:47→17:32)
[2021-11-24] MEDS: BENZOCAINE/MENTH/CETYLPYRD CL 1 EACH LOZENGE MM PRN (08:48)
[2021-11-24 09:47] LABS: BASO % 0.4 % (0-2.0); EOS % 0.6 % (0-4.5); HEMATOCRIT 33.2 % (32.4-45.2); HEMOGLOBIN 10.9 GM/dL (10.7-15.3); LYMPH % 26.5 % (8-40); MCH 32.7 pg (25.7-33.7); MCHC 32.9 g/dl (32.0-36.0); MEAN CELL VOLUME 99.3 fl (80-96); MEAN PLT VOLUME 7.8 fl (7.5-11.1); MONO % 10.1 % (3.8-10.2); NEUT % 62.4 % (42.8-82.8); PLATELET COUNT 143 10^3/uL (134-434); RBC 3.35 M/mm3 (3.60-5.2); RDW 16.3 % (11.6-15.6); WHITE BLOOD COUNT 3.3 K/mm3 (4.0-10.0)
[2021-11-24 12:01] VITALS: TEMP 97.8
[2021-11-24] MEDS: hydrALAZINE HCL 10 MG TABLET PO SCH (12:10)
[2021-11-24] MEDS: ASPIRIN COATED 81 MG TABLET.EC PO SCH (12:11)
[2021-11-24] MEDS: CLOPIDOGREL BISULFATE 75 MG TABLET (FP) PO SCH (12:11)
[2021-11-24] MEDS: SPIRONOLACTONE 25 MG TABLET PO SCH (12:11)
[2021-11-24] MEDS: amLODIPine BESYLATE 2.5 MG TABLET (FP) PO SCH (12:11)
[2021-11-24] MEDS: RIVASTIGMINE TARTRATE 1.5 MG CAPSULE PO SCH (12:15)
[2021-11-24] MEDS: SUCRALFATE 1 GM/10 ML UNIT DOSE CUPS PO SCH ×2 (14:05→14:40)
[2021-11-24 14:08] VITALS: BP 128/70; PULSE 80; RESP 20
== END 2021-11-24 17:39 | disposition home or self-care (01) ==
LOC: JER 15:04 → JERBED 19:54 → J4W 11-22 18:05
PROVIDERS: ADMIT Internal Medicine; ATTEND Internal Medicine
PROC: 3E033NZ Introduction of Analgesics, Hypnotics, Sedatives into Peripheral Vein, Percutaneous Approach (ICD-10-PCS; principal; 2021-11-21)
PROC: 3E023GC Introduction of Other Therapeutic Substance into Muscle, Percutaneous Approach (ICD-10-PCS; 2021-11-21)
DX: I13.2 Hypertensive heart and chronic kidney disease with heart failure and with stage 5 chronic kidney disease, or end stage renal disease (principal); I25.10 Atherosclerotic heart disease of native coronary artery without angina pectoris; Z95.1 Presence of aortocoronary bypass graft; U07.1 COVID-19; G20 Parkinson's disease; Z98.61 Coronary angioplasty status; E11.22 Type 2 diabetes mellitus with diabetic chronic kidney disease; N18.6 End stage renal disease; Z99.2 Dependence on renal dialysis; Z29.8 Encounter for other specified prophylactic measures
CPT/HCPCS: 36415; 71046-TC-FY; 80048; 80053; 82962; 83735; 83880; 84100; 84484; 85025; 85027; 86140; 93005; 93010; 96372; 96374; 99285-25; C9803-CS; G0378; J1644; U0003; U0005

== ENCOUNTER 2021-11-25 21:37 | Inpatient (IN) | payer OTHER ==
[2021-11-25 22:15] VITALS: RESP 16; BMI 20.9
[2021-11-25] MEDS ORDERED: MAG HYDROX/AL HYDROX/SIMETH -MYLANTA- ORAL SUSPENSION PO ONE (22:26)
[2021-11-25] MEDS ORDERED: FAMOTIDINE 20 MG/50 ML IVPB 20 MG/50 ML MG IVPB ONE ×2 (22:26→22:41)
[2021-11-25] MEDS ORDERED: ACETAMINOPHEN 1000 MG/100 ML BAG IVPB ONE (22:26)
[2021-11-25] MEDS ORDERED: ACETAMINOPHEN INJECTION 100 ML IVPB ONE (22:41)
[2021-11-25] MEDS ORDERED: MAG HYDROX/AL HYDROX/SIMETH 30 ML UNIT-DOSE CUP ONE (22:41)
[2021-11-25 23:20] LABS: BASO % 0.3 % (0-2.0); HEMATOCRIT 22.2 % (32.4-45.2); HEMOGLOBIN 7.4 GM/dL (10.7-15.3); LYMPH % 19.2 % (8-40); MCH 33.5 pg (25.7-33.7); MCHC 33.4 g/dl (32.0-36.0); MEAN CELL VOLUME 100.1 fl (80-96); MEAN PLT VOLUME 8.1 fl (7.5-11.1); MONO % 11.2 % (3.8-10.2); NEUT % 69.3 % (42.8-82.8); PLATELET COUNT 124 10^3/uL (134-434); RBC 2.22 M/mm3 (3.60-5.2); RDW 15.9 % (11.6-15.6); WHITE BLOOD COUNT 3.8 K/mm3 (4.0-10.0)
[2021-11-25 23:33] LABS: CHLORIDE 102 mmol/L (98-107); SODIUM 140 mmol/L (136-145)
[2021-11-25 23:35] LABS: ALBUMIN 2.6 g/dl (3.4-5.0); CALCIUM 8.4 mg/dL (8.5-10.1); LIPASE 40 U/L (73-393)
[2021-11-25 23:36] LABS: ANION GAP 10 MMOL/L (8-16); CO2 28 mmol/L (21-32); GLUCOSE,RANDOM 287 mg/dL (74-106)
[2021-11-25 23:38] LABS: CREATININE 3.2 mg/dL (0.55-1.3); SGOT/AST 14 U/L (15-37); SGPT/ALT 14 U/L (13-61)
[2021-11-25 23:40] LABS: BILIRUBIN,TOTAL 0.7 mg/dL (0.2-1); TOT PROT 5.3 g/dl (6.4-8.2)
[2021-11-25 23:47] LABS: ALK PHOS 76 U/L (45-117); BLOOD UREA NITROGEN 72.3 mg/dL (7-18); LACTIC ACID 2.9 mmol/L (0.4-2.0)
[2021-11-26] MEDS ORDERED: SODIUM CHLORIDE 0.9% 500 ML INFUS.BAG IV ONE (04:15)
[2021-11-26 06:19] VITALS: BP 107/55; PULSE 105; TEMP 98
[2021-11-26] MEDS ORDERED: ACETAMINOPHEN 325 MG TABLET (FP) PO PRN (10:14)
[2021-11-26] MEDS ORDERED: LACTATED RINGERS SOLUTION 1,000 ML IV SCH (10:15)
[2021-11-26] MEDS ORDERED: INSULIN (LEVEMIR) 100 UNITS/ML UNITS SQ SCH (11:45)
[2021-11-26] MEDS: INSULIN SLIDING SCALE (NOVOLOG) 1 VIAL SQ SCH ×2 (11:47→18:32)
[2021-11-26] MEDS: INSULIN (NOVOLOG) ASPART 100 UNITS/ML 10ML VIAL SQ SCH ×2 (11:48→18:32)
[2021-11-26] MEDS: SEVELAMER CARBONATE 800 MG TAB (FP) PO SCH ×2 (13:13→18:33)
[2021-11-26 13:36] LABS: ALBUMIN 3.1 g/dl (3.4-5.0); BLOOD UREA NITROGEN 94.4 mg/dL (7-18)
[2021-11-26 13:39] LABS: CREATININE 3.7 mg/dL (0.55-1.3)
[2021-11-26 13:40] LABS: BILIRUBIN,TOTAL 0.7 mg/dL (0.2-1); TOT PROT 5.7 g/dl (6.4-8.2)
[2021-11-26] MEDS ORDERED: CARBIDOPA/LEVODOPA 25/100 TABLET (FP) PO SCH (14:00)
[2021-11-26] MEDS ORDERED: HEPARIN NA (PORCINE) 5,000 UNITS/ML 1ML VIAL SQ SCH (14:00)
[2021-11-26] MEDS ORDERED: CARBIDOPA/LEVODOPA 25/100 TABLET (FP) ONE (14:44)
[2021-11-26 14:50] LABS: ARTERIAL BLD GAS O2 SATURATION 98.7 % (95-98); ARTERIAL BLOOD GAS BASE EXCESS -1.6 mmol/L (-2-2); ARTERIAL BLOOD GAS PO2 118.5 mmHg (80-100); ARTERIAL BLOOD GAS pH 7.505 (7.350-7.450)
[2021-11-26 15:22] LABS: BASO % 0.2 % (0-2.0); HEMATOCRIT 21.1 % (32.4-45.2); LYMPH % 10.1 % (8-40); MCH 32.2 pg (25.7-33.7); MCHC 32.1 g/dl (32.0-36.0); MEAN CELL VOLUME 100.5 fl (80-96); MEAN PLT VOLUME 8.4 fl (7.5-11.1); MONO % 11.8 % (3.8-10.2); NEUT % 77.9 % (42.8-82.8); PLATELET COUNT 129 10^3/uL (134-434); RDW 16.5 % (11.6-15.6); WHITE BLOOD COUNT 5.9 K/mm3 (4.0-10.0)
[2021-11-26 15:24] LABS: HEMOGLOBIN 6.8 GM/dL (10.7-15.3)
[2021-11-26 15:54] LABS: LACTIC ACID 6.2 mmol/L (0.4-2.0)
[2021-11-26] MEDS ORDERED: PANTOPRAZOLE SODIUM 40 MG VIAL IVPUSH ONE (15:54)
[2021-11-26] MEDS ORDERED: PANTOPRAZOLE SODIUM 40 MG VIAL ONE (15:56)
[2021-11-26] MEDS ORDERED: LACTATED RINGERS SOLUTION 1,000 ML/1,000 ML INFUS.BAG IV SCH (16:00)
[2021-11-26 16:07] LABS: CALCIUM 8.9 mg/dL (8.5-10.1)
[2021-11-26 16:08] LABS: BLOOD UREA NITROGEN 90.5 mg/dL (7-18)
[2021-11-26 16:11] LABS: CREATININE 3.9 mg/dL (0.55-1.3)
[2021-11-26 16:12] LABS: BILIRUBIN,TOTAL 0.5 mg/dL (0.2-1); TOT PROT 5.6 g/dl (6.4-8.2)
[2021-11-26] MEDS ORDERED: PANTOPRAZOLE SODIUM 160 MG in SODIUM CHLORIDE 290 ML IVPB SCH (16:45)
[2021-11-26] MEDS ORDERED: PANTOPRAZOLE SODIUM 80 MG in SODIUM CHLORIDE 100 ML IVPB SCH (16:45)
[2021-11-26 17:19] LABS: ANISOCYTOSIS 2+; MACROCYTOSIS 1+; OVALOCYTE 1+; TARGET CELLS 1+
[2021-11-26] MEDS ORDERED: ATORVASTATIN CA 80 MG TABLET (FP) PO SCH (22:00)
[2021-11-26] MEDS ORDERED: RIVASTIGMINE TARTRATE 1.5 MG CAPSULE PO SCH (22:00)
[2021-11-26] MEDS ORDERED: PANTOPRAZOLE SODIUM 40 MG VIAL IVPUSH SCH (22:00)
[2021-11-27] MEDS ORDERED: LEVOTHYROXINE NA 100 MCG TABLET (FP) PO SCH (07:00)
== END 2021-11-26 18:53 | disposition short-term general hospital (02) | DRG 377 ==
LOC: JER 21:37 → JERBED 11-26 00:53
PROVIDERS: ADMIT Internal Medicine; ATTEND Internal Medicine
PROC: 30233N1 Transfusion of Nonautologous Red Blood Cells into Peripheral Vein, Percutaneous Approach (ICD-10-PCS; principal; 2021-11-26)
DX: K92.2 Gastrointestinal hemorrhage, unspecified (principal); N18.6 End stage renal disease; I13.2 Hypertensive heart and chronic kidney disease with heart failure and with stage 5 chronic kidney disease, or end stage renal disease; E87.2 Acidosis; I50.20 Unspecified systolic (congestive) heart failure; D64.9 Anemia, unspecified; E11.9 Type 2 diabetes mellitus without complications; G20 Parkinson's disease; I25.10 Atherosclerotic heart disease of native coronary artery without angina pectoris; Z95.1 Presence of aortocoronary bypass graft; K21.9 Gastro-esophageal reflux disease without esophagitis; E78.5 Hyperlipidemia, unspecified; E03.9 Hypothyroidism, unspecified
CPT/HCPCS: 0241U-QW; 36415; 36430; 36600; 70450-TC; 71045-TC-FY; 74176-TC; 80053; 82272; 82803; 82962; 83605; 83690; 84484; 85025; 86922; 93005; 93010; 93971-TC; 99285-25; P9058

== ENCOUNTER 2021-12-23 12:23 | Inpatient (IN) | payer OTHER ==
[2021-12-23 14:24] LABS: VENOUS BASE EXCESS -6.9 mmol/L (-2-2); VENOUS O2 SATURATION 30.1 % (70-80); VENOUS PCO2 51.5 mmHg (38-52); VENOUS PH 7.227 (7.310-7.410)
[2021-12-23 14:26] LABS: BASO % 0.2 % (0-2.0); EOS % 0.2 % (0-4.5); HEMATOCRIT 39.9 % (32.4-45.2); HEMOGLOBIN 12.8 GM/dL (10.7-15.3); LYMPH % 6.7 % (8-40); MCH 32.8 pg (25.7-33.7); MEAN CELL VOLUME 102.5 fl (80-96); MEAN PLT VOLUME 9.3 fl (7.5-11.1); MONO % 8.2 % (3.8-10.2); NEUT % 84.7 % (42.8-82.8); PLATELET COUNT 193 10^3/uL (134-434); RDW 18.8 % (11.6-15.6); WHITE BLOOD COUNT 4.4 K/mm3 (4.0-10.0)
[2021-12-23 14:33] LABS: INR 1.56 (0.83-1.09)
[2021-12-23 14:36] LABS: ACTIVATED PTT 33.5 SECONDS (25.2-36.5)
[2021-12-23 14:45] LABS: CHLORIDE 90 mmol/L (98-107); SODIUM 129 mmol/L (136-145)
[2021-12-23 14:50] LABS: ALBUMIN 3.9 g/dl (3.4-5.0); ANION GAP 16 MMOL/L (8-16); BLOOD UREA NITROGEN 68.7 mg/dL (7-18); CALCIUM 9.7 mg/dL (8.5-10.1); CO2 23 mmol/L (21-32); LIPASE 119 U/L (73-393); MAGNESIUM 2.5 mg/dL (1.8-2.4)
[2021-12-23 14:53] LABS: CREATININE 4.5 mg/dL (0.55-1.3); SGOT/AST 17 U/L (15-37); SGPT/ALT 38 U/L (13-61)
[2021-12-23 14:54] LABS: PHOSPHOROUS 4.6 mg/dL (2.5-4.9); TOT PROT 7.6 g/dl (6.4-8.2)
[2021-12-23 14:56] LABS: ALK PHOS 217 U/L (45-117)
[2021-12-23 14:58] LABS: GLUCOSE,RANDOM 783 mg/dL (74-106)
[2021-12-23] MEDS ORDERED: INSULIN REGULAR HUMAN 100 UNITS/ML *VIAL SQ ONE ×2 (15:19→16:28)
[2021-12-23] MEDS ORDERED: SODIUM CHLORIDE 0.45% 500 ML IV SCH (16:45)
[2021-12-23 20:02] LABS: VENOUS BASE EXCESS -4.4 mmol/L (-2-2); VENOUS O2 SATURATION 24.3 % (70-80); VENOUS PCO2 60.6 mmHg (38-52); VENOUS PH 7.216 (7.310-7.410)
[2021-12-23 20:12] LABS: CHLORIDE 96 mmol/L (98-107); SODIUM 134 mmol/L (136-145)
[2021-12-23 20:14] LABS: BLOOD UREA NITROGEN 65.3 mg/dL (7-18); CO2 26 mmol/L (21-32)
[2021-12-23 20:17] LABS: ANION GAP 12 MMOL/L (8-16); CREATININE 4.6 mg/dL (0.55-1.3)
[2021-12-23] MEDS ORDERED: SODIUM CHLORIDE 0.9% 1000 ML INFUS.BAG IV ONE (20:33)
[2021-12-23 20:42] LABS: GLUCOSE,RANDOM 601 mg/dL (74-106)
[2021-12-23] MEDS ORDERED: INSULIN REGULAR 100 UNITS in SODIUM CHLORIDE 99 ML IVPB SCH (20:45)
[2021-12-23] MEDS ORDERED: SODIUM CHLORIDE 1,000 ML IV STA ×2 (20:56→21:33)
[2021-12-23] MEDS ORDERED: INSULIN REGULAR HUMAN 100 UNITS/ML *VIAL IVPUSH ONE (21:00)
[2021-12-23] MEDS ORDERED: SODIUM CHLORIDE 250 ML IV PRN (21:35)
[2021-12-23] MEDS ORDERED: CHLORHEXIDINE GLUCONATE 4% CLEANSER FOR DECOLONIZATION TP SCH (22:00)
[2021-12-23 22:06] LABS: CALCIUM 9.4 mg/dL (8.5-10.1); CHLORIDE 96 mmol/L (98-107); SODIUM 135 mmol/L (136-145)
[2021-12-23 22:07] LABS: ANION GAP 12 MMOL/L (8-16); BLOOD UREA NITROGEN 66.8 mg/dL (7-18); CO2 27 mmol/L (21-32)
[2021-12-23 22:10] LABS: CREATININE 4.6 mg/dL (0.55-1.3)
[2021-12-23 22:14] LABS: GLUCOSE,RANDOM 480 mg/dL (74-106)
[2021-12-23] MEDS ORDERED: INSULIN (LEVEMIR) 100 UNITS/ML UNITS SQ SCH (23:18)
[2021-12-23] MEDS: MUPIROCIN 2% TOPICAL OINTMENT FOR DECOLONIZATION NS SCH (23:32)
[2021-12-23] MEDS: INSULIN SLIDING SCALE (NOVOLOG) 1 VIAL SQ SCH (23:34)
[2021-12-24] MEDS: INSULIN SLIDING SCALE (NOVOLOG) 1 VIAL SQ SCH ×8 (01:30→22:56)
[2021-12-24] MEDS ORDERED: LEVOTHYROXINE NA 100 MCG TABLET (FP) PO SCH (07:00)
[2021-12-24] MEDS ORDERED: INSULIN SLIDING SCALE (NOVOLOG) 1 VIAL SQ SCH ×2 (07:00→22:00)
[2021-12-24] MEDS: MUPIROCIN 2% TOPICAL OINTMENT FOR DECOLONIZATION NS SCH (09:45)
[2021-12-24 09:47] LABS: HEMATOCRIT 32.8 % (32.4-45.2); MCH 33.1 pg (25.7-33.7); MCHC 33.5 g/dl (32.0-36.0); MEAN CELL VOLUME 98.7 fl (80-96); MEAN PLT VOLUME 8.8 fl (7.5-11.1); PLATELET COUNT 177 10^3/uL (134-434); RBC 3.32 M/mm3 (3.60-5.2); RDW 18.1 % (11.6-15.6); WHITE BLOOD COUNT 5.4 K/mm3 (4.0-10.0)
[2021-12-24] MEDS ORDERED: PANTOPRAZOLE SODIUM 40 MG VIAL IVPUSH SCH (10:00)
[2021-12-24 10:12] LABS: BLOOD UREA NITROGEN 61.1 mg/dL (7-18)
[2021-12-24 10:14] LABS: CALCIUM 8.7 mg/dL (8.5-10.1); MAGNESIUM 1.8 mg/dL (1.8-2.4)
[2021-12-24 10:15] LABS: CREATININE 3.8 mg/dL (0.55-1.3); PHOSPHOROUS 3.4 mg/dL (2.5-4.9)
[2021-12-24 14:53] LABS: EPI CELLS 32 /uL (0-25.1); HYALINE CASTS 3 /uL (0-3.1); PH,URINE 6.5 (5.0-8.0); URINE APPEARANCE CLOUDY; URINE BACTERIA 804 /uL (0-1359); URINE BILIRUBIN NEGATIVE (NEGATIVE); URINE COLOR YELLOW; URINE GLUCOSE (UA) 3+ (NEGATIVE); URINE KETONE NEGATIVE (NEGATIVE); URINE LEUK ESTERASE 2+ (NEGATIVE); URINE NITRITE NEGATIVE (NEGATIVE); URINE PROTEIN 2+ (NEGATIVE); URINE UROBILINOGEN 0.2 mg/dL (0.2-1.0); URINE WBC 960 /uL (0-25.8)
[2021-12-24 15:45] LABS: URINE RBC 26 /uL (0-23.9); YEAST PRESENT/FEW (NEGATIVE)
[2021-12-24 16:10] VITALS: BMI 17.4
[2021-12-24] MEDS ORDERED: SODIUM CHLORIDE 0.9% 1000 ML INFUS.BAG IV ONE (16:40)
[2021-12-24] MEDS ORDERED: INSULIN (NOVOLOG) ASPART 100 UNITS/ML 10ML VIAL ONE (16:43)
[2021-12-24] MEDS ORDERED: MUPIROCIN 2% TOPICAL OINTMENT FOR DECOLONIZATION NS SCH (22:00)
[2021-12-24] MEDS ORDERED: CHLORHEXIDINE GLUCONATE 4% CLEANSER FOR DECOLONIZATION TP SCH (22:00)
[2021-12-24] MEDS: INSULIN (LEVEMIR) 100 UNITS/ML UNITS SQ SCH (22:55)
[2021-12-25] MEDS: INSULIN SLIDING SCALE (NOVOLOG) 1 VIAL SQ SCH ×5 (00:43→23:12)
[2021-12-25] MEDS: LEVOTHYROXINE NA 100 MCG TABLET (FP) PO SCH (06:38)
[2021-12-25 10:11] LABS: CALCIUM 8.9 mg/dL (8.5-10.1)
[2021-12-25 10:12] LABS: MAGNESIUM 1.8 mg/dL (1.8-2.4)
[2021-12-25 10:13] LABS: PHOSPHOROUS 2.4 mg/dL (2.5-4.9)
[2021-12-25 10:15] LABS: BLOOD UREA NITROGEN 33.3 mg/dL (7-18)
[2021-12-25] MEDS: PANTOPRAZOLE SODIUM 40 MG VIAL IVPUSH SCH (10:22)
[2021-12-25] MEDS: HEPARIN NA (PORCINE) 5,000 UNITS/ML 1ML VIAL SQ SCH (22:49)
[2021-12-25] MEDS: INSULIN (LEVEMIR) 100 UNITS/ML UNITS SQ SCH (22:50)
[2021-12-25] MEDS ORDERED: INSULIN (NOVOLOG) ASPART 100 UNITS/ML 10ML VIAL ONE (23:11)
[2021-12-26] MEDS: LEVOTHYROXINE NA 100 MCG TABLET (FP) PO SCH ×2 (05:33→06:09)
[2021-12-26] MEDS: HEPARIN NA (PORCINE) 5,000 UNITS/ML 1ML VIAL SQ SCH ×3 (05:34→22:12)
[2021-12-26] MEDS: INSULIN SLIDING SCALE (NOVOLOG) 1 VIAL SQ SCH ×4 (06:08→22:17)
[2021-12-26] MEDS: PANTOPRAZOLE SODIUM 40 MG VIAL IVPUSH SCH (09:56)
[2021-12-26 11:32] LABS: BASO % 0.4 % (0-2.0); EOS % 0.5 % (0-4.5); HEMATOCRIT 31.5 % (32.4-45.2); HEMOGLOBIN 10.4 GM/dL (10.7-15.3); LYMPH % 21.6 % (8-40); MCH 32.6 pg (25.7-33.7); MCHC 32.9 g/dl (32.0-36.0); MEAN CELL VOLUME 99.1 fl (80-96); MEAN PLT VOLUME 8.5 fl (7.5-11.1); MONO % 11.4 % (3.8-10.2); NEUT % 66.1 % (42.8-82.8); PLATELET COUNT 137 10^3/uL (134-434); RBC 3.18 M/mm3 (3.60-5.2); RDW 18.3 % (11.6-15.6); WHITE BLOOD COUNT 3.4 K/mm3 (4.0-10.0)
[2021-12-26 11:56] LABS: CALCIUM 8.5 mg/dL (8.5-10.1); MAGNESIUM 1.8 mg/dL (1.8-2.4)
[2021-12-26 12:01] LABS: BILIRUBIN,TOTAL 0.6 mg/dL (0.2-1); CREATININE 3.2 mg/dL (0.55-1.3); PHOSPHOROUS 2.7 mg/dL (2.5-4.9)
[2021-12-26 12:23] LABS: ALBUMIN 2.4 g/dl (3.4-5.0); TOT PROT 4.9 g/dl (6.4-8.2)
[2021-12-26] MEDS: INSULIN (LEVEMIR) 100 UNITS/ML UNITS SQ SCH (22:12)
[2021-12-26] MEDS: RIVASTIGMINE TARTRATE 1.5 MG CAPSULE PO SCH (23:15)
[2021-12-27] MEDS: CARBIDOPA/LEVODOPA 25/100 TABLET (FP) PO SCH ×3 (00:38→14:16)
[2021-12-27] MEDS: HEPARIN NA (PORCINE) 5,000 UNITS/ML 1ML VIAL SQ SCH ×2 (05:49→14:16)
[2021-12-27] MEDS: LEVOTHYROXINE NA 100 MCG TABLET (FP) PO SCH ×2 (05:49→06:05)
[2021-12-27] MEDS: INSULIN SLIDING SCALE (NOVOLOG) 1 VIAL SQ SCH ×2 (06:05→12:18)
[2021-12-27 06:33] LABS: EPI CELLS 3 /uL (0-25.1); HYALINE CASTS 1 /uL (0-3.1); URINE APPEARANCE CLEAR; URINE BACTERIA 47 /uL (0-1359); URINE BILIRUBIN NEGATIVE (NEGATIVE); URINE COLOR YELLOW; URINE GLUCOSE (UA) 3+ (NEGATIVE); URINE KETONE NEGATIVE (NEGATIVE); URINE LEUK ESTERASE 2+ (NEGATIVE); URINE NITRITE NEGATIVE (NEGATIVE); URINE PROTEIN 2+ (NEGATIVE); URINE RBC 14 /uL (0-23.9); URINE UROBILINOGEN 0.2 mg/dL (0.2-1.0); URINE WBC 848 /uL (0-25.8)
[2021-12-27] MEDS ORDERED: SODIUM CHLORIDE 250 ML IV PRN (09:00)
[2021-12-27 09:17] VITALS: RESP 18
[2021-12-27 09:55] LABS: BASO % 0.7 % (0-2.0); EOS % 0.4 % (0-4.5); HEMATOCRIT 31.4 % (32.4-45.2); HEMOGLOBIN 10.4 GM/dL (10.7-15.3); LYMPH % 28.6 % (8-40); MCHC 33.3 g/dl (32.0-36.0); MEAN CELL VOLUME 99.3 fl (80-96); MEAN PLT VOLUME 8.9 fl (7.5-11.1); MONO % 11.7 % (3.8-10.2); NEUT % 58.6 % (42.8-82.8); PLATELET COUNT 151 10^3/uL (134-434); RBC 3.16 M/mm3 (3.60-5.2); RDW 18.3 % (11.6-15.6); WHITE BLOOD COUNT 3.8 K/mm3 (4.0-10.0)
[2021-12-27] MEDS ORDERED: ISOSORBIDE MONONITRATE 30 MG TAB.SR.24H (FP) PO SCH (10:00)
[2021-12-27] MEDS ORDERED: ASPIRIN COATED 81 MG TABLET.EC PO SCH (10:00)
[2021-12-27] MEDS ORDERED: amLODIPine BESYLATE 2.5 MG TABLET (FP) PO SCH (10:00)
[2021-12-27] MEDS ORDERED: metoPROLOL SUCCINATE 25 MG TAB.SR.24H (FP) PO SCH (10:00)
[2021-12-27] MEDS: RIVASTIGMINE TARTRATE 1.5 MG CAPSULE PO SCH (10:00)
[2021-12-27] MEDS ORDERED: INSULIN (LEVEMIR) 100 UNITS/ML UNITS SQ SCH ×2 (10:00→10:18)
[2021-12-27] MEDS ORDERED: CLOPIDOGREL BISULFATE 75 MG TABLET (FP) PO SCH (10:00)
[2021-12-27] MEDS: PANTOPRAZOLE SODIUM 40 MG VIAL IVPUSH SCH (10:00)
[2021-12-27] MEDS ORDERED: FOLIC ACID 1 MG TABLET (FP) PO SCH (10:00)
[2021-12-27 10:16] LABS: CALCIUM 8.9 mg/dL (8.5-10.1)
[2021-12-27 10:17] LABS: ALBUMIN 2.7 g/dl (3.4-5.0); BLOOD UREA NITROGEN 43.2 mg/dL (7-18); MAGNESIUM 1.9 mg/dL (1.8-2.4)
[2021-12-27] MEDS ORDERED: DEXTROSE 50%-WATER 25 GM/50 ML DISP.SYRIN IVPUSH ONE (10:18)
[2021-12-27 10:20] LABS: CREATININE 3.4 mg/dL (0.55-1.3); PHOSPHOROUS 2.5 mg/dL (2.5-4.9)
[2021-12-27 10:21] LABS: TOT PROT 5.3 g/dl (6.4-8.2)
[2021-12-27 10:22] LABS: BILIRUBIN,TOTAL 0.6 mg/dL (0.2-1)
[2021-12-27] MEDS ORDERED: PANTOPRAZOLE 40 MG TABLET PO SCH (10:30)
[2021-12-27 10:43] LABS: YEAST PRESENT (NEGATIVE)
[2021-12-27 13:44] VITALS: BP 123/71; PULSE 95; TEMP 98.5
[2021-12-27] MEDS ORDERED: ATORVASTATIN CA 80 MG TABLET (FP) PO SCH (22:00)
== END 2021-12-27 17:18 | disposition home health service (06) | DRG 637 ==
LOC: JER 12:23 → JERBED 15:12 → JICU 21:57 → J6S 12-24 15:53
PROVIDERS: ADMIT Internal Medicine Pulmonary Disease; ATTEND Internal Medicine
PROC: 5A1D70Z Performance of Urinary Filtration, Intermittent, Less than 6 Hours Per Day (ICD-10-PCS; principal; 2021-12-23)
DX: E11.00 Type 2 diabetes mellitus with hyperosmolarity without nonketotic hyperglycemic-hyperosmolar coma (NKHHC) (principal); N18.6 End stage renal disease; I13.2 Hypertensive heart and chronic kidney disease with heart failure and with stage 5 chronic kidney disease, or end stage renal disease; E87.1 Hypo-osmolality and hyponatremia; E87.20 Acidosis, unspecified; I25.10 Atherosclerotic heart disease of native coronary artery without angina pectoris; E11.22 Type 2 diabetes mellitus with diabetic chronic kidney disease; I50.9 Heart failure, unspecified; Z99.2 Dependence on renal dialysis; E78.5 Hyperlipidemia, unspecified; E03.9 Hypothyroidism, unspecified; G20 Parkinson's disease; J45.909 Unspecified asthma, uncomplicated; Z79.4 Long term (current) use of insulin; Z95.1 Presence of aortocoronary bypass graft; I36.1 Nonrheumatic tricuspid (valve) insufficiency; Z86.16 Personal history of COVID-19; I27.20 Pulmonary hypertension, unspecified; E87.5 Hyperkalemia; D63.1 Anemia in chronic kidney disease; K21.9 Gastro-esophageal reflux disease without esophagitis; R10.9 Unspecified abdominal pain
CPT/HCPCS: 0241U-QW; 36415; 71045-TC-FY; 80048; 80053; 81003; 82010; 82607; 82746; 82803; 82962; 83690; 83735; 83930; 84100; 84484; 85025; 85027; 85610; 85730; 86803; 87040; 87086; 87340; 87522; 93005; 93010; 99285-25; J1644

== ENCOUNTER 2022-01-27 15:53 | Inpatient (IN) | payer OTHER ==
[2022-01-27] MEDS ORDERED: INSULIN (LEVEMIR) 100 UNITS/ML UNITS SQ ONE ×2 (16:27→17:14)
[2022-01-27] MEDS ORDERED: BUMETANIDE INJECTION 1 MG/4 ML VIAL IVPUSH ONE (16:30)
[2022-01-27 17:59] LABS: VENOUS BASE EXCESS -2.5 mmol/L (-2-2); VENOUS PCO2 49.5 mmHg (38-52); VENOUS PH 7.308 (7.310-7.410)
[2022-01-27 18:00] LABS: BASO % 0.2 % (0-2.0); HEMATOCRIT 39.9 % (32.4-45.2); HEMOGLOBIN 12.6 GM/dL (10.7-15.3); LYMPH % 8.5 % (8-40); MCH 32.5 pg (25.7-33.7); MCHC 31.6 g/dl (32.0-36.0); MEAN CELL VOLUME 102.9 fl (80-96); MEAN PLT VOLUME 9.5 fl (7.5-11.1); NEUT % 85.3 % (42.8-82.8); PLATELET COUNT 194 10^3/uL (134-434); RBC 3.87 M/mm3 (3.60-5.2); RDW 16.7 % (11.6-15.6)
[2022-01-27 18:15] LABS: EPI CELLS 11 /uL (0-25.1); HYALINE CASTS 0 /uL (0-3.1); URINE APPEARANCE CLOUDY; URINE BACTERIA >9,000 /uL (0-1359); URINE BILIRUBIN NEGATIVE (NEGATIVE); URINE COLOR YELLOW; URINE GLUCOSE (UA) 3+ (NEGATIVE); URINE KETONE NEGATIVE (NEGATIVE); URINE LEUK ESTERASE 2+ (NEGATIVE); URINE NITRITE NEGATIVE (NEGATIVE); URINE PROTEIN 2+ (NEGATIVE); URINE UROBILINOGEN 0.2 mg/dL (0.2-1.0); URINE WBC 1163 /uL (0-25.8)
[2022-01-27 18:16] LABS: INR 2.23 (0.83-1.09); PROTHROMBIN TIME (PATIENT) 25.8 SEC (9.7-13.0)
[2022-01-27 18:19] LABS: ACTIVATED PTT 34.8 SECONDS (25.2-36.5); CHLORIDE 84 mmol/L (98-107); SODIUM 125 mmol/L (136-145)
[2022-01-27 18:21] LABS: ALBUMIN 3.8 g/dl (3.4-5.0); CALCIUM 10.3 mg/dL (8.5-10.1); CO2 24 mmol/L (21-32); MAGNESIUM 2.6 mg/dL (1.8-2.4)
[2022-01-27 18:22] LABS: BLOOD UREA NITROGEN 80.8 mg/dL (7-18)
[2022-01-27] MEDS ORDERED: CEFTRIAXONE 1,000 MG in DEXTROSE 5%-WATER - 50 ML IVPB ONE (18:22)
[2022-01-27 18:24] LABS: CREATININE 5.4 mg/dL (0.55-1.3); SGOT/AST 22 U/L (15-37); SGPT/ALT 31 U/L (13-61)
[2022-01-27] MEDS ORDERED: CEFTRIAXONE 1 GM/50 ML BAG ONE (18:24)
[2022-01-27 18:25] LABS: PHOSPHOROUS 6.6 mg/dL (2.5-4.9)
[2022-01-27 18:26] LABS: BILIRUBIN,TOTAL 0.9 mg/dL (0.2-1); TOT PROT 7.7 g/dl (6.4-8.2)
[2022-01-27 18:27] LABS: ALK PHOS 351 U/L (45-117)
[2022-01-27 18:44] LABS: ANION GAP 16 MMOL/L (8-16); GLUCOSE,RANDOM 1083 mg/dL (74-106)
[2022-01-27] MEDS ORDERED: SODIUM ZIRCONIUM CYCLOSILICATE (LOKELMA) 5 GM PACKET PO ONE (18:46)
[2022-01-27] MEDS ORDERED: CALCIUM GLUCONATE 10% - 1,000 MG/10 ML VIAL IVPB ONE (18:46)
[2022-01-27] MEDS ORDERED: INSULIN REGULAR HUMAN 100 UNITS/ML *VIAL IVPUSH ONE ×2 (18:50→20:19)
[2022-01-27] MEDS ORDERED: SODIUM CHLORIDE 1,000 ML IV SCH (19:00)
[2022-01-27] MEDS ORDERED: CALCIUM GLUC IN NACL, ISO-OSM 1 GM/50 ML BAG IVPB ONE (19:01)
[2022-01-27] MEDS ORDERED: SODIUM ZIRCONIUM CYCLOSILICATE (LOKELMA) 5 GM PACKET ONE (19:01)
[2022-01-27] MEDS: ALBUTEROL SO4 0.083% IH SOL 2.5 MG/3 ML VIAL.NEB. NEB SCH ×4 (19:18→21:00)
[2022-01-27] MEDS ORDERED: ALBUTEROL SO4 0.083% IH SOL 2.5 MG/3 ML VIAL.NEB. NEB ONE ×2 (19:44→21:16)
[2022-01-27] MEDS ORDERED: INSULIN REGULAR HUMAN 100 UNITS/ML *VIAL SQ ONE (21:06)
[2022-01-27] MEDS ORDERED: FLUCONAZOLE 50 MG TABLET PO ONE (21:06)
[2022-01-27] MEDS ORDERED: INSULIN (NOVOLOG) ASPART 100 UNITS/ML 10ML VIAL SQ ONE (21:16)
[2022-01-27] MEDS ORDERED: FLUCONAZOLE 150 MG TABLET PO ONE (21:18)
[2022-01-27 21:21] LABS: CHLORIDE 88 mmol/L (98-107); SODIUM 129 mmol/L (136-145)
[2022-01-27 21:23] LABS: ANION GAP 17 MMOL/L (8-16); BLOOD UREA NITROGEN 83.3 mg/dL (7-18); CALCIUM 9.8 mg/dL (8.5-10.1); CO2 23 mmol/L (21-32)
[2022-01-27 21:27] LABS: CREATININE 5.7 mg/dL (0.55-1.3)
[2022-01-27 22:00] LABS: GLUCOSE,RANDOM 943 mg/dL (74-106)
[2022-01-27] MEDS ORDERED: INSULIN REGULAR HUMAN 100 UNITS/ML *VIAL* (FOR IVP) IVPUSH ONE (22:03)
[2022-01-27] MEDS ORDERED: INSULIN REGULAR 100 UNITS in SODIUM CHLORIDE 99 ML IVPB SCH (22:15)
[2022-01-27 22:19] LABS: YEAST MANY (NEGATIVE)
[2022-01-28] MEDS ORDERED: amLODIPine BESYLATE 2.5 MG TABLET (FP) PO ONE (00:28)
[2022-01-28] MEDS: hydrALAZINE HCL 10 MG TABLET PO SCH ×4 (02:12→21:49)
[2022-01-28] MEDS: ACETAMINOPHEN 325 MG TABLET (FP) PO PRN ×2 (02:48→10:04)
[2022-01-28] MEDS: MUPIROCIN 2% TOPICAL OINTMENT FOR DECOLONIZATION NS SCH ×2 (02:49→21:49)
[2022-01-28] MEDS: CARBIDOPA/LEVODOPA 25/100 TABLET (FP) PO SCH ×3 (06:38→21:50)
[2022-01-28 07:08] LABS: BASO % 1.9 % (0-2.0); EOS % 0.4 % (0-4.5); HEMATOCRIT 31.8 % (32.4-45.2); HEMOGLOBIN 10.3 GM/dL (10.7-15.3); MCH 31.7 pg (25.7-33.7); MCHC 32.5 g/dl (32.0-36.0); MEAN CELL VOLUME 97.7 fl (80-96); MONO % 12.7 % (3.8-10.2); PLATELET COUNT 166 10^3/uL (134-434); RBC 3.25 M/mm3 (3.60-5.2); RDW 16.3 % (11.6-15.6); WHITE BLOOD COUNT 5.8 K/mm3 (4.0-10.0)
[2022-01-28 07:27] LABS: CALCIUM 9.9 mg/dL (8.5-10.1)
[2022-01-28 07:28] LABS: ALBUMIN 3.4 g/dl (3.4-5.0); BLOOD UREA NITROGEN 83.2 mg/dL (7-18); MAGNESIUM 2.2 mg/dL (1.8-2.4)
[2022-01-28 07:31] LABS: CREATININE 5.3 mg/dL (0.55-1.3); PHOSPHOROUS 4.5 mg/dL (2.5-4.9)
[2022-01-28 07:33] LABS: BILIRUBIN,TOTAL 0.5 mg/dL (0.2-1); TOT PROT 6.6 g/dl (6.4-8.2)
[2022-01-28] MEDS ORDERED: amLODIPine BESYLATE 2.5 MG TABLET (FP) PO SCH (10:00)
[2022-01-28] MEDS ORDERED: ASPIRIN COATED 81 MG TABLET.EC PO SCH (10:00)
[2022-01-28] MEDS ORDERED: CEFTRIAXONE 1 GM in DEXTROSE 5%-WATER - 50 ML IVPB SCH (10:00)
[2022-01-28] MEDS ORDERED: CLOPIDOGREL BISULFATE 75 MG TABLET (FP) PO SCH (10:00)
[2022-01-28] MEDS: SEVELAMER CARBONATE 800 MG TAB (FP) PO SCH ×3 (10:06→16:57)
[2022-01-28] MEDS ORDERED: SODIUM CHLORIDE 250 ML IV PRN (12:11)
[2022-01-28] MEDS ORDERED: EPOETIN ALFA-EPBX 4,000 UNIT/ML VIAL IVPUSH ONE (13:00)
[2022-01-28] MEDS ORDERED: HEPARIN NA (PORCINE) 5,000 UNITS/ML 1ML VIAL SQ SCH (14:00)
[2022-01-28] MEDS ORDERED: ATORVASTATIN CA 80 MG TABLET (FP) PO SCH (22:00)
[2022-01-28] MEDS ORDERED: CHLORHEXIDINE GLUCONATE 4% CLEANSER FOR DECOLONIZATION TP SCH (22:00)
[2022-01-28] MEDS: INSULIN SLIDING SCALE (NOVOLOG) 1 VIAL SQ SCH (23:13)
[2022-01-29] MEDS ORDERED: ACETAMINOPHEN 325 MG TABLET (FP) PO PRN (00:35)
[2022-01-29] MEDS ORDERED: SODIUM CHLORIDE 250 ML IV PRN (00:35)
[2022-01-29] MEDS: MUPIROCIN 2% TOPICAL OINTMENT FOR DECOLONIZATION NS SCH (00:43)
[2022-01-29] MEDS: CARBIDOPA/LEVODOPA 25/100 TABLET (FP) PO SCH ×3 (06:43→21:14)
[2022-01-29] MEDS: INSULIN SLIDING SCALE (NOVOLOG) 1 VIAL SQ SCH ×4 (06:43→21:14)
[2022-01-29] MEDS: hydrALAZINE HCL 10 MG TABLET PO SCH ×3 (06:43→21:13)
[2022-01-29 09:43] LABS: BASO % 0.2 % (0-2.0); EOS % 0.8 % (0-4.5); HEMATOCRIT 37.9 % (32.4-45.2); HEMOGLOBIN 12.2 GM/dL (10.7-15.3); LYMPH % 13.3 % (8-40); MCH 31.5 pg (25.7-33.7); MCHC 32.1 g/dl (32.0-36.0); MEAN CELL VOLUME 97.9 fl (80-96); MEAN PLT VOLUME 8.8 fl (7.5-11.1); MONO % 10.4 % (3.8-10.2); NEUT % 75.3 % (42.8-82.8); PLATELET COUNT 203 10^3/uL (134-434); RBC 3.87 M/mm3 (3.60-5.2); RDW 16.4 % (11.6-15.6); WHITE BLOOD COUNT 4.4 K/mm3 (4.0-10.0)
[2022-01-29 09:50] LABS: INR 1.95 (0.83-1.09); PROTHROMBIN TIME (PATIENT) 22.6 SEC (9.7-13.0)
[2022-01-29] MEDS: SEVELAMER CARBONATE 800 MG TAB (FP) PO SCH ×3 (09:52→17:21)
[2022-01-29 09:53] LABS: CHLORIDE 100 mmol/L (98-107); SODIUM 141 mmol/L (136-145)
[2022-01-29] MEDS: amLODIPine BESYLATE 2.5 MG TABLET (FP) PO SCH (09:53)
[2022-01-29] MEDS: ASPIRIN COATED 81 MG TABLET.EC PO SCH (09:53)
[2022-01-29] MEDS: CEFTRIAXONE 1 GM in DEXTROSE 5%-WATER - 50 ML IVPB SCH (09:54)
[2022-01-29] MEDS: CLOPIDOGREL BISULFATE 75 MG TABLET (FP) PO SCH (09:54)
[2022-01-29 09:56] LABS: ALBUMIN 2.9 g/dl (3.4-5.0); CALCIUM 9.6 mg/dL (8.5-10.1)
[2022-01-29 09:57] LABS: ANION GAP 8 MMOL/L (8-16); CO2 32 mmol/L (21-32); GLUCOSE,RANDOM 120 mg/dL (74-106)
[2022-01-29 09:59] LABS: CREATININE 3.4 mg/dL (0.55-1.3); SGPT/ALT < 6 U/L (13-61)
[2022-01-29 10:00] LABS: SGOT/AST 17 U/L (15-37)
[2022-01-29 10:01] LABS: BILIRUBIN,TOTAL 0.6 mg/dL (0.2-1); TOT PROT 6.1 g/dl (6.4-8.2)
[2022-01-29 10:04] LABS: ALK PHOS 174 U/L (45-117); BLOOD UREA NITROGEN 41.4 mg/dL (7-18)
[2022-01-29] MEDS: HEPARIN NA (PORCINE) 5,000 UNITS/ML 1ML VIAL SQ SCH (21:13)
[2022-01-29] MEDS: ATORVASTATIN CA 80 MG TABLET (FP) PO SCH (21:14)
[2022-01-29] MEDS ORDERED: INSULIN (LEVEMIR) 100 UNITS/ML UNITS SQ SCH (22:00)
[2022-01-30] MEDS: CARBIDOPA/LEVODOPA 25/100 TABLET (FP) PO SCH ×3 (05:36→22:31)
[2022-01-30] MEDS: hydrALAZINE HCL 10 MG TABLET PO SCH ×3 (05:36→22:31)
[2022-01-30] MEDS: LEVOTHYROXINE NA 100 MCG TABLET (FP) PO SCH (06:04)
[2022-01-30] MEDS: INSULIN SLIDING SCALE (NOVOLOG) 1 VIAL SQ SCH ×4 (06:04→22:30)
[2022-01-30] MEDS: SEVELAMER CARBONATE 800 MG TAB (FP) PO SCH ×3 (09:42→17:00)
[2022-01-30] MEDS: ESCITALOPRAM OXALATE 10 MG TABLET PO SCH (09:43)
[2022-01-30] MEDS: amLODIPine BESYLATE 2.5 MG TABLET (FP) PO SCH (09:43)
[2022-01-30] MEDS: HEPARIN NA (PORCINE) 5,000 UNITS/ML 1ML VIAL SQ SCH ×2 (09:44→22:30)
[2022-01-30] MEDS: CLOPIDOGREL BISULFATE 75 MG TABLET (FP) PO SCH (09:45)
[2022-01-30] MEDS: ASPIRIN COATED 81 MG TABLET.EC PO SCH (09:45)
[2022-01-30] MEDS: CEFTRIAXONE 1 GM in DEXTROSE 5%-WATER - 50 ML IVPB SCH (09:45)
[2022-01-30 11:19] LABS: BASO % 0.2 % (0-2.0); EOS % 0.6 % (0-4.5); HEMATOCRIT 37.8 % (32.4-45.2); HEMOGLOBIN 12.1 GM/dL (10.7-15.3); LYMPH % 15.2 % (8-40); MCH 31.6 pg (25.7-33.7); MEAN CELL VOLUME 98.7 fl (80-96); MONO % 11.1 % (3.8-10.2); NEUT % 72.9 % (42.8-82.8); PLATELET COUNT 208 10^3/uL (134-434); RBC 3.83 M/mm3 (3.60-5.2); RDW 16.8 % (11.6-15.6); WHITE BLOOD COUNT 4.1 K/mm3 (4.0-10.0)
[2022-01-30 11:31] LABS: ALBUMIN 2.9 g/dl (3.4-5.0); BLOOD UREA NITROGEN 39.6 mg/dL (7-18); CALCIUM 9.2 mg/dL (8.5-10.1); MAGNESIUM 2.2 mg/dL (1.8-2.4)
[2022-01-30 11:34] LABS: CREATININE 3.6 mg/dL (0.55-1.3)
[2022-01-30 11:35] LABS: TOT PROT 6.3 g/dl (6.4-8.2)
[2022-01-30 11:36] LABS: BILIRUBIN,TOTAL 0.5 mg/dL (0.2-1)
[2022-01-30] MEDS: ATORVASTATIN CA 80 MG TABLET (FP) PO SCH (22:31)
[2022-01-31] MEDS: LEVOTHYROXINE NA 100 MCG TABLET (FP) PO SCH (06:25)
[2022-01-31] MEDS: CARBIDOPA/LEVODOPA 25/100 TABLET (FP) PO SCH ×3 (06:25→22:55)
[2022-01-31] MEDS: hydrALAZINE HCL 10 MG TABLET PO SCH ×3 (06:25→22:56)
[2022-01-31] MEDS: INSULIN SLIDING SCALE (NOVOLOG) 1 VIAL SQ SCH ×4 (07:10→22:56)
[2022-01-31] MEDS: CEFTRIAXONE 1 GM in DEXTROSE 5%-WATER - 50 ML IVPB SCH (11:35)
[2022-01-31 12:07] LABS: BASO % 0.3 % (0-2.0); EOS % 0.6 % (0-4.5); HEMATOCRIT 32.1 % (32.4-45.2); HEMOGLOBIN 10.4 GM/dL (10.7-15.3); LYMPH % 20.6 % (8-40); MCH 32.2 pg (25.7-33.7); MCHC 32.4 g/dl (32.0-36.0); MEAN CELL VOLUME 99.4 fl (80-96); MEAN PLT VOLUME 8.8 fl (7.5-11.1); MONO % 11.3 % (3.8-10.2); NEUT % 67.2 % (42.8-82.8); PLATELET COUNT 184 10^3/uL (134-434); RBC 3.23 M/mm3 (3.60-5.2); RDW 16.3 % (11.6-15.6); WHITE BLOOD COUNT 4.2 K/mm3 (4.0-10.0)
[2022-01-31 12:17] LABS: CHLORIDE 102 mmol/L (98-107); SODIUM 140 mmol/L (136-145)
[2022-01-31 12:22] LABS: ALBUMIN 2.9 g/dl (3.4-5.0)
[2022-01-31 12:23] LABS: ANION GAP 11 MMOL/L (8-16); BLOOD UREA NITROGEN 41.6 mg/dL (7-18); CO2 27 mmol/L (21-32); GLUCOSE,RANDOM 124 mg/dL (74-106); MAGNESIUM 2.2 mg/dL (1.8-2.4)
[2022-01-31 12:24] LABS: CREATININE 3.8 mg/dL (0.55-1.3); SGOT/AST 15 U/L (15-37)
[2022-01-31 12:26] LABS: BILIRUBIN,TOTAL 0.4 mg/dL (0.2-1)
[2022-01-31 12:27] LABS: ALK PHOS 124 U/L (45-117)
[2022-01-31 12:41] LABS: SGPT/ALT < 6 U/L (13-61)
[2022-01-31] MEDS: SEVELAMER CARBONATE 800 MG TAB (FP) PO SCH ×3 (14:11→19:04)
[2022-01-31] MEDS: ASPIRIN COATED 81 MG TABLET.EC PO SCH (14:12)
[2022-01-31] MEDS: HEPARIN NA (PORCINE) 5,000 UNITS/ML 1ML VIAL SQ SCH ×2 (14:12→22:55)
[2022-01-31] MEDS: CLOPIDOGREL BISULFATE 75 MG TABLET (FP) PO SCH (14:13)
[2022-01-31] MEDS: amLODIPine BESYLATE 2.5 MG TABLET (FP) PO SCH (14:13)
[2022-01-31] MEDS: ESCITALOPRAM OXALATE 10 MG TABLET PO SCH (14:13)
[2022-01-31] MEDS ORDERED: CEFUROXIME AXETIL 250 MG TABLET PO SCH (22:00)
[2022-01-31] MEDS: ATORVASTATIN CA 80 MG TABLET (FP) PO SCH (22:55)
[2022-02-01] MEDS: hydrALAZINE HCL 10 MG TABLET PO SCH ×3 (07:11→23:40)
[2022-02-01] MEDS: CARBIDOPA/LEVODOPA 25/100 TABLET (FP) PO SCH ×3 (07:11→23:39)
[2022-02-01] MEDS: LEVOTHYROXINE NA 100 MCG TABLET (FP) PO SCH (07:11)
[2022-02-01] MEDS: INSULIN SLIDING SCALE (NOVOLOG) 1 VIAL SQ SCH ×4 (07:12→23:41)
[2022-02-01 10:01] LABS: BASO % 0.2 % (0-2.0); EOS % 0.4 % (0-4.5); HEMATOCRIT 35.1 % (32.4-45.2); HEMOGLOBIN 11.3 GM/dL (10.7-15.3); LYMPH % 22.3 % (8-40); MCH 31.6 pg (25.7-33.7); MEAN CELL VOLUME 98.7 fl (80-96); MEAN PLT VOLUME 8.8 fl (7.5-11.1); MONO % 12.2 % (3.8-10.2); NEUT % 64.9 % (42.8-82.8); PLATELET COUNT 182 10^3/uL (134-434); RBC 3.56 M/mm3 (3.60-5.2); RDW 16.6 % (11.6-15.6); WHITE BLOOD COUNT 4.7 K/mm3 (4.0-10.0)
[2022-02-01 10:26] LABS: CALCIUM 8.5 mg/dL (8.5-10.1)
[2022-02-01] MEDS: HEPARIN NA (PORCINE) 5,000 UNITS/ML 1ML VIAL SQ SCH ×2 (10:26→23:40)
[2022-02-01 10:27] LABS: BLOOD UREA NITROGEN 17.6 mg/dL (7-18); MAGNESIUM 2.2 mg/dL (1.8-2.4)
[2022-02-01] MEDS: amLODIPine BESYLATE 2.5 MG TABLET (FP) PO SCH (10:27)
[2022-02-01] MEDS: SEVELAMER CARBONATE 800 MG TAB (FP) PO SCH ×3 (10:27→17:57)
[2022-02-01] MEDS: ESCITALOPRAM OXALATE 10 MG TABLET PO SCH (10:27)
[2022-02-01] MEDS: CLOPIDOGREL BISULFATE 75 MG TABLET (FP) PO SCH (10:27)
[2022-02-01] MEDS: ASPIRIN COATED 81 MG TABLET.EC PO SCH (10:27)
[2022-02-01 10:30] LABS: CREATININE 2.5 mg/dL (0.55-1.3)
[2022-02-01 10:32] LABS: BILIRUBIN,TOTAL 0.5 mg/dL (0.2-1); TOT PROT 6.3 g/dl (6.4-8.2)
[2022-02-01] MEDS ORDERED: INSULIN (NOVOLOG) ASPART 100 UNITS/ML 10ML VIAL ONE ×2 (11:46→17:02)
[2022-02-01] MEDS ORDERED: ARTIFICIAL TEARS (POLYVINYL ALCOHOL) OPTH DROPS OU PRN (15:10)
[2022-02-01] MEDS: ATORVASTATIN CA 80 MG TABLET (FP) PO SCH (23:40)
[2022-02-02] MEDS: CARBIDOPA/LEVODOPA 25/100 TABLET (FP) PO SCH ×2 (07:22→14:15)
[2022-02-02] MEDS: hydrALAZINE HCL 10 MG TABLET PO SCH ×2 (07:23→14:14)
[2022-02-02] MEDS: LEVOTHYROXINE NA 100 MCG TABLET (FP) PO SCH (07:23)
[2022-02-02] MEDS: INSULIN SLIDING SCALE (NOVOLOG) 1 VIAL SQ SCH ×2 (07:25→11:53)
[2022-02-02] MEDS ORDERED: INSULIN (LEVEMIR) 100 UNITS/ML UNITS SQ ONE (07:40)
[2022-02-02] MEDS: SEVELAMER CARBONATE 800 MG TAB (FP) PO SCH ×2 (08:44→11:57)
[2022-02-02] MEDS ORDERED: SODIUM CHLORIDE 250 ML IV PRN (08:59)
[2022-02-02] MEDS: amLODIPine BESYLATE 2.5 MG TABLET (FP) PO SCH (10:06)
[2022-02-02] MEDS: HEPARIN NA (PORCINE) 5,000 UNITS/ML 1ML VIAL SQ SCH (10:06)
[2022-02-02] MEDS: ASPIRIN COATED 81 MG TABLET.EC PO SCH ×2 (10:06→14:17)
[2022-02-02] MEDS: ESCITALOPRAM OXALATE 10 MG TABLET PO SCH ×2 (10:06→14:16)
[2022-02-02] MEDS: CLOPIDOGREL BISULFATE 75 MG TABLET (FP) PO SCH ×2 (10:07→14:16)
[2022-02-02 10:33] LABS: BASO % 0.5 % (0-2.0); EOS % 0.3 % (0-4.5); HEMATOCRIT 34.4 % (32.4-45.2); HEMOGLOBIN 10.9 GM/dL (10.7-15.3); LYMPH % 19.4 % (8-40); MCH 31.7 pg (25.7-33.7); MCHC 31.8 g/dl (32.0-36.0); MEAN CELL VOLUME 99.6 fl (80-96); MEAN PLT VOLUME 8.8 fl (7.5-11.1); MONO % 10.2 % (3.8-10.2); NEUT % 69.6 % (42.8-82.8); PLATELET COUNT 185 10^3/uL (134-434); RBC 3.45 M/mm3 (3.60-5.2); RDW 16.3 % (11.6-15.6); WHITE BLOOD COUNT 4.8 K/mm3 (4.0-10.0)
[2022-02-02 10:49] VITALS: RESP 18
[2022-02-02 10:52] LABS: ALBUMIN 3.2 g/dl (3.4-5.0)
[2022-02-02 10:55] LABS: CREATININE 2.8 mg/dL (0.55-1.3); MAGNESIUM 2.1 mg/dL (1.8-2.4)
[2022-02-02 10:56] LABS: BLOOD UREA NITROGEN 20.1 mg/dL (7-18)
[2022-02-02 10:57] LABS: BILIRUBIN,TOTAL 1.2 mg/dL (0.2-1)
[2022-02-02 11:01] LABS: TOT PROT 6.4 g/dl (6.4-8.2)
[2022-02-02 16:22] VITALS: BP 138/75; PULSE 88; TEMP 98.4
== END 2022-02-02 16:26 | disposition home health service (06) | DRG 637 ==
LOC: JER 15:53 → JERBED 22:09 → JICU 01-28 00:39 → J8W 01-29 00:27
PROVIDERS: ADMIT Internal Medicine Pulmonary Disease; ATTEND Nurse Practitioner Acute Care
DX: E11.00 Type 2 diabetes mellitus with hyperosmolarity without nonketotic hyperglycemic-hyperosmolar coma (NKHHC) (principal); N18.6 End stage renal disease; E87.1 Hypo-osmolality and hyponatremia; I13.2 Hypertensive heart and chronic kidney disease with heart failure and with stage 5 chronic kidney disease, or end stage renal disease; I50.22 Chronic systolic (congestive) heart failure; E11.69 Type 2 diabetes mellitus with other specified complication; I25.10 Atherosclerotic heart disease of native coronary artery without angina pectoris; G20 Parkinson's disease; E78.5 Hyperlipidemia, unspecified; E03.9 Hypothyroidism, unspecified; E11.22 Type 2 diabetes mellitus with diabetic chronic kidney disease; K21.9 Gastro-esophageal reflux disease without esophagitis; E11.65 Type 2 diabetes mellitus with hyperglycemia; M10.9 Gout, unspecified; R11.2 Nausea with vomiting, unspecified; I07.1 Rheumatic tricuspid insufficiency; F41.9 Anxiety disorder, unspecified; Z95.1 Presence of aortocoronary bypass graft; Z91.14 Patient's other noncompliance with medication regimen; Z79.4 Long term (current) use of insulin
CPT/HCPCS: 36415; 71045-TC-FY; 76937; 80048; 80053; 81003; 82010; 82803; 82962; 83036; 83735; 83880; 84100; 85025; 85610; 85730; 86803; 86850; 86900; 86901; 87086; 87186; 87340; 87522; 93005; 93010; 99291; C9803-CS; J1644; Q5106; U0003; U0005

== ENCOUNTER 2022-02-15 08:53 | Inpatient (IN) | payer OTHER ==
[2022-02-15 09:11] VITALS: BMI 19.5
[2022-02-15] MEDS ORDERED: INSULIN REGULAR HUMAN 100 UNITS/ML *VIAL IVPUSH ONE ×2 (09:24→16:40)
[2022-02-15] MEDS ORDERED: CALCIUM GLUCONATE 10% - 1,000 MG/10 ML VIAL IVPUSH ONE (09:24)
[2022-02-15] MEDS ORDERED: CALCIUM GLUCONATE 10% - 1,000 MG/10 ML VIAL ONE (10:34)
[2022-02-15 11:06] LABS: VENOUS BASE EXCESS 0.4 mmol/L (-2-2); VENOUS O2 SATURATION 47.5 % (70-80); VENOUS PCO2 54.4 mmHg (38-52); VENOUS PH 7.32 (7.310-7.410)
[2022-02-15 11:11] LABS: BASO % 0.2 % (0-2.0); HEMOGLOBIN 12.5 GM/dL (10.7-15.3); LYMPH % 10.8 % (8-40); MCH 31.3 pg (25.7-33.7); MCHC 30.6 g/dl (32.0-36.0); MEAN CELL VOLUME 102.4 fl (80-96); MEAN PLT VOLUME 9.7 fl (7.5-11.1); MONO % 2.8 % (3.8-10.2); NEUT % 86.2 % (42.8-82.8); PLATELET COUNT 180 10^3/uL (134-434); RDW 16.3 % (11.6-15.6); WHITE BLOOD COUNT 4.6 K/mm3 (4.0-10.0)
[2022-02-15 11:13] LABS: INR 1.88 (0.83-1.09); PROTHROMBIN TIME (PATIENT) 21.7 SEC (9.7-13.0)
[2022-02-15 11:15] LABS: ACTIVATED PTT 28.1 SECONDS (25.2-36.5)
[2022-02-15 11:23] LABS: CHLORIDE 94 mmol/L (98-107); SODIUM 137 mmol/L (136-145)
[2022-02-15 11:25] LABS: CALCIUM 10.3 mg/dL (8.5-10.1)
[2022-02-15 11:26] LABS: ALBUMIN 3.2 g/dl (3.4-5.0); ANION GAP 18 MMOL/L (8-16); BLOOD UREA NITROGEN 41.8 mg/dL (7-18); CO2 26 mmol/L (21-32); LIPASE 193 U/L (73-393); MAGNESIUM 2.3 mg/dL (1.8-2.4)
[2022-02-15 11:28] LABS: CREATININE 4.3 mg/dL (0.55-1.3)
[2022-02-15 11:29] LABS: PHOSPHOROUS 3.6 mg/dL (2.5-4.9); SGOT/AST 19 U/L (15-37); SGPT/ALT 16 U/L (13-61)
[2022-02-15 11:30] LABS: BILIRUBIN,TOTAL 0.7 mg/dL (0.2-1); TOT PROT 6.7 g/dl (6.4-8.2)
[2022-02-15 11:32] LABS: ALK PHOS 142 U/L (45-117)
[2022-02-15 11:41] LABS: GLUCOSE,RANDOM 851 mg/dL (74-106)
[2022-02-15] MEDS ORDERED: SODIUM CHLORIDE 0.9% 500 ML INFUS.BAG IV ONE (12:19)
[2022-02-15] MEDS ORDERED: LACTATED RINGERS SOLUTION 1000 ML INFUS.BAG IV ONE ×2 (12:35→12:37)
[2022-02-15 15:42] LABS: CHLORIDE 98 mmol/L (98-107); SODIUM 136 mmol/L (136-145)
[2022-02-15 15:43] LABS: CALCIUM 9.5 mg/dL (8.5-10.1)
[2022-02-15 15:44] LABS: ANION GAP 15 MMOL/L (8-16); BLOOD UREA NITROGEN 40.3 mg/dL (7-18); CO2 23 mmol/L (21-32)
[2022-02-15 15:47] LABS: CREATININE 3.9 mg/dL (0.55-1.3)
[2022-02-15 15:51] LABS: GLUCOSE,RANDOM 715 mg/dL (74-106)
[2022-02-15] MEDS ORDERED: SODIUM CHLORIDE 250 ML IV PRN (16:32)
[2022-02-15 20:36] LABS: CHLORIDE 96 mmol/L (98-107); SODIUM 139 mmol/L (136-145)
[2022-02-15 20:38] LABS: ALBUMIN 3.3 g/dl (3.4-5.0); ANION GAP 16 MMOL/L (8-16); BLOOD UREA NITROGEN 45.3 mg/dL (7-18); CALCIUM 10.5 mg/dL (8.5-10.1); CO2 27 mmol/L (21-32)
[2022-02-15 20:41] LABS: SGPT/ALT 18 U/L (13-61)
[2022-02-15 20:42] LABS: CREATININE 4.5 mg/dL (0.55-1.3); SGOT/AST 15 U/L (15-37)
[2022-02-15 20:43] LABS: BILIRUBIN,TOTAL 0.6 mg/dL (0.2-1); TOT PROT 6.7 g/dl (6.4-8.2)
[2022-02-15 20:44] LABS: ALK PHOS 142 U/L (45-117)
[2022-02-15 20:47] LABS: GLUCOSE,RANDOM 808 mg/dL (74-106)
[2022-02-15] MEDS: INSULIN SLIDING SCALE (NOVOLOG) 1 VIAL SQ SCH (21:47)
[2022-02-15] MEDS: INSULIN (LEVEMIR) 100 UNITS/ML UNITS SQ SCH (21:48)
[2022-02-16] MEDS ORDERED: INSULIN DRIP - PLEASE ORDER UNDER SETS NR ONE (01:28)
[2022-02-16] MEDS ORDERED: INSULIN REGULAR 100 UNITS in SODIUM CHLORIDE 99 ML IVPB SCH (01:30)
[2022-02-16] MEDS ORDERED: INSULIN (LEVEMIR) 100 UNITS/ML UNITS SQ ONE (01:44)
[2022-02-16] MEDS: INSULIN SLIDING SCALE (NOVOLOG) 1 VIAL SQ SCH ×6 (02:17→21:23)
[2022-02-16] MEDS ORDERED: LEVOTHYROXINE NA 125 MCG TABLET (FP) PO SCH (07:00)
[2022-02-16] MEDS: INSULIN (LEVEMIR) 100 UNITS/ML UNITS SQ SCH (10:55)
[2022-02-16] MEDS: SEVELAMER CARBONATE 800 MG TAB (FP) PO SCH ×2 (12:33→17:06)
[2022-02-16 13:09] LABS: BASO % 0.3 % (0-2.0); EOS % 0.2 % (0-4.5); HEMATOCRIT 42.1 % (32.4-45.2); HEMOGLOBIN 13.4 GM/dL (10.7-15.3); LYMPH % 22.3 % (8-40); MCH 31.1 pg (25.7-33.7); MCHC 31.9 g/dl (32.0-36.0); MEAN CELL VOLUME 97.3 fl (80-96); MEAN PLT VOLUME 9.3 fl (7.5-11.1); MONO % 12.9 % (3.8-10.2); NEUT % 64.3 % (42.8-82.8); PLATELET COUNT 174 10^3/uL (134-434); RBC 4.32 M/mm3 (3.60-5.2); RDW 15.8 % (11.6-15.6); WHITE BLOOD COUNT 4.7 K/mm3 (4.0-10.0)
[2022-02-16 13:28] LABS: BLOOD UREA NITROGEN 49.6 mg/dL (7-18); CALCIUM 11.1 mg/dL (8.5-10.1); MAGNESIUM 2.3 mg/dL (1.8-2.4)
[2022-02-16 13:31] LABS: CREATININE 4.4 mg/dL (0.55-1.3)
[2022-02-16 13:33] LABS: BILIRUBIN,TOTAL 0.5 mg/dL (0.2-1); TOT PROT 6.3 g/dl (6.4-8.2)
[2022-02-16] MEDS: hydrALAZINE HCL 10 MG TABLET PO SCH ×2 (16:38→21:16)
[2022-02-16] MEDS: CARBIDOPA/LEVODOPA 25/100 TABLET (FP) PO SCH ×2 (16:39→21:16)
[2022-02-16] MEDS ORDERED: DEXTROSE 50%-WATER 25 GM/50 ML DISP.SYRIN ONE (17:28)
[2022-02-16] MEDS ORDERED: DEXTROSE 50%-WATER - 25 GM/50 ML VIAL IVPUSH ONE (17:48)
[2022-02-16] MEDS: ATORVASTATIN CA 80 MG TABLET (FP) PO SCH (21:16)
[2022-02-16] MEDS ORDERED: INSULIN SLIDING SCALE (NOVOLOG) 1 VIAL SQ SCH (22:17)
[2022-02-17] MEDS ORDERED: DEXTROSE 50%-WATER - 25 GM/50 ML VIAL IVPUSH ONE (00:44)
[2022-02-17] MEDS ORDERED: DEXTROSE 50%-WATER 25 GM/50 ML DISP.SYRIN ONE (01:01)
[2022-02-17] MEDS: DEXTROSE 10%-WATER - 1,000 ML IV SCH (01:18)
[2022-02-17] MEDS: CARBIDOPA/LEVODOPA 25/100 TABLET (FP) PO SCH ×3 (06:17→21:52)
[2022-02-17] MEDS: hydrALAZINE HCL 10 MG TABLET PO SCH ×3 (06:17→21:52)
[2022-02-17] MEDS: LEVOTHYROXINE NA 100 MCG TABLET (FP) PO SCH (06:17)
[2022-02-17] MEDS: INSULIN SLIDING SCALE (NOVOLOG) 1 VIAL SQ SCH ×4 (06:25→21:59)
[2022-02-17 07:57] LABS: BASO % 0.2 % (0-2.0); EOS % 1.1 % (0-4.5); HEMATOCRIT 40.4 % (32.4-45.2); HEMOGLOBIN 12.8 GM/dL (10.7-15.3); LYMPH % 20.8 % (8-40); MCHC 31.6 g/dl (32.0-36.0); MEAN CELL VOLUME 97.9 fl (80-96); MEAN PLT VOLUME 9.3 fl (7.5-11.1); MONO % 14.3 % (3.8-10.2); NEUT % 63.6 % (42.8-82.8); PLATELET COUNT 144 10^3/uL (134-434); RBC 4.13 M/mm3 (3.60-5.2); RDW 15.8 % (11.6-15.6); WHITE BLOOD COUNT 3.9 K/mm3 (4.0-10.0)
[2022-02-17 08:22] LABS: CALCIUM 9.8 mg/dL (8.5-10.1)
[2022-02-17 08:23] LABS: ALBUMIN 2.6 g/dl (3.4-5.0); BLOOD UREA NITROGEN 26.1 mg/dL (7-18)
[2022-02-17 08:26] LABS: CREATININE 2.9 mg/dL (0.55-1.3)
[2022-02-17 08:28] LABS: BILIRUBIN,TOTAL 0.4 mg/dL (0.2-1); TOT PROT 5.7 g/dl (6.4-8.2)
[2022-02-17] MEDS ORDERED: SODIUM CHLORIDE 250 ML IV PRN (09:41)
[2022-02-17] MEDS: ESCITALOPRAM OXALATE 10 MG TABLET PO SCH (10:10)
[2022-02-17] MEDS: CLOPIDOGREL BISULFATE 75 MG TABLET (FP) PO SCH (10:10)
[2022-02-17] MEDS: amLODIPine BESYLATE 2.5 MG TABLET (FP) PO SCH (10:10)
[2022-02-17] MEDS: ASPIRIN COATED 81 MG TABLET.EC PO SCH (10:10)
[2022-02-17] MEDS: SEVELAMER CARBONATE 800 MG TAB (FP) PO SCH ×3 (10:10→17:21)
[2022-02-17] MEDS: ATORVASTATIN CA 80 MG TABLET (FP) PO SCH (21:52)
[2022-02-18] MEDS: LEVOTHYROXINE NA 100 MCG TABLET (FP) PO SCH (06:26)
[2022-02-18] MEDS: hydrALAZINE HCL 10 MG TABLET PO SCH ×3 (06:26→21:07)
[2022-02-18] MEDS: DEXTROSE 10%-WATER - 1,000 ML IV SCH (06:27)
[2022-02-18] MEDS: INSULIN SLIDING SCALE (NOVOLOG) 1 VIAL SQ SCH ×4 (06:27→21:11)
[2022-02-18] MEDS: CARBIDOPA/LEVODOPA 25/100 TABLET (FP) PO SCH ×3 (06:27→21:07)
[2022-02-18] MEDS: INSULIN (LEVEMIR) 100 UNITS/ML UNITS SQ SCH (06:44)
[2022-02-18] MEDS: SEVELAMER CARBONATE 800 MG TAB (FP) PO SCH ×3 (08:39→17:24)
[2022-02-18] MEDS: amLODIPine BESYLATE 2.5 MG TABLET (FP) PO SCH (11:18)
[2022-02-18] MEDS: CLOPIDOGREL BISULFATE 75 MG TABLET (FP) PO SCH (11:22)
[2022-02-18] MEDS: ESCITALOPRAM OXALATE 10 MG TABLET PO SCH (11:22)
[2022-02-18] MEDS: VITAMIN B COMP W-C 1 EA TABLET (NEPHRO-VITE) PO SCH (11:22)
[2022-02-18] MEDS: ASPIRIN COATED 81 MG TABLET.EC PO SCH (11:23)
[2022-02-18 12:39] LABS: BASO % 0.3 % (0-2.0); EOS % 1.1 % (0-4.5); HEMATOCRIT 42.5 % (32.4-45.2); HEMOGLOBIN 13.5 GM/dL (10.7-15.3); MCH 31.2 pg (25.7-33.7); MCHC 31.6 g/dl (32.0-36.0); MEAN CELL VOLUME 98.5 fl (80-96); MEAN PLT VOLUME 8.8 fl (7.5-11.1); MONO % 10.9 % (3.8-10.2); NEUT % 59.7 % (42.8-82.8); PLATELET COUNT 140 10^3/uL (134-434); RBC 4.32 M/mm3 (3.60-5.2); RDW 15.6 % (11.6-15.6); WHITE BLOOD COUNT 3.4 K/mm3 (4.0-10.0)
[2022-02-18 12:52] LABS: BLOOD UREA NITROGEN 32.4 mg/dL (7-18); CALCIUM 9.8 mg/dL (8.5-10.1)
[2022-02-18 12:53] LABS: ALBUMIN 2.9 g/dl (3.4-5.0); MAGNESIUM 2.2 mg/dL (1.8-2.4)
[2022-02-18 12:55] LABS: CREATININE 3.3 mg/dL (0.55-1.3)
[2022-02-18 12:57] LABS: BILIRUBIN,TOTAL 0.7 mg/dL (0.2-1); TOT PROT 6.2 g/dl (6.4-8.2)
[2022-02-18] MEDS: DOCUSATE SODIUM 100 MG CAPSULE (FP) PO SCH ×2 (17:19→21:07)
[2022-02-18] MEDS: ATORVASTATIN CA 80 MG TABLET (FP) PO SCH (21:07)
[2022-02-19] MEDS: DEXTROSE 10%-WATER - 1,000 ML IV SCH (01:27)
[2022-02-19] MEDS ORDERED: SENNOSIDES 8.6MG TABLET (FP) PO PRN (02:13)
[2022-02-19] MEDS: DOCUSATE SODIUM 100 MG CAPSULE (FP) PO SCH ×3 (06:27→21:14)
[2022-02-19] MEDS: CARBIDOPA/LEVODOPA 25/100 TABLET (FP) PO SCH ×3 (06:27→21:13)
[2022-02-19] MEDS: hydrALAZINE HCL 10 MG TABLET PO SCH ×3 (06:27→21:14)
[2022-02-19] MEDS: LEVOTHYROXINE NA 100 MCG TABLET (FP) PO SCH (06:27)
[2022-02-19] MEDS: INSULIN (LEVEMIR) 100 UNITS/ML UNITS SQ SCH (06:29)
[2022-02-19] MEDS: INSULIN SLIDING SCALE (NOVOLOG) 1 VIAL SQ SCH ×4 (06:29→21:14)
[2022-02-19 07:16] LABS: BASO % 0.6 % (0-2.0); EOS % 0.8 % (0-4.5); HEMATOCRIT 38.7 % (32.4-45.2); HEMOGLOBIN 12.6 GM/dL (10.7-15.3); LYMPH % 26.7 % (8-40); MCH 31.9 pg (25.7-33.7); MCHC 32.7 g/dl (32.0-36.0); MEAN CELL VOLUME 97.5 fl (80-96); MEAN PLT VOLUME 9.3 fl (7.5-11.1); MONO % 12.4 % (3.8-10.2); NEUT % 59.5 % (42.8-82.8); PLATELET COUNT 123 10^3/uL (134-434); RBC 3.97 M/mm3 (3.60-5.2); RDW 15.7 % (11.6-15.6)
[2022-02-19 07:34] LABS: CALCIUM 8.5 mg/dL (8.5-10.1)
[2022-02-19 07:35] LABS: ALBUMIN 2.6 g/dl (3.4-5.0); BLOOD UREA NITROGEN 21.8 mg/dL (7-18); MAGNESIUM 1.9 mg/dL (1.8-2.4)
[2022-02-19 07:38] LABS: CREATININE 2.5 mg/dL (0.55-1.3)
[2022-02-19 07:39] LABS: TOT PROT 5.6 g/dl (6.4-8.2)
[2022-02-19 07:40] LABS: BILIRUBIN,TOTAL 0.4 mg/dL (0.2-1)
[2022-02-19] MEDS: CLOPIDOGREL BISULFATE 75 MG TABLET (FP) PO SCH (09:32)
[2022-02-19] MEDS: ESCITALOPRAM OXALATE 10 MG TABLET PO SCH (09:32)
[2022-02-19] MEDS: VITAMIN B COMP W-C 1 EA TABLET (NEPHRO-VITE) PO SCH (09:32)
[2022-02-19] MEDS: amLODIPine BESYLATE 2.5 MG TABLET (FP) PO SCH (09:32)
[2022-02-19] MEDS: SEVELAMER CARBONATE 800 MG TAB (FP) PO SCH ×3 (09:33→17:06)
[2022-02-19] MEDS: ASPIRIN COATED 81 MG TABLET.EC PO SCH (09:33)
[2022-02-19] MEDS: ATORVASTATIN CA 80 MG TABLET (FP) PO SCH (21:14)
[2022-02-20] MEDS: DEXTROSE 10%-WATER - 1,000 ML IV SCH (06:06)
[2022-02-20] MEDS: CARBIDOPA/LEVODOPA 25/100 TABLET (FP) PO SCH ×3 (06:06→21:43)
[2022-02-20] MEDS: DOCUSATE SODIUM 100 MG CAPSULE (FP) PO SCH ×3 (06:07→21:43)
[2022-02-20] MEDS: hydrALAZINE HCL 10 MG TABLET PO SCH ×3 (06:07→21:43)
[2022-02-20] MEDS: INSULIN (LEVEMIR) 100 UNITS/ML UNITS SQ SCH (06:07)
[2022-02-20] MEDS: INSULIN SLIDING SCALE (NOVOLOG) 1 VIAL SQ SCH ×4 (06:08→21:44)
[2022-02-20] MEDS: LEVOTHYROXINE NA 100 MCG TABLET (FP) PO SCH (06:09)
[2022-02-20] MEDS: SEVELAMER CARBONATE 800 MG TAB (FP) PO SCH ×3 (09:00→17:21)
[2022-02-20] MEDS: CLOPIDOGREL BISULFATE 75 MG TABLET (FP) PO SCH (09:02)
[2022-02-20] MEDS: amLODIPine BESYLATE 2.5 MG TABLET (FP) PO SCH (09:02)
[2022-02-20] MEDS: ASPIRIN COATED 81 MG TABLET.EC PO SCH (09:02)
[2022-02-20] MEDS: VITAMIN B COMP W-C 1 EA TABLET (NEPHRO-VITE) PO SCH (09:02)
[2022-02-20] MEDS: ESCITALOPRAM OXALATE 10 MG TABLET PO SCH (09:02)
[2022-02-20] MEDS: ATORVASTATIN CA 80 MG TABLET (FP) PO SCH (21:43)
[2022-02-21] MEDS: CARBIDOPA/LEVODOPA 25/100 TABLET (FP) PO SCH ×3 (06:32→22:30)
[2022-02-21] MEDS: hydrALAZINE HCL 10 MG TABLET PO SCH ×3 (06:32→22:30)
[2022-02-21] MEDS: DEXTROSE 10%-WATER - 1,000 ML IV SCH (06:32)
[2022-02-21] MEDS: DOCUSATE SODIUM 100 MG CAPSULE (FP) PO SCH ×3 (06:33→22:29)
[2022-02-21] MEDS: INSULIN (LEVEMIR) 100 UNITS/ML UNITS SQ SCH (06:36)
[2022-02-21] MEDS: INSULIN SLIDING SCALE (NOVOLOG) 1 VIAL SQ SCH ×4 (06:36→22:31)
[2022-02-21] MEDS: LEVOTHYROXINE NA 100 MCG TABLET (FP) PO SCH (06:37)
[2022-02-21] MEDS: SEVELAMER CARBONATE 800 MG TAB (FP) PO SCH ×3 (08:15→17:43)
[2022-02-21] MEDS ORDERED: SODIUM CHLORIDE 250 ML IV PRN (09:43)
[2022-02-21] MEDS: CLOPIDOGREL BISULFATE 75 MG TABLET (FP) PO SCH (09:57)
[2022-02-21] MEDS: VITAMIN B COMP W-C 1 EA TABLET (NEPHRO-VITE) PO SCH (09:57)
[2022-02-21] MEDS: ESCITALOPRAM OXALATE 10 MG TABLET PO SCH (09:57)
[2022-02-21] MEDS: ASPIRIN COATED 81 MG TABLET.EC PO SCH (09:57)
[2022-02-21] MEDS: amLODIPine BESYLATE 2.5 MG TABLET (FP) PO SCH (09:58)
[2022-02-21 10:13] LABS: BASO % 0.4 % (0-2.0); EOS % 0.2 % (0-4.5); HEMATOCRIT 38.4 % (32.4-45.2); HEMOGLOBIN 12.3 GM/dL (10.7-15.3); LYMPH % 22.5 % (8-40); MCHC 32.1 g/dl (32.0-36.0); MEAN CELL VOLUME 96.7 fl (80-96); MEAN PLT VOLUME 9.7 fl (7.5-11.1); MONO % 11.1 % (3.8-10.2); NEUT % 65.8 % (42.8-82.8); PLATELET COUNT 130 10^3/uL (134-434); RBC 3.97 M/mm3 (3.60-5.2); RDW 15.4 % (11.6-15.6); WHITE BLOOD COUNT 3.9 K/mm3 (4.0-10.0)
[2022-02-21 10:34] LABS: CALCIUM 9.3 mg/dL (8.5-10.1)
[2022-02-21 10:35] LABS: BLOOD UREA NITROGEN 33.8 mg/dL (7-18)
[2022-02-21 10:38] LABS: CREATININE 3.4 mg/dL (0.55-1.3)
[2022-02-21] MEDS: HEPARIN NA (PORCINE) 5,000 UNITS/ML 1ML VIAL SQ SCH (22:30)
[2022-02-21] MEDS: ATORVASTATIN CA 80 MG TABLET (FP) PO SCH (22:30)
[2022-02-22] MEDS: DOCUSATE SODIUM 100 MG CAPSULE (FP) PO SCH ×3 (06:34→21:02)
[2022-02-22] MEDS: INSULIN (LEVEMIR) 100 UNITS/ML UNITS SQ SCH (06:35)
[2022-02-22] MEDS: LEVOTHYROXINE NA 100 MCG TABLET (FP) PO SCH (06:35)
[2022-02-22] MEDS: CARBIDOPA/LEVODOPA 25/100 TABLET (FP) PO SCH ×3 (06:35→21:02)
[2022-02-22] MEDS: hydrALAZINE HCL 10 MG TABLET PO SCH ×3 (06:35→21:02)
[2022-02-22] MEDS: INSULIN SLIDING SCALE (NOVOLOG) 1 VIAL SQ SCH ×4 (06:36→21:02)
[2022-02-22] MEDS: SEVELAMER CARBONATE 800 MG TAB (FP) PO SCH ×3 (08:10→17:22)
[2022-02-22 09:23] LABS: BASO % 0.4 % (0-2.0); EOS % 0.3 % (0-4.5); HEMATOCRIT 36.5 % (32.4-45.2); HEMOGLOBIN 11.6 GM/dL (10.7-15.3); LYMPH % 27.4 % (8-40); MCHC 31.8 g/dl (32.0-36.0); MEAN CELL VOLUME 97.5 fl (80-96); MEAN PLT VOLUME 9.5 fl (7.5-11.1); MONO % 12.3 % (3.8-10.2); NEUT % 59.6 % (42.8-82.8); PLATELET COUNT 130 10^3/uL (134-434); RBC 3.74 M/mm3 (3.60-5.2); RDW 15.1 % (11.6-15.6); WHITE BLOOD COUNT 4.7 K/mm3 (4.0-10.0)
[2022-02-22 09:51] LABS: ALBUMIN 2.8 g/dl (3.4-5.0); CALCIUM 8.8 mg/dL (8.5-10.1); MAGNESIUM 2.1 mg/dL (1.8-2.4)
[2022-02-22 09:52] LABS: BLOOD UREA NITROGEN 20.8 mg/dL (7-18)
[2022-02-22 09:55] LABS: CREATININE 2.2 mg/dL (0.55-1.3)
[2022-02-22 09:56] LABS: BILIRUBIN,TOTAL 0.5 mg/dL (0.2-1); TOT PROT 5.9 g/dl (6.4-8.2)
[2022-02-22] MEDS: ESCITALOPRAM OXALATE 10 MG TABLET PO SCH (11:51)
[2022-02-22] MEDS: VITAMIN B COMP W-C 1 EA TABLET (NEPHRO-VITE) PO SCH (11:51)
[2022-02-22] MEDS: amLODIPine BESYLATE 2.5 MG TABLET (FP) PO SCH (11:51)
[2022-02-22] MEDS: ASPIRIN COATED 81 MG TABLET.EC PO SCH (11:51)
[2022-02-22] MEDS: CLOPIDOGREL BISULFATE 75 MG TABLET (FP) PO SCH (11:52)
[2022-02-22] MEDS: HEPARIN NA (PORCINE) 5,000 UNITS/ML 1ML VIAL SQ SCH ×2 (11:52→21:02)
[2022-02-22] MEDS: ATORVASTATIN CA 80 MG TABLET (FP) PO SCH (21:02)
[2022-02-23] MEDS: CARBIDOPA/LEVODOPA 25/100 TABLET (FP) PO SCH ×3 (06:36→21:53)
[2022-02-23] MEDS: hydrALAZINE HCL 10 MG TABLET PO SCH ×3 (06:36→21:53)
[2022-02-23] MEDS: LEVOTHYROXINE NA 100 MCG TABLET (FP) PO SCH (06:36)
[2022-02-23] MEDS: DOCUSATE SODIUM 100 MG CAPSULE (FP) PO SCH ×3 (06:36→21:53)
[2022-02-23] MEDS: INSULIN (LEVEMIR) 100 UNITS/ML UNITS SQ SCH (06:42)
[2022-02-23] MEDS: INSULIN SLIDING SCALE (NOVOLOG) 1 VIAL SQ SCH ×4 (06:42→21:53)
[2022-02-23] MEDS: SEVELAMER CARBONATE 800 MG TAB (FP) PO SCH ×3 (08:03→18:16)
[2022-02-23 10:15] LABS: BASO % 0.5 % (0-2.0); EOS % 0.5 % (0-4.5); HEMATOCRIT 37.8 % (32.4-45.2); HEMOGLOBIN 12.1 GM/dL (10.7-15.3); LYMPH % 22.9 % (8-40); MCH 31.2 pg (25.7-33.7); MEAN CELL VOLUME 97.5 fl (80-96); MEAN PLT VOLUME 9.7 fl (7.5-11.1); MONO % 9.8 % (3.8-10.2); NEUT % 66.3 % (42.8-82.8); PLATELET COUNT 145 10^3/uL (134-434); RBC 3.88 M/mm3 (3.60-5.2); RDW 15.4 % (11.6-15.6); WHITE BLOOD COUNT 3.7 K/mm3 (4.0-10.0)
[2022-02-23 10:37] LABS: BLOOD UREA NITROGEN 24.2 mg/dL (7-18)
[2022-02-23 10:38] LABS: CALCIUM 9.1 mg/dL (8.5-10.1)
[2022-02-23 10:39] LABS: MAGNESIUM 2.2 mg/dL (1.8-2.4)
[2022-02-23 10:41] LABS: CREATININE 2.6 mg/dL (0.55-1.3)
[2022-02-23 10:42] LABS: BILIRUBIN,TOTAL 0.5 mg/dL (0.2-1); TOT PROT 6.4 g/dl (6.4-8.2)
[2022-02-23] MEDS: CLOPIDOGREL BISULFATE 75 MG TABLET (FP) PO SCH (15:07)
[2022-02-23] MEDS: ESCITALOPRAM OXALATE 10 MG TABLET PO SCH (15:07)
[2022-02-23] MEDS: ASPIRIN COATED 81 MG TABLET.EC PO SCH (15:08)
[2022-02-23] MEDS: VITAMIN B COMP W-C 1 EA TABLET (NEPHRO-VITE) PO SCH (15:11)
[2022-02-23] MEDS: amLODIPine BESYLATE 2.5 MG TABLET (FP) PO SCH (15:11)
[2022-02-23] MEDS: HEPARIN NA (PORCINE) 5,000 UNITS/ML 1ML VIAL SQ SCH ×2 (15:11→21:53)
[2022-02-23] MEDS: ATORVASTATIN CA 80 MG TABLET (FP) PO SCH (21:53)
[2022-02-24] MEDS: hydrALAZINE HCL 10 MG TABLET PO SCH ×3 (06:15→21:01)
[2022-02-24] MEDS: DOCUSATE SODIUM 100 MG CAPSULE (FP) PO SCH ×3 (06:15→21:00)
[2022-02-24] MEDS: LEVOTHYROXINE NA 100 MCG TABLET (FP) PO SCH (06:15)
[2022-02-24] MEDS: CARBIDOPA/LEVODOPA 25/100 TABLET (FP) PO SCH ×3 (06:15→21:01)
[2022-02-24] MEDS: INSULIN SLIDING SCALE (NOVOLOG) 1 VIAL SQ SCH ×4 (06:20→21:01)
[2022-02-24] MEDS: INSULIN (LEVEMIR) 100 UNITS/ML UNITS SQ SCH (06:20)
[2022-02-24 09:55] LABS: BASO % 0.5 % (0-2.0); EOS % 0.3 % (0-4.5); HEMATOCRIT 34.7 % (32.4-45.2); HEMOGLOBIN 11.1 GM/dL (10.7-15.3); MCH 31.4 pg (25.7-33.7); MCHC 31.9 g/dl (32.0-36.0); MEAN CELL VOLUME 98.3 fl (80-96); MEAN PLT VOLUME 9.2 fl (7.5-11.1); NEUT % 64.2 % (42.8-82.8); PLATELET COUNT 141 10^3/uL (134-434); RBC 3.53 M/mm3 (3.60-5.2); RDW 15.4 % (11.6-15.6); WHITE BLOOD COUNT 4.2 K/mm3 (4.0-10.0)
[2022-02-24 10:20] LABS: BLOOD UREA NITROGEN 17.7 mg/dL (7-18); CALCIUM 8.9 mg/dL (8.5-10.1)
[2022-02-24 10:21] LABS: ALBUMIN 2.8 g/dl (3.4-5.0); MAGNESIUM 2.2 mg/dL (1.8-2.4)
[2022-02-24 10:25] LABS: TOT PROT 5.9 g/dl (6.4-8.2)
[2022-02-24 10:28] LABS: BILIRUBIN,TOTAL 0.7 mg/dL (0.2-1)
[2022-02-24] MEDS: HEPARIN NA (PORCINE) 5,000 UNITS/ML 1ML VIAL SQ SCH ×2 (10:49→21:05)
[2022-02-24] MEDS: CLOPIDOGREL BISULFATE 75 MG TABLET (FP) PO SCH (10:49)
[2022-02-24] MEDS: amLODIPine BESYLATE 2.5 MG TABLET (FP) PO SCH (10:49)
[2022-02-24] MEDS: ASPIRIN COATED 81 MG TABLET.EC PO SCH (10:49)
[2022-02-24] MEDS: ESCITALOPRAM OXALATE 10 MG TABLET PO SCH (10:49)
[2022-02-24] MEDS: SEVELAMER CARBONATE 800 MG TAB (FP) PO SCH ×3 (10:50→18:35)
[2022-02-24] MEDS: VITAMIN B COMP W-C 1 EA TABLET (NEPHRO-VITE) PO SCH (10:50)
[2022-02-24] MEDS: ATORVASTATIN CA 80 MG TABLET (FP) PO SCH (21:00)
[2022-02-24] MEDS ORDERED: SODIUM CHLORIDE 250 ML IV PRN (21:56)
[2022-02-25] MEDS: LEVOTHYROXINE NA 100 MCG TABLET (FP) PO SCH (06:18)
[2022-02-25] MEDS: hydrALAZINE HCL 10 MG TABLET PO SCH ×3 (06:18→21:48)
[2022-02-25] MEDS: DOCUSATE SODIUM 100 MG CAPSULE (FP) PO SCH ×3 (06:19→21:48)
[2022-02-25] MEDS: INSULIN (LEVEMIR) 100 UNITS/ML UNITS SQ SCH (06:26)
[2022-02-25] MEDS: INSULIN SLIDING SCALE (NOVOLOG) 1 VIAL SQ SCH ×4 (06:26→21:57)
[2022-02-25] MEDS: CARBIDOPA/LEVODOPA 25/100 TABLET (FP) PO SCH ×3 (06:26→21:48)
[2022-02-25] MEDS: ESCITALOPRAM OXALATE 10 MG TABLET PO SCH (09:27)
[2022-02-25] MEDS: amLODIPine BESYLATE 2.5 MG TABLET (FP) PO SCH (09:27)
[2022-02-25] MEDS: ASPIRIN COATED 81 MG TABLET.EC PO SCH (09:28)
[2022-02-25] MEDS: HEPARIN NA (PORCINE) 5,000 UNITS/ML 1ML VIAL SQ SCH ×2 (09:28→21:48)
[2022-02-25] MEDS: SEVELAMER CARBONATE 800 MG TAB (FP) PO SCH ×3 (09:28→19:22)
[2022-02-25] MEDS: CLOPIDOGREL BISULFATE 75 MG TABLET (FP) PO SCH (09:28)
[2022-02-25] MEDS: VITAMIN B COMP W-C 1 EA TABLET (NEPHRO-VITE) PO SCH (09:28)
[2022-02-25] MEDS: ATORVASTATIN CA 80 MG TABLET (FP) PO SCH (21:48)
[2022-02-26] MEDS ORDERED: SENNOSIDES 8.6MG TABLET (FP) PO PRN (02:49)
[2022-02-26] MEDS: LEVOTHYROXINE NA 100 MCG TABLET (FP) PO SCH (06:04)
[2022-02-26] MEDS: hydrALAZINE HCL 10 MG TABLET PO SCH ×3 (06:13→22:12)
[2022-02-26] MEDS: DOCUSATE SODIUM 100 MG CAPSULE (FP) PO SCH ×3 (06:14→22:12)
[2022-02-26] MEDS: CARBIDOPA/LEVODOPA 25/100 TABLET (FP) PO SCH ×3 (06:14→22:12)
[2022-02-26] MEDS: INSULIN (LEVEMIR) 100 UNITS/ML UNITS SQ SCH (06:15)
[2022-02-26] MEDS: INSULIN SLIDING SCALE (NOVOLOG) 1 VIAL SQ SCH ×4 (07:24→22:11)
[2022-02-26] MEDS: SEVELAMER CARBONATE 800 MG TAB (FP) PO SCH ×3 (08:19→18:42)
[2022-02-26 09:52] LABS: BASO % 0.5 % (0-2.0); EOS % 0.3 % (0-4.5); HEMATOCRIT 34.8 % (32.4-45.2); HEMOGLOBIN 10.7 GM/dL (10.7-15.3); LYMPH % 18.4 % (8-40); MCH 30.4 pg (25.7-33.7); MCHC 30.9 g/dl (32.0-36.0); MEAN CELL VOLUME 98.4 fl (80-96); MEAN PLT VOLUME 9.4 fl (7.5-11.1); MONO % 8.1 % (3.8-10.2); NEUT % 72.7 % (42.8-82.8); PLATELET COUNT 140 10^3/uL (134-434); RBC 3.53 M/mm3 (3.60-5.2); RDW 15.7 % (11.6-15.6); WHITE BLOOD COUNT 3.4 K/mm3 (4.0-10.0)
[2022-02-26] MEDS ORDERED: ASPIRIN COATED 81 MG TABLET.EC PO SCH (10:00)
[2022-02-26] MEDS ORDERED: CLOPIDOGREL BISULFATE 75 MG TABLET (FP) PO SCH (10:00)
[2022-02-26] MEDS: ESCITALOPRAM OXALATE 10 MG TABLET PO SCH (10:04)
[2022-02-26] MEDS: VITAMIN B COMP W-C 1 EA TABLET (NEPHRO-VITE) PO SCH (10:05)
[2022-02-26] MEDS: amLODIPine BESYLATE 2.5 MG TABLET (FP) PO SCH (10:05)
[2022-02-26] MEDS: HEPARIN NA (PORCINE) 5,000 UNITS/ML 1ML VIAL SQ SCH (10:05)
[2022-02-26 10:33] LABS: ALBUMIN 2.9 g/dl (3.4-5.0); BILIRUBIN,TOTAL 0.5 mg/dL (0.2-1); BLOOD UREA NITROGEN 34.2 mg/dL (7-18); CALCIUM 9.3 mg/dL (8.5-10.1); CREATININE 2.7 mg/dL (0.55-1.3); MAGNESIUM 2.3 mg/dL (1.8-2.4); TOT PROT 6.1 g/dl (6.4-8.2)
[2022-02-26] MEDS ORDERED: ATORVASTATIN CA 80 MG TABLET (FP) PO SCH (22:00)
[2022-02-27 05:56] LABS: BASO % 0.5 % (0-2.0); EOS % 0.4 % (0-4.5); HEMATOCRIT 27.7 % (32.4-45.2); HEMOGLOBIN 8.9 GM/dL (10.7-15.3); LYMPH % 20.7 % (8-40); MCH 31.3 pg (25.7-33.7); MCHC 32.2 g/dl (32.0-36.0); MEAN CELL VOLUME 97.5 fl (80-96); MEAN PLT VOLUME 9.4 fl (7.5-11.1); MONO % 8.4 % (3.8-10.2); PLATELET COUNT 147 10^3/uL (134-434); RBC 2.84 M/mm3 (3.60-5.2); RDW 15.6 % (11.6-15.6); WHITE BLOOD COUNT 5.5 K/mm3 (4.0-10.0)
[2022-02-27] MEDS: LEVOTHYROXINE NA 100 MCG TABLET (FP) PO SCH (06:05)
[2022-02-27] MEDS: INSULIN (LEVEMIR) 100 UNITS/ML UNITS SQ SCH (06:05)
[2022-02-27] MEDS: DOCUSATE SODIUM 100 MG CAPSULE (FP) PO SCH (06:06)
[2022-02-27] MEDS: CARBIDOPA/LEVODOPA 25/100 TABLET (FP) PO SCH ×3 (06:06→21:55)
[2022-02-27] MEDS: hydrALAZINE HCL 10 MG TABLET PO SCH ×3 (06:06→21:54)
[2022-02-27] MEDS: INSULIN SLIDING SCALE (NOVOLOG) 1 VIAL SQ SCH ×4 (06:07→21:55)
[2022-02-27 06:29] LABS: CALCIUM 8.7 mg/dL (8.5-10.1)
[2022-02-27 06:30] LABS: ALBUMIN 2.8 g/dl (3.4-5.0); BLOOD UREA NITROGEN 24.6 mg/dL (7-18)
[2022-02-27 06:34] LABS: BILIRUBIN,TOTAL 0.4 mg/dL (0.2-1); TOT PROT 5.8 g/dl (6.4-8.2)
[2022-02-27] MEDS: SEVELAMER CARBONATE 800 MG TAB (FP) PO SCH ×3 (08:29→17:42)
[2022-02-27] MEDS: VITAMIN B COMP W-C 1 EA TABLET (NEPHRO-VITE) PO SCH (09:04)
[2022-02-27] MEDS: ESCITALOPRAM OXALATE 10 MG TABLET PO SCH (09:04)
[2022-02-27] MEDS: amLODIPine BESYLATE 2.5 MG TABLET (FP) PO SCH (09:04)
[2022-02-27] MEDS ORDERED: PANTOPRAZOLE SODIUM 40 MG VIAL IVPUSH SCH (10:00)
[2022-02-27 15:05] LABS: HEMATOCRIT 25.6 % (32.4-45.2); HEMOGLOBIN 8.1 GM/dL (10.7-15.3); MCH 31.2 pg (25.7-33.7); MCHC 31.7 g/dl (32.0-36.0); MEAN CELL VOLUME 98.4 fl (80-96); MEAN PLT VOLUME 9.2 fl (7.5-11.1); PLATELET COUNT 144 10^3/uL (134-434); RDW 15.2 % (11.6-15.6); WHITE BLOOD COUNT 5.6 K/mm3 (4.0-10.0)
[2022-02-27 17:25] LABS: BASO % 0.3 % (0-2.0); EOS % 0.3 % (0-4.5); LYMPH % 21.2 % (8-40); MONO % 8.2 % (3.8-10.2)
[2022-02-27] MEDS ORDERED: SODIUM CHLORIDE 250 ML IV PRN (20:08)
[2022-02-27] MEDS: ATORVASTATIN CA 80 MG TABLET (FP) PO SCH (21:54)
[2022-02-27] MEDS: PANTOPRAZOLE SODIUM 40 MG VIAL IVPUSH SCH (23:56)
[2022-02-28 02:21] LABS: BASO % 0.4 % (0-2.0); EOS % 0.7 % (0-4.5); HEMATOCRIT 25.7 % (32.4-45.2); HEMOGLOBIN 8.2 GM/dL (10.7-15.3); MCH 30.8 pg (25.7-33.7); MEAN CELL VOLUME 96.1 fl (80-96); MEAN PLT VOLUME 9.2 fl (7.5-11.1); MONO % 8.5 % (3.8-10.2); NEUT % 66.4 % (42.8-82.8); PLATELET COUNT 122 10^3/uL (134-434); RBC 2.67 M/mm3 (3.60-5.2); RDW 15.2 % (11.6-15.6); WHITE BLOOD COUNT 4.7 K/mm3 (4.0-10.0)
[2022-02-28 02:23] LABS: INR 1.86 (0.83-1.09); PROTHROMBIN TIME (PATIENT) 21.5 SEC (9.7-13.0)
[2022-02-28 02:25] LABS: ACTIVATED PTT 31.6 SECONDS (25.2-36.5)
[2022-02-28 02:41] LABS: CALCIUM 8.4 mg/dL (8.5-10.1)
[2022-02-28 02:42] LABS: ALBUMIN 2.5 g/dl (3.4-5.0); BLOOD UREA NITROGEN 29.9 mg/dL (7-18)
[2022-02-28 02:45] LABS: CREATININE 2.1 mg/dL (0.55-1.3)
[2022-02-28 02:46] LABS: TOT PROT 4.9 g/dl (6.4-8.2)
[2022-02-28 02:47] LABS: BILIRUBIN,TOTAL 0.8 mg/dL (0.2-1)
[2022-02-28] MEDS ORDERED: PHYTONADIONE 10 MG/1 ML AMP SQ ONE (05:46)
[2022-02-28] MEDS: CARBIDOPA/LEVODOPA 25/100 TABLET (FP) PO SCH ×3 (06:13→21:22)
[2022-02-28] MEDS: hydrALAZINE HCL 10 MG TABLET PO SCH ×3 (06:14→21:26)
[2022-02-28] MEDS ORDERED: DESMOPRESSIN ACETATE 4 MCG/ML AMP IVPB ONE (06:24)
[2022-02-28] MEDS: INSULIN (LEVEMIR) 100 UNITS/ML UNITS SQ SCH (06:40)
[2022-02-28] MEDS: INSULIN SLIDING SCALE (NOVOLOG) 1 VIAL SQ SCH ×4 (06:41→21:33)
[2022-02-28] MEDS ORDERED: LEVOTHYROXINE NA 100 MCG TABLET (FP) PO SCH (07:00)
[2022-02-28] MEDS ORDERED: DESMOPRESSIN ACETATE 20 MCG in SODIUM CHLORIDE 50 ML IVPB ONE (07:30)
[2022-02-28] MEDS: SEVELAMER CARBONATE 800 MG TAB (FP) PO SCH ×3 (08:00→17:21)
[2022-02-28] MEDS: PANTOPRAZOLE SODIUM 40 MG VIAL IVPUSH SCH ×2 (10:06→21:23)
[2022-02-28] MEDS: ESCITALOPRAM OXALATE 10 MG TABLET PO SCH (10:07)
[2022-02-28] MEDS: VITAMIN B COMP W-C 1 EA TABLET (NEPHRO-VITE) PO SCH (10:08)
[2022-02-28] MEDS: amLODIPine BESYLATE 2.5 MG TABLET (FP) PO SCH (10:08)
[2022-02-28 10:30] LABS: BASO % 0.3 % (0-2.0); EOS % 0.4 % (0-4.5); HEMATOCRIT 27.2 % (32.4-45.2); LYMPH % 18.6 % (8-40); MCH 30.9 pg (25.7-33.7); MCHC 33.1 g/dl (32.0-36.0); MEAN CELL VOLUME 93.5 fl (80-96); MEAN PLT VOLUME 9.1 fl (7.5-11.1); MONO % 6.7 % (3.8-10.2); PLATELET COUNT 118 10^3/uL (134-434); RBC 2.91 M/mm3 (3.60-5.2); RDW 15.4 % (11.6-15.6); WHITE BLOOD COUNT 5.4 K/mm3 (4.0-10.0)
[2022-02-28 10:57] LABS: ALBUMIN 2.3 g/dl (3.4-5.0); CALCIUM 8.6 mg/dL (8.5-10.1); MAGNESIUM 1.9 mg/dL (1.8-2.4)
[2022-02-28 10:59] LABS: IRON SERUM 136 ug/dL (50-175); TOTAL IRON BINDING CAPACITY 176 ug/dL (250-450)
[2022-02-28 11:00] LABS: CREATININE 2.3 mg/dL (0.55-1.3)
[2022-02-28 11:02] LABS: BILIRUBIN,TOTAL 0.8 mg/dL (0.2-1); TOT PROT 4.6 g/dl (6.4-8.2)
[2022-02-28] MEDS ORDERED: DEXTROSE 50%-WATER 25 GM/50 ML DISP.SYRIN IVPUSH PRN (11:52)
[2022-02-28] MEDS ORDERED: CEFTRIAXONE 1 GM in DEXTROSE 5%-WATER - 50 ML IVPB ONE (13:15)
[2022-02-28] MEDS ORDERED: BISACODYL 5 MG TABLET.DR (FP) PO ONE (13:36)
[2022-02-28 16:47] LABS: BASO % 0.4 % (0-2.0); EOS % 0.6 % (0-4.5); HEMATOCRIT 23.4 % (32.4-45.2); HEMOGLOBIN 7.6 GM/dL (10.7-15.3); LYMPH % 17.9 % (8-40); MCH 30.5 pg (25.7-33.7); MCHC 32.7 g/dl (32.0-36.0); MEAN CELL VOLUME 93.3 fl (80-96); MEAN PLT VOLUME 8.6 fl (7.5-11.1); NEUT % 74.1 % (42.8-82.8); PLATELET COUNT 106 10^3/uL (134-434); RDW 15.8 % (11.6-15.6); WHITE BLOOD COUNT 5.2 K/mm3 (4.0-10.0)
[2022-02-28 16:48] LABS: BASO % 0.4 % (0-2.0); EOS % 0.3 % (0-4.5); HEMATOCRIT 23.3 % (32.4-45.2); HEMOGLOBIN 7.6 GM/dL (10.7-15.3); LYMPH % 17.4 % (8-40); MCH 30.3 pg (25.7-33.7); MCHC 32.4 g/dl (32.0-36.0); MEAN CELL VOLUME 93.4 fl (80-96); MEAN PLT VOLUME 8.7 fl (7.5-11.1); MONO % 7.1 % (3.8-10.2); NEUT % 74.8 % (42.8-82.8); PLATELET COUNT 106 10^3/uL (134-434); RDW 15.8 % (11.6-15.6); WHITE BLOOD COUNT 5.3 K/mm3 (4.0-10.0)
[2022-02-28 16:55] LABS: INR 2.02 (0.83-1.09); PROTHROMBIN TIME (PATIENT) 23.4 SEC (9.7-13.0)
[2022-02-28] MEDS ORDERED: PEG 3350/NA SULF BICARB CL/KCL 4000 ML SOLN.RECON PO ONE (17:00)
[2022-02-28] MEDS: ATORVASTATIN CA 80 MG TABLET (FP) PO SCH (21:22)
[2022-03-01 01:13] LABS: WHITE BLOOD COUNT 5.6 K/mm3 (4.0-10.0)
[2022-03-01 01:21] LABS: INR 1.55 (0.83-1.09); PROTHROMBIN TIME (PATIENT) 17.9 SEC (9.7-13.0)
[2022-03-01 01:35] LABS: BASO % 0.5 % (0-2.0); EOS % 0.4 % (0-4.5); HEMATOCRIT 30.7 % (32.4-45.2); HEMOGLOBIN 10.2 GM/dL (10.7-15.3); LYMPH % 11.7 % (8-40); MCH 29.9 pg (25.7-33.7); MCHC 33.4 g/dl (32.0-36.0); MEAN CELL VOLUME 89.6 fl (80-96); MEAN PLT VOLUME 8.8 fl (7.5-11.1); NEUT % 79.4 % (42.8-82.8); PLATELET COUNT 142 10^3/uL (134-434); RBC 3.43 M/mm3 (3.60-5.2); RDW 15.6 % (11.6-15.6)
[2022-03-01] MEDS: hydrALAZINE HCL 10 MG TABLET PO SCH ×3 (05:54→21:11)
[2022-03-01] MEDS: CARBIDOPA/LEVODOPA 25/100 TABLET (FP) PO SCH ×3 (05:54→21:12)
[2022-03-01] MEDS: INSULIN (LEVEMIR) 100 UNITS/ML UNITS SQ SCH (06:00)
[2022-03-01] MEDS: INSULIN SLIDING SCALE (NOVOLOG) 1 VIAL SQ SCH ×4 (06:00→21:01)
[2022-03-01 07:45] LABS: BASO % 0.5 % (0-2.0); EOS % 0.4 % (0-4.5); HEMATOCRIT 28.9 % (32.4-45.2); HEMOGLOBIN 9.8 GM/dL (10.7-15.3); LYMPH % 15.4 % (8-40); MCH 30.4 pg (25.7-33.7); MEAN CELL VOLUME 89.5 fl (80-96); MEAN PLT VOLUME 9.2 fl (7.5-11.1); MONO % 7.9 % (3.8-10.2); NEUT % 75.8 % (42.8-82.8); PLATELET COUNT 150 10^3/uL (134-434); RBC 3.23 M/mm3 (3.60-5.2); RDW 15.8 % (11.6-15.6); WHITE BLOOD COUNT 4.4 K/mm3 (4.0-10.0)
[2022-03-01 07:51] LABS: INR 1.62 (0.83-1.09); PROTHROMBIN TIME (PATIENT) 18.7 SEC (9.7-13.0)
[2022-03-01] MEDS ORDERED: POTASSIUM CHLORIDE ORAL LIQUID 20 MEQ/15 ML PO ONE (08:16)
[2022-03-01 08:22] LABS: CALCIUM 8.8 mg/dL (8.5-10.1)
[2022-03-01 08:24] LABS: ALBUMIN 2.6 g/dl (3.4-5.0); BLOOD UREA NITROGEN 17.3 mg/dL (7-18)
[2022-03-01 08:27] LABS: CREATININE 1.6 mg/dL (0.55-1.3)
[2022-03-01 08:28] LABS: BILIRUBIN,TOTAL 1.1 mg/dL (0.2-1); TOT PROT 4.9 g/dl (6.4-8.2)
[2022-03-01] MEDS: amLODIPine BESYLATE 2.5 MG TABLET (FP) PO SCH (09:20)
[2022-03-01] MEDS: VITAMIN B COMP W-C 1 EA TABLET (NEPHRO-VITE) PO SCH (09:20)
[2022-03-01] MEDS: ESCITALOPRAM OXALATE 10 MG TABLET PO SCH (09:20)
[2022-03-01] MEDS: PANTOPRAZOLE SODIUM 40 MG VIAL IVPUSH SCH ×2 (09:21→21:11)
[2022-03-01] MEDS: LEVOTHYROXINE SODIUM 100 MCG 5 ML VIAL IVPUSH SCH (09:23)
[2022-03-01] MEDS: ACETAMINOPHEN 1000 MG/100 ML BAG IVPB PRN (11:29)
[2022-03-01] MEDS ORDERED: ETOMIDATE 20 MG/10 ML VIAL IVPUSH ONE (11:37)
[2022-03-01] MEDS: SEVELAMER CARBONATE 800 MG TAB (FP) PO SCH ×3 (15:14→17:54)
[2022-03-01 17:16] LABS: BASO % 0.3 % (0-2.0); EOS % 0.1 % (0-4.5); HEMATOCRIT 29.1 % (32.4-45.2); HEMOGLOBIN 9.9 GM/dL (10.7-15.3); MCH 30.5 pg (25.7-33.7); MCHC 33.9 g/dl (32.0-36.0); MEAN PLT VOLUME 9.1 fl (7.5-11.1); MONO % 5.5 % (3.8-10.2); NEUT % 81.1 % (42.8-82.8); PLATELET COUNT 159 10^3/uL (134-434); RBC 3.24 M/mm3 (3.60-5.2); RDW 16.1 % (11.6-15.6); WHITE BLOOD COUNT 7.4 K/mm3 (4.0-10.0)
[2022-03-01] MEDS: ATORVASTATIN CA 80 MG TABLET (FP) PO SCH (21:10)
[2022-03-02] MEDS: CARBIDOPA/LEVODOPA 25/100 TABLET (FP) PO SCH ×3 (06:27→22:32)
[2022-03-02] MEDS: hydrALAZINE HCL 10 MG TABLET PO SCH ×3 (06:27→22:25)
[2022-03-02] MEDS: INSULIN (LEVEMIR) 100 UNITS/ML UNITS SQ SCH (06:27)
[2022-03-02] MEDS: INSULIN SLIDING SCALE (NOVOLOG) 1 VIAL SQ SCH ×4 (06:28→22:31)
[2022-03-02 07:17] LABS: BASO % 0.5 % (0-2.0); EOS % 0.4 % (0-4.5); HEMATOCRIT 26.1 % (32.4-45.2); HEMOGLOBIN 8.7 GM/dL (10.7-15.3); MCH 29.9 pg (25.7-33.7); MCHC 33.1 g/dl (32.0-36.0); MEAN CELL VOLUME 90.3 fl (80-96); MEAN PLT VOLUME 7.9 fl (7.5-11.1); MONO % 7.6 % (3.8-10.2); NEUT % 70.5 % (42.8-82.8); PLATELET COUNT 153 10^3/uL (134-434); RBC 2.89 M/mm3 (3.60-5.2); RDW 15.8 % (11.6-15.6); WHITE BLOOD COUNT 4.4 K/mm3 (4.0-10.0)
[2022-03-02 07:24] LABS: INR 1.81 (0.83-1.09); PROTHROMBIN TIME (PATIENT) 20.9 SEC (9.7-13.0)
[2022-03-02 07:34] LABS: CALCIUM 9.1 mg/dL (8.5-10.1)
[2022-03-02 07:35] LABS: ALBUMIN 2.6 g/dl (3.4-5.0); BLOOD UREA NITROGEN 20.8 mg/dL (7-18)
[2022-03-02 07:39] LABS: CREATININE 2.2 mg/dL (0.55-1.3)
[2022-03-02 07:40] LABS: BILIRUBIN,TOTAL 0.5 mg/dL (0.2-1)
[2022-03-02] MEDS: SEVELAMER CARBONATE 800 MG TAB (FP) PO SCH ×3 (10:05→16:36)
[2022-03-02] MEDS: PANTOPRAZOLE SODIUM 40 MG VIAL IVPUSH SCH (10:06)
[2022-03-02] MEDS: amLODIPine BESYLATE 2.5 MG TABLET (FP) PO SCH (10:06)
[2022-03-02] MEDS: ESCITALOPRAM OXALATE 10 MG TABLET PO SCH (10:06)
[2022-03-02] MEDS: LEVOTHYROXINE SODIUM 100 MCG 5 ML VIAL IVPUSH SCH (10:06)
[2022-03-02] MEDS: VITAMIN B COMP W-C 1 EA TABLET (NEPHRO-VITE) PO SCH (10:06)
[2022-03-02] MEDS ORDERED: EPOETIN ALFA-EPBX 10,000 UNIT/ML VIAL SQ ONE (18:44)
[2022-03-02] MEDS ORDERED: SODIUM CHLORIDE 250 ML IV PRN (18:44)
[2022-03-02] MEDS: ATORVASTATIN CA 80 MG TABLET (FP) PO SCH (22:25)
[2022-03-02 23:18] LABS: BASO % 0.6 % (0-2.0); EOS % 0.1 % (0-4.5); HEMATOCRIT 19.1 % (32.4-45.2); LYMPH % 17.3 % (8-40); MCH 30.2 pg (25.7-33.7); MCHC 32.7 g/dl (32.0-36.0); MEAN CELL VOLUME 92.6 fl (80-96); MEAN PLT VOLUME 9.7 fl (7.5-11.1); MONO % 6.1 % (3.8-10.2); NEUT % 75.9 % (42.8-82.8); PLATELET COUNT 146 10^3/uL (134-434); RBC 2.07 M/mm3 (3.60-5.2); WHITE BLOOD COUNT 5.1 K/mm3 (4.0-10.0)
[2022-03-02 23:27] LABS: HEMOGLOBIN 6.2 GM/dL (10.7-15.3)
[2022-03-03] MEDS: hydrALAZINE HCL 10 MG TABLET PO SCH (06:27)
[2022-03-03] MEDS: CARBIDOPA/LEVODOPA 25/100 TABLET (FP) PO SCH ×3 (06:28→21:01)
[2022-03-03] MEDS: INSULIN SLIDING SCALE (NOVOLOG) 1 VIAL SQ SCH ×4 (06:32→21:00)
[2022-03-03 08:14] LABS: BASO % 0.6 % (0-2.0); EOS % 0.2 % (0-4.5); HEMATOCRIT 19.6 % (32.4-45.2); LYMPH % 16.7 % (8-40); MCH 30.8 pg (25.7-33.7); MCHC 33.4 g/dl (32.0-36.0); MEAN CELL VOLUME 92.3 fl (80-96); MEAN PLT VOLUME 8.5 fl (7.5-11.1); MONO % 5.5 % (3.8-10.2); PLATELET COUNT 149 10^3/uL (134-434); RBC 2.12 M/mm3 (3.60-5.2); RDW 16.3 % (11.6-15.6)
[2022-03-03 08:17] LABS: INR 1.8 (0.83-1.09); PROTHROMBIN TIME (PATIENT) 20.8 SEC (9.7-13.0)
[2022-03-03 08:22] LABS: HEMOGLOBIN 6.5 GM/dL (10.7-15.3)
[2022-03-03 08:35] LABS: CHLORIDE 107 mmol/L (98-107); SODIUM 143 mmol/L (136-145)
[2022-03-03 08:46] LABS: ALBUMIN 2.4 g/dl (3.4-5.0); ANION GAP 11 MMOL/L (8-16); BLOOD UREA NITROGEN 23.9 mg/dL (7-18); CALCIUM 9.1 mg/dL (8.5-10.1); CO2 25 mmol/L (21-32); GLUCOSE,RANDOM 145 mg/dL (74-106)
[2022-03-03 08:49] LABS: CREATININE 2.5 mg/dL (0.55-1.3); SGOT/AST 20 U/L (15-37)
[2022-03-03 08:51] LABS: BILIRUBIN,TOTAL 0.6 mg/dL (0.2-1); TOT PROT 4.6 g/dl (6.4-8.2)
[2022-03-03 08:52] LABS: ALK PHOS 73 U/L (45-117)
[2022-03-03 09:06] LABS: SGPT/ALT < 6 U/L (13-61)
[2022-03-03] MEDS: SEVELAMER CARBONATE 800 MG TAB (FP) PO SCH ×3 (10:29→17:14)
[2022-03-03] MEDS: ESCITALOPRAM OXALATE 10 MG TABLET PO SCH (10:30)
[2022-03-03] MEDS: VITAMIN B COMP W-C 1 EA TABLET (NEPHRO-VITE) PO SCH (10:30)
[2022-03-03] MEDS: LEVOTHYROXINE SODIUM 100 MCG 5 ML VIAL IVPUSH SCH (10:30)
[2022-03-03] MEDS: PANTOPRAZOLE SODIUM 40 MG VIAL IVPUSH SCH (10:31)
[2022-03-03] MEDS ORDERED: EPOETIN ALFA-EPBX 10,000 UNIT/ML VIAL IVPUSH ONE (12:45)
[2022-03-03] MEDS: ALBUMIN HUMAN 25% 12.5 GM/50 ML VIAL IV SCH ×4 (14:30→16:00)
[2022-03-03] MEDS ORDERED: ALBUMIN HUMAN 25% 12.5 GM/50 ML VIAL IV ONE (14:34)
[2022-03-03 15:03] LABS: BASO % 0.4 % (0-2.0); EOS % 0.1 % (0-4.5); HEMATOCRIT 26.4 % (32.4-45.2); HEMOGLOBIN 8.7 GM/dL (10.7-15.3); LYMPH % 12.5 % (8-40); MCH 29.4 pg (25.7-33.7); MEAN CELL VOLUME 89.1 fl (80-96); MEAN PLT VOLUME 8.6 fl (7.5-11.1); MONO % 5.7 % (3.8-10.2); NEUT % 81.3 % (42.8-82.8); PLATELET COUNT 122 10^3/uL (134-434); RBC 2.96 M/mm3 (3.60-5.2); RDW 15.4 % (11.6-15.6); WHITE BLOOD COUNT 5.9 K/mm3 (4.0-10.0)
[2022-03-03 20:45] LABS: BASO % 0.5 % (0-2.0); EOS % 0.1 % (0-4.5); HEMATOCRIT 30.2 % (32.4-45.2); HEMOGLOBIN 9.9 GM/dL (10.7-15.3); LYMPH % 14.4 % (8-40); MCH 28.9 pg (25.7-33.7); MCHC 32.9 g/dl (32.0-36.0); MEAN CELL VOLUME 87.8 fl (80-96); MEAN PLT VOLUME 8.2 fl (7.5-11.1); MONO % 10.1 % (3.8-10.2); NEUT % 74.9 % (42.8-82.8); PLATELET COUNT 118 10^3/uL (134-434); RBC 3.43 M/mm3 (3.60-5.2); RDW 15.9 % (11.6-15.6); WHITE BLOOD COUNT 5.3 K/mm3 (4.0-10.0)
[2022-03-03] MEDS: ATORVASTATIN CA 80 MG TABLET (FP) PO SCH (21:01)
[2022-03-04] MEDS: CARBIDOPA/LEVODOPA 25/100 TABLET (FP) PO SCH ×3 (05:44→22:12)
[2022-03-04] MEDS: INSULIN SLIDING SCALE (NOVOLOG) 1 VIAL SQ SCH ×4 (06:18→22:17)
[2022-03-04] MEDS: INSULIN (LEVEMIR) 100 UNITS/ML UNITS SQ SCH (06:18)
[2022-03-04] MEDS: SEVELAMER CARBONATE 800 MG TAB (FP) PO SCH ×3 (08:19→17:22)
[2022-03-04] MEDS: LEVOTHYROXINE SODIUM 100 MCG 5 ML VIAL IVPUSH SCH (09:55)
[2022-03-04] MEDS: PANTOPRAZOLE SODIUM 40 MG VIAL IVPUSH SCH (09:55)
[2022-03-04] MEDS: VITAMIN B COMP W-C 1 EA TABLET (NEPHRO-VITE) PO SCH (09:56)
[2022-03-04] MEDS: ESCITALOPRAM OXALATE 10 MG TABLET PO SCH (09:56)
[2022-03-04 11:16] LABS: BASO % 0.4 % (0-2.0); EOS % 0.6 % (0-4.5); HEMATOCRIT 26.3 % (32.4-45.2); HEMOGLOBIN 9.1 GM/dL (10.7-15.3); LYMPH % 20.1 % (8-40); MCH 30.1 pg (25.7-33.7); MCHC 34.5 g/dl (32.0-36.0); MEAN CELL VOLUME 87.4 fl (80-96); MEAN PLT VOLUME 8.5 fl (7.5-11.1); MONO % 9.6 % (3.8-10.2); NEUT % 69.3 % (42.8-82.8); PLATELET COUNT 120 10^3/uL (134-434)
[2022-03-04 11:18] LABS: INR 2.03 (0.83-1.09); PROTHROMBIN TIME (PATIENT) 23.5 SEC (9.7-13.0)
[2022-03-04 11:37] LABS: BLOOD UREA NITROGEN 11.5 mg/dL (7-18)
[2022-03-04 11:38] LABS: CALCIUM 8.4 mg/dL (8.5-10.1)
[2022-03-04 11:39] LABS: ALBUMIN 2.4 g/dl (3.4-5.0)
[2022-03-04 11:41] LABS: CREATININE 2.1 mg/dL (0.55-1.3)
[2022-03-04 11:44] LABS: TOT PROT 4.4 g/dl (6.4-8.2)
[2022-03-04 11:46] LABS: BILIRUBIN,TOTAL 0.6 mg/dL (0.2-1)
[2022-03-04 17:13] LABS: BASO % 0.3 % (0-2.0); EOS % 0.3 % (0-4.5); HEMATOCRIT 27.4 % (32.4-45.2); LYMPH % 34.7 % (8-40); MCHC 32.9 g/dl (32.0-36.0); MEAN CELL VOLUME 88.1 fl (80-96); MEAN PLT VOLUME 8.1 fl (7.5-11.1); MONO % 7.8 % (3.8-10.2); NEUT % 56.9 % (42.8-82.8); PLATELET COUNT 140 10^3/uL (134-434); RBC 3.11 M/mm3 (3.60-5.2); RDW 16.8 % (11.6-15.6); WHITE BLOOD COUNT 6.4 K/mm3 (4.0-10.0)
[2022-03-04] MEDS ORDERED: DEXTROSE 50%-WATER - 25 GM/50 ML VIAL IVPUSH ONE (17:29)
[2022-03-04] MEDS ORDERED: SODIUM CHLORIDE 250 ML IV PRN (21:22)
[2022-03-04] MEDS: ATORVASTATIN CA 80 MG TABLET (FP) PO SCH ×2 (22:12→22:25)
[2022-03-04] MEDS ORDERED: DEXTROSE 50%-WATER - 25 GM/50 ML VIAL IVPUSH PRN (22:28)
[2022-03-04] MEDS ORDERED: DEXTROSE 50%-WATER 25 GM/50 ML DISP.SYRIN IVPUSH PRN (23:04)
[2022-03-05] MEDS ORDERED: DEXTROSE 50%-WATER - 25 GM/50 ML VIAL IVPUSH ONE (05:50)
[2022-03-05] MEDS ORDERED: DEXTROSE 50%-WATER 25 GM/50 ML DISP.SYRIN IVPUSH ONE (05:50)
[2022-03-05] MEDS ORDERED: DEXTROSE 50%-WATER 25 GM/50 ML DISP.SYRIN ONE (06:07)
[2022-03-05] MEDS: INSULIN SLIDING SCALE (NOVOLOG) 1 VIAL SQ SCH ×4 (06:12→22:42)
[2022-03-05] MEDS: CARBIDOPA/LEVODOPA 25/100 TABLET (FP) PO SCH ×3 (06:12→22:37)
[2022-03-05] MEDS: DEXTROSE 5%-WATER - 1,000 ML IV SCH (09:25)
[2022-03-05] MEDS: SEVELAMER CARBONATE 800 MG TAB (FP) PO SCH ×3 (09:29→16:32)
[2022-03-05] MEDS: ESCITALOPRAM OXALATE 10 MG TABLET PO SCH (09:30)
[2022-03-05] MEDS: VITAMIN B COMP W-C 1 EA TABLET (NEPHRO-VITE) PO SCH (09:30)
[2022-03-05] MEDS: PANTOPRAZOLE SODIUM 40 MG VIAL IVPUSH SCH (09:30)
[2022-03-05] MEDS: LEVOTHYROXINE SODIUM 100 MCG 5 ML VIAL IVPUSH SCH (09:31)
[2022-03-05] MEDS: amLODIPine BESYLATE 2.5 MG TABLET (FP) PO SCH (09:32)
[2022-03-05 11:38] LABS: BASO % 0.7 % (0-2.0); EOS % 0.5 % (0-4.5); HEMATOCRIT 25.5 % (32.4-45.2); HEMOGLOBIN 8.5 GM/dL (10.7-15.3); LYMPH % 23.8 % (8-40); MCH 29.5 pg (25.7-33.7); MCHC 33.6 g/dl (32.0-36.0); MEAN CELL VOLUME 87.9 fl (80-96); MEAN PLT VOLUME 8.4 fl (7.5-11.1); MONO % 6.7 % (3.8-10.2); NEUT % 68.3 % (42.8-82.8); PLATELET COUNT 99 10^3/uL (134-434); RDW 16.2 % (11.6-15.6); WHITE BLOOD COUNT 4.2 K/mm3 (4.0-10.0)
[2022-03-05 11:46] LABS: INR 2.16 (0.83-1.09)
[2022-03-05 12:05] LABS: CALCIUM 8.1 mg/dL (8.5-10.1)
[2022-03-05 12:06] LABS: ALBUMIN 2.1 g/dl (3.4-5.0); BLOOD UREA NITROGEN 13.3 mg/dL (7-18)
[2022-03-05 12:09] LABS: CREATININE 2.6 mg/dL (0.55-1.3)
[2022-03-05 12:10] LABS: BILIRUBIN,TOTAL 0.6 mg/dL (0.2-1)
[2022-03-05] MEDS: ACETAMINOPHEN 1000 MG/100 ML BAG IVPB PRN (20:17)
[2022-03-05] MEDS ORDERED: ONDANSETRON 4 MG/2 ML VIAL IVPUSH ONE (20:35)
[2022-03-05 21:28] LABS: BASO % 0.5 % (0-2.0); HEMATOCRIT 19.8 % (32.4-45.2); LYMPH % 31.6 % (8-40); MCH 29.3 pg (25.7-33.7); MCHC 33.3 g/dl (32.0-36.0); MEAN CELL VOLUME 88.1 fl (80-96); MEAN PLT VOLUME 8.1 fl (7.5-11.1); MONO % 8.5 % (3.8-10.2); NEUT % 58.4 % (42.8-82.8); PLATELET COUNT 83 10^3/uL (134-434); RBC 2.25 M/mm3 (3.60-5.2); RDW 16.2 % (11.6-15.6); WHITE BLOOD COUNT 4.7 K/mm3 (4.0-10.0)
[2022-03-05 21:31] LABS: HEMOGLOBIN 6.6 GM/dL (10.7-15.3)
[2022-03-05] MEDS: ATORVASTATIN CA 80 MG TABLET (FP) PO SCH (22:37)
[2022-03-06] MEDS: INSULIN SLIDING SCALE (NOVOLOG) 1 VIAL SQ SCH ×4 (06:31→22:46)
[2022-03-06] MEDS: CARBIDOPA/LEVODOPA 25/100 TABLET (FP) PO SCH ×3 (06:31→22:46)
[2022-03-06] MEDS ORDERED: DESMOPRESSIN ACETATE 4 MCG/ML AMP IVPB SCH (07:37)
[2022-03-06 08:43] LABS: BASO % 0.7 % (0-2.0); HEMATOCRIT 27.4 % (32.4-45.2); HEMOGLOBIN 9.3 GM/dL (10.7-15.3); LYMPH % 27.5 % (8-40); MCH 30.3 pg (25.7-33.7); MCHC 34.1 g/dl (32.0-36.0); MEAN CELL VOLUME 88.7 fl (80-96); MEAN PLT VOLUME 8.4 fl (7.5-11.1); MONO % 7.9 % (3.8-10.2); NEUT % 62.9 % (42.8-82.8); PLATELET COUNT 86 10^3/uL (134-434); RBC 3.08 M/mm3 (3.60-5.2); RDW 14.6 % (11.6-15.6); WHITE BLOOD COUNT 4.9 K/mm3 (4.0-10.0)
[2022-03-06 08:47] LABS: INR 1.89 (0.83-1.09); PROTHROMBIN TIME (PATIENT) 21.9 SEC (9.7-13.0)
[2022-03-06] MEDS ORDERED: DESMOPRESSIN ACETATE 4 MCG/ML AMP IVPB ONE ×2 (08:47→09:00)
[2022-03-06] MEDS ORDERED: SODIUM CHLORIDE IVPB ONE (09:00)
[2022-03-06] MEDS ORDERED: DESMOPRESSIN ACETATE IVPB ONE (09:00)
[2022-03-06 09:04] LABS: CHLORIDE 108 mmol/L (98-107); SODIUM 144 mmol/L (136-145)
[2022-03-06 09:14] LABS: ALBUMIN 2.4 g/dl (3.4-5.0)
[2022-03-06 09:15] LABS: BLOOD UREA NITROGEN 6.9 mg/dL (7-18); GLUCOSE,RANDOM 124 mg/dL (74-106)
[2022-03-06 09:16] LABS: BILIRUBIN,TOTAL 0.9 mg/dL (0.2-1)
[2022-03-06 09:17] LABS: ALK PHOS 65 U/L (45-117); ANION GAP 6 MMOL/L (8-16); CALCIUM 8.3 mg/dL (8.5-10.1); CO2 30 mmol/L (21-32); MAGNESIUM 1.6 mg/dL (1.8-2.4); TOT PROT 4.2 g/dl (6.4-8.2)
[2022-03-06 09:18] LABS: SGOT/AST 25 U/L (15-37)
[2022-03-06] MEDS: DEXTROSE 5%-WATER - 1,000 ML IV SCH (09:18)
[2022-03-06 09:19] LABS: SGPT/ALT < 6 U/L (13-61)
[2022-03-06] MEDS: SEVELAMER CARBONATE 800 MG TAB (FP) PO SCH ×3 (09:24→17:17)
[2022-03-06] MEDS: ESCITALOPRAM OXALATE 10 MG TABLET PO SCH (09:25)
[2022-03-06] MEDS: PANTOPRAZOLE SODIUM 40 MG VIAL IVPUSH SCH (09:30)
[2022-03-06] MEDS: LEVOTHYROXINE SODIUM 100 MCG 5 ML VIAL IVPUSH SCH (09:30)
[2022-03-06] MEDS: VITAMIN B COMP W-C 1 EA TABLET (NEPHRO-VITE) PO SCH (09:30)
[2022-03-06] MEDS ORDERED: MAGNESIUM SULF 50% (8.12 MEQ/2 ML-1 GM VIAL) IVPB ONE (13:55)
[2022-03-06 16:54] LABS: INR 1.91 (0.83-1.09); PROTHROMBIN TIME (PATIENT) 22.1 SEC (9.7-13.0)
[2022-03-06 16:56] LABS: BASO % 0.6 % (0-2.0); EOS % 0.9 % (0-4.5); HEMOGLOBIN 9.5 GM/dL (10.7-15.3); LYMPH % 23.5 % (8-40); MCH 29.8 pg (25.7-33.7); MCHC 32.9 g/dl (32.0-36.0); MEAN CELL VOLUME 90.7 fl (80-96); MEAN PLT VOLUME 8.6 fl (7.5-11.1); MONO % 7.2 % (3.8-10.2); NEUT % 67.8 % (42.8-82.8); PLATELET COUNT 84 10^3/uL (134-434); RDW 14.6 % (11.6-15.6); WHITE BLOOD COUNT 4.7 K/mm3 (4.0-10.0)
[2022-03-07] MEDS: ACETAMINOPHEN 1000 MG/100 ML BAG IVPB PRN (03:37)
[2022-03-07] MEDS ORDERED: LIDOCAINE 5% TOPICAL PATCH TP ONE (05:20)
[2022-03-07] MEDS: INSULIN SLIDING SCALE (NOVOLOG) 1 VIAL SQ SCH ×4 (06:10→21:54)
[2022-03-07] MEDS: CARBIDOPA/LEVODOPA 25/100 TABLET (FP) PO SCH ×3 (06:26→21:55)
[2022-03-07] MEDS: SEVELAMER CARBONATE 800 MG TAB (FP) PO SCH ×3 (09:22→17:15)
[2022-03-07] MEDS: VITAMIN B COMP W-C 1 EA TABLET (NEPHRO-VITE) PO SCH (09:23)
[2022-03-07] MEDS: ESCITALOPRAM OXALATE 10 MG TABLET PO SCH (09:23)
[2022-03-07] MEDS: LEVOTHYROXINE SODIUM 100 MCG 5 ML VIAL IVPUSH SCH (09:23)
[2022-03-07] MEDS: PANTOPRAZOLE SODIUM 40 MG VIAL IVPUSH SCH (09:23)
[2022-03-07 09:54] LABS: INR 1.9 (0.83-1.09)
[2022-03-07 09:58] LABS: BASO % 0.6 % (0-2.0); EOS % 1.3 % (0-4.5); HEMATOCRIT 22.2 % (32.4-45.2); HEMOGLOBIN 7.4 GM/dL (10.7-15.3); LYMPH % 25.5 % (8-40); MCH 30.2 pg (25.7-33.7); MCHC 33.2 g/dl (32.0-36.0); MEAN CELL VOLUME 91.1 fl (80-96); MEAN PLT VOLUME 8.6 fl (7.5-11.1); MONO % 7.4 % (3.8-10.2); NEUT % 65.2 % (42.8-82.8); PLATELET COUNT 97 10^3/uL (134-434); RBC 2.44 M/mm3 (3.60-5.2); RDW 14.5 % (11.6-15.6); WHITE BLOOD COUNT 4.3 K/mm3 (4.0-10.0)
[2022-03-07] MEDS ORDERED: oxyCODONE HCL 5 MG TABLET PO PRN (09:58)
[2022-03-07 10:08] LABS: CHLORIDE 106 mmol/L (98-107); SODIUM 141 mmol/L (136-145)
[2022-03-07 10:10] LABS: CALCIUM 8.5 mg/dL (8.5-10.1)
[2022-03-07 10:11] LABS: ALBUMIN 2.3 g/dl (3.4-5.0); ANION GAP 6 MMOL/L (8-16); BLOOD UREA NITROGEN 12.4 mg/dL (7-18); CO2 29 mmol/L (21-32); GLUCOSE,RANDOM 142 mg/dL (74-106)
[2022-03-07 10:14] LABS: CREATININE 2.7 mg/dL (0.55-1.3); SGOT/AST 24 U/L (15-37)
[2022-03-07 10:15] LABS: BILIRUBIN,TOTAL 0.9 mg/dL (0.2-1)
[2022-03-07 10:16] LABS: TOT PROT 4.2 g/dl (6.4-8.2)
[2022-03-07 10:17] LABS: ALK PHOS 62 U/L (45-117)
[2022-03-07 10:19] LABS: SGPT/ALT < 6 U/L (13-61)
[2022-03-07 18:57] LABS: HEMOGLOBIN 9.6 GM/dL (10.7-15.3); MCHC 33.2 g/dl (32.0-36.0); MEAN CELL VOLUME 90.3 fl (80-96); MEAN PLT VOLUME 8.6 fl (7.5-11.1); PLATELET COUNT 90 10^3/uL (134-434); RBC 3.21 M/mm3 (3.60-5.2); RDW 15.4 % (11.6-15.6); WHITE BLOOD COUNT 4.9 K/mm3 (4.0-10.0)
[2022-03-07 22:25] LABS: ANISOCYTOSIS 1+; MACROCYTOSIS 0; PLATELET ESTIMATE DECREASED
[2022-03-07] MEDS: LIDOCAINE PATCH REMOVAL MC SCH (22:26)
[2022-03-08] MEDS: CARBIDOPA/LEVODOPA 25/100 TABLET (FP) PO SCH ×3 (06:10→21:39)
[2022-03-08] MEDS: INSULIN SLIDING SCALE (NOVOLOG) 1 VIAL SQ SCH ×4 (06:21→21:39)
[2022-03-08] MEDS: SEVELAMER CARBONATE 800 MG TAB (FP) PO SCH ×3 (07:57→16:48)
[2022-03-08 08:58] LABS: BASO % 0.6 % (0-2.0); HEMATOCRIT 23.3 % (32.4-45.2); HEMOGLOBIN 7.7 GM/dL (10.7-15.3); MCH 29.7 pg (25.7-33.7); MCHC 33.1 g/dl (32.0-36.0); MEAN CELL VOLUME 89.8 fl (80-96); MEAN PLT VOLUME 9.1 fl (7.5-11.1); MONO % 7.3 % (3.8-10.2); NEUT % 60.1 % (42.8-82.8); PLATELET COUNT 101 10^3/uL (134-434); RDW 15.6 % (11.6-15.6); WHITE BLOOD COUNT 3.9 K/mm3 (4.0-10.0)
[2022-03-08] MEDS: PANTOPRAZOLE SODIUM 40 MG VIAL IVPUSH SCH (09:14)
[2022-03-08] MEDS: LEVOTHYROXINE SODIUM 100 MCG 5 ML VIAL IVPUSH SCH (09:14)
[2022-03-08] MEDS: VITAMIN B COMP W-C 1 EA TABLET (NEPHRO-VITE) PO SCH (09:15)
[2022-03-08] MEDS: ESCITALOPRAM OXALATE 10 MG TABLET PO SCH (09:15)
[2022-03-08 09:26] LABS: CALCIUM 8.6 mg/dL (8.5-10.1)
[2022-03-08 09:27] LABS: ALBUMIN 2.4 g/dl (3.4-5.0); BLOOD UREA NITROGEN 17.4 mg/dL (7-18); MAGNESIUM 2.1 mg/dL (1.8-2.4)
[2022-03-08 09:30] LABS: CREATININE 3.2 mg/dL (0.55-1.3)
[2022-03-08 09:32] LABS: BILIRUBIN,TOTAL 0.7 mg/dL (0.2-1); TOT PROT 4.2 g/dl (6.4-8.2)
[2022-03-08] MEDS ORDERED: SODIUM CHLORIDE 250 ML IV PRN (11:29)
[2022-03-08] MEDS: LIDOCAINE PATCH REMOVAL MC SCH (21:38)
[2022-03-08 23:12] LABS: BASO % 0.4 % (0-2.0); EOS % 0.9 % (0-4.5); HEMOGLOBIN 8.2 GM/dL (10.7-15.3); LYMPH % 23.2 % (8-40); MCH 29.8 pg (25.7-33.7); MCHC 32.8 g/dl (32.0-36.0); MEAN CELL VOLUME 90.8 fl (80-96); MEAN PLT VOLUME 8.1 fl (7.5-11.1); MONO % 7.2 % (3.8-10.2); NEUT % 68.3 % (42.8-82.8); PLATELET COUNT 85 10^3/uL (134-434); RBC 2.76 M/mm3 (3.60-5.2); RDW 15.9 % (11.6-15.6); WHITE BLOOD COUNT 3.8 K/mm3 (4.0-10.0)
[2022-03-09] MEDS: INSULIN SLIDING SCALE (NOVOLOG) 1 VIAL SQ SCH ×4 (06:38→21:20)
[2022-03-09] MEDS: CARBIDOPA/LEVODOPA 25/100 TABLET (FP) PO SCH ×3 (06:38→21:09)
[2022-03-09 08:42] LABS: BASO % 0.3 % (0-2.0); EOS % 1.4 % (0-4.5); HEMATOCRIT 23.1 % (32.4-45.2); HEMOGLOBIN 7.7 GM/dL (10.7-15.3); LYMPH % 22.3 % (8-40); MCH 30.1 pg (25.7-33.7); MCHC 33.1 g/dl (32.0-36.0); MEAN PLT VOLUME 8.5 fl (7.5-11.1); MONO % 7.9 % (3.8-10.2); NEUT % 68.1 % (42.8-82.8); PLATELET COUNT 92 10^3/uL (134-434); RBC 2.54 M/mm3 (3.60-5.2); RDW 15.6 % (11.6-15.6); WHITE BLOOD COUNT 3.5 K/mm3 (4.0-10.0)
[2022-03-09] MEDS: SEVELAMER CARBONATE 800 MG TAB (FP) PO SCH ×3 (08:48→17:36)
[2022-03-09 08:57] LABS: BLOOD UREA NITROGEN 10.7 mg/dL (7-18)
[2022-03-09 08:58] LABS: ALBUMIN 2.2 g/dl (3.4-5.0)
[2022-03-09 09:01] LABS: CREATININE 2.4 mg/dL (0.55-1.3)
[2022-03-09 09:02] LABS: BILIRUBIN,TOTAL 0.6 mg/dL (0.2-1)
[2022-03-09] MEDS: ESCITALOPRAM OXALATE 10 MG TABLET PO SCH (10:10)
[2022-03-09] MEDS: PANTOPRAZOLE SODIUM 40 MG VIAL IVPUSH SCH (10:10)
[2022-03-09] MEDS: VITAMIN B COMP W-C 1 EA TABLET (NEPHRO-VITE) PO SCH (10:10)
[2022-03-09] MEDS ORDERED: SODIUM CHLORIDE 250 ML IV PRN (11:48)
[2022-03-09] MEDS: LEVOTHYROXINE SODIUM 100 MCG 5 ML VIAL IVPUSH SCH (12:07)
[2022-03-09] MEDS: ATORVASTATIN CA 80 MG TABLET (FP) PO SCH (21:06)
[2022-03-09] MEDS: AMINO ACIDS 4.25%/D5W 1,000 ML IV SCH (21:09)
[2022-03-09] MEDS: LIDOCAINE PATCH REMOVAL MC SCH (21:09)
[2022-03-10] MEDS: CARBIDOPA/LEVODOPA 25/100 TABLET (FP) PO SCH ×3 (06:09→21:26)
[2022-03-10] MEDS: INSULIN SLIDING SCALE (NOVOLOG) 1 VIAL SQ SCH ×4 (06:14→21:35)
[2022-03-10 07:46] LABS: HEMATOCRIT 27.1 % (32.4-45.2); HEMOGLOBIN 9.3 GM/dL (10.7-15.3); MCH 30.6 pg (25.7-33.7); MCHC 34.3 g/dl (32.0-36.0); MEAN CELL VOLUME 89.2 fl (80-96); MEAN PLT VOLUME 7.5 fl (7.5-11.1); PLATELET COUNT 130 10^3/uL (134-434); RBC 3.04 M/mm3 (3.60-5.2); RDW 15.5 % (11.6-15.6); WHITE BLOOD COUNT 3.6 K/mm3 (4.0-10.0)
[2022-03-10 07:53] LABS: CREATININE 2.6 mg/dL (0.55-1.3)
[2022-03-10 07:54] LABS: BLOOD UREA NITROGEN 12.8 mg/dL (7-18)
[2022-03-10 07:55] LABS: BILIRUBIN,TOTAL 0.7 mg/dL (0.2-1); TOT PROT 3.8 g/dl (6.4-8.2)
[2022-03-10] MEDS: SEVELAMER CARBONATE 800 MG TAB (FP) PO SCH ×3 (08:17→18:40)
[2022-03-10 09:23] LABS: ALBUMIN 2.2 g/dl (3.4-5.0)
[2022-03-10] MEDS ORDERED: EPOETIN ALFA-EPBX 10,000 UNIT/ML VIAL IVPUSH ONE (10:00)
[2022-03-10] MEDS: ALBUMIN HUMAN 25% 12.5 GM/50 ML VIAL IV SCH ×4 (10:00→11:30)
[2022-03-10] MEDS: ESCITALOPRAM OXALATE 10 MG TABLET PO SCH (13:36)
[2022-03-10] MEDS: PANTOPRAZOLE SODIUM 40 MG VIAL IVPUSH SCH (13:36)
[2022-03-10] MEDS: VITAMIN B COMP W-C 1 EA TABLET (NEPHRO-VITE) PO SCH (13:36)
[2022-03-10] MEDS: LEVOTHYROXINE SODIUM 100 MCG 5 ML VIAL IVPUSH SCH (13:37)
[2022-03-10] MEDS: AMINO ACIDS 4.25%/D5W 1,000 ML IV SCH (14:45)
[2022-03-10] MEDS: ATORVASTATIN CA 80 MG TABLET (FP) PO SCH (21:26)
[2022-03-10] MEDS: LIDOCAINE PATCH REMOVAL MC SCH (21:54)
[2022-03-11] MEDS: CARBIDOPA/LEVODOPA 25/100 TABLET (FP) PO SCH ×3 (05:56→21:43)
[2022-03-11] MEDS: INSULIN SLIDING SCALE (NOVOLOG) 1 VIAL SQ SCH ×4 (06:04→21:42)
[2022-03-11] MEDS: SEVELAMER CARBONATE 800 MG TAB (FP) PO SCH ×3 (08:40→16:53)
[2022-03-11] MEDS: ESCITALOPRAM OXALATE 10 MG TABLET PO SCH (10:01)
[2022-03-11] MEDS: VITAMIN B COMP W-C 1 EA TABLET (NEPHRO-VITE) PO SCH (10:01)
[2022-03-11] MEDS: LEVOTHYROXINE SODIUM 100 MCG 5 ML VIAL IVPUSH SCH (10:02)
[2022-03-11] MEDS: PANTOPRAZOLE SODIUM 40 MG VIAL IVPUSH SCH (10:02)
[2022-03-11 13:19] LABS: BASO % 0.1 % (0-2.0); EOS % 0.5 % (0-4.5); HEMATOCRIT 23.6 % (32.4-45.2); HEMOGLOBIN 7.9 GM/dL (10.7-15.3); LYMPH % 16.5 % (8-40); MCH 30.5 pg (25.7-33.7); MCHC 33.5 g/dl (32.0-36.0); MEAN CELL VOLUME 90.8 fl (80-96); MEAN PLT VOLUME 8.6 fl (7.5-11.1); MONO % 7.2 % (3.8-10.2); NEUT % 75.7 % (42.8-82.8); PLATELET COUNT 114 10^3/uL (134-434); RDW 15.8 % (11.6-15.6)
[2022-03-11 13:48] LABS: ALBUMIN 2.2 g/dl (3.4-5.0); CALCIUM 7.9 mg/dL (8.5-10.1)
[2022-03-11 13:49] LABS: MAGNESIUM 1.6 mg/dL (1.8-2.4)
[2022-03-11 13:53] LABS: TOT PROT 3.9 g/dl (6.4-8.2)
[2022-03-11 14:06] LABS: BILIRUBIN,TOTAL 0.5 mg/dL (0.2-1); CREATININE 2.4 mg/dL (0.55-1.3)
[2022-03-11] MEDS: AMINO ACIDS 4.25%/D5W 1,000 ML IV SCH (14:30)
[2022-03-11] MEDS ORDERED: MAGNESIUM SULF 50% (8.12 MEQ/2 ML-1 GM VIAL) IVPB ONE (17:02)
[2022-03-11] MEDS ORDERED: SODIUM CHLORIDE 250 ML IV PRN (20:59)
[2022-03-11] MEDS: ATORVASTATIN CA 80 MG TABLET (FP) PO SCH (21:43)
[2022-03-12] MEDS: INSULIN SLIDING SCALE (NOVOLOG) 1 VIAL SQ SCH ×4 (07:02→22:39)
[2022-03-12] MEDS: CARBIDOPA/LEVODOPA 25/100 TABLET (FP) PO SCH ×3 (07:02→22:39)
[2022-03-12 08:19] LABS: BASO % 0.4 % (0-2.0); EOS % 1.5 % (0-4.5); LYMPH % 25.1 % (8-40); MEAN PLT VOLUME 8.5 fl (7.5-11.1); MONO % 8.6 % (3.8-10.2); NEUT % 64.4 % (42.8-82.8); PLATELET COUNT 100 10^3/uL (134-434); RBC 1.87 M/mm3 (3.60-5.2); RDW 15.8 % (11.6-15.6)
[2022-03-12 08:43] LABS: CALCIUM 7.5 mg/dL (8.5-10.1)
[2022-03-12 08:44] LABS: BLOOD UREA NITROGEN 16.6 mg/dL (7-18); MAGNESIUM 1.9 mg/dL (1.8-2.4)
[2022-03-12 08:47] LABS: CREATININE 2.5 mg/dL (0.55-1.3)
[2022-03-12 08:49] LABS: BILIRUBIN,TOTAL 0.3 mg/dL (0.2-1); TOT PROT 3.3 g/dl (6.4-8.2)
[2022-03-12 09:01] LABS: HEMOGLOBIN 5.8 GM/dL (10.7-15.3)
[2022-03-12 09:04] LABS: ALBUMIN 1.7 g/dl (3.4-5.0)
[2022-03-12] MEDS: ESCITALOPRAM OXALATE 10 MG TABLET PO SCH (10:07)
[2022-03-12] MEDS: VITAMIN B COMP W-C 1 EA TABLET (NEPHRO-VITE) PO SCH (10:08)
[2022-03-12] MEDS: PANTOPRAZOLE SODIUM 40 MG VIAL IVPUSH SCH (10:08)
[2022-03-12] MEDS: LEVOTHYROXINE SODIUM 100 MCG 5 ML VIAL IVPUSH SCH (10:08)
[2022-03-12] MEDS: SEVELAMER CARBONATE 800 MG TAB (FP) PO SCH ×3 (10:09→17:13)
[2022-03-12] MEDS ORDERED: EPOETIN ALFA-EPBX 20,000 UNIT/ML VIAL IVPUSH ONE (14:15)
[2022-03-12] MEDS: AMINO ACIDS 4.25%/D5W 1,000 ML IV SCH (15:13)
[2022-03-12] MEDS ORDERED: ONDANSETRON 4 MG/2 ML VIAL IVPUSH PRN (18:02)
[2022-03-12 18:03] LABS: BASO % 0.4 % (0-2.0); EOS % 1.4 % (0-4.5); HEMATOCRIT 25.6 % (32.4-45.2); HEMOGLOBIN 8.7 GM/dL (10.7-15.3); LYMPH % 16.7 % (8-40); MEAN CELL VOLUME 88.4 fl (80-96); MEAN PLT VOLUME 8.3 fl (7.5-11.1); MONO % 11.1 % (3.8-10.2); NEUT % 70.4 % (42.8-82.8); PLATELET COUNT 194 10^3/uL (134-434); RBC 2.89 M/mm3 (3.60-5.2); RDW 14.4 % (11.6-15.6); WHITE BLOOD COUNT 4.5 K/mm3 (4.0-10.0)
[2022-03-12] MEDS: TRIMETHOBENZAMIDE HCL 200MG/2ML INJ IM PRN (18:09)
[2022-03-12 18:11] LABS: INR 1.65 (0.83-1.09); PROTHROMBIN TIME (PATIENT) 19.1 SEC (9.7-13.0)
[2022-03-12 18:14] LABS: ACTIVATED PTT 28.7 SECONDS (25.2-36.5)
[2022-03-12] MEDS ORDERED: morphine SULFATE 4 MG/ML VIAL IVPUSH ONE (20:14)
[2022-03-12] MEDS ORDERED: FAT EMULSION/OLIVE/SOY (CLINOLIPID) 250 ML EMULSION IV SCH (22:00)
[2022-03-12] MEDS: ATORVASTATIN CA 80 MG TABLET (FP) PO SCH (22:38)
[2022-03-13] MEDS: AMINO ACIDS 4.25%/D5W 1,000 ML IV SCH (04:29)
[2022-03-13] MEDS: FAT EMULSION/OLIVE/SOY/PHOSPHO 250 ML IV SCH ×2 (04:29→21:45)
[2022-03-13] MEDS: CARBIDOPA/LEVODOPA 25/100 TABLET (FP) PO SCH ×3 (06:34→21:34)
[2022-03-13] MEDS: INSULIN SLIDING SCALE (NOVOLOG) 1 VIAL SQ SCH ×4 (06:34→21:35)
[2022-03-13 08:23] LABS: BASO % 0.5 % (0-2.0); EOS % 1.7 % (0-4.5); HEMATOCRIT 21.9 % (32.4-45.2); HEMOGLOBIN 7.6 GM/dL (10.7-15.3); LYMPH % 21.2 % (8-40); MCH 30.8 pg (25.7-33.7); MCHC 34.8 g/dl (32.0-36.0); MEAN CELL VOLUME 88.6 fl (80-96); MONO % 11.2 % (3.8-10.2); NEUT % 65.4 % (42.8-82.8); PLATELET COUNT 183 10^3/uL (134-434); RBC 2.47 M/mm3 (3.60-5.2); RDW 14.5 % (11.6-15.6); WHITE BLOOD COUNT 3.9 K/mm3 (4.0-10.0)
[2022-03-13 08:30] LABS: INR 1.68 (0.83-1.09); PROTHROMBIN TIME (PATIENT) 19.4 SEC (9.7-13.0)
[2022-03-13] MEDS: SEVELAMER CARBONATE 800 MG TAB (FP) PO SCH ×4 (08:36→16:46)
[2022-03-13 08:53] LABS: CALCIUM 8.3 mg/dL (8.5-10.1)
[2022-03-13 08:54] LABS: BLOOD UREA NITROGEN 13.8 mg/dL (7-18); MAGNESIUM 1.7 mg/dL (1.8-2.4)
[2022-03-13 08:55] LABS: CREATININE 1.9 mg/dL (0.55-1.3)
[2022-03-13 08:57] LABS: BILIRUBIN,TOTAL 0.8 mg/dL (0.2-1)
[2022-03-13] MEDS ORDERED: methylPREDNISolone NA SUCC 125 MG/2 ML VIAL IVPUSH ONE (09:18)
[2022-03-13 09:25] LABS: ALBUMIN 2.2 g/dl (3.4-5.0)
[2022-03-13] MEDS ORDERED: methylPREDNISolone NA SUCC 40 MG/1 ML VIAL IVPUSH ONE (09:45)
[2022-03-13] MEDS: PANTOPRAZOLE SODIUM 40 MG VIAL IVPUSH SCH (09:50)
[2022-03-13] MEDS: VITAMIN B COMP W-C 1 EA TABLET (NEPHRO-VITE) PO SCH (10:38)
[2022-03-13] MEDS: ESCITALOPRAM OXALATE 10 MG TABLET PO SCH (10:38)
[2022-03-13] MEDS: LEVOTHYROXINE SODIUM 100 MCG 5 ML VIAL IVPUSH SCH (11:02)
[2022-03-13] MEDS ORDERED: PEG 3350/NA SULF BICARB CL/KCL 4000 ML SOLN.RECON PO ONE (19:00)
[2022-03-13] MEDS: ATORVASTATIN CA 80 MG TABLET (FP) PO SCH (21:34)
[2022-03-14] MEDS: INSULIN SLIDING SCALE (NOVOLOG) 1 VIAL SQ SCH ×4 (06:50→23:11)
[2022-03-14] MEDS: CARBIDOPA/LEVODOPA 25/100 TABLET (FP) PO SCH ×3 (06:50→22:41)
[2022-03-14] MEDS: AMINO ACIDS 4.25%/D5W 1,000 ML IV SCH ×2 (07:22→15:03)
[2022-03-14] MEDS: ESCITALOPRAM OXALATE 10 MG TABLET PO SCH (09:15)
[2022-03-14] MEDS: PANTOPRAZOLE SODIUM 40 MG VIAL IVPUSH SCH (09:15)
[2022-03-14] MEDS: VITAMIN B COMP W-C 1 EA TABLET (NEPHRO-VITE) PO SCH (09:15)
[2022-03-14] MEDS: SEVELAMER CARBONATE 800 MG TAB (FP) PO SCH ×3 (09:16→17:27)
[2022-03-14] MEDS: LEVOTHYROXINE SODIUM 100 MCG 5 ML VIAL IVPUSH SCH (09:17)
[2022-03-14] MEDS ORDERED: FUROSEMIDE 100 MG/10 ML INJECTABLE VIAL IVPB SCH (11:45)
[2022-03-14 12:12] LABS: BASO % 0.2 % (0-2.0); EOS % 0.1 % (0-4.5); HEMATOCRIT 31.1 % (32.4-45.2); HEMOGLOBIN 10.7 GM/dL (10.7-15.3); LYMPH % 23.3 % (8-40); MCH 30.4 pg (25.7-33.7); MCHC 34.3 g/dl (32.0-36.0); MEAN CELL VOLUME 88.8 fl (80-96); NEUT % 66.4 % (42.8-82.8); PLATELET COUNT 155 10^3/uL (134-434); RBC 3.51 M/mm3 (3.60-5.2); RDW 14.7 % (11.6-15.6); WHITE BLOOD COUNT 3.8 K/mm3 (4.0-10.0)
[2022-03-14 12:30] LABS: CALCIUM 9.2 mg/dL (8.5-10.1)
[2022-03-14 12:31] LABS: ALBUMIN 2.3 g/dl (3.4-5.0); BLOOD UREA NITROGEN 23.7 mg/dL (7-18); MAGNESIUM 1.9 mg/dL (1.8-2.4)
[2022-03-14 12:34] LABS: CREATININE 2.6 mg/dL (0.55-1.3)
[2022-03-14 12:35] LABS: BILIRUBIN,TOTAL 0.7 mg/dL (0.2-1)
[2022-03-14 12:36] LABS: TOT PROT 4.3 g/dl (6.4-8.2)
[2022-03-14] MEDS ORDERED: EPINEPHrine 1:10,000 (P-F SYR) 1 MG/10 ML DISP.SYRIN IVPUSH ONE (13:12)
[2022-03-14] MEDS ORDERED: EPINEPHrine 1:10,000 (P-F SYR) 1 MG/10 ML DISP.SYRIN ONE (15:00)
[2022-03-14 15:21] LABS: BASO % 0.3 % (0-2.0); EOS % 0.1 % (0-4.5); HEMATOCRIT 33.3 % (32.4-45.2); HEMOGLOBIN 11.4 GM/dL (10.7-15.3); LYMPH % 22.7 % (8-40); MCH 30.3 pg (25.7-33.7); MCHC 34.1 g/dl (32.0-36.0); MEAN CELL VOLUME 88.8 fl (80-96); MEAN PLT VOLUME 8.9 fl (7.5-11.1); MONO % 11.1 % (3.8-10.2); NEUT % 65.8 % (42.8-82.8); PLATELET COUNT 181 10^3/uL (134-434); RBC 3.75 M/mm3 (3.60-5.2); RDW 14.3 % (11.6-15.6); WHITE BLOOD COUNT 4.5 K/mm3 (4.0-10.0)
[2022-03-14 15:51] LABS: CALCIUM 9.4 mg/dL (8.5-10.1)
[2022-03-14 15:52] LABS: ALBUMIN 2.6 g/dl (3.4-5.0); BLOOD UREA NITROGEN 22.7 mg/dL (7-18); MAGNESIUM 1.9 mg/dL (1.8-2.4)
[2022-03-14 15:55] LABS: CREATININE 2.5 mg/dL (0.55-1.3)
[2022-03-14 15:56] LABS: BILIRUBIN,TOTAL 0.7 mg/dL (0.2-1)
[2022-03-14 15:57] LABS: TOT PROT 4.8 g/dl (6.4-8.2)
[2022-03-14] MEDS ORDERED: PHYTONADIONE 10 MG/1 ML AMP SQ ONE (16:13)
[2022-03-14 19:30] LABS: INR 1.52 (0.83-1.09); PROTHROMBIN TIME (PATIENT) 17.6 SEC (9.7-13.0)
[2022-03-14] MEDS: ATORVASTATIN CA 80 MG TABLET (FP) PO SCH (22:40)
[2022-03-14] MEDS: FAT EMULSION/OLIVE/SOY/PHOSPHO 250 ML IV SCH (22:40)
[2022-03-15] MEDS: INSULIN SLIDING SCALE (NOVOLOG) 1 VIAL SQ SCH ×4 (06:45→21:25)
[2022-03-15] MEDS: CARBIDOPA/LEVODOPA 25/100 TABLET (FP) PO SCH ×3 (06:45→21:18)
[2022-03-15] MEDS: SEVELAMER CARBONATE 800 MG TAB (FP) PO SCH ×3 (08:29→18:32)
[2022-03-15] MEDS: VITAMIN B COMP W-C 1 EA TABLET (NEPHRO-VITE) PO SCH (10:24)
[2022-03-15] MEDS: ESCITALOPRAM OXALATE 10 MG TABLET PO SCH (10:24)
[2022-03-15] MEDS: FUROSEMIDE 40 MG TABLET (FP) PO SCH ×2 (10:25→14:33)
[2022-03-15] MEDS: PANTOPRAZOLE SODIUM 40 MG VIAL IVPUSH SCH (10:26)
[2022-03-15] MEDS: LEVOTHYROXINE SODIUM 100 MCG 5 ML VIAL IVPUSH SCH (10:26)
[2022-03-15] MEDS ORDERED: SODIUM CHLORIDE 250 ML IV PRN (11:07)
[2022-03-15 11:21] LABS: BASO % 0.5 % (0-2.0); EOS % 1.6 % (0-4.5); HEMATOCRIT 26.6 % (32.4-45.2); HEMOGLOBIN 8.9 GM/dL (10.7-15.3); LYMPH % 18.8 % (8-40); MCHC 33.3 g/dl (32.0-36.0); MEAN CELL VOLUME 90.1 fl (80-96); MEAN PLT VOLUME 8.2 fl (7.5-11.1); NEUT % 65.1 % (42.8-82.8); PLATELET COUNT 148 10^3/uL (134-434); RBC 2.95 M/mm3 (3.60-5.2); RDW 14.5 % (11.6-15.6); WHITE BLOOD COUNT 3.4 K/mm3 (4.0-10.0)
[2022-03-15] MEDS ORDERED: EPOETIN ALFA-EPBX 10,000 UNIT/ML VIAL SQ ONE (11:30)
[2022-03-15 11:36] LABS: INR 1.92 (0.83-1.09); PROTHROMBIN TIME (PATIENT) 22.2 SEC (9.7-13.0)
[2022-03-15 11:43] LABS: CALCIUM 8.2 mg/dL (8.5-10.1)
[2022-03-15 11:44] LABS: BLOOD UREA NITROGEN 26.5 mg/dL (7-18); MAGNESIUM 1.7 mg/dL (1.8-2.4)
[2022-03-15 11:47] LABS: CREATININE 2.7 mg/dL (0.55-1.3)
[2022-03-15 11:49] LABS: BILIRUBIN,TOTAL 0.6 mg/dL (0.2-1)
[2022-03-15] MEDS: ATORVASTATIN CA 80 MG TABLET (FP) PO SCH (21:17)
[2022-03-16] MEDS: CARBIDOPA/LEVODOPA 25/100 TABLET (FP) PO SCH ×3 (06:08→21:01)
[2022-03-16] MEDS: LEVOTHYROXINE NA 75 MCG TABLET (FP) PO SCH (06:08)
[2022-03-16] MEDS: FUROSEMIDE 40 MG TABLET (FP) PO SCH ×2 (06:08→14:15)
[2022-03-16] MEDS: INSULIN SLIDING SCALE (NOVOLOG) 1 VIAL SQ SCH ×4 (06:11→21:01)
[2022-03-16] MEDS: SEVELAMER CARBONATE 800 MG TAB (FP) PO SCH ×3 (09:36→17:09)
[2022-03-16] MEDS: VITAMIN B COMP W-C 1 EA TABLET (NEPHRO-VITE) PO SCH (09:36)
[2022-03-16] MEDS: PANTOPRAZOLE 40 MG TABLET PO SCH (09:36)
[2022-03-16] MEDS: ESCITALOPRAM OXALATE 10 MG TABLET PO SCH (09:37)
[2022-03-16] MEDS ORDERED: SODIUM CHLORIDE 250 ML IV PRN (20:11)
[2022-03-16] MEDS: ATORVASTATIN CA 80 MG TABLET (FP) PO SCH (21:01)
[2022-03-17] MEDS: LEVOTHYROXINE NA 75 MCG TABLET (FP) PO SCH (06:07)
[2022-03-17] MEDS: FUROSEMIDE 40 MG TABLET (FP) PO SCH ×2 (06:07→13:19)
[2022-03-17] MEDS: CARBIDOPA/LEVODOPA 25/100 TABLET (FP) PO SCH ×3 (06:07→21:02)
[2022-03-17] MEDS: INSULIN SLIDING SCALE (NOVOLOG) 1 VIAL SQ SCH ×4 (06:11→21:02)
[2022-03-17 09:00] LABS: HEMATOCRIT 26.6 % (32.4-45.2); MCHC 33.7 g/dl (32.0-36.0); MEAN CELL VOLUME 92.1 fl (80-96); MEAN PLT VOLUME 9.1 fl (7.5-11.1); PLATELET COUNT 126 10^3/uL (134-434); RBC 2.89 M/mm3 (3.60-5.2); WHITE BLOOD COUNT 4.2 K/mm3 (4.0-10.0)
[2022-03-17] MEDS ORDERED: EPOETIN ALFA-EPBX 10,000 UNIT/ML VIAL IVPUSH ONE (09:00)
[2022-03-17 09:06] LABS: INR 1.76 (0.83-1.09); PROTHROMBIN TIME (PATIENT) 20.4 SEC (9.7-13.0)
[2022-03-17] MEDS: SEVELAMER CARBONATE 800 MG TAB (FP) PO SCH ×3 (09:06→16:42)
[2022-03-17 09:21] LABS: ALBUMIN 2.1 g/dl (3.4-5.0); CALCIUM 8.4 mg/dL (8.5-10.1)
[2022-03-17 09:22] LABS: BLOOD UREA NITROGEN 22.6 mg/dL (7-18)
[2022-03-17 09:24] LABS: CREATININE 2.7 mg/dL (0.55-1.3)
[2022-03-17 09:26] LABS: BILIRUBIN,TOTAL 0.5 mg/dL (0.2-1); TOT PROT 4.1 g/dl (6.4-8.2)
[2022-03-17] MEDS: ALBUMIN HUMAN 25% 100 ML VIAL IV SCH ×4 (09:30→11:00)
[2022-03-17] MEDS: ESCITALOPRAM OXALATE 10 MG TABLET PO SCH (11:48)
[2022-03-17] MEDS: PANTOPRAZOLE 40 MG TABLET PO SCH (11:52)
[2022-03-17] MEDS: VITAMIN B COMP W-C 1 EA TABLET (NEPHRO-VITE) PO SCH (11:54)
[2022-03-17] MEDS: TRIMETHOBENZAMIDE HCL 200MG/2ML INJ IM PRN (12:08)
[2022-03-17 14:46] LABS: MAGNESIUM 1.9 mg/dL (1.8-2.4)
[2022-03-17 14:50] LABS: PHOSPHOROUS 1.8 mg/dL (2.5-4.9)
[2022-03-17] MEDS: ALBUTEROL SO4 2.5/IPRATROPIUM 0.5 INH SOL 3 ML VIAL.NEB. NEB PRN (17:30)
[2022-03-17] MEDS: ATORVASTATIN CA 80 MG TABLET (FP) PO SCH (21:02)
[2022-03-18] MEDS: FUROSEMIDE 40 MG TABLET (FP) PO SCH ×2 (06:19→13:40)
[2022-03-18] MEDS: CARBIDOPA/LEVODOPA 25/100 TABLET (FP) PO SCH ×3 (06:19→21:29)
[2022-03-18] MEDS: LEVOTHYROXINE NA 75 MCG TABLET (FP) PO SCH (06:19)
[2022-03-18] MEDS: INSULIN SLIDING SCALE (NOVOLOG) 1 VIAL SQ SCH ×4 (06:22→21:27)
[2022-03-18] MEDS: SEVELAMER CARBONATE 800 MG TAB (FP) PO SCH ×3 (07:45→16:53)
[2022-03-18] MEDS: ALBUTEROL SO4 2.5/IPRATROPIUM 0.5 INH SOL 3 ML VIAL.NEB. NEB PRN (07:57)
[2022-03-18] MEDS: ESCITALOPRAM OXALATE 10 MG TABLET PO SCH (09:47)
[2022-03-18] MEDS: VITAMIN B COMP W-C 1 EA TABLET (NEPHRO-VITE) PO SCH (09:48)
[2022-03-18] MEDS: PANTOPRAZOLE 40 MG TABLET PO SCH (09:48)
[2022-03-18] MEDS ORDERED: INSULIN (LEVEMIR) 100 UNITS/ML UNITS SQ SCH (10:00)
[2022-03-18] MEDS: INSULIN (LEVEMIR) 100 UNITS/ML UNITS SQ SCH ×2 (11:08→21:28)
[2022-03-18] MEDS: ATORVASTATIN CA 80 MG TABLET (FP) PO SCH (21:29)
[2022-03-19] MEDS: ALBUTEROL SO4 2.5/IPRATROPIUM 0.5 INH SOL 3 ML VIAL.NEB. NEB PRN (04:53)
[2022-03-19] MEDS ORDERED: DEXAMETHASONE SOD PHOSPHATE 10 MG/1 ML VIAL PO ONE (05:40)
[2022-03-19] MEDS: CARBIDOPA/LEVODOPA 25/100 TABLET (FP) PO SCH ×3 (06:00→22:15)
[2022-03-19] MEDS: INSULIN SLIDING SCALE (NOVOLOG) 1 VIAL SQ SCH ×4 (06:01→22:15)
[2022-03-19] MEDS: FUROSEMIDE 40 MG TABLET (FP) PO SCH ×2 (06:01→14:28)
[2022-03-19] MEDS: INSULIN (LEVEMIR) 100 UNITS/ML UNITS SQ SCH ×2 (06:01→22:15)
[2022-03-19] MEDS: LEVOTHYROXINE NA 75 MCG TABLET (FP) PO SCH (06:02)
[2022-03-19] MEDS: SEVELAMER CARBONATE 800 MG TAB (FP) PO SCH ×3 (08:44→20:34)
[2022-03-19] MEDS: VITAMIN B COMP W-C 1 EA TABLET (NEPHRO-VITE) PO SCH (09:43)
[2022-03-19] MEDS: PANTOPRAZOLE 40 MG TABLET PO SCH (09:43)
[2022-03-19] MEDS: ESCITALOPRAM OXALATE 10 MG TABLET PO SCH (09:44)
[2022-03-19] MEDS: metoPROLOL SUCCINATE 25 MG TAB.SR.24H (FP) PO SCH (09:44)
[2022-03-19] MEDS ORDERED: EPOETIN ALFA-EPBX 10,000 UNIT/ML VIAL SQ ONE (11:15)
[2022-03-19] MEDS ORDERED: SODIUM CHLORIDE 250 ML IV PRN (11:16)
[2022-03-19] MEDS: ATORVASTATIN CA 80 MG TABLET (FP) PO SCH (22:15)
[2022-03-20] MEDS: TRIMETHOBENZAMIDE HCL 200MG/2ML INJ IM PRN (04:30)
[2022-03-20] MEDS: LEVOTHYROXINE NA 75 MCG TABLET (FP) PO SCH (06:39)
[2022-03-20] MEDS: FUROSEMIDE 40 MG TABLET (FP) PO SCH ×2 (06:39→14:59)
[2022-03-20] MEDS: CARBIDOPA/LEVODOPA 25/100 TABLET (FP) PO SCH ×3 (06:39→22:42)
[2022-03-20] MEDS: INSULIN (LEVEMIR) 100 UNITS/ML UNITS SQ SCH ×2 (06:40→22:38)
[2022-03-20] MEDS: INSULIN SLIDING SCALE (NOVOLOG) 1 VIAL SQ SCH ×3 (06:40→22:41)
[2022-03-20] MEDS: SEVELAMER CARBONATE 800 MG TAB (FP) PO SCH ×3 (08:41→17:17)
[2022-03-20] MEDS ORDERED: predniSONE 20 MG TABLET (UD) PO SCH (10:00)
[2022-03-20] MEDS: ESCITALOPRAM OXALATE 10 MG TABLET PO SCH (10:41)
[2022-03-20] MEDS: metoPROLOL SUCCINATE 25 MG TAB.SR.24H (FP) PO SCH (10:41)
[2022-03-20] MEDS: PANTOPRAZOLE 40 MG TABLET PO SCH (10:41)
[2022-03-20] MEDS: predniSONE 20 MG TABLET (UD) PO SCH (10:41)
[2022-03-20] MEDS: VITAMIN B COMP W-C 1 EA TABLET (NEPHRO-VITE) PO SCH (10:42)
[2022-03-20] MEDS: BUDESONIDE/FORMETEROL FUMARATE 160/4.5 mcg INHALER IH SCH ×2 (10:42→22:45)
[2022-03-20] MEDS ORDERED: ACETAMINOPHEN 325 MG TABLET (FP) PO ONE (22:12)
[2022-03-20] MEDS: ATORVASTATIN CA 80 MG TABLET (FP) PO SCH (22:42)
[2022-03-21] MEDS: INSULIN SLIDING SCALE (NOVOLOG) 1 VIAL SQ SCH ×4 (06:37→22:22)
[2022-03-21] MEDS: CARBIDOPA/LEVODOPA 25/100 TABLET (FP) PO SCH ×3 (06:37→22:23)
[2022-03-21] MEDS: FUROSEMIDE 40 MG TABLET (FP) PO SCH ×2 (06:38→17:14)
[2022-03-21] MEDS: INSULIN (LEVEMIR) 100 UNITS/ML UNITS SQ SCH ×2 (06:38→22:22)
[2022-03-21] MEDS: LEVOTHYROXINE NA 75 MCG TABLET (FP) PO SCH (07:09)
[2022-03-21] MEDS: SEVELAMER CARBONATE 800 MG TAB (FP) PO SCH ×3 (08:57→17:15)
[2022-03-21] MEDS: ESCITALOPRAM OXALATE 10 MG TABLET PO SCH (10:49)
[2022-03-21] MEDS: predniSONE 20 MG TABLET (UD) PO SCH (10:50)
[2022-03-21] MEDS: PANTOPRAZOLE 40 MG TABLET PO SCH (10:51)
[2022-03-21] MEDS: metoPROLOL SUCCINATE 25 MG TAB.SR.24H (FP) PO SCH (10:51)
[2022-03-21] MEDS: VITAMIN B COMP W-C 1 EA TABLET (NEPHRO-VITE) PO SCH (10:51)
[2022-03-21] MEDS: BUDESONIDE/FORMETEROL FUMARATE 160/4.5 mcg INHALER IH SCH ×2 (11:01→22:23)
[2022-03-21 13:45] LABS: HEMATOCRIT 29.7 % (32.4-45.2); HEMOGLOBIN 9.8 GM/dL (10.7-15.3); MCH 31.8 pg (25.7-33.7); MCHC 32.9 g/dl (32.0-36.0); MEAN CELL VOLUME 96.7 fl (80-96); MEAN PLT VOLUME 9.2 fl (7.5-11.1); PLATELET COUNT 128 10^3/uL (134-434); RBC 3.08 M/mm3 (3.60-5.2); WHITE BLOOD COUNT 5.6 K/mm3 (4.0-10.0)
[2022-03-21 14:14] LABS: CALCIUM 8.6 mg/dL (8.5-10.1)
[2022-03-21 14:15] LABS: BLOOD UREA NITROGEN 34.5 mg/dL (7-18)
[2022-03-21 14:18] LABS: CREATININE 3.2 mg/dL (0.55-1.3)
[2022-03-21] MEDS ORDERED: SODIUM CHLORIDE 250 ML IV PRN (15:28)
[2022-03-21] MEDS ORDERED: EPOETIN ALFA-EPBX 10,000 UNIT/ML VIAL SQ ONE (16:00)
[2022-03-21] MEDS: ATORVASTATIN CA 80 MG TABLET (FP) PO SCH (22:22)
[2022-03-22 00:33] VITALS: RESP 20
[2022-03-22] MEDS: FUROSEMIDE 40 MG TABLET (FP) PO SCH (06:27)
[2022-03-22] MEDS: CARBIDOPA/LEVODOPA 25/100 TABLET (FP) PO SCH (06:27)
[2022-03-22] MEDS: INSULIN SLIDING SCALE (NOVOLOG) 1 VIAL SQ SCH ×2 (06:27→10:27)
[2022-03-22] MEDS: INSULIN (LEVEMIR) 100 UNITS/ML UNITS SQ SCH (06:27)
[2022-03-22] MEDS: LEVOTHYROXINE NA 75 MCG TABLET (FP) PO SCH (06:28)
[2022-03-22] MEDS: SEVELAMER CARBONATE 800 MG TAB (FP) PO SCH ×2 (08:17→12:10)
[2022-03-22] MEDS ORDERED: predniSONE 10 MG TABLET (UD) PO SCH (10:00)
[2022-03-22] MEDS: PANTOPRAZOLE 40 MG TABLET PO SCH (10:11)
[2022-03-22] MEDS: ESCITALOPRAM OXALATE 10 MG TABLET PO SCH (10:12)
[2022-03-22] MEDS: metoPROLOL SUCCINATE 25 MG TAB.SR.24H (FP) PO SCH (10:12)
[2022-03-22] MEDS: VITAMIN B COMP W-C 1 EA TABLET (NEPHRO-VITE) PO SCH (10:12)
[2022-03-22] MEDS: BUDESONIDE/FORMETEROL FUMARATE 160/4.5 mcg INHALER IH SCH (10:13)
[2022-03-22 14:23] VITALS: BP 137/66; PULSE 64; TEMP 98.6
[2022-03-24] MEDS ORDERED: predniSONE 10 MG TABLET (UD) PO SCH (10:00)
== END 2022-03-22 15:04 | DRG 637 ==
LOC: JER 08:53 → JERBED 09:29 → J4S 18:43 → J6S 02-26 02:27 → J4S 02-27 15:13
PROVIDERS: ADMIT Internal Medicine; ATTEND Nurse Practitioner Family
PROC: 5A1D70Z Performance of Urinary Filtration, Intermittent, Less than 6 Hours Per Day (ICD-10-PCS; 2022-02-16)
PROC: 30233N1 Transfusion of Nonautologous Red Blood Cells into Peripheral Vein, Percutaneous Approach (ICD-10-PCS; principal; 2022-02-27)
PROC: 30233K1 Transfusion of Nonautologous Frozen Plasma into Peripheral Vein, Percutaneous Approach (ICD-10-PCS; 2022-02-28)
PROC: 0DJD8ZZ Inspection of Lower Intestinal Tract, Via Natural or Artificial Opening Endoscopic (ICD-10-PCS; 2022-03-01)
PROC: 5A1D70Z Performance of Urinary Filtration, Intermittent, Less than 6 Hours Per Day (ICD-10-PCS; 2022-03-03)
PROC: 30233R1 Transfusion of Nonautologous Platelets into Peripheral Vein, Percutaneous Approach (ICD-10-PCS; 2022-03-12)
PROC: 3E0H8GC Introduction of Other Therapeutic Substance into Lower GI, Via Natural or Artificial Opening Endoscopic (ICD-10-PCS; 2022-03-14)
PROC: 0W3P8ZZ Control Bleeding in Gastrointestinal Tract, Via Natural or Artificial Opening Endoscopic (ICD-10-PCS; 2022-03-14)
PROC: 5A1D70Z Performance of Urinary Filtration, Intermittent, Less than 6 Hours Per Day (ICD-10-PCS; 2022-03-15)
PROC: 5A1D70Z Performance of Urinary Filtration, Intermittent, Less than 6 Hours Per Day (ICD-10-PCS; 2022-03-19)
PROC: 5A1D70Z Performance of Urinary Filtration, Intermittent, Less than 6 Hours Per Day (ICD-10-PCS; 2022-03-21)
DX: E11.10 Type 2 diabetes mellitus with ketoacidosis without coma (principal); G93.41 Metabolic encephalopathy; N18.6 End stage renal disease; U07.1 COVID-19; K57.33 Diverticulitis of large intestine without perforation or abscess with bleeding; K55.21 Angiodysplasia of colon with hemorrhage; D68.2 Hereditary deficiency of other clotting factors; E87.1 Hypo-osmolality and hyponatremia; N17.9 Acute kidney failure, unspecified; I13.2 Hypertensive heart and chronic kidney disease with heart failure and with stage 5 chronic kidney disease, or end stage renal disease; I50.22 Chronic systolic (congestive) heart failure; D68.51 Activated protein C resistance; K92.2 Gastrointestinal hemorrhage, unspecified; E11.65 Type 2 diabetes mellitus with hyperglycemia; E46 Unspecified protein-calorie malnutrition; Z68.1 Body mass index [BMI] 19.9 or less, adult; D61.818 Other pancytopenia; G20 Parkinson's disease; E78.5 Hyperlipidemia, unspecified; E03.9 Hypothyroidism, unspecified; K57.90 Diverticulosis of intestine, part unspecified, without perforation or abscess without bleeding; K76.0 Fatty (change of) liver, not elsewhere classified; I27.20 Pulmonary hypertension, unspecified; R22.0 Localized swelling, mass and lump, head; I07.1 Rheumatic tricuspid insufficiency; M10.9 Gout, unspecified; K64.8 Other hemorrhoids; F41.9 Anxiety disorder, unspecified; I44.7 Left bundle-branch block, unspecified; I25.119 Atherosclerotic heart disease of native coronary artery with unspecified angina pectoris; K21.00 Gastro-esophageal reflux disease with esophagitis, without bleeding; E87.5 Hyperkalemia; K44.9 Diaphragmatic hernia without obstruction or gangrene; F03.90 Unspecified dementia, unspecified severity, without behavioral disturbance, psychotic disturbance, mood disturbance, and anxiety; D63.1 Anemia in chronic kidney disease; F41.8 Other specified anxiety disorders; E11.22 Type 2 diabetes mellitus with diabetic chronic kidney disease; Z99.2 Dependence on renal dialysis; M54.9 Dorsalgia, unspecified; Z95.1 Presence of aortocoronary bypass graft; Z91.14 Patient's other noncompliance with medication regimen; Z78.9 Other specified health status; Z66 Do not resuscitate; Z86.19 Personal history of other infectious and parasitic diseases
CPT/HCPCS: 36415; 36430; 36511; 70450-TC; 71045-TC-FY; 74174-TC; 74176-TC; 80048; 80053; 82010; 82272; 82607; 82746; 82803; 82962; 83036; 83540; 83550; 83690; 83735; 84100; 84443; 84478; 84484; 85025; 85027; 85384; 85610; 85730; 86803; 86850; 86900; 86901; 86922; 86965; 87340; 87522; 93005; 93010; 94640; 97116-GP; 97161-GP; 99291; C9803-CS; J1100; J1644; J2597; P9012; P9017; P9034; P9037; P9038; P9047; P9058; Q5106; Q9967; U0003; U0005

== ENCOUNTER 2022-03-31 12:06 | Emergency (ER) | payer OTHER ==
[2022-03-31 12:39] VITALS: BP 141/74; PULSE 88; RESP 19; TEMP 98.4; BMI 23.3
[2022-03-31] MEDS ORDERED: ACETAMINOPHEN 1000 MG/100 ML BAG IVPB ONE (13:09)
[2022-03-31] MEDS ORDERED: ACETAMINOPHEN INJECTION 100 ML IVPB ONE (14:29)
[2022-03-31 15:55] LABS: BASO % 0.4 % (0-2.0); EOS % 0.4 % (0-4.5); HEMOGLOBIN 11.2 GM/dL (10.7-15.3); LYMPH % 10.2 % (8-40); MCH 32.4 pg (25.7-33.7); MEAN CELL VOLUME 101.5 fl (80-96); MEAN PLT VOLUME 8.2 fl (7.5-11.1); MONO % 9.4 % (3.8-10.2); NEUT % 79.6 % (42.8-82.8); PLATELET COUNT 173 10^3/uL (134-434); RBC 3.45 M/mm3 (3.60-5.2); WHITE BLOOD COUNT 6.4 K/mm3 (4.0-10.0)
[2022-03-31 16:29] LABS: CALCIUM 8.6 mg/dL (8.5-10.1)
[2022-03-31 16:30] LABS: ALBUMIN 2.6 g/dl (3.4-5.0); BLOOD UREA NITROGEN 56.2 mg/dL (7-18); MAGNESIUM 2.2 mg/dL (1.8-2.4)
[2022-03-31 16:33] LABS: CREATININE 3.8 mg/dL (0.55-1.3); PHOSPHOROUS 2.4 mg/dL (2.5-4.9)
[2022-03-31 16:34] LABS: BILIRUBIN,TOTAL 0.4 mg/dL (0.2-1); TOT PROT 5.4 g/dl (6.4-8.2)
[2022-03-31 16:55] LABS: N-TERMINAL BNP 168791.8 pg/ml (5-450)
[2022-03-31 17:32] LABS: ANISOCYTOSIS 3+; MACROCYTOSIS 1+
[2022-03-31] MEDS ORDERED: ACETAMINOPHEN 325 MG TABLET (FP) PO ONE (18:51)
[2022-03-31] MEDS ORDERED: ACETAMINOPHEN 325 MG TABLET (FP) ONE (18:54)
== END 2022-03-31 20:34 | disposition home or self-care (01) ==
LOC: JER 12:06
PROC: 3E033GC Introduction of Other Therapeutic Substance into Peripheral Vein, Percutaneous Approach (ICD-10-PCS; principal; 2022-03-31)
DX: N18.6 End stage renal disease (principal); Z99.2 Dependence on renal dialysis
CPT/HCPCS: 36415; 71045-TC-FY; 80053; 82962; 83735; 83880; 84100; 85025; 93005; 93010; 99285-25